=== PATIENT | female | born 1955 | race Caucasian/White ===

== ENCOUNTER 2017-04-01 12:48 | Observation (INO) | payer OTHER ==
[~2017-04-01] VITALS: Ht 165.1 cm; Wt 119.2 kg
[~2017-04-01 12:48] MED LIST: CALC500C70 PO; CETI10TA84 PO; LINA1CAP PO; LOSA100T65 PO; SUCR5SUS PO
[2017-04-01 14:45] LABS: BASO % 0.3 %; BASO ABS # 0.03 K/uL (0-0.2); COMPLETE YES; EOS % 1.7 %; HEMATOCRIT 41.4 % (37-47); IG% 0.2 %; LYMPH ABS # 2.37 K/uL (1.2-3.4); MEAN CELL VOLUME 92.2 fL (80-100); MEAN CORPUSCULAR HEMOGLOBIN 30.5 pg (25-34); MEAN CORPUSCULAR HGB CONC 33.1 g/dl (32-36); MEAN PLATELET VOLUME 9.9 fL (7.4-10.4); MONO % 5.2 %; NEUT % 68.6 %; PLATELET COUNT 201 K/uL (130-400); RED BLOOD COUNT 4.49 M/uL (4.2-5.4); WHITE BLOOD COUNT 9.87 K/uL (4.8-10.8)
[2017-04-01 14:56] LABS: POINT OF CARE PRO-BNP 86 pg/ml (0-900)
[2017-04-01 14:58] LABS: PROTHROMBIN TIME (PATIENT) 10.3 SECONDS (9.0-12.0)
[2017-04-01 15:06] LABS: BUN/CREATININE RATIO 22.1 (10-20); CALCIUM 9.3 mg/dl (8.5-10.1); CREATININE 0.62 mg/dl (0.60-1.20); MAGNESIUM 2.3 mg/dl (1.8-2.4); POTASSIUM 3.9 mmol/L (3.5-5.1)
[2017-04-01 15:09] LABS: ALB/GLOB RATIO 1.1 (0.9-2)
--- NOTE | 2017-04-01 15:09 | DIAGNOSTIC IMAGING REPORT ---
CHEST ONE VIEW PORTABLE CLINICAL HISTORY: Chest pain, dyspnea COMPARISON STUDY: 09/04/2014 FINDINGS: The bones soft tissues and hemidiaphragms are normal. The cardiomediastinal silhouette is normal. The lungs are clear. The pulmonary vasculature is normal. IMPRESSION: Negative chest. Electronically signed by: Homar Stahl M.D. 04/01/2017 3:08 PM Dictated Date/Time: 04/01/2017 3:07 PM
[2017-04-01] MEDS ORDERED: OPTIRAY 320 IV PRN (15:30)
--- NOTE | 2017-04-01 15:55 | EMERGENCY ROOM VISIT NOTE ---
History First contact with patient: 14:01 Chief Complaint: HEADACHE Stated Complaint: DIZZY,HOT,SWEATY THEN COLD,CANT SEE AT TIMES History of Present Illness The patient is a 61 year old female who presents to the Emergency Room via private vehicle accompanied by with complaints of "dizzy, hot, sweaty and cold, can't see at times". The patient states that between last week and this week, she has had episodes of substernal chest pain, that feels like a belt wrapped around her chest, radiates up to her neck region. This is been associated with diaphoresis, and shakiness. There is also been associated headache. She notes that when this happened she typically attempts to sleep it off and after 2-3 hours and dissipates. With this there is also associated shortness of breath. She states that most recently, she has experienced 3 episodes this week, and a random in nature. They're not associated with any certain activity and not with exertion. It is important note that she currently is in between and then switch from Cymbalta to trilintex. She also has an extensive abdominal history, and has had obstructions in the past and notes that this is related to that. She states that yesterday during one of these episodes, her blood pressure was 100/40, and then progress back to 112/ 58. Today around 11:30 a.m, she developed chest pain, that lasted roughly half an hour. She then ingested Tums with minimal relief. She does have a past medical history significant for hypertension, high cholesterol. She this time denies any arm weakness, history of heart trouble, blood clots, leg swelling, smoking, hormone use, prolonged travel, recent falls or trauma, urinary symptoms , vaginal discharge, dizziness or lightheadedness. She states this does not feel like her typical reflux. Review of Systems A complete 10-point Review of Systems was discussed with the patient, with pertinent positives and negatives listed in the History of Present Illness. All remaining Review of Systems questions can be considered negative unless otherwise specified. Past Medical/Surgical History Medical Problems: (1) Chest pain (2) Depression (3) Esophageal Reflux (4) Gastric ulcer (5) Glaucoma (6) Hiatal hernia (7) Hypercholesteremia (8) Hypertension (9) IBS (irritable bowel syndrome) (10) Right leg pain (11) Right leg pain Surgical Problems: (1) History of esophagogastroduodenoscopy (2) S/P cholecystectomy (3) S/P hysterectomy (4) S/P Matt fundoplication (without gastrostomy tube) procedure (5) S/P ventral herniorrhaphy Family History FH: coronary artery disease FATHER FH: liver cancer MOTHER Systemic lupus erythematosus BROTHER Social History Smoking Status: Never Smoker Alcohol Use: none Drug Use: none Marital Status: Housing Status: lives with family Occupation Status: employed Current/Historical Medications Scheduled Amlodipine Besylate (Amlodipine Besylate), 10 MG PO QAM Buspirone HCl (Buspirone HCl), 10 MG PO BID Dorzolamide Hcl (Trusopt Oph), 1 DROP OPB BID Duloxetine HCl (Duloxetine HCl), 30 MG PO HS Esomeprazole Magnesium (Nexium), 40 MG PO DAILY Hydrochlorothiazide (Hydrochlorothiazide), 25 MG PO DAILY Linaclotide (Linzess), 1 CAP PO HS Losartan Potassium (Cozaar), 100 MG PO QAM Timolol Maleate (Timolol 0.5% Oph Soln 15 Ml), 1 DROP OPB BID Vortioxetine HBr (Trintellix), 10 MG PO DAILY [Proair], 2 PUFF INH PRN UD Scheduled PRN Cetirizine (Zyrtec), 10 MG PO DAILY PRN for PRN Allergies Coded Allergies: Amoxicillin (Verified Allergy, Severe, AUGMENTIN-ITCH,SWELLING,DIFFICULTY BREATHING, 09/10/16) Clavulanic Acid (Verified Allergy, Severe, AUGMENTIN-ITCH,SWELLING, DIFFICULTY BREATHING, 09/10/16) Replaces AUGMENTIN 250 Penicillins (Verified Allergy, Severe, AUGMENTIN-ITCH,SWELLING,DIFFICULTY BREATHING, 09/10/16) Replaces AUGMENTIN 250 Sulfa Antibiotics (Verified Allergy, Mild, RASH, 04/01/17) Lisinopril (Verified Adverse Reaction, Mild, COUGH, 04/01/17) PER PCP RECORDS Physical Exam Vital Signs Date Time Temp Pulse Resp B/P Pulse Ox O2 Delivery O2 Flow Rate FiO2 04/01/17 17:06 62 18 162/82 97 Room Air 70 156/89 69 176/103 04/01/17 15:14 58 04/01/17 15:03 63 16 194/108 95 Room Air 04/01/17 15:00 58 181/85 63 194/108 04/01/17 13:04 36.6 62 16 161/82 95 Room Air Physical Exam VITAL SIGNS - Vital signs and nursing notes were reviewed. Patient is afebrile , hypertensive at 161/82, non-tachycardic and is saturating well on room air 95% . GENERAL -61-year-old female appearing her stated age who is in no acute distress. Communicates well with provider and answers questions appropriately. SKIN - Without rashes. No petechial rashes. HEAD - NC/AT. EYES - PERRL with EOMI bilaterally. Sclera anicteric. Palpebral conjunctiva pink and moist with no injection noted. EARS - No deformities of external structures noted on gross examination bilaterally. External auditory canals without discharge or otorrhea. Tympanic membranes pearly donato without retraction or bulging. No fluid or purulent material visualized behind the TM. Handle of malleus, umbo, cone of light, pars tensa/flaccid all easily visualized. NOSE - Midline and without cyanosis. No epistaxis or purulent drainage noted. Septum midline without deviation or septal hematoma noted. MOUTH/OROPHARYNX - Without perioral cyanosis. Buccal mucosa pink and moist and without leukoplakia. Tongue midline with equal elevation of palate bilaterally. No tonsillar hypertrophy, erythema, or exudates noted. Fair dentition noted. NECK - Neck with FROM. Supple to palpation. No nuchal rigidity. LUNGS - Chest wall symmetric without accessory muscle use, intercostals retractions, or central cyanosis. Normal vesicular breath sounds CTA B/L. No wheezes, rales, or rhonchi appreciated. CARDIAC - RRR with S1/S2. No murmur, rubs, or gallops appreciated. There is tenderness to palpation overlying the anterior chest. ABDOMEN - Abdominal contour without pulsations or visible masses. BS normoactive all four quadrants. No tenderness, palpable masses, hepatosplenomegaly, or ascites noted. EXTREMITIES - No clubbing or peripheral cyanosis. No pretibial edema present. +5 /5 strength noted in UE/LE bilaterally. NEUROLOGIC - Cranial nerves II through XII grossly intact. PSYCH - Pt is very pleasant and interacts well with examiner. Medical Decision & Procedures ER Provider Diagnostic Interpretation: CHEST CTA for PULMONARY ARTERIES CT DOSE: 618.22 mGy.cm HISTORY: Short of breath. Coughing. TECHNIQUE: Multiaxial CT images of the chest were performed following the intravenous administration of contrast to evaluate the pulmonary arteries. Maximal intensity projection images were also obtained. COMPARISON STUDY: Chest 04/01/2017. FINDINGS: There is a normal caliber thoracic aorta with no evidence for dissection. There is no evidence for pulmonary embolus. No pleural effusions. No pneumothorax. The liver and spleen are unremarkable. No mediastinal or hilar lymphadenopathy. The central airways are patent. The lungs are clear. IMPRESSION: No evidence for pulmonary embolus. Electronically signed by: Lj Maldonado M.D. 04/01/2017 4:17 PM Dictated Date/Time: 04/01/2017 4:10 PM CHEST ONE VIEW PORTABLE CLINICAL HISTORY: Chest pain, dyspnea COMPARISON STUDY: 09/04/2014 FINDINGS: The bones soft tissues and hemidiaphragms are normal. The cardiomediastinal silhouette is normal. The lungs are clear. The pulmonary vasculature is normal. IMPRESSION: Negative chest. Electronically signed by: Homar Stahl M.D. 04/01/2017 3:08 PM Dictated Date/Time: 04/01/2017 3:07 PM Laboratory Results 04/01/17 14:30 Red Blood Count 4.49, Mean Corpuscular Volume 92.2, Mean Corpuscular Hemoglobin 30.5, Mean Corpuscular Hemoglobin Concent 33.1, Mean Platelet Volume 9.9, Neutrophils (%) (Auto) 68.6, Lymphocytes (%) (Auto) 24.0, Monocytes (%) (Auto) 5.2, Eosinophils (%) (Auto) 1.7, Basophils (%) (Auto) 0.3, Neutrophils # (Auto) 6.77, Lymphocytes # (Auto) 2.37, Monocytes # (Auto) 0.51, Eosinophils # (Auto) 0.17, Basophils # (Auto) 0.03 04/01/17 14:30 Test 04/01/17 14:30 04/01/17 14:36 04/01/17 16:50 White Blood Count 9.87 K/uL (4.8-10.8) Red Blood Count 4.49 M/uL (4.2-5.4) Hemoglobin 13.7 g/dL (12.0-16.0) Hematocrit 41.4 % (37-47) Mean Corpuscular Volume 92.2 fL (80-100) Mean Corpuscular Hemoglobin 30.5 pg (25-34) Mean Corpuscular Hemoglobin Concent 33.1 g/dl (32-36) Platelet Count 201 K/uL (130-400) Mean Platelet Volume 9.9 fL (7.4-10.4) Neutrophils (%) (Auto) 68.6 % Lymphocytes (%) (Auto) 24.0 % Monocytes (%) (Auto) 5.2 % Eosinophils (%) (Auto) 1.7 % Basophils (%) (Auto) 0.3 % Neutrophils # (Auto) 6.77 K/uL (1.4-6.5) Lymphocytes # (Auto) 2.37 K/uL (1.2-3.4) Monocytes # (Auto) 0.51 K/uL (0.11-0.59) Eosinophils # (Auto) 0.17 K/uL (0-0.5) Basophils # (Auto) 0.03 K/uL (0-0.2) RDW Standard Deviation 43.0 fL (36.4-46.3) RDW Coefficient of Variation 12.8 % (11.5-14.5) Immature Granulocyte % (Auto) 0.2 % Immature Granulocyte # (Auto) 0.02 K/uL (0.00-0.02) Prothrombin Time 10.3 SECONDS (9.0-12.0) Prothromb Time International Ratio 1.0 (0.9-1.1) Activated Partial Thromboplast Time 25.1 SECONDS (21.0-31.0) Partial Thromboplastin Ratio 1.0 Anion Gap 4.0 mmol/L (3-11) Est Creatinine Clear Calc Drug Dose 124.3 ml/min Estimated GFR () 112.8 Estimated GFR (Non- 97.3 BUN/Creatinine Ratio 22.1 (10-20) Calcium Level 9.3 mg/dl (8.5-10.1) Magnesium Level 2.3 mg/dl (1.8-2.4) Total Bilirubin 0.5 mg/dl (0.2-1) Aspartate Amino Transf (AST/SGOT) 21 U/L (15-37) Alanine Aminotransferase (ALT/SGPT) 40 U/L (12-78) Alkaline Phosphatase 86 U/L (45-117) Total Protein 8.1 gm/dl (6.4-8.2) Albumin 4.2 gm/dl (3.4-5.0) Globulin 3.9 gm/dl (2.5-4.0) Albumin/Globulin Ratio 1.1 (0.9-2) Bedside D-Dimer > 450 ng/mlFEU (0-450) JQ-Ghk-H-Type Natriuretic Peptide 86 pg/ml (0-900) Urine Color YELLOW Urine Appearance CLEAR (CLEAR) Urine pH 5.0 (4.5-7.5) Urine Specific [place] 1.044 (1.000-1.030) Urine Protein NEG (NEG) Urine Glucose (UA) NEG (NEG) Urine Ketones NEG (NEG) Urine Occult Blood NEG (NEG) Urine Nitrite NEG (NEG) Urine Bilirubin NEG (NEG) Urine Urobilinogen NEG (NEG) Urine Leukocyte Esterase MODERATE (NEG) Urine WBC (Auto) 5-10 /hpf (0-5) Urine RBC (Auto) 0-4 /hpf (0-4) Urine Hyaline Casts (Auto) 0 /lpf (0-5) Urine Epithelial Cells (Auto) >30 /lpf (0-5) Urine Bacteria (Auto) NEG (NEG) Medical Decision Patient was seen and evaluated as above. After obtaining a thorough history and physical examination IV access was initiated and the above workup was performed. Patient presents to us today with chief complaint of headache, however after obtaining a thorough history and was more apparent that she was concerned about the hypotension, chest pain and shortness of breath. CBC reveals no leukocytosis or anemia. EKG reveals sinus bradycardia, first-degree AV block. Left axis deviation. No ectopy or ischemic change noted. When compared to EKG of 06/13/2016, PVCs are no longer present, and the SD interval has increased. Coagulation studies are normal other than a d-dimer that was elevated. This prompted CT scan of the chest. Benefits versus risk was discussed with the patient. CMP completely unremarkable other than an elevated BUN/creatinine ratio. Troponin negative 1. Urine reveals moderate leukocytes , 5-10 white blood cells and high specific gravity. Epithelial cells are greater than 30. I suspect a contaminated sample however culture pending. Chest x-ray and CTA were unremarkable. The d-dimer was performed because the patient was not able to the ruled out with the PERC. The patient was educated upon benefit versus risk of either going home or staying in the hospital for cardiac rule out. I informed her that lab work today looks appropriate however given her symptoms, I'm concerned for potential unstable angina, etc. I did discuss the case with my attending, and subsequently the hospitalist. Please refer to further documentation regarding her stay. In evaluation treatment this patient the following differential diagnoses were entertained: MD, ACS, PE, costochondritis, among others. Impression Primary Impression: Chest pain Departure Information Dispostion Admitted as an inpatient Condition FAIR Referrals Stephan Simon M.D. (MEDICAL) (PCP) Patient Instructions My [facility]
[2017-04-01] MEDS ORDERED: BSP/10 PO (16:18)
[2017-04-01] MEDS ORDERED: DORZ2SOL17 OPB (16:18)
[2017-04-01] MEDS ORDERED: VORT1TAB3 PO (16:18)
[2017-04-01] MEDS ORDERED: HYDR25TA5 PO (16:19)
[2017-04-01] MEDS ORDERED: PROAIR INH (16:19)
--- NOTE | 2017-04-01 16:19 | DIAGNOSTIC IMAGING REPORT ---
CHEST CTA for PULMONARY ARTERIES CT DOSE: 618.22 mGy.cm HISTORY: Short of breath. Coughing. TECHNIQUE: Multiaxial CT images of the chest were performed following the intravenous administration of contrast to evaluate the pulmonary arteries. Maximal intensity projection images were also obtained. COMPARISON STUDY: Chest 04/01/2017. FINDINGS: There is a normal caliber thoracic aorta with no evidence for dissection. There is no evidence for pulmonary embolus. No pleural effusions. No pneumothorax. The liver and spleen are unremarkable. No mediastinal or hilar lymphadenopathy. The central airways are patent. The lungs are clear. IMPRESSION: No evidence for pulmonary embolus. Electronically signed by: Lj Maldonado M.D. 04/01/2017 4:17 PM Dictated Date/Time: 04/01/2017 4:10 PM
[2017-04-01] MEDS ORDERED: DULO1CAP40 PO (16:58)
[2017-04-01] MEDS ORDERED: TMPOPS15 OPB (16:58)
[2017-04-01] MEDS ORDERED: NRV/10 PO (16:58)
[2017-04-01 17:07] LABS: URINE APPEARANCE CLEAR (CLEAR); URINE BILIRUBIN NEG (NEG); URINE COLOR YELLOW; URINE EPITHELIAL CELL AUTO >30 /lpf (0-5); URINE NITRITE NEG (NEG); URINE SPECIFIC GRAVITY 1.044 (1.000-1.030); UROBILINOGEN NEG (NEG); ZZUR CULT IF INDIC CLEAN CATCH NO
[2017-04-01 17:11] LABS: MANUAL MICROSCOPIC REQUIRED? NO; REVIEW REQ? NO
[2017-04-01] MEDS ORDERED: ACETAMINOPHEN 325 MG TAB PO PRN (18:00)
[2017-04-01] MEDS ORDERED: NITROGLYCERIN 0.4 MG SL PER TAB CHARGE SL PRN (18:00)
[2017-04-01] MEDS ORDERED: ONDANSETRON INJ 2 MG/ML 2 ML VIAL IV PRN (18:00)
[2017-04-01] MEDS ORDERED: ASPIRIN 324 MG CHEW PO STA (18:03)
[2017-04-01 19:49] VITALS: BP 169/89; PULSE 59; TEMP 36.4; O2SAT 94
[2017-04-01 19:50] VITALS: BP 169/89; PULSE 59; TEMP 36.4; O2SAT 94; Ht 165.1 cm; Wt 119.2 kg
[2017-04-01] MEDS ORDERED: NXM/40 PO (19:58)
[2017-04-01] MEDS ORDERED: IV FLUIDS COMPLETED PRN (20:00)
[2017-04-01] MEDS ORDERED: PANTOprazole INJ 40 MG in SYRINGE 0 ML IV SCH (20:30)
[2017-04-01] MEDS ORDERED: ASPIRIN 81 MG CHEW PO STA (20:31)
[2017-04-01] MEDS ORDERED: ENOXAPARIN 40 MG/0.4 ML SYR SC SCH (21:00)
[2017-04-01] MEDS ORDERED: NON-FORMULARY MEDICATION (Linaclotide (Linzess) 1 CAP) PO SCH (21:00)
[2017-04-01] MEDS: DORZOLAMIDE HCL 2% OPH SOLN 10 ML BTL OPB SCH (21:18)
[2017-04-01] MEDS: TIMOLOL MALEATE 0.5% OP SOLN 5 ML BTL OPB SCH (21:19)
[2017-04-01 21:31] LABS: CKMB/CK RATIO 1.2 (0-3.0)
[2017-04-01] MEDS ORDERED: CLONIDINE HCL 0.1 MG TAB PO PRN (21:45)
--- NOTE | 2017-04-01 22:04 | History and Physical ---
History & Physical Date & Time of Service: April 01, 2017 at 21:52 Chief Complaint: Chest Pain Primary Care Physician: Stephan Simon M.D. (MEDICAL) History of Present Illness Source: patient, clinic records, hospital records 61 year old female with history of Morbid Obesity, HTN, HLD, History of Smoking presenting with recurrence chest discomfort x 1-2 weeks. Patient follows with for Primary Care. Patient states she has been having intermittent chest discomfort- "tightness", central, non radiating, unrelated to exertion, associated with sweating and feeling warm. Episodes are relieved with rest. Around 11 today, patient was driving when she started to have the chest discomfort again. Upon coming home, the chest tightness did not resolve prompting consult to the ER. Patient was noted to be hypertensive at the ER. EKG no signs of acute ischemia, Cardiac markers x1 negative CT chest no PE. On my exam, patient's BP was 176/100. She states that the chest tightness has resolved. No dyspnea, dizziness, nausea, diaphoresis. Reports posterior cervical pain which is chronic, relieved by Alleve that she has been taking for years. Past Medical/Surgical History Medical Problems: (1) Depression Status: Chronic (2) Esophageal Reflux Status: Chronic (3) Gastric ulcer Status: Chronic (4) Glaucoma Status: Chronic (5) Hiatal hernia Status: Chronic (6) Hypercholesteremia Status: Chronic (7) Hypertension Status: Chronic (8) IBS (irritable bowel syndrome) Status: Chronic (9) Right leg pain Status: Resolved (10) Right leg pain Status: Resolved Surgical Problems: (1) History of esophagogastroduodenoscopy Status: Chronic (2) S/P cholecystectomy Status: Chronic (3) S/P hysterectomy Status: Chronic (4) S/P Matt fundoplication (without gastrostomy tube) procedure Status: Chronic (5) S/P ventral herniorrhaphy Status: Chronic Family History FH: coronary artery disease FATHER FH: liver cancer MOTHER Systemic lupus erythematosus BROTHER Social History Smoking Status: Unknown if Ever Smoked Drug Use: none Marital Status: Occupational Status: employed Multi-Drug Resistant Organisms History of MDRO: No Allergies Coded Allergies: Amoxicillin (Verified Allergy, Severe, AUGMENTIN-ITCH,SWELLING,DIFFICULTY BREATHING, 09/10/16) Clavulanic Acid (Verified Allergy, Severe, AUGMENTIN-ITCH,SWELLING, DIFFICULTY BREATHING, 09/10/16) Replaces AUGMENTIN 250 Penicillins (Verified Allergy, Severe, AUGMENTIN-ITCH,SWELLING,DIFFICULTY BREATHING, 09/10/16) Replaces AUGMENTIN 250 Sulfa Antibiotics (Verified Allergy, Mild, RASH, 04/01/17) Lisinopril (Verified Adverse Reaction, Mild, COUGH, 04/01/17) PER PCP RECORDS Home Medications Scheduled Amlodipine Besylate (Amlodipine Besylate), 10 MG PO QAM Buspirone HCl (Buspirone HCl), 10 MG PO BID Dorzolamide Hcl (Trusopt Oph), 1 DROP OPB BID Duloxetine HCl (Duloxetine HCl), 30 MG PO HS Esomeprazole Magnesium (Nexium), 40 MG PO DAILY Hydrochlorothiazide (Hydrochlorothiazide), 25 MG PO DAILY Linaclotide (Linzess), 1 CAP PO HS Losartan Potassium (Cozaar), 100 MG PO QAM Timolol Maleate (Timolol 0.5% Oph Soln 15 Ml), 1 DROP OPB BID Vortioxetine HBr (Trintellix), 10 MG PO DAILY [Proair], 2 PUFF INH PRN UD Scheduled PRN Cetirizine (Zyrtec), 10 MG PO DAILY PRN for PRN Review of Systems Constitutional- no fever; no weight loss Eyes- no acute visual changes ENT- no sinus drainage; no pharyngitis Pulmonary- no cough, no wheezing, no shortness of breath Cardiac- (+) as noted above GI- no nausea, no vomiting, no diarrhea, no melena, no hematochezia - no dysuria, no hematuria Musculoskeletal- no arthralgias, no myalgias Derm- no rashes, no new skin lesions, no changing skin lesions Hematologic- no unusual bruising, no unusual bleeding Lymphatics- no adenopathy Endocrine- no polyuria or polydipsia; no heat or cold intolerance Neuro- no headaches, no focal neurologic symptoms Psych- no anxiety, no depression Physical Exam Vital Signs Date Time Temp Pulse Resp B/P Pulse Ox O2 Delivery O2 Flow Rate FiO2 04/01/17 20:00 Room Air 04/01/17 19:50 36.4 59 20 169/89 94 Room Air 04/01/17 19:49 36.4 59 20 169/89 94 Room Air 04/01/17 19:13 77 18 98 04/01/17 17:06 62 18 162/82 97 Room Air 70 156/89 69 176/103 04/01/17 15:14 58 04/01/17 15:03 63 16 194/108 95 Room Air 04/01/17 15:00 58 181/85 63 194/108 04/01/17 13:04 36.6 62 16 161/82 95 Room Air General Appearance: WD/WN, no apparent distress Head: normocephalic, atraumatic Eyes: normal inspection, EOMI, sclerae normal ENT: normal ENT inspection, hearing grossly normal, pharynx normal Neck: supple, no adenopathy, thyroid normal, no JVD, trachea midline Respiratory/Chest: chest non-tender, lungs clear, normal breath sounds, no respiratory distress, no accessory muscle use Cardiovascular: regular rate, rhythm, no edema, no JVD, no murmur, normal peripheral pulses Abdomen/GI: normal bowel sounds, non tender, soft Back: normal inspection, no CVA tenderness Extremities/Musculoskelatal: normal inspection, no calf tenderness, no pedal edema 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, no motor/sensory deficits, alert, normal mood/affect, normal reflexes, oriented x 3 Skin: normal color, warm/dry, no rash Lymphatic: no adenopathy Diagnostics Laboratory Results Results Past 24 Hours Test 04/01/17 14:30 04/01/17 14:36 04/01/17 16:50 04/01/17 20:51 Range/Units White Blood Count 9.87 4.8-10.8 K/uL Red Blood Count 4.49 4.2-5.4 M/uL Hemoglobin 13.7 12.0-16.0 g/dL Hematocrit 41.4 37-47 % Mean Corpuscular Volume 92.2 80-100 fL Mean Corpuscular Hemoglobin 30.5 25-34 pg Mean Corpuscular Hemoglobin Concent 33.1 32-36 g/dl Platelet Count 201 130-400 K/uL Mean Platelet Volume 9.9 7.4-10.4 fL Neutrophils (%) (Auto) 68.6 % Lymphocytes (%) (Auto) 24.0 % Monocytes (%) (Auto) 5.2 % Eosinophils (%) (Auto) 1.7 % Basophils (%) (Auto) 0.3 % Neutrophils # (Auto) 6.77 1.4-6.5 K/uL Lymphocytes # (Auto) 2.37 1.2-3.4 K/uL Monocytes # (Auto) 0.51 0.11-0.59 K/uL Eosinophils # (Auto) 0.17 0-0.5 K/uL Basophils # (Auto) 0.03 0-0.2 K/uL RDW Standard Deviation 43.0 36.4-46.3 fL RDW Coefficient of Variation 12.8 11.5-14.5 % Immature Granulocyte % (Auto) 0.2 % Immature Granulocyte # (Auto) 0.02 0.00-0.02 K/uL Prothrombin Time 10.3 9.0-12.0 SECONDS Prothromb Time International Ratio 1.0 0.9-1.1 Activated Partial Thromboplast Time 25.1 21.0-31.0 SECONDS Partial Thromboplastin Ratio 1.0 Sodium Level 141 136-145 mmol/L Potassium Level 3.9 3.5-5.1 mmol/L Chloride Level 106 98-107 mmol/L Carbon Dioxide Level 31 21-32 mmol/L Anion Gap 4.0 3-11 mmol/L Blood Urea Nitrogen 14 7-18 mg/dl Creatinine 0.62 0.60-1.20 mg/dl Est Creatinine Clear Calc Drug Dose 124.3 ml/min Estimated GFR () 112.8 Estimated GFR (Non- 97.3 BUN/Creatinine Ratio 22.1 10-20 Random Glucose 96 70-99 mg/dl Calcium Level 9.3 8.5-10.1 mg/dl Magnesium Level 2.3 1.8-2.4 mg/dl Total Bilirubin 0.5 0.2-1 mg/dl Aspartate Amino Transf (AST/SGOT) 21 15-37 U/L Alanine Aminotransferase (ALT/SGPT) 40 12-78 U/L Alkaline Phosphatase 86 45-117 U/L Troponin I < 0.015 < 0.015 0-0.045 ng/ml Total Protein 8.1 6.4-8.2 gm/dl Albumin 4.2 3.4-5.0 gm/dl Globulin 3.9 2.5-4.0 gm/dl Albumin/Globulin Ratio 1.1 0.9-2 Bedside D-Dimer > 450 0-450 ng/mlFEU SG-Qyr-I-Type Natriuretic Peptide 86 0-900 pg/ml Urine Color YELLOW Urine Appearance CLEAR CLEAR Urine pH 5.0 4.5-7.5 Urine Specific [place] 1.044 1.000-1.030 Urine Protein NEG NEG Urine Glucose (UA) NEG NEG Urine Ketones NEG NEG Urine Occult Blood NEG NEG Urine Nitrite NEG NEG Urine Bilirubin NEG NEG Urine Urobilinogen NEG NEG Urine Leukocyte Esterase MODERATE NEG Urine WBC (Auto) 5-10 0-5 /hpf Urine RBC (Auto) 0-4 0-4 /hpf Urine Hyaline Casts (Auto) 0 0-5 /lpf Urine Epithelial Cells (Auto) >30 0-5 /lpf Urine Bacteria (Auto) NEG NEG Total Creatine Kinase 166 26-192 U/L Creatine Kinase MB 2.0 0.5-3.6 ng/ml Creatine Kinase MB Ratio 1.2 0-3.0 Diagnostic Radiology CXR: no acute findings; CT chest: negative for PE EKG sinus bradycardia, left axis deviation, no signs of acute ischemia or infarct Impression Assessment and Plan 61 year old female with history of Morbid Obesity, HTN, HLD, History of Smoking presenting with recurrence chest discomfort x 1-2 weeks. CHEST PAIN R/O ACS FROM UNCONTROLLED HYPERTENSION? - risk factors: history of smoking, family history, hypertension - serial cardiac markers echo - start Aspirin cannot start bet ozzie as patient has sinus bradycardia on ekg - add Nitropaste continue usual Losartan 100mg, Amlodipine 10mg, HCTZ 25mg ELEVATED D DIMER - CT chest negative for PE - check Doppler US of the legs HYPERTENSION - management as noted above DYSLIPIDEMIA - check lipid panel - Pravastatin has been discontinued as outpatient HISTORY OF DEPRESSION stable continue Trintellix CHRONIC CERVICALGIA - hold NSAIDs - PRN Tramadol DVT PROPHYLAXIS Lovenox Disposition anticipate d/c home when medically stable Advanced Directives Existing Living Will: No Existing Power of Pipe Assembly Worker: No VTE Prophylaxis VTE Risk Assessment Done? Y/N: Yes Risk Level: Moderate
[2017-04-01] MEDS: TRAMADOL HCL 50 MG TAB PO PRN (22:26)
[2017-04-01 23:00] VITALS: BP 131/66; PULSE 66
[2017-04-01] MEDS: NITROGLYCERIN OINT 2% 1GM PACKET EXT SCH (23:31)
[2017-04-01 23:34] VITALS: BP 172/87; PULSE 63; TEMP 36.7; O2SAT 92
[2017-04-02] VITALS (10 sets, daily range): BP systolic 117–179; BP diastolic 62–83; PULSE 60–66; TEMP 36.5–37; O2SAT 90–95
[2017-04-02] MEDS ORDERED: TRINTELLIX-ORDER AWAITING ACTION SCH
[2017-04-02] MEDS: NITROGLYCERIN OINT 2% 1GM PACKET EXT SCH ×2 (06:08→12:17)
[2017-04-02] MEDS: DORZOLAMIDE HCL 2% OPH SOLN 10 ML BTL OPB SCH (08:30)
[2017-04-02] MEDS: TIMOLOL MALEATE 0.5% OP SOLN 5 ML BTL OPB SCH (08:34)
[2017-04-02] MEDS: TRAMADOL HCL 50 MG TAB PO PRN (08:40)
[2017-04-02] MEDS ORDERED: LOSARTAN POTASSIUM 50 MG TAB PO SCH (09:00)
[2017-04-02] MEDS ORDERED: VORTIOXETINE HBR 10 MG PO SCH (09:00)
[2017-04-02] MEDS ORDERED: HYDROCHLOROTHIAZIDE 25 MG TAB PO SCH (09:00)
[2017-04-02] MEDS ORDERED: ASPIRIN 81 MG ECTAB PO SCH (09:00)
[2017-04-02] MEDS ORDERED: AMLODIPINE BESYLATE 5 MG TAB PO SCH (09:00)
[2017-04-02] MEDS ORDERED: PERFLUTREN LIPID MICROSPHERE (DEFINITY) IV ONE (09:48)
[2017-04-02] MEDS ORDERED: PANTOprazole INJ 40 MG in SYRINGE 0 ML IV SCH (11:00)
--- NOTE | 2017-04-02 13:06 | ECHOCARDIOGRAM REPORT ---
*NOTICE TO RECEIVING DEMOCRAT AGENCY This information is strictly Confidential and protected under [place] law. [place] law prohibits you from making any further disclosure of this information unless further disclosure is expressly permitted by the written consent of the person to whom it pertains or is authorized by law. A general authorization for the release of medical or other information is not sufficient for this purpose. Hospital accepts no responsibility if the information is made available to any other person, INCLUDING THE PATIENT. Interpretation Summary * Name: BONNIE MORSE Study Date: 04/02/2017 09:14 AM BP: 158/71 mmHg * Patient Location: [facility]\S\N278\S\2 HR: 65 * : 1955 (M/d/yyyy) Gender: Female Height: 65 in * Age: 61 yrs Ethnicity: CA Weight: 266 lb * Ordering Physician: Venkat Toro * Referring Physician: Stephan Simon (MEDICAL) * Performed By: Shantell Lubin * * Reason For Study: CHEST PAIN * BSA: 2.2 m2 * -- Conclusions -- * There is moderate concentric left ventricular hypertrophy. * Left ventricular systolic function is normal. * Ejection Fraction = 65-70%. * No significant valvular pathology. Procedure Details * A complete two-dimensional transthoracic echocardiogram was performed (2D, M-mode, Doppler and color flow Doppler). * There were technical limitations due to patient'sbody habitus * A contrast injection of Definity was performed to improve assessment of LV function. * Contrast was injected into an intravenous site in the left arm. * One vial of Definity ultrasound contrast was diluted in normal saline to a total volume of 10 ml. A total of '2' ml of solution was administered during imaging. * Lot # [id number] of Definity utilized for procedure. * Expiration date 03/08. * The attending nurse who injected the contrast agent was CASSIDY ACKERMAN RN. Left Ventricle * The left ventricle is normal in size. * There is moderate concentric left ventricular hypertrophy. * Ejection Fraction = 65-70%. * Left ventricular systolic function is normal. * The left ventricular wall motion is normal. Right Ventricle * The right ventricle is normal size. * The right ventricular systolic function is normal. Atria * The left atrial size is normal. * Right atrial size is normal. * The interatrial septum is intact with no evidence for an atrial septal defect. Mitral Valve * The mitral valve anatomy is normal. * Significant mitral regurgitation is absent. Tricuspid Valve * The tricuspid valve is normal in structure and function. Aortic Valve * The aortic valve is normal in structure and function. Pulmonic Valve * The pulmonic valve is not well visualized. * There is no significant pulmonary regurgitation. Great Vessels * The aortic root and proximal ascending aorta are normal sized. Pericardium/Pleural * There is no pericardial effusion. MMode 2D Measurements and Calculations IVSd 1.6 cm IVSs 1.8 cm LVIDd 4.3 cm LVIDs 2.7 cm LVPWd 0.95 cm LVPWs 1.6 cm IVS/LVPW 1.7 FS 36.2 % EDV(Teich) 81.5 ml ESV(Teich) 27.6 ml EF(Teich) 66.2 % EDV(cubed) 77.6 ml ESV(cubed) 20.2 ml EF(cubed) 74.0 % % IVS thick 11.0 % % LVPW thick 68.2 % LV mass(C)d 198.9 grams LV mass(C)dI 89.1 grams/m\S\2 LV mass(C)s 171.7 grams LV mass(C)sI 76.9 grams/m\S\2 SV(Teich) 53.9 ml SI(Teich) 24.2 ml/m\S\2 SV(cubed) 57.4 ml SI(cubed) 25.7 ml/m\S\2 ACS 1.3 cm asc Aorta Diam 3.2 cm LVOT diam 1.7 cm LVOT area 2.4 cm\S\2 LVAd ap4 36.8 cm\S\2 LVLd ap4 9.5 cm EDV(MOD-sp4) 113.9 ml EDV(sp4-el) 120.5 ml LVAs ap4 19.8 cm\S\2 LVLs ap4 8.2 cm ESV(MOD-sp4) 38.3 ml ESV(sp4-el) 40.8 ml EF(MOD-sp4) 66.4 % EF(sp4-el) 66.1 % LVAd ap2 22.8 cm\S\2 LVLd ap2 7.7 cm EDV(MOD-sp2) 55.2 ml EDV(sp2-el) 57.4 ml LVAs ap2 12.6 cm\S\2 LVLs ap2 6.9 cm ESV(MOD-sp2) 18.1 ml ESV(sp2-el) 19.5 ml EF(MOD-sp2) 67.1 % EF(sp2-el) 66.0 % LVLd %diff -23.81 % EDV(MOD-bp) 89.4 ml LVLs %diff -17.96 % ESV(MOD-bp) 28.7 ml EF(MOD-bp) 68.0 % SV(MOD-sp4) 75.7 ml SI(MOD-sp4) 33.9 ml/m\S\2 SV(MOD-sp2) 37.1 ml SI(MOD-sp2) 16.6 ml/m\S\2 SV(MOD-bp) 60.8 ml SI(MOD-bp) 27.2 ml/m\S\2 SV(sp4-el) 79.7 ml SI(sp4-el) 35.7 ml/m\S\2 SV(sp2-el) 37.9 ml SI(sp2-el) 17.0 ml/m\S\2 Doppler Measurements and Calculations MV E max mitchell 80.6 cm/sec MV A max mitchell 82.3 cm/sec MV E/A 0.98 MV dec time 0.37 sec Ao V2 max 158.9 cm/sec Ao max PG 10.1 mmHg Ao max PG (full) 6.1 mmHg CLAUDIA(V,A) 1.5 cm\S\2 CLAUDIA(V,D) 1.5 cm\S\2 LV V1 max PG 4.0 mmHg LV V1 max 99.4 cm/sec PA V2 max 107.8 cm/sec PA max PG 4.7 mmHg PI end-d mitchell 107.1 cm/sec
--- NOTE | 2017-04-02 15:59 | CARDIOLOGY CONSULTATION ---
DATE OF CONSULTATION: 04/02/2017 ATTENDING PHYSICIAN: Venkat Toro MD REASON FOR CONSULTATION: Chest pain. HISTORY OF PRESENT ILLNESS: This is a 61-year-old female with a history of fibromyalgia, obesity, and hypertension, who has been having recurrent chest pain for several weeks. This pain is atypical in the sense that it lasts continuously for several hours. It is increased with respiration and movement. It is not necessarily associated with activity or shortness of breath. She presented to the Emergency Department with the above complaints. Her EKG shows no acute changes that would suggest ischemic heart disease and her cardiac markers have been negative since admission. Her pain is very reproducible by palpation across the anterior chest along the costosternal joints. She has no prior history of diabetes. She is treated for hypertension. She has a remote history of smoking, but quit over 30 years ago. ALLERGIES: TO AMOXICILLIN, CLAVULANIC ACID, PENICILLIN, SULFA ANTIBIOTICS AND LISINOPRIL. PAST MEDICAL HISTORY: As outlined above, she has a history of fibromyalgia. She also was treated for GERD, esophageal reflux and hiatal hernia. She has a history of hypertension and irritable bowel syndrome, which is cared for by the GI service. She has no prior history of heart disease, strokes or kidney disease. SOCIAL HISTORY: She lives with her . FAMILY MEDICAL HISTORY: Significant for father with coronary artery disease. REVIEW OF SYSTEMS: A 10-point review of systems is negative except for the history of chief complaint. PHYSICAL EXAMINATION: GENERAL: She is alert and oriented. VITAL SIGNS: Blood pressure is 150/80, pulse is regular at 60 beats per minute. She is afebrile. HEENT: She is normocephalic. Pupils are equal and reactive to light. Extraocular muscles are intact bilaterally. NECK: The neck veins are flat. The carotids have good upstrokes bilaterally without bruits. Thyroid is nonpalpable. RESPIRATORY: Breath sounds equal bilaterally and clear to auscultation. CARDIOVASCULAR: Heart has a regular rhythm. Normal S1 and S2. No S3 or S4. No cardiac rubs or murmurs heard. Chest pain is very reproducible with palpation across the anterior chest. GASTROINTESTINAL: Abdomen is soft and nontender without organomegaly. EXTREMITIES: Free of edema, digit clubbing, or cyanosis. NEUROLOGIC: Grossly intact. SKIN: Warm to touch. LYMPH NODES: Negative to palpation. LABORATORY DATA: EKG reveals a sinus rhythm with a first-degree AV block and is otherwise within normal limits. Cardiac troponins are negative x3. Creatinine is 0.62. Hemoglobin is 13.7. IMPRESSION: 1. Noncardiac chest pain, most likely related to fibromyalgia, as it is very reproducible by palpation of the costosternal joints. 2. Gastroesophageal reflux. 3. Obesity. 4. Irritable bowel syndrome. RECOMMENDATIONS: I will review the echocardiogram when it is completed; however, I think her chest pain is very unlikely to be cardiac in origin. I would treat her chest pain with nonsteroidal anti-inflammatory medications, which she takes on occasion for her fibromyalgia. I do not believe any additional cardiac testing is required during her hospital stay. At some point, because of her age and family history, she can be screened as an outpatient with stress testing. In regard to her hypertension, I believe also that that can be managed as an outpatient.
--- NOTE | 2017-04-02 16:49 | Progress Note ---
Medicine Progress Note Date & Time of Visit: April 02, 2017 at 16:41. Subjective patient seen resting in bed, comfortable states she feels much better- "i feel human again" no chest pain, dyspnea, palpitations, dizziness, weakness denies other symptoms states she is ready and would like to be discharged today Objective Last 8 Hrs Date Time Temp Pulse Resp B/P Pulse Ox O2 Delivery O2 Flow Rate FiO2 04/02/17 15:06 37.0 63 18 117/73 92 04/02/17 11:33 36.5 60 18 139/62 90 Physical Exam: General- oriented x 3, not in distress, speaks in sentences with no effort Eyes- anicteric Neck- supple, no JVD Lungs- clear breath sounds bilaterally Heart- normal rate, regular rhythm; no murmurs Abdomen- normal rate, regular rhythm, no murmurs Extremities- no pretibial edema, no calf tenderness Neuro- alert, oriented x 3; no gross focal deficits Skin- warm & dry Laboratory Results: Last 24 Hours Test 04/01/17 16:50 04/01/17 20:51 04/02/17 02:15 Urine Color YELLOW Urine Appearance CLEAR Urine pH 5.0 Urine Specific [place] 1.044 Urine Protein NEG Urine Glucose (UA) NEG Urine Ketones NEG Urine Occult Blood NEG Urine Nitrite NEG Urine Bilirubin NEG Urine Urobilinogen NEG Urine Leukocyte Esterase MODERATE Urine WBC (Auto) 5-10 /hpf Urine RBC (Auto) 0-4 /hpf Urine Hyaline Casts (Auto) 0 /lpf Urine Epithelial Cells (Auto) >30 /lpf Urine Bacteria (Auto) NEG Total Creatine Kinase 166 U/L 136 U/L Creatine Kinase MB 2.0 ng/ml 1.3 ng/ml Creatine Kinase MB Ratio 1.2 1.0 Troponin I < 0.015 ng/ml < 0.015 ng/ml Assessment & Plan 61 year old female with history of Morbid Obesity, HTN, HLD, History of Smoking presenting with recurrence chest discomfort x 1-2 weeks. CHEST PAIN R/O ACS FROM UNCONTROLLED HYPERTENSION? - risk factors: history of smoking, family history, hypertension - BP systolic 190s on admission - serial cardiac markers: negative ekg: sinus bradycardia with 1st degree av block echo: * There is moderate concentric left ventricular hypertrophy. * Left ventricular systolic function is normal. * Ejection Fraction = 65-70%. * No significant valvular pathology. - given Aspirin and Nitropaste continued on usual Losartan 100mg, Amlodipine 10mg, HCTZ 25mg BP improved to 117/73 - evaluated by Dr. Ramsey, Masonry Supervisor chest pain atypical, likely musculoskeletal etiology - discharge plan: add Clonidine 0.1mg po BID continue usual Losartan, Amlodipine, HCTZ monitor BP on ff up with PCP outpatient stress testing ELEVATED D DIMER - CT chest negative for PE - check Doppler US of the legs HYPERTENSION - management as noted above DYSLIPIDEMIA - ff up as outpatient HISTORY OF DEPRESSION stable continue Trintellix CHRONIC CERVICALGIA - continue usual pain medication DVT PROPHYLAXIS Lovenox Disposition d/c home today ff up with PCP in 1 week Current Inpatient Medications: Current Inpatient Medications Medications (Trade) Dose Ordered Sig/Temitope Route Start Time Stop Time Status Last Admin Dose Admin Ioversol (Optiray 320) 100 ml UD PRN IV 04/01/17 15:30 04/05/17 15:29 Enoxaparin Sodium (Lovenox Inj) 40 mg Q24H SC 04/01/17 21:00 05/01/17 20:59 04/01/17 21:20 40 MG Acetaminophen (Tylenol Tab) 650 mg Q4H PRN PO 04/01/17 18:00 05/01/17 17:59 Ondansetron HCl (Zofran Inj) 4 mg Q6H PRN IV 04/01/17 18:00 05/01/17 17:59 Nitroglycerin (Nitrostat Tab) 0.4 mg UD PRN SL 04/01/17 18:00 05/01/17 17:59 Aspirin (Ecotrin Tab) 81 mg QAM PO 04/02/17 09:00 05/02/17 08:59 04/02/17 08:33 81 MG Nitroglycerin 0.5 inch 0.5 inch Q6H EXT 04/02/17 00:00 05/02/17 00:00 04/02/17 12:17 0.5 INCH Pantoprazole Sodium/Syringe (Protonix Inj/ Syringe) 10 ml @ 5 mls/min DAILY@11 IV 04/02/17 11:00 05/02/17 10:59 04/02/17 12:17 5 MLS/MIN Dorzolamide HCl (Trusopt 2% Oph Soln) 1 drops BID OPB 04/01/17 21:00 05/01/17 20:59 04/02/17 08:30 1 DROPS Hydrochlorothiazide (Hydrochlorothiazide Tab) 25 mg DAILY PO 04/02/17 09:00 05/02/17 08:59 04/02/17 08:33 25 MG Losartan Potassium (coZAAR TAB) 100 mg QAM PO 04/02/17 09:00 05/02/17 08:59 04/02/17 08:35 100 MG Timolol Maleate (Timoptic 0.5% Oph Soln) 1 drops BID OPB 04/01/17 21:00 05/01/17 20:59 04/02/17 08:34 1 DROPS Amlodipine Besylate (Norvasc Tab) 10 mg QAM PO 04/02/17 09:00 05/02/17 08:59 04/02/17 08:33 10 MG Buspirone HCl (Buspar Tab) 10 mg BID PO 04/01/17 21:00 05/01/17 20:59 04/02/17 08:31 10 MG Miscellaneous (Iv Fluids Completed) 1 ea PRN PRN N/A 04/01/17 20:00 04/01/18 19:59 Miscellaneous Information (Order Awaiting Action) 1 ea QS N/A 04/02/17 00:00 05/02/17 00:00 Miscellaneous Information (Order Awaiting Action) 1 ea QS N/A 04/02/17 00:00 05/02/17 00:00 Tramadol HCl (Ultram Tab) 50 mg Q6H PRN PO 04/01/17 21:45 05/01/17 21:44 04/02/17 08:40 50 MG Clonidine HCl (Catapres Tab) 0.1 mg Q6H PRN PO 04/01/17 21:45 05/01/17 21:44
[2017-04-02] MEDS ORDERED: CTP1X PO (16:50)
--- NOTE | 2017-04-02 16:57 | Discharge Instructions ---
Discharge Instructions Date of Service April 02, 2017. Admission Reason for Admission: Chest Pain Discharge Discharge Diagnosis / Problem: CHEST PAIN Discharge Goals Goal(s): Diagnostic testing, Therapeutic intervention Activity Recommendations Activity Limitations: as noted below (NO HEAVY EXERTION UNTIL RE-EVALUATED BY PRIMARY CARE PHYSICIAN) Lifting Limitations: until after follow-up appointment Exercise/Sports Limitations: until after follow-up appointment . Instructions / Follow-Up Instructions / Follow-Up PLEASE REVIEW YOUR NEW MEDICATION AND FOLLOW INSTRUCTIONS CAREFULLY. RETURN TO ER IMMEDIATELY IF WITH RECURRENCE OF SYMPTOMS. CALL PRIMARY CARE PHYSICIAN OR RETURN TO ER IMMEDIATELY IF YOU HAVE WEAKNESS, DIZZINESS, HEADACHE. OBSERVE LOW SALT DIET (LESS THAN 2G OF SODIUM A DAY OR LESS THAN 1 TEASPOON OF SALT A DAY). FOLLOW UP WITH PRIMARY CARE PHYSICIAN IN 1 WEEK (SCHEDULING DEPARTMENT WILL CALL YOU REGARDING THE APPOINTMENT DATE). Current Hospital Diet Patient's current hospital diet: AHA Diet (Heart Healthy) Discharge Diet Recommended Diet: AHA Diet (Heart Healthy) Procedures Procedures Performed: ECHOCARDIOGRAM Pending Studies Studies pending at discharge: yes List of pending studies: STRESS TEST Medical Emergencies . Who to Call and When: Medical Emergencies: If at any time you feel your situation is an emergency, please call 911 immediately. . Non-Emergent Contact Non-Emergency issues call your: Primary Care Provider Call Non-Emergent contact if: you have a fever, your pain is not controlled, you have any medication questions . . "Provider Documentation" section prepared by Venkat Toro. . VTE Core Measure Inpt VTE Proph given/why not?: Enoxaparin (Lovenox)SQ
--- NOTE | 2017-04-02 17:01 | Discharge Summary ---
Discharge Summary Date of Service April 02, 2017. Discharge Summary Admission Date: April 01, 2017 at 18:00 Discharge Date: April 02, 2017 Discharge Disposition: Home Principal Diagnosis: ATYPICAL CHEST PAIN, UNCONTROLLED HYPERTENSION Secondary Diagnoses/Problems: PLEASE REFER TO HOSPITAL COURSE BELOW. Procedures: Interpretation Summary * Name: BONNIE MORSE Study Date: 04/02/2017 09:14 AM BP: 158/71 mmHg * Patient Location: [facility]\\S\\78\\S\\2 HR: 65 * : 1955 (M/d/yyyy) Gender: Female Height: 65 in * Age: 61 yrs Ethnicity: [place] Weight: 266 lb * Ordering Physician: Venkat Toro * Referring Physician: Stephan Simon (MEDICAL) * Performed By: Shantell Lubin * * Reason For Study: CHEST PAIN * BSA: 2.2 m2 * -- Conclusions -- * There is moderate concentric left ventricular hypertrophy. * Left ventricular systolic function is normal. * Ejection Fraction = 65-70%. * No significant valvular pathology. Procedure Details * A complete two-dimensional transthoracic echocardiogram was performed (2D, M-mode, Doppler and color flow Doppler). * There were technical limitations due to patient'sbody habitus * A contrast injection of Definity was performed to improve assessment of LV function. * Contrast was injected into an intravenous site in the left arm. * One vial of Definity ultrasound contrast was diluted in normal saline to a total volume of 10 ml. A total of '2' ml of solution was administered during imaging. * Lot # [id number] of Definity utilized for procedure. * Expiration date 03/08. * The attending nurse who injected the contrast agent was CASSIDY ACKERMAN RN. Left Ventricle * The left ventricle is normal in size. * There is moderate concentric left ventricular hypertrophy. * Ejection Fraction = 65-70%. * Left ventricular systolic function is normal. * The left ventricular wall motion is normal. Right Ventricle * The right ventricle is normal size. * The right ventricular systolic function is normal. Atria * The left atrial size is normal. * Right atrial size is normal. * The interatrial septum is intact with no evidence for an atrial septal defect. Mitral Valve * The mitral valve anatomy is normal. * Significant mitral regurgitation is absent. Tricuspid Valve * The tricuspid valve is normal in structure and function. Aortic Valve * The aortic valve is normal in structure and function. Pulmonic Valve * The pulmonic valve is not well visualized. * There is no significant pulmonary regurgitation. Great Vessels * The aortic root and proximal ascending aorta are normal sized. Pericardium/Pleural * There is no pericardial effusion. Consultations: AUTOMOTIVE TIRE TESTING SUPERVISOR DR. RAMSEY Pending Studies/Follow-Up: CLONIDINE ADDED FOR UNCONTROLLED HYPERTENSION; CONSIDER OUTPATIENT STRESS TEST; PLEASE REFER TO HOSPITAL COURSE BELOW FOR FURTHER DETAILS. Medication Reconciliation New Medications: Clonidine HCl (Clonidine HCl) 0.1 Mg Tab 1 TAB PO BID for 30 Days, #60 TABS 2 Refills Continued Medications: Amlodipine Besylate (Amlodipine Besylate) 10 Mg Tab 10 MG PO QAM Buspirone HCl (Buspirone HCl) 10 Mg Tab 10 MG PO BID, #60 Cetirizine (Zyrtec) 10 Mg Tab 10 MG PO DAILY PRN for PRN, TAB Dorzolamide Hcl (Trusopt Oph) 2 % [place] 1 DROP OPB BID, #30 Esomeprazole Magnesium (Nexium) 40 Mg Capcr 40 MG PO DAILY, CAP Hydrochlorothiazide (Hydrochlorothiazide) 25 Mg Tab 25 MG PO DAILY, #30 Linaclotide (Linzess) 145 Mcg Cap 1 CAP PO HS Losartan Potassium (Cozaar) 100 Mg Tab 100 MG PO QAM, TAB Timolol Maleate (Timolol 0.5% Oph Soln 15 Ml) 15 Ml Soln 1 DROP OPB BID Vortioxetine HBr (Trintellix) 20 Mg Tab 10 MG PO DAILY, #30 [Proair] () 2 PUFF INH PRN UD Discontinued Medications: Duloxetine HCl (Duloxetine HCl) 60 Mg Cap 30 MG PO HS Admission Information HPI (per Admitting provider): 61 year old female with history of Morbid Obesity, HTN, HLD, History of Smoking presenting with recurrence chest discomfort x 1-2 weeks. Patient follows with for Primary Care. Patient states she has been having intermittent chest discomfort- "tightness", central, non radiating, unrelated to exertion, associated with sweating and feeling warm. Episodes are relieved with rest. Around 11 today, patient was driving when she started to have the chest discomfort again. Upon coming home, the chest tightness did not resolve prompting consult to the ER. Patient was noted to be hypertensive at the ER. EKG no signs of acute ischemia, Cardiac markers x1 negative CT chest no PE. On my exam, patient's BP was 176/100. She states that the chest tightness has resolved. No dyspnea, dizziness, nausea, diaphoresis. Reports posterior cervical pain which is chronic, relieved by Alleve that she has been taking for years. Physical Exam (per Admitting): General Appearance: WD/WN, no apparent distress Head: normocephalic, atraumatic Eyes: normal inspection, EOMI, sclerae normal ENT: normal ENT inspection, hearing grossly normal, pharynx normal Neck: supple, no adenopathy, thyroid normal, no JVD, trachea midline Respiratory/Chest: chest non-tender, lungs clear, normal breath sounds, no respiratory distress, no accessory muscle use Cardiovascular: regular rate, rhythm, no edema, no JVD, no murmur, normal peripheral pulses Abdomen/GI: normal bowel sounds, non tender, soft Back: normal inspection, no CVA tenderness Extremities/Musculoskelatal: normal inspection, no calf tenderness, no pedal edema Neurologic/Psych: financial services representative II-XII nml as tested, no motor/sensory deficits, alert , normal mood/affect, normal reflexes, oriented x 3 Skin: normal color, warm/dry, no rash Lymphatic: no adenopathy Hospital Course 61 year old female with history of Morbid Obesity, HTN, HLD, History of Smoking presenting with recurrence chest discomfort x 1-2 weeks. CHEST PAIN, ACS RULED OUT FROM UNCONTROLLED HYPERTENSION? FROM MUSCULOSKELETAL PAIN? - risk factors: history of smoking, family history, hypertension - BP systolic 190s on admission - serial cardiac markers: negative ekg: sinus bradycardia with 1st degree av block echo: * There is moderate concentric left ventricular hypertrophy. * Left ventricular systolic function is normal. * Ejection Fraction = 65-70%. * No significant valvular pathology. - given Aspirin and Nitropaste continued on usual Losartan 100mg, Amlodipine 10mg, HCTZ 25mg BP improved to 117/73 - evaluated by Dr. Ramsey, Talent Consultant chest pain atypical, likely musculoskeletal etiology - discharge plan: add Clonidine 0.1mg po BID continue usual Losartan, Amlodipine, HCTZ monitor BP on ff up with PCP outpatient stress testing ELEVATED D DIMER - just had a knee injection recently - CT chest negative for PE - Doppler US of the legs: no DVT HYPERTENSION - management as noted above DYSLIPIDEMIA - ff up as outpatient HISTORY OF DEPRESSION stable continue Trintellix CHRONIC CERVICALGIA - continue usual pain medication Disposition d/c home ff up with PCP in 1 week Total time spent on discharge = 30 minutes This includes examination of the patient, discharge planning, medication reconciliation, and communication with other providers. Discharge Instructions Discharge Instructions Date of Service April 02, 2017. Admission Reason for Admission: Chest Pain Discharge Discharge Diagnosis / Problem: CHEST PAIN Discharge Goals Goal(s): Diagnostic testing, Therapeutic intervention Activity Recommendations Activity Limitations: as noted below (NO HEAVY EXERTION UNTIL RE-EVALUATED BY PRIMARY CARE PHYSICIAN) Lifting Limitations: until after follow-up appointment Exercise/Sports Limitations: until after follow-up appointment . Instructions / Follow-Up Instructions / Follow-Up PLEASE REVIEW YOUR NEW MEDICATION AND FOLLOW INSTRUCTIONS CAREFULLY. RETURN TO ER IMMEDIATELY IF WITH RECURRENCE OF SYMPTOMS. CALL PRIMARY CARE PHYSICIAN OR RETURN TO ER IMMEDIATELY IF YOU HAVE WEAKNESS, DIZZINESS, HEADACHE. OBSERVE LOW SALT DIET (LESS THAN 2G OF SODIUM A DAY OR LESS THAN 1 TEASPOON OF SALT A DAY). FOLLOW UP WITH PRIMARY CARE PHYSICIAN IN 1 WEEK (SCHEDULING DEPARTMENT WILL CALL YOU REGARDING THE APPOINTMENT DATE). Current Hospital Diet Patient's current hospital diet: AHA Diet (Heart Healthy) Discharge Diet Recommended Diet: AHA Diet (Heart Healthy) Procedures Procedures Performed: ECHOCARDIOGRAM Pending Studies Studies pending at discharge: yes List of pending studies: STRESS TEST Medical Emergencies . Who to Call and When: Medical Emergencies: If at any time you feel your situation is an emergency, please call 911 immediately. . Non-Emergent Contact Non-Emergency issues call your: Primary Care Provider Call Non-Emergent contact if: you have a fever, your pain is not controlled, you have any medication questions . . "Provider Documentation" section prepared by Venkat Toro. . VTE Core Measure Inpt VTE Proph given/why not?: Enoxaparin (Lovenox)SQ
--- NOTE | 2017-04-02 18:13 | DIAGNOSTIC IMAGING REPORT ---
ULTRASOUND BILATERAL LOWER EXTREMITY VENOUS CLINICAL HISTORY: Elevated d-dimer. Atypical chest pain. Clinical concern for deep venous thrombosis. COMPARISON STUDY: Right lower extremity venous ultrasound dated 06/08/2014. TECHNIQUE: Real-time, grayscale, and color Doppler sonography of the deep veins of the right and left lower extremity was performed from the inguinal crease to the calf. Compression and augmentation were utilized. FINDINGS: There is no sonographic evidence of deep venous thrombosis identified in the right or left lower extremity. The common femoral, superficial femoral, and popliteal veins are patent and normally compressible bilaterally. The greater saphenous vein and the profunda femoris vein at the junction with the common femoral vein are clear in both legs. The visualized calf veins are patent bilaterally. IMPRESSION: There is no sonographic evidence of deep venous thrombosis identified in the right or left lower extremity. Electronically signed by: Jim Rodriguez M.D. 04/02/2017 6:11 PM Dictated Date/Time: 04/02/2017 6:11 PM
[2017-04-26] MEDS ORDERED: HYT/2 PO (23:51)
[2017-04-26] MEDS ORDERED: PANT40TA2 PO (23:51)
[2017-04-26] MEDS ORDERED: MELO15TA4 PO (23:52)
[2017-04-27] MEDS ORDERED: FURO40TA3 PO (00:08)
== END 2017-04-02 18:55 | disposition home or self-care (01) ==
LOC: ENRESERVTM → ENRESERVDT → C.EDB 12:51 → C.MED 18:00
PROVIDERS: ADMIT Internal Medicine; ATTEND Internal Medicine
DX: R07.89 Other chest pain (principal); I10 Essential (primary) hypertension; E78.00 Pure hypercholesterolemia, unspecified; F32.9 Major depressive disorder, single episode, unspecified; E78.5 Hyperlipidemia, unspecified; K21.9 Gastro-esophageal reflux disease without esophagitis; E66.01 Morbid (severe) obesity due to excess calories; Z87.891 Personal history of nicotine dependence; Z88.1 Allergy status to other antibiotic agents; Z98.890 Other specified postprocedural states; Z88.0 Allergy status to penicillin; Z88.2 Allergy status to sulfonamides; Z90.49 Acquired absence of other specified parts of digestive tract; Z90.710 Acquired absence of both cervix and uterus; Z82.49 Family history of ischemic heart disease and other diseases of the circulatory system; Z80.0 Family history of malignant neoplasm of digestive organs; Z83.49 Family history of other endocrine, nutritional and metabolic diseases

== ENCOUNTER 2017-10-05 19:33 | Emergency (ER) | payer OTHER ==
[~2017-10-05] VITALS: Ht 165.1 cm; Wt 120.1 kg
[~2017-10-05 19:33] MED LIST changes: +BSP/10 PO; -CALC500C70 PO; -CETI10TA84 PO; +CTP1X PO; +DORZ2SOL17 OPB; +FURO40TA3 PO; +HYDR25TA5 PO; +HYT/2 PO; +MELO15TA4 PO; +NRV/10 PO; +NXM/40 PO; +PANT40TA2 PO; -SUCR5SUS PO; +TMPOPS15 OPB; +VORT1TAB3 PO
[2017-10-05 19:45] VITALS: TEMP 36.7; Ht 165.1 cm; Wt 120.1 kg
--- NOTE | 2017-10-05 20:28 | EMERGENCY ROOM VISIT NOTE ---
History First contact with patient: 19:56 Chief Complaint: ABDOMINAL PAIN Stated Complaint: L SIDE PAIN Nursing Triage Summary: Patient had bronchitis last week and was treated with Zpack, now c/o left flank / abdominal pain radiating to back since Tuesday. States she has been having diarrhea with blood in her stool. Diarrhea started when she started Zpack. History of Present Illness The patient is a 61 year old female with morbid obesity, HTN, supposed UC, diverticulosis, and extensive abdominal surgical history who presents to the Emergency Room with complaints of 1 week of diarrhea with some melena. She reports having taken Z-pac last week for bronchitis. She then started having excessive diarrhea. She reports that her stools have been foul smelling but that the number of episodes have reduced. This morning she had a little bright blood and the stools are starting to form. She also reports LLQ pain that radiates to the flank. She denies urinary symptoms. She denies chest pain, shortness of breath. Review of Systems See HPI for pertinent positives & negatives. A total of 10 systems reviewed and were otherwise negative. Past Medical/Surgical History Medical Problems: (1) Chest pain (2) Depression (3) Esophageal Reflux (4) Gastric ulcer (5) Glaucoma (6) Hiatal hernia (7) Hypercholesteremia (8) Hypertension (9) IBS (irritable bowel syndrome) (10) Right leg pain (11) Right leg pain Surgical Problems: (1) History of esophagogastroduodenoscopy (2) S/P cholecystectomy (3) S/P hysterectomy (4) S/P Matt fundoplication (without gastrostomy tube) procedure (5) S/P ventral herniorrhaphy Family History FH: coronary artery disease FATHER FH: liver cancer MOTHER Systemic lupus erythematosus BROTHER Social History Smoking Status: Never Smoker Alcohol Use: none Drug Use: none Marital Status: Housing Status: lives with family Occupation Status: employed Current/Historical Medications Scheduled Amlodipine Besylate (Amlodipine Besylate), 10 MG PO QAM Clonidine HCl (Clonidine HCl), 1 TAB PO BID Dorzolamide Hcl (Trusopt Oph), 1 DROP OPB BID Esomeprazole Magnesium (Nexium), 40 MG PO DAILY Hydrochlorothiazide (Hydrochlorothiazide), 25 MG PO DAILY Linaclotide (Linzess), 145 MCG PO 2XWK Losartan Potassium (Cozaar), 100 MG PO QAM Pantoprazole (Pantoprazole Sodium), 40 MG PO BID Sucralfate (Sucralfate), 1 TAB PO DAILY Timolol Maleate (Timolol 0.5% Oph Soln 15 Ml), 1 DROP OPB BID Vilazodone Hcl (Viibryd), 1 TAB PO HS Scheduled PRN Buspirone HCl (Buspirone HCl), 10 MG PO BID PRN for prn Furosemide (Lasix), 40 MG PO DAILY PRN for water retention Meloxicam (Meloxicam), 15 MG PO DAILY PRN for prn Physical Exam Vital Signs Date Time Temp Pulse Resp B/P (MAP) Pulse Ox O2 Delivery O2 Flow Rate FiO2 10/05/17 23:11 66 15 176/80 94 10/05/17 21:50 66 16 180/83 95 Room Air 10/05/17 19:45 36.7 64 16 160/92 95 Room Air Physical Exam GENERAL: Patient is in no acute distress. HEENT: normocephalic atraumatic, mucous membranes moist, no nasal congestion, no scleral icterus. NECK: No stridor, no adenopathy, trachea is midline. LUNGS: Clear to auscultation bilaterally, no wheeze, no rhonchi, breath sounds equal. HEART: Without murmurs gallops or rubs, regular rate and rhythm. ABDOMEN: Soft, LLQ tenderness, bowel sounds positive, no hernias, no peritonitis. EXTREMITIES: No cyanosis or edema, full range of motion of all the joints NEUROLOGIC: Oriented x 3, no acute motor or sensory deficits, no focal weakness. SKIN: No rash, no jaundice, no diaphoresis. Medical Decision & Procedures Laboratory Results 10/05/17 20:40 Red Blood Count 4.68, Mean Corpuscular Volume 88.7, Mean Corpuscular Hemoglobin 30.1, Mean Corpuscular Hemoglobin Concent 34.0, Mean Platelet Volume 10.3, Neutrophils (%) (Auto) 52.8, Lymphocytes (%) (Auto) 36.1, Monocytes (%) (Auto) 7.3, Eosinophils (%) (Auto) 3.2, Basophils (%) (Auto) 0.3, Neutrophils # (Auto) 3.48, Lymphocytes # (Auto) 2.38, Monocytes # (Auto) 0.48, Eosinophils # (Auto) 0.21, Basophils # (Auto) 0.02 10/05/17 20:40 Test 10/05/17 20:40 10/05/17 20:47 10/05/17 21:39 White Blood Count 6.59 K/uL (4.8-10.8) Red Blood Count 4.68 M/uL (4.2-5.4) Hemoglobin 14.1 g/dL (12.0-16.0) Hematocrit 41.5 % (37-47) Mean Corpuscular Volume 88.7 fL (80-100) Mean Corpuscular Hemoglobin 30.1 pg (25-34) Mean Corpuscular Hemoglobin Concent 34.0 g/dl (32-36) Platelet Count 206 K/uL (130-400) Mean Platelet Volume 10.3 fL (7.4-10.4) Neutrophils (%) (Auto) 52.8 % Lymphocytes (%) (Auto) 36.1 % Monocytes (%) (Auto) 7.3 % Eosinophils (%) (Auto) 3.2 % Basophils (%) (Auto) 0.3 % Neutrophils # (Auto) 3.48 K/uL (1.4-6.5) Lymphocytes # (Auto) 2.38 K/uL (1.2-3.4) Monocytes # (Auto) 0.48 K/uL (0.11-0.59) Eosinophils # (Auto) 0.21 K/uL (0-0.5) Basophils # (Auto) 0.02 K/uL (0-0.2) RDW Standard Deviation 40.6 fL (36.4-46.3) RDW Coefficient of Variation 12.7 % (11.5-14.5) Immature Granulocyte % (Auto) 0.3 % Immature Granulocyte # (Auto) 0.02 K/uL (0.00-0.02) Prothrombin Time 10.7 SECONDS (9.0-12.0) Prothromb Time International Ratio 1.0 (0.9-1.1) Activated Partial Thromboplast Time 23.8 SECONDS (21.0-31.0) Partial Thromboplastin Ratio 0.9 Anion Gap 9.0 mmol/L (3-11) Est Creatinine Clear Calc Drug Dose 112.8 ml/min Estimated GFR () 109.4 Estimated GFR (Non- 94.4 BUN/Creatinine Ratio 13.8 (10-20) Calcium Level 8.9 mg/dl (8.5-10.1) Magnesium Level 2.1 mg/dl (1.8-2.4) Total Bilirubin 1.0 mg/dl (0.2-1) Direct Bilirubin 0.2 mg/dl (0-0.2) Aspartate Amino Transf (AST/SGOT) 41 U/L (15-37) Alanine Aminotransferase (ALT/SGPT) 51 U/L (12-78) Alkaline Phosphatase 68 U/L (45-117) Total Creatine Kinase 105 U/L (26-192) Creatine Kinase MB 0.8 ng/ml (0.5-3.6) Creatine Kinase MB Ratio 0.8 (0-3.0) Total Protein 8.0 gm/dl (6.4-8.2) Albumin 4.2 gm/dl (3.4-5.0) Globulin 3.8 gm/dl (2.5-4.0) Albumin/Globulin Ratio 1.1 (0.9-2) Lipase 94 U/L (73-393) Bedside Troponin I < 0.030 ng/ml (0-0.045) Urine Color DK YELLOW Urine Appearance CLOUDY (CLEAR) Urine pH 5.0 (4.5-7.5) Urine Specific [place] 1.022 (1.000-1.030) Urine Protein NEG (NEG) Urine Glucose (UA) NEG (NEG) Urine Ketones NEG (NEG) Urine Occult Blood NEG (NEG) Urine Nitrite NEG (NEG) Urine Bilirubin NEG (NEG) Urine Urobilinogen NEG (NEG) Urine Leukocyte Esterase LARGE (NEG) Urine WBC (Auto) >30 /hpf (0-5) Urine RBC (Auto) 0-4 /hpf (0-4) Urine Hyaline Casts (Auto) 10-30 /lpf (0-5) Urine Epithelial Cells (Auto) >30 /lpf (0-5) Urine Bacteria (Auto) NEG (NEG) Medications Administered Medications (Trade) Dose Ordered Sig/Temitope Route Start Time Stop Time Status Last Admin Dose Admin Potassium Chloride (Klor-Con M10) 20 meq STK-MED ONCE .ROUTE 10/05/17 22:31 10/05/17 22:32 DC 11/15/17 22:33 20 MEQ ED Course 1999 Patient was evaluated in B2 [address] abd/pelvis ordered. 2114 Patient feels a little better, no worsening 2029 Patient and family were advised of normal findings. Discharge plans discussed. Medical Decision This is a 61 y/o F who presents with diarrhea and LLQ pain. Etiologies considered such as appendicitis, diverticulitis, C.diff, PUD, biliary pathology , UTI, pancreatitis, obstruction, mesenteric ischemia, aortic pathology, infections, inflammatory bowel disease, renal colic, as well as others were entertained. CBC, BMP and U/A were largely unremarkable. She did have mild hypokalemia that was replaced orally. CT was unremarkable for acute pathologies. She was unable to provide a stool sample to check for C.Diff. However, given resolution of her diarrhea, C.Diff is less likely. Her symptoms were likely from viral gastroenteritis. She had already improved in terms of her diarrhea prior to arrival to the ED. The patient was advised to try a soft diet and slowly advance as tolerated. She was recommended to follow up with her PCP in 2-3 days for a recheck of her condition. She understood and agrees with the plan. Impression Primary Impression: Acute gastroenteritis Departure Information Dispostion Home / Self-Care Condition FAIR Referrals Stephan Simon M.D. (MEDICAL) (PCP) Patient Instructions My [facility]
[2017-10-05] MEDS ORDERED: OPTIRAY 320 IV PRN (20:30)
--- NOTE | 2017-10-05 20:33 | EMERGENCY ROOM VISIT NOTE ---
ED Visit Note First contact with patient: 19:56 HPI: ?of h/o UC and diverticulitis. Here with LLQ abd pain, diarrhea, and ? black stool. PE: AFVSS, NAD NC/AT RRR, no murmurs CTAB Abd soft with mild LLQ ttp. Ext: no edema, erythema Neuro: grossly intact Plan: Rectal exam with brown stool, guaiac negative. CT abd pel negative for acute findings. UA dirty, patient without urinary sx. Will wait for cx. Plan for pcp f/u. I reviewed the patient's past medical history, medications, and visit nursing notes. I discussed the case with the resident physician, examined the patient, and agree with the findings and plan as documented in the residents note unless otherwise clarified here by me.
[2017-10-05] MEDS ORDERED: FURO40TA3 PO (20:43)
[2017-10-05] MEDS ORDERED: SUCR1TAB PO (20:51)
[2017-10-05 20:57] LABS: BASO % 0.3 %; BASO ABS # 0.02 K/uL (0-0.2); COMPLETE YES; EOS % 3.2 %; HEMATOCRIT 41.5 % (37-47); IG% 0.3 %; LYMPH % 36.1 %; LYMPH ABS # 2.38 K/uL (1.2-3.4); MEAN CELL VOLUME 88.7 fL (80-100); MEAN CORPUSCULAR HEMOGLOBIN 30.1 pg (25-34); MEAN PLATELET VOLUME 10.3 fL (7.4-10.4); MONO % 7.3 %; NEUT % 52.8 %; PLATELET COUNT 206 K/uL (130-400); RED BLOOD COUNT 4.68 M/uL (4.2-5.4); WHITE BLOOD COUNT 6.59 K/uL (4.8-10.8)
[2017-10-05] MEDS ORDERED: VILA1TAB PO (20:57)
[2017-10-05 21:14] LABS: PARTIAL THROMBOPLASTIN RATIO 0.9; PROTHROMBIN TIME (PATIENT) 10.7 SECONDS (9.0-12.0)
[2017-10-05 21:16] LABS: BUN/CREATININE RATIO 13.8 (10-20); CALCIUM 8.9 mg/dl (8.5-10.1); CREATININE 0.68 mg/dl (0.60-1.20); MAGNESIUM 2.1 mg/dl (1.8-2.4); POTASSIUM 3.3 mmol/L (3.5-5.1)
[2017-10-05 21:19] LABS: ALB/GLOB RATIO 1.1 (0.9-2); CKMB/CK RATIO 0.8 (0-3.0)
[2017-10-05 22:11] LABS: URINE APPEARANCE CLOUDY (CLEAR); URINE BILIRUBIN NEG (NEG); URINE COLOR DK YELLOW; URINE EPITHELIAL CELL AUTO >30 /lpf (0-5); URINE NITRITE NEG (NEG); URINE SPECIFIC GRAVITY 1.022 (1.000-1.030); UROBILINOGEN NEG (NEG); ZZUR CULT IF INDIC CLEAN CATCH YES
[2017-10-05 22:13] LABS: MANUAL MICROSCOPIC REQUIRED? NO; REVIEW REQ? NO
[2017-10-05] MEDS ORDERED: POTASSIUM CHLORIDE 20 MEQ TABCR PO STA (22:21)
[2017-10-05] MEDS ORDERED: POTASSIUM CHLORIDE 10 MEQ TABCR ONE (22:31)
--- NOTE | 2017-10-05 22:47 | DIAGNOSTIC IMAGING REPORT ---
ABDOMEN AND PELVIS CT WITH IV CONTRAST CT DOSE: 1609.61 mGy.cm HISTORY: Acute left lower quadrant abdominal pain with diarrhea llq pain, diarrhea TECHNIQUE: Multiaxial CT images of the abdomen and pelvis were performed following the use of intravenous contrast. A dose lowering technique was utilized adhering to the principles of ALARA. COMPARISON STUDY: CT abdomen and pelvis 09/09/2014. FINDINGS: There is mild bibasilar atelectasis. No pneumoperitoneum identified. No pneumatosis. Imaged inferior cardiac chambers are unremarkable. Hepatomegaly with hepatic steatosis redemonstrated. Prior cholecystectomy. Spleen is mildly enlarged, 14 cm. Pancreas and adrenal glands are unremarkable. The kidneys, ureters and urinary bladder are unremarkable. Prior hysterectomy. The aorta is normal in course and caliber with mild/moderate plaquing. There is no bulky adenopathy. No bowel obstruction. No focal bowel wall thickening. A few scattered colonic diverticula are present without diverticulitis. The appendix is not seen and is likely surgically absent. Prior ventral abdominal wall herniorrhaphy. Recurrent hernia at site of prior surgery is noted with mesenteric fat interposed between the hernia mesh, unchanged from comparison. Patient obesity noted. Bones appear intact. There are degenerative changes of the spine and pelvis. IMPRESSION: 1. Mild sigmoid colon diverticulosis without evidence of acute diverticulitis. 2. Hepatomegaly, hepatic steatosis and splenomegaly redemonstrated. 3. Prior cholecystectomy, appendectomy and ventral abdominal wall herniorrhaphy. Recurrent abdominal wall fat-containing hernia again seen, unchanged. Electronically signed by: Joshua Garber M.D. 10/05/2017 10:46 PM Dictated Date/Time: 10/05/2017 10:41 PM
[2017-10-05 23:11] VITALS: BP 176/80; PULSE 66; O2SAT 94
== END 2017-10-05 23:13 | disposition home or self-care (01) ==
LOC: C.EDB 19:34
DX: K52.9 Noninfective gastroenteritis and colitis, unspecified (principal); E66.01 Morbid (severe) obesity due to excess calories; I10 Essential (primary) hypertension; K57.90 Diverticulosis of intestine, part unspecified, without perforation or abscess without bleeding; F32.9 Major depressive disorder, single episode, unspecified; K21.9 Gastro-esophageal reflux disease without esophagitis; H40.9 Unspecified glaucoma; K58.9 Irritable bowel syndrome, unspecified; Z90.49 Acquired absence of other specified parts of digestive tract; Z90.710 Acquired absence of both cervix and uterus; Z87.11 Personal history of peptic ulcer disease; Z82.49 Family history of ischemic heart disease and other diseases of the circulatory system; Z80.0 Family history of malignant neoplasm of digestive organs; Z83.49 Family history of other endocrine, nutritional and metabolic diseases

== ENCOUNTER 2019-11-26 17:39 | Inpatient (IN) ==
[2019-11-26] MEDS ORDERED: ALBUT/IPRATROP 3MG/0.5MG NEB 3 ML VIAL NEB STA (18:30)
[2019-11-26 19:00] LABS: Basophils # (auto) 0.02 K/uL (0-0.2); Basophils % (auto) 0.1 %; Eosinophils % (auto) 0.6 %; Hematocrit (blood only) 41.3 % (37-47); Hemoglobin 14.1 g/dL (12.0-16.0); Immature Granulocytes # (auto) 0.03 K/uL (0.00-0.02); Immature Granulocytes % (auto) 0.2 %; Lymphocytes # (auto) 1.46 K/uL (1.2-3.4); Lymphocytes % (auto) 8.3 %; Mean Corpuscular Hgb Conc 34.1 g/dL (32-36); Mean Corpuscular Volume 93.9 fL (80-100); Mean Platelet Volume 10.2 fL (7.4-10.4); Monocytes # (auto) 0.93 K/uL (0.11-0.59); Monocytes % (auto) 5.3 %; Neutrophils # (auto) 14.99 K/uL (1.4-6.5); Neutrophils % (auto) 85.5 %; Platelet Count 222 K/uL (130-400); RDW Coefficient of Variation 12.6 % (11.5-14.5); RDW Standard Deviation 42.8 fL (36.4-46.3); White Blood Count 17.53 K/uL (4.8-10.8)
[2019-11-26 19:09] LABS: BUN Creatinine Ratio 19.4 (10-20); Blood Urea Nitrogen 14 mg/dl (7-18); Calcium 8.9 mg/dl (8.5-10.1); Carbon Dioxide 27 mmol/L (21-32); Chloride 104 mmol/L (98-107); Creatinine Clr Calc Pharmacy 106.2 ml/min; Est GFR (African American) 106.1; Est GFR (Non-African American) 91.6; Glucose 130 mg/dl (70-99); Potassium 3.8 mmol/L (3.5-5.1); Sodium 137 mmol/L (136-145)
[2019-11-26] MEDS ORDERED: OPTIRAY 320 125ml IV PRN (19:11)
[2019-11-26 19:14] LABS: NT Pro B Type Natriuretic Pept 100 pg/ml (0-900); Troponin I < 0.015 ng/ml (0-0.045)
--- NOTE | 2019-11-26 19:27 | XRay Report ---
XR chest 1V portable CLINICAL HISTORY: 64 years-old Female presenting with cough, sob, s/p port placement. TECHNIQUE: Portable upright AP view of the chest was obtained. COMPARISON: 11/26/2019 at 12:41 PM. FINDINGS: Right subclavian Mediport terminates in the lower SVC. Cardiac silhouette normal in size. Patchy bila teral mid to basilar predominant pulmonary opacities. Mild prominence of pulmonary vasculature. These findings are new from prior. No large effusion or pneumothorax. Degenerative changes of the thoracic spine. Upper abdomen normal. IMPRESSION: 1. Interval development of pulmonary vascular congestion and suspected mild pulmonary edema. An infe ctious etiology would be unexpected to arise in such a short time frame. Findings are not overly conv incing for aspiration. ACT 112: Negative or not required by law. Electronically signed by: Johnson Muñoz M.D. 11/26/2019 7:26 PM
--- NOTE | 2019-11-26 19:34 | CT Scan Report ---
CT angio chest PE protocol CLINICAL HISTORY: 64 years-old Female presenting with cough, shortness of breath, clinical concern fo r pulmonary embolism. TECHNIQUE: Multidetector CT angiography of the chest was performed after administration of intravenou s contrast. 3-D volumetric and/or maximum intensity projection (MIP) images were subsequently reconst ructed for review. IV contrast: 120 mL of Optiray 320. One or more dose lowering techniques were used consistent with the principles of ALARA (as low as reasonably achievable), including automatic expos ure control, mA or kV adjustment to individual patient size, and/or use of iterative reconstruction. COMPARISON: 04/01/2017. CT DOSE (mGy.cm): The estimated cumulative dose is 926.13 mGy.cm. FINDINGS: System Development Engineer topogram: Unremarkable. Pulmonary vasculature: The study is suboptimal for the assessment of the pulmonary vascular tree secondary to timing of the contrast bolus and respiratory motion artifact. Allowing for limited image quality, no central fillin g defect to suggest pulmonary embolus. Main pulmonary artery is not enlarged. No flattening of the in terventricular septum. No intracardiac filling defect. No reflux of contrast into the hepatic veins. Remaining chest: Soft tissues: Normal thyroid. Right subclavian Mediport with associated soft tissue gas along the upp er right breast, likely indicating recent placement. Catheter terminates in the SVC. No axillary, sup raclavicular, mediastinal, or hilar lymphadenopathy. Normal aorta. Top normal heart size. Coronary ar indio calcification. Small right and trace left pleural effusions. Upper abdomen normal. Lungs and airways: No pneumothorax. Significant bronchial wall thickening diffusely though most sever e in the lower lobes. Pulmonary arteries enlarged relative to adjacent bronchi. Severe smooth interlo bular septal thickening diffusely. Patchy groundglass opacity with a peribronchial vascular and basil ar predominance. Overall evaluation of lung parenchyma is extremely limited by respiratory motion art ifact. Musculoskeletal: Degenerative changes of the spine. Degenerative changes of the glenohumeral joints, right greater than left. IMPRESSION: 1. Allowing for suboptimal image quality, no evidence of pulmonary embolus. 2. Severe congestive changes and early/mild pulmonary edema. 3. Small right and trace left pleural effusions. ACT 112: Negative or not required by law. Electronically signed by: Johnson Muñoz M.D. 11/26/2019 7:33 PM
[2019-11-26] MEDS ORDERED: POTASSIUM CHLORIDE 20 MEQ TABCR PO STA (19:48)
[2019-11-26] MEDS ORDERED: FUROSEMIDE 40 MG/4 ML VIAL IV STA (19:48)
[2019-11-26] MEDS ORDERED: ACETAMINOPHEN 325 MG TAB PO PRN (22:30)
[2019-11-26] MEDS: MONTELUKAST SODIUM 10 MG TABLET PO SCH (23:07)
--- NOTE | 2019-11-26 23:49 | History & Physical Report ---
Date of Service November 26, 2019 Assessment & Plan (1) Pulmonary edema: -Admit to [facility] with telemetry -Patient presenting from home with reports of worsening cough and shortness of breath after port placement today -In the ED, CXR and CT chest suggestive of pulmonary edema -Does not appear that patient received a large volume of IVF during procedure today however she did receive propofol which has a listed side effect of pulmonary edema -Aspiration considered however patient had marked improvement in symptoms after receiving IV Lasix in ED; lung sounds currently clear, saturating well on room air -WBC 17 K, possibly stress response; recheck CBC in a.m. -Hold on further diuresis and antibiotics for now -Echocardiogram 11/22/2019 EF 60 to 64%, grade 1 diastolic dysfunction; given acuity of onset of pulmonary edema, will update echo -Cardiology consult who was notified by the ED (2) Asthma: -No wheezing on exam, saturating well on room air -Continue home inhalers (3) Breast cancer: -Recent diagnosis, has not started chemotherapy yet -Follows with Dr. Christiansen (4) Hypertension: -BP controlled, continue amlodipine, hydralazine, losartan (5) Hyperlipidemia: -Continue rosuvastatin and Zetia (6) Fibromyalgia: (7) Anxiety: -Continue home medications (8) DVT prophylaxis: -SCDs due to invasive procedure today History of Present Illness Chief Complaint: Shortness of breath, cough Primary Care Provider: Christine Massey, 64-year-old female who presents the ED for evaluation of shortness of breath and cough. Patient had a port placed today as an outpatient procedure in preparation for beginning chemotherapy for breast cancer. Patient reports that shortly after the procedure, she developed cough and shortness of breath. When she arrived home, she was able to lie down for a short nap however whenever she woke up she had severe coughing with wheezing. She reports feeling short of breath at rest. Denies sputum production. No chest pain. She denies lightheadedness, dizziness, diaphoresis, syncopal events. Reports she otherwise been feeling well recently. No other recent illnesses, fevers, chills. Denies abdominal pain, nausea, vomiting, diarrhea. No urinary symptoms. In the ED, patient was found to be hypoxic on room air at 89% which improved with 2 L of oxygen via nasal cannula. CXR and CT chest are suggestive of pulmonary edema. Patient received nebulizer treatment and 40 mg IV Lasix with marked improvement in her symptoms. Allergies Allergy/AdvReac Type Severity Reaction Status Date / Time amoxicillin Allergy Severe AUGMENTIN-ITCH,SWELLING,DIFFICULTY Verified 11/26/19 09:25 BREATHING clavulanic acid Allergy Severe AUGMENTIN-ITCH,SWELLING,DIFFICULTY Verified 11/26/19 09:25 BREATHING Penicillins Allergy Severe AUGMENTIN-ITCH,SWELLING,DIFFICULTY Verified 11/26/19 09:25 BREATHING lisinopril Allergy Mild COUGH/Swell Verified 11/26/19 09:25 ing Sulfa (Sulfonamide Allergy Mild RASH Verified 11/26/19 09:25 Antibiotics) Home Medications Home Medications Medication Instructions Recorded Confirmed Type Combigan 1 drp OPHTHALMIC (EYE) BID 08/15/18 11/26/19 History amlodipine 10 mg PO QAM 08/15/18 11/26/19 History losartan 100 mg PO QAM 08/15/18 11/26/19 History ofloxacin 1 drp OPHTHALMIC (EYE) BID 08/15/18 11/26/19 History pantoprazole [Protonix] 40 mg PO QAM PRN 08/15/18 11/26/19 History albuterol sulfate [ProAir HFA] 2 puff INHALATION QID PRN 07/18/19 11/26/19 History cholecalciferol (vitamin D3) 1,000 unit PO QPM 07/18/19 11/26/19 History [Vitamin D3] duloxetine 60 mg PO QAM 07/18/19 11/26/19 History fluticasone propionate [Flonase 2 spray INTRANASAL DAILY PRN 07/18/19 11/26/19 History Allergy Relief] furosemide 20 mg PO QAM PRN 07/18/19 11/26/19 History naproxen sodium 550 mg PO BID PRN 07/18/19 11/26/19 History sucralfate 1 g PO TIDM PRN 07/18/19 11/26/19 History Symbicort 2 puff INHALATION BID 11/23/19 11/26/19 History ezetimibe 10 mg PO DAILY 11/26/19 11/26/19 History hydralazine 50 mg PO BID 11/26/19 11/26/19 History montelukast 10 mg PO DAILY 11/26/19 11/26/19 History rosuvastatin 40 mg PO DAILY 11/26/19 11/26/19 History Past Med/Surg History Medical History Anxiety Asthma Breast cancer Carotid stenosis Chronic back pain Depression Fibromyalgia GI bleed hx (noted in [facility] records from 07/2018); no further details available Glaucoma Hyperlipidemia Hypertension Irritable bowel disease Morbid obesity Osteoarthritis Restrictive lung disease Rheumatoid arthritis SOB (shortness of breath) on exertion Stomach ulcer hx (noted in [facility] records from 07/2018); no further details available Vertigo BPPV Surgical History H/O exploratory laparotomy History of bilateral tubal ligation History of section X 1 History of colonoscopy History of dilatation and curettage History of esophagogastroduodenoscopy (EGD) 07/25/19 ([facility]) History of herniorrhaphy MULTIPLE History of nasal septoplasty History of repair of hiatal hernia lap History of repair of rotator cuff RIGHT History of tonsillectomy and adenoidectomy History of tooth extraction History of total abdominal hysterectomy and bilateral salpingo-oophorectomy Family History Father Diabetes Social History Preferred Language: Ghanaian Communication Ability: Effective Dental Office Assistant Required: No Beliefs That Will Affect Care: None Current Living Situation: Spouse Other Information That Helps Us Care for You: No Feels Safe at Home: Yes Safety Concerns: Feels Safe At This Time Smoking Status: Former smoker Second Hand Exposure: No ; Hx Alcohol Use: No Hx Substance Use: No Review of Systems Review of Systems: ROS per HPI, all other systems reviewed and negative Physical Exam Constitutional: WD/WN, vitals as above Eyes: PERRL, conjunctivae normal, anicteric sclerae ENMT: external ear and nose normal, oropharynx normal Respiratory: normal respiratory effort, lungs clear to auscultation Cardiovascular: Rate/Rhythm: regular rate and regular rhythm Vessels: normal peripheral pulses Extremities: no edema Chest (Breasts): Chest: + vascular access device or port (Right chest, dressing dry and intact, no surrounding erythema or drainage) Gastrointestinal (Abdomen): normal bowel sounds, soft, nontender, no hepatosplenomegaly Musculoskeletal: no cyanosis or clubbing, extremities motor strength 5/5 Skin: no rashes, warm and dry Neurologic: PERRL, EOMI, accommodation nl, no face palsy, no dysarthria Psychiatric: A+Ox3, euthymic affect Results & Data Vital Signs (Past 12 Hours) Vital Signs Temp Pulse Pulse Pulse Resp BP BP 11/26/19 22:20 36.4 C L 71 16 159/88 H 11/26/19 22:05 68 20 144/80 H 11/26/19 21:30 69 20 149/81 H 11/26/19 19:58 11/26/19 19:29 67 19 143/93 H 11/26/19 19:01 66 16 11/26/19 17:48 71 28 H 158/85 H Pulse Ox 11/26/19 22:20 92 11/26/19 22:05 92 11/26/19 21:30 92 11/26/19 19:58 89 L 11/26/19 19:29 92 11/26/19 19:01 91 11/26/19 17:48 92 Laboratory Results Short CBC 11/26/19 Range/Units 18:35 WBC 17.53 H (4.8-10.8) K/uL Hgb 14.1 (12.0-16.0) g/dL Hct 41.3 (37-47) % Plt Count 222 (130-400) K/uL BMP 11/26/19 18:35 Sodium 137 Potassium 3.8 Chloride 104 Carbon Dioxide 27 BUN 14 Creatinine 0.70 Glucose 130 H Calcium 8.9 Cardiac Enzymes 11/26/19 11/26/19 Range/Units 18:35 22:51 Troponin I < 0.015 < 0.015 (0-0.045) ng/ml Diagnostic Findings CHEST CTA IMPRESSION: 1. Allowing for suboptimal image quality, no evidence of pulmonary embolus. 2. Severe congestive changes and early/mild pulmonary edema. 3. Small right and trace left pleural effusions. CXR IMPRESSION: 1. Interval development of pulmonary vascular congestion and suspected mild pulmonary edema. An infectious etiology would be unexpected to arise in such a short time frame. Findings are not overly convincing for aspiration. Code Status & VTE Plan VTE Prophylaxis Plan VTE Prophylaxis will be ordered: Yes Supervising Physician Co-Signing Physician Notes Pt was seen and examined. Agreed with Lucrecia FACING END TRIMMER exam, assessment and plan. 64 y/o Female with PMH with PMH HTN, asthma, breast ca, dyslipidemia, Fibromyalgia present to the ER for worsening SOB. Pt had a port place today as an outpatient procedure to start chemo for breast ca. She said that while they were placing the port she started to cough. She said that when she went home she developed w orsening SOB. In the ED, patient was found to be hypoxic on room air at 89% which improved with 2 L of oxygen via nasal cannula. CXR showed interval development of pulmonary vascular congestion and suspected mild pulmonary edema. CTA chest showed no evidence of pulmonary embolus and severe congestive changes and early/mild pulmonary edema. Received IV lasix in the ER. Pt had an echo done few days ago. ER physician called cardio and recommended to repeat the echo. Will assess tomorrow for any additional lasix. Continue Neb treatment. Will consult cardiology. Continue monitor closely. MD Joshua (1) Pulmonary edema Chronicity: acute Qualified Code(s): J81.0 - Acute pulmonary edema
--- NOTE | 2019-11-27 02:31 | Emergency Department Note ---
Entered by Keely Montoya acting as a scribe for Minal Reddy DO History of Present Illness General Chief complaint: Cough Stated complaint: COUGH, S/P PORT INSERTION TODAY Time Seen by Provider: 11/26/19 17:58 Source: patient and family History of Present Illness Onset (ago): hour(s) (today after arriving home from post-op ) Location: chest (cough) Pain Consistency: + constant Maximum Pain Intensity: 9 Relieved By: + other (sitting upright) Associated symptoms: + denies other symptoms (rhinorrhea, stuffy nose, sore throat, numbness, tingling, and dizziness), + chest pain (right sided, wraps around to right flank ), + cough (ongoing, dry), + shortness of breath and + other (wheezing, nausea); no fever/chills The patient is a 64 year old female with a history of asthma, former smoker, HTN, and hypercholesteremia who presents to the Emergency Room with complaints of cough. The patient has been experiencing an ongoing dry cough had a port placement and two biopsies performed by Dr. Sarah today without complic ations. Her family states that she experienced some post-op coughing today which worsened after arriving home this evening. Her cough became associated with SOB, wheezing, and nausea. She used her inhaler and took cough syrup with no relief. The only thing that slightly relieves her symptoms is sitting upright. Additionally she began to experience right sided chest pain that wraps around to her right flank. The patient called Dr. Sarah and he recommended that she come to the ED for her symptoms. She does not have a prior history of heart problems and her most recent echocardiogram was performed 4 days ago without any abnormalities. Of note, the patient received conscious sedation anesthesia during her procedure today. No intubation. She has not been exposed to anyone with similar symptoms but includes that her grandson has an ear infection. She denies rhinorrhea, stuffy nose, sore throat, fever, numbness, tingling, and dizziness. The patient offers no further concerns at this time. No history of heart disease or congestive heart failure. Home Medications Home Medications Medication Instructions Recorded Confirmed Type Combigan 1 drp OPHTHALMIC (EYE) BID 08/15/18 11/26/19 History amlodipine 10 mg PO QAM 08/15/18 11/26/19 History losartan 100 mg PO QAM 08/15/18 11/26/19 History ofloxacin 1 drp OPHTHALMIC (EYE) BID 08/15/18 11/26/19 History pantoprazole [Protonix] 40 mg PO QAM PRN 08/15/18 11/26/19 History albuterol sulfate [ProAir HFA] 2 puff INHALATION QID PRN 07/18/19 11/26/19 History cholecalciferol (vitamin D3) 1,000 unit PO QPM 07/18/19 11/26/19 History [Vitamin D3] duloxetine 60 mg PO QAM 07/18/19 11/26/19 History fluticasone propionate [Flonase 2 spray INTRANASAL DAILY PRN 07/18/19 11/26/19 History Allergy Relief] furosemide 20 mg PO QAM PRN 07/18/19 11/26/19 History naproxen sodium 550 mg PO BID PRN 07/18/19 11/26/19 History sucralfate 1 g PO TIDM PRN 07/18/19 11/26/19 History Symbicort 2 puff INHALATION BID 11/23/19 11/26/19 History ezetimibe 10 mg PO DAILY 11/26/19 11/26/19 History hydralazine 50 mg PO BID 11/26/19 11/26/19 History montelukast 10 mg PO DAILY 11/26/19 11/26/19 History rosuvastatin 40 mg PO DAILY 11/26/19 11/26/19 History Allergies Allergy/AdvReac Type Severity Reaction Status Date / Time amoxicillin Allergy Severe AUGMENTIN-ITCH,SWELLING,DIFFICULTY Verified 11/26/19 09:25 BREATHING clavulanic acid Allergy Severe AUGMENTIN-ITCH,SWELLING,DIFFICULTY Verified 11/26/19 09:25 BREATHING Penicillins Allergy Severe AUGMENTIN-ITCH,SWELLING,DIFFICULTY Verified 11/26/19 09:25 BREATHING lisinopril Allergy Mild COUGH/Swell Verified 11/26/19 09:25 ing Sulfa (Sulfonamide Allergy Mild RASH Verified 11/26/19 09:25 Antibiotics) Past Med/Surg History Medical History Anxiety Asthma Breast cancer Carotid stenosis Chronic back pain Depression Fibromyalgia GI bleed hx (noted in [facility] records from 07/2018); no further details available Glaucoma Hyperlipidemia Hypertension Irritable bowel disease Morbid obesity Osteoarthritis Restrictive lung disease Rheumatoid arthritis SOB (shortness of breath) on exertion Stomach ulcer hx (noted in [facility] records from 07/2018); no further details available Vertigo BPPV Surgical History H/O exploratory laparotomy History of bilateral tubal ligation History of section X 1 History of colonoscopy History of dilatation and curettage History of esophagogastroduodenoscopy (EGD) 07/25/19 ([facility]) History of herniorrhaphy MULTIPLE History of nasal septoplasty History of repair of hiatal hernia lap History of repair of rotator cuff RIGHT History of tonsillectomy and adenoidectomy History of tooth extraction History of total abdominal hysterectomy and bilateral salpingo-oophorectomy Family History Father Diabetes Social History Preferred Language: Thai Communication Ability: Effective Actuary Clerk Required: No Beliefs That Will Affect Care: None Current Living Situation: Spouse Other Information That Helps Us Care for You: No Feels Safe at Home: Yes Safety Concerns: Feels Safe At This Time Smoking Status: Former smoker Second Hand Exposure: No ; Hx Alcohol Use: No Hx Substance Use: No Review of Systems See HPI for pertinent positives & negatives. and A total of 10 systems reviewed and were otherwise negative Physical Exam Vital Signs Vital Signs - 24 hr 11/26/19 17:48 11/26/19 19:01 11/26/19 19:29 Pulse Rate 71 Pulse Rate [Right Radial] 66 67 Pulse Rhythm Regular Pulse Strength Normal Respiratory Rate 28 H 16 19 Respiratory Effort / Characteristics Non-Labored Spontaneous Non-Labored Spontaneous Non-Labored Spontaneous Respiratory Depth Normal Normal Respiratory Pattern Regular Blood Pressure 158/85 H Blood Pressure [Right Arm] 143/93 H Blood Pressure Mean 109 Blood Pressure Mean [Right Arm] 109 Blood Pressure Position Sitting Pulse Oximetry 92 91 92 Oxygen Delivery Method Room Air Room Air Room Air Oxygen Flow Rate Sepsis Recent Fever Within 48 Hours No Sepsis New/Unexplained Change in Mental Status No Sepsis Action Taken by Nursing No Action Required Oxygen Flow Rate - Titration Pulse Oximetry Post Tiitration 11/26/19 19:58 11/26/19 20:43 11/26/19 21:30 Pulse Rate Pulse Rate [Right Radial] 69 Pulse Rhythm Pulse Strength Respiratory Rate 20 Respiratory Effort / Characteristics Non-Labored Spontaneous Respiratory Depth Normal Respiratory Pattern Blood Pressure Blood Pressure [Right Arm] 149/81 H Blood Pressure Mean Blood Pressure Mean [Right Arm] 103 Blood Pressure Position Pulse Oximetry 89 L 92 Oxygen Delivery Method Nasal Cannula Room Air Room Air Oxygen Flow Rate 0 Sepsis Recent Fever Within 48 Hours Sepsis New/Unexplained Change in Mental Status Sepsis Action Taken by Nursing Oxygen Flow Rate - Titration 2 Pulse Oximetry Post Tiitration 94 GENERAL: alert, uncomfortable appearing, well nourished, no distress, non-toxic, frequent cough noted during exam. EYE EXAM: normal conjunctiva, PERRL and EOM's grossly intact OROPHARYNX: no exudate, no erythema, lips, buccal mucosa, and tongue normal and mucous membranes are moist NECK: supple, no nuchal rigidity, no adenopathy, non-tender LUNGS: Clear to auscultation. Normal chest wall mechanics. No wheezes, rhonchi, or rales. HEART: no murmurs, S1 normal and S2 normal CHEST: Dressing to the right superior anterior chest wall. ABDOMEN: abdomen soft, non-tender, normo-active bowel sounds, no masses, no rebound or guarding. BACK: Back is symmetrical on inspection and there is no deformity, no midline tenderness, no CVA tenderness. SKIN: no rashes and no bruising UPPER EXTREMITIES: upper extremities are grossly normal. FROM, nml pulses b/l. LOWER EXTREMITIES: No pitting edema. FROM, nml pulses b/l. NEURO EXAM: Normal sensorium, cranial nerves II-XII grossly intact, normal speech, no gross weakness of arms, no gross weakness of legs. Course Course 1800: Past medical records reviewed. The patient was evaluated in room A02. A complete history and physical exam was performed. 1823: I spoke to Dr. Sarah who states that if there is no obvious delayed pn eumothorax that he will pursue additional evaluation for shortness of breath. 1957: I checked on the patient and updated her on CT results. 2049: I spoke to Dr. Rob who recommends inpatient mgmt. 2053: I spoke to Dr. Giron, [facility] Hospitalist who will further evaluate the patient. 2099: I re-checked the patient and updated her on plan to admit. The patient verbally expressed understanding and agreement of the treatment plan. The patient will be evaluated for further treatment. Administered Medications Miscellaneous (Order Awaiting Action) 1 ea N/A QS KITA Stop: 12/27/19 00:00 Last Admin: 11/26/19 23:10 Dose: Not Given Documented by: [id number] Montelukast Sodium (Singulair) 10 mg PO HS KITA Stop: 12/26/19 22:59 Last Admin: 11/26/19 23:07 Dose: 10 mg Documented by: [id number] Discontinued Medications Albuterol (Duoneb) 3 ml NEB NOW STA Stop: 11/26/19 18:31 Last Admin: 11/26/19 18:59 Dose: 3 ml Documented by: [id number] Furosemide (Lasix) 40 mg IV NOW STA Stop: 11/26/19 19:49 Last Admin: 11/26/19 20:02 Dose: 40 mg Documented by: [id number] Ioversol (Optiray 320 125ml) 118 ml IV ONCE PRN PRN Reason: Interaction Checking Stop: 11/30/19 19:10 Last Admin: 11/26/19 19:12 Dose: 1 ml Documented by: [id number] Potassium Chloride (Klor-Con M20) 40 meq PO NOW STA Stop: 11/26/19 19:49 Last Admin: 11/26/19 20:02 Dose: 40 meq Documented by: [id number] Medical Decision Making Differential Diagnosis Differential diagnosis includes but is not limited to pneumonia, bronchitis, COPD/Asthma exacerbation, pneumothorax, pulmonary embolism, congestive heart failure, acute coronary syndrome Medical Records Attestation: I reviewed the patient's medical records. The patient had an echo done last week which showed a normal injection fraction 60-64%. Home Medications Current Medication List: was personally reviewed by me Laboratory Data Attestation: I reviewed the patient's lab results. Result diagrams: 11/26/19 18:35 11/26/19 18:35 Lab Results 11/26/19 11/26/19 Range/Units 18:35 18:35 WBC 17.53 H (4.8-10.8) K/uL RBC 4.40 (4.2-5.4) M/uL Hgb 14.1 (12.0-16.0) g/dL Hct 41.3 (37-47) % MCV 93.9 (80-100) fL MCH 32.0 (25-34) pg MCHC 34.1 (32-36) g/dL RDW Std Deviation 42.8 (36.4-46.3) fL RDW Coeff of Yesi 12.6 (11.5-14.5) % Plt Count 222 (130-400) K/uL MPV 10.2 (7.4-10.4) fL Immature Gran % (Auto) 0.2 % Neut % (Auto) 85.5 % Lymph % (Auto) 8.3 % [place] % (Auto) 5.3 % Eos % (Auto) 0.6 % Baso % (Auto) 0.1 % Immature Gran # (Auto) 0.03 H (0.00-0.02) K/uL Neut # (Auto) 14.99 H (1.4-6.5) K/uL Lymph # (Auto) 1.46 (1.2-3.4) K/uL [place] # (Auto) 0.93 H (0.11-0.59) K/uL Eos # (Auto) 0.10 (0-0.5) K/uL Baso # (Auto) 0.02 (0-0.2) K/uL Sodium 137 (136-145) mmol/L Potassium 3.8 (3.5-5.1) mmol/L Chloride 104 (98-107) mmol/L Carbon Dioxide 27 (21-32) mmol/L Anion Gap 6.0 (3-11) BUN 14 (7-18) mg/dl Creatinine 0.70 (0.6-1.2) mg/dl Est Cr Clr Drug Dosing 106.2 ml/min Est GFR ( Amer) 106.1 Est GFR (Non-Af Amer) 91.6 BUN/Creatinine Ratio 19.4 (10-20) Glucose 130 H (70-99) mg/dl Calcium 8.9 (8.5-10.1) mg/dl Troponin I < 0.015 (0-0.045) ng/ml NT-Pro-B Natriuret Pep 100 (0-900) pg/ml Imaging Data Radiologist's Impression: Radiology results as stated below per my review and the radiologist's interpretation: XR chest 1V portable CLINICAL HISTORY: 64 years-old Female presenting with cough, sob, s/p port placement. TECHNIQUE: Portable upright AP view of the chest was obtained. COMPARISON: 11/26/2019 at 12:41 PM. FINDINGS: Right subclavian Mediport terminates in the lower SVC. Cardiac silhouette normal in size. Patchy bilateral mid to basilar predominant pulmonary opacities. Mild prominence of pulmonary vasculature. These findings are new from prior. No large effusion or pneumothorax. Degenerative changes of the thoracic spine. Upper abdomen normal. IMPRESSION: 1. Interval development of pulmonary vascular congestion and suspected mild pulmonary edema. An infectious etiology would be unexpected to arise in such a short time frame. Findings are not overly convincing for aspiration. ACT 112: Negative or not required by law. Electronically signed by: Johnson Mñuoz M.D. 11/26/2019 7:[address] angio chest PE protocol CLINICAL HISTORY: 64 years-old Female presenting with cough, shortness of breath, clinical concern for pulmonary embolism. TECHNIQUE: Multidetector CT angiography of the chest was performed after administration of intravenous contrast. 3-D volumetric and/or maximum intensity projection (MIP) images were subsequently reconstructed for review. IV contrast: 120 mL of Optiray 320. One or more dose lowering techniques were used consistent with the principles of ALARA (as low as reasonably achievable), including automatic exposure control, mA or kV adjustment to individual patient size, and/or use of iterative reconstruction. COMPARISON: 04/01/2017. CT DOSE (mGy.cm): The estimated cumulative dose is 926.13 mGy.cm. FINDINGS: Supervisor Prop Making topogram: Unremarkable. Pulmonary vasculature: The study is suboptimal for the assessment of the pulmonary vascular tree secondary to timing of the contrast bolus and respiratory motion artifact. Allowing for limited image quality, no central filling defect to suggest pulmonary embolus. Main pulmonary artery is not enlarged. No flattening of the interventricular septum. No intracardiac filling defect. No reflux of contrast into the hepatic veins. Remaining chest: Soft tissues: Normal thyroid. Right subclavian Mediport with associated soft tissue gas along the upper right breast, likely indicating recent placement. Catheter terminates in the SVC. No axillary, supraclavicular, mediastinal, or hilar lymphadenopathy. Normal aorta. Top normal heart size. Coronary artery calcification. Small right and trace left pleural effusions. Upper abdomen normal. Lungs and airways: No pneumothorax. Significant bronchial wall thickening diffusely though most severe in the lower lobes. Pulmonary arteries enlarged relative to adjacent bronchi. Severe smooth interlobular septal thickening diffusely. Patchy groundglass opacity with a peribronchial vascular and basilar predominance. Overall evaluation of lung parenchyma is extremely limited by respiratory motion artifact. Musculoskeletal: Degenerative changes of the spine. Degenerative changes of the glenohumeral joints, right greater than left. IMPRESSION: 1. Allowing for suboptimal image quality, no evidence of pulmonary embolus. 2. Severe congestive changes and early/mild pulmonary edema. 3. Small right and trace left pleural effusions. ACT 112: Negative or not required by law. Electronically signed by: Johnson Muñoz M.D. 11/26/2019 7:33 PM ECG Data Attestation: I personally reviewed and interpreted this ECG as follows: Indication: + chest pain Rate (beats per minute): 69 Rhythm: + sinus rhythm ECG Union: + Left axis deviation ECG Findings: + Other (normal intervals, no acute ischemic changes ); no PACs and no PVCs Blood Pressure Blood Pressure Findings: Elevated blood pressure Blood Pressure Disposition: further management by hospitalist MDM Narrative Patient here with increased shortness of breath and acute pulmonary edema on chest x-ray following port placement and breast biopsy earlier today. Patient sent for CT angiography of the chest as a precaution, no PE, no occult pneumonia, no evidence of aspiration. Patient's leukocytosis likely stress reaction from procedures and increased work of breathing. At this time I do not suspect occult infectious etiology. Patient given a dose of Lasix here and aft er some diuresis reported she was starting to feel improved. Patient's oxygen down to 89% initially, patient felt improved with nasal cannula supplemental oxygen. Case discussed with cardiology who recommended additional inpatient management. Case discussed with hospitalist. Patient and family made aware of all results and were in agreement with plan. I do not suspect ACS, tamponade, no evidence of effusion. I do not suspect other acute vascular or thromboembolic disease. Impression & Plan Dyspnea, Pulmonary edema, Status post biopsy Discharge Plan Visit Data *Final* Discharge Date/Time: 11/26/19 22:05 Chief Complaint: Cough Stated Complaint: COUGH, S/P PORT INSERTION TODAY ED Provider: Minal Reddy Discharge Problem: Dyspnea, Pulmonary edema, Status post biopsy Patient Disposition: Admitted As Inpatient Discharge Instructions Interventions: ED Discharge Assessment Last Done: 11/26/19 22:05 Discharge Problem: Pulmonary edema Qualifiers: Chronicity: acute Qualified Code(s): J81.0 - Acute pulmonary edema The scribe's documentation has been prepared under my direction and personally reviewed by me in its entirety. I confirm that the note above accurately reflects all work, treatment, procedures, and medical decision making performed by me.
[2019-11-27 06:01] LABS: Hematocrit (blood only) 38.6 % (37-47); Hemoglobin 13.2 g/dL (12.0-16.0); Mean Corpuscular Hemoglobin 32.3 pg (25-34); Mean Corpuscular Hgb Conc 34.2 g/dL (32-36); Mean Corpuscular Volume 94.4 fL (80-100); Platelet Count 181 K/uL (130-400); RDW Coefficient of Variation 12.7 % (11.5-14.5); RDW Standard Deviation 43.9 fL (36.4-46.3); Red Blood Count 4.09 M/uL (4.2-5.4)
[2019-11-27 06:37] LABS: BUN Creatinine Ratio 14.2 (10-20); Calcium 8.6 mg/dl (8.5-10.1); Creatinine Clr Calc Pharmacy 109.4 ml/min; Est GFR (African American) 107.1; Est GFR (Non-African American) 92.4; Potassium 3.6 mmol/L (3.5-5.1)
[2019-11-27] MEDS: HydrALAZINE TAB 50 MG TAB PO SCH ×2 (08:56→20:26)
[2019-11-27] MEDS: AMLODIPINE BESYLATE 5 MG TAB PO SCH (08:56)
[2019-11-27] MEDS: DULOXETINE HCL 60 MG CAP PO SCH (08:58)
[2019-11-27] MEDS: ROSUVASTATIN CALCIUM 20 MG TAB PO SCH (08:58)
[2019-11-27] MEDS: EZETIMIBE 10 MG TABLET PO SCH (08:59)
[2019-11-27] MEDS: LOSARTAN POTASSIUM 50 MG TAB PO SCH (08:59)
[2019-11-27] MEDS: BUDESONIDE/FORMOTEROL FUMARATE 80/4.5 60 PUFFS/INHALER INH SCH ×2 (09:00→20:27)
--- NOTE | 2019-11-27 09:48 | Electrocardiogram Report ---
Test Reason : Blood Pressure : / mmHG Vent. Rate : 069 BPM Atrial Rate : 069 BPM P-R Int : 192 ms QRS Dur : 092 ms QT Int : 410 ms P-R-T Axes : 042 -30 025 degrees QTc Int : 439 ms Poor data quality, interpretation may be adversely affected Normal sinus rhythm Left axis deviation Abnormal ECG When compared with ECG of 26-APR-2017 21:22, No significant change was found Confirmed by Tony Breaux ([id number]) on 11/27/2019 9:47:35 AM Referred By: REFERRED SELF Confirmed By:Tony Breaux
--- NOTE | 2019-11-27 15:51 | Hospitalist Progress Note ---
Date of Service November 27, 2019 Assessment & Plan (1) Pulmonary edema: Acute pulmonary edema Small bilateral pleural effusions CTA:Allowing for suboptimal image quality, no evidence of pulmonary embolus. Severe congestive changes and early/mild pulmonary edema. Small right and trace left pleural effusions. ? Secondary to propofol adverse effect Vs acute on chronic diastolic CHF Pro-BNP: ? Falsely negative secondary to obesity Received IV fluids preop and postop for Chemo-Port placement Volume status improved after IV Lasix Currently saturating on room air Echo pending Cardiology consulted Monitor I's and O's, daily weight Diuretics as needed Symptoms resolved as per patient (2) Asthma: No wheezing on exam Continue home inhalers (3) Breast cancer: Recent diagnosis, has not started chemotherapy yet Follows with Dr. Christiansen (4) Hypertension: BP Stable continue amlodipine, hydralazine, losartan (5) Hyperlipidemia: Continue rosuvastatin and Zetia (6) Fibromyalgia: (7) Anxiety: Continue home medications (8) DVT prophylaxis: SCDs Lovenox SQ Subjective Patient is seen and examined at bedside Complains of mild headache States shortness of breath completely resolved Denies any chest pain, nausea, abdominal pain, dizziness Family at baseline Offers no other complaints Review of Systems Review of Systems: All systems reviewed & are unremarkable except as noted in HPI & below Physical Exam Physical Exam: Physical Exam: Vitals signs as noted above General Appearance:Obese, no apparent distress Head: normocephalic, Atraumatic Eyes: normal inspection, EOMI Neck: supple, Trachea midline Respiratory/Chest: Normal breath sounds, CTA, No accessory muscle use Chemo Port on R side Cardiovascular: S1, S2, No murmur Abdomen/GI:Soft, Non tender, Bowel sounds present Extremities/Musculoskelatal:normal inspection, Trace edema Neurologic/Psych:AAOX3, grossly no focal neurological deficits Skin: normal color, warm Results & Data Vital Signs (Past 12 Hours) Vital Signs Temp Pulse Pulse Resp BP Pulse Ox 11/27/19 15:18 36.7 C 76 18 133/70 92 11/27/19 11:53 37.0 C 68 18 130/69 91 11/27/19 07:50 36.8 C 72 18 144/78 H 90 11/27/19 07:29 65 Laboratory Results Short CBC 11/26/19 11/27/19 Range/Units 18:35 05:42 WBC 17.53 H 9.30 (4.8-10.8) K/uL Hgb 14.1 13.2 (12.0-16.0) g/dL Hct 41.3 38.6 (37-47) % Plt Count 222 181 (130-400) K/uL [facility] [place]/26/19 11/27/19 18:35 05:42 Sodium 137 140 Potassium 3.8 3.6 Chloride 104 107 Carbon Dioxide 27 31 BUN 14 10 Creatinine 0.70 0.68 Glucose 130 H 113 H Calcium 8.9 8.6 Cardiac Enzymes 11/26/19 11/26/19 11/27/19 Range/Units 18:35 22:51 05:42 Troponin I < 0.015 < 0.015 < 0.015 (0-0.045) ng/ml (1) Pulmonary edema Chronicity: acute Qualified Code(s): J81.0 - Acute pulmonary edema
[2019-11-27] MEDS: MONTELUKAST SODIUM 10 MG TABLET PO SCH (20:27)
[2019-11-27] MEDS ORDERED: CHOLECALCIFEROL 1,000 UNITS TAB PO SCH (21:00)
[2019-11-27] MEDS ORDERED: TRAMADOL HCL 50 MG TABLET PO PRN (23:59)
[2019-11-28 07:48] LABS: Hematocrit (blood only) 40.6 % (37-47); Hemoglobin 13.5 g/dL (12.0-16.0); Mean Corpuscular Hemoglobin 31.8 pg (25-34); Mean Corpuscular Hgb Conc 33.3 g/dL (32-36); Mean Corpuscular Volume 95.8 fL (80-100); Mean Platelet Volume 10.1 fL (7.4-10.4); Platelet Count 203 K/uL (130-400); RDW Coefficient of Variation 12.8 % (11.5-14.5); RDW Standard Deviation 43.9 fL (36.4-46.3); Red Blood Count 4.24 M/uL (4.2-5.4); White Blood Count 8.29 K/uL (4.8-10.8)
[2019-11-28] MEDS: AMLODIPINE BESYLATE 5 MG TAB PO SCH (08:24)
[2019-11-28] MEDS: EZETIMIBE 10 MG TABLET PO SCH (08:24)
[2019-11-28] MEDS: DULOXETINE HCL 60 MG CAP PO SCH (08:25)
[2019-11-28] MEDS: ROSUVASTATIN CALCIUM 20 MG TAB PO SCH (08:25)
[2019-11-28] MEDS: LOSARTAN POTASSIUM 50 MG TAB PO SCH (08:25)
[2019-11-28] MEDS: HydrALAZINE TAB 50 MG TAB PO SCH (08:26)
[2019-11-28] MEDS: BUDESONIDE/FORMOTEROL FUMARATE 80/4.5 60 PUFFS/INHALER INH SCH (08:28)
[2019-11-28 08:36] LABS: BUN Creatinine Ratio 12.3 (10-20); Calcium 9.1 mg/dl (8.5-10.1); Creatinine Clr Calc Pharmacy 104.3 ml/min; Est GFR (African American) 104.3
[2019-11-28] MEDS ORDERED: ENOXAPARIN INJ 40 MG/0.4 ML SYR SQ SCH (09:00)
[2019-11-28] MEDS ORDERED: PERFLUTREN LIPID MICROSPHERE (DEFINITY) IV ONE (09:49)
--- NOTE | 2019-11-28 10:04 | Cardiology Consultation ---
Date of Consultation November 28, 2019 Assessment & Plan (1) Pulmonary edema: (2) Breast cancer: My clinical exam today would suggest that the patient's pulmonary edema has resolved. I believe this is noncardiogenic pulmonary edema perhaps from IV fluids given during her procedure and on rare occasions propofol. I do not believe any additional cardiac testing is indicated. The patient is anxious to return home and should be allowed to do so. She has a long road ahead of her with the start of chemotherapy. History of Present Illness Attending Physician: Arsenio Ashraf MD History of Present Illness This is a pleasant 64-year-old patient with a history as outlined below. She has a history of breast cancer and received a port to start chemotherapy. This was an outpatient procedure and she was discharged home. After arriving home however, she began to have a cough and felt short of breath. She returned to the hospital and her chest x-ray as well as CT scan of the chest suggest vascular congestion from pulmonary edema. Her cardiac troponins are negative and her EKG shows a sinus rhythm without acute changes. Pro natruretic peptide was not drawn. The patient was given IV Lasix and felt almost immediately better. She continues to feel well today and is anxious to return home. Past medical history: Major depressive disorder, recurrent episode, moderate (HCC) BMI 45.0-49.9, adult (HCC) Malignant neoplasm of upper-outer quadrant of left breast in female, estrogen receptor positive (HCC) 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) Dyslipidemia, goal LDL below 100 Fibromyalgia Vitamin D deficiency HTN, goal below 140/90 Fatty liver disease, nonalcoholic Ventral hernia Left ventricular hypertrophy Gastroesophageal reflux disease without esophagitis Irritable bowel syndrome with both constipation and diarrhea Restrictive lung disease Glaucoma of right eye Allergies Allergy/AdvReac Type Severity Reaction Status Date / Time amoxicillin Allergy Severe AUGMENTIN-ITCH,SWELLING,DIFFICULTY Verified 11/26/19 09:25 BREATHING clavulanic acid Allergy Severe AUGMENTIN-ITCH,SWELLING,DIFFICULTY Verified 11/26/19 09:25 BREATHING Penicillins Allergy Severe AUGMENTIN-ITCH,SWELLING,DIFFICULTY Verified 11/26/19 09:25 BREATHING lisinopril Allergy Mild COUGH/Swell Verified 11/26/19 09:25 ing Sulfa (Sulfonamide Allergy Mild RASH Verified 11/26/19 09:25 Antibiotics) Home Medications Home Medications Medication Instructions Recorded Confirmed Type Combigan 1 drp OPHTHALMIC (EYE) BID 08/15/18 11/26/19 History amlodipine 10 mg PO QAM 08/15/18 11/26/19 History losartan 100 mg PO QAM 08/15/18 11/26/19 History ofloxacin 1 drp OPHTHALMIC (EYE) BID 08/15/18 11/26/19 History pantoprazole [Protonix] 40 mg PO QAM PRN 08/15/18 11/26/19 History albuterol sulfate [ProAir HFA] 2 puff INHALATION QID PRN 07/18/19 11/26/19 History cholecalciferol (vitamin D3) 1,000 unit PO QPM 07/18/19 11/26/19 History [Vitamin D3] duloxetine 60 mg PO QAM 07/18/19 11/26/19 History fluticasone propionate [Flonase 2 spray INTRANASAL DAILY PRN 07/18/19 11/26/19 History Allergy Relief] furosemide 20 mg PO QAM PRN 07/18/19 11/26/19 History naproxen sodium 550 mg PO BID PRN 07/18/19 11/26/19 History sucralfate 1 g PO TIDM PRN 07/18/19 11/26/19 History Symbicort 2 puff INHALATION BID 11/23/19 11/26/19 History ezetimibe 10 mg PO DAILY 11/26/19 11/26/19 History hydralazine 50 mg PO BID 11/26/19 11/26/19 History montelukast 10 mg PO DAILY 11/26/19 11/26/19 History rosuvastatin 40 mg PO DAILY 11/26/19 11/26/19 History Patient History Medical History Anxiety Asthma Breast cancer Carotid stenosis Chronic back pain Depression Fibromyalgia GI bleed hx (noted in [facility] records from 07/2018); no further details available Glaucoma Hyperlipidemia Hypertension Irritable bowel disease Morbid obesity Osteoarthritis Restrictive lung disease Rheumatoid arthritis SOB (shortness of breath) on exertion Stomach ulcer hx (noted in [facility] records from 07/2018); no further details available Vertigo BPPV Surgical History H/O exploratory laparotomy History of bilateral tubal ligation History of section X 1 History of colonoscopy History of dilatation and curettage History of esophagogastroduodenoscopy (EGD) 07/25/19 ([facility]) History of herniorrhaphy MULTIPLE History of nasal septoplasty History of repair of hiatal hernia lap History of repair of rotator cuff RIGHT History of tonsillectomy and adenoidectomy History of tooth extraction History of total abdominal hysterectomy and bilateral salpingo-oophorectomy Family History Father Diabetes Social History Preferred Language: Chinese Communication Ability: Effective Disease Case Manager Required: No Beliefs That Will Affect Care: None Current Living Situation: Spouse Other Information That Helps Us Care for You: No Feels Safe at Home: Yes Safety Concerns: Feels Safe At This Time Smoking Status: Former smoker Second Hand Exposure: No ; Hx Alcohol Use: No Hx Substance Use: No Review of Systems Review of Systems: All systems reviewed & are unremarkable except as noted in HPI & below Nothing additional to add Physical Exam Physical Exam: General: no acute distress and stated age Head: normocephalic, no masses, lesions, tenderness or abnormalities Eyes: conjunctiva are pink and non-injected, sclera clear Neck: supple, no adenopathy, no bruits, normal jugular venous pulse, no hepatojugular reflux Chest: Access port right subclavian area Lungs: clear to auscultation and percussion Cardiac Exam: - regular rate & rhythm, no murmurs gallops or rubs - normal S1, normal S2 Pulses: 2(+) throughout Abdomen: abdomen soft, non-tender, no abnormal masses and no hepatosplenomegaly Musculoskeletal: no gait disturbance, no joint inflammation, no deforming arthritis Extremities: no edema and no cyanosis Neuro: grossly normal exam Results & Data Vital Signs (Past 12 Hours) Vital Signs Temp Pulse Pulse Resp BP Pulse Ox 11/28/19 07:49 36.8 C 76 18 160/81 H 90 11/28/19 07:34 77 11/28/19 04:07 37.2 C 82 20 147/68 H 92 11/27/19 23:50 78 11/27/19 23:40 37.4 C 80 20 146/70 H 90 Laboratory Results Laboratory Results - last 24 hr 11/28/19 11/28/1911/28/20 07:17 07:17 10:04 WBC 8.29 RBC 4.24 Hgb 13.5 Hct 40.6 MCV 95.8 MCH 31.8 MCHC 33.3 RDW Std Deviation 43.9 RDW Coeff of Yesi 12.8 Plt Count 203 MPV 10.1 Sodium 141 Potassium Pending Chloride 106 Carbon Dioxide 31 Anion Gap 5.0 BUN 9 Creatinine 0.71 Est Cr Clr Drug Dosing 104.3 Est GFR ( Amer) 104.3 Est GFR (Non-Af Amer) 90.0 BUN/Creatinine Ratio 12.3 Glucose 118 H Calcium 9.1 Diagnostic Findings Echocardiogram November 22, 2019: Interpretation Summary The examination is adequate to evaluate the referral indication. The left ventricular cavity size is normal. The LV wall thickness is mildly increased (concentric). The left ventricular wall motion is normal. The qualitative LV ejection fraction is 60-64% (normal). There is focal calcification of the posterior mitral valve annulus preserved leaflet mobility and coaptation The left ventricular diastolic function is mildly abnormal (grade I). No pericardial effusion is noted. There is no evidence of pulmonary hypertension. Medications Administered Current Inpatient Medications Acetaminophen (Tylenol) 650 mg PO Q4H PRN PRN Reason: pain/fever Stop: 12/26/19 22:29 Acetaminophen/Butalbital/Caffeine (Fioricet) 1 tab PO Q4H PRN PRN Reason: Headache Stop: 12/28/19 10:05 Amlodipine Besylate (Norvasc) [facility] [place] Stop: 12/27/19 08:59 Last Admin: 11/28/19 08:24 Dose: 10 mg Documented by: Budesonide/Formoterol Fumarate (Symbicort 80mcg/4.5mcg) 2 puffs INH BID [facility] Stop: 12/27/19 08:59 Last Admin: 11/28/19 08:28 Dose: 2 puffs Documented by: Diphenhydramine HCl (Benadryl Capsule) 25 mg PO HS PRN PRN Reason: Insomnia Stop: 12/26/19 22:29 Last Admin: 11/27/19 20:30 Dose: 25 mg Documented by: Duloxetine HCl (Cymbalta) 60 mg PO QAM [facility] Stop: 12/27/19 08:59 Last Admin: 11/28/19 08:25 Dose: 60 mg Documented by: Ezetimibe (Zetia) 10 mg PO DAILY [facility] Stop: 12/27/19 08:59 Last Admin: 11/28/19 08:24 Dose: 10 mg Documented by: Enoxaparin Sodium (Lovenox) 40 mg SQ QAM [facility] Stop: 12/28/19 08:59 Last Admin: 11/28/19 08:26 Dose: 40 mg Documented by: Hydralazine HCl (Apresoline) 50 mg PO BID [facility] Stop: 12/27/19 08:59 Last Admin: 11/28/19 08:26 Dose: 50 mg Documented by: Losartan Potassium (Cozaar) 100 mg PO QAM [facility] Stop: 12/27/19 08:59 Last Admin: 11/28/19 08:25 Dose: 100 mg Documented by: Miscellaneous (Order Awaiting Action) 1 ea N/A QS [facility] Stop: 12/27/19 00:00 Last Admin: 11/28/19 08:29 Dose: Not Given Documented by: Montelukast Sodium (Singulair) 10 mg PO HS [facility] Stop: 12/26/19 22:59 Last Admin: 11/27/19 20:27 Dose: 10 mg Documented by: Rosuvastatin Calcium (Crestor) 40 mg PO DAILY [facility] Stop: 12/27/19 08:59 Last Admin: 11/28/19 08:25 Dose: 40 mg Documented by: Tramadol HCl (Ultram) 25 - 50 mg PO Q4H PRN PRN Reason: Pain Stop: 12/27/19 23:58 Last Admin: 11/28/19 00:22 Dose: 50 mg Documented by: Vitamin D (Vitamin D3) 1,000 units PO QPM [facility] Stop: 12/27/19 20:59 Last Admin: 11/27/19 20:27 Dose: 1,000 units Documented by: (1) Pulmonary edema Chronicity: acute Qualified Code(s): J81.0 - Acute pulmonary edema
[2019-11-28] MEDS ORDERED: BUTALBITAL/ACETAMIN/CAFFEINE TAB PO PRN (10:06)
--- NOTE | 2019-11-28 10:49 | Hospitalist Progress Note ---
Date of Service November 28, 2019 Assessment & Plan (1) Pulmonary edema: Acute pulmonary edema--Likely due to Propofol Small bilateral pleural effusions CTA:Allowing for suboptimal image quality, no evidence of pulmonary embolus. Severe congestive changes and early/mild pulmonary edema. Small right and trace left pleural effusions. ? Secondary to propofol adverse effect and due to IV fluids Pro-BNP: ? Falsely negative secondary to obesity Received IV fluids preop and postop for Chemo-Port placement Volume status improved after IV Lasix Currently saturating on room air Echo pending Appreciate Cardiology Input Pulmonary edema resolved (2) Asthma: No wheezing on exam Continue home inhalers (3) Breast cancer: Recent diagnosis, has not started chemotherapy yet Follows with Dr. Christiansen (4) Hypertension: BP Stable continue amlodipine, hydralazine, losartan (5) Hyperlipidemia: Continue rosuvastatin and Zetia (6) Fibromyalgia: (7) Anxiety: Continue home medications (8) DVT prophylaxis: SCDs Lovenox SQ Subjective Patient is seen and examined at bedside Doing much better today States no SOB at rest or with exertion Denies any chest pain, dizziness, nausea, abdominal pain, dizziness Eager to get discharged Review of Systems Review of Systems: All systems reviewed & are unremarkable except as noted in HPI & below Physical Exam Physical Exam: Physical Exam: Vitals signs as noted above General Appearance:Obese, no apparent distress Head: normocephalic, Atraumatic Eyes: normal inspection, EOMI Neck: supple, Trachea midline Respiratory/Chest: Normal breath sounds, CTA, No accessory muscle use Chemo Port on R side Cardiovascular: S1, S2, No murmur Abdomen/GI:Soft, Non tender, Bowel sounds present Extremities/Musculoskelatal:normal inspection, Trace edema Neurologic/Psych:AAOX3, grossly no focal neurological deficits Skin: normal color, warm Results & Data Vital Signs (Past 12 Hours) Vital Signs Temp Pulse Pulse Resp BP Pulse Ox 11/28/19 07:49 36.8 C 76 18 160/81 H 90 11/28/19 07:34 77 11/28/19 04:07 37.2 C 82 20 147/68 H 92 11/27/19 23:50 78 11/27/19 23:40 37.4 C 80 20 146/70 H 90 Laboratory Results Short CBC 11/28/19 Range/Units 07:17 WBC 8.29 (4.8-10.8) K/uL Hgb 13.5 (12.0-16.0) g/dL Hct 40.6 (37-47) % Plt Count 203 (130-400) K/uL BMP 11/28/19 11/28/19 07:17 10:04 Sodium 141 Potassium 3.4 L Chloride 106 Carbon Dioxide 31 BUN 9 Creatinine 0.71 Glucose 118 H Calcium 9.1 (1) Pulmonary edema Chronicity: acute Qualified Code(s): J81.0 - Acute pulmonary edema
--- NOTE | 2019-11-28 10:56 | Discharge Summary ---
Date of Service November 28, 2019 Admission HPI Per Admitting Provider 64-year-old female who presents the ED for evaluation of shortness of breath and cough. Patient had a port placed today as an outpatient procedure in preparation for beginning chemotherapy for breast cancer. Patient reports that shortly after the procedure, she developed cough and shortness of breath. When she arrived home, she was able to lie down for a short nap however whenever she woke up she had severe coughing with wheezing. She reports feeling short of breath at rest. Denies sputum production. No chest pain. She denies lightheadedness, dizziness, diaphoresis, syncopal events. Reports she otherwise been feeling well recently. No other recent illnesses, fevers, chills. Denies abdominal pain, nausea, vomiting, diarrhea. No urinary symptoms. In the ED, patient was found to be hypoxic on room air at 89% which improved with 2 L of oxygen via nasal cannula. CXR and CT chest are suggestive of pulmonary edema. Patient received nebulizer treatment and 40 mg IV Lasix with marked improvement in her symptoms. Admission Exam Per Admitting Provider Physical Exam Constitutional: WD/WN, vitals as above Eyes: PERRL, conjunctivae normal, anicteric sclerae ENMT: external ear and nose normal, oropharynx normal Respiratory: normal respiratory effort, lungs clear to auscultation Cardiovascular: Rate/Rhythm: regular rate and regular rhythm Vessels: normal peripheral pulses Extremities: no edema Chest (Breasts): Chest: + vascular access device or port (Right chest, dressing dry and intact, no surrounding erythema or drainage) Gastrointestinal (Abdomen): normal bowel sounds, soft, nontender, no hepatosplenomegaly Musculoskeletal: no cyanosis or clubbing, extremities motor strength 5/5 Skin: no rashes, warm and dry Neurologic: PERRL, EOMI, accommodation nl, no face palsy, no dysarthria Psychiatric: A+Ox3, euthymic affect Principal Diagnosis Acute pulmonary edema Discharge Data Allergies Allergy/AdvReac Type Severity Reaction Status Date / Time amoxicillin Allergy Severe AUGMENTIN-ITCH,SWELLING,DIFFICULTY Verified 11/26/19 09:25 BREATHING clavulanic acid Allergy Severe AUGMENTIN-ITCH,SWELLING,DIFFICULTY Verified 11/26/19 09:25 BREATHING Penicillins Allergy Severe AUGMENTIN-ITCH,SWELLING,DIFFICULTY Verified 11/26/19 09:25 BREATHING lisinopril Allergy Mild COUGH/Swell Verified 11/26/19 09:25 ing Sulfa (Sulfonamide Allergy Mild RASH Verified 11/26/19 09:25 Antibiotics) Consultations 11/26/19 20:54 ED Decision to Admit Stat 11/26/19 22:30 Consult Cardiology Routine Procedures Performed CTA: 1. Allowing for suboptimal image quality, no evidence of pulmonary embolus. 2. Severe congestive changes and early/mild pulmonary edema. 3. Small right and trace left pleural effusions. Ordered Studies 11/26/19 18:30 CT angio chest PE protocol Stat Hospital Course (1) Pulmonary edema: Acute pulmonary edema--Likely due to Propofol Small bilateral pleural effusions CTA:Allowing for suboptimal image quality, no evidence of pulmonary embolus. Severe congestive changes and early/mild pulmonary edema. Small right and trace left pleural effusions. ? Secondary to propofol adverse effect and due to IV fluids Pro-BNP: ? Falsely negative secondary to obesity Received IV fluids preop and postop for Chemo-Port placement Volume status improved after IV Lasix Currently saturating on room air Echo pending Appreciate Cardiology Input Pulmonary edema resolved (2) Asthma: No wheezing on exam Continue home inhalers (3) Breast cancer: Recent diagnosis, has not started chemotherapy yet Follows with Dr. Christiansen (4) Hypertension: BP Stable continue amlodipine, hydralazine, losartan (5) Hyperlipidemia: Continue rosuvastatin and Zetia (6) Fibromyalgia: (7) Anxiety: Continue home medications (8) DVT prophylaxis: SCDs Lovenox SQ Total Time Total Time Spent Total Time Spent (In Minutes): 36 minutes Total Time Includes: Examination of the Patient, Discharge Planning, Medication Reconciliation, Communication With Other Providers and Other Discharge Plan Discharge Items Patient Disposition: Home - Self-Care Reason For Visit: PULMONARY EDEMA Discharge Diagnosis: Acute pulmonary edema Activity: Resume your previous activity Exercise/Sports: Gradually increase as tolerated Non-emergency contact: Primary Care Provider and Oncologist Call non-emergency contact if: you have any medication questions, your symptoms worsen, your pain is not controlled, your pain is worsening, your pain is unusual for you, your pain is concerning for you and you have a fever Follow-up/Referrals: Christine Massey DO [Primary Care Provider] - Diet: Heart Healthy Addtl Attending Provider Instructions: Follow up with your PCP on Dec 03, 2019 at 11:00 AM Your ECHO results are pending at the time of results. Please follow up with your Primary Care physician for results Seek immediate medical attention if your symptoms reoccur or worsen Pending Studies at Discharge: Yes Studies:: ECHO Stand-Alone Forms: My [facility], Smoking Cessation Medications and DC Order Prescriptions: Continued Symbicort 80-4.5 mcg/actuation Hfa Aerosol Inhaler 2 puff INHALATION BID RF: 0 montelukast 10 mg tablet 10 mg PO DAILY RF: 0 hydralazine 50 mg tablet 50 mg PO BID RF: 0 ezetimibe 10 mg tablet 10 mg PO DAILY RF: 0 rosuvastatin 40 mg tablet 40 mg PO DAILY RF: 0 ofloxacin 0.3 % Drops 1 drp OPHTHALMIC (EYE) BID RF: 0 amlodipine 10 mg Tablet 10 mg PO QAM RF: 0 pantoprazole [Protonix] 40 mg Tablet,Delayed Release (Dr/Ec) 40 mg PO QAM PRN (Reason: Acid Reflux) RF: 0 losartan 100 mg Tablet 100 mg PO QAM RF: 0 Combigan 0.2-0.5 % Drops 1 drp OPHTHALMIC (EYE) BID RF: 0 sucralfate 1 gram Tablet 1 g PO TIDM PRN (Reason: Abdominal Discomfort) RF: 0 naproxen sodium 550 mg Tablet 550 mg PO BID PRN (Reason: Pain) RF: 0 furosemide 20 mg Tablet 20 mg PO QAM PRN (Reason: Fluid Retention) RF: 0 albuterol sulfate [ProAir HFA] 90 mcg/actuation Hfa Aerosol Inhaler 2 puff INHALATION QID PRN (Reason: Shortness Of Breath) RF: 0 fluticasone propionate [Flonase Allergy Relief] 50 mcg/actuation [place],Suspension 2 spray INTRANASAL DAILY PRN (Reason: Allergy Symptoms) RF: 0 cholecalciferol (vitamin D3) [Vitamin D3] 1,000 unit Capsule 1,000 unit PO QPM RF: 0 duloxetine 60 mg Capsule,Delayed Release(Dr/Ec) 60 mg PO QAM RF: 0 Discharge Orders: Discharge Order (Routine); Ordered 11/28/19 Ordered By: Ryan Leon Admission Data Admit Date/Time: 11/27/19 18:22 Attending Provider: Arsenio Ashraf Admit Provider: Jerod Lewis Primary Care Provider: Christine Massey Other Providers: Terry Giron ; Quinton Rob ; Ryan Leon Other Interventions: Discharge Summary Assessment (RN) Last Done: 11/28/19 11:20 DC Date/Time DO NOT enter until pt leaves facility: 11/28/19 11:48
[2019-11-28 11:47] VITALS: BP 160/91; PULSE 78; TEMP 97.7; O2SAT 93
== END 2019-11-28 11:48 | disposition home or self-care (01) | DRG 189 ==
LOC: ED 17:39 → 2W 17:39 → SUATTDRO 21:47 → 2W 22:05 → SUATTDRO 11-27 18:22

== ENCOUNTER 2020-01-19 07:31 | Inpatient (IN) ==
[2020-01-19] MEDS ORDERED: MoRPHine SULFATE 4 MG/ML 1 ML CARP\\VIAL IV STA ×2 (07:48→09:42)
[2020-01-19] MEDS ORDERED: ONDANSETRON INJ 2 MG/ML 2 ML VIAL IV STA (07:48)
--- NOTE | 2020-01-19 07:52 | Emergency Department Note ---
Entered by Patricia Song acting as a scribe for Espinoza Oden DO History of Present Illness General Chief complaint: Illness Stated complaint: PT HAD CHEMO TUESDAY AND IS VERY SICK Time Seen by Provider: 01/19/20 07:42 Source: patient History of Present Illness Onset (ago): hour(s) (last night) Location: abdomen Pain Consistency: + intermittent Maximum Pain Intensity: 10 Quality: + other (diarrhea) Associated symptoms: + nausea/vomiting and + other (abdominal pain) The patient is a 64 year old female who presents to the Emergency Room with complaints of intermittent diarrhea beginning last night. The patient reports abdominal pain and dry heaving as beginning last night. She notes she was unable to swallow any pills including Zofran. The patient states she had her second chemotherapy treatment for her breast cancer 2 days ago. She notes she did not have similar symptoms after the first treatment. She states the cancer is only in her breast and the lymph node under her left arm. Home Medications Home Medications Medication Instructions Recorded Confirmed Type Combigan 1 drp OPHTHALMIC (EYE) BID 08/15/18 01/19/20 History amlodipine 10 mg PO QAM 08/15/18 01/19/20 History losartan 100 mg PO QAM 08/15/18 01/19/20 History ofloxacin 1 drp OPHTHALMIC (EYE) BID 08/15/18 01/19/20 History pantoprazole [Protonix] 40 mg PO QAM PRN 08/15/18 01/19/20 History albuterol sulfate [ProAir HFA] 2 puff INHALATION QID PRN 07/18/19 01/19/20 History cholecalciferol (vitamin D3) 1,000 unit PO QPM 07/18/19 01/19/20 History [Vitamin D3] duloxetine 60 mg PO QAM 07/18/19 01/19/20 History fluticasone propionate [Flonase 2 spray INTRANASAL DAILY PRN 07/18/19 01/19/20 History Allergy Relief] furosemide 20 mg PO QAM PRN 07/18/19 01/19/20 History naproxen sodium 550 mg PO BID PRN 07/18/19 01/19/20 History sucralfate 1 g PO TIDM PRN 07/18/19 01/19/20 History budesonide-formoterol [Symbicort] 2 puff INHALATION BID 11/23/19 01/19/20 History ezetimibe 10 mg PO DAILY 11/26/19 01/19/20 History hydralazine 50 mg PO BID 11/26/19 01/19/20 History montelukast 10 mg PO DAILY 11/26/19 01/19/20 History rosuvastatin 40 mg PO DAILY 11/26/19 01/19/20 History benzonatate 100 mg PO TID PRN 01/19/20 01/19/20 History cyclophosphamide 0 mg IV .Q2W 01/19/20 01/19/20 History dorzolamide 1 drp OPB BID 01/19/20 01/19/20 History doxorubicin [Adriamycin] 0 mg IV .Q2W 01/19/20 01/19/20 History loperamide [Imodium A-D] 2 mg PO Q3H PRN 01/19/20 01/19/20 History ondansetron HCl 8 mg PO UD 01/19/20 01/19/20 History paclitaxel 0 mg IV WK 01/19/20 01/19/20 History pegfilgrastim [Neulasta] 0 mg SUBCUT UD 01/19/20 01/19/20 History sennosides [Ex-Lax (sennosides)] 15 mg PO DAILY PRN 01/19/20 01/19/20 History Allergies Allergy/AdvReac Type Severity Reaction Status Date / Time amoxicillin Allergy Severe AUGMENTIN-ITCH,SWELLING,DIFFICULTY Verified 11/26/19 09:25 BREATHING clavulanic acid Allergy Severe AUGMENTIN-ITCH,SWELLING,DIFFICULTY Verified 11/26/19 09:25 BREATHING Penicillins Allergy Severe AUGMENTIN-ITCH,SWELLING,DIFFICULTY Verified 11/26/19 09:25 BREATHING lisinopril Allergy Mild COUGH/Swell Verified 11/26/19 09:25 ing Sulfa (Sulfonamide Allergy Mild RASH Verified 11/26/19 09:25 Antibiotics) Past Med/Surg History Medical History Anxiety Asthma Breast cancer Carotid stenosis Chronic back pain Depression Fibromyalgia GI bleed hx (noted in [facility] records from 07/2018); no further details available Glaucoma Hyperlipidemia Hypertension Irritable bowel disease Morbid obesity Osteoarthritis Restrictive lung disease Rheumatoid arthritis SOB (shortness of breath) on exertion Stomach ulcer hx (noted in [facility] records from 07/2018); no further details available Vertigo BPPV Surgical History H/O exploratory laparotomy History of bilateral tubal ligation History of section X 1 History of colonoscopy History of dilatation and curettage History of esophagogastroduodenoscopy (EGD) 07/25/19 ([facility]) History of herniorrhaphy MULTIPLE History of nasal septoplasty History of repair of hiatal hernia lap History of repair of rotator cuff RIGHT History of tonsillectomy and adenoidectomy History of tooth extraction History of total abdominal hysterectomy and bilateral salpingo-oophorectomy Family History Father Diabetes Social History Preferred Language: Danish Communication Ability: Effective Optometric Coordinator Required: No Beliefs That Will Affect Care: None Current Living Situation: Spouse Feels Safe at Home: Yes Smoking Status: Never smoker Second Hand Exposure: No ; Hx Alcohol Use: No Hx Substance Use: No Review of Systems See HPI for pertinent positives & negatives. and A total of 10 systems reviewed and were otherwise negative Physical Exam Vital Signs Vital Signs - 24 hr 01/19/20 07:37 01/19/20 07:48 01/19/20 09:31 Temperature 36.3 C L Temperature Source Oral Pulse Rate 80 Pulse Rate [Apical] 79 Respiratory Rate 20 18 Respiratory Effort / Characteristics Non-Labored Respiratory Depth Normal Blood Pressure 230/98 H Blood Pressure [Left Arm] 199/85 H Blood Pressure Mean 142 Blood Pressure Mean [Left Arm] 123 Pulse Oximetry 96 96 97 Oxygen Delivery Method Room Air Room Air Room Air Sepsis Recent Fever Within 48 Hours No Sepsis Action Taken by Nursing No Action Required CONSTITUTIONAL/VITAL SIGNS: Reviewed / noted above. GENERAL: Non-toxic in appearance. INTEGUMENTARY: Warm, dry, and [place]. HEAD: Normocephalic. EYES: without scleral icterus or trauma. ENT/OROPHARYNX: clear and moist. LYMPHADENOPATHY/NECK: Is supple without lymphadenopathy or meningismus. RESPIRATORY: Lungs clear and equal. CARDIOVASCULAR: Regular rate and rhythm. GI/ABDOMEN: Mild diffuse abdominal tenderness. Soft. No organomegaly or pulsatile mass. No rebound or guarding. Normal bowel sounds. EXTREMITIES: Warm and well perfused. BACK: No CVA tenderness. NEUROLOGICAL: Intact without focal deficits. PSYCHIATRIC: normal affect. MUSCULOSKELETAL: Normally developed with good muscle tone. Course Course 0744: Past medical records reviewed. The patient was evaluated in room A02. A complete history and physical exam was performed. 1100: Upon reevaluation, I discussed findings and results with the patient. She verbalized agreement of the treatment plan. I spoke with Dr. Lewis of the [facility]. The patient will be evaluated for further management and care. Administered Medications Ioversol (Optiray 320 100ml) 94 ml IV ONCE PRN PRN Reason: Interaction Checking Stop: 01/23/20 09:58 Last Admin: 01/19/20 10:00 Dose: 94 ml Documented by: [id number] Discontinued Medications Sodium Chloride (Nss 1000ml) 1,000 mls @ 999 mls/hr IV .Q1H1M KITA Stop: 01/19/20 09:00 Last Infusion: 01/19/20 09:07 Dose: 0 mls/hr Documented by: [id number] Admin: 01/19/20 08:04 Dose: 999 mls/hr Documented by: [id number] Prochlorperazine 10 mg/ (Syringe) 10 mls @ 5 mls/min IV ONE ONE Stop: 01/19/20 10:47 Last Admin: 01/19/20 10:52 Dose: 5 mls/min Documented by: [id number] Morphine Sulfate (Morphine Sulfate) 4 mg IV NOW STA Stop: 01/19/20 07:49 Last Admin: 01/19/20 08:05 Dose: 4 mg Documented by: [id number] Morphine Sulfate (Morphine Sulfate) 4 mg IV NOW STA Stop: 01/19/20 09:43 Last Admin: 01/19/20 09:50 Dose: 4 mg Documented by: [id number] Ondansetron HCl (Zofran) 4 mg IV NOW STA Stop: 01/19/20 07:49 Last Admin: 01/19/20 08:04 Dose: 4 mg Documented by: [id number] Prochlorperazine (Compazine) Confirm Administered Dose 10 mg .ROUTE .STK-MED ONE Stop: 01/19/20 10:50 Last Admin: 01/19/20 10:52 Dose: Not Given Documented by: [id number] Medical Decision Making Differential Diagnosis Differential diagnosis:Etiologies such as gastroenteritis, food borne illness, infections, appendicitis, diverticulitis, inflammatory bowel disease, obstruction, GI bleed, biliary pathology, as well as others were entertained. Medical Records Attestation: I reviewed the patient's medical records. Home Medications Current Medication List: was personally reviewed by me Laboratory Data Attestation: I reviewed the patient's lab results. Result diagrams: 01/19/20 08:00 01/19/20 08:00 Lab Results 01/19/20 01/19/20 Range/Units 08:00 08:00 WBC 37.62 H* (4.8-10.8) K/uL RBC 4.00 L (4.2-5.4) M/uL Hgb 12.7 (12.0-16.0) g/dL Hct 36.9 L (37-47) % MCV 92.3 (80-100) fL MCH 31.8 (25-34) pg MCHC 34.4 (32-36) g/dL RDW Std Deviation 46.5 H (36.4-46.3) fL RDW Coeff of Yesi 13.8 (11.5-14.5) % Plt Count 210 (130-400) K/uL MPV 9.5 (7.4-10.4) fL Immature Gran % (Auto) 4.7 % Neut % (Auto) 90.8 % Lymph % (Auto) 2.4 % [place] % (Auto) 1.9 % Eos % (Auto) 0.1 % Baso % (Auto) 0.1 % Immature Gran # (Auto) 1.78 H (0.00-0.02) K/uL Neut # (Auto) 34.15 H (1.4-6.5) K/uL Lymph # (Auto) 0.90 L (1.2-3.4) K/uL [place] # (Auto) 0.73 H (0.11-0.59) K/uL Eos # (Auto) 0.02 (0-0.5) K/uL Baso # (Auto) 0.04 (0-0.2) K/uL Dohle Bodies 1+ Sodium 138 (136-145) mmol/L Potassium 3.5 (3.5-5.1) mmol/L Chloride 104 (98-107) mmol/L Carbon Dioxide 29 (21-32) mmol/L Anion Gap 5.0 (3-11) BUN 8 (7-18) mg/dl Creatinine 0.56 L (0.6-1.2) mg/dl Est Cr Clr Drug Dosing 131.0 ml/min Est GFR ( Amer) 114.2 Est GFR (Non-Af Amer) 98.5 BUN/Creatinine Ratio 13.7 (10-20) Glucose 136 H (70-99) mg/dl Calcium 8.5 (8.5-10.1) mg/dl Total Bilirubin 0.6 (0.2-1) mg/dl AST 27 (15-37) U/L ALT 45 (12-78) U/L Alkaline Phosphatase 105 (45-117) U/L Total Protein 7.6 (6.4-8.2) gm/dl Albumin 3.7 (3.4-5.0) gm/dl Globulin 3.9 (2.5-4.0) gm/dl Albumin/Globulin Ratio 1.0 (0.9-2) Lipase 36 L (73-393) U/L Imaging Data Radiologist's Impression: Radiology results as stated below per my review and the radiologist's interpretation: CT SCAN OF THE ABDOMEN AND PELVIS WITH IV CONTRAST CLINICAL HISTORY: Generalized abdominal pain. COMPARISON STUDY: Abdominal CT dated 10/05/2017. TECHNIQUE: Following the IV administration of 94 cc of Optiray 320, CT scan of the abdomen and pelvis is performed from the lung bases to the proximal femora. Images are reviewed in the axial, sagittal, and coronal planes. IV contrast was administered without complication. A dose lowering technique was utilized adhering to the principles of ALARA. CT DOSE: 1755.66 mGy.cm FINDINGS: Lung bases: The heart is normal in size and without pericardial effusion. The lung bases are clear noting dependent atelectasis. There is a small hiatal hernia. Liver: The contrast-enhanced liver is enlarged, measuring 24.5 cm in length. The liver demonstrates diffusely diminished attenuation consistent with severe hepatic steatosis. There is minimal central intrahepatic biliary ductal dilatation. The hepatic veins and portal veins are patent. Gallbladder: Surgically absent noting clips in the gallbladder fossa. Spleen: The spleen is enlarged measuring 14.5 cm in length. Pancreas: Unremarkable. Adrenal glands: Unremarkable. Kidneys: The contrast enhanced kidneys are normal in size and without hydronephrosis. The kidneys enhance symmetrically. Abdominal vasculature: The abdominal aorta is normal in course and caliber noting mild to moderate atherosclerotic calcification. Bowel: There is mild colonic diverticulosis without CT evidence of acute diverticulitis. No bowel obstruction is seen. The appendix is not identified and reported surgically absent. Peritoneum: There is no intraperitoneal free air or abdominal ascites. There is evidence of previous ventral hernia repair. There is a fat-containing hernia in the left ventral pelvis seen on image #354. Lymphadenopathy: None. Pelvic viscera: The bladder is normal as visualized. The uterus is surgically absent. No adnexal lesion is seen. Trace free fluid is noted in the cul-de-sac. Skeletal structures: The skeletal structures are osteopenic. Mild lumbosacral spondylosis is observed. No lytic or blastic lesions are seen. IMPRESSION: 1. Trace free fluid in the cul-de-sac is nonspecific and may be on a reactive basis. 2. Mild colonic diverticulosis without CT evidence of acute diverticulitis. 3. Hepatomegaly and severe hepatic steatosis. 4. Splenomegaly. 5. Additional findings as above. ACT 112: Negative or not required by law. Electronically signed by: Jim Rodriguez M.D. 01/19/2020 10:24 AM Blood Pressure Blood Pressure Findings: Elevated blood pressure Blood Pressure Disposition: further management by hospitalist ABEL Lee This is a 64-year-old female who presents to the ED with a chief complaint of nausea, dry heaves and diarrhea. The patient states that she had chemotherapy 2 days ago for breast cancer. She states that this is her second treatment. She reports that she developed diarrhea and had throughout the night last night as well as some dry heaves. She states that she cannot keep anything down. She feels bloated and has some left upper quadrant abdominal discomfort. She states that her symptoms did not start with abdominal pain but diarrhea and dry heaves. The patient's initial blood pressure was elevated. She does have a history of hypertension. The patient's exam revealed some mild diffuse abdominal tenderness. The patient has a leukocytosis with a white blood cell count of 37.6. This could be related to her recent chemo. Chemistry panel was unremarkable. CT scan of the abdomen pelvis reveals hepatic steatosis as well as hepatosplenomegaly. There does not appear to be any acute intra-abdominal process. The patient was treated with IV morphine, IV fluids as well as IV Zofran and IV Compazine. She continues to have retching and vomiting in the ED although she is not bringing much up. She is unable to tolerate her medications at home. She will need to be admitted for further inpatient evaluation for intractable vomiting. Impression & Plan Intractable vomiting, Abdominal pain, Leukocytosis Discharge Plan Visit Data Chief Complaint: Illness Stated Complaint: PT HAD CHEMO TUESDAY AND IS VERY SICK ED Provider: Espinoza Oden Discharge Problem: Intractable vomiting, Abdominal pain, Leukocytosis Patient Disposition: Being Evaluated by Hospitalist Forms Stand Alone Forms: [facility] Prescriptions Prescriptions: No Action budesonide-formoterol [Symbicort] 80-4.5 mcg/actuation Hfa Aerosol Inhaler 2 puff INHALATION BID RF: 0 montelukast 10 mg tablet 10 mg PO DAILY RF: 0 hydralazine 50 mg tablet 50 mg PO BID RF: 0 ezetimibe 10 mg tablet 10 mg PO DAILY RF: 0 rosuvastatin 40 mg tablet 40 mg PO DAILY RF: 0 ondansetron HCl 8 mg tablet 8 mg PO UD RF: 0 loperamide [Imodium A-D] 2 mg Tablet 2 mg PO Q3H PRN (Reason: .) RF: 0 benzonatate 100 mg capsule 100 mg PO TID PRN (Reason: Cough) RF: 0 Ex-Lax (sennosides) 15 mg Tablet 15 mg PO DAILY PRN (Reason: .) RF: 0 dorzolamide 2 % drops 1 drp OPB BID RF: 0 Neulasta 6 mg/0.6 mL syringe, w/ wearable injector 0 mg SUBCUT UD RF: 0 cyclophosphamide 1 gram Recon Soln 0 mg IV .Q2W RF: 0 paclitaxel 6 mg/mL Concentrate 0 mg IV WK RF: 0 doxorubicin [Adriamycin] 10 mg/5 mL Solution 0 mg IV .Q2W RF: 0 ofloxacin 0.3 % Drops 1 drp OPHTHALMIC (EYE) BID RF: 0 amlodipine 10 mg Tablet 10 mg PO QAM RF: 0 pantoprazole [Protonix] 40 mg Tablet,Delayed Release (Dr/Ec) 40 mg PO QAM PRN (Reason: Acid Reflux) RF: 0 losartan 100 mg Tablet 100 mg PO QAM RF: 0 Combigan 0.2-0.5 % Drops 1 drp OPHTHALMIC (EYE) BID RF: 0 sucralfate 1 gram Tablet 1 g PO TIDM PRN (Reason: Abdominal Discomfort) RF: 0 naproxen sodium 550 mg Tablet 550 mg PO BID PRN (Reason: Pain) RF: 0 furosemide 20 mg Tablet 20 mg PO QAM PRN (Reason: Fluid Retention) RF: 0 albuterol sulfate [ProAir HFA] 90 mcg/actuation Hfa Aerosol Inhaler 2 puff INHALATION QID PRN (Reason: Shortness Of Breath) RF: 0 fluticasone propionate [Flonase Allergy Relief] 50 mcg/actuation [place],Susp ension 2 spray INTRANASAL DAILY PRN (Reason: Allergy Symptoms) RF: 0 cholecalciferol (vitamin D3) [Vitamin D3] 1,000 unit Capsule 1,000 unit PO QPM RF: 0 duloxetine 60 mg Capsule,Delayed Release(Dr/Ec) 60 mg PO QAM RF: 0 Referrals Referrals: Christine Massey DO [Primary Care Provider] - Discharge Problem: Intractable vomiting Qualifiers: Vomiting type: unspecified Nausea presence: unspecified Qualified Code(s): R11.10 - Vomiting, unspecified Abdominal pain Qualifiers: Abdominal location: left upper quadrant Qualified Code(s): R10.12 - Left upper quadrant pain Leukocytosis Qualifiers: Leukocytosis type: unspecified Qualified Code(s): D72.829 - Elevated white blood cell count, unspecified The scribe's documentation has been prepared under my direction and personally reviewed by me in its entirety. I confirm that the note above accurately reflects all work, treatment, procedures, and medical decision making performed by me.
[2020-01-19] MEDS ORDERED: SODIUM CHLORIDE 0.9% 1000ML 1,000 ML IV SCH (08:00)
[2020-01-19 08:15] LABS: Hematocrit (blood only) 36.9 % (37-47); Hemoglobin 12.7 g/dL (12.0-16.0); Mean Corpuscular Hemoglobin 31.8 pg (25-34); Mean Corpuscular Hgb Conc 34.4 g/dL (32-36); Mean Corpuscular Volume 92.3 fL (80-100); Mean Platelet Volume 9.5 fL (7.4-10.4); Platelet Count 210 K/uL (130-400); RDW Coefficient of Variation 13.8 % (11.5-14.5); RDW Standard Deviation 46.5 fL (36.4-46.3); White Blood Count 37.62 K/uL (4.8-10.8)
[2020-01-19 08:36] LABS: Albumin Level 3.7 gm/dl (3.4-5.0); BUN Creatinine Ratio 13.7 (10-20); Calcium 8.5 mg/dl (8.5-10.1); Est GFR (African American) 114.2; Est GFR (Non-African American) 98.5; Potassium 3.5 mmol/L (3.5-5.1)
[2020-01-19 08:39] LABS: Bilirubin,Total 0.6 mg/dl (0.2-1); Globulin 3.9 gm/dl (2.5-4.0); Total Protein 7.6 gm/dl (6.4-8.2)
[2020-01-19 08:42] LABS: Basophils # (auto) 0.04 K/uL (0-0.2); Basophils % (auto) 0.1 %; Dohle Bodies 1+; Eosinophils # (auto) 0.02 K/uL (0-0.5); Eosinophils % (auto) 0.1 %; Immature Granulocytes # (auto) 1.78 K/uL (0.00-0.02); Immature Granulocytes % (auto) 4.7 %; Lymphocytes % (auto) 2.4 %; Monocytes # (auto) 0.73 K/uL (0.11-0.59); Monocytes % (auto) 1.9 %; Neutrophils # (auto) 34.15 K/uL (1.4-6.5); Neutrophils % (auto) 90.8 %
[2020-01-19] MEDS ORDERED: IOVERSOL 100ml IV PRN (09:59)
--- NOTE | 2020-01-19 10:25 | CT Scan Report ---
CT SCAN OF THE ABDOMEN AND PELVIS WITH IV CONTRAST CLINICAL HISTORY: Generalized abdominal pain. COMPARISON STUDY: Abdominal CT dated 10/05/2017. TECHNIQUE: Following the IV administration of 94 cc of Optiray 320, CT scan of the abdomen and pelvi s is performed from the lung bases to the proximal femora. Images are reviewed in the axial, sagittal , and coronal planes. IV contrast was administered without complication. A dose lowering technique wa s utilized adhering to the principles of ALARA. CT DOSE: 1755.66 mGy.cm FINDINGS: Lung bases: The heart is normal in size and without pericardial effusion. The lung bases are clear no ting dependent atelectasis. There is a small hiatal hernia. Liver: The contrast-enhanced liver is enlarged, measuring 24.5 cm in length. The liver demonstrates d iffusely diminished attenuation consistent with severe hepatic steatosis. There is minimal central in trahepatic biliary ductal dilatation. The hepatic veins and portal veins are patent. Gallbladder: Surgically absent noting clips in the gallbladder fossa. Spleen: The spleen is enlarged measuring 14.5 cm in length. Pancreas: Unremarkable. Adrenal glands: Unremarkable. Kidneys: The contrast enhanced kidneys are normal in size and without hydronephrosis. The kidneys enh ance symmetrically. Abdominal vasculature: The abdominal aorta is normal in course and caliber noting mild to moderate at herosclerotic calcification. Bowel: There is mild colonic diverticulosis without CT evidence of acute diverticulitis. No bowel obs truction is seen. The appendix is not identified and reported surgically absent. Peritoneum: There is no intraperitoneal free air or abdominal ascites. There is evidence of previous ventral hernia repair. There is a fat-containing hernia in the left ventral pelvis seen on image #354 . Lymphadenopathy: None. Pelvic viscera: The bladder is normal as visualized. The uterus is surgically absent. No adnexal lesi on is seen. Trace free fluid is noted in the cul-de-sac. Skeletal structures: The skeletal structures are osteopenic. Mild lumbosacral spondylosis is observed . No lytic or blastic lesions are seen. IMPRESSION: 1. Trace free fluid in the cul-de-sac is nonspecific and may be on a reactive basis. 2. Mild colonic diverticulosis without CT evidence of acute diverticulitis. 3. Hepatomegaly and severe hepatic steatosis. 4. Splenomegaly. 5. Additional findings as above. ACT 112: Negative or not required by law. Electronically signed by: Jim Rodriguez M.D. 01/19/2020 10:24 AM
[2020-01-19] MEDS ORDERED: PROCHLORPERAZINE 10 MG in SYRINGE 8 ML IV ONE (10:46)
[2020-01-19] MEDS ORDERED: PROCHLORPERAZINE 5 MG/ML 2 ML VIAL ONE (10:49)
[2020-01-19] MEDS ORDERED: HydrALAZINE HCL 20 MG/ML VIAL IV STA (11:37)
--- NOTE | 2020-01-19 11:40 | XRay Report ---
SINGLE VIEW CHEST CLINICAL HISTORY: Leukocytosis. FINDINGS: An AP, portable, upright chest radiograph is compared to chest x-ray and chest CT dated 11/26. The examination is degraded by portable technique and apical lordotic positioning. A right sub clavian central venous infusion port is unchanged in position. The heart is enlarged. There is promin ence of the pulmonary vasculature. Atelectasis is noted at the lung bases. No airspace consolidation or large pleural effusion is identified. No pneumothorax is seen. The skeletal structures are osteope ericka. The bony thorax is grossly intact. IMPRESSION: Cardiomegaly with prominence of the pulmonary vascular. Correlate clinically for evidence of mild congestive failure. ACT 112: Negative or not required by law. Electronically signed by: Jim Rodriguez M.D. 01/19/2020 11:39 AM
--- NOTE | 2020-01-19 13:00 | History & Physical Report ---
Date of Service January 19, 2020 Assessment & Plan (1) Nausea vomiting and diarrhea: Pt is 64 y/o F with PMH left breast cancer, HTN, HLD, asthma presented to ER with complaint of nausea and diarrhea. Patient had chemo on 01/16/2020 (Cytoxan, doxorubicin, and Neulasta). Since has had nausea, dry heaves, diarrhea. Denies hematochezia, hematemesis, melena or fever. In ER afebrile, P: 80, R: 20, BP: 230/98, 199/85, 96% on RA WBC: 37, H/H: 12.7/36.9, BUN: 8, Cr: 0.56, Lipase: 36, LFTs WNL CT ABD/PELVIS:1. Trace free fluid in the cul-de-sac is nonspecific and may be on a reactive basis. 2. Mild colonic diverticulosis without CT evidence of acute diverticulitis. 3. Hepatomegaly and severe hepatic steatosis. 4. Splenomegaly. -Suspect secondary to chemo -In ER given 1L NSS, morphine total 8mg IV, Zofran, Compazine -Stool studies, C-diff pending -Zofran, Compazine prn nausea -Lactate normal -Gentle IVF -Clear liquid diet as tolerated -CBC, CMP in am (2) Leukocytosis: WBC: 37. No fever. DDX: secondary to recent Neulasta CXR: no acute infiltrate -Pt had Neulasta on 01/16/2020 -Lactate normal -blood cultures pending -UA pending -Monitor CBC (3) Hypertension: BP elevated in ER. Pt unable to retain oral BP meds past 2 days -Given dose IV hydralazine -Resume losartan, amlodipine, hydralazine now that Nausea better controlled -Hold lasix for now (4) Breast cancer: Left breast CA with involvement left lymph node Following with Dr Christiansen. Started chemo 12/25/2019. Last chemo on 01/16/2020 (Cytoxan, doxorubicin, and Neulasta) (5) Asthma: No SOB or wheezing -Continue albuterol, Symbicort, montelukast (6) Hyperlipidemia: -Hold meds with current N/V DVT Prophylaxis -Lovenox SQ Full Code as per discussion with pt Follows with Dr Massey for routine care Pt was seen and care coordinated with Dr Joshua. See addendum History of Present Illness Chief Complaint: Nausea, diarrhea Primary Care Provider: Christine Massey DO Pt is 64 y/o F with PMH left breast cancer, HTN, HLD, asthma presented to ER with complaint of nausea and diarrhea. Patient started chemo on 12/25/2019 and reports had some nausea and diarrhea after first treatment which then resolved. Had additional chemo on 01/16/2020 (Cytoxan, doxorubicin, and Neulasta). Patient states since has had nausea, dry heaves. Reports has been unable to take her medications secondary to nausea. She tried Zofran and Compazine at home without relief. Patient reports approximately 10 episodes of loose diarrhea last night. Reports diffuse abdominal aching, worse to left upper quadrant. Denies melena, hematochezia, hematemesis. Denies any fevers. Patient reports has been feeling cold. She reports chronic dry cough, denies any increased cough, denies shortness of breath or chest pain. Denies ill contacts, recent travel. Denies [place], dizziness, syncope, vision changes, neck pain, CP, SOB, orthopnea, palpitations, sore throat, choking, otalgia, rhinorrhea, paresthesias, weakness, extremity weakness, extremity edema, rashes, urinary symptoms. Allergies Allergy/AdvReac Type Severity Reaction Status Date / Time amoxicillin Allergy Severe AUGMENTIN-ITCH,SWELLING,DIFFICULTY Verified 11/26/19 09:25 BREATHING clavulanic acid Allergy Severe AUGMENTIN-ITCH,SWELLING,DIFFICULTY Verified 11/26/19 09:25 BREATHING Penicillins Allergy Severe AUGMENTIN-ITCH,SWELLING,DIFFICULTY Verified 11/26/19 09:25 BREATHING lisinopril Allergy Mild COUGH/Swell Verified 11/26/19 09:25 ing Sulfa (Sulfonamide Allergy Mild RASH Verified 11/26/19 09:25 Antibiotics) Home Medications Home Medications Medication Instructions Recorded Confirmed Type Combigan 1 drp OPHTHALMIC (EYE) BID 08/15/18 01/19/20 History amlodipine 10 mg PO QAM 08/15/18 01/19/20 History losartan 100 mg PO QAM 08/15/18 01/19/20 History ofloxacin 1 drp OPHTHALMIC (EYE) BID 08/15/18 01/19/20 History pantoprazole [Protonix] 40 mg PO QAM PRN 08/15/18 01/19/20 History albuterol sulfate [ProAir HFA] 2 puff INHALATION QID PRN 07/18/19 01/19/20 History cholecalciferol (vitamin D3) 1,000 unit PO QPM 07/18/19 01/19/20 History [Vitamin D3] duloxetine 60 mg PO QAM 07/18/19 01/19/20 History fluticasone propionate [Flonase 2 spray INTRANASAL DAILY PRN 07/18/19 01/19/20 History Allergy Relief] furosemide 20 mg PO QAM PRN 07/18/19 01/19/20 History naproxen sodium 550 mg PO BID PRN 07/18/19 01/19/20 History sucralfate 1 g PO TIDM PRN 07/18/19 01/19/20 History ezetimibe 10 mg PO DAILY 11/26/19 01/19/20 History hydralazine 50 mg PO BID 11/26/19 01/19/20 History montelukast 10 mg PO DAILY 11/26/19 01/19/20 History rosuvastatin 40 mg PO DAILY 11/26/19 01/19/20 History benzonatate 100 mg PO TID PRN 01/19/20 01/19/20 History budesonide-formoterol [Symbicort] 2 puff INHALATION BID 01/19/20 01/19/20 History cyclophosphamide 0 mg IV .Q2W 01/19/20 01/19/20 History dorzolamide 1 drp OPB BID 01/19/20 01/19/20 History doxorubicin [Adriamycin] 0 mg IV .Q2W 01/19/20 01/19/20 History loperamide [Imodium A-D] 2 mg PO Q3H PRN 01/19/20 01/19/20 History ondansetron HCl 8 mg PO UD 01/19/20 01/19/20 History paclitaxel 0 mg IV WK 01/19/20 01/19/20 History pegfilgrastim [Neulasta] 0 mg SUBCUT UD 01/19/20 01/19/20 History prochlorperazine maleate 10 mg PO Q6H PRN 01/19/20 01/19/20 History sennosides [Ex-Lax (sennosides)] 15 mg PO DAILY PRN 01/19/20 01/19/20 History Past Med/Surg History Medical History Anxiety Asthma Breast cancer Carotid stenosis Chronic back pain Depression Fibromyalgia GI bleed hx (noted in [facility] records from 07/2018); no further details available Glaucoma Hyperlipidemia Hypertension Irritable bowel disease Morbid obesity Osteoarthritis Restrictive lung disease Rheumatoid arthritis SOB (shortness of breath) on exertion Stomach ulcer hx (noted in [facility] records from 07/2018); no further details available Vertigo BPPV Surgical History H/O exploratory laparotomy History of bilateral tubal ligation History of section X 1 History of colonoscopy History of dilatation and curettage History of esophagogastroduodenoscopy (EGD) 07/25/19 ([facility]) History of herniorrhaphy MULTIPLE History of nasal septoplasty History of repair of hiatal hernia lap History of repair of rotator cuff RIGHT History of tonsillectomy and adenoidectomy History of tooth extraction History of total abdominal hysterectomy and bilateral salpingo-oophorectomy Family History Father Diabetes Social History Preferred Language: Trinidadian Communication Ability: Effective Route Driver 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 Required: No Beliefs That Will Affect Care: None Current Living Situation: Spouse Other Information That Helps Us Care for You: No Feels Safe at Home: Yes Safety Concerns: Feels Safe At This Time Smoking Status: Never smoker Second Hand Exposure: No ; Hx Alcohol Use: No Hx Substance Use: No Review of Systems Review of Systems: All systems reviewed & are unremarkable except as noted in HPI & below Physical Exam Physical Exam: General: mild distress secondary to nausea, obese Head: normocephalic, atraumatic Eyes: PERRL, EOM's intact, conjunctiva non-injected, anicteric ENT: normal inspection external ears, nose, mucous membranes dry Neck: supple, trachea midline Lungs: clear, no respiratory distress, no wheezing/rhonchi/rales CV: RRR, no murmur, no pretibial edema Abd: normal BS, soft, +diffuse tenderness to palpation, worse to LUQ without rebound or gaurding Ext: no cyanosis, no calf tenderness Neuro: A&O x 3, no focal deficits noted, normal affect Skin: warm, dry Results & Data Vital Signs (Past 12 Hours) Vital Signs Temp Pulse Pulse Resp BP BP Pulse Ox 01/19/20 11:00 84 19 214/103 H 97 01/19/20 09:31 79 18 199/85 H 97 01/19/20 07:48 96 01/19/20 07:37 36.3 C L 80 20 230/98 H 96 Laboratory Results Short CBC 01/19/20 Range/Units 08:00 WBC 37.62 H* (4.8-10.8) K/uL Hgb 12.7 (12.0-16.0) g/dL Hct 36.9 L (37-47) % Plt Count 210 (130-400) K/uL BMP 01/19/20 08:00 Sodium 138 Potassium 3.5 Chloride 104 Carbon Dioxide 29 BUN 8 Creatinine 0.56 L Glucose 136 H Calcium 8.5 Liver Function 01/19/20 Range/Units 08:00 Total Bilirubin 0.6 (0.2-1) mg/dl AST 27 (15-37) U/L ALT 45 (12-78) U/L Alkaline Phosphatase 105 (45-117) U/L Albumin 3.7 (3.4-5.0) gm/dl Diagnostic Findings CXR: IMPRESSION: Cardiomegaly with prominence of the pulmonary vascular. Correlate clinically for evidence of mild congestive failure. CT ABD/PELVIS: IMPRESSION: 1. Trace free fluid in the cul-de-sac is nonspecific and may be on a reactive basis. 2. Mild colonic diverticulosis without CT evidence of acute diverticulitis. 3. Hepatomegaly and severe hepatic steatosis. 4. Splenomegaly. 5. Additional findings as above. Code Status & VTE Plan VTE Prophylaxis Plan VTE Prophylaxis will be ordered: Yes Supervising Physician Co-Signing Physician Notes Pt was seen and examined. Agreed with Lissett LEDESMA exam, assessment and plan. 64 y/o F with PMH left breast cancer, HTN, HLD, asthma presented to ER with complaint of nausea and diarrhea. Pt said that she had chemotherapy on 01/16, since then she has been having recurrent episode of vomiting associated with nausea and diarrhea. She said that she had multiple episodes of diarrhea last night. She said that she has not been eating or taking her meds because she cannot keep anything on her stomach. She said that she had similar problem (N/V/D) after her last chemo on 12/25 but that was mild and last only a few days. Currently she said that she feels a little better. CT abd/pelvis showed trace free fluid in the cul-de-sac is nonspecific and may be on a reactive basis. Mild colonic diverticulosis without CT evidence of acute diverticulitis. received IV fluid in the ER. Will continue gentle hydration with additional 1L IVF. Will send stool studies and C-diff. Continue IV antiemetic with Zofran, Compazine prn nausea. Will monitor BMP and CBC closely. Continue monitor closely. MD Joshua (1) Leukocytosis Leukocytosis type: unspecified Qualified Code(s): D72.829 - Elevated white blood cell count, unspecified
[2020-01-19] MEDS ORDERED: FLUTICASONE PROPIONATE NA SPR 16 GM BTL NAE PRN (13:28)
[2020-01-19] MEDS ORDERED: ACETAMINOPHEN 325 MG TAB PO PRN (13:28)
[2020-01-19] MEDS ORDERED: SUCRALFATE 1 GM TAB PO PRN (13:28)
[2020-01-19] MEDS ORDERED: D5NSS + 20MEQ KCL 20 MEQ/1,000 ML BAG IV SCH (13:28)
[2020-01-19] MEDS ORDERED: LOSARTAN POTASSIUM 50 MG TAB PO SCH (13:28)
[2020-01-19] MEDS ORDERED: ONDANSETRON INJ 2 MG/ML 2 ML VIAL IV PRN (13:28)
[2020-01-19] MEDS ORDERED: PANTOprazole 40 MG TAB PO PRN (13:28)
[2020-01-19] MEDS ORDERED: MoRPHine SULFATE 2 MG/ML CARP IV PRN (13:32)
[2020-01-19] MEDS ORDERED: ALBUTEROL HFA 8 GM INHALER INH PRN (13:40)
[2020-01-19] MEDS: PROCHLORPERAZINE 10 MG in SYRINGE 8 ML IV PRN ×2 (14:11→20:21)
[2020-01-19 14:57] LABS: Appearance Urine Clear (Clear); Bilirubin Urine Negative (Negative); Blood Urine Negative (Negative); Color Urine Yellow; Glucose Urine UA Negative (Negative); Ketones Urine 1+ (Negative); Leukocyte Esterase Urine Negative (Negative); Nitrite Urine Negative (Negative); Protein Urine Negative (Negative); Specific Gravity Urine > 1.045 (1.000-1.030); Urobilinogen Urine Negative (Negative); pH Urine 6.5 (4.5-7.5)
[2020-01-19] MEDS ORDERED: ENOXAPARIN INJ 40 MG/0.4 ML SYR SQ SCH (16:00)
[2020-01-19] MEDS: AMLODIPINE BESYLATE 5 MG TAB PO SCH (16:00)
[2020-01-19] MEDS ORDERED: HydrALAZINE TAB 50 MG TAB PO SCH (21:00)
[2020-01-19] MEDS ORDERED: MONTELUKAST SODIUM 10 MG TABLET PO SCH (21:00)
[2020-01-19] MEDS ORDERED: BUDESONIDE/FORMOTEROL FUMARATE 160/4.5 60 PUFFS/INHALER INH SCH (21:00)
[2020-01-19] MEDS ORDERED: BRIMONIDINE TIMOLOL OP SCH (21:00)
[2020-01-19] MEDS: TIMOLOL MALEATE 0.5% OP SOLN 5 ML BTL OP SCH (21:20)
[2020-01-19] MEDS: DORZOLAMIDE HCL 2% OPH SOLN 10 ML BTL OPB SCH (21:21)
[2020-01-19] MEDS: BRIMONIDINE TARTRATE 0.2% 5ML OP SCH (21:22)
[2020-01-19] MEDS: OFLOXACIN 0.3% OP SOLN 5 ML BTL OP SCH (21:22)
[2020-01-20] MEDS ORDERED: HydrALAZINE TAB 50 MG TAB PO SCH (04:45)
[2020-01-20] MEDS: LOSARTAN POTASSIUM 50 MG TAB PO SCH ×3 (05:03→08:19)
[2020-01-20 06:47] LABS: Hematocrit (blood only) 35.7 % (37-47); Hemoglobin 12.1 g/dL (12.0-16.0); Mean Corpuscular Hemoglobin 31.7 pg (25-34); Mean Corpuscular Hgb Conc 33.9 g/dL (32-36); Mean Corpuscular Volume 93.5 fL (80-100); Mean Platelet Volume 10.2 fL (7.4-10.4); Platelet Count 195 K/uL (130-400); RDW Coefficient of Variation 14.1 % (11.5-14.5); Red Blood Count 3.82 M/uL (4.2-5.4); White Blood Count 37.54 K/uL (4.8-10.8)
[2020-01-20 06:50] LABS: ANC (manual) 35.25 K/uL (1.4-6.5); Dohle Bodies 1+; Lymphocytes # (manual) 2.29 K/uL (1.2-3.4); Lymphocytes % (manual) 6.1 %; Neutrophils # (manual) 35.25 K/uL (1.4-6.5); Neutrophils % (manual) 93.9 %; Platelet Estimate Normal (Normal)
[2020-01-20 06:53] LABS: Albumin Level 3.4 gm/dl (3.4-5.0); BUN Creatinine Ratio 11.4 (10-20); Calcium 8.8 mg/dl (8.5-10.1); Creatinine Clr Calc Pharmacy 124.3 ml/min; Est GFR (African American) 112.3; Est GFR (Non-African American) 96.9; Magnesium 2.3 mg/dl (1.8-2.4); Potassium 3.5 mmol/L (3.5-5.1)
[2020-01-20 06:55] LABS: Albumin Globulin Ratio 0.9 (0.9-2); Bilirubin,Total 0.6 mg/dl (0.2-1); Globulin 3.7 gm/dl (2.5-4.0); Total Protein 7.1 gm/dl (6.4-8.2)
[2020-01-20] MEDS: AMLODIPINE BESYLATE 5 MG TAB PO SCH (08:20)
[2020-01-20] MEDS: TIMOLOL MALEATE 0.5% OP SOLN 5 ML BTL OP SCH (08:22)
[2020-01-20] MEDS: OFLOXACIN 0.3% OP SOLN 5 ML BTL OP SCH (08:22)
[2020-01-20] MEDS: DORZOLAMIDE HCL 2% OPH SOLN 10 ML BTL OPB SCH (08:23)
[2020-01-20] MEDS: BRIMONIDINE TARTRATE 0.2% 5ML OP SCH (08:23)
[2020-01-20] MEDS ORDERED: DULOXETINE HCL 60 MG CAP PO SCH (09:00)
[2020-01-20] MEDS ORDERED: FLUTICASONE/VILANTEROL 200/25MCG 14 PUFFS/INHALER INH SCH (09:00)
[2020-01-20] MEDS: PROCHLORPERAZINE 10 MG in SYRINGE 8 ML IV PRN (10:11)
--- NOTE | 2020-01-20 14:07 | Hospitalist Progress Note ---
Date of Service January 20, 2020 Assessment & Plan (1) Nausea vomiting and diarrhea: Present on admission with nausea and vomiting associated with recurrent diarhea Possible related to the recent chemotherapy CT abd/plevis showed trace free fluid in the cul-de-sac is nonspecific and may be on a reactive basis. Mild colonic diverticulosis without CT evidence of acute diverticulitis. Hepatomegaly and severe hepatic steatosis. WBC elevated Tolerated diet Diarrhea and vomiting resolved Blood cx no growth so far Clinically improves significantly Pt is very anxious to go home today I explained to her that her WBC elevated case discussed with Oncology dr. Butts and said that the Elevated WBC is due to the Nuelasta (2) Leukocytosis: WBC: 37. No fever. DDX: secondary to recent Neulasta CXR showed no acute infiltrate Pt had Neulasta on 01/16/2020 Lactate normal and afebrile blood cultures no growth so far UA showed no UTI Will need to check CBC in 1 week (3) Hypertension: BP elevated. Was not able to take her BP med in the last few days due to nausea and vomiting Outpatient BP med resume Continue monitor BP (4) Breast cancer: Left breast CA with involvement left lymph node Following with Dr Butts. Started chemo 12/25/2019. Last chemo on 01/16/2020 (Cytoxan, doxorubicin, and Neulasta) case discussed with Dr. butts (5) Asthma: No SOB or wheezing Continue albuterol, Symbicort, montelukast (6) Hyperlipidemia: Resume statin on discharge DVT Prophylaxis Lovenox SQ CODE STATUS Full Code Disposition Follow up with your primary care provider dr. Massey Follow up with your oncology Dr. Butts Admission and Anticipated Discharge Date Admission Date: January 19, 2020 Subjective Pt was seen and examined Lying in bed with no distress Pt said that she feels fine She said that she does not have any diarrhea and vomiting since yesterday She tolerated her diet today She is very anxious to go home today I told her that her blood cx is pending and WBC elevated She said that her daughter is a nurse and she lives close to the hospital She said that if she develops any fever or if blood cx positive, she will come back to the hospital Denies any chest pain, palpitation, dizziness and SOB Physical Exam Physical Exam: General- No acute distress Head- atraumatic Eyes- PERRL, EOMI, ENT- oropharynx clear Neck- supple, no JVD Lungs- clear to auscultation Heart- regular rhythm Abdomen- normal bowel sounds, soft, nontender Extremities- no calf tenderness Neuro- alert, oriented x 3; PERRL, EOMI; no facial palsy; no dysarthria Skin- warm & dry Results & Data ([facility]) Vital Signs (Past 12 Hours) Vital Signs Temp Pulse Pulse Resp BP Pulse Ox 01/20/20 10:58 36.7 C 81 20 160/73 H 93 01/20/20 07:28 100 H 01/20/20 07:11 36.8 C 84 18 161/74 H 92 01/20/20 04:35 168/87 H 01/20/20 04:34 179/83 H 01/20/20 04:00 36.7 C 86 20 179/77 H 90 (1) Leukocytosis Leukocytosis type: unspecified Qualified Code(s): D72.829 - Elevated white blood cell count, unspecified
--- NOTE | 2020-01-24 00:13 | Discharge Summary ---
Date of Service January 20, 2020 Admission HPI Per Admitting Provider Pt is 64 y/o F with PMH left breast cancer, HTN, HLD, asthma presented to ER with complaint of nausea and diarrhea. Patient started chemo on 12/25/2019 and reports had some nausea and diarrhea after first treatment which then resolved. Had additional chemo on 01/16/2020 (Cytoxan, doxorubicin, and Neulasta). Patient states since has had nausea, dry heaves. Reports has been unable to take her medications secondary to nausea. She tried Zofran and Compazine at home without relief. Patient reports approximately 10 episodes of loose diarrhea last night. Reports diffuse abdominal aching, worse to left upper quadrant. Denies melena, hematochezia, hematemesis. Denies any fevers. Patient reports has been feeling cold. She reports chronic dry cough, denies any increased cough, denies shortness of breath or chest pain. Denies ill contacts, recent travel. Denies LAGUNAS, dizziness, syncope, vision changes, neck pain, CP, SOB, orthopnea, palpitations, sore throat, choking, otalgia, rhinorrhea, paresthesias, weakness, extremity weakness, extremity edema, rashes, urinary symptoms. Admission Exam Per Admitting Provider General: mild distress secondary to nausea, obese Head: normocephalic, atraumatic Eyes: PERRL, EOM's intact, conjunctiva non-injected, anicteric ENT: normal inspection external ears, nose, mucous membranes dry Neck: supple, trachea midline Lungs: clear, no respiratory distress, no wheezing/rhonchi/rales CV: RRR, no murmur, no pretibial edema Abd: normal BS, soft, +diffuse tenderness to palpation, worse to LUQ without rebound or gaurding Ext: no cyanosis, no calf tenderness Neuro: A&O x 3, no focal deficits noted, normal affect Skin: warm, dry Principal Diagnosis Nausea vomiting and diarrhea: Leukocytosis: Hypertension: Breast cancer: Asthma: Hyperlipidemia: Discharge Exam General- No acute distress Head- atraumatic Eyes- PERRL, EOMI, ENT- oropharynx clear Neck- supple, no JVD Lungs- clear to auscultation Heart- regular rhythm Abdomen- normal bowel sounds, soft, nontender Extremities- no calf tenderness Neuro- alert, oriented x 3; PERRL, EOMI; no facial palsy; no dysarthria Skin- warm & dry Discharge Data Allergies Allergy/AdvReac Type Severity Reaction Status Date / Time amoxicillin Allergy Severe AUGMENTIN-ITCH,SWELLING,DIFFICULTY Verified 11/26/19 09:25 BREATHING clavulanic acid Allergy Severe AUGMENTIN-ITCH,SWELLING,DIFFICULTY Verified 11/26/19 09:25 BREATHING Penicillins Allergy Severe AUGMENTIN-ITCH,SWELLING,DIFFICULTY Verified 11/26/19 09:25 BREATHING lisinopril Allergy Mild COUGH/Swell Verified 11/26/19 09:25 ing Sulfa (Sulfonamide Allergy Mild RASH Verified 11/26/19 09:25 Antibiotics) Consultations 01/19/20 11:07 ED Decision to Admit Stat 01/19/20 13:28 Consult Case Management - Discharge Planning Routine Ordered Studies 01/19/20 09:42 CT abd pelvis IV con only Stat CT SCAN OF THE ABDOMEN AND PELVIS WITH IV CONTRAST CLINICAL HISTORY: Generalized abdominal pain. COMPARISON STUDY: Abdominal CT dated 10/05/2017. TECHNIQUE: Following the IV administration of 94 cc of Optiray 320, CT scan of the abdomen and pelvis is performed from the lung bases to the proximal femora. Images are reviewed in the axial, sagittal, and coronal planes. IV contrast was administered without complication. A dose lowering technique was utilized adhering to the principles of ALARA. CT DOSE: 1755.66 mGy.cm FINDINGS: Lung bases: The heart is normal in size and without pericardial effusion. The lung bases are clear noting dependent atelectasis. There is a small hiatal hernia. Liver: The contrast-enhanced liver is enlarged, measuring 24.5 cm in length. The liver demonstrates diffusely diminished attenuation consistent with severe hepatic steatosis. There is minimal central intrahepatic biliary ductal dilatation. The hepatic veins and portal veins are patent. Gallbladder: Surgically absent noting clips in the gallbladder fossa. Spleen: The spleen is enlarged measuring 14.5 cm in length. Pancreas: Unremarkable. Adrenal glands: Unremarkable. Kidneys: The contrast enhanced kidneys are normal in size and without hydronephrosis. The kidneys enhance symmetrically. Abdominal vasculature: The abdominal aorta is normal in course and caliber noting mild to moderate atherosclerotic calcification. Bowel: There is mild colonic diverticulosis without CT evidence of acute diverticulitis. No bowel obstruction is seen. The appendix is not identified and reported surgically absent. Peritoneum: There is no intraperitoneal free air or abdominal ascites. There is evidence of previous ventral hernia repair. There is a fat-containing hernia in the left ventral pelvis seen on image #354. Lymphadenopathy: None. Pelvic viscera: The bladder is normal as visualized. The uterus is surgically absent. No adnexal lesion is seen. Trace free fluid is noted in the cul-de-sac. Skeletal structures: The skeletal structures are osteopenic. Mild lumbosacral spondylosis is observed. No lytic or blastic lesions are seen. IMPRESSION: 1. Trace free fluid in the cul-de-sac is nonspecific and may be on a reactive basis. 2. Mild colonic diverticulosis without CT evidence of acute diverticulitis. 3. Hepatomegaly and severe hepatic steatosis. 4. Splenomegaly. 5. Additional findings as above. ACT 112: Negative or not required by law. Electronically signed by: Jim Rodriguez M.D. 01/19/2020 10:24 AM Dictated: 01/19/20 1018 Transcribed: 01/19/20 1018 SINGLE VIEW CHEST CLINICAL HISTORY: Leukocytosis. FINDINGS: An AP, portable, upright chest radiograph is compared to chest x-ray and chest CT dated 11/26/2019. The examination is degraded by portable technique and apical lordotic positioning. A right subclavian central venous infusion port is unchanged in position. The heart is enlarged. There is prominence of the pulmonary vasculature. Atelectasis is noted at the lung bases. No airspace consolidation or large pleural effusion is identified. No pneumothorax is seen. The skeletal structures are osteopenic. The bony thorax is grossly intact. IMPRESSION: Cardiomegaly with prominence of the pulmonary vascular. Correlate clinically for evidence of mild congestive failure. ACT 112: Negative or not required by law. Electronically signed by: Jim Rodriguez M.D. 01/19/2020 11:39 AM Dictated: 01/19/20 1137 Transcribed: 01/19/20 1137 Hospital Course (1) Nausea vomiting and diarrhea: Present on admission with nausea and vomiting associated with recurrent diarhea Possible related to the recent chemotherapy CT abd/plevis showed trace free fluid in the cul-de-sac is nonspecific and may be on a reactive basis. Mild colonic diverticulosis without CT evidence of acute diverticulitis. Hepatomegaly and severe hepatic steatosis. WBC elevated Tolerated diet Diarrhea and vomiting resolved Blood cx no growth so far Clinically improves significantly Pt is very anxious to go home today I explained to her that her WBC elevated case discussed with Oncology dr. Butts and said that the Elevated WBC is due to the Nuelasta (2) Leukocytosis: WBC: 37. No fever. DDX: secondary to recent Neulasta CXR showed no acute infiltrate Pt had Neulasta on 01/16/2020 Lactate normal and afebrile blood cultures no growth so far UA showed no UTI Will need to check CBC in 1 week (3) Hypertension: BP elevated. Was not able to take her BP med in the last few days due to nausea and vomiting Outpatient BP med resume Continue monitor BP (4) Breast cancer: Left breast CA with involvement left lymph node Following with Dr Butts. Started chemo 12/25/2019. Last chemo on 01/16/2020 (Cytoxan, doxorubicin, and Neulasta) case discussed with Dr. butts (5) Asthma: No SOB or wheezing Continue albuterol, Symbicort, montelukast (6) Hyperlipidemia: Resume statin on discharge DVT Prophylaxis Lovenox SQ CODE STATUS Full Code Disposition Follow up with your primary care provider dr. Massey Follow up with your oncology Dr. Butts Total Time Total Time Spent Total Time Spent (In Minutes): 35 minutes Total Time Includes: Examination of the Patient, Discharge Planning, Medication Reconciliation, Communication With Other Providers and Other Discharge Plan Discharge Items Patient Disposition: Home - Self-Care Reason For Visit: NAUSEA DIARRHEA Discharge Diagnosis: Nausea vomiting and diarrhea: Leukocytosis: Hypertension: Breast cancer: Asthma: Hyperlipidemia: Activity: Resume your previous activity Non-emergency contact: Primary Care Provider and Oncologist Call non-emergency contact if: you have any medication questions and your temperature is above 101 Follow-up/Referrals: Christine Massey DO [Primary Care Provider] - 01/25/20 10:45 am Diet: Heart Healthy Addtl Attending Provider Instructions: Follow up with your primary care provider Dr. Massey in 1 week Follow up with your Oncology Dr. Butts Your white blood cell count elevated (Mostly due to the Neulasta), please check your CBC in 1 week Monitor your blood pressure and bring your blood pressure log at your next appointment with your physician Seek medical attention if you develop any fever Pending Studies at Discharge: Yes Studies:: Final blood culture Stand-Alone Forms: My [employer], Smoking Cessation Medications and DC Order Prescriptions: Continued montelukast 10 mg tablet 10 mg PO DAILY RF: 0 hydralazine 50 mg tablet 50 mg PO BID RF: 0 ezetimibe 10 mg tablet 10 mg PO DAILY RF: 0 rosuvastatin 40 mg tablet 40 mg PO DAILY RF: 0 ondansetron HCl 8 mg tablet 8 mg PO UD RF: 0 loperamide [Imodium A-D] 2 mg Tablet 2 mg PO Q3H PRN (Reason: .) RF: 0 benzonatate 100 mg capsule 100 mg PO TID PRN (Reason: Cough) RF: 0 Ex-Lax (sennosides) 15 mg Tablet 15 mg PO DAILY PRN (Reason: .) RF: 0 dorzolamide 2 % drops 1 drp OPB BID RF: 0 Neulasta 6 mg/0.6 mL syringe, w/ wearable injector 0 mg SUBCUT UD RF: 0 cyclophosphamide 1 gram Recon Soln 0 mg IV .Q2W RF: 0 paclitaxel 6 mg/mL Concentrate 0 mg IV WK RF: 0 doxorubicin [Adriamycin] 10 mg/5 mL Solution 0 mg IV .Q2W RF: 0 prochlorperazine maleate 10 mg tablet 10 mg PO Q6H PRN (Reason: Nausea And Vomiting) RF: 0 budesonide-formoterol [Symbicort] 160-4.5 mcg/actuation HFA aerosol inhaler 2 puff INHALATION BID RF: 0 ofloxacin 0.3 % Drops 1 drp OPHTHALMIC (EYE) BID RF: 0 amlodipine 10 mg Tablet 10 mg PO QAM RF: 0 pantoprazole [Protonix] 40 mg Tablet,Delayed Release (Dr/Ec) 40 mg PO QAM PRN (Reason: Acid Reflux) RF: 0 losartan 100 mg Tablet 100 mg PO QAM RF: 0 Combigan 0.2-0.5 % Drops 1 drp OPHTHALMIC (EYE) BID RF: 0 sucralfate 1 gram Tablet 1 g PO TIDM PRN (Reason: Abdominal Discomfort) RF: 0 naproxen sodium 550 mg Tablet 550 mg PO BID PRN (Reason: Pain) RF: 0 furosemide 20 mg Tablet 20 mg PO QAM PRN (Reason: Fluid Retention) RF: 0 albuterol sulfate [ProAir HFA] 90 mcg/actuation Hfa Aerosol Inhaler 2 puff INHALATION QID PRN (Reason: Shortness Of Breath) RF: 0 fluticasone propionate [Flonase Allergy Relief] 50 mcg/actuation [place] spension 2 spray INTRANASAL DAILY PRN (Reason: Allergy Symptoms) RF: 0 cholecalciferol (vitamin D3) [Vitamin D3] 1,000 unit Capsule 1,000 unit PO QPM RF: 0 duloxetine 60 mg Capsule,Delayed Release(Dr/Ec) 60 mg PO QAM RF: 0 Discharge Orders: Discharge Order (Routine); Ordered 01/20/20 Ordered By: Jerod Lewis Admission Data Admit Date/Time: 01/19/20 11:37 Attending Provider: Jerod Lewis Admit Provider: Jerod Lewis Primary Care Provider: Christine Massey Other Providers: Jerod Lewis Other Interventions: Discharge Summary Assessment (RN) Last Done: 01/20/20 14:29 DC Date/Time DO NOT enter until pt leaves facility: 01/20/20 14:45
== END 2020-01-20 14:45 | disposition home or self-care (01) | DRG 392 ==
LOC: ED 07:31 → 2W 11:37

== ENCOUNTER 2020-07-07 07:56 | Observation (INO) ==
--- NOTE | 2020-07-01 10:30 | PAT Medication Instructions ---
Medication Instructions Date of Service July 01, 2020 Home Medications [place] 1 drp OPHTHALMIC (EYE) BID amlodipine 10 mg PO QAM losartan 100 mg PO QAM pantoprazole [Protonix] 40 mg PO QAM PRN albuterol sulfate [ProAir HFA] 2 puff INHALATION QID PRN duloxetine 60 mg PO QAM fluticasone propionate [Flonase Allergy Relief] 2 spray INTRANASAL DAILY PRN furosemide 20 mg PO QAM PRN naproxen sodium 550 mg PO BID PRN ezetimibe 10 mg PO HS hydralazine 50 mg PO BID montelukast 10 mg PO QAM dorzolamide 1 drp OPB BID ondansetron HCl 8 mg PO QID ASK your surgeon for instructions naproxen sodium 550 mg PO BID PRN DO NOT take the morning of surgery losartan 100 mg PO QAM furosemide 20 mg PO QAM PRN montelukast 10 mg PO QAM Take morning of surgery With a small sip of water, OTHERWISE NOTHING TO EAT OR DRINK AFTER MIDNIGHT: Nupur 1 drp OPHTHALMIC (EYE) BID amlodipine 10 mg PO QAM pantoprazole [Protonix] 40 mg PO QAM PRN (if needed) albuterol sulfate [ProAir HFA] 2 puff INHALATION QID PRN (use if needed; please bring with you to hospital day of surgery if possible) duloxetine 60 mg PO QAM fluticasone propionate [Flonase Allergy Relief] 2 spray INTRANASAL DAILY PRN (if needed) hydralazine 50 mg PO BID dorzolamide 1 drp OPB BID ondansetron HCl 8 mg PO QID Take evening before surgery uNpur 1 drp OPHTHALMIC (EYE) BID pantoprazole [Protonix] 40 mg PO QAM PRN (if needed) albuterol sulfate [ProAir HFA] 2 puff INHALATION QID PRN (if needed) fluticasone propionate [Flonase Allergy Relief] 2 spray INTRANASAL DAILY PRN (if needed) furosemide 20 mg PO QAM PRN (if needed) ezetimibe 10 mg PO HS hydralazine 50 mg PO BID dorzolamide 1 drp OPB BID ondansetron HCl 8 mg PO QID Other Notes If you have any questions please call us at [phone] or [phone] or [phone] or [phone]
--- NOTE | 2020-07-02 10:35 | Anesthesiology Consultation ---
Date of Service July 02, 2020 Assessment & Plan (1) Encounter for pre-operative examination: - Vascular office visit: 06/09/20: "doing well from a vascular standpoint. L carotid stenosis stable and asymptomatic. No contralateral disease. Continue daily ASA." F/U in 1 year. *Per PAT assessment on 07/02: Travel screen- negative. Uses PPE. No known COVID- 19 positive contacts. No current COVID-19 related symptoms. No hx of COVID-19 testing in past 30 days. Surgeon arranging preop COVID testing (patient states being done 07/02 at [facility]). Awaiting results. - S/P A-port insertion: 11/26/19: MAC sedation at [facility]. Patient discharged home same day but returned to [facility] ER later that day with complaints of cough/dyspnea. Acute pulmonary edema on CXR/CT. Per inpatient hospitalist note "Does not appear that patient received a large volume of IVF during procedure today however she did receive propofol which has a listed side effect of pulmonary edema.. Aspiration considered however patient had marked improvement in symptoms after receiving IV Lasix in ED; lung sounds currently clear, saturating well on room air." ECHO updated 11/28/19 which was unremarkable. Inpatient cardiology evaluation on 11/28/19 "My clinical exam today would suggest that the patient's pulmonary edema has resolved. I believe this is noncardiogenic pulmonary edema perhaps from IV fluids given during her procedure and on rare occasions propofol. I do not believe any additional cardiac testing is indicated." Patient discharged home without issue. Chart Review Chart Review: Acceptable Risk for Surgery (pending evaluation AM DOS) and Patient seen in Pre Admission Testing Teaching & Discussion Pre-Anesthesia Teaching/Discussion Notes: Instructed NPO after midnight before surgery,except medications with 15 cc of water. Medication instructions provided according to the PAT guidelines. History Surgery Operation Date: 07/07/20 08:50 Proposed Procedures p Left Axillary [place] Lymph Node Biopsy, Left Axillary [place] Mortgage Accounting Clerk Biopsy, Possible Left Axillary Lumph Node Dissection; - Homar Sarah MD s Bilateral Mastectomies - Homar Sarah MD Height/Weight Height: 5 ft 4 in Weight: 115.4 kg Allergies Allergy/AdvReac Type Severity Reaction Status Date / Time amoxicillin Allergy Severe Augmentin- Verified 07/01/20 10:25 itchy, swelling, dyspnea clavulanic acid Allergy Severe Augmentin- Verified 07/01/20 10:25 itchy, swelling, dyspnea Penicillins Allergy Severe Augmentin- Verified 07/01/20 10:25 itchy, swelling, dyspnea lisinopril Allergy Mild cough/swell Verified 07/01/20 10:25 ing Sulfa (Sulfonamide Allergy Mild Rash Verified 07/01/20 10:25 Antibiotics) propofol Allergy cough, Verified 07/02/20 11:06 dyspnea > pulmonary edema (see comments) Medications Home Medications Medication Instructions Recorded Confirmed Last Taken Combigan 1 drp OPHTHALMIC (EYE) BID 08/15/18 06/30/20 01/17/20 amlodipine 10 mg PO QAM 08/15/18 06/30/20 01/17/20 losartan 100 mg PO QAM 08/15/18 06/30/20 01/17/20 pantoprazole [Protonix] 40 mg PO QAM PRN 08/15/18 06/30/20 11/24/19 08:00 albuterol sulfate [ProAir HFA] 2 puff INHALATION QID PRN 07/18/19 06/30/20 06/24/19 duloxetine 60 mg PO QAM 07/18/19 06/30/20 01/17/20 fluticasone propionate [Flonase 2 spray INTRANASAL DAILY PRN 07/18/19 06/30/20 Unknown Allergy Relief] furosemide 20 mg PO QAM PRN 07/18/19 06/30/20 Unknown naproxen sodium 550 mg PO BID PRN 07/18/19 06/30/20 11/25/19 12:00 ezetimibe 10 mg PO HS 11/26/19 06/30/20 01/17/20 hydralazine 50 mg PO BID 11/26/19 06/30/20 01/17/20 montelukast 10 mg PO QAM 11/26/19 06/30/20 01/17/20 dorzolamide 1 drp OPB BID 01/19/20 06/30/20 01/17/20 ondansetron HCl 8 mg PO QID 01/19/20 06/30/20 01/17/20 Past Medical History Medical History (Updated 07/02/20 @ 11:09 by Brandy Reynolds) Anemia hgb stable in the 9-10 range per chart review Anxiety Asthma stable Breast cancer completed chemo 05/22/20 Carotid stenosis follows with vascular ([facility]) Chronic back pain Depression Fibromyalgia GI bleed 12/23 stomach ulcer Glaucoma History of migraine Hyperlipidemia Hypertension Irritable bowel disease Morbid obesity Osteoarthritis Restrictive lung disease Rheumatoid arthritis stable without medical therapy Stomach ulcer 1998 Vertigo hx BPPV Exercise / Class Metabolic Activity III < 4 Walking/Shop/Light housework Past Family History Family History Father Diabetes Past Surgical History Surgical History H/O exploratory laparotomy History of appendectomy History of bilateral tubal ligation History of section X 1 History of cholecystectomy History of colonoscopy History of dilatation and curettage History of esophagogastroduodenoscopy (EGD) 07/25/19 ([facility]) History of herniorrhaphy x10 History of hysterectomy History of nasal septoplasty History of removal of Port-a-Cath A-port insertion: 11/26/19: MAC sedation at [facility] History of repair of hiatal hernia lap History of repair of rotator cuff RIGHT History of tonsillectomy and adenoidectomy History of tooth extraction wisdom teeth History of total abdominal hysterectomy and bilateral salpingo-oophorectomy Past Anesthesia History No Family Hx of Anesthesia Complications and Other (post-op pulmonary edema after A-port insertion 11/2019 (? related to propofol/IVF)) History of PONV No Hx of PONV and Hx of Motion Sickness (occasional) Social History Smoking Status: Former smoker Do You Dip or Chew Tobacco: No Smoking End Date: Quit 32 years ago Hx Alcohol Use: Yes Alcohol type: wine alcohol intake frequency: holidays/special occasions only Hx Substance Use: No substance use type: does not use Review of Systems Patient denies chest pain, shortness of breath, fever, chills, cough, wheezing, palpitations. Physical Exam Vital Signs VITALS BP 112/74 P 84 TEMP 98.4 SP02 95%RA RESP 18 PHYSICAL Full neck and c-spine range of motion. Full TMJ range of motion. TMD 3 finger breaths Mallampati Score 3 Dentition: lower front chipped tooth, 3 caps (including upper/lower front teeth) Lungs: clear throughout to auscultation Cardiac: regular rate and rhythm, no murmurs noted Spine: normal Carotid arteries: negative bruit Extremities: no edema Testing Laboratory Results 06/04/20 WBC 10.67 H/H 9.9/32.2 PLATELETS 281 SODIUM 141 POTASSIUM 3.8 CHLORIDE 103 CO2 26 BUN 13 CREATININE 0.6 GLUCOSE 129 Electrocardiogram Date: 06/04/20 NSR at 84bpm. Possible LAE. LAD. No significant change compared to 06/06/19 per funds transfer clerk review. Chest X-Ray Date: 06/10/20 Findings: + NAD Echocardiogram Date: 11/28/19 LVEF 60-65%. No RWMA. Mild cLVH. Grade I DD. No significant valvular disease. Stress Test Date: 01/09/15 Type: DSE Stress echo/ekg negative for inducible ischemia. 89% MPHR. Chest discomfort reproduced at peak infusion. Mild cLVH. EF 60-65%. Grade I DD. Mild mitral annular calcification. Other Testing Carotid artery duplex: 06/09/20: B/L antegrade flow. CHRISTOPHER <50% ICA stenosis. LICA 50-69% ICA stenosis.
[~2020-07-07 07:56] MED LIST changes: -BSP/10 PO; +CLINDAMYCIN 900 MG in DEXTROSE 5% 50 ML IV SCH; -CTP1X PO; -DORZ2SOL17 OPB; -FURO40TA3 PO; -HYDR25TA5 PO; -HYT/2 PO; +LACTATED RINGER'S 1,000 ML IV SCH; -LINA1CAP PO; -LOSA100T65 PO; -MELO15TA4 PO; -NRV/10 PO; -NXM/40 PO; -PANT40TA2 PO; -TMPOPS15 OPB; -VORT1TAB3 PO
[2020-07-07] MEDS ORDERED: ATROPINE SULFATE 0.1 MG/ML 10ML SYR IV PRN (08:03)
[2020-07-07] MEDS ORDERED: fentaNYL citrate 100 MCG/2 ML VIAL IV PRN (08:03)
[2020-07-07] MEDS ORDERED: LABETALOL HCL IV 5 MG/ML 20ML IV PRN (08:03)
[2020-07-07] MEDS ORDERED: PHENYLEPHRINE 100MCG/ML 5ML SYR IV PRN (08:03)
[2020-07-07] MEDS ORDERED: MEPERIDINE HCL 25 MG/ML CARP/VIAL IV PRN (08:03)
[2020-07-07] MEDS ORDERED: ONDANSETRON INJ 2 MG/ML 2 ML VIAL IV PRN (08:03)
[2020-07-07] MEDS ORDERED: HYDROmorphone INJ 1 MG/ML SYRINGE IV PRN (08:03)
[2020-07-07] MEDS ORDERED: ePHEDrine sulfate 50 MG/ML AMP IV PRN (08:03)
[2020-07-07] MEDS ORDERED: LIDOCAINE HCL 2% 2 ML VIAL/AMP(20MG/ML) INFIL ONE (08:14)
[2020-07-07] MEDS ORDERED: PROPOFOL IV EMULSION 10 MG/ML 20 ML VIAL IV ONE (08:14)
[2020-07-07] MEDS ORDERED: fentaNYL citrate 100 MCG/2 ML VIAL ONE ×2 (08:15→10:43)
[2020-07-07] MEDS ORDERED: MIDAZOLAM HCL 1 MG/ML 2ML VIAL ONE (08:15)
[2020-07-07] MEDS ORDERED: ONDANSETRON INJ 2 MG/ML 2 ML VIAL ONE ×2 (08:15→10:08)
[2020-07-07] MEDS ORDERED: ROCURONIUM BROMIDE 10 MG/ML 5 ML VIAL IV ONE (08:42)
[2020-07-07] MEDS ORDERED: ISOSULFAN BLUE 10 MG/ML VIAL 5 ML ONE (09:32)
--- NOTE | 2020-07-07 09:47 | Nuclear Medicine Report ---
LYMPHOSCINTIGRAPHY CLINICAL HISTORY: Left-sided breast cancer. PROCEDURE: Using standard sterile technique, 4 intradermal and one deep injection of 0.485 mCi of Lym phoseek was placed in the left breast. The patient tolerated the procedure well. There were no immedi ate complications. The patient was subsequently transported to the surgical suite. No imaging was obt ained at the referring physician's request. IMPRESSION: Injection of 0.485 mCi of Lymphoseek in the left breast. ACT 112: Negative or not required by law. Electronically signed by: Joshua Garber M.D. 07/07/2020 9:46 AM
--- NOTE | 2020-07-07 09:52 | History & Physical Bridge Note ---
Date of Service July 07, 2020 History & Physical Bridge Note I have examined the patient, reviewed the History & Physical and in the interval since the performance of the History & Physical I have noted the following changes of clinical significance: no changes noted
[2020-07-07] MEDS ORDERED: SUCCINYLCHOLINE 100MG/5ML SYR IV ONE ×2 (10:08)
[2020-07-07] MEDS ORDERED: DEXAMETHASONE SOD INJ 4 MG/ML VIAL ONE (10:08)
[2020-07-07] MEDS ORDERED: HYDROmorphone INJ 2 MG/ML SYR/VIAL ONE (10:45)
[2020-07-07] MEDS ORDERED: ACETAMINOPHEN 1000 MG/100 ML IV IV ONE (12:24)
--- NOTE | 2020-07-07 14:43 | Post Operative Brief Note ---
Immediate Post Op Note v1 Date of Surgery July 07, 2020 Pre & Post Diagnosis Operation Date: 07/07/20 10:00 Pre-Op Diagnosis: Carcinoma of Left Breast Metastatic to Left Axillary Lymph Node Post-Op Diagnosis: Carcinoma of Left Breast Metastatic to Left Axillary Lymph Node I identified the patient and participated in the time-out.: Yes Procedure Operation Date: 07/07/20 10:00 Actual Procedures p Bilateral Mastectomies, Left Axillary [place] Lymph Node Biopsy, Left Axillary [place] Space Physicist Biopsy, Left Axillary Lymph Node Dissection(Bilateral) - Homar Sarah MD Surgeon Homar Sarah MD Armored Car Messenger Tameka Grant PA-C Estimated Blood Loss 200 Findings Consistent with Post-Op Diagnosis Drains Javi-Calvert Drain
--- NOTE | 2020-07-07 15:08 | Mammography Report ---
SPECIMEN LEFT BREAST: 07/07/2020 CLINICAL HISTORY: 64-year-old woman with a history of left breast carcinoma and left axillary yung m etastasis, status post neoadjuvant chemotherapy presents at time of surgery and left lymph node sampl ing. Wireless localization of the previously biopsied left axillary lymph node was performed with Herb i Screen Vent Binder on 06/30/2020. COMPARISON: Comparison is made to exams dated: 06/30/2020 localization - [facility] , 10/31/2019 ultrasound biopsy, 10/26/2019 mammogram, 10/26/2019 ultrasound, 07/26/2019 mammogram, and 07/26/2019 ultrasound. FINDINGS: A specimen radiograph was obtained of the left axillary lymph node excision. The surgical specimen demonstrates the [place] Screen Vent Binder reflector, orb-shaped to hussain biopsy marker and calcified lymph node in question, compatible with successful preoperative localization and subsequent surgical excisi on. Final surgical pathology is pending. IMPRESSION: SPECIMEN Left axillary lymph node specimen radiograph, as above. Leticia Lezama M.D. ay/:07/07/2020 12:04:52 Dolly Driver: RT Magali(R)(M), [facility]
--- NOTE | 2020-07-07 16:35 | Anesthesiology Progress Note ---
Date of Service July 07, 2020 Anesthesia Post Procedure Vital Signs Vital Signs: Temp Pulse Pulse Resp BP Pulse Ox 07/07/20 16:15 36.5 C 85 12 144/86 H 95 07/07/20 16:05 84 13 155/86 H 96 07/07/20 15:55 86 13 164/76 H 96 07/07/20 15:45 81 12 171/83 H 93 07/07/20 15:35 84 12 144/76 H 98 07/07/20 15:25 95 H 13 160/92 H 97 07/07/20 15:16 36.9 C 101 H 15 185/85 H 99 07/07/20 09:24 36.9 C 80 18 187/80 H 96 Transfer of Care Handoff Completed per policy Notes Mental Status: alert / awake / arousable and participated in evaluation Patient Amnestic to Procedure: Yes Nausea / Vomiting: adequately controlled Pain: adequately controlled Airway Patency, RR, SpO2: stable & adequate BP & HR: stable & adequate Hydration State: stable & adequate Anesthetic Complications: no major complications apparent and Pt Satisfied with anesthetic care
[2020-07-07] MEDS ORDERED: SODIUM CHLORIDE 0.9% 1000ML 1,000 ML IV SCH (16:50)
[2020-07-07] MEDS ORDERED: PANTOprazole 40 MG TAB PO PRN (17:00)
[2020-07-07] MEDS ORDERED: MoRPHine SULFATE 4 MG/ML 1 ML CARP\\VIAL IV PRN (17:00)
[2020-07-07] MEDS ORDERED: FUROSEMIDE 20 MG TAB PO PRN (17:00)
[2020-07-07] MEDS ORDERED: EZETIMIBE 10 MG TABLET PO SCH (21:00)
[2020-07-07] MEDS ORDERED: HydrALAZINE TAB 50 MG TAB PO SCH (21:00)
[2020-07-07] MEDS: ONDANSETRON INJ 2 MG/ML 2 ML VIAL IV PRN (23:56)
--- NOTE | 2020-07-08 01:43 | Operative Report (OR) ---
DATE OF OPERATION: 07/07/2020 PREOPERATIVE DIAGNOSIS: Left breast cancer with left axillary lymph node metastasis. POSTOPERATIVE DIAGNOSIS: Left breast cancer with left axillary lymph node metastasis. PROCEDURE: Bilateral mastectomy with left axillary sentinel lymph node biopsy and excision of left axillary lymph node identified by [facility] that had previously been biopsied and left axillary dissection. SURGEON: Homar Sarah MD [employer] COUNSELOR: Tameka Grant PA-C. FINDINGS: The patient had a left breast cancer. She had an enlarged lymph node identified by ultrasound which was biopsied and found to have metastatic disease. She then underwent neoadjuvant chemotherapy. She completed that and was now being seen for surgical intervention. The breast cancer was never encountered during the left mastectomy. The patient had 1 sentinel lymph node identified with an in vivo count of 11 and an ex-vivo count of 27. That was sent for frozen section and the diagnosis was neoadjuvant treatment effect identified, however, there were also what appeared to be viable cancer cells present. The previously biopsied lymph node had a biopsy clip within it and a [facility] [employer] [facility] had previously been placed. The [facility] [employer] [facility] probe was used and that lymph node was able to be identified and that was removed as well. That was going to be sent for frozen as well. However, when sentinel lymph node was found to have viable cancer cells, decision was made to perform an axillary node dissection. The right axillary lymph nodes were removed. The thoracodorsal nerve and the long thoracic nerve were tested after completion of the dissection and were intact and functional. The right breast was removed prophylactically. There were no masses identified during that dissection. TECHNIQUE: The patient was taken to Nuclear Medicine where the nuclear tracer was placed in a periareolar fashion. She was then brought to the operating room. The Neoprobe was placed in the axilla. There was one area that demonstrated a high of 2 counts. The periareolar area was then injected in the dermis with methylene blue. The area was then prepped and draped in the usual sterile fashion. The left breast was approached first. The elliptical skin incision was sketched on the skin. The superior portion of the incision was made and was carried down through the subcutaneous tissue. The lateral border of the sternum on each side had been marked as where the inferior breast creases and the clavicles. The upper skin flap on the left was then created maintaining thickness uniformly until the clavicle was identified. The dissection was carried laterally beyond the edge of the pectoralis major muscle until the prepectoral or preaxillary fascia was identified. This was opened. The Neoprobe was then used to identify the sentinel lymph node. There were blue lymphatics leading up to the sentinel lymph node, although the node itself was not blue. This was away from the surrounding tissues using the LigaSure and sent for pathology. While that was undergoing frozen section, the [facility] [employer] [facility] probe was used to identify the previous lymph node that had been biopsied and clipped and then a [facility] [employer] probe placed. The [facility] [employer] [facility] lymph node was identified after dissecting through some of the axillary tissue. It was away from the surrounding tissues using the LigaSure as well. Imaging was performed and the clip and the [facility] [employer] probe were within the tissue. At that point, frozen section diagnosis was available showing the viable cancer cells and at that point, I decided to perform an axillary node dissection. The inferior incision was then made in the breast, carried down through the subcutaneous tissue. The flap was a little bit thick at first, but then was thinned keeping the tissue with the breast. This dissection was carried down to just beyond the inferior breast crease and around and medially. The prepectoral fascia was then peeled off the underlying pectoralis major muscle working from medial to lateral until I was beyond the lateral border of the pectoralis major muscle. I then the inferolateral attachments to the skin, mobilizing the breast tissue and allowing me then to follow the tail of the breast up to the axilla. The axillary fascia was then again opened and I was able to peel the axillary lymph nodes inferiorly until I could identify the axillary vein. The axillary vein was then skeletonized off the inferior side, working from the mid portion over towards the chest wall and then towards the lateral aspect. I then worked from anterior to posterior. There was 1 large vein extending off the inferior surface of the axillary vein that was divided using the LigaSure. That allowed me access to the more posterior structure and I identified the thoracodorsal neurovascular bundle. The thoracodorsal neurovascular bundle was skeletonized medially and laterally using blunt and cautery dissection where appropriate. The thoracodorsal nerve was identified. It was pinched and found to be functioning. I then worked along the chest wall and peeled the axillary tissue laterally off the chest wall, identifying the long thoracic nerve, which was functioning. That intermittent portion between those 2 nerves was then dissected out from under the pectoralis minor muscle, taking the level 2 lymph nodes. Once these were freed and brought inferiorly, I then followed the dissection of the thoracodorsal neurovascular bundle until it dove posteriorly towards the latissimus dorsi muscle. The long thoracic nerve was then followed and the tissue was peeled away from that until it entered into the serratus anterior musculature. The anterior dissection away from the chest wall was then completed, completely clearing the axilla with the nerves intact. The lateral dissection away from the skin was completed and the specimen was removed. The axillary tissue was contiguous with the breast tissue. It was marked with a silk suture laterally. Meticulous hemostasis was then obtained using electrocautery and using the LigaSure, The wound was irrigated. The superior flap was brought towards the inferior flap and there was redundant skin present. The redundancy was marked and removed. Hemostasis was then obtained. Two separate stab incisions were made inferior to the lateral aspect of the incision. A Javi-Calvert drain was brought through the more anterior, 1 placed along the chest wall and another 10 mm Javi-Calvert was brought through the more posterior stab wound and that was placed into the axilla after being cut to size. There it was secured at the skin level using 3-0 nylon. The skin was then closed using a running 2-0 Vicryl in the deep subcutaneous tissue, running 3-0 Vicryl in the superficial subcutaneous tissue and a running 4-0 Monocryl in a subcuticular fashion for the skin. The right breast was then attended to. The elliptical incision was sketched and the superior incision was made, carried down through the subcutaneous tissue. The superior flap was then created maintaining uniform thickness. The dissection was carried up to the clavicle and extended from the lateral border of the sternum out towards the axilla. The inferior incision was then made and similar skin flap was created down to just below the inferior breast crease. The prepectoral fascia was then peeled off the underlying pectoralis muscle working from medial to lateral until it was off the lateral edge. That allowed me to then complete the lateral dissection, removed the breast. The breast was marked with a silk suture laterally. Meticulous hemostasis was obtained using electrocautery. A separate stab incision was made inferior to the incision through which a 10 mm flat Javi-Calvert drain was brought and placed across the anterior chest wall. It was secured at the skin with 3-0 nylon. The skin incision was then closed using a running 2-0 Vicryl in the deep subcutaneous tissue, running 3-0 Vicryl in the superficial subcutaneous tissue and a running 4-0 Monocryl in a subcuticular fashion for the skin. Skin was cleansed, dried, benzoin placed, Steri-Strips applied. Estimated blood loss was 200 mL. Sponge, needle and instrument counts were correct prior to closure. The patient tolerated the surgical procedure without complication and was transferred to recovery. The physician carpenter assistant installer was present during the entire case. She helped with prepping and draping, retraction, lymph node identification, and closure of the incisions . I attest to the content of the Intraoperative Record and any orders documented therein. Any exceptions are noted below. MINERVA
[2020-07-08] MEDS: ONDANSETRON INJ 2 MG/ML 2 ML VIAL IV PRN (06:07)
[2020-07-08] MEDS ORDERED: OXYCODONE/ACETAMINOPHEN 5mg/325mg TAB PO PRN (07:10)
--- NOTE | 2020-07-08 07:10 | Surgery Progress Note ---
Date of Service July 08, 2020 Assessment & Plan (1) Breast cancer: Postoperative day 1 status post bilateral mastectomy, left sentinel lymph node biopsy, left axillary dissection Patient is doing very well Can discharge to home Discussed emptying and recording of drains Discussed sponge bath until drains are removed We will follow-up as scheduled If drains decreased to under 20 a day she can call and have them removed as that occurs. Admission and Anticipated Discharge Date Admission Date: July 07, 2020 Subjective Postoperative day #1 status post bilateral mastectomy with left sentinel lymph node biopsy left axillary dissection Patient feels very well Pain is controlled Had some nausea after the morphine Denies nausea vomiting otherwise Was ambulating in the halls Drain #1 had 70 cc out yesterday after surgery and 5 cc out for shift today Drain #2 had 85 cc out yesterday after surgery and 30 cc out for shift today Drain #3 had 80 cc out yesterday after surgery and 50 cc out for shift today All drainage is serosanguineous Physical Exam Physical Exam: Dressings on chest wall have no drainage. No erythema. Results & Data ([facility]) Vital Signs (Past 12 Hours) Vital Signs Temp Pulse Resp BP BP Pulse Ox 07/08/20 03:24 36.7 C 84 14 115/70 94 07/07/20 23:45 36.4 C L 85 15 141/80 H 93 07/07/20 19:37 36.9 C 82 16 136/78 94
[2020-07-08] MEDS ORDERED: AMLODIPINE BESYLATE 5 MG TAB PO SCH (09:00)
[2020-07-08] MEDS ORDERED: LOSARTAN POTASSIUM 50 MG TAB PO SCH (09:00)
--- NOTE | 2020-07-10 13:47 | Discharge Summary ---
Date of Service July 10, 2020 Admission HPI Per Admitting Provider Patient presented to [facility] for elective outpatient bilateral mastectomy with left sentinel lymph node biopsy for left breast cancer metastatic to left axillary nodes s/p neoadjuvant chemotherapy. Principal Diagnosis Left breast cancer metastatic to left axillary node Discharge Data Allergies Allergy/AdvReac Type Severity Reaction Status Date / Time amoxicillin Allergy Severe Augmentin- Verified 07/01/20 10:25 itchy, swelling, dyspnea clavulanic acid Allergy Severe Augmentin- Verified 07/01/20 10:25 itchy, swelling, dyspnea Penicillins Allergy Severe Augmentin- Verified 07/01/20 10:25 itchy, swelling, dyspnea lisinopril Allergy Mild cough/swell Verified 07/01/20 10:25 ing Sulfa (Sulfonamide Allergy Mild Rash Verified 07/01/20 10:25 Antibiotics) propofol Allergy cough, Verified 07/02/20 11:06 dyspnea > pulmonary edema (see comments) Procedures Performed Operation Date: 07/07/20 10:00 Actual Procedures p Bilateral Mastectomies, Left Axillary [place] Lymph Node Biopsy, Left Axillary [place] Section Hand Biopsy, Left Axillary Lymph Node Dissection(Bilateral) - Homar Sarah MD Hospital Course (1) Breast cancer: Patient was taken to operating room and underwent bilateral mastectomy with left axillary dissection by Dr. Sarah. Patient tolerated procedure well and was transferred to recovery then to medical/surgical floor for postoperative care. She had three anand drains placed. Postoperative day 1 , vitals stable, afebrile, pain controlled, drains with serosanguineous drainage. Patient was discharged home on POD # 1 in stable condition. Total Time Total Time Spent Total Time Spent (In Minutes): 20 Total Time Includes: Examination of the Patient, Discharge Planning and Medication Reconciliation Discharge Plan Discharge Items Patient Disposition: Home - Self-Care Reason For Visit: Bilateral Malignant Neoplasm of [place] of Breast i Discharge Diagnosis: Same Activity: As commented below Non-emergency contact: Surgeon Call non-emergency contact if: your temperature is above 101.5, your wound has increased redness and your wound has increased drainage Follow-up/Referrals: Christine Massey DO [Primary Care Provider] - Diet: Regular Addtl Attending Provider Instructions: Post-Surgical ~Discharge Instructions Activity Recommendations: - lifting limitation: (10 pounds for 6 weeks), - exercise/sex/sports limit: (nonstrenuous for 6 weeks), - driving or machine use limit: (none for 2 weeks), - Shower/bathe limit: (Sponge bath until drains are removed) Diet: - Resume previous diet SPECIAL CARE INSTRUCTIONS: - Sponge bath until drains are removed - Can place dressings over incisions with mastectomy bra to avoid irritation - Leave steri strips on for one week. - Call the surgeon's office with any questions or concerns - - (ex. temperature higher than 101 degrees F, excessive bleeding or pain). MEDICATIONS: - Resume previous medications unless instructed otherwise by your surgeon. - Ibuprofen 600 mg every 6 hours with food - Percocet 1 every 4 hours, as needed for pain FOLLOW UP VISIT: - If not already scheduled, please call the office to schedule a two week follow-up appointment. Office number Pending Studies at Discharge: Yes Studies:: Pathology Stand-Alone Forms: My [facility], Opioid Pain Management, Smoking Cessation Medications and DC Order Prescriptions: New oxycodone-acetaminophen [Percocet] 5-325 mg tablet 1 tab PO Q6H PRN (Reason: pain) Qty: 10 RF: 0 Continued montelukast 10 mg tablet 10 mg PO QAM RF: 0 hydralazine 50 mg tablet 50 mg PO BID RF: 0 ezetimibe 10 mg tablet 10 mg PO HS RF: 0 ondansetron HCl 8 mg tablet 8 mg PO QID RF: 0 dorzolamide 2 % drops 1 drp OPB BID RF: 0 amlodipine 10 mg Tablet 10 mg PO QAM RF: 0 pantoprazole [Protonix] 40 mg Tablet,Delayed Release (Dr/Ec) 40 mg PO QAM PRN (Reason: Acid Reflux) RF: 0 losartan 100 mg Tablet 100 mg PO QAM RF: 0 Combigan 0.2-0.5 % Drops 1 drp OPHTHALMIC (EYE) BID RF: 0 naproxen sodium 550 mg Tablet 550 mg PO BID PRN (Reason: Pain) RF: 0 furosemide 20 mg Tablet 20 mg PO QAM PRN (Reason: Fluid Retention) RF: 0 albuterol sulfate [ProAir HFA] 90 mcg/actuation Hfa Aerosol Inhaler 2 puff INHALATION QID PRN (Reason: Shortness Of Breath) RF: 0 fluticasone propionate [Flonase Allergy Relief] 50 mcg/actuation [place],Suspension 2 spray INTRANASAL DAILY PRN (Reason: Allergy Symptoms) RF: 0 duloxetine 60 mg Capsule,Delayed Release(Dr/Ec) 60 mg PO QAM RF: 0 Discharge Orders: Discharge Order (Routine); Ordered 07/08/20 Ordered By: Homar Schilling/Other Patient Handouts: DVT Post Op Prevention, Mastectomy: After Surgery, Mastectomy: Follow-Up Care Admission Data Admit Date/Time: 07/07/20 15:17 Attending Provider: Homar Sarah Admit Provider: Homar Sarah Primary Care Provider: Christine Massey Other Interventions: Discharge Summary Assessment (RN) Last Done: 07/08/20 08:16
== END 2020-07-08 09:13 | disposition home or self-care (01) ==
LOC: 3E 07:56 → ASU 07:56

== ENCOUNTER 2025-04-07 11:28 | Inpatient (IN) ==
--- OUTSIDE RECORDS SUMMARY | 2025-04-07 11:35 | External Medical Summary | Summary of Care ---
Author Name Unknown Organization [facility] Address [address] [place] [address] Phone [phone] Care Team Providers Care Electrolog Operator Name Role Phone Joseph Vazquez MD Primary Care Provider [phone] Reason for Visit * Reason Comments Medication Management Encounter Details Date Type Department Care Team (Late st Contact Info) Description 04/04/2025 9:30 AM EDT Pharmacy Pharmacy Hematology Oncology [facility] [address] [place] [address] [facility] [place] [facility] Hem[facility]Onc [address], [place] [id number] Malignant neoplasm of upper-outer quadrant of left breast in female, estrogen receptor positive (HCC)* Allergies Active Allergy Reactions Criticality Noted Date Comments Amoxicillin-Pot Clavulanate Hives 12/03/2010 Throat swelling Clavulanic Acid Hives High 02/18/2023 Diclofenac 06/06/2019 Headaches, nausea Lisinopril Low 06/05/2013 cough Other Reaction(s): cough/swelling Penicillins Hives High 02/18/2023 Sulfa Antibiotics Hives Low 03/22/[address] Sarah that since she's taking Bactrim, no Sulfa allergy at this point 08/19/20 Terazosin Edema Other 04/27/2017 documented as of this encounter (statuses as of 04/04/2025) Medications COMBIGAN 0.2-0.5 % ophthalmic solution Instill 1 Drop into both eyes in the morning and 1 Drop before bedtime. 08/17/20 19 Active Naproxen Sodium 550 MG Oral Tablet TAKE 1 TABLET BY MOUTH TWICE A DAY WITH BREAKFAST AND DINNER 180 Tablet 1 07/11/20 23 Active Additional Information Patient not taking.Reported on 04/03/2025 aspirin enteric coated 81 MG TBEC Take 1 Tablet by mouth in the morning. 06/09/20 20 Active OneTouch Verio w/Device KitIndications:T ype 2 diabetes mellitus with hemoglobin A1c goal of less than 7.0% ([facility]) Use up to twice times a day E11.9 1 Kit 04/15/20 22 Active Vitamin E 200 UNIT Oral Tablet Take by mouth. Active Eye Multivitamin OR Capsule Take 1 Capsule by mouth in the morning. Active Calcium Carb-Cholecalcif georgiana 500-5 MG-MCG Oral Tablet (Calcium 500+D3) Take by mouth. Activ e Prochlorperazine Maleate 10 MG Oral Tablet (Compazine)Indic ations:Malignant neoplasm of upper-outer quadrant of left breast in female, estrogen receptor positive (HCC) Take 1 Tablet by mouth every 6 hours as needed for Nausea. 90 Tablet 2 04/11/20 24 Active Carvedilol 6.25 MG Oral Tablet (Coreg)Indicatio ns:HTN, goal below 140/90 Take 1 Tablet by mouth 2 times a day with morning and evening meals. 180 Tablet 3 06/04/20 24 Active Cyclobenzaprine HCl 10 MG Oral Tablet (Flexeril)Indica tions:Piriformis syndrome of right side Take 1 Tablet by mouth 2 times a day as needed for Muscle spasms. 20 Tablet 07/30/20 24 Active Additional Information Patient not taking.Reported on 04/03/2025 Gabapentin 100 MG Oral Capsule (Neurontin)Indic ations:Neuropath y Take 2 capsules by mouth in the morning and 1 capsule by mouth at lunch and 1 capsule by mouth at dinner. 120 Capsule 5 10/08/20 24 Active Additional Information Patient taking differently: 200 mg Oral Daily(AM), Take 2 capsules by mouth in the morning, Reported on 04/03/2025 Famotidine 20 MG Oral Tablet (Pepcid) Take 1 Tablet by mouth in the morning and 1 Tablet before bedtime. 180 Tablet 3 10/11/20 24 Active Additional Information Patient taking differently:20 mg [id number], Reported on 04/03/2025 Esomeprazole Magnesium 40 MG Oral Capsule Delayed Release Take 1 Capsule by mouth daily before breakfast. 90 Capsule 3 10/11/20 24 Active Additional Information Patient taking differently:40 mg OralPRN, Reported on 04/03/2025 oxyCODONE HCl 5 MG Oral Tablet (Oxy IR)Indications:M alignant neoplasm of upper-outer quadrant of left breast in female, estrogen receptor positive (HCC),Metastasis to bone (HCC) Take 1 Tablet by mouth every 6 hours as needed for Pain, Moderate. 60 Tablet 10/14/20 24 Active Serevent Diskus 50 MCG/ACT Inhalation Aerosol Powder Breath Activated (Salmeterol Xinafoate)Indica tions:Chronic cough Inhale 1 Puff by mouth in the morning and 1 Puff before bedtime. 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 30 Tablet 3 12/14/19 25 Active Montelukast Sodium 10 MG Oral Tablet (Singulair)Indic ations:Chronic cough TAKE 1 TABLET BY MOUTH EVERY MORNING 90 Tablet 3 01/09/20 25 Active Fluticasone Propionate 50 MCG/ACT Nasal Suspension (Flonase)Indicat ions:Dysfunction of Eustachian tube, bilateral USE 2 SPRAYS IN EACH NOSTRIL ONCE DAILY IF NEEDED FOR CONGESTION 48 g 1 01/12/20 25 Active OneTouch Verio In Vitro Strip (Glucose Blood)Indication s:Type 2 diabetes mellitus with hemoglobin A1c goal of less than 7.0% (HCC) Use up to 2 times a day E11.9 100 Strip 5 01/14/20 25 Active OneTouch UltraSoft LancetsIndicatio ns:Type 2 diabetes mellitus with hemoglobin A1c goal of less than 7.0% ([facility]) Use as directed 2 times a day as needed for Hyperglycemia (high sugar) or Hypoglycemia (low sugar). 100 Each 01/14/20 Active Calcium 1200 [id number] MG-UNIT Oral Tablet Chewable Take 1 Tablet by mouth in the morning. 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 Take for 7 days followed by 7-day rest period. Take within 30 minutes of meal. Do not crush or cut.. 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 Take for 7 days followed by 7-day rest period. Take within 30 minutes of meal. Do not crush or cut.. 84 Tablet 03/28/2025 2:01 PM EDT 01/29/20 Active Additional Information Patient not taking.Reported on 04/03/2025 Solifenacin Succinate 5 MG Oral Tablet (VESIcare)Indica tions:Urge incontinence Take 1 Tablet by mouth in the morning. 30 Tablet 2 03/12/20 Active DULoxetine HCl 60 MG Oral Capsule Delayed Release Particles (Cymbalta)Indica tions:Major depressive disorder, recurrent episode, moderate (HCC),Fibromyalg ia Take 1 Capsule by mouth in the morning. 90 Capsule 3 03/25/20 25 Active Gabapentin 300 MG Oral Capsule (Neurontin) Take 2 Capsules by mouth at bedtime. 180 Capsule 3 03/25/20 25 Active Albuterol Sulfate HFA 108 (90 Base) MCG/ACT Inhalation Aerosol Solution Inhale 2 Puffs by mouth every 6 hours as needed for Shortness of Breath or Wheezing. 8.5 g 11 03/28/20 25 Active buPROPion HCl ER (XL) 150 MG Oral Tablet Extended Release 24 Hour (Wellbutrin XL)Indications:M ajor depressive disorder, recurrent episode, moderate (HCC) Take 1 Tablet by mouth in the morning. 90 Tablet 3 04/03/20 25 Active traZODone HCl 50 MG Oral Tablet (Desyrel)Indicat ions:Primary insomnia Take 0.5 Tablets by mouth at bedtime as needed for Sleep. 30 Tablet 04/03/20 25 Active Hospital, Clinic, or Other Facility Administered Medication Ordered Dose Route Frequency Start Date End Date Status albuterol sulfate (PROVENTIL) (2.5 MG/3ML) 0.083% inhalation solution 2.5 mgIndications:Restrictive lung disease,SOB (shortness of breath) 2.5 mg NEBULIZER Q4H PRN 11/07/2017 Act roe documented as of this encounter (statuses as of 04/04/2025) Active Problems Problem Noted Date Diagnosed Date Type 2 diabetes mellitus with diabetic polyneuro gabrielle 01/07/2025 B12 deficiency 10/19/2024 History of small bowel obstruction 02/15/2023 Hypertensive heart disease w ith chronic diastolic congestive heart failure 02/03/2023 Chronic diastolic congestive heart failure 12/02 Primary osteoarthritis of both knees 02/03/2022 HLA B27 (HLA B27 positive) 12/21/2021 Carotid stenosis, non-symptomatic, bilateral 07/2021 BRCA negative 09/24/2020 Overview (09/24/2020): Negative Genetic testing for: JUAN, BARD1, BRCA1, BRCA2, BRIP1, CDH1, CHEK2, EPCAM*, MLH1, MSH2, MSH6, NBN, NF1, PALB2, PMS2, PTEN, RAD51C, RAD51D, STK11, TP53. 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 11/12/2019 Glaucoma of right eye 08/13/2019 Restrictive lung disease 11/21/2017 Overview (11/30/2017): due to morbid obesity Gastroesophageal reflux disease without esophagi tis 09/21/2017 Left ventricular hypertrophy 04/05/2017 Ventral hernia 03/12/2014 Major depressive disorder, recurrent episode, mo derate 12/27/2012 Fibromyalgia 02/22/2012 Vitamin D deficiency 02/22/2012 Type 2 diabetes mellitus wit h hemoglobin A1c goal of less than 7.0% Overview (03/16/2016): ICD-10 update of inactive term Hyperlipidemia with target LDL less than 70 HTN, goal below 140/90 Fatty liver disease, nonalcoholic Irritable bowel syndrome wit h both constipation and diarrhea documented as of this encounter (statuses as of 04/04/2025) Resolved Problems Problem Noted Date Diagnosed Date Resolved Date Prediabetes 06/29/2021 08/13/2022 Overview: Per Prediabetes protocol Body mass index (BMI) of 40. 0 to 44.9 in adult 01/01/2020 12/18/2024 Overview: Per Obesity protocol Left renal artery stenosis 03/21/2018 0 07/13/2018 Restrictive lung disease 11/03/201708/2018 SOB (shortness of breath) 11/03/2017 BMI 45.0-49.9, adult 08/22/2017 020 Overview: Per Obesity protocol #1 Atypical chest pain 04/05/2017 04/25/20 17 Uncontrolled hypertension 04/05/2017 Mood disorder 04/05/2017 09/21/2017 Chronic cough 04/05/2017 04/25/2017 Abdominal pain, generalized 12/30/2016 04/05/2017 Chronic cough 12/30/2016 04/05/2017 Dyspepsia 12/30/2016 04/05/2017 Chronic idiopathic constipation 12/30/2016 05/11/2017 Osteoarthrosis, localized, p rimary, involving lower leg 05/20/2016 04/05/2017 Overview (08/24/2021): ICD-10 update of inactive term Body mass index (BMI) of 40.0-44.9 in adult 12/29/2015 04/05/2017 Overview (12/29/2015): bmi= 44.29 12/29/15 Intermittent asthma 12/29/2015 04/05/20 17 Chronic rhinitis 12/29/2015 04/05/2017 Abdominal pain 03/12/2014 06/21/2016 Elevated transaminase level 03/12/2014 04/05/2017 Headache 03/12/2014 04/05/2017 Overview (02/11/2016): ICD-10 update of inactive term Retching 03/12/2014 06/21/2016 Nausea 03/12/2014 06/21/2016 Overview (09/13/2017): ICD-10 update of inactive term Asthma 05/21/2013 12/29/2015 Hyperlipidemia with target LDL less than 100 3 09/21/2017 Overview (03/22/2016): ICD-10 update of inactive term Synovitis of hand 11/28/2012 04/25/2017 Chronic daily headache 08/15/201204/25 Migraine 08/15/2012 09/21/2017 HTN, goal below 140/80 07/10/201211/28 Overview: Per HTN Protocol #27. Major depressive disorder 02/22/2012 Overview (09/13/2017): ICD-10 update of inactive term Acute reaction to stress 02/22/201211/2015 Obesity, morbid (more than 1 00 lbs over ideal weight or BMI > 40) 02/22/2012 04/05/2017 Overview (02/22/2012): bmi= 43.27 02/22/12 Routine medical exam 02/22/2012 016 History of tobacco use 12/09/201104/05 Overview (12/09/2011): quit 12/03/87 MORBID OBESITY, BMI= 42.43 07/29/11 07/29/2011 04/05/2017 LOCAL ALLERGIC REACTION, RIGHT FOOT 05/04/2011 06/21/2016 BITE BY CAT, RIGHT FOOT 05/04/2011 08/11/2015 Overview (02/20/2025): ICD-10 Update of Inactive Term Deviated nasal septum 03/26/20112015 Cough 03/22/2011 06/21/2016 Overview (03/22/2011): SINCE 12/2010 ALLERGIC RHINITIS - MIXED TYPE 03/22/2011 04/25/2017 Chronic rhinitis 03/02/2011 03/22/2011 Dysfunction of eustachian tube 03/02/2011 06/21/2016 MORBID OBESITY, BMI= 44.96 11/26/10 11/26/2010 04/05/2017 HTN, goal below 130/80 11/26/201007/13 Overview: Per HTN Protocol #27. Routine medical exam 11/26/2010 012 Major depressive disorder 11/26/2010 Overview (09/13/2017): ICD-10 update of inactive term Gastritis and gastroduodenitis 02/22/2012 HTN, goal below 140/90 11/26 Fibromyalgia 02/22/2012 Arthritis, rheumatoid 2010 Vitamin D deficiency 012 CODIE inhibitor intolerance Overview (07/27/2012): cough documented as of this encounter (statuses as of 04/04/2025) Immunizations Name Administration Dates Next Due COVID-19 mRNA, LNP-s, No Pre serve, 2-Dose Series (Moderna) 12/16/2021,02/03/2021,01/19/2021,12/22,12/22/2020 COVID-19, mRNA, LNP-s, PF, B ooster, 100mcg/0.5mg (Moderna) 12/09/2021 Pneumococcal Conjugate Vacc, 13 Valent (Prevnar) 08/17/2018 Pneumococcal Polysaccharide PPV23 (Pneumovax) 10/05/2019 Seasonal Influenza Vac., MDV , IM, 0.5 mL (Fluzone) 08/20/2013,07/22/2010 08/20/2014 Seasonal Influenza, PF, 6 M & above, IM , (FluLaval or Fluzone) 09/23/2020,10/05/2019 Seasonal Influenza, Quadriva lent, No Preserve, IM 08/17/2018 08/17/2019 TDAP, Age 7 and older, IM (Adacel) 12/22/2009 documented as of this encounter Social History Tobacco Use Types Packs/Day Years Used Date Smoking Tobacco: Former Cigarettes 1.5 17 0 12/03/1970 - 12/03/1987 Passive Smoke Exposure: Never Smokeless Tobacco: Never Alcohol Use Standard Drinks/Week Comments Not Currently 0 (1 standard drink = 0.6 oz pur e alcohol) rare PHQ-2 Answer Date Recorded PHQ Adult Total Score 0 08/20/2024 Hunger Vital Sign Answer Date Recorded Within the past 12 months, y ou worried that your food would run out before you got the money to buy more. Patient declined Within the past 12 months, t he food you bought just didn't last and you didn't have money to get more. 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 Not on file Not on file Not on file documented as of this encounter Progress Notes * Nessa Taveras, [facility] - 04/04/2025 9:40 AM EDT MEDICATION THERAPY MANAGEMENT CAPECITABINE TREATMENT PROGRESS NOTE Sarah Burgos [phone] Patient Phone Numbers Preferred Lab: [facility] Communication: Chart review Treatment: Medication: Capecitabine (Xeloda) Indication/Staging/Diagnosis Code: met ER+/WI+/HER2- breast cancer / C50.412 Dose Basis: 800mg/m2 Dose: 1650mg (3-500mg + 1-150mg tab) BID 7 days on, 7 days off Administration: within 30 minutes after AM/PM meals Start Date: 02/06/25 Primary Escrow Agent/Oncologist: Dr. Rui Christiansen Supportive Care Meds: Xgeva Ondansetron Prochlorperazine Prophylactic Meds: Urea cream Relevant Chronic Medications: Category Medications Pertinent Notes Antihypertensives HCTZ 12.5mg daily Losartain 100mg daily Carvedilol 6.25mg BID Hydralazine 50mg TID Per cardiology Antidiabetic Sitagliptin Pt hx Anticoagulation ASA 81mg daily Pt hx Cycle Dates C1 02/06-02/12; 02/20-02/26 C2 03/06-03/12; 03/20-03/26 C3 04/03-04/09; 04/17-04/23 C4 05/01-05/07; 05/15-05/21 (Anticipated) Treatment History: 12/25/19-05/22/20: DDAC + paclitaxel 07/07/20: b/l mastectomy 10/2020: RT 05/2020-10/2022: anastrozole 10/2022-02/2024: exemestane 03/28/24-01/2025: abemaciclib and fulvestrant Treatment Dose Adjustment/Hold History: N/A Interval History: Per PCP OV 04/03/25, pt notes increased depression since starting current cancer treatment and prescribed bupropion and trazodone Changes to medication list since last visit? Yes, bupropion and trazodone - no DDIs Drug interaction assessment: Treatment plan and current medication list evaluated for drug-drug interactions. No clinically significant drug interaction identified Assessment and Plan: Pt seen by provider 04/02/25 Ca2+ 7.6 (corrected Ca2+ 7.5) AST increasing to 1.5 times ULN Alk phos elevated but declining Per PI, no dose adjustment recommended for LFTs < 2.5 times ULN (grade 2 hepatotoxicity) Will monitor closely All other labs stable Continue current therapy and monthly labs (next due with OV) Assessment of compliance: N/A Assessment of adverse effects attributed to drug therapy: N/A Dose adjustment needed based on lab or adverse drug reaction? No Follow up: 4 weeks OV/labs; 6 weeks MTM Nessa Taveras, PharmD, BCOP Clinical Pharmacist, [facility] Oral Chemotherapy [facility] 04/04/2025, 9:49 AM Monitoring Parameters: Estimated CrCl Serum creatinine: 0.6 mg/dL 04/02/25 1259 Estimated creatinine clearance: 75.5 mL/min Hepatitis panel Latest Reference Range & Units 02/07/24 11:32 Hepatitis B Surface Antigen Negative Negative Hepatitis B Surface Antibody, Quantitative mIU/mL <3.5 HEPATITIS B SURFACE ANTIBODY Rpt Hepatitis B Surface Antibody, Interpretation NOT immune to Hepatitis B Virus Hepatitis B Surface Antibody, Qualitative Negative Hepatitis B Core Antibodies IgG and IgM Negative Negative Hepatitis B Core Antibody IgM Negative Negative test N/A - post menopausal Suggested lab monitoring Suggested lab monitoring: CBC with differential (baseline and prior to each cycle); CMP (baseline, and prior to each cycle); INR (if receiving VKA); test (in females of reproductive potential prior to initiating therapy); EKG (if on concomitant QT-prolonging medications) Treatment Parameters Treatment parameters: baseline platelets should be > 100K and ANC > 1500 Pertinent labs: Latest Reference Range & Units 02/04/25 11:50 03/07/25 09:57 04/02/25 12:59 WBC 4.00 - 10.80 K/uL 3.91 (L) 4.94 6.07 RBC 3.85 - 5.15 M/uL 2.50 2.91 3.07 HGB 12.0 - 15.3 g/dL 9.0 (L) 10.1 (L) 10.8 (L) HCT 36.0 - 45.2 % 28.5 (L) 32.5 (L) 32.5 (L) MCV 81.5 - 97.5 fL 114.0 111.7 105.9 MCH 27.0 - 34.0 pg 36.0 34.7 35.2 MCHC 32.0 - 36.0 g/dL 31.6 31.1 33.2 RDW 11.5 - 15.5 % 16.3 15.9 17.0 PLT 140 - 400 K/uL 174 163 169 MPV 6.6 - 11.1 fL 11.0 11.0 10.3 NRBC % <=0 /100 WBCs 1 (H) 0 Absolute Neutrophils 1.80 - 7.70 K/uL 2.71 3.68 4.50 Latest Reference Range & Units 02/04/25 11:50 03/07/25 09:57 04/02/25 12:59 CALCIUM 8.4 - 10.2 mg/dL 7.8 (L) 8.9 7.6 (L) Latest Reference Range & Units 02/04/25 11:50 03/07/25 09:57 04/02/25 12:59 Albumin 3.8 - 5.0 g/dL 3.9 3.8 4.1 AST 10 - 35 U/L 45 (H) 32 51 (H) ALT 10 - 35 U/L 25 17 21 Alkaline Phosphatase 35 - 130 U/L 538 (H) 415 (H) 292 (H) Bilirubin, Total <=1.2 mg/dL 0.5 0.6 1.2 Time Spent on Encounter: 6 - 10 minutes documented in this encounter Plan of Treatment Upcoming Encounters Date Type Department Care Team (Late st Contact Info) Description 04/23/2025 9:45 AM EDT Imaging Radiology [address] [place] [phone] 05/03/2025 9:00 AM EDT Office Visit Hematology/Oncology [facility] [place] [address] [place] [phone] Marquis Christiansen MD [address] [place] [address] 05/17/2025 9:45 AM EDT Pharmacy Pharmacy Hematology Oncology [facility] [address] [place] [address] [facility] [facility] Hem[facility]Onc [address] [place] [address] 06/24/2025 8:30 AM EDT Office Visit Cardiology, [facility] [address] [place] [phone] Homar Ware PA-C [address] [place] [phone] Scheduled Procedures Name Priority Associated Diagnoses Date/Ti me COLONOSCOPY FLEXIBLE PROXIMAL DIAGNOSTIC Recall Gastroesophageal reflux disease, unspecified whether esophagitis present Special screening for malignant neoplasms, colon ESOPHAGOGASTRODUODENOSCOPY ( EGD), FLEXIBLE, TRANSORAL, DIAGNOSTIC Recall Gastroesophageal reflux disease, unspecified whether esophagitis present Special screening for malignant neoplasms, colon Health Maintenance Due Date Last Done Comments Zoster Vaccines (1 of 2) 1974 Cologuard 2000 Fecal Occult Blood Test 2000 Sigmoidoscopy 2000 DTap/Tdap Vaccines (2 - Td or Tdap) 12/22/2019 12/22/2009 Adult Wellness Visit 2021 Albumin/Creatinine Ratio 02/01/2024 023, 09/17/2019, 06/03/2014, Additional history exists COVID-19 Vaccine ( season) 2024 12/16/2021, 12/09/2021, 02/03/2021, Additional history exists Pneumococcal Vaccine: 50+ Years (3 of 3 - PPSV23, PCV20 or PCV21) 10/05/2024 10/05/2019, 08/17/2018 HbA1c 02/20/2025 08/22/2024, 12/23, 08/04/2023, Additional history exists Influenza Vaccine (FLU shot) (Season Ended) 2025 09/23/2020, 10/05/2019, 08/17/2018, Additional history exists Depression Monitoring 08/20/2025 08/20/2024 Diabetic Eye Exam 11/21/2025 08/12/2016, 04/17/2013 Postponed from 08/12/2017 (Patient Declined After Education) GFR 04/02/2026 04/02/2025, 02/19, 02/04/2025, Additional history exists Colonoscopy 02/28/2028 02/27/2018, 04/0 07/2018, 03/21/2012, Additional history exists Colorectal Cancer Screening 02/28/2028 DXA Scan 03/14/2030 03/14/2023, 05/21, 03/30/2019 Diabetic Foot Exam Discontinued 09/27/2022, 0 12/09/2011, 03/02/2011, Additional history exists EKG Completed 12/25/2024, 07/22, 08/02/2022, Additional history exists HPV (Gardasil) Vaccine Aged Out No lo nger eligible based on patient's age to complete this topic Hepatitis B Vaccine Aged Out No longe r eligible based on patient's age to complete this topic MENINGOCOCCAL (MENACTRA/MENVEO) Aged Out No longer eligible based on patient's age to complete this topic Meningitis B Vaccine (Bexsero/Trumemba) Aged Out No longer eligible based on patient's age to complete this topic documented as of this encounter Medical Devices Not on filedocumented as of this encounter Visit Diagnoses Diagnosis Malignant neoplasm of upper-outer quadrant of left breast in female, estrogen receptor positive (HCC)- Primary documented in this encounter Advance Directives * Full Code (Latest Code Status on File) Date Activated Date Inactivated Comments 08/30/2023 12:53 PM 08/30/2023 7:47 PM Question Answer Comments Discussion of Advance Direct cash occurred with: Not Discussed due to patient's condition * Full Code Date Activated Date Inactivated Comments 08/30/2023 8:07 AM 08/30/2023 12:53 PM This orde r reflects the patients wishes and were consensually agreed upon. Question Answer Comments Discussion of Advance Direct cash occurred with: Not Discussed due to patient's condition Care Teams Electrolog Operator Relationship Specialty Start Date End Date March, Joseph Vasquez MD [address] [place] [address] PCP - General Family Medicine 03/04/25 documented as of this encounter
--- OUTSIDE RECORDS SUMMARY | 2025-04-07 11:36 | External Medical Summary | Summary of Care ---
Author Name Unknown Organization [facility] Address [address] [facility] [place] [address] Phone [phone] Care Team Providers Care Ux Ui Designer Name Role Phone Joseph Vazquez MD Primary Care Provider [phone] Reason for Visit * Reason Comments Medication Administration Vitamin B-12 Encounter Details Date Type Department Care Team (Late st Contact Info) Description 04/02/2025 2:15 PM EDT Immunization/In jection Hematology/Oncology Treatment, [place] [address] [place] [address] Nimo, Chair 2 Hem Onc [place] [address] [place] [address] B12 deficiency* Allergies Active Allergy Reactions Criticality Noted Date [...] as of this encounter (statuses as of 04/02/2025) Medications COMBIGAN 0.2-0.5 % ophthalmic solution Instill 1 Drop into both eyes in the morning and 1 Drop before bedtime. 08/17/20 19 Active Naproxen Sodium 550 MG Oral Tablet TAKE 1 TABLET BY MOUTH TWICE A DAY WITH BREAKFAST AND DINNER 180 Tablet 1 07/11/20 23 Active Additional Information Patient not taking.Reported on 01/24/2025 aspirin enteric coated 81 MG TBEC Take 1 Tablet by mouth in the morning. 06/09/20 20 Active OneTouch Verio w/Device KitIndications:T ype 2 diabetes mellitus with hemoglobin A1c goal of less than 7.0% ([facility]) Use up to twice times a day [...] Active Additional Information Patient not taking.Reported on 01/30/2025 Gabapentin 100 MG Oral Capsule (Neurontin)Indic ations:Neuropath y Take 2 capsules by mouth in the morning and 1 capsule by mouth at lunch and 1 capsule by mouth at dinner. 120 Capsule 5 10/08/20 24 Active Additional Information Patient taking differently: 200 mg Oral Daily(AM), Take 2 capsules by mouth in the morning, Reported on 01/30/2025 Famotidine 20 MG Oral Tablet (Pepcid) Take 1 Tablet by mouth in the morning and 1 Tablet before bedtime. 180 Tablet 3 10/11/20 24 Active Additional Information Patient taking differently:20 mg [id number], Reported on 01/30/2025 Esomeprazole Magnesium 40 MG Oral Capsule Delayed Release Take 1 Capsule by mouth daily before breakfast. 90 Capsule 3 10/11/20 24 Active Additional Information Patient taking differently:40 mg OralPRN, Reported on 04/02/2025 oxyCODONE HCl 5 MG Oral Tablet (Oxy [...] Active Additional Information Patient not taking.Reported on 01/30/2025 Ondansetron HCl 8 MG Oral Tablet (Zofran)Indicati [...] MORNING 90 Tablet 3 01/09/20 25 Active Losartan Potassium 25 MG Oral Tablet (Cozaar)Indicati ons:HTN, goal below 140/90 Take 0.5 Tablets by mouth daily. 45 Tablet 3 01/11/20 25 Active Additional Information Patient not taking.Reported on 01/30/2025 Fluticasone Propionate 50 MCG/ACT Nasal Suspension (Flonase)Indicat ions:Dysfunction of Eustachian tube, bilateral USE 2 SPRAYS IN EACH NOSTRIL ONCE DAILY IF NEEDED FOR CONGESTION 48 g 1 01/12/20 25 Active OneTouch Verio In Vitro Strip (Glucose Blood)Indication s:Type 2 diabetes mellitus with hemoglobin A1c goal of less than 7.0% (HCC) Use up to 2 times a day E11.9 100 Strip 01/14/20 Active OneTouch UltraSoft LancetsIndicatio ns:Type 2 diabetes mellitus with hemoglobin A1c goal of less than 7.0% (HCC) Use as directed 2 times a day as needed for Hyperglycemia (high sugar) or Hypoglycemia (low sugar). 100 Each 01/14/20 Active Calcium 1200 8149-6093 MG-UNIT Oral Tablet Chewable Take 1 Tablet by mouth in the morning. 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 30 Tablet 01/25/20 25 Active Additional Information Patient not taking.Reported on 01/30/2025 Capecitabine 150 MG Oral Tablet (Xeloda)Indicati ons:Carcinoma [...] Do not crush or cut.. 28 Tablet 5 03/28/2025 2:01 PM EDT 01/29/20 25 Active Additional Information Patient not taking.Reported on 01/30/2025 Capecitabine 500 MG Oral Tablet (Xeloda)Indicati ons:Carcinoma [...] Do not crush or cut.. 84 Tablet 5 03/28/2025 2:01 PM EDT 01/29/20 25 Active Additional Information Patient not taking.Reported on 01/30/2025 Solifenacin Succinate 5 MG Oral Tablet (VESIcare)Indica tions:Urge incontinence Take 1 Tablet by mouth in the morning. 30 Tablet 2 03/12/20 Active DULoxetine HCl 60 MG Oral Capsule Delayed Release Particles (Cymbalta)Indica tions:Major depressive disorder, recurrent episode, moderate (HCC),Fibromyalg ia Take 1 Capsule by mouth in the morning. 90 Capsule 3 03/25/20 Active Gabapentin 300 MG Oral Capsule (Neurontin) Take 2 Capsules by mouth at bedtime. 180 Capsule 3 03/25/20 Active Albuterol Sulfate HFA 108 (90 Base) MCG/ACT Inhalation Aerosol Solution Inhale 2 Puffs by mouth every 6 hours as needed for Shortness of Breath or Wheezing. 8.5 g 03/28/20 Active Hospital, Clinic, or Other Facility Administered Medication Ordered Dose Route Frequency Start Date End Date Status albuterol sulfate (PROVENTIL) (2.5 MG/3ML) 0.083% inhalation solution 2.5 mgIndications:Restrictive lung disease,SOB (shortness of breath) 2.5 mg NEBULIZER Q4H PRN 11/07/2017 Act roe documented as of this encounter (statuses as of 04/02/2025) Active Problems Problem Noted Date Diagnosed Date [...] as of this encounter (statuses as of 04/02/2025) Resolved Problems Problem Noted Date Diagnosed Date Resolved Date Prediabetes 06/29/2021 08/13/2022 Overview: Per Prediabetes protocol Body mass index (BMI) of 40. 0 to 44.9 in adult 01/01/2020 12/18/2024 Overview: Per Obesity protocol Left renal artery stenosis 03/21/2018 0 07/13/2018 Restrictive lung disease 11/03/201708/2018 SOB (shortness of breath) 11/03/2017 BMI 45.0-49.9, adult 08/22/2017 02 020 Overview: Per Obesity protocol #1 Atypical [...] 06/21/2016 BITE BY CAT, RIGHT FOOT 05/04/2011 08/0 11/2015 Overview (02/20/2025): ICD-10 Update of Inactive Term [...] as of this encounter (statuses as of 04/02/2025) Immunizations Name Administration Dates Next Due COVID-19 [...] as of this encounter Progress Notes * Elizabeth Denise LPN - 04/02/2025 2:26 PM EDT Patient here for an appointment with Carlene; Administered Vitamin B-12 injection into DOMINIQUE. Patienttolerated injection well. She denies any complaints. Patient to return on 04/04/2025 as scheduled for her Xgeva injection. Discharged from clinic in stable condition. documented in this encounter Plan of Treatment Upcoming Encounters Date Type Department Care Team (Late st Contact Info) Description 04/03/2025 10:00 AM EDT Laboratory Laboratory, [address] [place] [phone] Mavis [place] [address] [place] [address] 04/03/2025 4:40 PM EDT Office Visit Family [facility], Brigid Jones [address] [place] [phone] MarchJoseph MD [address] [place] [address] 04/04/2025 9:30 AM EDT Immunization/Injecti on Hematology/Oncology Treatment, [place] [address] [facility] [address] [place] [address] Nimo, Chair [address] Hem On[address] [place] [address] 04/04/2025 9:30 AM EDT Pharmacy Pharmacy Hematology Oncology [facility] [address] [place] [address] [facility], [facility] Clinic Hem/Onc [address] [place] [address] 04/23/2025 9:45 AM EDT Imaging Radiology [address] [place] [phone] 05/03/2025 9:00 AM EDT Office Visit Hematology/Oncology [facility] Nimo [place] [address] [place] [phone] Marquis Christiansen MD 200 [facility] [place] [address] 06/24/2025 8:30 AM EDT Office Visit Cardiology, [facility] [address] [place] [phone] Homar Ware PA-C [address] [place] [address] Scheduled Procedures Name Priority Associated Diagnoses Date/Ti [...] 02/04/2025, Additional history exists Colonoscopy 02/28/2028 02/27/2018, 07/2018, 03/21/2012, Additional history exists Colorectal Cancer [...] as of this encounter Visit Diagnoses Diagnosis B12 deficiency- Primary Other B-complex deficiencies documented in this encounter Administered Medications Inactive Administered Medications - up to 3 most recent administrations Medication Order MAR Action Action Date Dose Rate Site Vitamin B-12 (Cyanocobalamin) inj 1,000 mcg 1,000 mcg, Intramuscular, ONCE, On Tue04/02/25 at 1515, For 1 doseIndications:B12 deficiency Given 04/02/2025 2:26 PM EDT 1,000 mcg Arm Right Upper documented in this encounter Advance Directives * [...] Discussed due to patient's condition Care Teams Ux Ui Designer Relationship Specialty Start Date End Date March, Joseph Vasquez MD [address] [place] [address] PCP - General Family Medicine 03/04/25 documented as of this encounter
--- OUTSIDE RECORDS SUMMARY | 2025-04-07 11:36 | External Medical Summary | Summary of Care ---
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) Use up to twice times a day [...] Active Additional Information Patient taking differently:20 mg [id number], Reported on 01/30/2025 Esomeprazole Magnesium 40 MG Oral Capsule Delayed Release Take 1 Capsule by mouth daily before breakfast. 90 Capsule 3 10/11/20 24 Active oxyCODONE HCl 5 MG Oral Tablet (Oxy [...] sugar). 100 Each 01/14/20 Active Calcium 1200 4713-8015 MG-UNIT Oral Tablet Chewable Take 1 Tablet [...] in the morning. 30 Tablet 2 03/12/20 25 Active DULoxetine HCl 60 MG Oral Capsule [...] Wheezing. 8.5 g 11 03/28/20 25 Active Hospital, Clinic, or Other Facility [...] on file documented as of this encounter Plan of Treatment Upcoming Encounters Date Type Department Care Team (Late st Contact Info) Description 04/03/2025 10:00 AM EDT Laboratory Laboratory, Brigid Mart [address] [place] [phone] Mavis [place] [address] [place] [address] 04/03/2025 4:40 PM EDT Office Visit [facility] [place] [address] [place] [phone] Joseph Vazquez MD [address] [place] [address] 04/04/2025 9:30 AM EDT Immunization/Injecti on Hematology/Oncology Treatment, [place] [address] [facility] [address] [place] [address] Nimo, Chair 10 Hem On[address] [place] [address] 04/04/2025 9:30 AM EDT Pharmacy Pharmacy Hematology Oncology [address] [address] [facility], [facility] Hem/Onc [facility] [place]note 2] [place] [address] 04/23/2025 9:45 AM EDT Imaging Radiology [facility] 1st [facility] [address] [place] [phone] 05/03/2025 9:00 AM EDT Office Visit Hematology/Oncology [address] [place] [phone] Marquis Christiansen MD [address] [facility] [place] [address] 06/24/2025 8:30 AM EDT Office Visit Cardiology, [facility] [address] [place] [phone] Homar Ware PA-C [address] [place] [address] Scheduled Procedures Name Priority Associated Diagnoses Date/Ti [...] Not on filedocumented as of this encounter Procedures Procedure Name Priority Date/Time Associated Diagnosis Comments DIFFERENTIAL, AUTOMATED STAT 04/02/2025 12:59 PM EDT 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) History of breast cancer Metastasis to bone (HCC) Malignant neoplasm of upper-outer quadrant of left breast in female, estrogen receptor positive (HCC) COMPREHENSIVE METABOLIC PANEL STAT 04/02/2025 12:59 PM EDT 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) History of breast cancer Metastasis to bone (HCC) Malignant neoplasm of upper-outer quadrant of left breast in female, estrogen receptor positive (HCC) CBC STAT 04/02/2025 12:59 PM EDT 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) History of breast cancer Metastasis to bone (HCC) Malignant neoplasm of upper-outer quadrant of left breast in female, estrogen receptor positive (HCC) PHOSPHORUS Routine 04/02/2025 12:59 PM EDT 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 56- Neutrophils % 74.1 40.0 - 75.0 % 04/02/2025 1:04 PM EDT [facility] 56-02 Lymphocytes % 13.0(L) 18.0 - 42.0 % 04/02/2025 1:04 PM EDT [facility] 56- Monocytes % 9.4 1.0 - 11.0 % 04/02/2025 1:04 PM EDT [facility] 56- Eosinophils % 3.0 0.0 - 6.0 % 04/02/2025 1:04 PM EDT [facility] 56- Basophils % 0.5 0.0 - 2.0 % 04/02/2025 1:04 PM EDT [facility] 56- Absolute Neutrophils 4.50 1.80 - 7.70 K/uL 04/02/2025 1:04 PM EDT [facility] 56- Absolute Lymphocytes 0.79(L) 1.00 - 4.80 K/ul 04/02/2025 1:04 PM EDT [facility] 56- Absolute Monocytes 0.57 0.00 - 1.10 K/uL 04/02/2025 1:04 PM EDT [facility] 56-02 Absolute Eosinophils 0.18 0.00 - 0.70 K/uL 04/02/2025 1:04 PM EDT [facility] 56- Absolute Basophils 0.03 0.00 - 0.20 K/uL 04/02/2025 1:04 PM EDT [facility] 56- Blood Venous blood specimen / Unknown Venipuncture / Unknown 04/02/2025 12:59 PM EDT 04/02/2025 12:59 PM EDT us Marquis Christiansen MD LAB BLOOD ORDERABLES Final Res ult [facility] 56- [address] [place] [address] * (ABNORMAL) CBC (04/02/2025 12:59 PM EDT) WBC 6.07 4.00 - 10.80 K/uL 04/02/2025 1:04 PM EDT [facility] 56 RBC 3.07 3.85 - 5.15 M/uL 04/02/2025 1:04 PM EDT [facility] 56 HGB 10.8(L) 12.0 - 15.3 g/dL 04/02/2025 1:04 PM EDT [facility] 56 HCT 32.5(L) 36.0 - 45.2 % 04/02/2025 1:04 PM EDT [facility] 56 MCV 105.9 81.5 - 97.5 fL 04/02/2025 1:04 PM EDT [facility] 56 MCH 35.2 27.0 - 34.0 pg 04/02/2025 1:04 PM EDT [facility] 56 MCHC 33.2 32.0 - 36.0 g/dL 04/02/2025 1:04 PM EDT [facility] 56 RDW 17.0 11.5 - 15.5 % 04/02/2025 1:04 PM EDT [facility] 56 PLT 169 140 - 400 K/uL 04/02/2025 1:04 PM EDT [facility] 56 MPV 10.3 6.6 - 11.1 fL 04/02/2025 1:04 PM EDT [facility] 56 Blood Venous blood specimen / Unknown Venipuncture / Unknown 04/02/2025 12:59 PM EDT 04/02/2025 12:59 PM EDT us Marquis Christiansen MD LAB BLOOD ORDERABLES Final Res ult [facility] 56- [address] [place], [place] [address] * PHOSPHORUS (04/02/2025 12:59 PM EDT) Phosphorus 2.5 2.5 - 4.8 mg/dL 04/02/2025 1:25 PM EDT [facility] 56 Blood Venous blood specimen / Unknown Venipuncture / Unknown 04/02/2025 12:59 PM EDT 04/02/2025 12:59 PM EDT us Marquis Christiansen MD LAB BLOOD ORDERABLES Final Res ult [facility] [address] [place], [place] [phone] * (ABNORMAL) COMPREHENSIVE METABOLIC PANEL (04/02/2025 12:59 PM EDT) BUN 9 6 - 20 mg/dL 04/02/2025 1:25 PM EDT [facility] CREATININE 0.6 0.5 - 1.0 mg/dL 04/02/2025 1:25 PM EDT [address] EGFR >90 >=60 mL/min 04/02/2025 1:25 PM EDT [facility] Comment:eGFR is calculated b ased on the CKD-EPI 2020 equation. SODIUM 140 135 - 146 mmol/L 04/02/2025 1:25 PM EDT [facility] POTASSIUM 4.0 3.5 - 5.1 mmol/L 04/02/2025 1:25 PM EDT [facility] CHLORIDE 105 98 - 107 mmol/L 04/02/2025 1:25 PM EDT [facility] 56 CO2 22 22 - 32 mmol/L 04/02/2025 1:25 PM EDT [facility] 56 ANION GAP 13 7 - 15 mmol/L 04/02/2025 1:25 PM EDT [facility] 56 GLUCOSE 143(H) 70 - 120 mg/dL 04/02/2025 1:25 PM EDT [facility] 56 Albumin 4.1 3.8 - 5.0 g/dL 04/02/2025 1:25 PM EDT [facility] 56 AST 51(H) 10 - 35 U/L 04/02/2025 1:25 PM EDT [facility] 56 Alkaline Phosphatase 292(H) 35 - 130 U/L 04/02/2025 1:25 PM EDT [facility] 56 Bilirubin, Total 1.2 <=1.2 mg/dL 04/02/2025 1:25 PM EDT [facility] 56 CALCIUM 7.6(L) 8.4 - 10.2 mg/dL 04/02/2025 1:25 PM EDT [facility] 56 Protein 6.8 6.0 - 8.3 g/dL 04/02/2025 1:25 PM EDT [facility] 56 ALT 21 10 - 35 U/L 04/02/2025 1:25 PM EDT [facility] 56 Blood Venous blood specimen / Unknown Venipuncture / Unknown 04/02/2025 12:59 PM EDT 04/02/2025 12:59 PM EDT us Marquis Christiansen MD LAB BLOOD ORDERABLES Final Res ult 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
--- OUTSIDE RECORDS SUMMARY | 2025-04-07 11:36 | External Medical Summary | Summary of Care ---
Author Name Unknown Organization [facility] Address [address] [facility] [place] [address] Phone [phone] Care Team Providers Care Table Saw Operator Name Role Phone MarchJoseph MD Primary Care Provider [phone] Reason for Visit * Reason Onset Date Comments Medication Management 04/01/2025 Encounter Details Date Type Department Care Team (Late st Contact Info) Description 04/01/2025 [facility] [place] [address] [place] [phone] MarchJoseph MD [address] [place] [address] Medication Management Allergies Active Allergy Reactions Criticality Noted Date [...] as of this encounter (statuses as of 04/03/2025) Medications COMBIGAN 0.2-0.5 % ophthalmic solution Instill [...] less than 7.0% (HCC) Use up to twice times a day [...] Active Additional Information Patient taking differently:20 mg [id number], Reported on 01/30/2025 Esomeprazole Magnesium 40 MG [...] sugar). 100 Each 01/14/20 Active Calcium 1200 3893-5911 MG-UNIT Oral Tablet Chewable Take 1 Tablet [...] Tablet 5 03/28/2025 2:01 PM EDT 01/29/20 Active Additional [...] as of this encounter (statuses as of 04/03/2025) Active Problems Problem Noted Date Diagnosed Date [...] as of this encounter (statuses as of 04/03/2025) Resolved Problems Problem Noted Date Diagnosed Date [...] as of this encounter (statuses as of 04/03/2025) Immunizations Name Administration Dates Next Due COVID-19 [...] on file documented as of this encounter Miscellaneous Notes * Telephone Encounter - Concepción Mendiola OSA - 04/02/2025 5:34 PM EDT Patient has been notified of the message. Patient has no further questions. * Telephone Encounter - Sujata Martinez LPN - 04/02/2025 5:30 PM EDT Attempted to call patient, there was no answer, left voicemail. When patient returns call, ok for REMBERTO to relay message, please refer to below documentation. If needed, can transfer to dedicated nurse line. * Telephone Encounter - Joseph Vazquez MD - 04/01/2025 5:08 PM EDT Recommend patient restart losartan 12.5 mg daily (1/2 of 25 mg pill). Caution titration given she has dealt with low blood pressures in the recent past. If she needs a new script we can send as it appears she has not taken in a couple of months. Joseph Vazquez MD * Telephone Encounter - Cori Moffett LPN - 04/01/2025 12:48 PM EDT Callplaced to patient. Below message given. Patient verbalized understanding. Patient confirmed she is currently only taking carvedilol. * Telephone Encounter - Cori Moffett LPN - 04/01/2025 12:47 PM EDT ----- Message from Joseph Vazquez MD sent at 03/29/2025 8:57 AM EDT ----- Echocardiogram largely stable. Need to get blood pressure under tighter control. Can we please reach out to determine which BP meds the patient is currently taking. Appears losartan was recently discontinued and carvedilol may be only current BP medication. Thanks, Joseph Vazquez MD documented in this encounter Plan of Treatment Upcoming Encounters Date Type Department Care Team (Late st Contact Info) Description 04/03/2025 10:00 AM EDT Laboratory Laboratory, [address] [place] [phone] [facility] [address] [place] [address] 04/03/2025 4:40 PM EDT Office Visit [facility] [address] [place] [phone] Joseph Vazquez MD 226 [facility] [place] [address] 04/04/2025 9:30 AM EDT Immunization/Injecti on Hematology/Oncology Treatment, [place] [address] [facility] [phone] Nimo, Chair 10 Hem On[address] [place] [address] 04/04/2025 9:30 AM EDT Pharmacy Pharmacy Hematology Oncology [facility] [address] [place] [address] [facility], [facility] Hem/Onc [address] [place] [address] 04/23/2025 9:45 AM EDT Imaging Radiology [address] [place] [phone] 05/03/2025 9:00 AM EDT Office Visit Hematology/Oncology [facility] [address] [facility] [place] [phone] Marquis Christiansen MD [address] [facility] [place] [address] 06/24/2025 8:30 AM EDT Office Visit Cardiology, [facility] [address] [place] [phone] Homar Ware PA-C [address] [place] [address] Scheduled Procedures Name Priority Associated Diagnoses Date/Ti [...] Not on filedocumented as of this encounter Advance Directives * Full Code [...] Discussed due to patient's condition Care Teams Table Saw Operator Relationship Specialty Start Date End Date March, Joseph Vasquez MD [address] [facility] [place] [address] PCP - General Family Medicine 03/04/25 documented as of this encounter
--- OUTSIDE RECORDS SUMMARY | 2025-04-07 11:36 | External Medical Summary ---
Author Name Unknown Address Unknown Organization [facility] [place] [address] Laboratory Report Ordering Provider Test Date Status LEANDRADINESH 04/02/2025 12:59:29 Final Observation Date Value Abnormality Reference (Units ) Status Phosphate 04/02/2025 12:59:29 2.5 2.5-4.8 (m g/dL) Final Performing Location [facility] [place] [address]
--- OUTSIDE RECORDS SUMMARY | 2025-04-07 11:36 | External Medical Summary ---
Author Name Unknown Address Unknown Organization [facility] [place] [place] [address] Laboratory Report Ordering Provider Test Date Status DINESH MOBLEY 04/02/2025 12:59:29 Final Observation Date Value Abnormality Reference (Units ) Status WBC, Total 04/02/2025 12:59:29 6.07 4.00-10.8 0 (K/uL) Final RBC 04/02/2025 12:59:29 3.07 3.85-5.15 (M/uL) Final Hemoglobin 04/02/2025 12:59:29 10.8 Below low normal 12 .0-15.3 (g/dL) Final HCT 04/02/2025 12:59:29 32.5 Below low normal 36. 0-45.2 (%) Final MCV 04/02/2025 12:59:29 105.9 81.5-97.5 (fL) Final MCH 04/02/2025 12:59:29 35.2 27.0-34.0 (pg) Final MCHC 04/02/2025 12:59:29 33.2 32.0-36.0 (g/dL) Final RDW 04/02/2025 12:59:29 17.0 11.5-15.5 (%) Final Platelets 04/02/2025 12:59:29 169 140-400 (K /uL) Final MPV 04/02/2025 12:59:29 10.3 6.6-11.1 ( fL) Final Performing Location [facility] [address]
--- OUTSIDE RECORDS SUMMARY | 2025-04-07 11:36 | External Medical Summary | Summary of Care ---
Author Name Unknown Organization [facility] Address [address] [facility] [place] [address] Phone [phone] Care Team Providers Care Director Agricultural Services Name Role Phone Joseph Vazquez MD Primary Care Provider [phone] Reason for Visit * Reason Onset Date Comments Advice 04/01/2025 Christiansen Encounter Details Date Type Department Care Team (Late st Contact Info) Description 04/01/2025 Telephone Hematology/Oncology [facility] [place] [address] [facility] [place] [address] Services, Scheduling [address] [place] [address] Advice (Kuldip ) Allergies Active Allergy Reactions Criticality Noted Date [...] as of this encounter (statuses as of 04/01/2025) Medications COMBIGAN 0.2-0.5 % ophthalmic solution Instill [...] hemoglobin A1c goal of less than 7.0% ([facility]) Use up to twice times a [...] Active Additional Information Patient taking differently:20 mg [id number], Reported on 01/30/2025 Esomeprazole Magnesium 40 MG [...] hemoglobin A1c goal of less than 7.0% ([facility]) Use up to 2 times a day E11.9 100 Strip 5 01/14/20 25 Active OneTouch UltraSoft LancetsIndicatio ns:Type 2 diabetes mellitus with hemoglobin A1c goal of less than 7.0% ([facility]) Use as directed 2 times a day as needed for Hyperglycemia (high sugar) or Hypoglycemia (low sugar). 100 Each 5 01/14/20 25 Active Calcium 1200 9626-4674 MG-UNIT Oral Tablet Chewable Take 1 Tablet [...] as of this encounter (statuses as of 04/01/2025) Active Problems Problem Noted Date Diagnosed Date [...] as of this encounter (statuses as of 04/01/2025) Resolved Problems Problem Noted Date Diagnosed Date [...] as of this encounter (statuses as of 04/01/2025) Immunizations Name Administration Dates Next Due COVID-19 [...] encounter Miscellaneous Notes * Telephone Encounter - Sandra Kenyon OSA - 04/01/2025 10:02 AM EDT Pt was added to schedule * Telephone Encounter - Lj Kim RN - 04/01/2025 9:36 AM EDT Called patient, she states this is her week off and she has felt exhausted on treatment and off of treatment. Would like to discuss holding with Dr. Christiansen. Scheduling- please schedule patient for follow up tomorrow with Dr. Christiansen @ 1PM. Thank you. Ok to cancel follow up on 05/03. * Telephone Encounter - Soco Reid OSA - 04/01/2025 9:21 AM EDT Patient calling asking if she can skip her chemo this week due to fatigue. documented in this encounter Plan of Treatment Upcoming Encounters Date Type Department Care Team (Late st Contact Info) Description 04/02/2025 1:00 PM EDT Office Visit Hematology/Oncology [facility] [place] [address] [place] [phone] Marquis Christiansen MD 200 [facility] [place] [address] 04/03/2025 10:00 AM EDT Laboratory Laboratory, [facility] [address] [place] [phone] [facility] [address] [place] [address] 04/04/2025 9:30 AM EDT Immunization/Injecti on Hematology/Oncology Treatment, [place] [address] [facility] [place] [phone] N[place], Chair [address] [place] [address] 04/04/2025 9:30 AM EDT Pharmacy Pharmacy Hematology Oncology [place] [address] [place] [address] [facility], [facility] Hem/Onc [address] [place] [address] 04/23/2025 9:45 AM EDT Imaging Radiology [facility] 1st Floor, [place] [address] [place] [phone] 05/03/2025 9:00 AM EDT Office Visit Hematology/Oncology [facility] [address] [place] [phone] Marquis Christiansen MD [address] [place] [address] 06/24/2025 8:30 AM EDT Office Visit Cardiology, [facility] [address] [place] [phone] Homar Ware PA-C [address] [place] [address] Scheduled Procedures Name Priority Associated Diagnoses Date/Ti [...] from 08/12/2017 (Patient Declined After Education) GFR 03/07/2026 03/07/2025, 01/19, 01/07/2025, Additional history exists Colonoscopy 02/28/2028 02/27/2018, 07/2018, [...] Discussed due to patient's condition Care Teams Director Agricultural Services Relationship Specialty Start Date End Date March, Joseph Vasquez MD [address] [place] [address] PCP - General Family Medicine 03/04/25 documented as of this encounter
--- OUTSIDE RECORDS SUMMARY | 2025-04-07 11:36 | External Medical Summary | Summary of Care ---
Author Name Unknown Organization [facility] Address [address] [facility] [place] [address] Phone [phone] Care Team Providers Care Counter Installer Name Role Phone MarchJoseph MD Primary Care Provider Reason for Visit * Reason Onset Date Comments Medication Management 04/01/2025 Encounter Details Date Type Department Care Team (Late st Contact Info) Description 04/01/2025 Telephone [facility] [place] [address] [place] [phone] MarchJoseph MD [address] [place] [address] Medication Management Allergies Active Allergy [...] Active Additional Information Patient taking differently:20 mg [id number], Reported on 01/30/2025 Esomeprazole Magnesium 40 MG [...] hemoglobin A1c goal of less than 7.0% ([facility]) Use up to 2 times a day E11.9 100 Strip 5 01/14/20 Active OneTouch UltraSoft LancetsIndicatio ns:Type 2 diabetes mellitus with hemoglobin A1c goal of less than 7.0% ([facility]) Use as directed 2 times a day as needed for Hyperglycemia (high sugar) or Hypoglycemia (low sugar). 100 Each 5 01/14/20 Active Calcium 1200 5540-9560 MG-UNIT Oral Tablet Chewable Take 1 Tablet [...] Hyperlipidemia with target LDL less than 100 04/19/201 3 09/21/2017 Overview (03/22/2016): ICD-10 update of [...] encounter Miscellaneous Notes * Telephone Encounter - Joseph Vazquez MD [...] 04/02/2025 1:00 PM EDT Office Visit Hematology/Oncology [address] [place] [phone] Carlene Alcantara CRNP [address] [facility] [address] 04/03/2025 10:00 AM EDT Laboratory Laboratory, Brigid Cruz 226 [facility] [place] [phone] Mavis Rainey [address] [place] [address] 04/04/2025 9:30 AM EDT Immunization/Injecti on Hematology/Oncology Treatment, [place] [facility] [phone] Nimo, Chair [address] [place] [address] 04/04/2025 9:30 AM EDT Pharmacy Pharmacy Hematology Oncology [facility] [place] [address] [place] [address] [facility] Hem/Onc [address] [place] [address] 04/23/2025 9:45 AM EDT Imaging Radiology [facility] 1st [facility] [address] [place] [address] 05/03/2025 9:00 AM EDT Office Visit Hematology/Oncology [facility] [address] [place] [phone] Marquis Christiansen MD [address] [place] [address] 06/24/2025 8:30 AM EDT Office Visit Cardiology, [facility] [address] [place] [phone] Homar Ware PA-C [address] [place] [address] Scheduled Procedures Name Priority Associated Diagnoses Date/Ti [...] Discussed due to patient's condition Care Teams Counter Installer Relationship Specialty Start Date End Date March, Joseph Vasquez MD 226 [facility] [place] [address] PCP - General Family Medicine 03/04/25 documented as of this encounter
--- OUTSIDE RECORDS SUMMARY | 2025-04-07 11:36 | External Medical Summary | Summary of Care ---
Author Name Unknown Organization [facility] Address [address] [facility] [place] [place] [address] Phone [phone] Care Team Providers Care Data Modeling Architect Name Role Phone MarchJoseph MD Primary Care Provider [phone] Reason for Visit * Reason Onset Date Comments Medication Management 04/01/2025 Encounter Details Date Type Department Care Team (Late st Contact Info) Description 04/01/2025 Telephone [facility] [place] [address] [place] [phone] MarchJoseph MD [address] [place] [address] Medication Management Allergies Active Allergy [...] Active Additional Information Patient taking differently:20 mg [id number], Reported on 01/30/2025 Esomeprazole Magnesium 40 MG [...] sugar). 100 Each 01/14/20 Active Calcium 1200 2125-8739 MG-UNIT Oral Tablet Chewable Take 1 Tablet [...] [address] [place] [phone] Brigid [facility] [address] [place] [address] 04/03/2025 4:40 PM EDT Office Visit [facility] Mariana Jones [address] [place] [phone] Joseph Vazquez MD 226 [facility] [place] [address] 04/04/2025 9:30 AM EDT Immunization/Injecti on Hematology/Oncology Treatment, [place] [facility] [phone] [place], Chair [address] Hem On[address] [place] [address] 04/04/2025 9:30 AM EDT Pharmacy Pharmacy Hematology Oncology [facility] [address] [place] [address] [facility] Hem/Onc [address] [place] [address] 04/23/2025 9:45 AM EDT Imaging Radiology [address] [place] [phone] 05/03/2025 9:00 AM EDT Office Visit Hematology/Oncology [facility] 200 [facility] [place] [phone] Marquis Christiansen MD 200 [facility] [place] [address] 06/24/2025 8:30 AM EDT Office Visit Cardiology, [facility] [address] [place] [phone] Homar Ware PA-C [address] [place] [address] Scheduled Procedures Name Priority Associated Diagnoses Date/Ti [...] Discussed due to patient's condition Care Teams Data Modeling Architect Relationship Specialty Start Date End Date March, Joseph Vasquez MD [address] [facility] [place] [address] PCP - General Family Medicine 03/04/25 documented as of this encounter
--- OUTSIDE RECORDS SUMMARY | 2025-04-07 11:36 | External Medical Summary | Summary of Care ---
Author Name Unknown Organization [facility] Address [address] [facility] [place] [address] Phone [phone] Care Team Providers Care Supervisory Aide Name Role Phone Joseph Vazquez MD Primary Care Provider [phone] Reason for Visit * Reason Comments Acute Patient is here due to concerns of depression. Patient was seen at her oncologist recently and thought it was a good idea to contact PCP. She has been struggling with depression for a while but it has progressively gotten worse. Has been taking her cymbalta regularly.Patient is also struggling a bit with anxiety. 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 100 Each 01/14/20 Active Calcium 1200 4264-7736 MG-UNIT Oral Tablet Chewable Take 1 Tablet [...] not crush or cut.. 28 Tablet 5 2:01 PM EDT 01/29/20 25 Active Additional [...] not crush or cut.. 84 Tablet 5 2:01 PM EDT 01/29/20 25 Active Additional [...] for Sleep. 30 Tablet 04/03/20 25 Active Losartan Potassium 25 MG Oral Tablet (Cozaar)Indicati ons:HTN, goal below 140/90 Take 0.5 Tablets by mouth daily. 45 Tablet 3 01/11/20 25 025 Discontin ued(Medic ation List Clean Up) Hospital, Clinic, or Other Facility Administered Medication [...] on file documented as of this encounter Last Filed Vital Signs Vital Sign Reading Time Taken Comments Blood Pressure 163/90 04/03/2025 4:40 PM EDT Pulse 74 04/03/2025 4:40 PM EDT Temperature 35.2 °C (95.4 °F) 04/03/2025 4:40 PM ED T Respiratory Rate 16 04/03/2025 4:40 PM EDT Oxygen Saturation 94% 04/03/2025 4:40 PM EDT Inhaled Oxygen Concentration - - Weight 98.2 kg (216 lb 9.6 oz) 04/03/2025 4:40 P M EDT Height 162.6 cm (5' 4") 04/03/2025 4:40 PM EDT Body Mass Index 37.18 04/03/2025 4:40 PM EDT documented in this encounter Progress Notes * Joseph Vazquez MD - 04/03/2025 5:18 PM EDT Images from the original note were not included. Subjective Sarah Burgos is a 69 year old female that presents for Acute (Patient is here due to concerns of depression. Patient was seen at her oncologist recently and thought it was a good idea to contact PCP. She has been struggling with depression for a while but it has progressively gotten worse. Has been taking her cymbalta regularly./Patient is also struggling a bit with anxiety. /Patient is here with daughter) History of Present Illness Sarah Burgos is a 69 year old female with depression who presents for an acute visit due to worsening depression. She has been experiencing worsening depression since the beginning of the year, coinciding with thediscovery that her last chemotherapy medication for metastatic breast cancer was not effective. Shefeels 'really down and out' and has been having significant issues since starting her new regimen of medicines. She has been on Cymbalta 60 mg daily for a long time, which she believes helped during her previous cancer treatment, but she is currently struggling with increased depression and anxiety. She has a history of trying multiple antidepressants including Zoloft, Prozac, Celexa, Lexapro, Wellbutrin, and Effexor, none of which provided significant relief. She recalls a previous attempt to discontinue Cymbalta, which resulted in a negative experience, making her hesitant to change her current medication regimen. She reports increased anxiety and has tried Ativan in the past, which was not well tolerated. She describes feeling extra tired after her last round of oral chemotherapy. She wants to take a break from chemotherapy to see if her symptoms improve. She is experiencing significant sleep disturbances, stating 'I don't sleep' and noting a change from previously sleeping all the time. No current use of sleep medications but has heard of trazodone as a potential option. Her blood pressure has been variable, with recent readings of 113/70 and 133/78. She has a history of low blood pressure when on losartan, leading to dizziness and near syncope, and is currently not on any antihypertensive medication. Objective BP 163/90 (BP Site: Right Arm, BP Position: Sitting) | Pulse 74 | Temp 95.4 °F (35.2 °C) (Tympanic) | Resp 16 | Ht 5' 4" (1.626 m) | Wt 216 lb 9.6 oz (98.2 kg) | SpO2 94% | BMI 37.18 kg/m² | BSA 2.11 m² Physical Exam Physical Exam Vitals reviewed. Constitutional: General: She is not in acute distress. Pulmonary: Effort: Pulmonary effort is normal. No respiratory distress. Neurological: General: No focal deficit present. Mental Status: She is alert. Psychiatric: Comments: Flat affect. Results LABS Phosphorus: decreased by half (04/02/2025) Assessment and Plan Assessment & Plan Metastatic breast cancer Undergoing chemotherapy with recent regimen changes due to previous treatment ineffectiveness. Experiencing significant fatigue and mood changes, potentially related to cancer treatment and depression. Discussed potential chemotherapy break for symptom management and quality of life improvement. - Continue current chemotherapy regimen as per oncology recommendations. - Consider chemotherapy break if symptoms become unmanageable, as discussed with oncology team. Depression Chronic depression with increased symptoms since chemotherapy regimen changes. Cymbalta 60 mg dailyis the most effective medication. Discussed Wellbutrin and trazodone for augmentation. Emphasized safe treatment plan, avoiding abrupt Cymbalta changes due to withdrawal risks. - Continue Cymbalta 60 mg daily. - Initiate Wellbutrin XL 150 mg daily to augment Cymbalta. - Prescribe trazodone 25 mg, 30 tablets, as needed for sleep. Recommend starting with half a tabletand adjusting as needed. - Discuss potential referral to oncology psychologist via telehealth or local counseling services for additional support. Hypertension Blood pressure management complicated by fluctuating fluid volumes and orthostatic hypotension during chemotherapy. Recent readings show variability with concern for hypotension. - Monitor blood pressure at home, especially if symptomatic. - Hold on starting losartan due to risk of hypotension. - Communicate with healthcare team if blood pressure becomes consistently high or symptomatic. Visit Diagnoses and Orders 1. Major depressive disorder, recurrent episode, moderate (HCC) buPROPion HCl ER (XL) 150 MG Oral Tablet Extended Release 24 Hour (Wellbutrin XL) 2. Primary insomnia traZODone HCl 50 MG Oral Tablet (Desyrel) 3. 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 HTN, goal below 140/90 Wrap-Up Follow Up: Return if symptoms worsen or fail to improve. Text in this note was generated using an [employer] documentation service. I discussed the use of a device to record and summarize our discussion today. All persons present during the encounter consented to its use. documented in this encounter Nursing Notes * Lin Merlos MED ASSIST - 04/03/2025 4:41 PM EDT The patient has been properly identified by confirmation of name and date of . Chief Complaint Patient presents with Acute Patient is here due to concerns of depression. Patient was seen at her oncologist recently and thought it was a good idea to contact PCP. She has been struggling with depression for a while but it has progressively gotten worse. Has been taking her cymbalta regularly. Patient is also struggling a bit with anxiety. Patient is here with daughter documented in this encounter Plan of Treatment Upcoming Encounters Date Type Department Care Team (Late st Contact Info) Description 04/04/2025 9:30 AM EDT Pharmacy Pharmacy Hematology Oncology [facility] [place] [address] [place] [address] [facility] Hem/Onc [address] [place] [address] 04/23/2025 9:45 AM EDT Imaging Radiology [facility] 1st [facility] [address] [place] [phone] 05/03/2025 9:00 AM EDT Office Visit Hematology/Oncology [facility] [address] [place] [address] Marquis Christiansen MD [address] [place] [address] 06/24/2025 8:30 AM EDT Office Visit Cardiology, [facility] [address] [place] [phone] Homar Ware PA-C [address] [place] [address] Scheduled Procedures Name Priority Associated Diagnoses Date/Ti [...] 02/04/2025, Additional history exists Colonoscopy 02/28/2028 02/27/2018, 040 07/2018, 03/21/2012, Additional history exists Colorectal Cancer [...] as of this encounter Visit Diagnoses Diagnosis Major depressive disorder, recurrent episode, moderate (HCC)- Primary Major depressive disorder, recurrent episode, moderate Primary insomnia Persistent disorder of initiating or maintaining sleep 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
--- OUTSIDE RECORDS SUMMARY | 2025-04-07 11:36 | External Medical Summary ---
Author Name Unknown Address Unknown Organization [facility] [place] [address] Laboratory Report Ordering Provider Test Date Status DINESH MOBLEY 04/02/2025 12:59:29 Final Observation Date Value Abnormality Reference (Units ) Status SYNC LEUKOCYTES IN BLOOD BY AUTOMATED COUNT 04/02/2025 12:59:29 6.07 4.00-10.80 (K/uL) Final Segs 04/02/2025 12:59:29 74.1 40.0-75.0 (%) Final Lymphs % 04/02/2025 12:59:29 13.0 Below low normal 18.0-42.0 (%) Final Monos 04/02/2025 12:59:29 9.4 1.0-11.0 (%) Final Eosinophils 04/02/2025 12:59:29 3.0 0.0-6.0 (%) Final Basos 04/02/2025 12:59:29 0.5 0.0-2.0 (%) Final Absolute Segs 04/02/2025 12:59:29 4.50 1.80-7.70 (K/uL) Final Lymphs, absolute 04/02/2025 12:59:29 0.79 Below low normal 1.00-4.80 (K/ul) Final Monos, Abs 04/02/2025 12:59:29 0.57 0.00-1.10 (K/uL) Final Eos, Abs 04/02/2025 12:59:29 0.18 0.00-0.70 (K/uL) Final Basos, Abs 04/02/2025 12:59:29 0.03 0.00-0.20 (K/uL) Final Performing Location [facility] [place] [address]
--- OUTSIDE RECORDS SUMMARY | 2025-04-07 11:36 | External Medical Summary | Summary of Care ---
Author Name Unknown Organization [facility] Address [address] [facility] [address] Phone [phone] Care Team Providers Care Coil Finisher Name Role Phone MarchJoseph MD Primary Care Provider [phone] Reason for Visit * Reason Onset Date Comments Medication Management 04/01/2025 Encounter Details Date Type Department Care Team (Late st Contact Info) Description 04/01/2025 [facility]phone [facility] [address] [place] [address] MarchJoseph MD [address] [place] [address] Medication Management Allergies Active Allergy [...] Active Additional Information Patient taking differently:20 mg [id number], Reported on 01/30/2025 Esomeprazole Magnesium 40 MG [...] hemoglobin A1c goal of less than 7.0% ([facility]) Use up to 2 times a day E11.9 100 Strip 5 01/14/20 Active OneTouch UltraSoft LancetsIndicatio ns:Type 2 diabetes mellitus with hemoglobin A1c goal of less than 7.0% ([facility]) Use as directed 2 times a day as needed for Hyperglycemia (high sugar) or Hypoglycemia (low sugar). 100 Each 5 01/14/20 Active Calcium 1200 2557-4332 MG-UNIT Oral Tablet Chewable Take 1 Tablet [...] 04/02/2025 1:00 PM EDT Office Visit Hematology/Oncology [address] [place] [address] Carlene Alcantara CRNP [facility] [address] 04/03/2025 10:00 AM EDT Laboratory Laboratory, Brigid Cruz 226 [facility] [place] [phone] Mavis Rainey [address] [place] [address] 04/04/2025 9:30 AM EDT Immunization/Injecti on Hematology/Oncology Treatment, [place] [facility] [address] Nimo, Chair [address] Hem On[address] [place] [address] 04/04/2025 9:30 AM EDT Pharmacy Pharmacy Hematology Oncology [facility] [place] [address] [place] [address] [facility] [place], [facility] Hem/Onc [address] [place] [address] 04/23/2025 9:45 AM EDT Imaging Radiology [facility] 1st [facility] [address] [place] [address] 05/03/2025 9:00 AM EDT Office Visit Hematology/Oncology [facility] [address] [place] [address] Marquis Christiansen MD [address] [place] [address] 06/24/2025 8:30 AM EDT Office Visit Cardiology, [facility] [address] [place] [phone] Homar Ware PA-C [address] [place] [address] Scheduled Procedures Name Priority Associated Diagnoses Date/Ti [...] Discussed due to patient's condition Care Teams Coil Finisher Relationship Specialty Start Date End Date March, Joseph Vasquez MD 226 [facility] [place] [address] PCP - General Family Medicine 03/04/25 documented as of this encounter
--- OUTSIDE RECORDS SUMMARY | 2025-04-07 11:36 | External Medical Summary ---
Author Name Unknown Address Unknown Organization K09:[facility] [address] [place] [address] Laboratory Report Ordering Provider Test Date Status DINESH MOBLEY 04/02/2025 12:59:29 Final Observation Date Value Abnormality Reference (Units ) Status BUN 04/02/2025 12:59:29 9 6-20 (mg/dL) Final Creatinine 04/02/2025 12:59:29 0.6 0.5-1.0 (mg/dL) Final Glomerular filtration rate/1.73 sq M.predicted [Volume Rate/Area] in Serum, Plasma or Blood by Creatinine-based formula (CKD-EPI) 04/02/2025 12:59:29 >90 >=60 (mL/min) Final eGFR is calculated based on the CKD-EPI 2020 equation. Sodium 04/02/2025 12:59:29 140 135-146 (m mol/L) Final Potassium 04/02/2025 12:59:29 4.0 3.5-5.1 (m mol/L) Final Cl 04/02/2025 12:59:29 105 98-107 (mm ol/L) Final CO2 04/02/2025 12:59:29 22 22-32 (mmo l/L) Final Anion gap 04/02/2025 12:59:29 13 7-15 (mmol /L) Final Glucose 04/02/2025 12:59:29 143 Above high normal 70 -120 (mg/dL) Final Albumin 04/02/2025 12:59:29 4.1 3.8-5.0 (g /dL) Final AST (Aspartate aminotransferase) 04/02/2025 12:59:29 51 Above high normal 10-35 (U/L) Final Alk Phos 04/02/2025 12:59:29 292 Above high normal 35 -130 (U/L) Final Bilirubin, Total 04/02/2025 12:59:29 1.2 <=1 .2 (mg/dL) Final Calcium 04/02/2025 12:59:29 7.6 Below low normal 8.4 -10.2 (mg/dL) Final Protein 04/02/2025 12:59:29 6.8 6.0-8.3 (g /dL) Final ALT (Alanine aminotransferase) 04/02/2025 12:59:29 21 10-35 (U/L) Charan bridges Performing Location [facility] [address] [place] [address]
--- OUTSIDE RECORDS SUMMARY | 2025-04-07 11:37 | External Medical Summary | Summary of Care ---
Author Name Unknown Organization [facility] Address [address] [facility] [place] [address] Phone [phone] Care Team Providers Care Bus System Operator Name Role Phone Joseph Vazquez MD Primary Care Provider [phone] Encounter Details Date Type Department Care Team (Late st Contact Info) Description 03/25/2025 Telephone Pre Surgery Center, [facility] [address] [place] [address] Francisco Rubio MD [address] [place] [address] Allergies Active Allergy Reactions Criticality Noted Date [...] as of this encounter (statuses as of 03/26/2025) Medications COMBIGAN 0.2-0.5 % ophthalmic solution Instill [...] hemoglobin A1c goal of less than 7.0% ([facility]) Use up to twice times a day E11.9 1 Kit 04/15/20 22 Active Albuterol Sulfate HFA 108 (90 Base) MCG/ACT Inhalation Aerosol Solution Inhale 2 Puffs by mouth every 6 hours as needed for Shortness of Breath or Wheezing. 8.5 g 11 11/25/19 24 Active Vitamin E 200 UNIT Oral Tablet [...] Active Additional Information Patient taking differently:20 mg [id number], Reported on 01/30/2025 Esomeprazole Magnesium 40 MG [...] sugar). 100 Each 01/14/20 Active Calcium 1200 2865-3555 MG-UNIT Oral Tablet Chewable Take 1 Tablet [...] not crush or cut.. 28 Tablet 5 02/28/2025 3:12 PM EDT 01/29/20 25 Active Additional Information [...] not crush or cut.. 84 Tablet 5 02/28/2025 3:12 PM EDT 01/29/20 25 Active Additional Information [...] morning. 90 Capsule 3 03/25/20 25 Active Hospital, Clinic, or Other Facility Administered Medication Ordered Dose Route Frequency Start Date End Date Status albuterol sulfate (PROVENTIL) (2.5 MG/3ML) 0.083% inhalation solution 2.5 mgIndications:Restrictive lung disease,SOB (shortness of breath) 2.5 mg NEBULIZER Q4H PRN 11/07/2017 Act roe documented as of this encounter (statuses as of 03/26/2025) Active Problems Problem Noted Date Diagnosed Date [...] as of this encounter (statuses as of 03/26/2025) Resolved Problems Problem Noted Date Diagnosed Date [...] as of this encounter (statuses as of 03/26/2025) Immunizations Name Administration Dates Next Due COVID-19 [...] encounter Miscellaneous Notes * Telephone Encounter - Quin Hoyt OSA - 03/26/2025 8:52 AM EDT Left detailed msg that procedure has been canceled and that she will need to call us back to r/s once she has her Echo r/s'd REMBERTO Lugo 03/26/2025 8:53 AM * Telephone Encounter - Vilma Villalobos RN - 03/25/2025 3:47 PM EDT This patient is scheduled for colonoscopy on 04-01-[address] Rubio patient will need echo completed and resulted prior to procedure The patient`s echo was scheduled for 03-14-24 and cancelled dueto illness and has not been rescheduled I did attempt to contact patient and left message on VM to return documented in this encounter Plan of Treatment Upcoming Encounters Date Type Department Care Team (Late st Contact Info) Description 04/03/2025 10:00 AM EDT [facility] [address] [facility] [place] [address] [facility] 226 [facility] [place] [address] 04/04/2025 9:30 AM EDT Immunization/Injecti on Hematology/Oncology Treatment, [place] 200 [facility] [phone] Nimo, Chair 10 Hem On[address] [place] [address] 04/04/2025 9:30 AM EDT Pharmacy Pharmacy Hematology Oncology [facility] [address] [place] [address] [facility], [facility] Hem/Onc [address] [place] [address] 04/23/2025 9:45 AM EDT Imaging Radiology [place] 1st [facility] [address] [place] [phone] 05/03/2025 9:00 AM EDT Office Visit Hematology/Oncology [facility] Nimo [address] [place] [phone] Marquis Christiansen MD 200 [facility] [place] [address] 06/24/2025 8:30 AM EDT Office Visit Cardiology, [facility] [address] [place] [phone] Homar Ware PA-C [address] [place] [address] Scheduled Procedures Name Priority Associated Diagnoses Date/Ti [...] 09/27/2022, 0 12/09/2011, 03/02/2011, Additional history exists HPV (Gardasil) Vaccine Aged [...] Discussed due to patient's condition Care Teams Bus System Operator Relationship Specialty Start Date End Date March, Joseph Vasquez MD [address] [place] [address] PCP - General Family Medicine 03/04/25 documented as of this encounter
--- OUTSIDE RECORDS SUMMARY | 2025-04-07 11:37 | External Medical Summary | Summary of Care ---
Author Name Unknown Organization [facility] Address [address] [facility] [place] [address] Phone [phone] Care Team Providers Care Rn Or Lvn Name Role Phone MarchJoseph MD Primary Care Provider [phone] Reason for Visit * Reason Onset Date Comments Appointment 03/25/2025 Encounter Details Date Type Department Care Team (Late st Contact Info) Description 03/25/2025 Telephone [facility] [place] [address] [place] [address] MarchJoseph MD 226 [place] [address] Appointment Allergies Active Allergy Reactions Criticality Noted Date [...] as of this encounter (statuses as of 03/27/2025) Medications COMBIGAN 0.2-0.5 % ophthalmic solution Instill [...] A1c goal of less than 7.0% ([facility]) Use up to twice times [...] Active Additional Information Patient taking differently:20 mg [id number], Reported on 01/30/2025 Esomeprazole Magnesium 40 MG [...] sugar). 100 Each 01/14/20 Active Calcium 1200 6475-0503 MG-UNIT Oral Tablet Chewable Take 1 Tablet [...] as of this encounter (statuses as of 03/27/2025) Active Problems Problem Noted Date Diagnosed Date [...] as of this encounter (statuses as of 03/27/2025) Resolved Problems Problem Noted Date Diagnosed Date [...] as of this encounter (statuses as of 03/27/2025) Immunizations Name Administration Dates Next Due COVID-19 [...] encounter Miscellaneous Notes * Telephone Encounter - Lj Lenz OSA - 03/27/2025 10:59 AM EDT Appt has been scheduled on: March Appt at 2:30 PM (1 hr) CORRECTIONAL CASEWORK SPECIALIST 2 GW * Telephone Encounter - Scooby Mcmahon RN - 03/27/2025 10:24 AM EDT Pt agrees to 03/28 at 2:30 pm as an override on the Tech 2 schedule for her echo. Schedule please assist, thank you. Ed Salome decision unit rn Testing Nurse * Telephone Encounter - Scooby Mcmahon RN - 03/26/2025 4:30 PM EDT Called pt on her mobile ph and LVM offering tue or March 27 or at 2:30 pm. Scooby Mcmahon RN * Telephone Encounter - Lj Lenz OSA - 03/25/2025 4:01 PM EDT Patient needs a sooner ECHO before her procedure on 04/01/25. Anesthesia is requesting this to be done before the procedure, patient did have to cancel the first ECHO appt because of her chemo appts. Spoke with senior network engineer, and she is aware that the procedure may have to be postponed, if the ECHO cannot be done before 04/01/25. Please advise, thank you. documented in this encounter Plan of Treatment Upcoming Encounters Date Type Department Care Team (Late st Contact Info) Description 03/28/2025 2:30 PM EDT Cardiac Studies Cardiac Studies, [facility] [address] [place] [phone] 04/03/2025 10:00 AM EDT Laboratory Laboratory, Brigid Peña 226 [facility] [place] [phone] [facility] 226 [facility] [place] [address] 04/04/2025 9:30 AM EDT Immunization/Injecti on Hematology/Oncology Treatment, [place] [address] [place] [phone] Nimo, Chair 10 Hem Onc [address] [place] [address] 04/04/2025 9:30 AM EDT Pharmacy Pharmacy Hematology Oncology [facility] [place] [address] [place] [address] [facility], [facility] Hem/Onc [address] [place] [address] 04/23/2025 9:45 AM EDT Imaging Radiology [facility] 1st [facility] [address] [place] [address] 05/03/2025 9:00 AM EDT Office Visit Hematology/Oncology [facility] [address] [place] [address] Marquis Christiansen MD [address] [place] [address] 06/24/2025 8:30 AM EDT Office Visit Cardiology, [facility] [address] [place] [phone] Homar Ware PA-C [address] [place] [address] Scheduled Procedures Name Priority Associated Diagnoses Date/Ti [...] 01/07/2025, Additional history exists Colonoscopy 02/28/2028 02/27/2018, 0407/2018, 03/21/2012, Additional history exists Colorectal Cancer Screening [...] Discussed due to patient's condition Care Teams Rn Or Lvn Relationship Specialty Start Date End Date March, Joseph Vasquez MD [address] [place] [address] PCP - General Family Medicine 03/04/25 documented as of this encounter
--- OUTSIDE RECORDS SUMMARY | 2025-04-07 11:37 | External Medical Summary | Summary of Care ---
Author Name Unknown Organization [facility] Address [address] [facility] [address] Phone [phone] Care Team Providers Care Body Shop Mechanic Name Role Phone Joseph Vazquez MD Primary Care Provider [phone] Reason for Visit * Reason Comments Medication Administration Vitamin B12 1, 000mcgXgeva 120mg * Episode Based Medications (Routine) - Authorized Specialty Diagnoses / Procedures Referred By Contac t Referred To Contact Diagnoses Malignant neoplasm of upper-outer quadrant of left breast in female, estrogen receptor positive (HCC) Procedures DE DENOSUMAB INJECTION Marquis Christiansen MD [address] [place] [address] [place] [address] Phone: tel: fax: Hematology/Oncology Treatment, [address] [address] Phone: tel: fax: Referral ID Status Reason Start Date Expiration Date V isits Requested Visits Authorized [id number] Authorized 03/16/2024 03/17/[phone] Encounter Details Date Type Department Care Team (Late st Contact Info) Description 03/08/2025 9:30 AM EDT Immunization/I njection Hematology/Oncology Treatment, [address] [address] Nimo, Chair [address] Hem On[address] [place] [address] Malignant neoplasm of upper-outer quadrant of left breast in female, estrogen receptor positive (HCC)*; B12 deficiency Allergies Active Allergy Reactions Criticality Noted Date [...] as of this encounter (statuses as of 03/30/2025) Medications COMBIGAN 0.2-0.5 % ophthalmic solution Instill [...] goal of less than 7.0% ([facility]) Use up to twice times [...] Active Additional Information Patient taking differently:20 mg [id number], Reported on 01/30/2025 Esomeprazole Magnesium 40 MG [...] hours as needed for Nausea. 30 Tablet 12/14/19 25 Active Montelukast Sodium 10 MG Oral Tablet (Singulair)Indic ations:Chronic cough TAKE 1 TABLET BY MOUTH EVERY MORNING 90 Tablet 01/09/20 25 Active Losartan Potassium 25 MG Oral Tablet (Cozaar)Indicati ons:HTN, goal below 140/90 Take 0.5 Tablets by mouth daily. 45 Tablet 01/11/20 25 Active Additional Information Patient not taking.Reported on 01/30/2025 Fluticasone Propionate 50 MCG/ACT Nasal Suspension (Flonase)Indicat ions:Dysfunction of Eustachian tube, bilateral USE 2 SPRAYS IN EACH NOSTRIL ONCE DAILY IF NEEDED FOR CONGESTION 48 g 1 01/12/20 Active EnStorageTouch Verio In Vitro Strip (Glucose Blood)Indication s:Type 2 diabetes mellitus with hemoglobin A1c goal of less than 7.0% (HCC) Use up to 2 times a day E11.9 100 Strip 01/14/20 Active EnStorageTouch UltraSoft LancetsIndicatio ns:Type 2 diabetes mellitus with hemoglobin A1c goal of less than 7.0% (HCC) Use as directed 2 times a day as needed for Hyperglycemia (high sugar) or Hypoglycemia (low sugar). 100 Each 01/14/20 Active Calcium 1200 0064[address] MG-UNIT Oral Tablet Chewable Take 1 Tablet [...] not crush or cut.. 28 Tablet 5 5 2:01 PM EDT 01/29/20 25 Active [...] 84 Tablet 5 2:01 PM EDT 01/29/20 Active Additional Information Patient not taking.Reported on 01/30/2025 Albuterol Sulfate HFA 108 (90 Base) MCG/ACT Inhalation Aerosol Solution Inhale 2 Puffs by mouth every 6 hours as needed for Shortness of Breath or Wheezing. 8.5 g 11 11/25/19 24 025 Discontin ued(Refil l) DULoxetine HCl 60 MG Oral Capsule Delayed Release Particles (Cymbalta)Indica tions:Major depressive disorder, recurrent episode, moderate (HCC),Fibromyalg ia Take 1 Capsule by mouth in the morning. 90 Capsule 3 03/13/20 24 025 Discontin ued(Refil l) Linzess 290 MCG Oral Capsule (linaCLOtide) Take 1 Capsule by mouth daily before breakfast. 90 Capsule 3 01/31/20 25 025 Discontin ued(Medic ation List Clean Up) Gabapentin 300 MG Oral Capsule (Neurontin) Take 2 Capsules by mouth at bedtime. 60 Capsule 02/20/20 25 025 Discontin ued(Refil l) Hospital, Clinic, or Other Facility Administered Medication Ordered Dose Route Frequency Start Date End Date Status albuterol sulfate (PROVENTIL) (2.5 MG/3ML) 0.083% inhalation solution 2.5 mgIndications:Restrictive lung disease,SOB (shortness of breath) 2.5 mg NEBULIZER Q4H PRN 11/07/2017 Act roe documented as of this encounter (statuses as of 03/30/2025) Active Problems Problem Noted Date Diagnosed Date [...] as of this encounter (statuses as of 03/30/2025) Resolved Problems Problem Noted Date Diagnosed Date [...] Hyperlipidemia with target LDL less than 100 05/ 3 09/21/2017 Overview (03/22/2016): ICD-10 update of [...] as of this encounter (statuses as of 03/30/2025) Immunizations Name Administration Dates Next Due COVID-19 [...] on file documented as of this encounter Nursing Notes * Akiko Mayo LPN - 03/08/2025 9:47 AM EDT Calcium 8.9 Phosphorus 4.1 Patient denies any tooth, gum, or jaw pain. Xgeva 120mg administered SQ into the right upper extremity. Vitamin B12 1,000mcg administered IM into the right upper extremity. Patient tolerated injection and will return in 1 month for Xgeva and B12. Patient needs to return in [address] Christiansen and have PET [address] Christiansen Appointment. Also patient being scheduled for Ultrasound for today documented in this encounter Plan of Treatment Upcoming Encounters Date Type Department Care Team (Late st Contact Info) Description 04/03/2025 10:00 AM EDT Laboratory Laboratory, [place] [facility] 226 [place] [phone] [place], Laboratory 226 [facility] [place] [address] 04/04/2025 9:30 AM EDT Immunization/Injecti on Hematology/Oncology Treatment, [place] [address] [place] [address] Nimo, Chair 10 Hem Onc Scen[address] [place] [place] [address] 04/04/2025 9:30 AM EDT Pharmacy Pharmacy Hematology Oncology [facility] [address] [place] [address] [facility] Hem[facility]Onc [address] [place] [address] 04/23/2025 9:45 AM EDT Imaging Radiology [facility] 1st [facility] [address] [place] [phone] 05/03/2025 9:00 AM EDT Office Visit Hematology/Oncology [facility] 200 [facility] [place] [address] Marquis Christiansen MD 200 [facility] [place] [address] 06/24/2025 8:30 AM EDT Office Visit Cardiology, [facility] [address] [place] [phone] Homar Ware PA-C [address] [place] [address] Scheduled Procedures Name Priority Associated Diagnoses Date/Ti [...] 12/22/2009 Adult Wellness Visit 2021 Albumin/Creatinine Ratio 02/01/20242 023, 09/17/2019, 06/03/2014, Additional history exists COVID-19 [...] in female, estrogen receptor positive (HCC)- Primary B12 deficiency Other B-complex deficiencies documented in this encounter Administered Medications Inactive Administered Medications - up to 3 most recent administrations Medication Order MAR Action Action Date Dose Rate Site Denosumab (Xgeva) subcut inj 120 mg 120 mg, Subcutaneous, ONCE, On Tue03/08/25 at 0945, For 1 doseIndications:Malign ant neoplasm of upper-outer quadrant of left breast in female, estrogen receptor positive (HCC) Given 03/08/2025 9:41 AM EDT 120 mg Arm Right Upper Vitamin B-12 (Cyanocobalamin) inj 1,000 mcg 1,000 mcg, Intramuscular, ONCE, On Tue03/08/25 at 0930, For 1 doseIndications:B12 deficiency Given 03/08/2025 9:41 AM EDT 1,000 mcg Deltoid Right Upper documented in this encounter Advance [...] Discussed due to patient's condition Care Teams Body Shop Mechanic Relationship Specialty Start Date End Date March, Joseph Vasquez MD [address] [place] [address] PCP - General Family Medicine 03/04/25 documented as of this encounter
--- OUTSIDE RECORDS SUMMARY | 2025-04-07 11:37 | External Medical Summary | Summary of Care ---
Author Name Unknown Organization [facility] Address [address] [facility] [place] [address] Phone [phone] Care Team Providers Care Numerologist Name Role Phone MarchJoseph MD Primary Care Provider [phone] Reason for Visit * Reason Onset Date Comments Appointment 03/25/2025 Encounter Details Date Type Department Care Team (Late st Contact Info) Description 03/25/2025 [facility] [place] [address] [place] [address] MarchJoseph MD 226 [place] [address] Appointment Allergies Active Allergy Reactions [...] hemoglobin A1c goal of less than 7.0% ([facility]) Use up to twice times a day [...] Active Additional Information Patient taking differently:20 mg [id number], Reported on 01/30/2025 Esomeprazole Magnesium 40 MG [...] sugar). 100 Each 01/14/20 Active Calcium 1200 5849-8675 MG-UNIT Oral Tablet Chewable Take 1 Tablet [...] March Appt at 2:30 PM (1 hr) PROSTHETIC MAKEUP DESIGNER 2 GW * Telephone Encounter - Scooby Mcmahon RN - 03/27/2025 10:24 AM EDT Pt agrees to 03/28 at 2:30 pm as an override on the Tech 2 schedule for her echo. Schedule please assist, thank you. Ed Salome iron setter Testing Nurse * Telephone Encounter - Scooby [...] of her chemo appts. Spoke with senior reactor operator, and she is aware that the procedure may have to be postponed, if the ECHO cannot be done before 04/01/25. Please advise, thank you. documented in this encounter Plan of Treatment Upcoming Encounters Date Type Department Care Team (Late st Contact Info) Description 03/28/2025 2:30 PM EDT Cardiac Studies Cardiac Studies, [facility] [address] [place] [phone] 04/03/2025 10:00 AM EDT Laboratory Laboratory, Brigid Peña 226 [facility] [place] [phone] [facility] 226 [facility] [place] [address] 04/04/2025 9:30 AM EDT Immunization/Injecti on Hematology/Oncology Treatment, [place] [address] [place] [phone] Nimo, Chair 10 Hem Onc Scenery [address] [place] [address] 04/04/2025 9:30 AM EDT Pharmacy Pharmacy Hematology Oncology [facility] [place] [address] [place] [address] [facility] Hem/Onc [address] [place] [address] 04/23/2025 9:45 AM EDT Imaging Radiology [facility] 1st [facility] [address] [place] [address] 05/03/2025 9:00 AM EDT Office Visit Hematology/Oncology [facility] [address] [place] [address] Marquis Christiansen MD [address] [place] [address] 06/24/2025 8:30 AM EDT Office Visit Cardiology, [facility] [address] [place] [address] Homar Ware PA-C [address] [place] [address] Scheduled Procedures Name Priority Associated Diagnoses Date/Ti [...] Discussed due to patient's condition Care Teams Numerologist Relationship Specialty Start Date End Date March, Joseph Vasquez MD [address] [place] [address] PCP - General Family Medicine 03/04/25 documented as of this encounter
--- OUTSIDE RECORDS SUMMARY | 2025-04-07 11:37 | External Medical Summary | Summary of Care ---
Author Name Unknown Organization [facility] Address [address] [facility] [place] [address] Phone [phone] Care Team Providers Care Sawing And Assembly Supervisor Name Role Phone MarchBobby MD Primary Care Provider [phone] Reason for Visit * Reason Onset Date Comments Medication Refill 03/26/2025 Encounter Details Date Type Department Care Team (Late st Contact Info) Description 03/26/2025 Refill [facility] Mariana Jones [address] [place] [phone] MarchBobby MD 226 [place], [place] [phone] Allergies Active Allergy Reactions Criticality Noted Date [...] as of this encounter (statuses as of 03/28/2025) Medications COMBIGAN 0.2-0.5 % ophthalmic solution Instill [...] Active Additional Information Patient taking differently:20 mg [id number], Reported on 01/30/2025 Esomeprazole Magnesium 40 MG [...] A1c goal of less than 7.0% ([facility]) Use up to 2 times a day E11.9 100 Strip 5 01/14/20 Active OneTouch UltraSoft LancetsIndicatio ns:Type 2 diabetes mellitus with hemoglobin A1c goal of less than 7.0% ([facility]) Use as directed 2 times a day as needed for Hyperglycemia (high sugar) or Hypoglycemia (low sugar). 100 Each 5 01/14/20 Active Calcium 1200 0664-9637 MG-UNIT Oral Tablet Chewable Take 1 Tablet [...] crush or cut.. 28 Tablet 5 5 3:12 PM EDT 01/29/20 Active Additional Information Patient [...] not crush or cut.. 84 Tablet 5 5 3:12 PM EDT 01/29/20 25 Active Additional [...] Wheezing. 8.5 g 11 03/28/20 25 Active Albuterol Sulfate HFA 108 (90 Base) MCG/ACT Inhalation Aerosol Solution Inhale 2 Puffs by mouth every 6 hours as needed for Shortness of Breath or Wheezing. 8.5 g 11 11/25/19 24 025 Discontin ued(Refil l) Hospital, Clinic, or Other Facility Administered Medication Ordered Dose Route Frequency Start Date End Date Status albuterol sulfate (PROVENTIL) (2.5 MG/3ML) 0.083% inhalation solution 2.5 mgIndications:Restrictive lung disease,SOB (shortness of breath) 2.5 mg NEBULIZER Q4H PRN 11/07/2017 Act roe documented as of this encounter (statuses as of 03/28/2025) Active Problems Problem Noted Date Diagnosed Date [...] as of this encounter (statuses as of 03/28/2025) Resolved Problems Problem Noted Date Diagnosed Date [...] as of this encounter (statuses as of 03/28/2025) Immunizations Name Administration Dates Next Due COVID-19 [...] encounter Miscellaneous Notes * Telephone Encounter - Radha Jeong, [facility] - 03/28/2025 7:17 AM EDTSigned Prescriptions: Disp Refills Albuterol Sulfate HFA 108 (90 Base) MCG/AC*8.5 g 11 Sig: Inhale 2 Puffs by mouth every 6 hours as needed for Shortness of Breath or Wheezing.Authorizing Provider: BOBBY MCDOWELL User: RADHA JEONG documented in this encounter Plan of Treatment Upcoming Encounters Date Type Department Care Team (Late st Contact Info) Description 03/28/2025 2:30 PM EDT Cardiac Studies Cardiac Studies, [facility] [address] [place] [phone] 04/03/2025 10:00 AM EDT Laboratory [facility] [phone] [facility] 226 [place] [address] 04/04/2025 9:30 AM EDT Immunization/Injecti on Hematology/Oncology Treatment, [address] [address] Nimo, Chair [address] [place] [address] 04/04/2025 9:30 AM EDT Pharmacy Pharmacy Hematology Oncology [place] [address] [place] [address] [facility] Hem/Onc [address] [place] [address] 04/23/2025 9:45 AM EDT Imaging Radiology [facility] 1st [facility] [address] [place] [address] 05/03/2025 9:00 AM EDT Office Visit Hematology/Oncology [facility] [address] [place] [phone] Marquis Christiansen MD [address] [place] [address] 06/24/2025 8:30 AM EDT Office Visit Cardiology, [facility] [address] [place] [phone] Homar Ware PA-C [address] [place] [address] Scheduled Procedures Name Priority Associated Diagnoses Date/Ti [...] 01/07/2025, Additional history exists Colonoscopy 02/28/2028 02/27/2018, 04/0 [...] Discussed due to patient's condition Care Teams Sawing And Assembly Supervisor Relationship Specialty Start Date End Date March, Bobby Vasquez MD [address] [place] [address] PCP - General Family Medicine 03/04/25 documented as of this encounter
--- OUTSIDE RECORDS SUMMARY | 2025-04-07 11:37 | External Medical Summary | Summary of Care ---
Author Name Unknown Organization [facility] Address [address] [facility] [place] [address] Phone [phone] Care Team Providers Care Pipe Buffer Name Role Phone Joseph Vazquez MD Primary Care Provider [phone] Encounter Details Date Type Department Care Team (Late st Contact Info) Description 02/04/2025 Orders Only Hematology/Oncology [facility] Abd[facility]iz [place] [address] [place] [phone] Marquis Christiansen MD [address] [place] [address] Allergies Active Allergy Reactions Criticality Noted Date [...] hemoglobin A1c goal of less than 7.0% ([facility]) Use up to twice times [...] Active Additional Information Patient taking differently:20 mg [id number], Reported on 01/30/2025 Esomeprazole Magnesium 40 MG [...] hemoglobin A1c goal of less than 7.0% ([facility]) Use up to 2 times a day E11.9 100 Strip 5 01/14/20 25 Active OneTouch UltraSoft LancetsIndicatio ns:Type 2 diabetes mellitus with hemoglobin A1c goal of less than 7.0% ([facility]) Use as directed 2 times a day as needed for Hyperglycemia (high sugar) or Hypoglycemia (low sugar). 100 Each 5 01/14/20 Active Calcium 1200 5027-2457 MG-UNIT Oral Tablet Chewable Take 1 Tablet [...] Additional Information Patient not taking.Reported on 01/30/2025 Hospital, Clinic, or Other Facility Administered Medication [...] 04/02/2025 1:00 PM EDT Office Visit Hematology/Oncology [facility] Nimo [place] 200 [facility] [place] [phone] Marquis Christiansen MD 200 [facility] [place] [address] 04/03/2025 10:00 AM EDT Laboratory Laboratory, [facility] [address] [place] [address] [facility] 226 [place] [address] 04/04/2025 9:30 AM EDT Immunization/Injecti on Hematology/Oncology Treatment, [place] [address] [facility] [address] [place] [phone] Nimo, Chair 10 Hem Onc [place] [address] [address] Katz [place] [address] 04/04/2025 9:30 AM EDT Pharmacy Pharmacy Hematology Oncology [place] [address] [place] [address] [facility] Hem/Onc [facility] [place] [place] [address] 04/23/2025 9:45 AM EDT Imaging Radiology [facility] 1st [facility] [address] [place] [address] 05/03/2025 9:00 AM EDT Office Visit Hematology/Oncology [facility] 200 [facility] [place] [phone] Marquis Christiansen MD 200 [facility] [place] [address] 06/24/2025 8:30 AM EDT Office Visit Cardiology, [facility] [address] [place] [phone] Homar Ware PA-C [address] [place] [address] Scheduled Procedures Name Priority Associated Diagnoses Date/Ti [...] PCV21) 10/05/2024 10/05/2019, 08/17/2018 HbA1c 02/20/2025 08/22/2024, 02/04/2024, 08/04/2023, Additional history exists Influenza Vaccine (FLU [...] Discussed due to patient's condition Care Teams Pipe Buffer Relationship Specialty Start Date End Date March, Joseph Vasquez MD [address] [place] [address] PCP - General Family Medicine 03/04/25 documented as of this encounter
--- OUTSIDE RECORDS SUMMARY | 2025-04-07 11:37 | External Medical Summary | Summary of Care ---
Author Name Unknown Organization [facility] Address [address] [facility] [address] Phone [phone] Care Team Providers Care Fan Engine Engineer Name Role Phone Joseph Vazquez MD Primary Care Provider Reason for Visit * Reason Comments Medication Administration Vitamin B12 1, 000mcgXgeva 120mg * Episode Based Medications (Routine) - Authorized Specialty Diagnoses / Procedures Referred By Contac t Referred To Contact Diagnoses Malignant neoplasm of upper-outer quadrant of left breast in female, estrogen receptor positive (HCC) Procedures MD DENOSUMAB INJECTION Marquis Christiansen MD [address] [place] [address] [place] [address] Phone: tel: fax: Hematology/Oncology Treatment, [address] [address] Phone: tel: fax: Referral ID Status Reason Start Date Expiration Date V isits Requested Visits Authorized [id number] Authorized 03/16/2024 03/17/2026 [id number] Encounter Details Date Type Department Care Team (Late st Contact Info) Description 03/08/2025 9:30 AM EDT Immunization/I njection Hematology/Oncology Treatment, [address] [address] Nimo, Chair [address] Hem On[address] [place] [address] Malignant neoplasm of upper-outer quadrant of left [...] hemoglobin A1c goal of less than 7.0% ([facility]) Use up to twice times a [...] left breast in female, estrogen receptor positive ([facility]) Take 1 Tablet by mouth every 6 [...] Active Additional Information Patient taking differently:20 mg [id number], Reported on 01/30/2025 Esomeprazole Magnesium 40 MG [...] Each 5 01/14/20 25 Active Calcium 1200 9595-8149 MG-UNIT Oral Tablet Chewable Take 1 Tablet [...] Additional Information Patient not taking.Reported on 01/30/2025 DULoxetine HCl 60 MG Oral Capsule Delayed [...] 2:30 PM EDT Cardiac Studies Cardiac Studies, [facility] [address] [place] [address] 04/03/2025 10:00 AM EDT Laboratory Laboratory, Brigid Peña 226 [facility] [place] [phone] [place] [facility] 226 [facility] [place] [address] 04/04/2025 9:30 AM EDT Immunization/Injecti on Hematology/Oncology Treatment, [place] [address] [place] [phone] Nimo, Chair 10 Hem Onc Scenery [address] [place] [address] 04/04/2025 9:30 AM EDT Pharmacy Pharmacy Hematology Oncology [facility] [place] [address] [place] [address] [facility] Hem/Onc [address] [place] [address] 04/23/2025 9:45 AM EDT Imaging Radiology [facility] 1st [facility] [address] [place] [phone] 05/03/2025 9:00 AM EDT Office Visit Hematology/Oncology [facility] [address] [place] [phone] Marquis Christiansen MD [address] [place] [address] 06/24/2025 8:30 AM EDT Office Visit Cardiology, [facility] [address] [place] [phone] Homar Ware PA-C [address] [place] [address] Scheduled Procedures Name Priority Associated Diagnoses Date/Ti [...] Adult Wellness Visit 2021 Albumin/Creatinine Ratio 02/01/2024 03 023, 09/17/2019, 06/03/2014, Additional history exists COVID-19 [...] Discussed due to patient's condition Care Teams Fan Engine Engineer Relationship Specialty Start Date End Date March, Joseph Vasquez MD [address] [place] [address] PCP - General Family Medicine 03/04/25 documented as of this encounter
--- OUTSIDE RECORDS SUMMARY | 2025-04-07 11:37 | External Medical Summary | Summary of Care ---
Author Name Unknown Organization [facility] Address [address] [facility] [place] [address] Phone [phone] Care Team Providers Care Management Intern Name Role Phone MarchJoseph MD Primary Care Provider [phone] Reason for Visit * Reason Onset Date Comments Appointment 03/25/2025 Encounter Details Date Type Department Care Team (Late st Contact Info) Description 03/25/2025 Telephone [facility] [place] [address] [place] [address] MarchJoseph MD 226 [place] [address] Appointment Allergies Active Allergy Reactions [...] hemoglobin A1c goal of less than 7.0% ([facility]) Use up to twice times [...] Active Additional Information Patient taking differently:20 mg [id number], Reported on 01/30/2025 Esomeprazole Magnesium 40 MG [...] sugar). 100 Each 01/14/20 Active Calcium 1200 5517-1073 MG-UNIT Oral Tablet Chewable Take 1 Tablet [...] encounter Miscellaneous Notes * Telephone Encounter - Scooby Mcmahon RN - 03/26/2025 4:30 PM EDT Called pt on her mobile ph and LVM offering tue or march 7 or at 2:30 pm. Scooby Mcmahon RN * Telephone Encounter - Lj Lenz OSA - 03/25/2025 4:01 PM EDT Patient needs a sooner ECHO before her procedure on 04/01/25. Anesthesia is requesting this to be done before the procedure, patient did have to cancel the first ECHO appt because of her chemo appts. Spoke with echo technician, and she is aware that the procedure may have to be postponed, if the ECHO cannot be done before 04/01/25. Please advise, thank you. documented in this encounter Plan of Treatment Upcoming Encounters Date Type Department Care Team (Late st Contact Info) Description 04/03/2025 10:00 AM EDT Laboratory Laboratory, [place] [facility] 226 [place] [address] [facility] 226 [place] [address] 04/04/2025 9:30 AM EDT Immunization/Injecti on Hematology/Oncology Treatment, [place] 200 [facility] [phone] Nimo, Chair [address] Hem On[address] [place] [address] 04/04/2025 9:30 AM EDT Pharmacy Pharmacy Hematology Oncology [place] [address] [place] [address] [facility] [place] Hem/Onc [facility] [address] 04/23/2025 9:45 AM EDT Imaging Radiology [facility] 1st [facility] [address] [place] [phone] 05/03/2025 9:00 AM EDT Office Visit Hematology/Oncology [facility] Nimo [address] [place] [phone] Marquis Christiansen MD 200 [facility] [place] [address] 05/09/2025 7:15 AM EDT Cardiac Studies Cardiac Studies, [facility] [address] [place] [address] 06/24/2025 8:30 AM EDT Office Visit Cardiology, [facility] [address] [place] [phone] Homar Ware PA-C [address] [place] [address] Scheduled Procedures Name Priority Associated Diagnoses Date/Ti [...] Discussed due to patient's condition Care Teams Management Intern Relationship Specialty Start Date End Date March, Joseph Vasquez MD [address] [place] [address] PCP - General Family Medicine 03/04/25 documented as of this encounter
--- OUTSIDE RECORDS SUMMARY | 2025-04-07 11:37 | External Medical Summary | Summary of Care ---
Author Name Unknown Organization [facility] Address [address] [facility] [place] [address] Phone [phone] Care Team Providers Care Sr Risk Management Consultant Name Role Phone Joseph Vazquez MD Primary Care Provider [phone] Encounter Details Date Type Department Care Team (Late st Contact Info) Description 03/05/2025 Orders Only Hematology/Oncology [facility] Abdiaziz Suero [address] [place] [address] Marquis Christiansen MD [address] [place] [address] Allergies Active Allergy Reactions Criticality Noted Date [...] A1c goal of less than 7.0% ([facility]) Use up to twice times [...] Active Additional Information Patient taking differently:20 mg [id number], Reported on 01/30/2025 Esomeprazole Magnesium 40 MG [...] A1c goal of less than 7.0% ([facility]) Use up to 2 times a day E11.9 100 Strip 5 01/14/20 25 Active OneTouch UltraSoft LancetsIndicatio ns:Type 2 diabetes mellitus with hemoglobin A1c goal of less than 7.0% ([facility]) Use as directed 2 times a day as needed for Hyperglycemia (high sugar) or Hypoglycemia (low sugar). 100 Each 5 01/14/20 Active Calcium 1200 9707-0308 MG-UNIT Oral Tablet Chewable Take 1 Tablet [...] 04/02/2025 1:00 PM EDT Office Visit Hematology/Oncology [facility] Nimo [place] 200 [facility] [place] [phone] Marquis Christiansen MD 200 [facility] [place] [address] 04/03/2025 10:00 AM EDT Laboratory Laboratory, [facility] 226 [place] [address] [facility] 226 [place] [address] 04/04/2025 9:30 AM EDT Immunization/Injecti on Hematology/Oncology Treatment, [place] [address] [facility] [address] [place] [phone] Nimo, Chair 10 Hem Onc [place] [address] [address] [place] [address] 04/04/2025 9:30 AM EDT Pharmacy Pharmacy Hematology Oncology [place] [address] [place] [address] [facility], [facility] Hem/Onc [facility] [place] [address] 04/23/2025 9:45 AM EDT Imaging Radiology [facility] 1st [facility] [address] [place] [address] 05/03/2025 9:00 AM EDT Office Visit Hematology/Oncology [facility] 200 [facility] [place] [phone] Marquis Christiansen MD 200 [facility] [place] [address] 06/24/2025 8:30 AM EDT Office Visit Cardiology, [facility] [address] [place] [phone] Homar Ware PA-C [address] [place] [address] Scheduled Procedures Name Priority Associated Diagnoses Date/Ti [...] Discussed due to patient's condition Care Teams Sr Risk Management Consultant Relationship Specialty Start Date End Date March, Joseph Vasquez MD [address] [place] [address] PCP - General Family Medicine 03/04/25 documented as of this encounter
--- OUTSIDE RECORDS SUMMARY | 2025-04-07 11:38 | External Medical Summary | Summary of Care ---
Author Name Unknown Organization [facility] Address [address] [facility] [place] [address] Phone [phone] Care Team Providers Care Marine Cargo Specialist Name Role Phone Bobby Mcdowell MD Primary Care Provider [phone] Reason for Visit * Reason Onset Date Comments Medication Refill 03/22/2025 Encounter Details Date Type Department Care Team (Late st Contact Info) Description 03/22/2025 Refill [facility] [address] [facility] [place] [phone] Rowena Banks PA-C [address] [place] [address] Major depressive disorder, recurrent episode, moderate (HCC); Fibromyalgia Allergies Active Allergy Reactions Criticality Noted Date [...] A1c goal of less than 7.0% ([facility]) Use up to twice times [...] Active Additional Information Patient taking differently:20 mg [id number], Reported on 01/30/2025 Esomeprazole Magnesium 40 MG [...] 100 Each 5 01/14/20 Active Calcium 1200 0804-2817 MG-UNIT Oral Tablet Chewable Take 1 Tablet [...] bedtime. 180 Capsule 3 03/25/20 25 Active DULoxetine HCl 60 MG Oral Capsule Delayed Release Particles (Cymbalta)Indica tions:Major depressive disorder, recurrent episode, moderate (HCC),Fibromyalg ia Take 1 Capsule by mouth in the morning. 90 Capsule 3 03/13/20 24 025 Discontin ued(Refil l) Gabapentin 300 MG Oral Capsule (Neurontin) Take [...] Hyperlipidemia with target LDL less than 100 04/19/ 3 09/21/2017 Overview (03/22/2016): ICD-10 update of [...] 05/04/2011 06/21/2016 BITE BY CAT, RIGHT FOOT 05/04/201111/2015 Overview (02/20/2025): ICD-10 Update of Inactive Term [...] encounter Miscellaneous Notes * Telephone Encounter - Bobby Mcdowell MD - 03/25/2025 5:33 PM EDTSigned Prescriptions: Disp Refills DULoxetine HCl 60 MG Oral Capsule Delayed *90 Cap*3 Sig: Take 1 Capsule by mouth in the morning. Authorizing Provider: BOBBY MCDOWELL Ordering User: GENNA WRIGHT Gabapentin 300 MG Oral Capsule (Neurontin) 180 Ca*3 Sig: Take 2 Capsules by mouth at bedtime. Authorizing Provider: BOBBY MCDOWELL * Telephone Encounter - Genna Wright [facility] - 03/25/2025 8:08 AM EDT Pending Prescriptions: Disp Refills Gabapentin 300 MG Oral Capsule (Neurontin) 180 Ca*3 Sig: Take 2 Capsules by mouth at bedtime. Signed Prescriptions: Disp Refills DULoxetine HCl 60 MG Oral Capsule Delayed *90 Cap*3 Sig: Take 1 Capsule by mouth in the morning. Authorizing Provider: BOBBY MCDOWELL Ordering User: GENNA WRIGHT ------- * Telephone Encounter - Genna Wright [facility] - 03/25/2025 8:08 AM EDT Refill pharmacists currently not authorized to approve refills for this class of medication per refill protocol. Please approve if appropriate. Thank you, Genna Wright PharmD. Clinical Pharmacist Pharmacy Refill Call Center 03/25/2025, 8:08 AM documented in this encounter Plan of Treatment Upcoming Encounters Date Type Department Care Team (Latest Contact Info) Description 04/01/2025 11:15 AM EDT Hospital Encounter ENDO [facility], Endoscopy Room [facility] [address] [place] [phone] Homar Padgett MD [address] [place] [address] 04/01/2025 11:15 AM EDT - 04/01/2025 12:15 PM EDT Surgery ENDO [facility], Endoscopy Room [facility] [address] [place] [phone] Homar Padgett MD [address] [place] [address] COLONOSCOPY FLEXIBLE PROXIMAL DIAGNOSTIC 04/03/2025 10:00 AM EDT Laboratory [facility], [place] [facility] [address] [facility] [place] [phone] [place], Laboratory [address] [facility] [address] 04/04/2025 9:30 AM EDT Immunization/Inject ion Hematology/Oncolog y Treatment, [place] [address] [place] [address] [place], Chair [address] [place] [address] 04/04/2025 9:30 AM EDT Pharmacy Pharmacy Hematology Oncology [place] [address] [place] [address] [facility], [facility] Hem/Onc [address] [place] [address] 04/23/2025 9:45 AM EDT Imaging Radiology [facility] 1st Floor, [place] [address] [place] [address] 05/03/2025 9:00 AM EDT Office [facility] [address] [facility] [place] [phone] Marquis Christiansen MD [address] [facility] [place] [address] 06/24/2025 8:30 AM EDT Office Visit Cardiology, [facility] [address] [place] [phone] Homar Ware PA-C [address] [place] [address] Scheduled Procedures Name Priority Associated Diagnoses Date/Ti me COLONOSCOPY FLEXIBLE PROXIMA L DIAGNOSTIC Gastroesophageal reflux disease, unspecified whether esophagitis present 04/01/2025 11:15 AM EDT ESOPHAGOGASTRODUODENOSCOPY ( EGD), FLEXIBLE, TRANSORAL, DIAGNOSTIC Gastroesophageal reflux disease, unspecified whether esophagitis present 04/01/2025 11:15 AM EDT Health Maintenance Due Date Last Done Comments [...] 01/07/2025, Additional history exists Colonoscopy 02/28/2028 02/27/2018, 0 07/2018, 03/21/2012, Additional history exists Colorectal Cancer [...] Diagnosis Major depressive disorder, recurrent episode, moderate (HCC) Major depressive disorder, recurrent episode, moderate Fibromyalgia Mylagia and myositis, unspecified Gastroesophageal reflux disease, unspecified whether esophagitis present documented in this encounter Advance Directives * [...] Discussed due to patient's condition Care Teams Marine Cargo Specialist Relationship Specialty Start Date End Date March, Bobby Vasquez MD [address] [place] [address] PCP - General Family Medicine 03/04/25 documented as of this encounter
--- OUTSIDE RECORDS SUMMARY | 2025-04-07 11:38 | External Medical Summary ---
Author Name Unknown Address Unknown Organization [id number]:[facility] [place] - [facility] [address] [place] [address] Laboratory Report Ordering Provider Test Date Status DINESH [place] 03/07/2025 09:57:15 Final Observation Date Value Abnormality Reference (Units ) Status WBC, Total 03/07/2025 09:57:15 4.94 4.00-10.80 (K/uL) Final RBC 03/07/2025 09:57:15 2.91 3.85-5.15 (M/uL) Final Hemoglobin 03/07/2025 09:57:15 10.1 Below low normal 12.0-15.3 (g/dL) Final HCT 03/07/2025 09:57:15 32.5 Below low normal 36.0-45.2 (%) Final MCV 03/07/2025 09:57:15 111.7 81.5-97.5 (fL) Final MCH 03/07/2025 09:57:15 34.7 27.0-34.0 (pg) Final MCHC 03/07/2025 09:57:15 31.1 32.0-36.0 (g/dL) Final RDW 03/07/2025 09:57:15 15.9 11.5-15.5 (%) Final Platelets 03/07/2025 09:57:15 163 140-400 (K/uL) Final MPV 03/07/2025 09:57:15 11.0 6.6-11.1 (fL) Final Nucleated erythrocytes/100 leukocytes [Ratio] in Blood by Automated count 03/07/2025 09:57:15 0 <=0 (/100 WBCs) Final Performing Location [facility] [place] - [address] [place] [address]
--- OUTSIDE RECORDS SUMMARY | 2025-04-07 11:38 | External Medical Summary ---
Author Name Unknown Address Unknown Organization K01:[facility] [place] - [address] [facility] [place] [address] Laboratory Report Ordering Provider Test Date Status DINESH MOBLEY 03/07/2025 09:57:15 Final Observation Date Value Abnormality Reference (Units ) Status SYNC LEUKOCYTES IN BLOOD BY AUTOMATED COUNT 03/07/2025 09:57:15 4.94 4.00-10.80 (K/uL) Final Segs 03/07/2025 09:57:15 74.6 40.0-75.0 (%) Final Lymphs % 03/07/2025 09:57:15 12.3 Below low normal 18.0-42.0 (%) Final Monos 03/07/2025 09:57:15 7.9 1.0-11.0 (%) Final Eosinophils 03/07/2025 09:57:15 3.8 0.0-6.0 (%) Final Basos 03/07/2025 09:57:15 0.8 0.0-2.0 (%) Final Immature Granulocyte, Percent 03/07/2025 09:57:15 0.6 0.0-2.0 (%) Final Absolute Segs 03/07/2025 09:57:15 3.68 1.80-7.70 (K/uL) Final Lymphs, absolute 03/07/2025 09:57:15 0.61 Below low normal 1.00-4.80 (K/ul) Final Monos, Abs 03/07/2025 09:57:15 0.39 0.00-1.10 (K/uL) Final Eos, Abs 03/07/2025 09:57:15 0.19 0.00-0.70 (K/uL) Final Basos, Abs 03/07/2025 09:57:15 0.04 0.00-0.20 (K/uL) Final Immature Granulocytes, Number 03/07/2025 09:57:15 0.03 0.00-0.20 (K/uL) Final Performing Location [facility] [place] - [facility] [address] [place] [address]
--- OUTSIDE RECORDS SUMMARY | 2025-04-07 11:38 | External Medical Summary | Summary of Care ---
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) Metastasis to bone (HCC) Procedures PET CT SKULL BASE TO MID-THIGH FDG IOF PET MISCELLANEOUS Carlene Alcantara CRNP [address] [place] [address] Phone: tel: fax: Referral ID Status Reason Start Date Expiration Date Visits Requested Visits Authorized [id number] Pending Previously Assigned Authorization 01/10/2025 07/09/2025 [id number] Reason for Visit * Reason Comments Follow Up 1 month follow up Encounter Details Date Type Department Care Team (Late st Contact Info) Description 03/08/2025 9:00 AM EDT Office Visit Hematology/Oncology [employer] [address] [place] [id number] Carlene Alcantara CRNP [address] [place] [address] Malignant neoplasm of upper-outer quadrant of left breast in female, estrogen receptor positive (HCC)*; 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); Metastasis to bone (HCC); B12 deficiency; Edema of left lower leg Allergies Active Allergy Reactions Criticality Noted Date [...] as of this encounter (statuses as of 03/15/2025) Medications COMBIGAN 0.2-0.5 % ophthalmic solution Instill [...] A1c goal of less than 7.0% ([facility]) Use up to twice times a day E11.9 1 Kit 04/15/20 22 Active Albuterol Sulfate HFA 108 (90 Base) MCG/ACT Inhalation Aerosol Solution Inhale 2 Puffs by mouth every 6 hours as needed for Shortness of Breath or Wheezing. 8.5 g 11 11/25/19 24 Active DULoxetine HCl 60 MG Oral Capsule Delayed Release Particles (Cymbalta)Indica tions:Major depressive disorder, recurrent episode, moderate (HCC),Fibromyalg ia Take 1 Capsule by mouth in the morning. 90 Capsule 3 03/13/20 24 Active Vitamin E 200 UNIT Oral [...] Active Additional Information Patient taking differently:20 mg [id number], Reported on 01/30/2025 Esomeprazole Magnesium 40 MG [...] times a day E11.9 100 Strip 01/14/20 25 Active OneTouch UltraSoft LancetsIndicatio ns:Type 2 diabetes mellitus with hemoglobin A1c goal of less than 7.0% (HCC) Use as directed 2 times a day as needed for Hyperglycemia (high sugar) or Hypoglycemia (low sugar). 100 Each 01/14/20 25 Active Calcium 1200 3830-4099 MG-UNIT Oral Tablet Chewable Take 1 Tablet [...] Information Patient not taking.Reported on 01/30/2025 Gabapentin 300 MG Oral Capsule (Neurontin) Take 2 Capsules by mouth at bedtime. 60 Capsule 02/20/20 Active Linzess 290 MCG Oral Capsule (linaCLOtide) Take [...] as of this encounter (statuses as of 03/15/2025) Active Problems Problem Noted Date Diagnosed Date [...] as of this encounter (statuses as of 03/15/2025) Resolved Problems Problem Noted Date Diagnosed Date [...] Hyperlipidemia with target LDL less than 100 05/201 3 09/21/2017 Overview (03/22/2016): ICD-10 update of [...] as of this encounter (statuses as of 03/15/2025) Immunizations Name Administration Dates Next Due COVID-19 [...] Sign Reading Time Taken Comments Blood Pressure 139/79 03/08/2025 8:57 AM EDT Pulse 78 03/08/2025 8:57 AM EDT Temperature 36.6 °C (97.8 °F) 03/08/2025 8:57 AM ED T Respiratory Rate - - Oxygen Saturation 86% 03/08/2025 8:57 AM EDT Inhaled Oxygen Concentration - - Weight 105.9 kg (233 lb 8 oz) 03/08/2025 8:57 AM EDT Height - - Body Mass Index 40.08 01/07/2025 12:46 PM EST documented in this encounter Progress Notes * Carlene Alcantara CRNP - 03/08/2025 9:00 AM EDT Hematology/Oncology Outpatient Clinic note [facility] [address] [place] [address] Name: Sarah Burgos Date: 03/07/2025 CHIEF COMPLAINT: Sarah Burgos is a 69 year old female here today for f/u visit today. Patient of Dr. Marquis Christianesn. From Patient chart confirmed with patient. HEMATOLOGY/ONCOLOGY DIAGNOSIS: Left breast cancer, invasive carcinoma no special type, high grade, ER positive (moderate) in 60% malignant cells, NH weakly positive in 30% of malignamt cells, Her2/Vance--> negative by FISH Imaging study showed 8 x 8 x 10 mm tumor -left axillary lymph uyng enlargement, biopsy from that confirmed metastatic breast cancer ultrasound measuring 1.6 x 0.8 x 0.7 cm. Genetic Clinic evaluation (08/2020) --> negative for known 20 mutations. Left upper extremity lymphedema. - multiple bone metastasis (01/2024) - ER weekly positive in 50% of malignant cells, NH moderately positive in 50 % malignant cells, her2/vance--> Negative.- PD-L1 less than 1%. DATE OF DIAGNOSIS: 10/31/19 TREATMENT HISTORY: -She completed neoadjuvant dose dense AC followed by weekly Paclitaxel between 12/25/2019-05/22/2020. -She underwent bilateral mastectomies, left axillary lymph node dissection by Dr. Sarah on 07/07/2020 -She completed adjuvant radiation treatment in October 2020 at [facility]. - anastrozole 1 mg once a day. ( since May 2020- 10/2022) - Exemestane 25 mg once a day ( mid- October 2022-02/2024) . Discontinued because of disease progression, now diagnosed with stage IV breast cancer with bone metastasis in 01/2024. Faslodex and Abemaciclib combination.( 03/28/2024-- 01/24/25) - discontinued d/t disease progression CURRENT TREATMENT: Capecitabine 1650mg (3-500mg + 1-150mg tab) twice a day for 1 week followed by 1 week off (02/06/25 - ) Xgeva every 4 weeks (03/22/2024--) Monthly IM Vitamin B12 1,000 mcg DIAGNOSTIC WORKUP: She felt small lump in the left breast in the upper outer quadrant region, no other local symptoms further workup as follows: Bilateral breast diagnostic mammogram (07/26/2019) Left breast: The breast is heterogeneously dense, which may obscure small masses. The patient presents with area of clinical concern within the left breast 2:00. Targeted ultrasound of this region demonstrates a probable cyst within the left breast 2:00 7 cm from the nipple measuring 5 x 5 x 4 mm. Right breast --> no abnormal findings noted Left breast the diagnostic mammogram (10/26/2019: - hypoechoic mass at 2 o'clock measuring 7 x 10 x 7 mm. -enlarged left axillary lymph node measuring 1.6 x 0.8 x 0.7 cm. 10/31/2019: Biopsy from the left breast --> invasive carcinoma no special type, grade 3 -biopsy from the left axilla --> metastatic carcinoma. -ER moderately positive in 60% cells, NH weakly positive in 30% malignamt cells -Her2/Vance equivocal by IHC, negative by FISH. PET-CT scan done on 11/16/2019: -1. Metabolically active mass in the outer left breast corresponding with known biopsy proven malignancy. 2. Curvilinear metabolic activity corresponds to asymmetric left breath skin thickening with nippleretraction. These findings raise concern for a component of inflammatory carcinoma, potentially a synchronous lesion. Further evaluation with punch biopsy is recommended. 3. Metabolically active left level I axillary lymph node consistent with biopsy proven metastatic disease. 4. Asymmetrically prominent 1 cm left level III axillary lymph node with low level metabolic activity, suspicious. 5. No metabolically active distant metastases. Family history: -her mom at the age of 77, she had some kind of cancer, no detailed information available -her dad at the age of 87 because of COPD and cardiac condition, no cancer diagnosis -maternal aunt diagnosed with breast cancer her 2 daughters diagnosed with breast cancer and 1 granddaughter diagnosed with breast cancer OTHER IMPORTANT HISTORY: -Hypertension -bronchial asthma -Hyperlipidemia -nonspecific neuromuscular symptoms, seen by dental tech few years back, she says that she is positive for HLA B27 (November 2018) -Irritable bowel syndrome. -abdominal hernia surgery in the past -diverticulosis -discontinue smoking habit many years back, she smoked from age of 16 to 33. Interval History: Lately she is not feeling quite well. Feeling more tired. She gets Vitamin B12 injection every monthly. Xgeva every 4 weekly Reviewed PET-CT scan done on 01/21/2025, this has progression noted mainly in the bones. I would like to discontinue Faslodex and Abemacilcib at this time Talked about starting systemic chemotherapy with oral chemotherapy with Capecitabine and the she isin agreement for that. Reviewed the treatment schedule side effect profile. Planning start Capecitabine at 800 mg/m² twice a day for 1 week followed by 1 week off. Will continue Xgeva every 4 weekly as we planned dependent on her Calcium level. Advised to increase vitamin-D and Calcium supplementation. HISTORY OF PRESENT ILLNESS: Sarah Burgos is a 69 year old female with a history as outlined above. Currently here for f/u visit today and consideration for C2 of Xeloda and Xgeva injection. Patient feeling more energy and strength. Hands are mildly swollen and red. Noticed some mild swelling more in the left leg than right. This was just in the last couple days. Denies any pain or heat in left leg. Is eating and drinking well. Was due for injections in her knees. Does have some mild swelling in her abdomen. Does get mildly constipated at times that she treats with OTC senna with colace. Past Medical History: Diagnosis Date CODIE inhibitor intolerance 11/2010 cough Allergic rhinitis seasonal Breast cancer metastasized to axillary lymph node, left (HCC) C. difficile colitis Depressive disorder, not elsewhere classified 2003 Diverticulosis 02/2018 colonoscopy 2011 colonoscopy Dyslipidemia, goal LDL below 100 Fatty liver disease, nonalcoholic Fibromyalgia Gastritis and gastroduodenitis GERD (gastroesophageal reflux disease) Glaucoma HLA B27 (HLA B27 positive) HTN, goal below 140/90 01/2010 Irritable bowel syndrome with both constipation and diarrhea Restrictive lung disease 11/2017 due to morbid obesity Vitamin D deficiency 09/2010 Past Surgical History: Procedure Laterality Date ARTHO,SHOUL,W/ROTATOR CUFF 05/28/13 Dr Louis BREAST LESION,OTHER,EXCISION Bilateral 1980s Benign @ [facility] DELIVERY 1985 - emergency COLONOSCOPY, DIAGNOSTIC (RECTUM) 03/21/2012 COLONOSCOPY FLEXIBLE PROXIMAL DIAGNOSTIC performed by SHANTELL BRICE at ENDOSCOPY [facility] COLONOSCOPY, DIAGNOSTIC (RECTUM) 02/27/2018 normal, repeat 10 yrs/COLONOSCOPY FLEXIBLE PROXIMAL DIAGNOSTIC performed by Amilcar Duran MD at ENDOSCOPY [facility] EGD, FLEXIBLE, DIAGNOSTIC 01/24/2014 ESOPHAGOGASTRODUODENOSCOPY (EGD), FLEXIBLE, TRANSORAL, DIAGNOSTIC performed by Shantell Brice DO at ENDOSCOPY [facility] EGD, FLEXIBLE, DIAGNOSTIC 11/07/2014 mild-mod inflammation/ESOPHAGOGASTRODUODENOSCOPY (EGD), FLEXIBLE, TRANSORAL, DIAGNOSTIC performed by Amilcar Duran MD at ENDOSCOPY [facility] EGD, FLEXIBLE, DIAGNOSTIC 07/25/2019 acid reflux / [facility] GRAFT RIB CARTILAGE TO FACE/EAR/NOS N/A 08/12/2016 GRAFT RIB CARTILAGE TO FACE performed by Shea Alexandra MD at OR [facility] INFORMATION 1996 lap HH repair INFORMATION 1997 emergency ulcer surgery INFORMATION 2001 08 hernia repairs with mesh INFORMATION 1976 ovarian cysts removed INFORMATION 1996 incidental cholecystectomy INFORMATION age 25 repair broken nose and R cheek bone IR BIOPSY 03/07/2024 L-/S-SPINE PARAVERTEBRAL FACET INJ,1 LEVEL 08/17/2023 L-/S-SPINE PARAVERTEBRAL FACET INJ, 1 LEVEL performed by Facundo Benitez DO at OR [facility] L-/S-SPINE PARAVERTEBRAL FACET INJ,1 LEVEL 10/19/2023 L-/S-SPINE PARAVERTEBRAL FACET INJ, 1 LEVEL performed by Facundo Benitez DO at OR [facility] PFT B/A 10/2014 normal RECONSTRUCTION OF NOSE/SEPTUM N/A 08/12/2016 RHINOPLASTY COMPLETE INCLUDING MAJOR SEPTAL REPAIR performed by Shea Alexandra MD at OR [facility] REMOVAL OF APPENDIX Appendectomy REMOVE TONSILS & ADENOIDS, AGE 12+ 1981 Tonsillectomy/Adenoids,12+ Y/O SACROILIAC JOINT INJECT W/GUIDANCE 09/25/2018 INJECTION SACROILIAC JOINT performed by Facundo Benitez DO at OR [facility] SACROILIAC JOINT INJECT W/GUIDANCE 06/04/2019 INJECTION SACROILIAC JOINT performed by Facundo Benitez DO at OR [facility] SACROILIAC JOINT INJECT W/GUIDANCE 12/08/2022 INJECTION SACROILIAC JOINT performed by Facundo Benitez DO at OR [facility] SKIN TISSUE REARRANGEMENT Bilateral 08/30/2023 SKIN TISSUE REARRANGEMENT performed by Kody Perez MD at OR [facility] SKIN TISSUE REARRANGEMENT, ADD-ON Bilateral 08/30/2023 SKIN TISSUE REARRANGEMENT, ADD-ON performed by Kody Perez MD at [facility] THERAPEUTIC FRACTURE OF NOSE Bilateral 08/12/2016 FRACTURE OF NASAL TURBINATES THERAPEUTIC performed by Shea Alexandra MD at [facility] TOTAL ABD HYSTERECTOMY W/WO REMOVAL OF TUBE(S) 1989 no Ca, RITO w/ Bilateral Salpingo-Oophorectomy Social History Socioeconomic History Marital status: Spouse name: Gilberto Number of children: 3 Years of education: Not on file Highest education level: Not on file Occupational History 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 Tobacco Use Smoking status: Former Current packs/day: 0.00 Average packs/day: 1.5 packs/day for 17.0 years (25.5 ttl pk-yrs) Types: Cigarettes Start date: 12/03/1970 Quit date: 12/03/1987 Years since quittin.2 Passive exposure: Never Smokeless tobacco: Never Vaping Use Vaping status: Never Used Substance and Sexual Activity Alcohol use: Not Currently Comment: rare Drug use: No Sexual activity: Not on file Comment: no problems Other Topics Concern Service Not Asked Blood Transfusions Not Asked Caffeine Concern Not Asked Occupational Exposure Not Asked Hobby Hazards Not Asked Sleep Concern Not Asked Stress Concern Not Asked Weight Concern Not Asked Special Diet Not Asked Back Care Not Asked Exercise Not Asked Bike Helmet Not Asked Seat Belt Yes Self-Exams Not Asked Social History Narrative 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, , 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 education: 12 service: no hobbies/interests: Used to ride horses, sew, take care of goats-- little time now transfusions: No Tattoos- no exercise: Walking daily diet: Low fat nondenominational/restoration: [facility] marital status: 2002 children: 3 gc: 8 ggc: 0 pets: Lab and cat-outside exposure to violence/threats/abuse: no things to improve: vacation [employer] [place] [place] INFORMATION ENVIRONMENTAL HISTORY: Type of Home: One Story Type of Heating System: Oil and Wood pellet Air Conditioning: No Basement: Finished, Dehumidifier and No evidence mold, mildew Home have cockroaches: No Irritants in the home: Scented air fresheners Patient's bedroom location: Floor: first Type of denzel: Hardwood Beds: Number: 1 Type of beds: Mattress and Box spring Pillows: Number: 2 Type of pillows: Synthetic (hypoallergenic, polyester) and Foam Bedroom contains: Plants Pets: 1 cat(s) and 1 dog(s) Lives on a farm: Yes 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 Does not work outside of home. Entered by: Diego Luis MD 03/22/2011 Social Needs Financial Resource Strain: Not on file Food Insecurity: Unknown (04/11/2023) Hunger Vital Sign Worried About Running Out of Food in the Last Year: Patient declined Ran Out of Food in the Last Year: Never true Transportation Needs: Not on file Social Connections: Not on file Housing Stability: Not on file Review of patient's allergies indicates: Allergen Reactions Clavulanic Acid Hives Penicillins Hives Amoxicillin-Pot Clavulanate Hives Throat swelling Diclofenac Headaches, nausea Terazosin Edema Other Lisinopril cough Other Reaction(s): cough/swelling Sulfa Antibiotics Hives Was told by Dr Sarah that since she's taking Bactrim, no Sulfa allergy at this point 08/19/20 Current Outpatient Medications Medication Sig Dispense Refill COMBIGAN 0.2-0.5 % ophthalmic solution Instill 1 Drop into both eyes in the morning and 1 Drop before bedtime. Naproxen Sodium 550 MG Oral Tablet TAKE 1 TABLET BY MOUTH TWICE A DAY WITH BREAKFAST AND DINNER (Patient not taking: Reported on 01/24/2025) 180 Tablet 1 aspirin enteric coated 81 MG TBEC Take 1 Tablet by mouth in the morning. OneTouch Verio w/Device Kit Use up to twice times a day E11.9 1 Kit 0 Albuterol Sulfate HFA 108 (90 Base) MCG/ACT Inhalation Aerosol Solution Inhale 2 Puffs by mouth every 6 hours as needed for Shortness of Breath or Wheezing. 8.5 g 11 DULoxetine HCl 60 MG Oral Capsule Delayed Release Particles (Cymbalta) Take 1 Capsule by mouth in the morning. 90 Capsule 3 Vitamin E 200 UNIT Oral Tablet Take by mouth. (Patient not taking: Reported on 01/30/2025) Eye Multivitamin OR Capsule Take 1 Capsule by mouth in the morning. Calcium Carb-Cholecalciferol 500-5 MG-MCG Oral Tablet (Calcium 500+D3) Take by mouth. Prochlorperazine Maleate 10 MG Oral Tablet (Compazine) Take 1 Tablet by mouth every 6 hours as needed for Nausea. 90 Tablet 2 Carvedilol 6.25 MG Oral Tablet (Coreg) Take 1 Tablet by mouth 2 times a day with morning and evening meals. 180 Tablet 3 Cyclobenzaprine HCl 10 MG Oral Tablet (Flexeril) Take 1 Tablet by mouth 2 times a day as needed forMuscle spasms. (Patient not taking: Reported on 01/30/2025) 20 Tablet 0 Gabapentin 100 MG Oral Capsule (Neurontin) Take 2 capsules by mouth in the morning and 1 capsule bymouth at lunch and 1 capsule by mouth at dinner. (Patient taking differently: Take 2 Capsules by mouth in the morning. Take 2 capsules by mouth in the morning .) 120 Capsule 5 Famotidine 20 MG Oral Tablet (Pepcid) Take 1 Tablet by mouth in the morning and 1 Tablet before bedtime. (Patient taking differently: Take 1 Tablet by mouth every morning.) 180 Tablet 3 Esomeprazole Magnesium 40 MG Oral Capsule Delayed Release Take 1 Capsule by mouth daily before breakfast. 90 Capsule 3 oxyCODONE HCl 5 MG Oral Tablet (Oxy IR) Take 1 Tablet by mouth every 6 hours as needed for Pain, Moderate. 60 Tablet 0 Serevent Diskus 50 MCG/ACT Inhalation Aerosol Powder Breath Activated (Salmeterol Xinafoate) Inhale1 Puff by mouth in the morning and 1 Puff before bedtime. 60 Each 5 Ondansetron HCl 4 MG Oral Tablet (Zofran) Take 2 Tablets by mouth every 8 hours as needed for Nausea. (Patient not taking: Reported on 01/30/2025) 30 Tablet 3 Ondansetron HCl 8 MG Oral Tablet (Zofran) Take 1 Tablet by mouth every 8 hours as needed for Nausea. 30 Tablet 3 Montelukast Sodium 10 MG Oral Tablet (Singulair) TAKE 1 TABLET BY MOUTH EVERY MORNING 90 Tablet 3 Losartan Potassium 25 MG Oral Tablet (Cozaar) Take 0.5 Tablets by mouth daily. (Patient not taking:Reported on 01/30/2025) 45 Tablet 3 Fluticasone Propionate 50 MCG/ACT Nasal Suspension (Flonase) USE 2 SPRAYS IN EACH NOSTRIL ONCE DAILY IF NEEDED FOR CONGESTION 48 g 1 OneTouch Verio In Vitro Strip (Glucose Blood) Use up to 2 times a day E11.9 100 Strip 5 OneTouch UltraSoft Lancets Use as directed 2 times a day as needed for Hyperglycemia (high sugar) or Hypoglycemia (low sugar). 100 Each 5 Calcium 1200 7133-6888 MG-UNIT Oral Tablet Chewable Take 1 Tablet by mouth in the morning. LORazepam 0.5 MG Oral Tablet (Ativan) Take 1 Tablet by mouth every 8 hours as needed for Anxiety. (Patient not taking: Reported on 01/30/2025) 30 Tablet 0 Capecitabine 150 MG Oral Tablet (Xeloda) Take 1 Tablet by mouth in the morning and 1 Tablet before bedtime. Take for 7 days followed by 7-day rest period. Take within 30 minutes of meal. Do not crushor cut.. (Patient not taking: Reported on 01/30/2025) 28 Tablet 5 Capecitabine 500 MG Oral Tablet (Xeloda) Take 3 Tablets by mouth in the morning and 3 Tablets before bedtime. Take for 7 days followed by 7-day rest period. Take within 30 minutes of meal. Do not crush or cut.. (Patient not taking: Reported on 01/30/2025) 84 Tablet 5 Linzess 290 MCG Oral Capsule (linaCLOtide) Take 1 Capsule by mouth daily before breakfast. 90 Capsule 3 Gabapentin 300 MG Oral Capsule (Neurontin) Take 2 Capsules by mouth at bedtime. 60 Capsule 0 Current Facility-Administered Medications Medication Dose Route Frequency Provider Last Rate Last Admin albuterol sulfate (PROVENTIL) (2.5 MG/3ML) 0.083% inhalation solution 2.5 mg 2.5 mg Nebulizer Q4H PRN Stephan Simon MD 2.5 mg at 11/15/17 1121 REVIEW OF SYSTEMS: See HPI - otherwise negative OBJECTIVE: Filed Vitals: 03/08/25 0857 BP: 139/79 Pulse: 78 Temp: 36.6 °C (97.8 °F) TempSrc: Tympanic SpO2: 86% Weight: 105.9 kg (233 lb 8 oz) Wt Readings from Last 5 Encounters: 03/08/25 105.9 kg (233 lb 8 oz) 01/30/25 100.3 kg (221 lb 3.2 oz) 01/24/25 98.9 kg (218 lb) 01/07/25 100.2 kg (221 lb) 12/25/24 101.2 kg (223 lb) PHYSICAL EXAM: ECOG: Performance Status 1 = 80-90% Symptoms but nearly ambulatory General Appearance: No acute distress HEENT: Normal - No oral or pharyngeal masses, ulceration or thrush noted Lymph Nodes: Normal - No palpable lymph nodes in the neck or supraclavicular areas Lungs/Thorax: Normal - Clear to auscultation Heart: Normal - Regular rate and rhythm, normal S1, S2, no appreciable murmurs Extremities: +1 edema LLE Abdomen: Normal - Softly distended, nontender, bowel sounds present, no appreciable hepatosplenomegaly, no palpable masses Neurologic: Normal - Grossly intact LABS: Results for orders placed or performed in visit on 03/07/25 COMPREHENSIVE METABOLIC PANEL Result Value Ref Range BUN 11 6 - 20 mg/dL CREATININE 0.6 0.5 - 1.0 mg/dL EGFR >90 >=60 mL/min SODIUM 142 135 - 146 mmol/L POTASSIUM 4.2 3.5 - 5.1 mmol/L CHLORIDE 108 (H) 98 - 107 mmol/L CO2 22 22 - 32 mmol/L ANION GAP 12 7 - 15 mmol/L GLUCOSE 140 (H) 70 - 120 mg/dL Albumin 3.8 3.8 - 5.0 g/dL AST 32 10 - 35 U/L Alkaline Phosphatase 415 (H) 35 - 130 U/L Bilirubin, Total 0.6 <=1.2 mg/dL CALCIUM 8.9 8.4 - 10.2 mg/dL Protein 6.3 6.0 - 8.3 g/dL ALT 17 10 - 35 U/L PHOSPHORUS Result Value Ref Range Phosphorus 4.1 2.5 - 4.8 mg/dL CBC Result Value Ref Range WBC 4.94 4.00 - 10.80 K/uL RBC 2.91 3.85 - 5.15 M/uL HGB 10.1 (L) 12.0 - 15.3 g/dL HCT 32.5 (L) 36.0 - 45.2 % MCV 111.7 81.5 - 97.5 fL MCH 34.7 27.0 - 34.0 pg MCHC 31.1 32.0 - 36.0 g/dL RDW 15.9 11.5 - 15.5 % PLT 163 140 - 400 K/uL MPV 11.0 6.6 - 11.1 fL NRBCs 0 <=0 /100 WBCs DIFFERENTIAL, AUTOMATED Result Value Ref Range WBC 4.94 4.00 - 10.80 K/uL Neutrophils % 74.6 40.0 - 75.0 % Lymphocytes % 12.3 (L) 18.0 - 42.0 % Monocytes % 7.9 1.0 - 11.0 % Eosinophils % 3.8 0.0 - 6.0 % Basophils % 0.8 0.0 - 2.0 % Immature Granulocytes % 0.6 0.0 - 2.0 % Absolute Neutrophils 3.68 1.80 - 7.70 K/uL Absolute Lymphocytes 0.61 (L) 1.00 - 4.80 K/ul Absolute Monocytes 0.39 0.00 - 1.10 K/uL Absolute Eosinophils 0.19 0.00 - 0.70 K/uL Absolute Basophils 0.04 0.00 - 0.20 K/uL Absolute Immature Granulocytes 0.03 0.00 - 0.20 K/uL *Note: Due to a large number of results and/or encounters for the requested time period, some results have not been displayed. A complete set of results can be found in Results Review. IMPRESSION/PLAN: Metastatic breast cancer to bone Vitamin B12 deficiency Current treatment plan as follows: Capecitabine 1650mg (3-500mg + 1-150mg tab) twice a day for 1 week followed by 1 week off. Started C2 on 03/06. Tolerating well other than mild HFS. Xgeva 120 mg subq every four weeks - will receive injection today IM Vitamin B12 1,000 mcg monthly - will receive injections today Lab results reviewed: Alk phos improved at 415 Hgb improved at 10.1 Reinforced importance of drinking at least 64 ounces of fluids daily. Continue calcium/vitamin d supplement 3 capsules daily Continue monthly labs and MTM f/u - appreciate recommendations Next restaging PET/CT ordered to be completed in seven weeks Edema LLE STAT Venous duplex ordered Further recommendations based on results RTC in 8 weeks with physician for chemo return PAULINO El documented in this encounter Nursing Notes * Lin Hernandez, MEDICAL INFORMATION OFFICER - 03/08/2025 9:00 AM EDT Patient identifed by name and birthdate Do you have any concerns about pain management for today's visit? Yes. Patient instructed to discuss pain concerns with provider during the visit today Living Will or Advance Directive for Health Care as noted on the problem list. [employer] is a way you can talk to your provider on line through e-mail. Would you like to sign up? I can activate it for you? ALREADY ACTIVE Filed Vitals: 03/08/25 0857 BP: 139/79 Pulse: 78 Temp: 36.6 °C (97.8 °F) TempSrc: Tympanic SpO2: 86% Weight: 105.9 kg (233 lb 8 oz) Patient was instructed to not get up on the exam table/exam chair until directed and assisted by their provider; patient is to remain seated in the chair/ wheelchair/ exam table/ exam chair for fall prevention and safety reasons. Patient is aware to have assistance to step down off exam table/exam chair with personnel. Patient voiced full comprehension of instructions. documented in this encounter Plan of Treatment Upcoming Encounters Date Type Department Care Team (Latest Contact Info) Description 03/18/2025 9:45 AM EDT Pharmacy Pharmacy Hematology Oncology [facility] [address] [place] [address] [facility] [place] Hem/Onc [address] [place] [address] 03/25/2025 8:45 AM EDT Office Visit Orthopaedics [facility] [address] [place] [phone] Javed Salas, [address] [place] [phone] 04/01/2025 11:15 AM EDT Hospital Encounter ENDO [facility], Endoscopy Room [facility] [address] [place] [phone] Homar Padgett MD [address] [place] [address] 04/01/2025 11:15 AM EDT - 04/01/2025 12:15 PM EDT Surgery ENDO [facility], Endoscopy Room [facility] [address] [place] [phone] Homar Padgett MD [address] [place] [address] COLONOSCOPY FLEXIBLE PROXIMAL DIAGNOSTIC 04/03/2025 10:00 AM EDT [facility] [address] [facility] [place] [phone] [place], Laboratory [address] [facility] [place] [address] 04/04/2025 9:30 AM EDT Immunization/Inject ion Hematology/Oncolog y Treatment, [place] [address] [place] [phone] Nimo, Chair 10 Hem Onc Scenery [address] [place] [address] 04/23/2025 9:45 AM EDT Imaging Radiology [facility] [address] [facility] [address] [place] [phone] 05/03/2025 9:00 AM EDT Office Visit Hematology/Oncolog y [facility] [place] [address] [facility] [place] [phone] Marquis Christiansen MD [address] [facility] [address] 06/24/2025 8:30 AM EDT Office Visit Cardiology, [facility] [address] [place] [phone] Homar Ware, PA-C [address] [place] [address] Scheduled Orders Name Type Priority Associated Diagnoses Orde r Schedule PET CT SKULL BASE TO MID-THIGH FDG Medical Imaging STAT Malignant neoplasm of upper-outer quadrant of left breast in female, estrogen receptor positive (HCC) 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 Narrative 03/08/2025 2:43 PM EDT VASCULAR LAB RESULTS DATE OF EXAM: 03/08/25 PRESENTING CONDITIONS: Edema, Unspecified This is an interpretation of an exam performed at [facility]. PHYSICIAN REPORT: Lower Extremity Venous Duplex Examination Immediately before proceeding with the vascular lab procedure reported below, the identity of the patient, the correct exam and the correct procedural site were verified. Color flow Doppler, spectral analysis, and transducer compression techniques were applied during this ultrasound image examination. LEFT LOWER EXTREMITY On duplex examination, the left common femoral vein, the sapheno-femoral junction, the femoral vein in the thigh, and popliteal vein are all free of internal echoes and demonstrate normal transducer compressibility during donato scale imaging and normal respiratory and augmentation response during Doppler interrogation. The posterior tibial veins and peroneal veins demonstrate no evidence of thrombosis. The contralateral common femoral vein is patent and free of internal echoes. 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
--- OUTSIDE RECORDS SUMMARY | 2025-04-07 11:38 | External Medical Summary | Summary of Care ---
Author Name Unknown Organization [facility] Address [address] [place] [place] [facility] [place] [address] Phone [phone] Care Team Providers Care Brazer Furnace Name Role Phone Joseph Vazquez MD Primary Care Provider [phone] Reason for Referral * Precert (Diagnostic Medical) (Within 10 days (routine)) - Authorized Specialty Diagnoses / Procedures Referred By Contac t Referred To Contact Cardiac Studies Diagnoses Hypertensive heart disease with chronic diastolic congestive heart failure (HCC) Lower extremity edema Procedures ECHO, COMPLETE (2D), TRANS-THORACIC Joseph Vazquez MD [address] [place] [address] Phone: tel: fax: Referral ID Status Reason Start Date Expiration Date V isits Requested Visits Authorized [id number] Authorized Precert 03/12/2025 999 999 Reason for Visit * Reason Comments Acute Swelling in left jade t since Encounter Details Date Type Department Care Team (Late st Contact Info) Description 03/12/2025 10:20 AM EDT Office Visit [facility] Brigid Rocha [address] [place] [phone] Joseph Vazquez MD [address] [place] [address] Hypertensive heart disease with chronic diastolic congestive heart failure (HCC)*; Lower extremity edema; Urge incontinence; Carcinoma of left breast metastatic to axillary [...] as of this encounter (statuses as of 03/12/2025) Medications COMBIGAN 0.2-0.5 % ophthalmic solution Instill [...] hemoglobin A1c goal of less than 7.0% ([facility]) Use up to twice times [...] Active Additional Information Patient taking differently:20 mg [id number], Reported on 01/30/2025 Esomeprazole Magnesium 40 MG [...] Each 5 01/14/20 25 Active Calcium 1200 6236-0420 MG-UNIT Oral Tablet Chewable Take 1 Tablet [...] Tablet 5 02/28/2025 3:12 PM EDT 01/29/20 Active Additional Information [...] Tablet 5 02/28/2025 3:12 PM EDT 01/29/20 Active Additional Information Patient not taking.Reported on 01/30/2025 Gabapentin 300 MG Oral Capsule (Neurontin) Take 2 Capsules by mouth at bedtime. 60 Capsule 02/20/20 Active Solifenacin Succinate 5 MG Oral Tablet (VESIcare)Indica tions:Urge incontinence Take 1 Tablet by mouth in the morning. 30 Tablet 2 03/12/20 Active Hospital, Clinic, or Other Facility Administered Medication Ordered Dose Route Frequency Start Date End Date Status albuterol sulfate (PROVENTIL) (2.5 MG/3ML) 0.083% inhalation solution 2.5 mgIndications:Restrictive lung disease,SOB (shortness of breath) 2.5 mg NEBULIZER Q4H PRN 11/07/2017 Act roe documented as of this encounter (statuses as of 03/12/2025) Active Problems Problem Noted Date Diagnosed Date [...] as of this encounter (statuses as of 03/12/2025) Resolved Problems Problem Noted Date Diagnosed Date [...] as of this encounter (statuses as of 03/12/2025) Immunizations Name Administration Dates Next Due COVID-19 [...] Sign Reading Time Taken Comments Blood Pressure 151/81 03/12/2025 10:18 AM EDT Pulse 72 03/12/2025 10:18 AM EDT Temperature - - Respiratory Rate 16 03/12/2025 10:18 AM EDT Oxygen Saturation - - Inhaled Oxygen Concentration - - Weight 104.3 kg (230 lb) 03/12/2025 10:18 AM EDT Height - - Body Mass Index 39.48 01/07/2025 12:46 PM EST documented in this encounter Progress Notes * Joseph Vazquez MD - 03/12/2025 10:26 AM EDT Images from the original note were not included. Subjective Sarah Burgos is a 69 year old female that presents for Acute (Swelling in left foot since ) History of Present Illness The patient, a 69-year-old female with a significant past medical history including type two diabetes, restrictive lung disease, hypertensive heart disease with diastolic congestive heart failure, carotid stenosis, GERD, IBS, fibromyalgia, osteoarthritis, and depression, presents with left lower extremity edema that has been present for the past five days. The patient denies pain in the area and reports that the swelling has improved with elevation and icing. The patient also mentions that the swelling started after beginning a week of cancer treatment. In addition to the edema, the patient reports frequent urination, often waking up five to six timesat night, and sometimes experiencing incontinence. The patient also mentions constipation, which has been a recurring issue. The patient's weight has been fluctuating, with a recent increase from 216to 233 pounds within a month. The patient is currently on gabapentin, among other medications, and has recently started a week on, week off cancer treatment. Objective BP 151/81 | Pulse 72 | Resp 16 | Wt 230 lb (104.3 kg) | BMI 39.48 kg/m² | BSA 2.17 m² Physical Exam Physical Exam Vitals reviewed. Constitutional: General: She is not in acute distress. Pulmonary: Effort: Pulmonary effort is normal. No respiratory distress. Musculoskeletal: Comments: Trace edema of the left lower extremity to the mid calf. No erythema or warmth. No pain to palpation. Neurological: Mental Status: She is alert. Results Procedure: Lower extremity compression wrapping Description: The left lower extremity was wrapped from the foot to the top of the calf using an ACEbandage. LABS Creatinine: 0.6 mg/dL (03/07/2025) GFR: >90 mL/min/1.73m² (03/07/2025) RADIOLOGY Left lower extremity ultrasound: Negative for DVT (03/08/2025) Assessment and Plan Assessment & Plan Left lower extremity edema Acute onset over five days. Ultrasound ruled out DVT. No infection or gout. Possible contributing factors include gabapentin use. Differential includes venous insufficiency and heart-related edema. - Discontinue gabapentin for now. - Apply compression wrap to left lower extremity. - Advise leg elevation and icing. - Monitor weight and edema progression. - Consider diuretic therapy if echocardiogram shows heart-related changes. Hypertensive heart disease with diastolic heart failure Chronic condition potentially contributing to left lower extremity edema. Last echocardiogram two years ago. No acute heart failure exacerbation. - Order echocardiogram to assess heart function. Osteoarthritis Chronic condition with no acute changes. Irritable bowel syndrome (IBS) Chronic condition potentially contributing to weight fluctuation and constipation, exacerbated by oxycontin use. Bladder control issues Frequent nocturia and occasional incontinence. Solifenacin prescribed to manage symptoms. - Prescribe solifenacin. - Consider referral to urogynecology if solifenacin is ineffective. Visit Diagnoses and Orders 1. Hypertensive heart disease with chronic diastolic congestive heart failure (HCC) ECHO, COMPLETE (2D), TRANS-THORACIC 2. Lower extremity edema ECHO, COMPLETE (2D), TRANS-THORACIC 3. Urge incontinence Solifenacin Succinate 5 MG Oral Tablet (VESIcare) 4. 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 HTN, goal below 140/90 Wrap-Up Follow-up: Return if symptoms worsen or fail to improve. | Check-out note: Please help schedule echocardiogram. Joseph Vazquez MD Text in this note was generated using an [employer] documentation service. I discussed the use of a device to record and summarize our discussion today. All persons present during the encounter consented to its use. documented in this encounter Nursing Notes * Keely Farias LPN - 03/12/2025 10:18 AM EDT The patient has been properly identified by confirmation of name and date of . Chief Complaint Patient presents with Acute Swelling in left foot since documented in this encounter Plan of Treatment Upcoming Encounters Date Type Department Care Team (Latest Contact Info) Description 03/14/2025 8:15 AM EDT Cardiac Studies Cardiac Studies, [facility] [address] [place] [phone] 03/18/2025 9:45 AM EDT Pharmacy Pharmacy Hematology Oncology [facility] [address] [place] [address] [facility] [place], [facility] Clinic Hem/Onc [address] [place] [address] 04/01/2025 11:15 AM EDT Hospital Encounter ENDO [facility], Endoscopy Room [facility] [address] [place] [phone] Homar Padgett MD [address] [place] [address] 04/01/2025 11:15 AM EDT - 04/01/2025 12:15 PM EDT Surgery ENDO [facility], Endoscopy Room [facility] [address] [place] [phone] Homar Padgett MD [address] [place] [address] COLONOSCOPY FLEXIBLE PROXIMAL DIAGNOSTIC 04/03/2025 10:00 AM EDT Laboratory Laboratory, [facility] [address] [place] [phone] [place], Laboratory [address] [place] [address] 04/04/2025 9:30 AM EDT Immunization/Inject ion Hematology/Oncolog y Treatment, [place] [address] [place] [phone] Nimo, Chair 10 Hem Onc Scenery [address] [place] [address] 04/23/2025 9:45 AM EDT Imaging Radiology [facility] 1st [facility] [address] [place] [phone] 05/03/2025 9:00 AM EDT Office Visit Hematology/Oncolog y [facility] [place] [address] [place] [phone] Marquis Christiansen MD [address] [place] [address] 06/24/2025 8:30 AM EDT Office Visit Cardiology, [facility] [address] [place] [phone] Homar Ware, PAMerlene [address] [place] [address] Scheduled Orders Name Type Priority Associated Diagnoses Orde r Schedule ECHO, COMPLETE (2D), TRANS-THORACIC Echocardiology Routine Hypertensive heart disease with chronic diastolic congestive heart failure (HCC) Lower extremity edema Expected: 03/12/2025 (Approximate), Expires: 03/12/2026 Scheduled Procedures Name Priority Associated Diagnoses Date/Ti [...] as of this encounter Visit Diagnoses Diagnosis Hypertensive heart disease with chronic diastolic congestive heart failure (HCC)- Primary Lower extremity edema Edema Urge incontinence 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
--- OUTSIDE RECORDS SUMMARY | 2025-04-07 11:38 | External Medical Summary | Summary of Care ---
Author Name Unknown Organization [facility] Address [address] [facility] [place] [address] Phone [phone] Care Team Providers Care Glue Jointer Operator Name Role Phone Joseph Vazquez MD Primary Care Provider [phone] Reason for Visit * Reason Comments eRx-Medication Refill Encounter Details Date Type Department Care Team (Late st Contact Info) Description 03/22/2025 Refill [facility] Mariana Jones [address] [place] [phone] Rowena Banks PA-C [address] [place] [phone] Major depressive disorder, recurrent episode, moderate (HCC); [...] as of this encounter (statuses as of 03/25/2025) Medications ROME 0.2-0.5 % ophthalmic solution Instill 1 Drop [...] of less than 7.0% ([facility]) Use up to twice times a [...] Active Additional Information Patient taking differently:20 mg [id number], Reported on 01/30/2025 Esomeprazole Magnesium 40 MG [...] sugar). 100 Each 01/14/20 Active Calcium 1200 2804-6751 MG-UNIT Oral Tablet Chewable Take 1 Tablet [...] mouth at bedtime. 60 Capsule 02/20/20 25 Active Solifenacin Succinate 5 MG Oral Tablet (VESIcare)Indica tions:Urge incontinence Take 1 Tablet by mouth in the morning. 30 Tablet 2 03/12/20 25 Active DULoxetine HCl 60 MG Oral Capsule Delayed Release Particles (Cymbalta)Indica tions:Major depressive disorder, recurrent episode, moderate (HCC),Fibromyalg ia Take 1 Capsule by mouth in the morning. 90 Capsule 3 03/13/20 24 025 Discontin ued(Refil l) Hospital, Clinic, or Other Facility Administered Medication Ordered Dose Route Frequency Start Date End Date Status albuterol sulfate (PROVENTIL) (2.5 MG/3ML) 0.083% inhalation solution 2.5 mgIndications:Restrictive lung disease,SOB (shortness of breath) 2.5 mg NEBULIZER Q4H PRN 11/07/2017 Act roe documented as of this encounter (statuses as of 03/25/2025) Active Problems Problem Noted Date Diagnosed Date [...] as of this encounter (statuses as of 03/25/2025) Resolved Problems Problem Noted Date Diagnosed Date [...] as of this encounter (statuses as of 03/25/2025) Immunizations Name Administration Dates Next Due COVID-19 [...] encounter Miscellaneous Notes * Telephone Encounter - Genna Wright, [facility] - 03/25/2025 8:08 AM EDT Refused Prescriptions: Disp Refills Gabapentin 300 MG Oral Capsule (Neurontin) 60 Cap*0 Sig: Take 2 Capsules by mouth at bedtime. Refused By: GENNA WRIGHT Reason for Refusal: Duplicate Request DULoxetine HCl 60 MG Oral Capsule Delayed *90 Cap*0 Sig: Take 1 Capsule by mouth in the morning. Refused By: GENNA WRIGHT Reason for Refusal: Duplicate Request * Telephone Encounter - Interface, [facility] Inbound - 03/24/2025 7:47 PM EDT Pending Prescriptions: Disp Refills Gabapentin 300 MG Oral Capsule [Pharmacy M*60 Cap*0 Sig: Take 2Capsules by mouth at bedtime. DULoxetine HCl 60 MG Oral Capsule Delayed *90 Cap*0 Sig: Take 1 Capsule by mouth in the morning. documented in this encounter Plan of Treatment Upcoming Encounters Date Type Department Care Team (Latest Contact Info) Description 04/01/2025 11:15 AM EDT Hospital Encounter ENDO [facility]SS[facility], Endoscopy Room [facility] [address] [place] [phone] Homar Padgett MD [address] [place] [address] 04/01/2025 11:15 AM EDT - 04/01/2025 12:15 PM EDT Surgery ENDO [facility], Endoscopy Room [facility] [address] [place] [phone] Homar Padgett MD [address] [place] [address] COLONOSCOPY FLEXIBLE PROXIMAL DIAGNOSTIC 04/03/2025 10:00 AM EDT [facility] [address] [place] [address] [facility] [address] [facility] [place] [address] 04/04/2025 9:30 AM EDT Immunization/Inject ion Hematology/Oncolog y Treatment, [place] [address] [place] [phone] Nimo, Chair 10 Hem Onc [facility] [address] [facility] [place] [address] 04/04/2025 9:30 AM EDT Pharmacy Pharmacy Hematology Oncology [facility] [address] [place] [address] [facility] [place], [facility] Clinic Hem/Onc [address] [place] [address] 04/23/2025 9:45 AM EDT Imaging Radiology [address] [place] [phone] 05/03/2025 9:00 AM EDT Office Visit Hematology/Oncolog y [facility] [place] [address] [facility] [place] [phone] Marquis Christiansen MD [address] [facility] [place] [address] 06/24/2025 8:30 AM EDT Office Visit Cardiology, [facility] [address] [place] [phone] Homar Ware PA-C [address] [place] [address] Scheduled Procedures Name Priority Associated Diagnoses Date/Ti [...] Discussed due to patient's condition Care Teams Glue Jointer Operator Relationship Specialty Start Date End Date March, Joseph Vaqsuez MD [address] [place] [address] PCP - General Family Medicine 03/04/25 documented as of this encounter
--- OUTSIDE RECORDS SUMMARY | 2025-04-07 11:38 | External Medical Summary | Summary of Care ---
Author Name Unknown Organization [facility] Address [address] [facility] [address] Phone [phone] Care Team Providers Care Infertility Medical Assistant Name Role Phone Joseph Vazquez MD Primary Care Provider [phone] Reason for Visit * Reason Comments Medication Administration Vitamin B12 1, 000mcgXgeva 120mg * Episode Based Medications (Routine) - Authorized Specialty Diagnoses / Procedures Referred By Contac t Referred To Contact Diagnoses Malignant neoplasm of upper-outer quadrant of left breast in female, estrogen receptor positive (HCC) Procedures ND DENOSUMAB INJECTION Marquis Christiansen MD [address] [place] [address] [place] [address] Phone: tel: fax: Hematology/Oncology Treatment, [address] [address] Phone: tel: fax: Referral ID Status Reason Start Date Expiration Date V isits Requested Visits Authorized [id number] Authorized 03/16/2024 03/17/2026 [id number] Encounter Details Date Type Department Care Team (Late st Contact Info) Description 03/08/2025 9:30 AM EDT Immunization/I njection Hematology/Oncology Treatment, [address] [address] Nimo, Chair [address] [place] [address] Malignant neoplasm of upper-outer quadrant of left [...] as of this encounter (statuses as of 03/08/2025) Medications COMBIGAN 0.2-0.5 % ophthalmic solution Instill [...] goal of less than 7.0% ([facility]) Use up to twice times a day E11.9 1 Kit 04/15/20 22 Active Albuterol Sulfate HFA 108 (90 Base) MCG/ACT Inhalation Aerosol Solution Inhale 2 Puffs by mouth every 6 hours as needed for Shortness of Breath or Wheezing. 8.5 g 11 11/25/19 24 Active DULoxetine HCl 60 MG Oral Capsule Delayed Release Particles (Cymbalta)Indica tions:Major depressive disorder, recurrent episode, moderate ([facility]),Fibromyalg ia Take 1 Capsule by mouth in [...] Active Additional Information Patient taking differently:20 mg [id number], Reported on 01/30/2025 Esomeprazole Magnesium 40 MG [...] goal of less than 7.0% ([facility]) Use as directed 2 times a day as needed for Hyperglycemia (high sugar) or Hypoglycemia (low sugar). 100 Each 5 01/14/20 25 Active Calcium 1200 3537-8538 MG-UNIT Oral Tablet Chewable Take 1 Tablet [...] daily before breakfast. 90 Capsule 3 01/31/20 025 Discontin ued(Medic ation List Clean Up) Hospital, Clinic, or Other Facility Administered Medication Ordered Dose Route Frequency Start Date End Date Status albuterol sulfate (PROVENTIL) (2.5 MG/3ML) 0.083% inhalation solution 2.5 mgIndications:Restrictive lung disease,SOB (shortness of breath) 2.5 mg NEBULIZER Q4H PRN 11/07/2017 Act roe documented as of this encounter (statuses as of 03/08/2025) Active Problems Problem Noted Date Diagnosed Date [...] as of this encounter (statuses as of 03/08/2025) Resolved Problems Problem Noted Date Diagnosed Date [...] as of this encounter (statuses as of 03/08/2025) Immunizations Name Administration Dates Next Due COVID-19 [...] Department Care Team (Latest Contact Info) Description 03/08/2025 2:00 PM EDT Imaging Vascular Lab, [facility] [address] [place] [address] 03/18/2025 9:45 AM EDT Pharmacy Pharmacy Hematology Oncology [facility] [address] [place] [address] [facility], [facility] Hem/Onc [address] [place] [address] 04/01/2025 11:15 AM EDT Hospital Encounter ENDO [facility], Endoscopy Room [facility] [address] [place] [address] Homar Padgett MD [address] [place] [address] 04/01/2025 11:15 AM EDT - 04/01/2025 12:15 PM EDT Surgery ENDO [facility], Endoscopy Room [facility] [address] [place] [address] Homar Padgett MD [address] [place] [address] COLONOSCOPY FLEXIBLE PROXIMAL DIAGNOSTIC 04/03/2025 10:00 AM EDT Laboratory [facility], [place] [facility] [address] [place] [phone] [place], Laboratory [address] [facility], [place] [address] 04/04/2025 9:30 AM EDT Immunization/Inject ion Hematology/Oncolog y Treatment, [place] [address] [place], [place] [phone] Nimo, Chair 10 Hem Onc Scen[address] [place] [address] 04/23/2025 9:45 AM EDT Imaging Radiology [facility] 1st [facility] [address] [place] [phone] 05/03/2025 9:00 AM EDT Office Visit Hematology/Oncolog y [facility] [address] [place] [phone] Marquis Christiansen MD [address] [facility], [place] [address] 06/24/2025 8:30 AM EDT Office Visit Cardiology, [facility] [address] [place] [address] Homar Ware, PA-C [address] [place] [address] Scheduled Procedures Name Priority Associated Diagnoses Date/Ti [...] 01/07/2025, Additional history exists Colonoscopy 02/28/2028 02/27/2018, 040 [...] (HCC)- Primary B12 deficiency Other B-complex deficiencies Gastroesophageal reflux disease, unspecified whether esophagitis present documented in this encounter Administered Medications Inactive [...] Discussed due to patient's condition Care Teams Infertility Medical Assistant Relationship Specialty Start Date End Date March, Joseph Vasquez MD [address] [place] [address] PCP - General Family Medicine 03/04/25 documented as of this encounter
--- OUTSIDE RECORDS SUMMARY | 2025-04-07 11:38 | External Medical Summary | Summary of Care ---
Author Name Unknown Organization [facility] Address [address] [facility] [place] [address] Phone [phone] Care Team Providers Care Railroad Dining Car Stewardess Name Role Phone Joseph Vazquez MD Primary Care Provider [phone] Reason for Visit * Reason Comments Outpatient Testing Encounter Details Date Type Department Care Team (Late st Contact Info) Description 03/07/2025 10:00 AM EDT Laboratory Laboratory, [place] [address] [place] [address] [place] [facility] [address] [place], [place] [id number] Carcinoma of left breast metastatic to axillary [...] as of this encounter (statuses as of 03/07/2025) Medications COMBIGAN 0.2-0.5 % ophthalmic solution Instill [...] hemoglobin A1c goal of less than 7.0% ([facility]) Use up to twice times a day [...] Active Additional Information Patient taking differently:20 mg [id number], Reported on 01/30/2025 Esomeprazole Magnesium 40 MG [...] by mouth daily. 45 Tablet 3 01/11/20 Active Additional Information Patient not taking.Reported on [...] sugar). 100 Each 01/14/20 Active Calcium 1200 1430-4237 MG-UNIT Oral Tablet Chewable Take 1 Tablet [...] Additional Information Patient not taking.Reported on 01/30/2025 Linzess 290 MCG Oral Capsule (linaCLOtide) Take 1 Capsule by mouth daily before breakfast. 90 Capsule 3 01/31/20 Active Gabapentin 300 MG Oral Capsule (Neurontin) Take 2 Capsules by mouth at bedtime. 60 Capsule 02/20/20 Active Hospital, Clinic, or Other Facility Administered Medication Ordered Dose Route Frequency Start Date End Date Status albuterol sulfate (PROVENTIL) (2.5 MG/3ML) 0.083% inhalation solution 2.5 mgIndications:Restrictive lung disease,SOB (shortness of breath) 2.5 mg NEBULIZER Q4H PRN 11/07/2017 Act roe documented as of this encounter (statuses as of 03/07/2025) Active Problems Problem Noted Date Diagnosed Date [...] as of this encounter (statuses as of 03/07/2025) Resolved Problems Problem Noted Date Diagnosed Date [...] as of this encounter (statuses as of 03/07/2025) Immunizations Name Administration Dates Next Due COVID-19 [...] Care Team (Latest Contact Info) Description 03/08/2025 9:00 AM EDT Office Visit Hematology/Oncology [facility] [address] [place] [address] Carlene Alcantara CRNP [address] [place] [address] 03/08/2025 9:30 AM EDT Immunization/Injec tion Hematology/Oncology Treatment, [place] [address] [place], [place] [address] Nimo, Chair 10 Hem Onc Scenery [address] [place], [place] [address] 03/18/2025 9:45 AM EDT Pharmacy Pharmacy Hematology Oncology [facility] [address] [place] [address] [facility] Hem/Onc [address] [place] [address] 04/01/2025 11:15 AM EDT Hospital Encounter ENDO [facility], Endoscopy Room [facility] [address] [place] [address] Homar Padgett MD [address] [place] [address] 04/01/2025 11:15 AM EDT - 04/01/2025 12:15 PM EDT Surgery ENDO [facility], Endoscopy Room [facility] [address] [place] [phone] Homar Padgett MD [address] [place] [address] COLONOSCOPY FLEXIBLE PROXIMAL DIAGNOSTIC 06/24/2025 8:30 AM EDT Office Visit Cardiology, [facility] [address] [place] [address] Homar Ware PA-C [address] [place] [address] Pending Results Name Type Priority Associated Diagnoses Date /Time CBC WITH WBC DIFFERENTIAL Lab STAT 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) History of breast cancer Metastasis to bone (HCC) Malignant neoplasm of upper-outer quadrant of left breast in female, estrogen receptor positive (HCC) 03/07/2025 9:57 AM EDT COMPREHENSIVE METABOLIC PANEL Lab STAT 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) History of breast cancer Metastasis to bone (HCC) Malignant neoplasm of upper-outer quadrant of left breast in female, estrogen receptor positive (HCC) 03/07/2025 9:57 AM EDT PHOSPHORUS Lab Routine 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) History of breast cancer Metastasis to bone (HCC) Malignant neoplasm of upper-outer quadrant of left breast in female, estrogen receptor positive (HCC) 03/07/2025 9:57 AM EDT CBC Lab STAT 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) History of breast cancer Metastasis to bone (HCC) Malignant neoplasm of upper-outer quadrant of left breast in female, estrogen receptor positive (HCC) 03/07/2025 9:57 AM EDT DIFFERENTIAL, AUTOMATED Lab STAT 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) History of breast cancer Metastasis to bone (HCC) Malignant neoplasm of upper-outer quadrant of left breast in female, estrogen receptor positive (HCC) 03/07/2025 9:57 AM EDT Scheduled Procedures Name Priority Associated Diagnoses Date/Ti [...] from 08/12/2017 (Patient Declined After Education) GFR 02/04/2026 02/04/2025, 12/22, 12/24/2024, Additional history exists Colonoscopy 02/28/2028 02/27/2018, 07/2018, [...] as of this encounter Visit Diagnoses Diagnosis 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) History of breast cancer Personal history of malignant neoplasm of breast Metastasis to bone (HCC) Secondary malignant neoplasm of bone and bone marrow Malignant neoplasm of upper-outer quadrant of left breast in female, estrogen receptor positive (HCC) Gastroesophageal reflux disease, unspecified whether esophagitis present documented in this encounter Advance Directives * Full Code (Latest Code Status on File) Date Activated Date Inactivated Comments 08/30/2023 12:53 PM 08/30/2023 7:47 PM Question Answer Comments Discussion of Advance Direct acsh occurred with: Not Discussed due to patient's condition * Full Code Date Activated Date Inactivated Comments 08/30/2023 8:07 AM 08/30/2023 12:53 PM This orde r reflects the patients wishes and were consensually agreed upon. Question Answer Comments Discussion of Advance Direct cash occurred with: Not Discussed due to patient's condition Care Teams Railroad Dining Car Stewardess Relationship Specialty Start Date End Date March, Joseph Vasquez MD [address] [place] [address] PCP - General Family Medicine 03/04/25 documented as of this encounter
--- OUTSIDE RECORDS SUMMARY | 2025-04-07 11:38 | External Medical Summary | Summary of Care ---
Author Name Unknown Organization [facility] Address [address] [facility] [address] Phone [phone] Care Team Providers Care Hand Molder Meat Name Role Phone Joseph Vazquez MD Primary Care Provider [phone] Reason for Visit * Reason Comments Medication Administration Vitamin B12 1, 000mcgXgeva 120mg * Episode Based Medications (Routine) - Authorized Specialty Diagnoses / Procedures Referred By Contac t Referred To Contact Diagnoses Malignant neoplasm of upper-outer quadrant of left breast in female, estrogen receptor positive (HCC) Procedures AL DENOSUMAB INJECTION Marquis Christiansen MD [address] [place] [address] [place] [address] Phone: tel: fax: Hematology/Oncology Treatment, [address] [address] Phone: tel: fax: Referral ID Status Reason Start Date Expiration Date V isits Requested Visits Authorized [id number] Authorized 03/16/2024 03/17/2026 [id number] Encounter Details Date Type Department Care Team (Late st Contact Info) Description 03/08/2025 9:30 AM EDT Immunization/I njection Hematology/Oncology Treatment, [address] [address] Nimo, Chair [address] Hem On[address] [place] [address] Malignant neoplasm of upper-outer quadrant of left [...] (Cymbalta)Indica tions:Major depressive disorder, recurrent episode, moderate ([facility]),Fibromyalg ia Take 1 Capsule by mouth in [...] Active Additional Information Patient taking differently:20 mg [id number], Reported on 01/30/2025 Esomeprazole Magnesium 40 MG [...] Each 5 01/14/20 25 Active Calcium 1200 0255-4585 MG-UNIT Oral Tablet Chewable Take 1 Tablet [...] 9:45 AM EDT Pharmacy Pharmacy Hematology Oncology [facility] [address] [place] [address] [facility] Hem/Onc [address] [place] [address] 04/01/2025 11:15 AM EDT Hospital Encounter ENDO [facility], Endoscopy Room [facility] [address] [place] [phone] Homar Padgett MD [address] [place] [address] 04/01/2025 11:15 AM EDT - 04/01/2025 12:15 PM EDT Surgery ENDO [facility], Endoscopy Room [facility] [address] [place] [phone] Homar Padgett MD [address] [place] [address] COLONOSCOPY FLEXIBLE PROXIMAL DIAGNOSTIC 04/03/2025 10:00 AM EDT Laboratory Laboratory, [address] [place] [phone] [place], Laboratory [address] [place] [address] 04/04/2025 9:30 AM EDT Immunization/Inject ion Hematology/Oncolog y Treatment, [place] [address] [place] [address] Nimo, Chair 10 Hem Onc Scen[address] [place] [address] 04/23/2025 9:45 AM EDT Imaging Radiology [facility] 1st [facility] [address] [place] [phone] 05/03/2025 9:00 AM EDT Office Visit Hematology/Oncolog y [facility] [address] [place] [phone] Marquis Christiansen MD [address] [place] [address] 06/24/2025 8:30 AM EDT Office Visit Cardiology, [facility] [address] [place] [phone] Homar Ware PAMerlene [address] [place] [address] Scheduled Procedures Name Priority Associated Diagnoses Date/Ti [...] Discussed due to patient's condition Care Teams Hand Molder Meat Relationship Specialty Start Date End Date March, Joseph Vasquez MD [address] [place] [address] PCP - General Family Medicine 03/04/25 documented as of this encounter
--- OUTSIDE RECORDS SUMMARY | 2025-04-07 11:38 | External Medical Summary | Summary of Care ---
Author Name Unknown Organization [facility] Address [address] [facility] [place] [address] Phone [phone] Care Team Providers Care Cementer Machine Joiner Name Role Phone Joseph Vazquez MD Primary Care Provider [phone] Reason for Visit * Reason Onset Date Comments Advice 12/07/2024 C diff? Encounter Details Date Type Department Care Team (Late st Contact Info) Description 12/07[facility]20[facility] [address] [place] [address] Rowena Banks PA-C [facility] [place] [address] Advice (C diff? ) Allergies Active Allergy Reactions Criticality Noted [...] the morning and 1 Drop before bedtime. 9 Active Naproxen Sodium 550 MG Oral Tablet TAKE 1 TABLET BY MOUTH TWICE A DAY WITH BREAKFAST AND DINNER 180 Tablet 1 3 Active Additional Information Patient not taking.Reported on 01/24/2025 aspirin enteric coated 81 MG TBEC Take 1 Tablet by mouth in the morning. 0 Active MotwinTouch Verio w/Device KitIndications:T ype 2 diabetes mellitus with hemoglobin A1c goal of less than 7.0% ([facility]) Use up to twice times a day E11.9 1 Kit 2 Active Albuterol Sulfate HFA 108 (90 Base) MCG/ACT Inhalation Aerosol Solution Inhale 2 Puffs by mouth every 6 hours as needed for Shortness of Breath or Wheezing. 8.5 g 11 4 Active DULoxetine HCl 60 MG Oral Capsule Delayed Release Particles (Cymbalta)Indica tions:Major depressive disorder, recurrent episode, moderate (HCC),Fibromyalg ia Take 1 Capsule by mouth in the morning. 90 Capsule 3 4 Active Vitamin E 200 UNIT Oral Tablet [...] as needed for Nausea. 90 Tablet 2 4 Active Carvedilol 6.25 MG Oral Tablet (Coreg)Indicatio ns:HTN, goal below 140/90 Take 1 Tablet by mouth 2 times a day with morning and evening meals. 180 Tablet 3 4 Active Cyclobenzaprine HCl 10 MG Oral Tablet (Flexeril)Indica tions:Piriformis syndrome of right side Take 1 Tablet by mouth 2 times a day as needed for Muscle spasms. 20 Tablet 4 Active Additional Information Patient not taking.Reported on 01/30/2025 Gabapentin 100 MG Oral Capsule (Neurontin)Indic ations:Neuropath y Take 2 capsules by mouth in the morning and 1 capsule by mouth at lunch and 1 capsule by mouth at dinner. 120 Capsule 5 4 Active Additional Information Patient taking differently: 200 mg Oral Daily(AM), Take 2 capsules by mouth in the morning, Reported on 01/30/2025 Famotidine 20 MG Oral Tablet (Pepcid) Take 1 Tablet by mouth in the morning and 1 Tablet before bedtime. 180 Tablet 3 4 Active Additional Information Patient taking differently:20 mg [id number], Reported on 01/30/2025 Esomeprazole Magnesium 40 MG Oral Capsule Delayed Release Take 1 Capsule by mouth daily before breakfast. 90 Capsule 3 4 Active oxyCODONE HCl 5 MG Oral Tablet (Oxy IR)Indications:M alignant neoplasm of upper-outer quadrant of left breast in female, estrogen receptor positive (HCC),Metastasis to bone (HCC) Take 1 Tablet by mouth every 6 hours as needed for Pain, Moderate. 60 Tablet 4 Active Serevent Diskus 50 MCG/ACT Inhalation Aerosol Powder Breath Activated (Salmeterol Xinafoate)Indica tions:Chronic cough Inhale 1 Puff by mouth in the morning and 1 Puff before bedtime. 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 30 Tablet 3 4 Active Additional Information Patient not taking.Reported on [...] Tobacco: Never Alcohol Use Standard Drinks/Week Comments Yes 0 (1 standard drink = 0.6 oz [...] encounter Miscellaneous Notes * Telephone Encounter - Tameka Trivedi LPN - 12/10/2024 11:39 AM EST Mina Studies are in process * Telephone Encounter - Rowena Banks PA-C - 12/07/2024 4:34 PM EST Orders in Diarrhea, unspecified type (Primary) - CLOSTRIDIUM DIFFICILE, PCR; Future; Expected date: 12/07/2024 History of Clostridioides difficile colitis - CLOSTRIDIUM DIFFICILE, PCR; Future; Expected date: 12/07/2024 Rowena Banks PA-C 12/07/2024 4:34 PM * Telephone Encounter - Jhon Grande LPN - 12/07/2024 4:00 PM EST Patient calling in today with complaints of Diarrhea x 2 wk's. She was started on Azithromycin for bronchitis on 11/20 and took for 3 days and stopped due to diarrhea. 12 loose stools a day,very foul smelling, and foam texture. Denies Blood. Taking Imodium, Zofran, and compazine as ordered. Oncology advised her to contact PCP office to get stool tested for C-diff. They state the Diarrhea is not from Chemo medications. Hx c-diff. Patient requesting C-diff order Pended order. * Telephone Encounter - Dominique Willett OSA - 12/07/2024 3:57 PM EST Reason for patient's call: Requesting to speak with nurse Caller was transferred to [place] at the nurse line. * Telephone Encounter - Skye Solitario OSA - 12/07/2024 2:34 PM EST Pt's daughter calling, is with pt. Mother was put on antibiotics recently and has been having severe diarrhea. Pt has a history of C diff. Pt was instructed to contact her family doctor. Please call them back to advise. documented in this encounter Plan of Treatment Upcoming Encounters Date Type Department Care Team (Latest Contact Info) Description 03/18/2025 9:45 AM EDT Pharmacy Pharmacy Hematology Oncology [facility] [address] [place] [address] [facility], [facility] Hem/Onc [address] [place] [address] 04/01/2025 11:15 AM EDT Hospital Encounter ENDO [facility], Endoscopy Room [facility] [address] [place] [address] Homar Padgett MD [address] [place] [address] 04/01/2025 11:15 AM EDT - 04/01/2025 12:15 PM EDT Surgery ENDO [facility], Endoscopy Room [facility] [address] [place] [phone] Homar Padgett MD [address] [place] [address] COLONOSCOPY FLEXIBLE PROXIMAL DIAGNOSTIC 04/03/2025 10:00 AM EDT Laboratory Laboratory, [place] [address] [place] [address] [place], Laboratory [address] [place] [address] 04/04/2025 9:30 AM EDT Immunization/Inject ion Hematology/Oncolog y Treatment, [place] [address] [place] [phone] Nimo, Chair 10 Hem Onc Scenery [address] [place] [address] 04/23/2025 9:45 AM EDT Imaging Radiology [facility] 1st Floor, [place] [address] [place] [phone] 05/03/2025 9:00 AM EDT Office Visit Hematology/Oncolog y [facility] [place] [address] [facility] [place] [phone] Marquis [place] MD [address] [place] [address] 06/24/2025 8:30 AM EDT Office Visit Cardiology, [facility] [address] [place] [phone] Homar Ware PA-C [address] [place] [address] Scheduled Orders Name Type Priority Associated Diagnoses Orde r Schedule CLOSTRIDIUM DIFFICILE, PCR Lab Routine Diarrhea, unspecified type History of Clostridioides difficile colitis Expected: 12/07/2024 (Approximate), Expires: 12/07/2025 Scheduled Procedures Name Priority Associated Diagnoses Date/Ti [...] as of this encounter Visit Diagnoses Diagnosis Diarrhea, unspecified type- Primary History of Clostridioides difficile colitis Gastroesophageal reflux disease, unspecified whether esophagitis present documented in this encounter Additional Health Concerns Infection Onset Date Last Indicated Resolved Time C. difficile Rule-Out 12/10/2024 12/10/20242024 12:19 AM EST documented as of this encounter Advance Directives * [...] Discussed due to patient's condition Care Teams Cementer Machine Joiner Relationship Specialty Start Date End Date March, Joseph Vasquez MD [address] [place] [address] PCP - General Family Medicine 03/04/25 documented as of this encounter
--- OUTSIDE RECORDS SUMMARY | 2025-04-07 11:39 | External Medical Summary | Summary of Care ---
Author Name Unknown Organization [facility] Address [address] [facility] [place] [address] Phone [phone] Care Team Providers Care Scrummaster Name Role Phone Rowena Banks PA-C Primary Care Provider +1 [phone] Reason for Visit * Reason Comments eRx-Medication Refill Encounter Details Date Type Department Care Team (Late st Contact Info) Description 02/18/2025 [facility]ill [facility] [address] [place] [address] Rowena Banks PA-C [address] [place] [address] Allergies Active Allergy Reactions Criticality Noted Date [...] as of this encounter (statuses as of 02/19/2025) Medications COMBIGAN 0.2-0.5 % ophthalmic solution Instill [...] Active Additional Information Patient taking differently:20 mg [id number], Reported on 01/30/2025 Esomeprazole Magnesium 40 MG [...] 100 Each 5 01/14/20 Active Calcium 1200 9643-0980 MG-UNIT Oral Tablet Chewable Take 1 Tablet [...] crush or cut.. 28 Tablet 5 5 3:28 PM EDT 01/29/20 Active Additional Information Patient [...] crush or cut.. 84 Tablet 5 5 3:28 PM EDT 01/29/20 Active Additional Information Patient not taking.Reported on 01/30/2025 Linzess 290 MCG Oral Capsule (linaCLOtide) Take 1 Capsule by mouth daily before breakfast. 90 Capsule 3 01/31/20 25 Active Gabapentin 300 MG Oral Capsule (Neurontin) Take 2 Capsules by mouth at bedtime 60 Capsule 01/07/20 25 025 Discontin ued(Refil l) Hospital, Clinic, or Other Facility Administered Medication Ordered Dose Route Frequency Start Date End Date Status albuterol sulfate (PROVENTIL) (2.5 MG/3ML) 0.083% inhalation solution 2.5 mgIndications:Restrictive lung disease,SOB (shortness of breath) 2.5 mg NEBULIZER Q4H PRN 11/07/2017 Act roe documented as of this encounter (statuses as of 02/19/2025) Active Problems Problem Noted Date Diagnosed Date [...] as of this encounter (statuses as of 02/19/2025) Resolved Problems Problem Noted Date Diagnosed Date [...] BY CAT, RIGHT FOOT 05/04/2011 08/0 11/2015 Deviated nasal septum 03/26/20112015 Cough 03/22/2011 06/21/2016 [...] as of this encounter (statuses as of 02/19/2025) Immunizations Name Administration Dates Next Due COVID-19 [...] encounter Miscellaneous Notes * Telephone Encounter - Elsie Okeefe - 02/19/2025 2:18 PM EDTRefused Prescriptions: Disp Refills Gabapentin 300 MG Oral Capsule (Neurontin) 60 Cap*0 Sig: Take 2Capsules by mouth at bedtimeRefused By: Ang OKEEFE for Refusal: Duplicate Request documented in this encounter Plan of Treatment Upcoming Encounters Date Type Department Care Team (Latest Contact Info) Description 02/22/2025 9:45 AM EDT Pharmacy Pharmacy Hematology Oncology [facility] [place] [address] [place] [address] [facility] Hem/Onc [address] [place] [address] 03/04/2025 9:00 AM EDT Office Visit Orthopaedics [facility] [address] [place] [address] Javed Salas DO [address] [place] [address] 03/07/2025 10:00 AM EDT Laboratory Laboratory, Brigid Peña 226 [facility] [place] [phone] [place], [facility] [address] [facility] [address] 03/08/2025 9:00 AM EDT Office Visit Hematology/Oncolog y [facility] Nimo [place] [address] [place] [address] Carlene Alcantara CRNP [address] [place], [place] [address] [address] 03/08/2025 9:30 AM EDT Immunization/Inject ion Hematology/Oncolog y Treatment, [place] [address] [place] [address] Nimo, Chair 10 Hem Onc [address] [place] [address] 04/01/2025 11:15 AM EDT Hospital Encounter ENDO [facility], Endoscopy Room O[facility] [address] [place] [address] Homar Padgett MD [address] [place] [address] 04/01/2025 11:15 AM EDT - 04/01/2025 12:15 PM EDT Surgery ENDO [facility], Endoscopy Room [facility] [address] [place] [address] Homar Padgett MD [address] [place] [address] COLONOSCOPY FLEXIBLE PROXIMAL DIAGNOSTIC 06/24/2025 8:30 AM EDT Office Visit Cardiology, [facility] [address] [place] [address] Homar Ware PA-C [address] [place] [address] Scheduled Procedures Name Priority Associated Diagnoses Date/Ti [...] Discussed due to patient's condition Care Teams Scrummaster Relationship Specialty Start Date End Date Rowena Banks PA-C [address] [place] [address] PCP - General Physician Friction Welding Machine Operator 06/01/22 documented as of this encounter
--- OUTSIDE RECORDS SUMMARY | 2025-04-07 11:39 | External Medical Summary | Summary of Care ---
Author Name Unknown Organization [facility] Address [address] [facility] [place] [address] Phone [phone] Care Team Providers Care Client Partner Name Role Phone Rowena Banks PA-C Primary Care Provider +1 [phone] Reason for Visit * Reason Onset Date Comments Test Results Lab 02/05/2025 Encounter Details Date Type Department Care Team (Late st Contact Info) Description 02/05/2025 Telephone Hematology/Oncology [facility] [place] [address] [place] [address] Marquis Christiansen MD [address] [place] [address] Test Results Lab Allergies Active Allergy Reactions Criticality Noted Date [...] as of this encounter (statuses as of 02/06/2025) Medications COMBIGAN 0.2-0.5 % ophthalmic solution Instill [...] goal of less than 7.0% ([facility]) Use up to twice times a [...] Active Additional Information Patient taking differently:20 mg [id number], Reported on 01/30/2025 Esomeprazole Magnesium 40 MG [...] Nausea. 30 Tablet 3 12/14/19 25 Active Gabapentin 300 MG Oral Capsule (Neurontin) Take 2 Capsules by mouth at bedtime 60 Capsule 01/07/20 25 Active Montelukast Sodium 10 MG Oral [...] 100 Each 5 01/14/20 Active Calcium 1200 8490-7623 MG-UNIT Oral Tablet Chewable Take 1 Tablet [...] not crush or cut.. 28 Tablet 5 02/01/2025 3:28 PM EDT 01/29/20 25 Active Additional Information [...] not crush or cut.. 84 Tablet 5 02/01/2025 3:28 PM EDT 01/29/20 Active Additional Information Patient not taking.Reported on 01/30/2025 Linzess 290 MCG Oral Capsule (linaCLOtide) Take 1 Capsule by mouth daily before breakfast. 90 Capsule 3 01/31/20 Active Hospital, Clinic, or Other Facility Administered Medication Ordered Dose Route Frequency Start Date End Date Status albuterol sulfate (PROVENTIL) (2.5 MG/3ML) 0.083% inhalation solution 2.5 mgIndications:Restrictive lung disease,SOB (shortness of breath) 2.5 mg NEBULIZER Q4H PRN 11/07/2017 Act roe documented as of this encounter (statuses as of 02/06/2025) Active Problems Problem Noted Date Diagnosed Date [...] as of this encounter (statuses as of 02/06/2025) Resolved Problems Problem Noted Date Diagnosed Date [...] as of this encounter (statuses as of 02/06/2025) Immunizations Name Administration Dates Next Due COVID-19 [...] Miscellaneous Notes * Telephone Encounter - Lj Kim RN - 02/06/2025 7:[address] Christiansen- please review message: "I discussed this the last time I was in we discussed what I was taking. Currently I am taking 2400mg of calcium daily and 3200 IU of Vit D. I take 2 tablets in the morning and 2 at night of the attached. Please advise if I need to take more. Also I take 2 protein pump inhibitors, Nexium and Pepcid can that affect the absorption of the calcium? I recently started the Pepcid in September. " * Telephone Encounter - Elizabeth Denise LPN - 02/05/2025 10:40 AM EDT My G sent. * Telephone Encounter - Marquis Christiansen MD - 02/05/2025 9:13 AM EDT -she should continue Calcium 2000 mg per day. -vitamin D level was around 23 as of 01/07/2025 and currently she is on vitamin-D 20 microgram. 1 microgram equal to 40 IU, so she is taking around 800 international units per day. We have to increase vitamin-D supplementations to around 2000 IU, she can continue current Calcium tablet which has vitamin-D and add additional vitamin-D about 1000 IU. ( does not have to be exact, can go up few 100s up , like 1200 or so) * Telephone Encounter - Elizabeth Denise LPN - 02/05/2025 8:[address] Christiansen Spoke with patient, clarified that she is currently taking "four tablets a day". Verified with patient that she is actually taking 2,000 mg of Calcium a day not the 1,800 mg. She verifies the supplement is 500-5 mg-mcg, equalling 20 mcg of D. * Telephone Encounter - Marquis Christiansen MD - 02/05/2025 8:49 AM EDT I am still confused about what dose of Calcium and vitamin-D she takes? Message says she is taking Calcium 500- 5 , how many tablets in a day, how it is making up total 1800 mg of Calcium and 120 microgram of vitamin-D? Estela, could you please clarify? * Telephone Encounter - Elizabeth Denise LPN - 02/05/2025 8:38 AM EDT Patient verbally verified she is taking the Calium 500-5 mg-mcg during the call. She is taking a total of 1800 mg of Calcium with 120 mcg of Vitamin D. * Telephone Encounter - Marquis Christiansen MD - 02/05/2025 8:21 AM EDT Is she taking vitamin-D? * Telephone Encounter - Elizabeth Denise LPN - 02/05/2025 7:55 AM EDT Spoke with patient, informed patient of the test result message from Dr. Christiansen below. Patient verbalized understanding. Dr. Christiansen: The patient clarified she is taking 1,800 mg of calcium a day. Please clarify how much more calciumthe patient is to take a day. * Telephone Encounter - Elizabeth Denise LPN - 02/05/2025 7:51 AM EDT ----- Message from Marquis Christiansen MD sent at 02/05/2025 7:44 AM EDT ----- Blood workup done on 02/04/2025: -BUN/Creat: 12/0.8 -Calcium level 7.8 -AST 45, ALT 75, alkaline phosphatase 538, bilirubin level 0.5. Last dose of Xgeva received on 11/30/2024. Hypocalcemia noted. Will have to hold Xgeva for this week. What dose of oral Calcium and vitamin-D supplementation is she on? We have to double the dose. Repeat blood workup in about 1 month with improvement of Calcium level, will proceed with the Xgeva. documented in this encounter Plan of Treatment Upcoming Encounters Date Type Department Care Team (Latest Contact Info) Description 02/08/2025 9:45 AM EDT Pharmacy Pharmacy Hematology Oncology [facility] [place] [address] [place] [address] [facility], [facility] Hem/Onc [address] [place] [address] 03/04/2025 9:00 AM EDT Office Visit Orthopaedics [facility] [address] [place] [phone] Javed Salas DO [address] [place] [address] 03/07/2025 10:00 AM EDT Laboratory Laboratory, [facility] [address] [facility] [phone] [facility] [address] 03/08/2025 9:00 AM EDT Office Visit Hematology/Oncolog y [facility] N[place] 200 [facility] [place] [address] Carlene Alcantara CRNP [address] [facility] [address] 03/08/2025 9:30 AM EDT Immunization/Inject ion Hematology/Oncolog y Treatment, [place] [address] [place] [address] Nimo, Chair 10 Hem Onc Scene 200 [facility] [place] [address] 04/01/2025 11:15 AM EDT Hospital Encounter ENDO [facility], Endoscopy Room [facility] [address] [place] [phone] Homar Padgett MD [address] [place] [address] 04/01/2025 11:15 AM EDT - 04/01/2025 12:15 PM EDT Surgery ENDO [facility], Endoscopy Room [facility] [address] [place] [address] Homar Padgett MD [address] [place] [address] COLONOSCOPY FLEXIBLE PROXIMAL DIAGNOSTIC 06/24/2025 8:30 AM EDT Office Visit Cardiology, [facility] [address] [place] [address] Homar Ware PA-C [address] [place] [address] Scheduled Procedures Name Priority Associated Diagnoses Date/Ti [...] 12/22/2009 Adult Wellness Visit 2021 Albumin/Creatinine Ratio 02/01/202401/31/2 023, 09/17/2019, 06/03/2014, Additional history exists COVID-19 Vaccine ( season) 2024 12/16/2021, 12/09/2021, 02/03/2021, Additional history exists Influenza Vaccine (FLU shot) (#1) 2024 09/23/2020, 10/05/2019, 08/17/2018, Additional history exists Pneumococcal Vaccine: 50+ Years (3 of 3 - PPSV23, PCV20 or PCV21) 10/05/2024 10/05/2019, 08/17/2018 HbA1c 02/20/2025 08/22/2024, 12/23, 08/04/2023, Additional history exists Depression Monitoring 08/20/2025 08/20/2024 Diabetic Eye Exam 11/21/2025 08/12/2016, 04/17/2013 Postponed from 08/12/2017 (Patient Declined After Education) GFR 02/04/2026 02/04/2025, 12/22, 12/24/2024, Additional history exists Colonoscopy 02/28/2028 02/27/2018, 0407/2018, [...] Discussed due to patient's condition Care Teams Client Partner Relationship Specialty Start Date End Date Rowena Banks PA-C [facility] [place] [address] PCP - General Physician Magnetic Testing Technician 06/01/22 documented as of this encounter
--- OUTSIDE RECORDS SUMMARY | 2025-04-07 11:39 | External Medical Summary | Summary of Care ---
Author Name Unknown Organization [facility] Address [address] [facility] [place] [address] Phone [phone] Care Team Providers Care General Manager Farm Name Role Phone Rowena Banks PA-C Primary Care Provider +1 -[phone] Reason for Visit * Reason Onset Date Comments Test Results Lab 02/05/2025 Encounter Details Date Type Department Care Team (Late st Contact Info) Description 02/05/2025 Telephone Hematology/Oncology [facility] [place] 200 [facility] [place] [address] Marquis Christiansen MD [address] [place] [address] Test Results Lab Allergies Active Allergy Reactions [...] as of this encounter (statuses as of 02/09/2025) Medications COMBIGAN 0.2-0.5 % ophthalmic solution Instill [...] Active Additional Information Patient taking differently:20 mg [id number], Reported on 01/30/2025 Esomeprazole Magnesium 40 MG [...] 100 Each 5 01/14/20 Active Calcium 1200 2060-2319 MG-UNIT Oral Tablet Chewable Take 1 Tablet [...] as of this encounter (statuses as of 02/09/2025) Active Problems Problem Noted Date Diagnosed Date [...] as of this encounter (statuses as of 02/09/2025) Resolved Problems Problem Noted Date Diagnosed Date [...] as of this encounter (statuses as of 02/09/2025) Immunizations Name Administration Dates Next Due COVID-19 [...] encounter Miscellaneous Notes * Telephone Encounter - Marquis Christiansen MD - 02/09/2025 4:25 PM EDT When she comes to the clinic, she should bring all her medications including Calcium vitamin-D. We should repeat comprehensive metabolic panel when she comes to the clinic. Meanwhile she should continue current dose of vitamin-D and Calcium that she is on.. * Telephone Encounter - Lj Kim RN [...] Pharmacy Pharmacy Hematology Oncology [facility] [place] [address] [place] [address] [facility], [facility] Clinic Hem/Onc [address] [place] [address] 03/04/2025 9:00 AM EDT Office Visit Orthopaedics [facility] [address] [place] [phone] Javed Salas, [address] [place] [phone] 03/07/2025 10:00 AM EDT Laboratory Laboratory, Brigid Peña 226 [facility] [phone] [place], [facility] [place] [address] 03/08/2025 9:00 AM EDT Office Visit Hematology/Oncolog y [address] [address] Carlene Alcantara CRNP [address] [place] [address] [place] [address] 03/08/2025 9:30 AM EDT Immunization/Inject ion Hematology/Oncolog y Treatment, [address] [place] [address] Nimo, Chair 10 Hem Onc Scenery [address] [place] [address] 04/01/2025 11:15 AM EDT Hospital Encounter ENDO [facility], Endoscopy Room OSS [address] [place] [phone] Homar Padgett MD [address] [place] [address] 04/01/2025 11:15 AM EDT - 04/01/2025 12:15 PM EDT Surgery ENDO [facility], Endoscopy Room [facility] [address] [place] [address] Homar Padgett MD [address] [place] [address] COLONOSCOPY FLEXIBLE PROXIMAL DIAGNOSTIC 06/24/2025 8:30 AM EDT Office Visit Cardiology, [facility] [address] [place] [address] Homar Ware, PA-C [address] [place] [address] Scheduled Procedures Name Priority Associated Diagnoses Date/Ti [...] 12/24/2024, Additional history exists Colonoscopy 02/28/2028 02/27/2018, 04/0 [...] Discussed due to patient's condition Care Teams General Manager Farm Relationship Specialty Start Date End Date Rowena Banks PA-C [address] [facility] [place] [address] PCP - General Physician Elevator Pilot 06/01/22 documented as of this encounter
--- OUTSIDE RECORDS SUMMARY | 2025-04-07 11:39 | External Medical Summary ---
Author Name Unknown Address Unknown Organization K01:LABORATORY C - [address] [place] [address] Laboratory Report Ordering Provider Test Date Status DINESH MOBLEY 03/07/2025 09:57:15 Final Observation Date Value Abnormality Reference (Units ) Status Phosphate 03/07/2025 09:57:15 4.1 2.5-4.8 (m g/dL) Final Performing Location [facility] - [address] [place] [address]
--- OUTSIDE RECORDS SUMMARY | 2025-04-07 11:39 | External Medical Summary | Summary of Care ---
Author Name Unknown Organization [facility] Address [address] [facility] [place] [address] Phone [phone] Care Team Providers Care Museum Director Name Role Phone Rowena Bonilla PA-C Primary Care Provider +1 -[phone] Reason for Visit * Reason Onset Date Comments Medication Refill 02/18/2025 Encounter Details Date Type Department Care Team (Late st Contact Info) Description 02/18/2025 [facility] [address] [facility] [place] [address] Rowena Bonilla PA-C 226 [facility] [place] [address] Allergies Active Allergy Reactions Criticality Noted [...] as of this encounter (statuses as of 02/20/2025) Medications COMBIGAN 0.2-0.5 % ophthalmic solution Instill [...] goal of less than 7.0% ([facility]) Use up to twice times [...] Active Additional Information Patient taking differently:20 mg [id number], Reported on 01/30/2025 Esomeprazole Magnesium 40 MG [...] 100 Each 5 01/14/20 Active Calcium 1200 4866-8364 MG-UNIT Oral Tablet Chewable Take 1 Tablet [...] at bedtime. 60 Capsule 02/20/20 25 Active Gabapentin 300 MG Oral Capsule [...] as of this encounter (statuses as of 02/20/2025) Active Problems Problem Noted Date Diagnosed Date [...] as of this encounter (statuses as of 02/20/2025) Resolved Problems Problem Noted Date Diagnosed Date [...] as of this encounter (statuses as of 02/20/2025) Immunizations Name Administration Dates Next Due COVID-19 [...] encounter Miscellaneous Notes * Telephone Encounter - Rowena Bonilla PA-C - 02/19/2025 4:41 PM EDTSigned Prescriptions: Disp Refills Gabapentin 300 MG Oral Capsule (Neurontin) 60 Cap*0 Sig: Take 2 Capsules by mouth at bedtime. Authorizing Provider: ROWENA BONILLA * Telephone Encounter - Cori Moffett LPN - 02/19/2025 2:52 PM EDTPending Prescriptions: Disp Refills Gabapentin 300 MG Oral Capsule (Neurontin) 60 Cap*0 Sig: Take 2 Capsules by mouth at bedtime. * Telephone Encounter - Elsie Mcgee - 02/19/2025 4:37 AM EDTPending Prescriptions: Disp Refills Gabapentin 300 MG Oral Capsule (Neurontin) 60 Cap*0 Sig: Take 2 Capsules by mouth at bedtime. documented in this encounter Plan of Treatment Upcoming Encounters Date Type Department Care Team (Latest Contact Info) Description 02/22/2025 9:45 AM EDT Pharmacy Pharmacy Hematology Oncology [facility] [address] [facility] [place] [address] [facility], [facility] Hem/Onc [address] [place] [address] 03/04/2025 9:00 AM EDT Office Visit Orthopaedics [facility] [address] [place] [address] Javed Salas, DO [address] [place] [phone] 03/07/2025 10:00 AM EDT Laboratory Laboratory, Brigid Cruz [address] [place] [phone] Brigid, Laboratory [address] [place] [address] 03/08/2025 9:00 AM EDT Office Visit Hematology/Oncolog y Scenery [place] 200 [facility] [phone] Carlene Alcantara CRNP [address] [place], [place] [address] [address] 03/08/2025 9:30 AM EDT Immunization/Inject ion Hematology/Oncolog y Treatment, [place] [address] [place], [place] [phone] Nimo, Chair 10 Hem Onc Scenery 200 [facility], [place] [address] 04/01/2025 11:15 AM EDT Hospital Encounter ENDO [facility], Endoscopy Room [facility] [address] [place] [phone] Homar Padgett MD [address] [place] [address] 04/01/2025 11:15 AM EDT - 04/01/2025 12:15 PM EDT Surgery ENDO [facility], Endoscopy Room [facility] [address] [place] [phone] Homar Padgett MD [address] [place] [address] COLONOSCOPY FLEXIBLE PROXIMAL DIAGNOSTIC 06/24/2025 8:30 AM EDT Office Visit Cardiology, [facility] [address] [place] [address] Homar Ware PA-C [address] [place] [address] Scheduled Procedures Name Priority Associated Diagnoses Date/Ti [...] Discussed due to patient's condition Care Teams Museum Director Relationship Specialty Start Date End Date Rowena Bonilla PA-C [address] [place] [address] PCP - General Physician Guide Foreign Tour 06/01/22 documented as of this encounter
--- OUTSIDE RECORDS SUMMARY | 2025-04-07 11:39 | External Medical Summary | Summary of Care ---
Author Name Unknown Organization [facility] Address [address] [place] [address] Phone [phone] Care Team Providers Care Payment Poster Name Role Phone Rowena Banks PA-C Primary Care Provider +1 [phone] Reason for Visit * Reason Comments Medication Management Encounter Details Date Type Department Care Team (Late st Contact Info) Description 02/08/2025 9:45 AM EDT Pharmacy Pharmacy Hematology Oncology [facility] [address] [place] [address] [facility] [facility] Hem/Onc [address] [place], [place] [id number] Malignant neoplasm of upper-outer quadrant of left [...] as of this encounter (statuses as of 02/08/2025) Medications ROME 0.2-0.5 % ophthalmic solution Instill [...] hemoglobin A1c goal of less than 7.0% ([facility]) Use up to twice times a day [...] Active Additional Information Patient taking differently:20 mg [id number], Reported on 01/30/2025 Esomeprazole Magnesium 40 MG [...] Tablets by mouth daily. 45 Tablet 01/11/20 Active Additional Information Patient not taking.Reported [...] sugar). 100 Each 01/14/20 Active Calcium 1200 6932-0747 MG-UNIT Oral Tablet Chewable Take 1 Tablet [...] as of this encounter (statuses as of 02/08/2025) Active Problems Problem Noted Date Diagnosed Date [...] as of this encounter (statuses as of 02/08/2025) Resolved Problems Problem Noted Date Diagnosed Date [...] (12/09/2011): quit 12/03/87 MORBID OBESITY, BMI= 42.43 907/29/2011 04/05/2017 LOCAL ALLERGIC REACTION, RIGHT FOOT 05/04/2011 [...] as of this encounter (statuses as of 02/08/2025) Immunizations Name Administration Dates Next Due COVID-19 [...] this encounter Progress Notes * Nessa Taveras, [facility] - 02/08/2025 1:08 PM EDT MEDICATION THERAPY MANAGEMENT CAPECITABINE TREATMENT PROGRESS NOTE Sarah Burgos [id number] Patient Phone Numbers Preferred Lab: Brigid[facility]: [facility] Communication: Spoke to: Patient Treatment: Medication: Capecitabine (Xeloda) Indication/Staging/Diagnosis Code: met ER+/CA+/HER2- breast cancer / C50.412 Dose Basis: 800mg/m2 Dose: 1650mg (3-500mg + 1-150mg tab) BID 7 days on, 7 days off Administration: within 30 minutes after AM/PM meals Start Date: 02/06/25 Primary Band Saw Operator/Oncologist: Dr. Rui Christiansen Supportive Care Meds: Xgeva Ondansetron Prochlorperazine Prophylactic Meds: Urea cream Relevant Chronic Medications: Category Medications Pertinent Notes Antihypertensives HCTZ 12.5mg daily Losartain 100mg daily Carvedilol 6.25mg BID Hydralazine 50mg TID Per cardiology Antidiabetic Sitagliptin Pt hx Anticoagulation ASA 81mg daily Pt hx Cycle Dates C1 02/06-02/12; 02/20-02/26 C2 03/06-03/12; 03/20-03/26 (anticipated) Treatment History: 12/25/19-05/22/20: DDAC + paclitaxel 07/07/20: b/l mastectomy 10/2020: RT 05/2020-10/2022: anastrozole 10/2022-02/2024: exemestane 03/28/24-01/2025: abemaciclib and fulvestrant Treatment Dose Adjustment/Hold History: N/A Interval History: Per [facility] encounter 01/31/25, capecitabine to ship 02/04/25 Confirms start date as above Confirms applying urea cream to hands and feet BID and denies HFS Reports one episode of diarrhea resolved with loperamide 4mg. Denies diarrhea recurrence or additional loperamide use Reports significant fatigue since starting treatment. States fatigue has started to improve today No other concerns Changes to medication list since last visit? No Drug interaction assessment: Treatment plan and current medication list evaluated for drug-drug interactions. No clinically significant drug interaction identified Assessment and Plan: Continue urea cream for HFS ppx Continue loperamide (MDD 16mg) as needed Advised pt fatigue expected with new treatment. Advised pt to contact office if fatigue worsens andaffects QoL or ADLs Continue current therapy Assessment of compliance: compliant Assessment of adverse effects attributed to drug therapy: Hand Foot Syndrome - absent Diarrhea - present Nausea/vomiting- absent Stomatitis - absent Dose adjustment needed based on lab or adverse drug reaction? No Follow up: 2 weeks Nessa Taveras, PharmD, BCOP Clinical Pharmacist, [facility] Oral Chemotherapy [facility] 02/08/2025, 3:32 PM Monitoring Parameters: Estimated CrCl Serum creatinine: 0.8 mg/dL 02/04/25 1150 Estimated creatinine clearance: 76.4 mL/min Hepatitis panel Latest Reference Range & [...] 100K and ANC > 1500 Pertinent labs: N/A Time Spent on Encounter: 6 - 10 minutes Encounter Group: Oncology Encounter Interventions Item Category: Oral Chemotherapy Capecitabine Problem/Rationale: Safety: Needs additional monitoring - Medication Requires monitoring Pharmacist Intervention(s): Non-pharmacological intervention provided and Toxicity monitoring Magnitude of Intervention: Monitoring with direction (Level 1) Second Item Second Item Category: Topicals Urea Problem/Rationale: Effectiveness: Needs additional monitoring - Medication Requires monitoring Pharmacist Intervention(s): Toxicity monitoring Magnitude of Intervention: Monitoring with direction (Level 1) Third Item Third Item Category: Anti-Diarrheal Loperamide Problem/Rationale: Effectiveness: Needs additional monitoring - Medication Requires monitoring Pharmacist Intervention(s): Toxicity monitoring Magnitude of Intervention: Monitoring with direction (Level 1) documented in this encounter Plan of Treatment Upcoming Encounters Date Type Department Care Team (Latest Contact Info) Description 02/22/2025 9:45 AM EDT Pharmacy Pharmacy Hematology Oncology [facility] [place] [address] [place] [address] [facility] Hem/Onc [address] [place] [address] 03/04/2025 9:00 AM EDT Office Visit Orthopaedics [facility] [address] [place] [phone] Javed Salas DO [address] [place] [phone] 03/07/2025 10:00 AM EDT Laboratory Laboratory, [place] [address] [place], [place] [phone] [facility] [address] [place] [address] 03/08/2025 9:00 AM EDT Office Visit Hematology/Oncolog y Scenery [facility] [place] [address] [facility], [place] [address] Carlene Alcantara CRNP [address] [facility] [place] [address] 03/08/2025 9:30 AM EDT Immunization/Inject ion Hematology/Oncolog y Treatment, [place] [address] [place] [phone] Nimo, Chair 10 Hem Onc Scenery [address] [place], [place] [address] 04/01/2025 11:15 AM EDT Hospital Encounter ENDO OSS, Endoscopy Room [facility] [address] [place] [phone] Homar Padgett MD [address] [place] [address] 04/01/2025 11:15 AM EDT - 04/01/2025 12:15 PM EDT Surgery ENDO O[facility], Endoscopy Room [facility] [address] [place] [address] Homar Padgett MD [address] [place] [address] COLONOSCOPY FLEXIBLE PROXIMAL DIAGNOSTIC 06/24/2025 8:30 AM EDT Office Visit Cardiology, [facility] [address] [place] [phone] Homar Ware PA-C [address] [place] [address] Scheduled Procedures Name Priority Associated Diagnoses Date/Ti [...] in female, estrogen receptor positive (HCC)- Primary Gastroesophageal reflux disease, unspecified whether esophagitis present [...] Discussed due to patient's condition Care Teams Payment Poster Relationship Specialty Start Date End Date Rowena Banks PA-C [address] [place] [address] PCP - General Physician Water Control Supervisor 06/01/22 documented as of this encounter
--- OUTSIDE RECORDS SUMMARY | 2025-04-07 11:39 | External Medical Summary | Summary of Care ---
Author Name Unknown Organization [facility] Address [address] [place] [address] Phone [phone] Care Team Providers Care Firearms Instructor Name Role Phone Rowena Banks PA-C Primary Care Provider +1 [phone] Reason for Visit * Reason Comments Medication Management Encounter Details Date Type Department Care Team (Late st Contact Info) Description 02/22/2025 9:45 AM EDT Pharmacy Pharmacy Hematology Oncology [facility] [address] [place] [address] [facility] Hem/Onc [address] [place], [place] [id number] Malignant neoplasm of upper-outer quadrant of left [...] as of this encounter (statuses as of 02/22/2025) Medications ROME 0.2-0.5 % ophthalmic solution Instill [...] hemoglobin A1c goal of less than 7.0% ([facility]) Use up to twice times a day [...] Active Additional Information Patient taking differently:20 mg [id number], Reported on 01/30/2025 Esomeprazole Magnesium 40 MG [...] sugar). 100 Each 01/14/20 Active Calcium 1200 2535-1874 MG-UNIT Oral Tablet Chewable Take 1 Tablet [...] as of this encounter (statuses as of 02/22/2025) Active Problems Problem Noted Date Diagnosed Date [...] as of this encounter (statuses as of 02/22/2025) Resolved Problems Problem Noted Date Diagnosed Date [...] as of this encounter (statuses as of 02/22/2025) Immunizations Name Administration Dates Next Due COVID-19 [...] this encounter Progress Notes * Nessa Taveras, [facility] - 02/22/2025 9:28 AM EDT MEDICATION THERAPY MANAGEMENT CAPECITABINE TREATMENT PROGRESS NOTE Sarah Burgos [id number] Patient Phone Numbers Preferred Lab: Brigid[facility]: [facility] Communication: Left message requesting return call to assess toleration to therapy Treatment: Medication: Capecitabine (Xeloda) Indication/Staging/Diagnosis Code: met ER+/MN+/HER2- breast cancer / C50.412 Dose Basis: 800mg/m2 Dose: 1650mg (3-500mg + 1-150mg tab) BID 7 days on, 7 days off Administration: within 30 minutes after AM/PM meals Start Date: 02/06/25 Primary Divemaster/Oncologist: Dr. Rui Christiansen Supportive Care Meds: Xgeva [...] Treatment Dose Adjustment/Hold History: N/A Interval History: N/A Changes to medication list since last visit? No Drug interaction assessment: Treatment plan and current medication list evaluated for drug-drug interactions. No clinically significant drug interaction identified Assessment and Plan: LM requesting call back to confirm cycle dates and tolerability Assessment of compliance: N/A Assessment of adverse effects attributed to drug therapy: N/A Dose adjustment needed based on lab or adverse drug reaction? No Follow up: 2 weeks OV/labs; 4 weeks MTM Nessa Taveras, PharmD, BCOP Clinical Pharmacist, [facility] Oral Chemotherapy [facility] 02/22/2025, 9:33 AM Monitoring Parameters: Estimated CrCl Serum creatinine: 0.8 [...] and ANC > 1500 Pertinent labs: N/A documented in this encounter Plan of Treatment Upcoming Encounters Date Type Department Care Team (Latest Contact Info) Description 03/04/2025 9:00 AM EDT Office Visit Orthopaedics [facility] [address] [place] [phone] Javed Salas DO [address] [place] [phone] 03/07/2025 10:00 AM EDT Laboratory Laboratory, Brigid Peña [address] [facility] [place] [address] [place], [facility] [address] [facility] [place] [address] 03/08/2025 9:00 AM EDT Office Visit Hematology/Oncolog y [facility] [place] [address] [place] [address] Carlene Alcantara CRNP 400 [facility] [place] [address] 03/08/2025 9:30 AM EDT Immunization/Inject ion Hematology/Oncolog y Treatment, [place] [facility] [address] Nimo, Chair [address] [place] [address] 03/18/2025 9:45 AM EDT Pharmacy Pharmacy Hematology Oncology [facility] [place] [address] [place] [facility] [place] [address] [facility], [facility] Hem/Onc [address] [place] [place] [place] [address] 04/01/2025 11:15 AM EDT Hospital Encounter ENDO OSSC, Endoscopy Room O[facility] [address] [place] [address] Homar Padgett MD [address] [place] [address] 04/01/2025 11:15 AM EDT - 04/01/2025 12:15 PM EDT Surgery ENDO [facility], Endoscopy Room [facility] [address] [place] [address] Homar Padgett MD [address] [place] [address] COLONOSCOPY FLEXIBLE PROXIMAL DIAGNOSTIC 06/24/2025 8:30 AM EDT Office Visit Cardiology, [facility] [address] [place] [address] Homar Ware, PAMarimarC [address] [place] [address] Scheduled Procedures Name Priority Associated Diagnoses Date/Ti [...] Discussed due to patient's condition Care Teams Firearms Instructor Relationship Specialty Start Date End Date Rowena Banks PA-C [facility] [place] [address] PCP - General Physician Business Performance Specialist 06/01/22 documented as of this encounter
--- OUTSIDE RECORDS SUMMARY | 2025-04-07 11:39 | External Medical Summary | Summary of Care ---
Author Name Unknown Organization [facility] Address [address] [facility] [place] [address] Phone [phone] Care Team Providers Care Dam Tender Assistant Name Role Phone Rowena Banks PA-C Primary Care Provider +1 [phone] Reason for Visit * Reason Onset Date Comments Test Results Lab 02/05/2025 Encounter Details Date Type Department Care Team (Late st Contact Info) Description 02/05/2025 Telephone Hematology/Oncology [facility] [place] [address] [facility] [place] [phone] Marquis Christiansen MD [address] [place] [address] Test Results Lab Allergies Active Allergy Reactions [...] as of this encounter (statuses as of 02/11/2025) Medications COMBIGAN 0.2-0.5 % ophthalmic solution Instill [...] less than 7.0% ([facility]) Use up to twice times a day [...] Active Additional Information Patient taking differently:20 mg [id number], Reported on 01/30/2025 Esomeprazole Magnesium 40 MG [...] 100 Each 5 01/14/20 Active Calcium 1200 8093-1272 MG-UNIT Oral Tablet Chewable Take 1 Tablet [...] as of this encounter (statuses as of 02/11/2025) Active Problems Problem Noted Date Diagnosed Date [...] as of this encounter (statuses as of 02/11/2025) Resolved Problems Problem Noted Date Diagnosed Date [...] as of this encounter (statuses as of 02/11/2025) Immunizations Name Administration Dates Next Due COVID-19 [...] encounter Miscellaneous Notes * Telephone Encounter - Elizabeth Denise LPN - 02/11/2025 9:50 AM EDT Spoke with patient, informed patient of provider message from 02/09/2025 below. Patient states she is agreeable to bringing her medications including the Calcium with Vitamin D with her to the next appointment. She verbalized understanding and states she will continue to do her lab work the day before her appointments as scheduled. She voices no further needs or requests at this time. * Telephone Encounter - Marquis Christiansen MD - 02/09/2025 4:25 PM EDT When she comes to the clinic, she should bring all her medications including Calcium vitamin-D. We should repeat comprehensive metabolic panel when she comes to the clinic. Meanwhile she should continue current dose of vitamin-D and Calcium that she is on.. * Telephone Encounter - Lj iKm RN - 02/06/2025 7:[address] [...] 9:45 AM EDT Pharmacy Pharmacy Hematology Oncology [facility] [address] [place] [address] [facility], [facility] Hem/Onc [address] [place] [address] 03/04/2025 9:00 AM EDT Office Visit Orthopaedics [facility] [address] [place] [phone] Javed Salas, [address] [place] [address] 03/07/2025 10:00 AM EDT Laboratory Laboratory, Brigid Cruz [address] [place] [phone] Mavis [place] [address] [place] [id number] 03/08/2025 9:00 AM EDT Office Visit Hematology/Oncolog y Scenery [place] [address] [place], [place] [phone] Carlene Alcantara CRNP [address] [facility] [place] [address] 03/08/2025 9:30 AM EDT Immunization/Inject ion Hematology/Oncolog y Treatment, [place] [address] [place], [place] [phone] Nimo, Chair 10 Hem Onc Scenery 200 [facility] [place], [place] [address] 04/01/2025 11:15 AM EDT Hospital Encounter ENDO OSSC, Endoscopy Room [facility] [address] [place] [phone] Homar Padgett MD [address] [place] [address] 04/01/2025 11:15 AM EDT - 04/01/2025 12:15 PM EDT Surgery ENDO OSSC, Endoscopy Room [facility] [address] [place] [phone] Homar Padgett MD [address] [place] [address] COLONOSCOPY FLEXIBLE PROXIMAL DIAGNOSTIC 06/24/2025 8:30 AM EDT Office Visit Cardiology, [facility] [address] [place] [phone] Homar Ware PA-C [address] [place] [address] Scheduled Procedures Name Priority Associated Diagnoses Date/Ti [...] 12/24/2024, Additional history exists Colonoscopy 02/28/2028 02/27/2018, 0 [...] Discussed due to patient's condition Care Teams Dam Tender Assistant Relationship Specialty Start Date End Date Rowena Banks PA-C [address] [place] [address] PCP - General Physician Fire Prevention Bureau Captain 06/01/22 documented as of this encounter
--- OUTSIDE RECORDS SUMMARY | 2025-04-07 11:39 | External Medical Summary ---
Author Name Unknown Address Unknown Organization K01:LABORATORY [facility] - [address] [facility] [place] [address] Laboratory Report Ordering Provider Test Date Status DINESH MOBLEY 03/07/2025 09:57:15 Final Observation Date Value Abnormality Reference (Units ) Status BUN 03/07/2025 09:57:15 11 6-20 (mg/dL) Final Creatinine 03/07/2025 09:57:15 0.6 0.5-1.0 (mg/dL) Final Glomerular filtration rate/1.73 sq M.predicted [Volume Rate/Area] in Serum, Plasma or Blood by Creatinine-based formula (CKD-EPI) 03/07/2025 09:57:15 >90 >=60 (mL/min) Final eGFR is calculated based on the CKD-EPI 2020 equation. Sodium 03/07/2025 09:57:15 142 135-146 (m mol/L) Final Potassium 03/07/2025 09:57:15 4.2 3.5-5.1 (m mol/L) Final Cl 03/07/2025 09:57:15 108 Above high normal 98 -107 (mmol/L) Final CO2 03/07/2025 09:57:15 22 22-32 (mmo l/L) Final Anion gap 03/07/2025 09:57:15 12 7-15 (mmol /L) Final Glucose 03/07/2025 09:57:15 140 Above high normal 70 -120 (mg/dL) Final Albumin 03/07/2025 09:57:15 3.8 3.8-5.0 (g /dL) Final AST (Aspartate aminotransferase) 03/07/2025 09:57:15 32 10-35 (U/L) Fin al Alk Phos 03/07/2025 09:57:15 415 Above high normal 35 -130 (U/L) Final Bilirubin, Total 03/07/2025 09:57:15 0.6 <=1 .2 (mg/dL) Final Calcium 03/07/2025 09:57:15 8.9 8.4-10.2 ( mg/dL) Final Protein 03/07/2025 09:57:15 6.3 6.0-8.3 (g /dL) Final ALT (Alanine aminotransferase) 03/07/2025 09:57:15 17 10-35 (U/L) Charan bridges Performing Location LABORATORY [facility] - [address] [facility] [address]
--- OUTSIDE RECORDS SUMMARY | 2025-04-07 11:39 | External Medical Summary | Summary of Care ---
Author Name Unknown Organization [facility] Address [address] [facility] [place] [address] Phone [phone] Care Team Providers Care Retail Loss Prevention Investigator Name Role Phone Rowena Banks PA-C Primary Care Provider +1 [phone] Reason for Visit * Reason Comments Medication Administration B12, Hold Xgev a Encounter Details Date Type Department Care Team (Late st Contact Info) Description 02/05/2025 11:30 AM EDT Immunization/In jection Hematology/Oncology Treatment, [address] [address] Nimo, Chair [address] [address] B12 deficiency* Allergies Active Allergy Reactions [...] as of this encounter (statuses as of 02/26/2025) Medications COMBIGAN 0.2-0.5 % ophthalmic solution Instill [...] goal of less than 7.0% ([facility]) Use up to twice times a day [...] Active Additional Information Patient taking differently:20 mg [id number], Reported on 01/30/2025 Esomeprazole Magnesium 40 MG [...] 100 Each 5 01/14/20 Active Calcium 1200 9355-1853 MG-UNIT Oral Tablet Chewable Take 1 Tablet [...] as of this encounter (statuses as of 02/26/2025) Active Problems Problem Noted Date Diagnosed Date [...] as of this encounter (statuses as of 02/26/2025) Resolved Problems Problem Noted Date Diagnosed Date [...] as of this encounter (statuses as of 02/26/2025) Immunizations Name Administration Dates Next Due COVID-19 [...] as of this encounter Nursing Notes * Kay Wilson RN - 02/05/2025 11:40 AM EDT Chair 1. Patient here for B12 injection. See previous TE from this AM regarding Xgeva injection, Calcium waslow - will recheck in 1 month after appt with PAULINO Hollingsworth. Patient taking calcium and vitamin D supplements. Injection given in R arm per order, tolerated well, pt left facility in stable condition and deniedfurther needs. documented in this encounter Plan of Treatment Upcoming Encounters Date Type Department Care Team (Latest Contact Info) Description 03/04/2025 9:00 AM EDT Office Visit Orthopaedics [facility] [address] [place] [phone] Javed Salas DO [address] [place] [address] 03/07/2025 10:00 AM EDT Laboratory [facility] [place] [facility] [address] [facility] [place] [address] Brigid [facility] 226 [facility] [place] [address] 03/08/2025 9:00 AM EDT Office Visit Hematology/Oncolog y [facility] [place] [address] [facility] [address] Carlene Alcantara CRNP [address] [place], [place] [phone] 03/08/2025 9:30 AM EDT Immunization/Inject ion Hematology/Oncolog y Treatment, [place] 200 [place] [address] Nimo, Chair [address] Hem Onc [address] [address] 03/18/2025 9:45 AM EDT Pharmacy Pharmacy Hematology Oncology [facility] [address] [place] [address] [facility]c [address] [place] [address] 04/01/2025 11:15 AM EDT Hospital Encounter ENDO [facility], Endoscopy Room [facility] [address] [place] [phone] Homar Padgett MD [address] [place] [address] 04/01/2025 11:15 AM EDT - 04/01/2025 12:15 PM EDT Surgery ENDO [facility], Endoscopy Room [facility] [address] [place] [address] Homar Padgett MD [address] [place] [address] COLONOSCOPY FLEXIBLE PROXIMAL DIAGNOSTIC 06/24/2025 8:30 AM EDT Office Visit Cardiology, [facility] [address] [place] [address] Homar Ware PA-C [address] [place] [address] Scheduled Procedures Name Priority Associated Diagnoses Date/Ti [...] Diagnosis B12 deficiency- Primary Other B-complex deficiencies Gastroesophageal reflux disease, unspecified whether esophagitis present documented in this encounter Administered Medications Inactive Administered Medications - up to 3 most recent administrations Medication Order MAR Action Action Date Dose Rate Site Vitamin B-12 (Cyanocobalamin) inj 1,000 mcg 1,000 mcg, Intramuscular, ONCE, On Tue02/05/25 at 1230, For 1 doseIndications:B12 deficiency Given 02/05/2025 11:38 AM EDT 1,000 mcg Arm Right Upper documented [...] Discussed due to patient's condition Care Teams Retail Loss Prevention Investigator Relationship Specialty Start Date End Date Rowena Banks PA-C [address] [place] [address] PCP - General Physician Scrap Handler 06/01/22 documented as of this encounter
--- OUTSIDE RECORDS SUMMARY | 2025-04-07 11:40 | External Medical Summary | Summary of Care ---
Author Name Unknown Organization [facility] Address [address] [facility] [place] [address] Phone [phone] Care Team Providers Care Cognos Lead Name Role Phone Rowena Banks PA-C Primary Care Provider +1 [phone] Reason for Visit * Reason Onset Date Comments Test Results Lab 02/05/2025 Encounter Details Date Type Department Care Team (Late st Contact Info) Description 02/05/2025 Telephone Hematology/Oncology [facility] [place] [address] [place] [phone] Marquis Christiansen MD [address] [place] [address] Test Results Lab Allergies Active Allergy Reactions [...] as of this encounter (statuses as of 02/05/2025) Medications COMBIGAN 0.2-0.5 % ophthalmic solution Instill [...] hemoglobin A1c goal of less than 7.0% ([facility]) Use up to twice times [...] Active Additional Information Patient taking differently:20 mg [id number], Reported on 01/30/2025 Esomeprazole Magnesium 40 MG [...] 100 Each 5 01/14/20 Active Calcium 1200 5388-6526 MG-UNIT Oral Tablet Chewable Take 1 Tablet [...] as of this encounter (statuses as of 02/05/2025) Active Problems Problem Noted Date Diagnosed Date [...] as of this encounter (statuses as of 02/05/2025) Resolved Problems Problem Noted Date Diagnosed Date [...] as of this encounter (statuses as of 02/05/2025) Immunizations Name Administration Dates Next Due COVID-19 [...] Department Care Team (Latest Contact Info) Description 02/05/2025 11:30 AM EDT Immunization/Injec tion Hematology/Oncology Treatment, [place] [address] [place] [address] Nimo, Chair [address] On[address] [place] [address] 02/08/2025 9:45 AM EDT Pharmacy Pharmacy Hematology Oncology [facility] [address] [place] [address] [facility], [facility] Hem/Onc [address] [place] [address] 03/04/2025 9:00 AM EDT Office Visit Orthopaedics [facility] [address] [place] [address] Javed Salas DO [address] [place] [phone] 04/01/2025 11:15 AM EDT Hospital Encounter ENDO OSSC, Endoscopy Room [facility] [address] [place] [phone] Homar Padgett MD [address] [place], [place] [address] 04/01/2025 11:15 AM EDT - 04/01/2025 12:15 PM EDT Surgery ENDO OSSC, Endoscopy Room [facility] [address] [place] [address] Homar Padgett MD [address] [place] [address] COLONOSCOPY FLEXIBLE PROXIMAL DIAGNOSTIC 06/24/2025 8:30 AM EDT Office Visit Cardiology, [facility] [address] [place] [address] Homar Ware, [place] [address] [place] [address] Scheduled Procedures Name Priority Associated Diagnoses Date/Ti [...] Discussed due to patient's condition Care Teams Cognos Lead Relationship Specialty Start Date End Date Rowena Banks PA-C [address] [place] [address] PCP - General Physician Leather Patcher 06/01/22 documented as of this encounter
--- OUTSIDE RECORDS SUMMARY | 2025-04-07 11:40 | External Medical Summary | Summary of Care ---
Author Name Unknown Organization [facility] Address [address] [facility] [place] [address] Phone [phone] Care Team Providers Care Actuary Manager Name Role Phone Rowena Banks PA-C Primary Care Provider [phone] [phone] Reason for Visit * Reason Onset Date Comments Test Results Lab 02/05/2025 Encounter Details Date Type Department Care Team (Late st Contact Info) Description 02/05/2025 Telephone Hematology/Oncology [facility] [place] [address] [place] [phone] Marquis Christiansen MD [address] [place] [address] Test Results Lab Allergies Active Allergy Reactions [...] A1c goal of less than 7.0% ([facility]) Use up to twice times [...] Active Additional Information Patient taking differently:20 mg [id number], Reported on 01/30/2025 Esomeprazole Magnesium 40 MG [...] 100 Each 5 01/14/20 Active Calcium 1200 0444-7566 MG-UNIT Oral Tablet Chewable Take 1 Tablet [...] 11:30 AM EDT Immunization/Injec tion Hematology/Oncology Treatment, [place] 200 [place] [phone] Nimo, Chair 10 Hem Onc Scenery [address] [place] [address] 02/08/2025 9:45 AM EDT Pharmacy Pharmacy Hematology Oncology [facility] [address] [place] [address] [facility], [facility] Hem/Onc [address] [place] [address] 03/04/2025 9:00 AM EDT Office Visit Orthopaedics [facility] [address] [place] [phone] Javed Salas, [address] [place] [address] 04/01/2025 11:15 AM EDT Hospital Encounter ENDO OSSC, Endoscopy Room [facility] [address] [place] [address] Homar Padgett MD [address] [place] [address] 04/01/2025 11:15 AM EDT - 04/01/2025 12:15 PM EDT Surgery ENDO OSSC, Endoscopy Room [facility] [address] [place] [phone] Homar Padgett MD [address] [place] [address] COLONOSCOPY FLEXIBLE PROXIMAL DIAGNOSTIC 06/24/2025 8:30 AM EDT Office Visit Cardiology, [facility] [address] [place] [address] Homar Ware, PAMarimarC [address] [place] [address] Scheduled Procedures Name Priority Associated Diagnoses Date/Ti [...] 12/22/2009 Adult Wellness Visit 2021 Albumin/Creatinine Ratio 02/01/202401/31/ 023, 09/17/2019, 06/03/2014, Additional history exists COVID-19 Vaccine ( season) 2024 12/16/2021, 12/09/2021, 02/03/2021, Additional history exists Influenza Vaccine (FLU shot) (#1) 2024 09/23/2020, 10/05/2019, 08/17/2018, Additional history exists Pneumococcal Vaccine: 50+ Years (3 of 3 - PPSV23, PCV20 or PCV21) 10/05/2024 10/05/2019, 08/17/2018 HbA1c 02/20/2025 08/22/2024, 0204/2024, 08/04/2023, Additional history exists Depression Monitoring 08/20/2025 [...] Discussed due to patient's condition Care Teams Actuary Manager Relationship Specialty Start Date End Date Rowena Banks PA-C [address] [facility] [place] [address] PCP - General Physician Accounting Clerk 06/01/22 documented as of this encounter
--- OUTSIDE RECORDS SUMMARY | 2025-04-07 11:40 | External Medical Summary | Summary of Care ---
Author Name Unknown Organization [facility] Address [address] [facility] [place] [address] Phone [phone] Care Team Providers Care Sales Merchandiser Name Role Phone Rowena Banks PA-C Primary Care Provider [phone] [phone] Reason for Visit * Reason Onset Date Comments Test Results Lab 02/05/2025 Encounter Details Date Type Department Care Team (Late st Contact Info) Description 02/05/2025 Telephone Hematology/Oncology [facility] [place] [address] [place] [phone] Marquis Christiansen MD [address] [place] [address] Test Results Lab Allergies Active Allergy Reactions [...] Active Additional Information Patient taking differently:20 mg [id number], Reported on 01/30/2025 Esomeprazole Magnesium 40 MG [...] 100 Each 5 01/14/20 Active Calcium 1200 0324-1282 MG-UNIT Oral Tablet Chewable Take 1 Tablet [...] 11:30 AM EDT Immunization/Injec tion Hematology/Oncology Treatment, [place] 200 [place] [address] Nimo, Chair 10 Hem Onc Scenery 200 [place] [address] 02/08/2025 9:45 AM EDT Pharmacy Pharmacy Hematology Oncology [facility] [address] [place] [address] [facility], [facility] Hem/Onc [address] [place] [address] 03/04/2025 9:00 AM EDT Office Visit Orthopaedics [facility] [address] [place] [phone] Javed Salas, [address] [place] [address] 04/01/2025 11:15 AM EDT Hospital Encounter ENDO OSSC, Endoscopy Room [facility] [address] [place] [address] Homar Padgett MD [address] [place] [address] 04/01/2025 11:15 AM EDT - 04/01/2025 12:15 PM EDT Surgery ENDO OSSC, Endoscopy Room [facility] [address] [place] [phone] Homar Padgett MD [address] [place] [address] COLONOSCOPY FLEXIBLE PROXIMAL DIAGNOSTIC 06/24/2025 8:30 AM EDT Office Visit Cardiology, [facility] [address] [place] [address] Homar Ware, PAMarimarC [address] [place] [address] Scheduled Procedures Name Priority Associated Diagnoses Date/Ti [...] Discussed due to patient's condition Care Teams Sales Merchandiser Relationship Specialty Start Date End Date Rowena Banks PA-C [address] [facility] [place] [address] PCP - General Physician Electric Truck Crane Operator 06/01/22 documented as of this encounter
--- OUTSIDE RECORDS SUMMARY | 2025-04-07 11:40 | External Medical Summary | Summary of Care ---
Author Name Unknown Organization [facility] Address [address] [facility] [place] [address] Phone [phone] Care Team Providers Care Irrigation Engineer Name Role Phone Rowena Banks PA-C Primary Care Provider [phone] [phone] Reason for Visit * Reason Onset Date Comments Test Results Lab 02/05/2025 Encounter Details Date Type Department Care Team (Late st Contact Info) Description 02/05/2025 Telephone Hematology/Oncology [facility] [place] [address] [place] [phone] Marquis Christiansen MD [address] [place] [address] Test Results Lab Allergies Active Allergy Reactions [...] ([facility]) Use up to twice [...] Active Additional Information Patient taking differently:20 mg [id number], Reported on 01/30/2025 Esomeprazole Magnesium 40 MG [...] 100 Each 5 01/14/20 Active Calcium 1200 3094-2551 MG-UNIT Oral Tablet Chewable Take 1 Tablet [...] 9:45 AM EDT Pharmacy Pharmacy Hematology Oncology [facility] [address] [place] [address] [facility] Hem/Onc [address] [place] [address] 03/04/2025 9:00 AM EDT Office Visit Orthopaedics [facility] [address] [place] [phone] Javed Salas, [address] [place] [address] 03/07/2025 10:00 AM EDT Laboratory Laboratory, [address] [place] [address] [facility] [address] [place] [address] 03/08/2025 9:00 AM EDT Office Visit Hematology/Oncolog y [place] [address] [facility], [place] [phone] Carlene Alcantara CRNP [address] [facility] [place] [address] 03/08/2025 9:30 AM EDT Immunization/Inject ion Hematology/Oncolog y Treatment, [place] 200 [facility], [place] [address] Nimo, Chair 10 Hem Onc Scenery [address] [facility], [place] [address] 04/01/2025 11:15 AM EDT Hospital Encounter ENDO OSSC, Endoscopy Room [facility] [address] [place] [phone] Homar Padgett MD [address] [place] [address] 04/01/2025 11:15 AM EDT - 04/01/2025 12:15 PM EDT Surgery ENDO OSSC, Endoscopy Room [facility] [address] [place] [phone] Homar Padgett MD [address] [place] [address] COLONOSCOPY FLEXIBLE PROXIMAL DIAGNOSTIC 06/24/2025 8:30 AM EDT Office Visit Cardiology, [facility] [address] [place] [address] Homar Ware PA-C [address] [place] [address] Scheduled Procedures Name Priority Associated Diagnoses Date/Ti [...] Discussed due to patient's condition Care Teams Irrigation Engineer Relationship Specialty Start Date End Date Rowena Banks PA-C [address] [place] [address] PCP - General Physician Wood Bucker 06/01/22 documented as of this encounter
--- OUTSIDE RECORDS SUMMARY | 2025-04-07 11:40 | External Medical Summary | Summary of Care ---
Author Name Unknown Organization [facility] Address [address] [facility] [place] [address] Phone [phone] Care Team Providers Care Flame Hardener Name Role Phone Rowena Banks PA-C Primary Care Provider [phone] [phone] Reason for Visit * Reason Onset Date Comments Precert Future 01/24/2025 xeloda Encounter Details Date Type Department Care Team (Late st Contact Info) Description 01/24/2025 Telephone Hematology/Oncology Treatment, [place] [address] [facility] [phone] Marquis Christiansen MD 200 [place] [address] Precert Future (xeloda) Allergies Active Allergy Reactions Criticality Noted Date [...] the morning and 1 Drop before bedtime. 019 Active Naproxen Sodium 550 MG Oral Tablet TAKE 1 TABLET BY MOUTH TWICE A DAY WITH BREAKFAST AND DINNER 180 Tablet 1 023 Active Additional Information Patient not taking.Reported on 01/24/2025 aspirin enteric coated 81 MG TBEC Take 1 Tablet by mouth in the morning. 020 Active OneTouch Verio w/Device KitIndications: Type 2 diabetes mellitus with hemoglobin A1c goal of less than 7.0% ([facility]) Use up to twice times a day E11.9 1 Kit 022 Active Albuterol Sulfate HFA 108 (90 Base) MCG/ACT Inhalation Aerosol Solution Inhale 2 Puffs by mouth every 6 hours as needed for Shortness of Breath or Wheezing. 8.5 g 11 024 Active DULoxetine HCl 60 MG Oral Capsule Delayed Release Particles (Cymbalta)Indic ations:Major depressive disorder, recurrent episode, moderate (HCC),Fibromyal lito Take 1 Capsule by mouth in the morning. 90 Capsule 3 024 Active Vitamin E 200 UNIT Oral Tablet Take by mouth. Activ e Eye Multivitamin OR Capsule Take 1 Capsule by mouth in the morning. Active Calcium Carb-Cholecalci ferol 500-5 MG-MCG Oral Tablet (Calcium 500+D3) Take by mouth. 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 90 Tablet 2 024 Active Carvedilol 6.25 MG Oral Tablet (Coreg)Indicati ons:HTN, goal below 140/90 Take 1 Tablet by mouth 2 times a day with morning and evening meals. 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 20 Tablet 024 Active Additional Information Patient not taking.Reported on 01/30/2025 Gabapentin 100 MG Oral Capsule (Neurontin)Sharee cations:Neuropa thy Take 2 capsules by mouth in the morning and 1 capsule by mouth at lunch and 1 capsule by mouth at dinner. 120 Capsule 5 024 Active Additional Information Patient taking differently: 200 mg Oral Daily(AM), Take 2 capsules by mouth in the morning, Reported on 01/30/2025 Famotidine 20 MG Oral Tablet (Pepcid) Take 1 Tablet by mouth in the morning and 1 Tablet before bedtime. 180 Tablet 3 024 Active Additional Information Patient taking differently:20 mg [id number], Reported on 01/30/2025 Esomeprazole Magnesium 40 MG Oral Capsule Delayed Release Take 1 Capsule by mouth daily before breakfast. 90 Capsule 3 024 Active oxyCODONE HCl 5 MG Oral Tablet (Oxy IR)Indications: Malignant neoplasm of upper-outer quadrant of left breast in female, estrogen receptor positive (HCC),Metastasi s to bone (HCC) Take 1 Tablet by mouth every 6 hours as needed for Pain, Moderate. 60 Tablet 024 Active Serevent Diskus 50 MCG/ACT Inhalation Aerosol Powder Breath Activated (Salmeterol Xinafoate)Indic ations:Chronic cough Inhale 1 Puff by mouth in the morning and 1 Puff before bedtime. 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 30 Tablet 3 025 Active Gabapentin 300 MG Oral Capsule (Neurontin) Take 2 Capsules by mouth at bedtime 60 Capsule 025 Active Montelukast Sodium 10 MG Oral Tablet (Singulair)Sharee cations:Chronic cough TAKE 1 TABLET BY MOUTH EVERY MORNING 90 Tablet 3 025 Active Losartan Potassium 25 MG Oral Tablet (Cozaar)Indicat ions:HTN, goal below 140/90 Take 0.5 Tablets by mouth daily. 45 Tablet 3 Active Additional Information Patient not taking.Reported on 01/30/2025 Fluticasone Propionate 50 MCG/ACT Nasal Suspension (Flonase)Indica tions:Dysfuncti on of Eustachian tube, bilateral USE 2 SPRAYS IN EACH NOSTRIL ONCE DAILY IF NEEDED FOR CONGESTION 48 g 1 025 Active OneTouch Verio In Vitro Strip (Glucose Blood)Indicatio ns:Type 2 diabetes mellitus with hemoglobin A1c goal of less than 7.0% (HCC) Use up to 2 times a day E11.9 100 Strip 5 025 Active OneTouch UltraSoft LancetsIndicati ons:Type 2 diabetes mellitus with hemoglobin A1c goal of less than 7.0% (HCC) Use as directed 2 times a day as needed for Hyperglycemia (high sugar) or Hypoglycemia (low sugar). 100 Each 5 025 Active Calcium 1200 8249-2241 MG-UNIT Oral Tablet Chewable Take 1 Tablet by mouth in the morning. 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 60 Tablet 5 5 7:32 AM EST 024 2024 Discontinued Hospital, Clinic, or Other Facility Administered Medication [...] Telephone Encounter - Sandra Kenyon OSA - 02/05/2025 11:29 AM EDT Apts scheduled for 03/08 Labs day prior per pt request Provider and inj scheduled for 03/08 pt is aware * Telephone Encounter - Loi Bess OSA - 02/04/2025 9:03 AM EDT Left message * Telephone Encounter - Estela Whitlock RN - 02/04/2025 7:27 AM EDT Per MTM note, patient is starting xeloda once received. Scheduling: please follow up with patient to schedule follow up with Dr Christiansen or PAULINO in about 1 month. After injection tomorrow, will be due for next labs/ xgeva 03/05/25 if she wants to combine withthis. Thanks! * Telephone Encounter - Estela Whitlock RN - 02/01/2025 9:31 AM EDT Per chart review, xeloda is being shipped 02/04/25. * Telephone Encounter - Lj Kim RN - 01/30/2025 12:31 PM EDT Education completed. MTM to follow up tomorrow. * Telephone Encounter - Estela Whitlock RN - 01/25/2025 1:17 PM EST Referral entered, can be filled through [facility]. * Telephone Encounter - Estela Whitlock RN - 01/24/2025 4:52 PM EST Order received for xeloda. Forwarded order to [facility]. Education 01/30/25. Hep B labs 02/07/24. documented in this encounter Plan of Treatment Upcoming Encounters Date Type Department Care Team (Latest Contact Info) Description 02/08/2025 9:45 AM EDT Pharmacy Pharmacy Hematology Oncology [facility] [address] [place] [address] [facility] Hem/Onc [address] [place] [address] 03/04/2025 9:00 AM EDT Office Visit Orthopaedics [facility] [address] [place] [phone] Javed Salas, [address] [place] [address] 03/07/2025 10:00 AM EDT Laboratory Laboratory, [address] [place] [phone] [facility] [address] [place] [address] 03/08/2025 9:00 AM EDT Office Visit Hematology/Oncolog y [place] [address] [place] [phone] Carlene Alcantara CRNP 400 [facility] [place] [address] 03/08/2025 9:30 AM EDT Immunization/Inject ion Hematology/Oncolog y Treatment, [place] [address] [place], [place] [phone] Nimo, Chair 10 Hem Onc Scenery [address] [place] [address] 04/01/2025 11:15 AM EDT Hospital Encounter ENDO OSSC, Endoscopy Room [facility] [address] [place] [phone] Homar Padgett MD [address] [place] [address] 04/01/2025 11:15 AM EDT - 04/01/2025 12:15 PM EDT Surgery ENDO OSSC, Endoscopy Room [facility] [address] [place] [phone] Homar Padgett MD [address] [place] [address] COLONOSCOPY FLEXIBLE PROXIMAL DIAGNOSTIC 06/24/2025 8:30 AM EDT Office Visit Cardiology, [facility] [address] [place] [address] Homar Ware PAMarimarC [address] [place] [address] Scheduled Procedures Name Priority Associated Diagnoses Date/Ti [...] Discussed due to patient's condition Care Teams Flame Hardener Relationship Specialty Start Date End Date Rowena Banks PA-C [address] [place] [address] PCP - General Physician Air Value Tester 06/01/22 documented as of this encounter
--- OUTSIDE RECORDS SUMMARY | 2025-04-07 11:40 | External Medical Summary | Summary of Care ---
Author Name Unknown Organization [facility] Address [address] [facility] [place] [address] Phone [phone] Care Team Providers Care Locum Tenens Name Role Phone Rowena Banks PA-C Primary Care Provider [phone] [phone] Reason for Visit * Reason Onset Date Comments Test Results Lab 02/05/2025 Encounter Details Date Type Department Care Team (Late st Contact Info) Description 02/05/2025 Telephone Hematology/Oncology [facility] [place] [address] [place] [phone] Marquis Christiansen MD [address] [place] [address] Test Results Lab Allergies Active Allergy Reactions [...] goal of less than 7.0% ([facility]) Use up to twice times a [...] Active Additional Information Patient taking differently:20 mg [id number], Reported on 01/30/2025 Esomeprazole Magnesium 40 MG [...] 100 Each 5 01/14/20 Active Calcium 1200 1744-3211 MG-UNIT Oral Tablet Chewable Take 1 Tablet [...] 11:30 AM EDT Immunization/Injec tion Hematology/Oncology Treatment, [place] [address] [facility] [place] [phone] Nimo, Chair 10 Hem Onc Scenery 200 [place] [address] 02/08/2025 9:45 AM EDT Pharmacy Pharmacy Hematology Oncology [facility] [address] [place] [address] [facility] Hem/Onc [address] [place] [address] 03/04/2025 9:00 AM EDT Office Visit Orthopaedics [facility] [address] [place] [phone] Javed Salas, [address] [place] [address] 04/01/2025 11:15 AM EDT Hospital Encounter ENDO OSSC, Endoscopy Room [facility] [address] [place] [address] Homar Padgett MD [address] [place] [address] 04/01/2025 11:15 AM EDT - 04/01/2025 12:15 PM EDT Surgery ENDO OSSC, Endoscopy Room [facility] [address] [place] [phone] Homar Padgett MD [address] [place] [address] COLONOSCOPY FLEXIBLE PROXIMAL DIAGNOSTIC 06/24/2025 8:30 AM EDT Office Visit Cardiology, [facility] [address] [place] [address] Homar Ware, PAMarimarC [address] [place] [address] Scheduled Procedures Name Priority Associated Diagnoses Date/Ti [...] Discussed due to patient's condition Care Teams Locum Tenens Relationship Specialty Start Date End Date Rowena Banks PA-C [address] [facility] [place] [address] PCP - General Physician Chief Meter Reader 06/01/22 documented as of this encounter
--- OUTSIDE RECORDS SUMMARY | 2025-04-07 11:40 | External Medical Summary | Summary of Care ---
Author Name Unknown Organization [facility] Address [address] [facility] [place] [address] Phone [phone] Care Team Providers Care Publishing Agent Name Role Phone Rowena Banks PA-C Primary Care Provider +1 [phone] Reason for Visit * Reason Onset Date Comments Test Results Lab 02/05/2025 Encounter Details Date Type Department Care Team (Late st Contact Info) Description 02/05/2025 Telephone Hematology/Oncology [facility] [place] [address] [place] [address] Marquis Christiansen MD [address] [place] [address] Test Results Lab Allergies Active Allergy Reactions [...] hemoglobin A1c goal of less than 7.0% ([facility]) Use up to twice times [...] Active Additional Information Patient taking differently:20 mg [id number], Reported on 01/30/2025 Esomeprazole Magnesium 40 MG [...] 100 Each 5 01/14/20 Active Calcium 1200 4813-5643 MG-UNIT Oral Tablet Chewable Take 1 Tablet [...] AM EDT Pharmacy Pharmacy Hematology Oncology [facility] [place] [address] [place] [address] [facility] [place], [facility] Hem/Onc [address] [place] [address] 03/04/2025 9:00 AM EDT Office Visit Orthopaedics [facility] [address] [place] [address] Javed Salas DO [address] [place] [address] 03/07/2025 10:00 AM EDT Laboratory Laboratory, [place] [facility] [phone] [facility] 226 [facility] [address] 03/08/2025 9:00 AM EDT Office Visit Hematology/Oncolog y [facility] [place] 200 [facility] [place] [address] Carlene Alcantara CRNP [facility] [address] 03/08/2025 9:30 AM EDT Immunization/Inject ion Hematology/Oncolog y Treatment, [place] [address] [place] [address] Nimo, Chair 10 Hem Onc Scene 200 [facility] [place] [address] 04/01/2025 11:15 AM EDT Hospital Encounter ENDO [facility], Endoscopy Room [facility] [address] [place] [phone] Homar Padgett MD [address] [place] [address] 04/01/2025 11:15 AM EDT - 04/01/2025 12:15 PM EDT Surgery ENDO [facility], Endoscopy Room [facility] [address] [place] [address] Homar Padgett MD [address] [place] [address] COLONOSCOPY FLEXIBLE PROXIMAL DIAGNOSTIC 06/24/2025 8:30 AM EDT Office Visit Cardiology, [facility] [address] [place] [address] Homar Ware PA-C [address] [place] [address] Scheduled Procedures Name Priority Associated Diagnoses Date/Ti [...] Discussed due to patient's condition Care Teams Publishing Agent Relationship Specialty Start Date End Date Rowena Banks PA-C [facility] [place] [address] PCP - General Physician Investment Director 06/01/22 documented as of this encounter
--- OUTSIDE RECORDS SUMMARY | 2025-04-07 11:40 | External Medical Summary | Summary of Care ---
Author Name Unknown Organization [facility] Address [address] [facility] [address] Phone [phone] Care Team Providers Care Mens Locker Room Attendant Name Role Phone Rowena Banks PA-C Primary Care Provider +1 -[phone] Reason for Visit * Reason Comments Medication Administration B12, Hold Xgev a Encounter Details Date Type Department Care Team (Late st Contact Info) Description 02/05/2025 11:30 AM EDT Immunization/In jection Hematology/Oncology Treatment, [address] [address] Nimo, Chair [address] [address] B12 deficiency* Allergies Active Allergy [...] Active Additional Information Patient taking differently:20 mg [id number], Reported on 01/30/2025 Esomeprazole Magnesium 40 MG [...] sugar). 100 Each 01/14/20 Active Calcium 1200 5042-0993 MG-UNIT Oral Tablet Chewable Take 1 Tablet [...] [facility] [address] [place] [address] [facility], [facility] Hem/Onc [address] [place] [address] 03/04/2025 9:00 AM EDT Office Visit Orthopaedics [facility] [address] [place] [address] Javed Salas DO [address] [place] [address] 03/07/2025 10:00 AM EDT Laboratory Laboratory, [facility] [address] [place] [phone] [facility] [address] [place] [address] 03/08/2025 9:00 AM EDT Office Visit Hematology/Oncolog y [facility] [place] 200 [facility] [place] [address] Carlene Alcantara CRNP [facility] [address] 03/08/2025 9:30 AM EDT Immunization/Inject ion Hematology/Oncolog y Treatment, [place] [facility] [address] Nimo, Chair 10 Hem Onc Scenery 200 [facility] [place] [address] 04/01/2025 11:15 AM EDT Hospital Encounter ENDO [facility], Endoscopy Room [facility] [address] [place] [address] Homar Padgett MD [address] [place] [address] 04/01/2025 11:15 AM EDT - 04/01/2025 12:15 PM EDT Surgery ENDO [facility], Endoscopy Room [facility] [address] [place] [phone] Homar Padgett MD [address] [place] [address] COLONOSCOPY FLEXIBLE PROXIMAL DIAGNOSTIC 06/24/2025 8:30 AM EDT Office Visit Cardiology, [facility] [address] [place] [address] Homar Ware, [place] [address] [place] [address] Scheduled Procedures Name Priority Associated Diagnoses Date/Ti [...] Discussed due to patient's condition Care Teams Mens Locker Room Attendant Relationship Specialty Start Date End Date Rowena Banks PA-C [address] [place] [address] PCP - General Physician Sawyer Helper 06/01/22 documented as of this encounter
--- OUTSIDE RECORDS SUMMARY | 2025-04-07 11:40 | External Medical Summary | Summary of Care ---
Author Name Unknown Organization [facility] Address [address] [facility] [place] [address] Phone [phone] Care Team Providers Care Tourist Information Officer Name Role Phone Rowena Banks PA-C Primary Care Provider [phone] [phone] Reason for Visit * Reason Onset Date Comments Test Results Lab 02/05/2025 Encounter Details Date Type Department Care Team (Late st Contact Info) Description 02/05/2025 Telephone Hematology/Oncology [facility] [place] [address] [place] [phone] Marquis Christiansen MD [address] [place] [address] Test Results Lab Allergies Active Allergy Reactions [...] hemoglobin A1c goal of less than 7.0% ([facility]) Use up to twice times a [...] Active Additional Information Patient taking differently:20 mg [id number], Reported on 01/30/2025 Esomeprazole Magnesium 40 MG [...] 100 Each 5 01/14/20 Active Calcium 1200 7270-7763 MG-UNIT Oral Tablet Chewable Take 1 Tablet [...] 11:30 AM EDT Immunization/Injec tion Hematology/Oncology Treatment, [place] [address] [place], [place] [phone] Nimo, Chair 10 Hem Onc Scenery [address] [place] [address] 02/08/2025 9:45 AM EDT Pharmacy Pharmacy Hematology Oncology [facility] [address] [place] [address] [facility] Hem/Onc [address] [place] [address] 03/04/2025 9:00 AM EDT Office Visit Orthopaedics [facility] [address] [place] [address] Javed Salas DO [address] [place] [address] 04/01/2025 11:15 AM EDT Hospital Encounter ENDO [facility], Endoscopy Room [facility] [address] [place] [address] Homar Padgett MD [address] [place] [address] 04/01/2025 11:15 AM EDT - 04/01/2025 12:15 PM EDT Surgery ENDO [facility], Endoscopy Room [facility] [address] [place] [phone] Homar Padgett MD [address] [place] [address] COLONOSCOPY FLEXIBLE PROXIMAL DIAGNOSTIC 06/24/2025 8:30 AM EDT Office Visit Cardiology, [facility] [address] [place] [address] Homar Ware PA-C [address] [place] [address] Scheduled Procedures Name Priority Associated Diagnoses Date/Ti [...] 12/24/2024, Additional history exists Colonoscopy 02/28/2028 02/27/2018, 040 [...] Discussed due to patient's condition Care Teams Tourist Information Officer Relationship Specialty Start Date End Date Rowena Banks PA-C [address] [place] [address] PCP - General Physician Mixing Picker Tender 06/01/22 documented as of this encounter
--- OUTSIDE RECORDS SUMMARY | 2025-04-07 11:41 | External Medical Summary | Summary of Care ---
Author Name Unknown Organization [facility] Address [address] [facility] [place] [address] Phone [phone] Care Team Providers Care Engineer Internship Name Role Phone Rowena Banks PA-C Primary Care Provider [phone] Reason for Visit * Reason Onset Date Comments Precert Future 01/24/2025 xeloda Encounter Details Date Type Department Care Team (Late st Contact Info) Description 01/24/2025 Telephone Hematology/Oncology Treatment, [place] [address] [facility] [place] [address] Marquis Christiansen MD [address] [place] [address] Precert Future (xeloda) Allergies Active Allergy Reactions [...] as of this encounter (statuses as of 02/04/2025) Medications COMBIGAN 0.2-0.5 % ophthalmic solution Instill [...] goal of less than 7.0% ([facility]) Use up to twice times a day [...] on 01/30/2025 Gabapentin 100 MG Oral Capsule (Neurontin)Shraee cations:Neuropa thy Take 2 capsules by mouth [...] Active Additional Information Patient taking differently:20 mg [id number], Reported on 01/30/2025 Esomeprazole Magnesium 40 MG [...] 100 Each 5 025 Active Calcium 1200 2426-0384 MG-UNIT Oral Tablet Chewable Take 1 Tablet [...] as of this encounter (statuses as of 02/04/2025) Active Problems Problem Noted Date Diagnosed Date [...] as of this encounter (statuses as of 02/04/2025) Resolved Problems Problem Noted Date Diagnosed Date [...] as of this encounter (statuses as of 02/04/2025) Immunizations Name Administration Dates Next Due COVID-19 [...] encounter Miscellaneous Notes * Telephone Encounter - Estela Whitlock RN [...] Order received for xeloda. Forwarded order to [facility]. Education 01/30/25. Hep B labs 02/07/24. documented in this encounter Plan of Treatment Upcoming Encounters Date Type Department Care Team (Latest Contact Info) Description 02/04/2025 12:00 PM EDT Laboratory Laboratory, [place] 226 [facility] [place] [phone] [facility] 226 [place] [address] 02/05/2025 11:30 AM EDT Immunization/Inject ion Hematology/Oncolog y Treatment, [place] [address] [place] [address] Nimo, Chair 10 Hem Onc Scenery 200 [facility] [address] 02/08/2025 9:45 AM EDT Pharmacy Pharmacy Hematology Oncology [place] [address] [place] [address] [facility] [place] Hem/Onc [address] [place] [address] 03/04/2025 9:00 AM EDT Office Visit Orthopaedics [facility] [address] [place] [address] Javed Salas DO [address] [place] [address] 04/01/2025 11:15 AM EDT Hospital Encounter ENDO [facility], Endoscopy Room [facility] [address] [place] [address] Homar Padgett MD [address] [place] [address] 04/01/2025 11:15 AM EDT - 04/01/2025 12:15 PM EDT Surgery ENDO [facility], Endoscopy Room [facility] [address] [place] [address] Homar Padgett MD [address] [place] [address] COLONOSCOPY FLEXIBLE PROXIMAL DIAGNOSTIC 06/24/2025 8:30 AM EDT Office Visit Cardiology, [facility] [address] [place] [address] Homar Ware, PAMerlene [address] [place] [address] Scheduled Procedures Name Priority Associated Diagnoses Date/Ti [...] PCV21) 10/05/2024 10/05/2019, 08/17/2018 HbA1c 02/20/2025 08/22/2024, 02/2 04/2024, 08/04/2023, Additional history exists Depression Monitoring 08/20/2025 08/20/2024 Diabetic Eye Exam 11/21/2025 08/12/2016, 04/17/2013 Postponed from 08/12/2017 (Patient Declined After Education) GFR 01/07/2026 01/07/2025, 0 01/2025, 12/10/2024, Additional history exists Colonoscopy 02/28/2028 02/27/2018, 0 [...] Discussed due to patient's condition Care Teams Engineer Internship Relationship Specialty Start Date End Date Rowena Banks PA-C [address] [place] [address] PCP - General Physician Wood Carving Lathe Operator 06/01/22 documented as of this encounter
--- OUTSIDE RECORDS SUMMARY | 2025-04-07 11:41 | External Medical Summary ---
Author Name Unknown Address Unknown Organization K01:[facility] - [facility][note 3] [address] [facility] [address] [place] [address] Laboratory Report Ordering Provider Test Date Status DINESH MOBLEY 02/04/2025 11:50:19 Final Observation Date Value Abnormality Reference (Units ) Status WBC, Total 02/04/2025 11:50:19 3.91 Below low normal 4.00-10.80 (K/uL) Final RBC 02/04/2025 11:50:19 2.50 3.85-5.15 (M/uL) Final Hemoglobin 02/04/2025 11:50:19 9.0 Below low normal 12.0-15.3 (g/dL) Final HCT 02/04/2025 11:50:19 28.5 Below low normal 36.0-45.2 (%) Final MCV 02/04/2025 11:50:19 114.0 81.5-97.5 (fL) Final MCH 02/04/2025 11:50:19 36.0 27.0-34.0 (pg) Final MCHC 02/04/2025 11:50:19 31.6 32.0-36.0 (g/dL) Final RDW 02/04/2025 11:50:19 16.3 11.5-15.5 (%) Final Platelets 02/04/2025 11:50:19 174 140-400 (K/uL) Final MPV 02/04/2025 11:50:19 11.0 6.6-11.1 (fL) Final Nucleated erythrocytes/100 leukocytes [Ratio] in Blood by Automated count 02/04/2025 11:50:19 1 Above high normal <=0 (/100 WBCs) Final Performing Location [facility] - [address] [place] [address]
--- OUTSIDE RECORDS SUMMARY | 2025-04-07 11:41 | External Medical Summary ---
Author Name Unknown Address Unknown Organization K01:[facility] - [address] [facility] [place] [address] Laboratory Report Ordering Provider Test Date Status DINESH MOBLEY 02/04/2025 11:50:19 Final Observation Date Value Abnormality Reference (Units ) Status BUN 02/04/2025 11:50:19 12 6-20 (mg/dL) Final Creatinine 02/04/2025 11:50:19 0.8 0.5-1.0 (mg/dL) Final Glomerular filtration rate/1.73 sq M.predicted [Volume Rate/Area] in Serum, Plasma or Blood by Creatinine-based formula (CKD-EPI) 02/04/2025 11:50:19 77 >=60 (mL/min) Final eGFR is calculated based on the CKD-EPI 2020 equation. Sodium 02/04/2025 11:50:19 141 135-146 (m mol/L) Final Potassium 02/04/2025 11:50:19 4.5 3.5-5.1 (m mol/L) Final Cl 02/04/2025 11:50:19 107 98-107 (mm ol/L) Final CO2 02/04/2025 11:50:19 20 Below low normal 22- 32 (mmol/L) Final Anion gap 02/04/2025 11:50:19 14 7-15 (mmol /L) Final Glucose 02/04/2025 11:50:19 203 Above high normal 70 -120 (mg/dL) Final Albumin 02/04/2025 11:50:19 3.9 3.8-5.0 (g /dL) Final AST (Aspartate aminotransferase) 02/04/2025 11:50:19 45 Above high normal 10-35 (U/L) Final Alk Phos 02/04/2025 11:50:19 538 Above high normal 35 -130 (U/L) Final Bilirubin, Total 02/04/2025 11:50:19 0.5 <=1 .2 (mg/dL) Final Calcium 02/04/2025 11:50:19 7.8 Below low normal 8.4 -10.2 (mg/dL) Final Protein 02/04/2025 11:50:19 6.3 6.0-8.3 (g /dL) Final ALT (Alanine aminotransferase) 02/04/2025 11:50:19 25 10-35 (U/L) Chaarn bridges Performing Location [facility] - [address] [facility] [address]
--- OUTSIDE RECORDS SUMMARY | 2025-04-07 11:41 | External Medical Summary | Summary of Care ---
Author Name Unknown Organization [facility] Address [address] [facility] [place] [address] Phone [phone] Care Team Providers Care Shovel Loader Operator Name Role Phone Rowena Banks PA-C Primary Care Provider +1 -[phone] Reason for Visit * Reason Onset Date Comments Precert Future 01/24/2025 xeloda Encounter Details Date Type Department Care Team (Late st Contact Info) Description 01/24/2025 Telephone Hematology/Oncology Treatment, [place] [address] [place] [address] Marquis Christiansen MD [address] [place] [address] Precert Future (xeloda) Allergies Active Allergy Reactions [...] Active Additional Information Patient taking differently:20 mg [id number], Reported on 01/30/2025 Esomeprazole Magnesium 40 MG [...] 100 Each 5 025 Active Calcium 1200 2416-5670 MG-UNIT Oral Tablet Chewable Take 1 Tablet [...] encounter Miscellaneous Notes * Telephone Encounter - Loi Bess OSA [...] Order received for xeloda. Forwarded order to [facility]. Education 01/30/25. Hep B labs 02/07/24. documented in this encounter Plan of Treatment Upcoming Encounters Date Type Department Care Team (Latest Contact Info) Description 02/04/2025 12:00 PM EDT Laboratory Laboratory, [place] [facility] [address] [place] [address] [place], [facility] [address] [place] [address] 02/05/2025 11:30 AM EDT Immunization/Inject ion Hematology/Oncolog y Treatment, [place] [address] [place] [address] Nimo, Chair 10 Hem Onc Scenery [address] [place] [address] 02/08/2025 9:45 AM EDT Pharmacy Pharmacy Hematology Oncology [facility] [place] [address] [place] [address] [facility] [place], [facility] Hem/Onc [address] [place] [address] 03/04/2025 9:00 AM EDT Office Visit Orthopaedics [facility] [address] [place] [address] Javed Salas, [address] [place] [phone] 04/01/2025 11:15 AM EDT Hospital Encounter ENDO [facility], Endoscopy Room [facility] [address] [place] [address] Homar Padgett MD [address] [place] [address] 04/01/2025 11:15 AM EDT - 04/01/2025 12:15 PM EDT Surgery ENDO [facility], Endoscopy Room [facility] [address] [place] [address] Homar Padgett MD [address] [place] [address] COLONOSCOPY FLEXIBLE PROXIMAL DIAGNOSTIC 06/24/2025 8:30 AM EDT Office Visit Cardiology, [facility] [address] [place] [address] Homar Ware, PA-C [address] [place] [address] Scheduled Procedures Name Priority Associated Diagnoses Date/Ti [...] (Patient Declined After Education) GFR 01/07/2026 01/07/2025, 02/0 01/2025, 12/10/2024, Additional history exists Colonoscopy 02/28/2028 02/27/2018, 04/0 [...] Discussed due to patient's condition Care Teams Shovel Loader Operator Relationship Specialty Start Date End Date Rowena Banks PA-C [address] [place] [address] PCP - General Physician Spooling Supervisor 06/01/22 documented as of this encounter
--- OUTSIDE RECORDS SUMMARY | 2025-04-07 11:41 | External Medical Summary | Summary of Care ---
Author Name Unknown Organization [facility] Address [address] [facility] [place] [address] Phone [phone] Care Team Providers Care Commercial Management Accountant Name Role Phone Rowena Banks PA-C Primary Care Provider [phone] [phone] Reason for Visit * Reason Comments Constipation Pt reports that she moves her bowels every 5 days. Encounter Details Date Type Department Care Team (Late st Contact Info) Description 01/30/2025 2:00 PM EDT Office Visit Gastroenterology, [facility] [address] [facility] [place] [address] Rosendo Alcantara CRNP [address] [facility] [place] [address] Chronic constipation* Allergies Active Allergy Reactions Criticality Noted Date [...] as of this encounter (statuses as of 02/02/2025) Medications ROME 0.2-0.5 % ophthalmic solution Instill [...] Active Additional Information Patient taking differently:20 mg [id number], Reported on 01/30/2025 Esomeprazole Magnesium 40 MG [...] sugar). 100 Each 01/14/20 Active Calcium 1200 0235-7113 MG-UNIT Oral Tablet Chewable Take 1 Tablet [...] before breakfast. 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 Apply topically to hands and feet twice daily 228 g 3 5 3:28 PM EDT 01/29/20 025 Discontin ued(Medic ation List Clean Up) Hospital, Clinic, or Other Facility Administered Medication Ordered Dose Route Frequency Start Date End Date Status albuterol sulfate (PROVENTIL) (2.5 MG/3ML) 0.083% inhalation solution 2.5 mgIndications:Restrictive lung disease,SOB (shortness of breath) 2.5 mg NEBULIZER Q4H PRN 11/07/2017 Act roe documented as of this encounter (statuses as of 02/02/2025) Active Problems Problem Noted Date Diagnosed Date [...] as of this encounter (statuses as of 02/02/2025) Resolved Problems Problem Noted Date Diagnosed Date [...] as of this encounter (statuses as of 02/02/2025) Immunizations Name Administration Dates Next Due COVID-19 [...] Sign Reading Time Taken Comments Blood Pressure 138/78 01/30/2025 2:16 PM EDT Pulse 81 01/30/2025 2:16 PM EDT Temperature 36.5 °C (97.7 °F) 01/30/2025 2:16 PM ED T Respiratory Rate - - Oxygen Saturation - - Inhaled Oxygen Concentration - - Weight 100.3 kg (221 lb 3.2 oz) 01/30/2025 2:16 PM EDT Height - - Body Mass Index 37.97 01/07/2025 12:46 PM EST documented in this encounter Progress Notes * Rosendo AlcantaraPAULINO - 01/30/2025 1:56 PM EDT CC: Constipation HPI: Recall that Ms. Sarah Burgos is a 69 yr old female pt of Dr. Jocelyn oropeza a hx of HLD, HTN, obesity, depression, fibromyalgia, IBS-C, left breast cancer 2020 S/P bilat mastectomies, chemo and radiation, GERD. She presents today for Constipation which has been intermittent, much worse in the past 4-6 weeks. She asks to restart Linzess. Current GI Symptoms: Has to take a laxative to pass BMs, but Miralax/fiber not very effective. Linzess worked will in the past. Get abd bloating, diffuse discomfort when hasn't passed a BM for a few days. Current GI Meds: Esomeprazole 40mg daily Famotidine 20mg HS Ondansetron 8mg prn nausea. Currently chemo on hold, plans are to start Xeloda soon. CTAP January 2024: 1. New sclerotic osseous lesions suggesting osseous metastatic disease. 2. Bilateral lung nodules are indeterminate. Inflammatory and neoplastic process are in the differential. Attention recommended on follow-up CT. 3. Hepatosplenomegaly with hepatic steatosis. 4. Additional findings described above. EGD 2019: Z-line irregular. Biopsied.Gastritis. Biopsied.Normal examined duodenum. Biopsied Colonoscopy 2018: Diverticulosis in the sigmoid colon and in the descendingcolon.The examined portion of the ileum was normal. Internal hemorrhoids. The examination was otherwise normal on direct andretroflexion views.Biopsies were taken with a cold forceps from the entirecolon for evaluation of microscopic colitis. EXAM: BP 138/78 | Pulse 81 | Temp 36.5 °C (97.7 °F) | Wt 100.3 kg (221 lb 3.2 oz) | BMI 37.97 kg/m² | BSA 2.13 m² GENERAL: 69 year old female well developed and well nourished in no acute distress SKIN: no rashes, ulcers, or spider angiomata HEENT: normocephalic, sclera clear, pharynx normal NECK: supple, no lymphadenopathy, no masses or thyroid enlargement LUNGS: clear to auscultation anterior and posterior HEART: regular rate & rhythm, no murmurs and no gallops ABDOMEN: normo-active bowel sounds, soft, non-tender, non-distended no masses, no hepatosplenomegaly, no rebound or guarding, no bruits EXTREMITIES: no palmar erythema, no edema, no skin discoloration, no clubbing, no cyanosis NEURO: no lateralizing findings, Sensory/Motor grossly normal IMPRESSION/RECOMMENDATIONS: 69 year old female with Chronic constipation (Primary) - Linzess 290 MCG Oral Capsule (linaCLOtide); Take 1 Capsule by mouth daily before breakfast. Recheck yearly and as needed. I spent a total of 30 minutes on the date of service in review of patient's record, and previously obtained information in person and appropriate medical visit, discussion and education of plan, withpatient and/or caregiver, placing orders for tests/referral/procedures as medically necessary and documentation of pertinent clinical information in patient's medical records for their visit today. Thank you for the opportunity to be involved in the care of this patient. PAULINO Guevara documented in this encounter Nursing Notes * Mary Velázquez LPN - 01/30/2025 2:15 PM EDT Chief Complaint Patient presents with Constipation Pt reports that she moves her bowels every 5 days. documented in this encounter Plan of Treatment Upcoming Encounters Date Type Department Care Team (Latest Contact Info) Description 02/04/2025 12:00 PM EDT Laboratory Laboratory, Brigid Cruz [address] [place] [address] Mavis Rainey [address] [place] [id number] 02/05/2025 11:30 AM EDT Immunization/Inject ion Hematology/Oncolog y Treatment, [place] [address] [place] [address] Park, Chair 10 Hem Onc Scenery [address] [place] [address] 02/08/2025 9:45 AM EDT Pharmacy Pharmacy Hematology Oncology [facility] [address] [place] [address] [facility], [facility] Hem/Onc [address] [place] [address] 03/04/2025 9:00 AM EDT Office Visit Orthopaedics [facility] [address] [place] [phone] Javed Salas, [address] [place] [address] 04/01/2025 11:15 AM EDT Hospital Encounter ENDO [facility], Endoscopy Room [facility] [address] [place] [address] Homar Padgett MD [address] [place] [address] 04/01/2025 11:15 AM EDT - 04/01/2025 12:15 PM EDT Surgery ENDO [facility], Endoscopy Room [facility] [address] [place] [phone] Homar Padgett MD [address] [place] [address] COLONOSCOPY FLEXIBLE PROXIMAL DIAGNOSTIC 06/24/2025 8:30 AM EDT Office Visit Cardiology, [facility] [address] [place] [address] Homar Ware PA-C [address] [place] [address] Scheduled Procedures Name Priority Associated Diagnoses Date/Ti [...] (Patient Declined After Education) GFR 01/07/2026 01/07/2025, 01/2025, 12/10/2024, Additional history exists Colonoscopy 02/28/2028 [...] as of this encounter Visit Diagnoses Diagnosis Chronic constipation- Primary Unspecified constipation Gastroesophageal reflux disease, unspecified whether esophagitis present [...] Discussed due to patient's condition Care Teams Commercial Management Accountant Relationship Specialty Start Date End Date Rowena Banks PA-C [address] [place] [address] PCP - General Physician Phlebotomist Medical Lab Assistant 06/01/22 documented as of this encounter"
--- OUTSIDE RECORDS SUMMARY | 2025-04-07 11:41 | External Medical Summary | Summary of Care ---
Author Name Unknown Organization [facility] Address [address] [facility] [place] [address] Phone [phone] Care Team Providers Care Return To Vendor Name Role Phone Rowena Banks PA-C Primary Care Provider [phone] [phone] Reason for Visit * Reason Onset Date Comments Test Results Lab 02/05/2025 Encounter Details Date Type Department Care Team (Late st Contact Info) Description 02/05/2025 Telephone Hematology/Oncology [facility] [place] [address] [place] [phone] Marquis Christiansen MD [address] [place] [address] Test Results Lab Allergies Active Allergy Reactions [...] hemoglobin A1c goal of less than 7.0% ([facility]) Use up to twice times [...] Active Additional Information Patient taking differently:20 mg [id number], Reported on 01/30/2025 Esomeprazole Magnesium 40 MG [...] 100 Each 5 01/14/20 Active Calcium 1200 8207-9233 MG-UNIT Oral Tablet Chewable Take 1 Tablet [...] 11:30 AM EDT Immunization/Injec tion Hematology/Oncology Treatment, [place] [address] [place] [address] Nimo, Chair 10 Hem Onc Scenery [address] [facility] [address] 02/08/2025 9:45 AM EDT Pharmacy Pharmacy Hematology Oncology [address] [address] [facility] Hem/Onc [address] [place] [address] 03/04/2025 9:00 AM EDT Office Visit Orthopaedics [facility] [address] [place] [phone] Javed Salas DO [address] [place] [address] 04/01/2025 11:15 AM EDT Hospital Encounter ENDO [facility], Endoscopy Room [facility] [address] [place] [address] Homar Padgett MD [address] [place] [address] 04/01/2025 11:15 AM EDT - 04/01/2025 12:15 PM EDT Surgery ENDO [facility], Endoscopy Room [facility] [address] [place] [address] Homar Padgett MD [address] [place] [address] COLONOSCOPY FLEXIBLE PROXIMAL DIAGNOSTIC 06/24/2025 8:30 AM EDT Office Visit Cardiology, [facility] [address] [place] [address] Homar Ware, PAMarimarC [address] [place] [address] Scheduled Procedures Name Priority Associated Diagnoses Date/Ti [...] Discussed due to patient's condition Care Teams Return To Vendor Relationship Specialty Start Date End Date Rowena Banks PA-C [address] [place] [address] PCP - General Physician Job Putter Up And Ticket Preparer 06/01/22 documented as of this encounter
--- OUTSIDE RECORDS SUMMARY | 2025-04-07 11:41 | External Medical Summary | Summary of Care ---
Author Name Unknown Organization [facility] Address [address] [facility] [place] [address] Phone [phone] Care Team Providers Care Fitness Instructor Name Role Phone Rowena Banks PA-C Primary Care Provider [phone] [phone] Reason for Visit * Reason Onset Date Comments Test Results Lab 02/05/2025 Encounter Details Date Type Department Care Team (Late st Contact Info) Description 02/05/2025 Telephone Hematology/Oncology [facility] [place] [address] [place] [phone] Marquis Christiansen MD [address] [place] [address] Test Results Lab Allergies Active Allergy Reactions [...] Active Additional Information Patient taking differently:20 mg [id number], Reported on 01/30/2025 Esomeprazole Magnesium 40 MG [...] 100 Each 5 01/14/20 Active Calcium 1200 5223-5280 MG-UNIT Oral Tablet Chewable Take 1 Tablet [...] 11:30 AM EDT Immunization/Injec tion Hematology/Oncology Treatment, [place] [address] [place], [place] [address] Nimo, Chair 10 Hem Onc Scenery [address] [place] [address] 02/08/2025 9:45 AM EDT Pharmacy Pharmacy Hematology Oncology [facility] [address] [place] [address] [facility], [facility] Hem/Onc [address] [place] [address] 03/04/2025 9:00 AM EDT Office Visit Orthopaedics [facility] [address] [place] [phone] Javed Salas DO [address] [place] [address] 04/01/2025 11:15 AM EDT Hospital Encounter ENDO OSSC, Endoscopy Room [facility] [address] [place] [address] Homar Padgett MD [address] [place] [address] 04/01/2025 11:15 AM EDT - 04/01/2025 12:15 PM EDT Surgery ENDO [facility], Endoscopy Room [facility] [address] [place] [phone] Homar Padgett MD [address] [place] [address] COLONOSCOPY FLEXIBLE PROXIMAL DIAGNOSTIC 06/24/2025 8:30 AM EDT Office Visit Cardiology, [facility] [address] [place] [address] Homar Ware PA-C [address] [place] [address] Scheduled Procedures Name Priority Associated Diagnoses Date/Ti [...] Discussed due to patient's condition Care Teams Fitness Instructor Relationship Specialty Start Date End Date Rowena Banks PA-C [address] [place] [address] PCP - General Physician Cheese Factory Worker 06/01/22 documented as of this encounter
--- OUTSIDE RECORDS SUMMARY | 2025-04-07 11:41 | External Medical Summary ---
Author Name Unknown Address Unknown Organization K01:LABORATORY [facility] - [address] [facility] [place] [address] Laboratory Report Ordering Provider Test Date Status DINESH MOBLEY 02/04/2025 11:50:19 Final Observation Date Value Abnormality Reference (Units ) Status SYNC LEUKOCYTES IN BLOOD BY AUTOMATED COUNT 02/04/2025 11:50:19 3.91 Below low normal 4.00-10.80 (K/uL) Final Segs 02/04/2025 11:50:19 69.3 40.0-75.0 (%) Final Lymphs % 02/04/2025 11:50:19 15.9 Below low normal 18.0-42.0 (%) Final Monos 02/04/2025 11:50:19 9.5 1.0-11.0 (%) Final Eosinophils 02/04/2025 11:50:19 2.8 0.0-6.0 (%) Final Basos 02/04/2025 11:50:19 1.5 0.0-2.0 (%) Final Immature Granulocyte, Percent 02/04/2025 11:50:19 1.0 0.0-2.0 (%) Final Absolute Segs 02/04/2025 11:50:19 2.71 1.80-7.70 (K/uL) Final Lymphs, absolute 02/04/2025 11:50:19 0.62 Below low normal 1.00-4.80 (K/ul) Final Monos, Abs 02/04/2025 11:50:19 0.37 0.00-1.10 (K/uL) Final Eos, Abs 02/04/2025 11:50:19 0.11 0.00-0.70 (K/uL) Final Basos, Abs 02/04/2025 11:50:19 0.06 0.00-0.20 (K/uL) Final Immature Granulocytes, Number 02/04/2025 11:50:19 0.04 0.00-0.20 (K/uL) Final Performing Location LABORATORY [facility] - [facility] [address]. [facility] [address]
--- OUTSIDE RECORDS SUMMARY | 2025-04-07 11:41 | External Medical Summary | Summary of Care ---
Author Name Unknown Organization [facility] Address [address] [facility] [place] [address] Phone [phone] Care Team Providers Care Ward Nurse Name Role Phone Rowena Banks PA-C Primary Care Provider [phone] [phone] Reason for Visit * Reason Comments Outpatient Testing Encounter Details Date Type Department Care Team (Late st Contact Info) Description 02/04/2025 12:00 PM EDT Laboratory [facility], [place] [facility] [address] [place] [phone] [facility] [address] [place] [address] Carcinoma of left breast metastatic to axillary [...] Active Additional Information Patient taking differently:20 mg [id number], Reported on 01/30/2025 Esomeprazole Magnesium 40 MG [...] BY MOUTH EVERY MORNING 90 Tablet 01/09/20 Active Losartan Potassium 25 MG Oral Tablet [...] sugar). 100 Each 01/14/20 Active Calcium 1200 3721-8632 MG-UNIT Oral Tablet Chewable Take 1 Tablet [...] 11:30 AM EDT Immunization/Injec tion Hematology/Oncology Treatment, [place] [address] [place] [address] Nimo, Chair 10 Hem Onc [facility] [address] [facility] [address] 02/08/2025 9:45 AM EDT Pharmacy Pharmacy Hematology Oncology [address] [address] [facility] Hem/Onc [address] [place] [address] 03/04/2025 9:00 AM EDT Office Visit Orthopaedics [facility] [address] [place] [address] Javed Salas DO [address] [place] [address] 04/01/2025 11:15 AM EDT Hospital Encounter ENDO OSSC, Endoscopy Room [facility] [address] [place] [phone] Homar Padgett MD [address] [place] [address] 04/01/2025 11:15 AM EDT - 04/01/2025 12:15 PM EDT Surgery ENDO [facility], Endoscopy Room [facility] [address] [place] [phone] Homar Padgett MD [address] [place] [address] COLONOSCOPY FLEXIBLE PROXIMAL DIAGNOSTIC 06/24/2025 8:30 AM EDT Office Visit Cardiology, [facility] [address] [place] [address] Homar Ware PA-C [address] [place] [address] Pending Results Name Type Priority Associated Diagnoses Date /Time CBC WITH WBC DIFFERENTIAL Lab STAT 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) History of breast cancer Metastasis to bone (HCC) Malignant neoplasm of upper-outer quadrant of left breast in female, estrogen receptor positive (HCC) 02/04/2025 11:50 AM EDT COMPREHENSIVE METABOLIC PANEL Lab STAT 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) History of breast cancer Metastasis to bone (HCC) Malignant neoplasm of upper-outer quadrant of left breast in female, estrogen receptor positive (HCC) 02/04/2025 11:50 AM EDT PHOSPHORUS Lab Routine 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) History of breast cancer Metastasis to bone (HCC) Malignant neoplasm of upper-outer quadrant of left breast in female, estrogen receptor positive (HCC) 02/04/2025 11:50 AM EDT CBC Lab STAT 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) History of breast cancer Metastasis to bone (HCC) Malignant neoplasm of upper-outer quadrant of left breast in female, estrogen receptor positive (HCC) 02/04/2025 11:50 AM EDT DIFFERENTIAL, AUTOMATED Lab STAT 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
--- OUTSIDE RECORDS SUMMARY | 2025-04-07 11:41 | External Medical Summary ---
Author Name Unknown Address Unknown Organization K01:LABORATORY [facility] - [address] [place] [address] Laboratory Report Ordering Provider Test Date Status DINESH MOBLEY 02/04/2025 11:50:19 Final Observation Date Value Abnormality Reference (Units ) Status Phosphate 02/04/2025 11:50:19 2.5 2.5-4.8 (m g/dL) Final Performing Location LABORATORY [facility] - [address] [place] [address]
--- OUTSIDE RECORDS SUMMARY | 2025-04-07 11:42 | External Medical Summary | Summary of Care ---
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 Silvino Referring Provider Role: Specialist Specialty: Heme/Onc Reason for Referral: Oral Chemo Has consent been obtained for new oral chemo agent(s)? Yes Comments ORAL CHEMOTHERAPY MTDM MONITORING REFERRAL This patient is being referred to the Oral Chemotherapy Clinic for medication co-management. The planned duration of treatment is: Until disease progression/toxicity Please start oral chemotherapy: Once therapy has arrived from specialty pharmacy Oral Chemotherapy Monitoring will continue until one of the following discharge criteria has been met. The provider will be informed if any of these occur. 1. Disease progression. 2. Patient non-compliance 3. Compliance and tolerating treatment well without major toxicities with routine provider follow up. 4. Completion of therapy. Additional Comments: N/A By my signature, I understand that my patient will have their medication therapy managed by the [facility]ication [facility] ([facility]) per established policies, procedures, and protocols. I also certify that this referral may serve as an initiation of service for the management of drug therapy in the above noted patient. [facility] providers will be responsible for scheduling patient visits, obtaining appropriate laboratory studies, and adjusting medication management therapy per patient's need, in addition to those roles spelled out in the clinic policy, procedures, and drug management protocols. I understand that the service provided by the [facility] Clinic is voluntary and have informed patient that they can refuse the service at their discretion. I am aware that the [facility] Clinic will provide me with a copy of the patient encounter via my [employer]. I authorize the [facility] Clinic to carry out these activities on my behalf. I consider this program to be a necessary part of the patient's medical care. 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 120 Capsule 5 10/08/20 24 Active Additional Information Patient taking differently: 200 mg Oral Daily(AM), Take 2 capsules by mouth in the morning, Reported on 01/07/2025 Famotidine 20 MG Oral Tablet (Pepcid) Take 1 Tablet by mouth in the morning and 1 Tablet before bedtime. 180 Tablet 3 10/11/20 24 Active Additional Information Patient taking differently:20 mg [id number], Reported on 01/24/2025 Esomeprazole Magnesium 40 MG Oral Capsule Delayed [...] Nausea. 30 Tablet 3 10/29/20 24 Active Ondansetron HCl 8 MG Oral Tablet (Zofran)Indicati [...] Additional Information Patient not taking.Reported on 01/24/2025 Fluticasone Propionate 50 MCG/ACT Nasal Suspension (Flonase)Indicat [...] 100 Each 01/14/20 25 Active Calcium 1200 5854-9613 MG-UNIT Oral Tablet Chewable Take 1 Tablet by mouth in the morning. 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 Apply topically to hands and feet twice daily 228 g 01/29/20 25 Active Capecitabine 150 MG Oral Tablet (Xeloda)Indicati ons:Carcinoma [...] not crush or cut.. 28 Tablet 5 01/29/20 25 Active Capecitabine 500 MG Oral Tablet (Xeloda)Indicati ons:Carcinoma [...] not crush or cut.. 84 Tablet 5 01/29/20 25 Active Hospital, Clinic, or Other Facility Administered Medication Ordered Dose Route Frequency Start Date End Date Status albuterol sulfate (PROVENTIL) (2.5 MG/3ML) 0.083% inhalation solution 2.5 mgIndications:Restrictive lung disease,SOB (shortness of breath) 2.5 mg NEBULIZER Q4H PRN 11/07/2017 Act roe documented as of this encounter (statuses as of 01/28/2025) Active Problems Problem Noted Date Diagnosed Date [...] as of this encounter (statuses as of 01/28/2025) Resolved Problems Problem Noted Date Diagnosed Date [...] (12/09/2011): quit 12/03/87 MORBID OBESITY, BMI= 42.43 9/07/0107/29/2011 04/05/2017 LOCAL ALLERGIC REACTION, RIGHT FOOT 05/04/2011 [...] as of this encounter (statuses as of 01/28/2025) Immunizations Name Administration Dates Next Due COVID-19 [...] as of this encounter Miscellaneous Notes * Addendum Note - Clint Taveras RPh - 01/28/2025 1:32 PM EDTAddended by: CLINT TAVERAS on: 01/28/2025 01:32 PM Modules accepted: Orders documented in this encounter Plan of Treatment Upcoming Encounters Date Type Department Care Team (Latest Contact Info) Description 01/30/2025 11:00 AM EDT Pt Ed by Nurse Hematology/Oncolog y Patrick Suero [place] [address] [place], [place] [address] [place], Nurse Hem Onc Scenery [address] [place] [address] 01/30/2025 2:00 PM EDT Office Visit Gastroenterology, [facility] [address] [place] [address] Rosendo Alcantara CRNP [address] [place] [address] 01/31/2025 9:45 AM EDT Pharmacy Pharmacy Hematology Oncology [facility] [address] [place] [address] [facility] Hem/Onc [facility] [place] [place] [address] 02/04/2025 12:00 PM EDT Laboratory [facility], [facility] [address] [place] [phone] [place], [facility] [address] [place] [address] 02/05/2025 11:30 AM EDT Immunization/Inject ion Hematology/Oncolog y Treatment, [place] [address] [place] [phone] Nimo, Chair 10 Hem Onc Scenery [address] [place] [address] 03/04/2025 9:00 AM EDT Office Visit Orthopaedics [facility] [address] [place] [address] Javed Salas, [address] [place] [address] 04/01/2025 11:00 AM EDT Hospital Encounter ENDO [facility], Endoscopy Room [facility] [address] [place] [address] Homar Padgett MD [address] [place] [address] 04/01/2025 11:00 AM EDT - 04/01/2025 12:00 PM EDT Surgery ENDO [facility], Endoscopy Room [facility] [address] [place] [phone] Homar Padgett MD [address] [place] [address] COLONOSCOPY FLEXIBLE PROXIMAL DIAGNOSTIC 06/24/2025 8:30 AM EDT Office Visit Cardiology, [facility] [address] [place] [address] Homar Ware PA-C [address] [place] [address] Scheduled Orders Name Type Priority Associated Diagnoses Orde r Schedule CBC WITH WBC DIFFERENTIAL Lab STAT 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) Malignant neoplasm of upper-outer quadrant of left breast in female, estrogen receptor positive (HCC) Every Month for 12 Occurrences starting 01/28/2025 until 01/28/2026 COMPREHENSIVE METABOLIC PANEL Lab STAT 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) Malignant neoplasm of upper-outer quadrant of left breast in female, estrogen receptor positive (HCC) Every Month for 12 Occurrences starting 01/28/2025 until 01/28/2026 Scheduled Procedures Name Priority Associated Diagnoses Date/Ti me COLONOSCOPY FLEXIBLE PROXIMA L DIAGNOSTIC Gastroesophageal reflux disease, unspecified whether esophagitis present 04/01/2025 11:00 AM EDT ESOPHAGOGASTRODUODENOSCOPY ( EGD), FLEXIBLE, TRANSORAL, DIAGNOSTIC Gastroesophageal reflux disease, unspecified whether esophagitis present 04/01/2025 11:00 AM EDT Scheduled Referrals Name Type Priority Associated Diagnoses Orde r Schedule PHARMACIST MEDS THERAPY MGMT REFERRAL OP Referral Within 10 days (routine) 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
--- OUTSIDE RECORDS SUMMARY | 2025-04-07 11:42 | External Medical Summary | Summary of Care ---
Author Name Unknown Organization [facility] Address [address] [place] [address] Phone [phone] Care Team Providers Care Control Systems Engineer Name Role Phone Rowena Banks PA-C Primary Care Provider [phone] Reason for Visit * Reason Comments Medication Management Encounter Details Date Type Department Care Team (Late st Contact Info) Description 01/25/2025 1:00 PM [facility] Pharmacy Pharmacy Hematology Oncology [facility] [address] [place] [address] [facility] Hem/Onc [address] [place], [place] [id number] Malignant neoplasm of upper-outer quadrant of left [...] as of this encounter (statuses as of 01/25/2025) Medications COMBIGAN 0.2-0.5 % ophthalmic solution Instill [...] A1c goal of less than 7.0% ([facility]) Use up to twice times a [...] on 01/24/2025 Gabapentin 100 MG Oral Capsule (Neurontin)Sharee cations:Neuropa [...] Active Additional Information Patient taking differently:20 mg [id number], Reported on 01/24/2025 Esomeprazole Magnesium 40 MG [...] for Nausea. 30 Tablet 3 024 Active Ondansetron HCl 8 MG Oral Tablet (Zofran)Indicat [...] Tablets by mouth daily. 45 Tablet 3 025 Active Additional Information Patient not taking.Reported on 01/24/2025 Fluticasone Propionate 50 MCG/ACT Nasal Suspension (Flonase)Indica [...] 100 Each 5 025 Active Calcium 1200 5739-7523 MG-UNIT Oral Tablet Chewable Take 1 Tablet by mouth in the morning. 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 30 Tablet 025 Active Abemaciclib 100 MG Oral Tablet (Verzenio)Indic ations:Malignan [...] as of this encounter (statuses as of 01/25/2025) Active Problems Problem Noted Date Diagnosed Date [...] as of this encounter (statuses as of 01/25/2025) Resolved Problems Problem Noted Date Diagnosed Date [...] as of this encounter (statuses as of 01/25/2025) Immunizations Name Administration Dates Next Due COVID-19 [...] this encounter Progress Notes * Nessa Taveras, [facility] - 01/25/2025 8:10 AM EST MEDICATION THERAPY MANAGEMENT CAPECITABINE INITIAL INTAKE NOTE Sarah Burgos [id number] Patient Phone Numbers Preferred Lab: [place] Specialty Pharmacy: [facility] Communication: Chart review Treatment: Medication: Capecitabine (Xeloda) Indication/Staging/Diagnosis Code: met ER+/AL+/HER2- breast cancer / C50.412 Dose Basis: 800mg/m2 Dose: 1650mg (3-500mg + 1-150mg tab) BID 7 days on, 7 days off Administration: within 30 minutes after AM/PM meals Start Date: TBD Primary Senior Military Analyst/Oncologist: Dr. Rui Christiansen Supportive Care Meds: Xgeva Ondansetron Prochlorperazine Prophylactic Meds: Urea cream (to be ordered in beacon plan) Relevant Chronic Medications: Category Medications Pertinent Notes Antihypertensives HCTZ 12.5mg daily Losartain 100mg daily Carvedilol 6.25mg BID Hydralazine 50mg TID Per cardiology Antidiabetic Sitagliptin Pt hx Anticoagulation ASA 81mg daily Pt hx Cycle Dates C1 TBD C2 TBD Review of therapy: Line of therapy: fourth Previous therapy: 12/25/19-05/22/20: DDAC + paclitaxel 07/07/20: b/l mastectomy 10/2020: RT 05/2020-10/2022: anastrozole 10/2022-02/2024: exemestane 03/28/24-01/2025: abemaciclib and fulvestrant Reviewed dosage prescribed for appropriateness (based on indication, hepatic function,renal function, etc): no changes Dose assessment: 800mg/m2 * 2.11m2 (01/24/25)= 1688mg (rounded to 1650mg) Are appropriate supportive care medications prescribed? Yes Are appropriate prophylactic medications prescribed? No, HFS ppx ordered in beacon plan Have baseline labs/tests been obtained? Yes Has hepatitis B screening been completed? Yes Potential drug-drug drug-herbal, drug-food, drug-disease interactions: Yes, Esomeprazole / Capecitabine: Inhibitors of the Proton Pump (PPIs and PCABs) may diminish the therapeutic effect of Capecitabine Recommendation: Consider the need for a proton pump inhibitor (PPI) or potassium-competitive acid ozzie (PCAB) in patients receiving capecitabine. If combined, monitor closely for any evidence of reduced capecitabine effectiveness with use of this combination Action: Will academic counselor pt on DDI The Hematology/Oncology Oral Chemotherapy Clinic will assess medication compliance at each patient encounter Assessment and Plan: Per OV 01/24/25, discontinue abemaciclib due to poor tolerability and start capecitabine [place] plan uploaded and sent to Dr. Christiansen for signature MTM to follow up in 3 days to assess beacon plan signature and auth status Yes/no Date Action Taken [place] plan entered? yes 01/25/25 Consent completed? yes 01/24/25 Intro/med rec completed? N/A Pt established with MTM Precert completed? Test claim completed? Financial assistance needed? Physician signature? Rx released? Education completed? Follow up: 3 days Nessa Taveras, PharmD, BCOP Clinical Pharmacist, [facility] Oral Chemotherapy [facility] 01/25/2025, 8:56 AM Monitoring Parameters: Estimated CrCl Serum creatinine: 1 mg/dL 01/07/25 0757 Estimated creatinine clearance: 60.7 mL/min Hepatitis panel Latest Reference Range & [...] Pertinent labs: Latest Reference Range & Units 01/07/25 07:57 WBC 4.00 - 10.80 K/uL 3.13 (L) RBC 3.85 - 5.15 M/uL 2.82 HGB 12.0 - 15.3 g/dL 10.3 (L) HCT 36.0 - 45.2 % 31.7 (L) MCV 81.5 - 97.5 fL 112.4 MCH 27.0 - 34.0 pg 36.5 MCHC 32.0 - 36.0 g/dL 32.5 RDW 11.5 - 15.5 % 14.5 PLT 140 - 400 K/uL 166 MPV 6.6 - 11.1 fL 10.4 CBC WITH WBC DIFFERENTIAL Rpt ! Absolute Neutrophils 1.80 - 7.70 K/uL 1.86 Latest Reference Range & Units 01/07/25 07:57 Albumin 3.8 - 5.0 g/dL 4.1 AST 10 - 35 U/L 24 ALT 10 - 35 U/L 10 Alkaline Phosphatase 35 - 130 U/L 473 (H) Bilirubin, Total <=1.2 mg/dL 0.5 GGTP <=40 U/L 19 Time Spent on Encounter: 16 - 20 minutes Encounter Group: Oncology Encounter Interventions Item Category: Oral Chemotherapy Abemaciclib Problem/Rationale: Safety: Adverse medication event - Undesirable effect Pharmacist Intervention(s): Medication discontinued and Medication reconciliation Magnitude of Intervention: Modification of medications for symtomatic patients (Level 3) Second Item Second Item Category: Oral Chemotherapy Capecitabine Problem/Rationale: Indication: Needs additional medication therapy - Untreated condition [place] Plan Review:Initial Plan/upload Pharmacist Intervention(s): Drug information question, Lab monitoring, and Referral review Magnitude of Intervention: Monitoring with direction (Level 1) documented in this encounter Plan of Treatment Upcoming Encounters Date Type Department Care Team (Latest Contact Info) Description 01/30/2025 11:00 AM EDT Pt Ed by Nurse Hematology/Oncolog y [place] [address] [place] [address] [place], Nurse Hem Onc Scenery [address] [place] [address] 01/30/2025 1:30 PM EDT Pharmacy Pharmacy Hematology Oncology [facility] [address] [place] [address] [facility] Hem/Onc [address] [place] [address] 01/30/2025 2:00 PM EDT Office Visit Gastroenterology, [facility] [address] [place] [address] Rosendo Alcantara CRNP [address] [place] [address] 02/04/2025 12:00 PM EDT Laboratory Laboratory, Brigid Peña [address] [place] [phone] [facility] [address] [place] [address] 02/05/2025 11:30 AM EDT Immunization/Inject ion Hematology/Oncolog y Treatment, [place] [address] [place] [address] Nimo, Chair 10 Hem Onc Scenery [address] [place], [place] [address] 03/04/2025 9:00 AM EDT Office Visit Orthopaedics [facility] [address] [place] [phone] Javed Salas DO [address] [place] [phone] 04/01/2025 11:00 AM EDT Hospital Encounter ENDO [facility], Endoscopy Room [facility] [address] [place] [phone] Homar Padgett MD [address] [place] [address] 04/01/2025 11:00 AM EDT - 04/01/2025 12:00 PM EDT Surgery ENDO [facility], Endoscopy Room [facility] [address] [place] [address] Homar Padgett MD [address] [place] [address] COLONOSCOPY FLEXIBLE PROXIMAL DIAGNOSTIC 06/24/2025 8:30 AM EDT Office Visit Cardiology, [facility] [address] [place] [address] Homar Ware PA-C [address] [place] [address] Scheduled Procedures Name Priority Associated Diagnoses Date/Ti me COLONOSCOPY FLEXIBLE PROXIMA L DIAGNOSTIC Gastroesophageal reflux disease, unspecified whether esophagitis present 04/01/2025 11:00 AM EDT ESOPHAGOGASTRODUODENOSCOPY ( EGD), FLEXIBLE, TRANSORAL, DIAGNOSTIC Gastroesophageal reflux disease, unspecified whether esophagitis present 04/01/2025 11:00 AM EDT Health Maintenance Due Date Last [...] Cancer Screening 02/28/2028 DXA Scan 03/14/2030 03/14/2023, 0701/2020, 03/30/2019 Diabetic Foot Exam Discontinued 09/27/2022, 0 [...] Discussed due to patient's condition Care Teams Control Systems Engineer Relationship Specialty Start Date End Date Roewna Banks PA-C [address] [facility] [place] [address] PCP - General Physician Advertising Dispatch Clerk 06/01/22 documented as of this encounter
--- OUTSIDE RECORDS SUMMARY | 2025-04-07 11:42 | External Medical Summary | Summary of Care ---
Author Name Unknown Organization [facility] Address [address] [facility] [place] [address] Phone [phone] Care Team Providers Care Carton Forming Machine Adjuster Name Role Phone Rowena Banks PA-C Primary Care Provider [phone] Reason for Visit * Reason Onset Date Comments Precert Future 01/24/2025 xeloda Encounter Details Date Type Department Care Team (Late st Contact Info) Description 01/24/2025 Telephone Hematology/Oncology Treatment, [place] [address] [facility] [place] [phone] Marquis Christiansen MD [address] [place] [address] Precert Future (xeloda) Allergies Active Allergy Reactions [...] as of this encounter (statuses as of 01/30/2025) Medications COMBIGAN 0.2-0.5 % ophthalmic solution Instill [...] goal of less than 7.0% ([facility]) Use up to twice times [...] Active Additional Information Patient taking differently:20 mg [id number], Reported on 01/24/2025 Esomeprazole Magnesium 40 MG [...] 100 Each 5 025 Active Calcium 1200 5313-4311 MG-UNIT Oral Tablet Chewable Take 1 Tablet [...] as of this encounter (statuses as of 01/30/2025) Active Problems Problem Noted Date Diagnosed Date [...] as of this encounter (statuses as of 01/30/2025) Resolved Problems Problem Noted Date Diagnosed Date [...] Hyperlipidemia with target LDL less than 100 09/21/2017 Overview (03/22/2016): ICD-10 update of inactive [...] as of this encounter (statuses as of 01/30/2025) Immunizations Name Administration Dates Next Due COVID-19 [...] Order received for xeloda. Forwarded order to MTM. Education 01/30/25. Hep B labs 02/07/24. documented in this encounter Plan of Treatment Upcoming Encounters Date Type Department Care Team (Latest Contact Info) Description 01/31/2025 9:45 AM EDT Pharmacy Pharmacy Hematology Oncology [place] [address] [place] [address] [facility] Hem/Onc [facility] [place] [address] 02/04/2025 12:00 PM EDT Laboratory Laboratory, [address] [place] [phone] Mavis [place] [address] [place] [address] 02/05/2025 11:30 AM EDT Immunization/Inject ion Hematology/Oncolog y Treatment, [place] [address] [facility] [address] [place], [place] [address] Nimo, Chair 10 Hem Onc Scenery [address] [place], [place] [address] 03/04/2025 9:00 AM EDT Office Visit Orthopaedics [facility] [address] [place] [phone] Javed Salas, [address] [place] [phone] 04/01/2025 11:15 AM EDT Hospital Encounter ENDO [facility], Endoscopy Room [facility] [address] [place] [phone] Homar Padgett MD [address] [place] [address] 04/01/2025 11:15 AM EDT - 04/01/2025 12:15 PM EDT Surgery ENDO [facility], Endoscopy Room [facility] [address] [place] [address] Homar Padgett MD [address] [place] [address] COLONOSCOPY FLEXIBLE PROXIMAL DIAGNOSTIC 06/24/2025 8:30 AM EDT Office Visit Cardiology, [facility] [address] [place] [address] Homar Ware PA-C [address] [place] [address] Scheduled Procedures Name Priority Associated Diagnoses Date/Ti [...] Discussed due to patient's condition Care Teams Carton Forming Machine Adjuster Relationship Specialty Start Date End Date Rowena Banks PA-C [facility] [place] [address] PCP - General Physician In Home Caregiver 06/01/22 documented as of this encounter
--- OUTSIDE RECORDS SUMMARY | 2025-04-07 11:42 | External Medical Summary | Summary of Care ---
Author Name Unknown Organization [facility] Address [address] [facility] [place] [address] Phone [phone] Care Team Providers Care Smoking Pipe Mounter Name Role Phone Rowena Banks PA-C Primary Care Provider [phone] [phone] Reason for Visit * Reason Onset Date Comments Precert Future 01/24/2025 xeloda Encounter Details Date Type Department Care Team (Late st Contact Info) Description 01/24/2025 Telephone Hematology/Oncology Treatment, [place] [address] [place] [phone] Marquis Christiansen MD [address] [place] [address] Precert Future (xeloda) Allergies Active Allergy Reactions [...] goal of less than 7.0% ([facility]) Use up to twice times a [...] Active Additional Information Patient taking differently:20 mg [id number], Reported on 01/24/2025 Esomeprazole Magnesium 40 MG [...] 100 Each 5 025 Active Calcium 1200 6758-1735 MG-UNIT Oral Tablet Chewable Take 1 Tablet [...] 09/24/2020 Overview (09/24/2020): Negative Genetic testing for: UJAN, BARD1, BRCA1, BRCA2, BRIP1, CDH1, CHEK2, EPCAM*, [...] Order received for xeloda. Forwarded order to [facility]. Education 01/30/25. Hep B labs 02/07/24. documented in this encounter Plan of Treatment Upcoming Encounters Date Type Department Care Team (Latest Contact Info) Description 01/30/2025 11:00 AM EDT Pt Ed by Nurse Hematology/Oncolog y Patrick Suero [place] [address] [place] [address] Nimo Nurse Hem Onc Scenery [address] [place] [address] 01/30/2025 1:30 PM EDT Pharmacy Pharmacy Hematology Oncology [place] [address] [place] [address] [facility], [facility] Hem/Onc [address] [place] [address] 01/30/2025 2:00 PM EDT Office Visit Gastroenterology, [facility] [address] [place] [address] Rosendo Alcantara CRNP [address] [place], [place] [address] 02/04/2025 12:00 PM EDT [facility] [facility] [address] [facility] [place] [phone] [place], Laboratory [address] [facility] [place], [place] [address] 02/05/2025 11:30 AM EDT Immunization/Inject ion Hematology/Oncolog y Treatment, [place] [address] [place] [address] Nimo, Chair 10 Hem Onc Scenery [address] [place] [address] 03/04/2025 9:00 AM EDT Office Visit Orthopaedics [facility] [address] [place] [phone] Javed Salas, [address] [place] [phone] 04/01/2025 11:00 AM EDT Hospital Encounter ENDO OSS[facility], Endoscopy Room [facility] [address] [place] [phone] Homar Padgett MD [address] [place] [address] 04/01/2025 11:00 AM EDT - 04/01/2025 12:00 PM EDT Surgery ENDO O[facility], Endoscopy Room [facility] [address] [place] [address] Homar Padgett MD [address] [place] [address] COLONOSCOPY FLEXIBLE PROXIMAL DIAGNOSTIC 06/24/2025 8:30 AM EDT Office Visit Cardiology, [facility] [address] [place] [address] Homar Ware PA-C [address] [place] [address] Scheduled Procedures Name Priority Associated Diagnoses Date/Ti [...] (Patient Declined After Education) GFR 01/07/2026 01/07/2025, 020 01/2025, 12/10/2024, Additional history exists Colonoscopy 02/28/2028 [...] Discussed due to patient's condition Care Teams Smoking Pipe Mounter Relationship Specialty Start Date End Date Rowena Banks PA-C [address] [place] [address] PCP - General Physician Awning Frame Maker 06/01/22 documented as of this encounter
--- OUTSIDE RECORDS SUMMARY | 2025-04-07 11:42 | External Medical Summary | Summary of Care ---
Author Name Unknown Organization [facility] Address [address] [place] [address] Phone [phone] Care Team Providers Care Chinese Instructor Name Role Phone Rowena Banks PA-C Primary Care Provider [phone] [phone] Reason for Visit * Reason Comments Medication Management Encounter Details Date Type Department Care Team (Late st Contact Info) Description 01/31/2025 9:45 AM EDT Pharmacy Pharmacy Hematology Oncology [facility] [address] [place] [address] [facility] Clinic Hem/Onc [address] [place], [place] [id number] Malignant neoplasm of upper-outer quadrant of left [...] as of this encounter (statuses as of 01/31/2025) Medications ROME 0.2-0.5 % ophthalmic solution Instill [...] Active Additional Information Patient taking differently:20 mg [id number], Reported on 01/30/2025 Esomeprazole Magnesium 40 MG [...] sugar). 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 Apply topically to hands and feet twice daily 228 g 01/29/20 Active Additional Information Patient not taking.Reported [...] crush or cut.. 28 Tablet 5 01/29/20 Active Additional Information Patient not taking.Reported [...] crush or cut.. 84 Tablet 5 01/29/20 Active Additional Information Patient not taking.Reported [...] as of this encounter (statuses as of 01/31/2025) Active Problems Problem Noted Date Diagnosed Date [...] as of this encounter (statuses as of 01/31/2025) Resolved Problems Problem Noted Date Diagnosed Date [...] as of this encounter (statuses as of 01/31/2025) Immunizations Name Administration Dates Next Due COVID-19 [...] this encounter Progress Notes * Nessa Taveras, [facility] - 01/31/2025 1:24 PM EDT MEDICATION THERAPY MANAGEMENT CAPECITABINE TREATMENT EDUCATION NOTE Sarah Burgos [id number] Patient Phone Numbers Preferred Lab: Brigid/Patrick [facility]ero Specialty Pharmacy: [facility] ([facility] copy below into specialty comments) Treatment consent complete: yes Date: 01/24/25 Precertification complete: yes Date: 01/25/25 Communication: Spoke to: Patient Treatment: Medication: Capecitabine (Xeloda) Indication/Staging/Diagnosis Code: met ER+/ME+/HER2- breast cancer / C50.412 Dose Basis: 800mg/m2 Dose: 1650mg (3-500mg + 1-150mg tab) BID 7 days on, 7 days off Administration: within 30 minutes after AM/PM meals Start Date: TBD Primary Mate First/Oncologist: Dr. Rui Christiansen Supportive Care Meds: Xgeva Ondansetron Prochlorperazine Prophylactic Meds: Urea cream Relevant Chronic Medications: Category Medications Pertinent Notes Antihypertensives HCTZ 12.5mg daily Losartain 100mg daily Carvedilol 6.25mg BID Hydralazine 50mg TID Per cardiology Antidiabetic Sitagliptin Pt hx Anticoagulation ASA 81mg daily Pt hx Cycle Dates C1 TBD C2 TBD Treatment History: 12/25/19-05/22/20: DDAC + paclitaxel 07/07/20: b/l mastectomy 10/2020: RT 05/2020-10/2022: anastrozole 10/2022-02/2024: exemestane 03/28/24-01/2025: abemaciclib and fulvestrant Medication education: Confirmed pt has received information regarding goals and duration of therapy: yes Reviewed dosing and administration: yes Reviewed importance of medication compliance (document recommendations if barriers identified): yes Reviewed appropriate storage conditions: yes Reviewed handling precautions: yes Reviewed handling body fluids and waste: yes Reviewed side effects, monitoring, and supportive care measures: yes Hand Foot Syndrome This medication can cause blisters, peeling and burning of the skin on the palms of your hands and the soles of your feet Avoid wearing tight-fitting shoes, as well as rigorous exercise, as they can increase friction on the soles of your feet Use luke warm water when taking a shower, washing your hands, washing the dishes Apply Udderly Smooth Extra Care (urea 20% cream) to hands and feet twice daily When to call clinic: If you develop pain/burning, redness, peeling, or blistering Diarrhea This medication can cause loose stools You can purchase OTC loperamide (Imodium A-D) to help manage this side effect (4 mg x 1, followed by 2 mg Q4H or after every loose stool, not to exceed 16 mg/day) Drink plenty of fluids to prevent dehydration, ideally 8-10 glasses per day (unless a healthcare provider has instructed you to limit your fluid intake due to other health conditions) Dietary modifications: eat bland, low fiber foods such as bananas, rice, applesauce, and toast (BRAT diet), avoid dairy, avoid spicy, greasy or fatty foods When to call clinic: If approaching maximum dose of loperamide and still having diarrhea or if you have any s/sx of dehydration; if there is a concern for infectious diarrhea (especially in setting of neutropenia) Nausea/vomiting This medication may cause nausea or vomiting Low/Minimal emetic risk: Zofran/Compazine PRN, but if consistently nauseated, can administer Ynopee93 minutes prior to chemotherapy Dietary modifications: avoid spicy, greasy, fatty foods If vomiting, increase water intake to avoid dehydration When to call clinic: N/V refractory to antiemetics or if unable to keep up with oral intake Stomatitis This medication can cause mouth soreness or sores Maintain good oral hygiene: use a soft bristle toothbrush; rinse mouth after meals and at bedtime with a non-alcohol based mouthwash Salt water/baking soda rinse: 1/8 tsp salt + ¼ tsp baking soda + 8 oz warm water; swish and spit PRN If sore develop, continue supportive care above. Also avoid spicy, acidic, citrus foods When to call clinic: If sores become painful or affecting oral intake Confirmed pt has received written information about drug therapy: yes Changes to medication list since last visit: no Drug interaction assessment: Treatment plan and current medication list evaluated for drug-drug interactions. No clinically significant drug interaction identified Does patient rely on caregiver for medication management? no Assessment and plan: Pt verbalized understanding to information provided. All questions answered to the patient's satisfaction Pt was educated about role of Oral Chemotherapy Clinic and pharmacist in medication management, andplan for follow up. Per [facility] encounter 01/28/25, LM requesting call back to set up RX shipment Provided P number and encouraged to return call for shipment Advised pt to delay treatment start until office reopens 02/04/25 MTM to follow up in 1 week to confirm start date and assess tolerability Follow up: 1 week Nessa Taveras, PharmD, BCOP Clinical Pharmacist, [facility] Oral Chemotherapy [facility] 01/31/2025, 1:42 PM Monitoring Parameters: Estimated CrCl Serum creatinine: 1 mg/dL 01/07/25 0757 Estimated creatinine clearance: 61.1 mL/min Hepatitis panel Latest Reference Range & [...] Pertinent labs: N/A Time Spent on Encounter: 16 - 20 minutes Encounter Group: Oncology Encounter Interventions Item Category: Oral Chemotherapy Capecitabine Problem/Rationale: Indication: Needs additional medication therapy - Untreated condition Adherence - Medication product not available Education: Initial education Pharmacist Intervention(s): Adherence addressed and Education provided Magnitude of Intervention: Monitoring with direction (Level 1) Second Item Second Item Category: Topicals Urea Problem/Rationale: Indication: Needs additional medication therapy - Preventive therapy Education: Initial education Pharmacist Intervention(s): Education provided Magnitude of Intervention: Monitoring with direction (Level 1) documented in this encounter Plan of Treatment Upcoming Encounters Date Type Department Care Team (Latest Contact Info) Description 02/04/2025 12:00 PM EDT Laboratory Laboratory, [facility] [place] [address] [place] [phone] [facility] [address] [place] [address] 02/05/2025 11:30 AM EDT Immunization/Inject ion Hematology/Oncolog y Treatment, [place] [address] [place] [address] Nimo, Chair 10 Hem Onc Scenery [address] [place] [address] 02/08/2025 9:45 AM EDT Pharmacy Pharmacy Hematology Oncology [facility] [address] [place] [address] [facility] Hem/Onc [address] [place] [address] 03/04/2025 9:00 AM EDT Office Visit Orthopaedics [facility] [address] [place] [phone] Javed Salas DO [address] [place] [address] 04/01/2025 11:15 AM EDT Hospital Encounter ENDO OSSC, Endoscopy Room [facility] [address] [place] [phone] Homar Padgett MD [address] [place] [address] 04/01/2025 11:15 AM EDT - 04/01/2025 12:15 PM EDT Surgery ENDO OSSC, Endoscopy Room [facility] [address] [place] [address] Homar Padgett MD [address] [place] [address] COLONOSCOPY FLEXIBLE PROXIMAL DIAGNOSTIC 06/24/2025 8:30 AM EDT Office Visit Cardiology, [facility] [address] [place] [address] Homar Ware PAMarimarC [address] [place] [address] Scheduled Procedures Name Priority Associated Diagnoses Date/Ti [...] Discussed due to patient's condition Care Teams Chinese Instructor Relationship Specialty Start Date End Date Rowena Banks PA-C [address] [place] [address] PCP - General Physician Correspondence Renew Clerk 06/01/22 documented as of this encounter
--- OUTSIDE RECORDS SUMMARY | 2025-04-07 11:42 | External Medical Summary | Summary of Care ---
Author Name Unknown Organization [facility] Address [address] [place] [address] Phone [phone] Care Team Providers Care Stogy Roller Name Role Phone Rowena Banks PA-C Primary Care Provider [phone] Reason for Visit * Reason Comments Medication Management Encounter Details Date Type Department Care Team (Late st Contact Info) Description 01/25/2025 1:00 PM [facility] Pharmacy Pharmacy Hematology Oncology [facility] [address] [place] [address] [facility], [facility] Hem/Onc [address] [place], [place] [id number] Malignant neoplasm of upper-outer quadrant of left [...] hemoglobin A1c goal of less than 7.0% ([facility]) Use up to twice times a day [...] Active Additional Information Patient taking differently:20 mg [id number], Reported on 01/24/2025 Esomeprazole Magnesium 40 MG [...] 100 Each 5 025 Active Calcium 1200 3438-0308 MG-UNIT Oral Tablet Chewable Take 1 Tablet [...] this encounter Progress Notes * Nessa Taveras, [facility] - 01/25/2025 8:10 AM EST MEDICATION THERAPY MANAGEMENT CAPECITABINE INITIAL INTAKE NOTE Sarah Burgos [id number] Patient Phone Numbers Preferred Lab: [place] Specialty Pharmacy: [facility] Communication: Chart review Treatment: Medication: Capecitabine (Xeloda) Indication/Staging/Diagnosis Code: met ER+/[place]+/HER2- breast cancer / C50.412 Dose Basis: 800mg/m2 Dose: 1650mg (3-500mg + 1-150mg tab) BID 7 days on, 7 days off Administration: within 30 minutes after AM/PM meals Start Date: TBD Primary Evaluation Advisor/Oncologist: Dr. Rui Christiansen Supportive Care Meds: Xgeva [...] with use of this combination Action: Will disability counselor pt on DDI The Hematology/Oncology Oral Chemotherapy Clinic will assess medication compliance at each patient encounter Assessment and Plan: Per OV 01/24/25, discontinue abemaciclib due to poor tolerability and start capecitabine [place] plan uploaded and sent to Dr. Christiansen for signature MTM to follow up in 3 days to assess beacon plan signature and auth status Yes/no Date Action Taken [place] plan entered? yes 01/25/25 Consent completed? yes 01/24/25 Intro/med rec completed? N/A Pt established with MTM Precert completed? Test claim completed? Financial assistance needed? Physician signature? Rx released? Education completed? Follow up: 3 days Nessa Taveras, PharmD, BCOP Clinical Pharmacist, [facility] Oral Chemotherapy [facility] 01/25/2025, 8:56 AM Monitoring Parameters: Estimated CrCl [...] Needs additional medication therapy - Untreated condition [place] Plan Review:Initial Plan/upload Pharmacist Intervention(s): Drug information question, Lab monitoring, and Referral review Magnitude of Intervention: Monitoring with direction (Level 1) documented in this encounter Plan of Treatment Upcoming Encounters Date Type Department Care Team (Latest Contact Info) Description 01/30/2025 11:00 AM EDT Pt Ed by Nurse Hematology/Oncolog y Sc[place] [address] [place] [address] Nimo, Nurse Hem Onc Scenery [address] [place] [address] 01/30/2025 1:30 PM EDT Pharmacy Pharmacy Hematology Oncology [facility] [address] [place] [address] [facility], [facility] Hem/Onc [address] [place] [address] 01/30/2025 2:00 PM EDT Office Visit Gastroenterology, [facility] [address] [place] [address] Rosendo Alcantara CRNP [address] [place] [address] 02/04/2025 12:00 PM EDT Laboratory Laboratory, Brigid Peña [address] [place] [phone] [facility] [address] [place] [address] 02/05/2025 11:30 AM EDT Immunization/Inject ion Hematology/Oncolog y Treatment, [place] [address] [place] [address] Nimo, Chair 10 Hem Onc Scenery [address] [place], [place] [address] 03/04/2025 9:00 AM EDT Office Visit Orthopaedics [facility] [address] [place] [phone] Javed Salas DO [address] [place] [phone] 04/01/2025 11:00 AM EDT Hospital Encounter ENDO OSSC, Endoscopy Room [facility] [address] [place] [phone] Homar Padgett MD [address] [place] [address] 04/01/2025 11:00 AM EDT - 04/01/2025 12:00 PM EDT Surgery ENDO O[facility], Endoscopy Room [facility] [address] [place] [address] Homar Padgett MD [address] [place] [address] COLONOSCOPY FLEXIBLE PROXIMAL DIAGNOSTIC 06/24/2025 8:30 AM EDT Office Visit Cardiology, [facility] [address] [place] [address] Homar Ware PA-C [address] [place] [address] Scheduled Procedures Name Priority Associated Diagnoses Date/Ti [...] Discussed due to patient's condition Care Teams Stogy Roller Relationship Specialty Start Date End Date Rowena Banks PA-C [address] [facility] [place] [address] PCP - General Physician Boat Joiner Helper 06/01/22 documented as of this encounter
--- OUTSIDE RECORDS SUMMARY | 2025-04-07 11:42 | External Medical Summary | Summary of Care ---
Author Name Unknown Organization [facility] Address [address] [facility] [place] [address] Phone [phone] Care Team Providers Care Screwhead Stoner And Polisher Name Role Phone Rowena Banks PA-C Primary Care Provider [phone] Reason for Visit * Reason Onset Date Comments Precert Future 01/24/2025 xeloda Encounter Details Date Type Department Care Team (Late st Contact Info) Description 01/24/2025 Telephone Hematology/Oncology Treatment, [place] [address] [facility] [address] [address] [place] [phone] Marquis Christiansen MD [address] [place] [address] Precert Future (xeloda) Allergies Active Allergy Reactions [...] as of this encounter (statuses as of 02/01/2025) Medications COMBIGAN 0.2-0.5 % ophthalmic solution Instill [...] Active Additional Information Patient taking differently:20 mg [id number], Reported on 01/30/2025 Esomeprazole Magnesium 40 MG [...] 100 Each 5 025 Active Calcium 1200 3163-2177 MG-UNIT Oral Tablet Chewable Take 1 Tablet [...] as of this encounter (statuses as of 02/01/2025) Active Problems Problem Noted Date Diagnosed Date [...] as of this encounter (statuses as of 02/01/2025) Resolved Problems Problem Noted Date Diagnosed Date [...] as of this encounter (statuses as of 02/01/2025) Immunizations Name Administration Dates Next Due COVID-19 [...] 02/04/2025 12:00 PM EDT Laboratory Laboratory, [facility] [place] [address] [place] [phone] [facility] [address] [place] [address] 02/05/2025 11:30 AM EDT Immunization/Inject ion Hematology/Oncolog y Treatment, [place] [address] [place] [phone] Nimo, Chair 10 Hem Onc Scenery [address] [place] [address] 02/08/2025 9:45 AM EDT Pharmacy Pharmacy Hematology Oncology [facility] [address] [place] [address] c, [facility] Hem/Onc [address] [place] [address] 03/04/2025 9:00 AM EDT Office Visit Orthopaedics [facility] [address] [place] [address] Javed Salas DO [address] [place] [address] 04/01/2025 11:15 AM EDT Hospital Encounter ENDO OSSC, Endoscopy Room [facility] [address] [place] [address] Homar Padgett MD [address] [place] [address] 04/01/2025 11:15 AM EDT - 04/01/2025 12:15 PM EDT Surgery ENDO OSSC, Endoscopy Room [facility] [address] [place] [address] Homar Padgett MD [address] [place] [address] COLONOSCOPY FLEXIBLE PROXIMAL DIAGNOSTIC 06/24/2025 8:30 AM EDT Office Visit Cardiology, [facility] [address] [place] [address] Homar Ware PA-C [address] [place] [address] Scheduled Procedures Name Priority Associated Diagnoses Date/Ti [...] Discussed due to patient's condition Care Teams Screwhead Stoner And Polisher Relationship Specialty Start Date End Date Rowena Banks PA-C [address] [place] [address] PCP - General Physician Passenger Brakeman 06/01/22 documented as of this encounter
--- OUTSIDE RECORDS SUMMARY | 2025-04-07 11:42 | External Medical Summary | Summary of Care ---
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) Procedures [place] INJECTION, FULVESTRANT Marquis Christiansen MD [address] [place] [address] Phone: tel: fax: Hematology/Oncology Treatment, [address] [address] Phone: tel: fax: Referral ID Status Reason Start Date Expiration Date Visits Re quested Visits Authorized [id number] Closed 03/15/2024 11/20/[phone] Encounter Details Date Type Department Care Team (Late st Contact Info) Description 01/08/2025 10:15 AM EST Immunization/I njection Hematology/Oncology Treatment, [address] [address] 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 20 Tablet 024 Active Gabapentin 100 MG Oral Capsule (Neurontin)Sharee cations:Neuropa [...] before bedtime. 180 Tablet 3 024 Active Esomeprazole Magnesium 40 MG Oral Capsule Delayed [...] mouth at bedtime 60 Capsule 025 Active OneTouch Verio In Vitro Strip (Glucose Blood)Indicatio ns:Type 2 diabetes mellitus with hemoglobin A1c goal of less than 7.0% ([facility]) Use up to 2 times a day E11.9 100 Strip 11 022 2024 Discontinued(R efill) OneTouch UltraSoft LancetsIndicati ons:Type 2 diabetes mellitus with hemoglobin A1c goal of less than 7.0% ([facility]) Use as directed 2 times a day as needed for Hyperglycemia (high sugar) or Hypoglycemia (low sugar). 100 Each 1 022 2024 Discontinued(R efill) Montelukast Sodium 10 MG Oral Tablet (Singulair)Sharee cations:Chronic cough TAKE 1 TABLET BY MOUTH EVERY MORNING 90 Tablet 2 024 2024 Discontinued Fluticasone Propionate 50 MCG/ACT Nasal Suspension (Flonase)Indica tions:Dysfuncti on of Eustachian tube, bilateral Administer 2 Sprays into each nostril daily as needed for Congestion. 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 60 Tablet 5 01/17/20 25 7:32 AM EST 024 2024 Discontinued Hospital, [...] 06/21/2016 BITE BY CAT, RIGHT FOOT 05/04/2011 0811/2015 Deviated nasal septum 03/26/20112015 Cough 03/22/2011 06/21/2016 [...] as of this encounter Nursing Notes * Tameka Loco LPN - 01/08/2025 10:25 AM EST Pt arrived for Faslodex injection. Administered in B/L dorsogluteal. Pt also due to vitamin b12 injection. Administered in R deltoid. Xgeva will be held today due to pts calcium at 7.5. Pts Alk phos is 473. MD is aware is going to check vitamin D levels. Pt and daughter are aware. Pt to return in 4weeks. Discharged in stable condition. documented in this encounter Plan of Treatment Upcoming Encounters Date Type Department Care Team (Latest Contact Info) Description 01/30/2025 11:00 AM EDT Pt Ed by Nurse [facility] [place] [address] [place] [phone] Nimo Nurse Hem Onc Scenery [address] [place] [address] 01/30/2025 2:00 PM EDT Office Visit Gastroenterology, [facility] [address] [place] [address] Rosendo Alcantara CRNP [address] [place] [address] 01/31/2025 9:45 AM EDT Pharmacy Pharmacy Hematology Oncology [place] [address] [place] [address] [facility] Hem/Onc [address] [place] [address] 02/04/2025 12:00 PM EDT Laboratory Laboratory, Brigid [facility] [address] [place] [phone] Brigid, Laboratory [address] [place] [address] 02/05/2025 11:30 AM EDT Immunization/Inject ion Hematology/Oncolog y Treatment, [place] [address] [place] [phone] Nimo, Chair 10 Hem Onc Scenery [address] [place] [address] 03/04/2025 9:00 AM EDT Office Visit Orthopaedics [facility] [address] [place] [address] Javed Salas DO [address] [place] [phone] 04/01/2025 11:00 AM EDT Hospital Encounter ENDO OSSC, Endoscopy Room [facility] [address] [place] [phone] Homar Padgett MD [address] [place] [address] 04/01/2025 11:00 AM EDT - 04/01/2025 12:00 PM EDT Surgery ENDO OSSC, Endoscopy Room [facility] [address] [place] [phone] Homar Padgett MD [address] [place] [address] COLONOSCOPY FLEXIBLE PROXIMAL DIAGNOSTIC 06/24/2025 8:30 AM EDT Office Visit Cardiology, [facility] [address] [place] [address] Homar Ware PA-C [address] [place] [address] Scheduled Procedures Name Priority Associated Diagnoses Date/Ti [...] metastatic to axillary lymph node (HCC)- Primary B12 deficiency Other B-complex deficiencies Gastroesophageal reflux disease, unspecified whether esophagitis present documented in this encounter Administered Medications Inactive Administered Medications - up to 3 most recent administrations Medication Order MAR Action Action Date Dose Rate Site Fulvestrant (Faslodex) inj 500 mg 500 mg, Intramuscular, ONCE, On Tue01/08/25 at 1100, For 1 doseIndications:Carcin chela of left breast metastatic to axillary lymph node (HCC) Given 01/08/2025 10:08 AM EST 500 mg Dorsogluteal Left Vitamin B-12 (Cyanocobalamin) inj 1,000 mcg 1,000 mcg, Intramuscular, ONCE, On Tue01/08/25 at 1045, For 1 doseIndications:B12 deficiency Given 01/08/2025 10:02 AM EST 1,000 mcg Deltoid Right Upper documented in [...] Discussed due to patient's condition Care Teams Hanger Off Relationship Specialty Start Date End Date Rowena Banks PA-C [address] [place] [address] PCP - General Physician Inside Sales Manager 06/01/22 documented as of this encounter
--- OUTSIDE RECORDS SUMMARY | 2025-04-07 11:42 | External Medical Summary | Summary of Care ---
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 neoplasm of upper-outer quadrant of left breast in female, estrogen receptor positive (HCC) Nessa Taveras, [facility] [address] [place] [address] Phone: tel: fax: Referral ID Status Reason Start Date Expiration Date Visits Requested Visits Authorized [id number] Authorized Specialty Services Required 01/28/2025 99 99 Encounter Details Date Type Department Care Team (Late st Contact Info) Description 01/28/2025 1:30 PM EDT Pharmacy Pharmacy Hematology Oncology [facility] [address] [place] [address] [facility] Hem/Onc [address] [place] [address] Malignant neoplasm of upper-outer quadrant of left [...] goal of less than 7.0% ([facility]) Use up to twice times a [...] Active Additional Information Patient taking differently:20 mg [id number], Reported on 01/24/2025 Esomeprazole Magnesium 40 MG [...] Each 5 01/14/20 25 Active Calcium 1200 [id number] MG-UNIT Oral Tablet Chewable Take 1 Tablet [...] and feet twice daily 228 g 3 01/29/20 Active Capecitabine 150 MG Oral Tablet (Xeloda)Indicati [...] or cut.. 84 Tablet 5 01/29/20 Active Hospital, Clinic, or Other Facility Administered [...] this encounter Progress Notes * Nessa Taveras, [facility] - 01/28/2025 1:32 PM EDT Capecitabine and urea RX sent to [facility] to follow up in 3 days for medication education Nessa Taveras, PharmD, OP Clinical Pharmacist, [facility] Oral Chemotherapy [facility] 01/28/2025, 1:33 PM Time Spent on Encounter: 6 - 10 minutes Encounter Group: Oncology Encounter Interventions Item Category: Oral Chemotherapy Capecitabine Problem/Rationale: [place] Plan Review: Clinical Review Pharmacist Intervention(s): Medication prescribed Magnitude of Intervention: Modification of medication for asymtomatic patients (Level 2) * Lori Tesfaye, quality control microbiologist - 01/28/2025 12:23 PM EDT MEDICATION THERAPY MANAGEMENT CAPECITABINE (XELDOA) TREATMENT STATUS NOTE [address] [place] [id number] Patient Phone Numbers Communication: Chart review Treatment: Medication: Capecitabine (Xeloda) Indication/Staging/Diagnosis Code: met ER+/OH+/HER2- breast cancer / C50.412 Dose Basis: 800mg/m2 Dose: 1650mg (3-500mg + 1-150mg tab) BID 7 days on, 7 days off Administration: within 30 minutes after AM/PM meals Start Date: TBD Primary Boat [employer] Utility Supervisor/Oncologist: Dr. Rui Christiansen Supportive Care Meds: Xgeva Ondansetron Prochlorperazine Prophylactic Meds: Urea cream (to be ordered in beacon plan) Relevant Chronic Medications: Category Medications Pertinent Notes Antihypertensives HCTZ 12.5mg daily Losartain 100mg daily Carvedilol 6.25mg BID Hydralazine 50mg TID Per cardiology Antidiabetic Sitagliptin Pt hx Anticoagulation ASA 81mg daily Pt hx Cycle Dates C1 TBD C2 TBD Assessment and Plan: Per OV 01/24/25, discontinue abemaciclib due to poor tolerability and start capecitabine Yes/no Date Action Taken [place] plan entered? yes 01/25/25 Consent completed? yes 01/24/25 Intro/med rec completed? N/A Pt established with MTM Precert completed? Yes 01/25/25 Approved Test claim completed? Yes 01/25/25 GSP - $12.00 Financial assistance needed? No Physician signature? Yes 01/28/25 Rx released? Education completed? [facility] will contact patient once med shipped/received to complete medication education Please refer to initial intake note for detailed review of regimen and patient- specific education points NEELAM Pinto Tech Director [facility] Hematology Oncology Oral Chemotherapy Clinic Medication Therapy Disease Management [facility] 01/28/25,12:30 PM Time Spent on Encounter: 6 - 10 minutes Encounter Group: Oncology Encounter Interventions Item Category: Oral Chemotherapy Capecitabine documented in this encounter Plan of Treatment Upcoming Encounters Date Type Department Care Team (Latest Contact Info) Description 01/30/2025 11:00 AM EDT Pt Ed by Nurse [facility] [place] [address] [place] [phone] Nimo Nurse Hem Onc Scenery [address] [place] [address] 01/30/2025 2:00 PM EDT Office Visit [facility]astroenterology, [facility] [address] [facility] [address] Rosendo Alcantara CRNP [facility] [place] [address] 01/31/2025 9:45 AM EDT Pharmacy Pharmacy Hematology Oncology [facility] [address] [place] [address] [facility] Hem/Onc [address] [place] [address] 02/04/2025 12:00 PM EDT Laboratory Laboratory, Brigid Mart [address] [place] [phone] [facility] [address] [place] [address] 02/05/2025 11:30 AM EDT Immunization/Inject ion Hematology/Oncolog y Treatment, [place] [address] [place] [phone] Park, Chair 10 Hem Onc Scenery [address] [place] [address] 03/04/2025 9:00 AM EDT Office Visit Orthopaedics [facility] [address] [place] [address] Javed Salas, DO [address] [place] [phone] 04/01/2025 11:00 AM EDT Hospital Encounter ENDO OSSC, Endoscopy Room [facility] [address] [place] [phone] Homar Padgett MD [address] [place] [address] 04/01/2025 11:00 AM EDT - 04/01/2025 12:00 PM EDT Surgery ENDO OSSC, Endoscopy Room [facility] [address] [place] [phone] Homar Padgett MD [address] [place] [address] COLONOSCOPY FLEXIBLE PROXIMAL DIAGNOSTIC 06/24/2025 8:30 AM EDT Office Visit Cardiology, [facility] [address] [place] [address] Homar Ware, PA-C [address] [place] [address] Scheduled Procedures Name Priority Associated Diagnoses Date/Ti [...] Discussed due to patient's condition Care Teams Jewel Diameter Gauger Relationship Specialty Start Date End Date Rowena Banks PA-C [address] [place] [address] PCP - General Physician Laundry Agent 06/01/22 documented as of this encounter
--- OUTSIDE RECORDS SUMMARY | 2025-04-07 11:43 | External Medical Summary | Summary of Care ---
Author Name Unknown Organization [facility] Address [address] [facility] [place] [address] Phone [phone] Care Team Providers Care Batch Operator Name Role Phone Rowena Banks PA-C Primary Care Provider [phone] Reason for Visit * Reason Onset Date Comments Medication Refill 01/12/2025 Encounter Details Date Type Department Care Team (Late st Contact Info) Description 01/12/2025 Refill [facility] [address] [place] [address] Nathanael Carter MD [address] [facility] [place] [phone] Dysfunction of Eustachian tube, bilateral Allergies Active Allergy Reactions Criticality Noted Date [...] as of this encounter (statuses as of 01/12/2025) Medications COMBIGAN 0.2-0.5 % ophthalmic solution Instill 1 Drop into both eyes in the morning and 1 Drop before bedtime. 08/17/20 19 Active Naproxen Sodium 550 MG Oral Tablet TAKE 1 TABLET BY MOUTH TWICE A DAY WITH BREAKFAST AND DINNER 180 Tablet 1 07/11/20 23 Active aspirin enteric coated 81 MG TBEC Take 1 Tablet by mouth in the morning. 06/09/20 20 Active OneTouch Verio w/Device KitIndications:T ype 2 diabetes mellitus with hemoglobin A1c goal of less than 7.0% (HCC) Use up to twice times a day E11.9 1 Kit 04/15/20 22 Active OneTouch Verio In Vitro Strip (Glucose Blood)Indication s:Type 2 diabetes mellitus with hemoglobin A1c goal of less than 7.0% (HCC) Use up to 2 times a day E11.9 100 Strip 11 04/15/20 22 Active OneTouch UltraSoft LancetsIndicatio ns:Type 2 diabetes mellitus with hemoglobin A1c goal of less than 7.0% (HCC) Use as directed 2 times a day as needed for Hyperglycemia (high sugar) or Hypoglycemia (low sugar). 100 Each 1 04/15/20 22 Active Albuterol Sulfate HFA 108 [...] Muscle spasms. 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 60 Tablet 5 12/18/2024 2:12 PM EST 08/27/20 24 Active Gabapentin 100 MG Oral Capsule (Neurontin)Indic ations:Neuropath [...] bedtime. 180 Tablet 3 10/11/20 24 Active Esomeprazole Magnesium 40 MG Oral Capsule [...] daily. 45 Tablet 3 01/11/20 25 Active Fluticasone Propionate 50 MCG/ACT Nasal Suspension (Flonase)Indicat ions:Dysfunction of Eustachian tube, bilateral USE 2 SPRAYS IN EACH NOSTRIL ONCE DAILY IF NEEDED FOR CONGESTION 48 g 1 01/12/20 25 Active Hospital, Clinic, or Other Facility Administered Medication Ordered Dose Route Frequency Start Date End Date Status albuterol sulfate (PROVENTIL) (2.5 MG/3ML) 0.083% inhalation solution 2.5 mgIndications:Restrictive lung disease,SOB (shortness of breath) 2.5 mg NEBULIZER Q4H PRN 11/07/2017 Act roe documented as of this encounter (statuses as of 01/12/2025) Active Problems Problem Noted Date Diagnosed Date [...] as of this encounter (statuses as of 01/12/2025) Resolved Problems Problem Noted Date Diagnosed Date [...] as of this encounter (statuses as of 01/12/2025) Immunizations Name Administration Dates Next Due COVID-19 [...] encounter Miscellaneous Notes * Telephone Encounter - Cassandra Ozuna, [facility] - 01/12/2025 9:23 AM EST Refused Prescriptions: Disp Refills Fluticasone Propionate 50 MCG/ACT Nasal Daly*48 mL 1 Sig: Administer 2 Sprays into each nostril daily as needed for Congestion.[facility] Refusal: Request already responded to by other means documented in this encounter Plan of Treatment Upcoming Encounters Date Type Department Care Team (Latest Contact Info) Description 01/21/2025 11:45 AM EST Imaging Radiology [address] [place] [address] 01/21/2025 1:00 PM EST Imaging Radiology [address] [place] [address] 01/24/2025 11:00 AM EST Office Visit Hematology/Onco logy [facility] [address] [facility] [place] [phone] Marquis Christiansen MD [address] [facility] [place] [address] 02/04/2025 12:00 PM EDT Laboratory [facility], [place] [facility] [address] [place] [phone] [facility] [address] [place] [address] 02/05/2025 9:30 AM EDT Pharmacy Pharmacy Hematology Oncology [address] [address] [facility] Hem/Onc [facility] [place] [address] 02/05/2025 11:30 AM EDT Immunization/Inj ection Hematology/Onco logy Treatment, [place] [address] [place] [address] Nimo, Chair [address] Hem Onc Scenery [address] [place] [address] 03/04/2025 9:00 AM EDT Office Visit Orthopaedics [facility] [address] [place] [address] Javed Salas, [address] [place] [address] 04/01/2025 1:00 PM EDT Hospital Encounter ENDO OSSC, Endoscopy Room [facility] [address] [place] [phone] Amilcar Duran MD [address] [place] [address] 04/01/2025 1:00 PM EDT - 04/01/2025 1:30 PM EDT Surgery ENDO OSSC, Endoscopy Room [facility] [address] [place] [phone] Amilcar Duran MD [address] [place] [address] ESOPHAGOGASTRODUODENOSCOPY (EGD), FLEXIBLE, TRANSORAL, DIAGNOSTIC 06/24/2025 8:30 AM EDT Office Visit Cardiology, [place] [facility] [address] [place] [address] Homar Ware PA-C [address] [place] [address] Scheduled Procedures Name Priority Associated Diagnoses Date/Ti me ESOPHAGOGASTRODUODENOSCOPY ( EGD), FLEXIBLE, TRANSORAL, DIAGNOSTIC Gastroesophageal reflux disease, unspecified whether esophagitis present 04/01/2025 1:00 PM EDT COLONOSCOPY FLEXIBLE PROXIMA L DIAGNOSTIC Recall Screening for colon cancer Elevated serum alkaline phosphatase level History of breast cancer Chronic constipation Gastroesophageal reflux disease, unspecified whether esophagitis present Left-sided chest pain ESOPHAGOGASTRODUODENOSCOPY ( EGD), FLEXIBLE, TRANSORAL, DIAGNOSTIC Recall Screening for colon cancer Elevated serum alkaline phosphatase level History of breast cancer Chronic constipation Gastroesophageal reflux disease, unspecified whether esophagitis present Left-sided chest pain Health Maintenance Due Date Last Done Comments [...] as of this encounter Visit Diagnoses Diagnosis Dysfunction of Eustachian tube, bilateral Gastroesophageal reflux disease, unspecified whether esophagitis present [...] Discussed due to patient's condition Care Teams Batch Operator Relationship Specialty Start Date End Date Rowena Banks PA-C [address] [place] [address] PCP - General Physician Engineering Clerk 06/01/22 documented as of this encounter
--- OUTSIDE RECORDS SUMMARY | 2025-04-07 11:43 | External Medical Summary | Summary of Care ---
Author Name Unknown Organization [facility] Address [address] [facility] [address] Phone [phone] Care Team Providers Care Linseed Oil Order Filler Name Role Phone Rowena Banks PA-C Primary Care Provider [phone] [phone] Reason for Visit * Reason Onset Date Comments Advice 01/22/2025 Kuldip Encounter Details Date Type Department Care Team (Late st Contact Info) Description 01/22/2025 Telephone Hematology/Oncology [facility] [place] [address] [place] [phone] Marquis Christiansen MD [address] [place] [address] Advice (Kuldip) Allergies Active Allergy Reactions Criticality Noted Date [...] as of this encounter (statuses as of 01/22/2025) Medications COMBIGAN 0.2-0.5 % ophthalmic solution Instill [...] (1 tablet) before bedtime. 60 Tablet 5 01/17/2025 7:32 AM EST 08/27/20 24 Active Gabapentin 100 MG [...] (low sugar). 100 Each 01/14/20 25 Active Hospital, Clinic, or Other Facility Administered Medication Ordered Dose Route Frequency Start Date End Date Status albuterol sulfate (PROVENTIL) (2.5 MG/3ML) 0.083% inhalation solution 2.5 mgIndications:Restrictive lung disease,SOB (shortness of breath) 2.5 mg NEBULIZER Q4H PRN 11/07/2017 Act roe documented as of this encounter (statuses as of 01/22/2025) Active Problems Problem Noted Date Diagnosed Date [...] as of this encounter (statuses as of 01/22/2025) Resolved Problems Problem Noted Date Diagnosed Date [...] as of this encounter (statuses as of 01/22/2025) Immunizations Name Administration Dates Next Due COVID-19 [...] Telephone Encounter - Lj Kim RN - 01/22/2025 10:21 AM EST Encounter already created regarding patient. Please refer to separate encounter. * Telephone Encounter - Khadra Hurst OSA - 01/22/2025 10:02 AM EST Pt returnng call for Lj Please call her back documented in this encounter Plan of Treatment Upcoming Encounters Date Type Department Care Team (Latest Contact Info) Description 01/24/2025 11:00 AM EST Office Visit Hematology/Oncolog y [facility] [place] [address] [place] [address] Marquis Christiansen MD [address] [place] [address] 01/30/2025 2:00 PM EDT Office Visit Gastroenterology, [facility] [place] [address] Rosendo Alcantara CRNP [address] [place] [address] 02/04/2025 12:00 PM EDT [facility] [address] [place] [phone] [facility] [address] [place] [address] 02/05/2025 9:30 AM EDT Pharmacy Pharmacy Hematology Oncology [facility] [place] [address] [place] [address] [facility], [facility] Hem/Onc [address] [place] [address] 02/05/2025 11:30 AM EDT Immunization/Inject ion Hematology/Oncolog y Treatment, [place] [address] [place] [address] Nimo, Chair 10 Hem Onc Scenery [address] [place] [address] 03/04/2025 9:00 AM EDT Office Visit Orthopaedics [facility] [address] [place] [phone] Javed Salas DO [address] [place] [address] 04/01/2025 11:00 AM EDT Hospital Encounter ENDO O[facility], Endoscopy Room [facility] [address] [place] [address] Homar Padgett MD [address] [place] [address] 04/01/2025 11:00 AM EDT - 04/01/2025 12:00 PM EDT Surgery ENDO [facility], Endoscopy Room [facility] [address] [place] [phone] Homar Padgett MD [address] [place] [address] COLONOSCOPY FLEXIBLE PROXIMAL DIAGNOSTIC 06/24/2025 8:30 AM EDT Office Visit Cardiology, [facility] [address] [place] [address] Homar Ware PA-C [address] [place] [address] Scheduled Procedures Name Priority Associated Diagnoses Date/Ti [...] PCV21) 10/05/2024 10/05/2019, 08/17/2018 HbA1c 02/20/2025 08/22/2024, 2 04/2024, 08/04/2023, Additional history exists Depression Monitoring [...] Discussed due to patient's condition Care Teams Linseed Oil Order Filler Relationship Specialty Start Date End Date Rowena Banks PA-C [facility] [place] [address] PCP - General Physician Patient Registration Specialist 06/01/22 documented as of this encounter
--- OUTSIDE RECORDS SUMMARY | 2025-04-07 11:43 | External Medical Summary | Summary of Care ---
Author Name Unknown Organization [facility] Address [address] [facility] [place] [address] Phone [phone] Care Team Providers Care Drying And Winding Supervisor Name Role Phone Rowena Banks PA-C Primary Care Provider [phone] [phone] Reason for Visit * Reason Comments eRx-Medication Refill Encounter Details Date Type Department Care Team (Late st Contact Info) Description 01/11/2025 Refill Cardiology, [facility] [address] [place] [address] Homar Ware PA-C [address] [place] [address] HTN, goal below 140/90 Allergies Active Allergy [...] as of this encounter (statuses as of 01/13/2025) Medications COMBIGAN 0.2-0.5 % ophthalmic solution Instill [...] E11.9 100 Strip 11 04/15/20 22 Active Tradeasi SolutionsTouch UltraSoft LancetsIndicatio ns:Type 2 diabetes mellitus with [...] as of this encounter (statuses as of 01/13/2025) Active Problems Problem Noted Date Diagnosed Date [...] as of this encounter (statuses as of 01/13/2025) Resolved Problems Problem Noted Date Diagnosed Date [...] as of this encounter (statuses as of 01/13/2025) Immunizations Name Administration Dates Next Due COVID-19 [...] encounter Miscellaneous Notes * Telephone Encounter - Tre Johnson, [facility] - 01/13/2025 4:30 PM ESTRefused Prescriptions: Disp Refills hydroCHLOROthiazide 12.5 MG Oral Capsule 90 Cap*0 Sig: TAKE 1 CAPSULE BY MOUTH EVERY MORNINGRefused By: Dilan JOHNSON for Refusal: Refill Not AppropriateReason for Refusal Comment: medication stopped 08/23/24 * Telephone Encounter - Tre Johnson RPh - 01/13/2025 4:28 PM EST Medication stopped per 08/23/2024 encounter. Thank you, Tre Johnson, PharmD Clinical Pharmacist [facility] [phone] 01/13/2025, 4:29 PM documented in this encounter Plan of Treatment Upcoming Encounters Date Type Department Care Team (Latest Contact Info) Description 01/21/2025 11:45 AM EST Imaging Radiology [address] [place] [address] 01/21/2025 1:00 PM EST Imaging Radiology [address] [place] [address] 01/24/2025 11:00 AM EST Office Visit Hematology/Onco logy Patrick Suero [place] [address] [place] [phone] Marquis Christiansen MD [address] [place] [address] 02/04/2025 12:00 PM EDT Laboratory Laboratory, Brigid Cruz [address] [place] [phone] Mavis Rainey [address] [place] [address] 02/05/2025 9:30 AM EDT Pharmacy Pharmacy Hematology Oncology [facility] [address] [place] [facility] [place] [address] [facility], [facility] Hem/Onc [address] [place] [facility] [place] [address] 02/05/2025 11:30 AM EDT Immunization/Inj ection Hematology/Onco logy Treatment, [place] [address] [place] [phone] Nimo, Chair 10 Hem Onc Scenery [address] [place] [address] 03/04/2025 9:00 AM EDT Office Visit Orthopaedics [facility] [address] [place] [address] Javed Salas DO [address] [place] [phone] 04/01/2025 1:00 PM EDT Hospital Encounter ENDO OSS[facility], Endoscopy Room [facility] [address] [place] [phone] Amilcar Duran MD [address] [place] [address] 04/01/2025 1:00 PM EDT - 04/01/2025 1:30 PM EDT Surgery ENDO [facility], Endoscopy Room [facility] [address] [place] [address] Amilcar Duran MD [address] [place] [address] ESOPHAGOGASTRODUODENOSCOPY (EGD), FLEXIBLE, TRANSORAL, DIAGNOSTIC 06/24/2025 8:30 AM EDT Office Visit Cardiology, [facility] [address] [place] [address] Homar Ware PA-C [address] [place] [address] Scheduled Procedures Name Priority Associated Diagnoses Date/Ti [...] as of this encounter Visit Diagnoses Diagnosis HTN, goal below 140/90 Unspecified essential hypertension [...] Discussed due to patient's condition Care Teams Drying And Winding Supervisor Relationship Specialty Start Date End Date Rowena Banks PA-C [address] [place] [address] PCP - General Physician Underground Miner 06/01/22 documented as of this encounter
--- OUTSIDE RECORDS SUMMARY | 2025-04-07 11:43 | External Medical Summary | Summary of Care ---
Author Name Unknown Organization [facility] Address [address] [facility] [address] Phone [phone] Care Team Providers Care Sports Book Writer Name Role Phone Rowena Bonilla PA-C Primary Care Provider [phone] [phone] Reason for Visit * Reason Onset Date Comments Medication Refill 01/12/2025 Encounter Details Date Type Department Care Team (Late st Contact Info) Description 01/12/2025 Refill [facility] [address] [facility] [place] [address] Christine Massey, DO [address] [place] [address] Type 2 diabetes mellitus with hemoglobin A1c goal of less than 7.0% ([facility]) Allergies Active Allergy Reactions Criticality Noted Date [...] as of this encounter (statuses as of 01/15/2025) Medications COMBIGAN 0.2-0.5 % ophthalmic solution Instill [...] tablet) before bedtime. 60 Tablet 5 5 2:12 PM EST 08/27/20 24 Active Gabapentin [...] sugar). 100 Each 5 01/14/20 25 Active OneTouch Verio In Vitro Strip (Glucose Blood)Indication s:Type 2 diabetes mellitus with hemoglobin A1c goal of less than 7.0% (HCC) Use up to 2 times a day E11.9 100 Strip 11 04/15/20 22 025 Discontin ued(Refil l) OneTouch UltraSoft LancetsIndicatio ns:Type 2 diabetes mellitus with hemoglobin A1c goal of less than 7.0% (HCC) Use as directed 2 times a day as needed for Hyperglycemia (high sugar) or Hypoglycemia (low sugar). 100 Each 1 04/15/20 22 025 Discontin ued(Refil l) Hospital, Clinic, or Other Facility Administered Medication Ordered Dose Route Frequency Start Date End Date Status albuterol sulfate (PROVENTIL) (2.5 MG/3ML) 0.083% inhalation solution 2.5 mgIndications:Restrictive lung disease,SOB (shortness of breath) 2.5 mg NEBULIZER Q4H PRN 11/07/2017 Act roe documented as of this encounter (statuses as of 01/15/2025) Active Problems Problem Noted Date Diagnosed Date [...] as of this encounter (statuses as of 01/15/2025) Resolved Problems Problem Noted Date Diagnosed Date [...] BITE BY CAT, RIGHT FOOT 05/04/2011 08/11/2015 Deviated nasal septum 03/26/20112015 Cough 03/22/2011 06/21/2016 [...] as of this encounter (statuses as of 01/15/2025) Immunizations Name Administration Dates Next Due COVID-19 [...] encounter Miscellaneous Notes * Telephone Encounter - Jose Martin Cueva [facility] - 01/14/2025 3:55 PM ESTSigned Prescriptions: Disp Refills OneTouch Verio In Vitro Strip (Glucose Blo*100 St*5 Sig: Use up to 2 times a day E11.9Authorizing Provider: ROWENA BONILLA User: JOSE MARTIN CUEVA OneTouch UltraSoft Lancets 100 Ea*5 Sig: Use as directed 2 times a day as needed for Hyperglycemia (high sugar) or Hypoglycemia (low sugar).Authorizing Provider: ROWENA BONILLA User: JOSE MARTIN CUEVA documented in this encounter Plan of Treatment Upcoming Encounters Date Type Department Care Team (Latest Contact Info) Description 01/21/2025 11:45 AM EST Imaging Radiology [address] [place] [address] 01/21/2025 1:00 PM EST Imaging Radiology [address], [place] [address] [place] [address] 01/24/2025 11:00 AM EST Office Visit Hematology/Onco logy Patrick Suero [place] [address] [place] [address] Marquis Christiansen MD [address] [place] [facility] [place] [address] 02/04/2025 12:00 PM EDT Laboratory [facility], [place] [facility] [address], [place] [phone] [place], Laboratory [address] [facility] [place] [address] 02/05/2025 9:30 AM EDT Pharmacy Pharmacy Hematology Oncology [facility] [address] [place] [address] [facility] Hem/Onc [address] [place] [address] 02/05/2025 11:30 AM EDT Immunization/Inj ection Hematology/Onco logy Treatment, [place] [address] [place] [phone] Nimo, Chair 10 Hem Onc Scenery 200 [place] [address] 03/04/2025 9:00 AM EDT Office Visit Orthopaedics [facility] [address] [place] [address] Javed Salas, [address] [place] [address] 04/01/2025 1:00 PM EDT Hospital Encounter ENDO [facility], Endoscopy Room [facility] [address] [place] [address] Amilcar Duran MD [address] [place] [address] 04/01/2025 1:00 PM EDT - 04/01/2025 1:30 PM EDT Surgery ENDO [facility], Endoscopy Room [facility] [address] [place] [phone] Amilcar Duran MD [address] [place] [address] ESOPHAGOGASTRODUODENOSCOPY (EGD), FLEXIBLE, TRANSORAL, DIAGNOSTIC 06/24/2025 8:30 AM EDT Office Visit Cardiology, [facility] [address] [place] [address] Homar Ware PA-C [address] [place] [address] Scheduled Procedures Name Priority Associated Diagnoses Date/Ti [...] as of this encounter Visit Diagnoses Diagnosis Type 2 diabetes mellitus with hemoglobin A1c goal of less than 7.0% (HCC) Gastroesophageal reflux disease, unspecified whether esophagitis [...] Discussed due to patient's condition Care Teams Sports Book Writer Relationship Specialty Start Date End Date Rowena Bonilla PA-C [address] [place] [address] PCP - General Physician Program Director 06/01/22 documented as of this encounter
--- OUTSIDE RECORDS SUMMARY | 2025-04-07 11:43 | External Medical Summary | Summary of Care ---
Author Name Unknown Organization [facility] Address [address] [facility] [address] Phone [phone] Care Team Providers Care Cnc Specialist Name Role Phone Rowena Banks PA-C Primary Care Provider [phone] [phone] Reason for Visit * Reason Onset Date Comments Precert Future 01/24/2025 xeloda Encounter Details Date Type Department Care Team (Late st Contact Info) Description 01/24/2025 Telephone Hematology/Oncology Treatment, [place] [address] [facility] [place] [address] Marquis Christiansen MD 200 [place] [address] Precert Future (xeloda) Allergies Active Allergy Reactions [...] hemoglobin A1c goal of less than 7.0% ([facility]) Use up to twice times [...] Additional Information Patient not taking.Reported on 01/24/2025 Abemaciclib 100 MG Oral Tablet (Verzenio)Indica tions:Malignant [...] Active Additional Information Patient taking differently:20 mg [id number], Reported on 01/24/2025 Esomeprazole Magnesium 40 MG [...] 100 Each 01/14/20 25 Active Calcium 1200 2461-7963 MG-UNIT Oral Tablet Chewable Take 1 Tablet by mouth in the morning. 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 30 Tablet 01/25/20 25 Active Hospital, Clinic, or Other Facility [...] Miscellaneous Notes * Telephone Encounter - Estela Whitlock, RN - 01/24/2025 4:52 PM EST Order received for xeloda. Forwarded order to [facility]. Education 01/30/25. Hep B labs 02/07/24. documented in this encounter Plan of Treatment Upcoming Encounters Date Type Department Care Team (Latest Contact Info) Description 01/25/2025 1:00 PM EST Pharmacy Pharmacy Hematology Oncology [facility] [address] [place] [address] [facility], [facility] Hem/Onc [address] [place] [address] 01/30/2025 11:00 AM EDT Pt Ed by Nurse Hematology/Oncolog y Patrick Suero [place] [address] [place] [address] Nimo Nurse Hem Onc Scenery [address] [place] [address] 01/30/2025 2:00 PM EDT Office Visit Gastroenterology, [facility] [address] [place] [address] Rosendo Alcantara CRNP [address] [place] [address] 02/04/2025 12:00 PM EDT Laboratory Laboratory, [place] [facility] [place] [address] [place] [address] [facility] [address] [place] [address] 02/05/2025 9:30 AM EDT Pharmacy Pharmacy Hematology Oncology [facility] [address] [place] [address] [facility], [facility] Hem/Onc [address] [place] [address] 02/05/2025 11:30 AM EDT Immunization/Inject ion Hematology/Oncolog y Treatment, [place] [address] [place] [address] Nimo, Chair 10 Hem Onc Scenery [address] [place] [address] 03/04/2025 9:00 AM EDT Office Visit Orthopaedics [facility] [address] [place] [address] Javed Salas DO [address] [place] [phone] 04/01/2025 11:00 AM EDT Hospital Encounter ENDO O[facility], Endoscopy Room [facility] [address] [place] [address] Homar Padgett MD [address] [place] [address] 04/01/2025 11:00 AM EDT - 04/01/2025 12:00 PM EDT Surgery ENDO [facility], Endoscopy [facility] [address] [place] [address] Homar Padgett MD [address] [place] [address] COLONOSCOPY FLEXIBLE PROXIMAL DIAGNOSTIC 06/24/2025 8:30 AM EDT Office Visit Cardiology, [facility] [address] [place] [address] Homar Ware PA-C [address] [place] [address] Scheduled Procedures Name Priority Associated Diagnoses Date/Ti [...] 12/10/2024, Additional history exists Colonoscopy 02/28/2028 02/27/2018, 07/2018, [...] Discussed due to patient's condition Care Teams Cnc Specialist Relationship Specialty Start Date End Date Rowena Banks PA-C [address] [place] [address] PCP - General Physician It Administrative Assistant 06/01/22 documented as of this encounter
--- OUTSIDE RECORDS SUMMARY | 2025-04-07 11:43 | External Medical Summary | Summary of Care ---
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)*; Metastasis to bone (HCC); Malignant neoplasm of upper-outer quadrant of left breast in female, estrogen receptor positive (HCC); Anxiety Allergies Active Allergy Reactions Criticality Noted Date [...] Active Additional Information Patient taking differently:20 mg [id number], Reported on 01/24/2025 Esomeprazole Magnesium 40 MG [...] Each 5 01/14/20 25 Active Calcium 1200 6069-5586 MG-UNIT Oral Tablet Chewable Take 1 Tablet [...] Sign Reading Time Taken Comments Blood Pressure 131/78 01/24/2025 11:12 AM EST Pulse 80 01/24/2025 11:12 AM EST Temperature 36.9 °C (98.4 °F) 01/24/2025 11:[address] Respiratory Rate - - Oxygen Saturation 90% 01/24/2025 11:12 AM EST Inhaled Oxygen Concentration - - Weight 98.9 kg (218 lb) 01/24/2025 11:12 AM EST Height - - Body Mass Index 37.42 01/07/2025 12:46 PM EST documented in this encounter Progress Notes * Marquis Christiansen MD - 01/24/2025 11:00 AM EST Hematology/Oncology Outpatient Clinic note Silvino Nguyen [address] [place] [address] Name: Sarah Burgos Date: 12/24/2024 CHIEF COMPLAINT: Sarah Burgos is a 69 year old female here today for f/u visit today. HEMATOLOGY/ONCOLOGY DIAGNOSIS: Left breast cancer, invasive carcinoma no special type, high grade, ER positive (moderate) in 60% malignant cells, WA weakly positive in 30% of malignamt cells, Her2/Vance--> negative by FISH Imaging study showed 8 x 8 x 10 mm tumor -left axillary lymph yung enlargement, biopsy from that confirmed metastatic breast cancer ultrasound measuring 1.6 x 0.8 x 0.7 cm. Genetic Clinic evaluation (08/2020) --> negative for known 20 mutations. Left upper extremity lymphedema. - multiple bone metastasis (01/2024) - ER weekly positive in 50% of malignant cells, WA moderately positive in 50 % malignant cells, [...] metastasis in 01/2024. Faslodex and Abemaciclib combination.( 03/28/2024--01/2025) discontinued because of disease progression in the bones and could not tolerate Abemacilcib lately CURRENT TREATMENT: Xgeva every 4 weeks (03/22/2024--) Monthly IM Vitamin B12 1,000 mcg Planning start Capecitabine 800 mg/m² twice a day for 1 week followed by 1 week off DIAGNOSTIC WORKUP: She felt small lump in [...] carcinoma. -ER moderately positive in 60% cells, WA weakly positive in 30% malignamt cells -Her2/Vance [...] asthma -Hyperlipidemia -nonspecific neuromuscular symptoms, seen by traffic manager few years back, she says that she is positive for HLA B27 (November 2018) -Irritable bowel syndrome. -abdominal hernia surgery in the past -diverticulosis -discontinue smoking habit many years back, she smoked from age of 16 to 33. HISTORY OF PRESENT ILLNESS: She has come the clinic for the follow-up, overall she is not doing quite well, has some increasingdizziness, her blood pressure on lower side, she was seen by Cardiology, they have adjusted her medication with improvement of the blood pressure, no anginal chest pain, ambulates slowly, anxiety present, no bleeding from the sites, no fever, no increasing headache, current weight is around 218 lb.She says that she could not tolerate Abemacilcib lately, she says that it is worse than the chemotherapy. Past Medical History: Diagnosis Date CODIE inhibitor intolerance 11/2010 cough Allergic rhinitis seasonal Breast cancer metastasized to axillary lymph node, left (HCC) C. difficile colitis Depressive disorder, not elsewhere classified 2002 Diverticulosis 02/2018 colonoscopy 2011 colonoscopy Dyslipidemia, goal LDL below 100 Fatty liver disease, nonalcoholic Fibromyalgia Gastritis and gastroduodenitis GERD (gastroesophageal reflux disease) Glaucoma HLA B27 (HLA B27 positive) HTN, goal below 140/90 01/2010 Irritable bowel syndrome with both constipation and diarrhea Restrictive lung disease 11/2017 due to morbid obesity Vitamin D deficiency 09/2010 Past Surgical History: Procedure Laterality Date ARTHO,JAYANT,W/ROTATOR CUFF 05/28/13 Dr Louis BREAST LESION,OTHER,EXCISION Bilateral Benign @ [facility] DELIVERY 1985 - emergency COLONOSCOPY, DIAGNOSTIC (RECTUM) 03/21/2012 COLONOSCOPY FLEXIBLE PROXIMAL DIAGNOSTIC performed [facility] COLONOS[facility], DIAGNOSTIC (RECTUM) 02/27/2018 normal, repeat 10 yrs/COLONOSCOPY FLEXIBLE PROXIMAL DIAGNOSTIC performed by Amilcar Duran MD at ENDOSCOPY [facility] EGD, FLEXIBLE, DIAGNOSTIC 01/24/2014 ESOPHAGOGASTRODUODENOSCOPY (EGD), FLEXIBLE, TRANSORAL, DIAGNOSTIC performed by Shantell Brice DO at ENDOSCOPY [facility] EGD, FLEXIBLE, DIAGNOSTIC 11/07/2014 mild-mod inflammation/ESOPHAGOGASTRODUODENOSCOPY (EGD), FLEXIBLE, TRANSORAL, DIAGNOSTIC performed by Amilcar Duran MD at ENDOSCOPY [facility] EGD, FLEXIBLE, DIAGNOSTIC 07/25/2019 acid reflux / [facility] GRAFT RIB CARTILAGE TO FACE/EAR/NOS N/A 08/12/2016 GRAFT RIB CARTILAGE TO FACE performed by Shea Alexandra MD at OR [facility] INFORMATION 1996 lap HH repair INFORMATION 1997 emergency ulcer surgery INFORMATION 2000 10 hernia repairs with mesh INFORMATION 1976 ovarian cysts removed INFORMATION 1996 incidental cholecystectomy INFORMATION age 25 repair broken nose and R cheek bone IR BIOPSY 03/07/2024 L-/S-SPINE PARAVERTEBRAL FACET INJ,1 LEVEL 08/17/2023 L-/S-SPINE PARAVERTEBRAL FACET INJ, 1 LEVEL performed by Facundo Benitez DO at OR [facility] L-/S-SPINE PARAVERTEBRAL FACET INJ,1 LEVEL 10/19/2023 L-/S-SPINE PARAVERTEBRAL FACET INJ, 1 LEVEL performed by Facundo Benitez DO at OR [facility] PFT B/A 10/2014 normal RECONSTRUCTION OF NOSE/SEPTUM N/A 08/12/2016 RHINOPLASTY COMPLETE INCLUDING MAJOR SEPTAL REPAIR performed by Shea Alexandra MD at OR [facility] REMOVAL OF APPENDIX Appendectomy REMOVE TONSILS & ADENOIDS, AGE 12+ 1981 Tonsillectomy/Adenoids,12+ Y/O SACROILIAC JOINT INJECT W/GUIDANCE 09/25/2018 INJECTION SACROILIAC JOINT performed by Facundo Benitez DO at OR [facility] SACROILIAC JOINT INJECT W/GUIDANCE 06/04/2019 INJECTION SACROILIAC JOINT performed by Facundo Benitez DO at OR [facility] SACROILIAC JOINT INJECT W/GUIDANCE 12/08/2022 INJECTION SACROILIAC JOINT performed by Facundo Benitez DO at OR [facility] SKIN TISSUE REARRANGEMENT Bilateral 08/30/2023 SKIN TISSUE REARRANGEMENT performed by Kody Perez MD at [facility] SKIN TISSUE REARRANGEMENT, ADD-ON Bilateral 08/30/2023 SKIN TISSUE REARRANGEMENT, ADD-ON performed by Kody Perez MD at OR [facility] THERAPEUTIC FRACTURE OF NOSE Bilateral 08/12/2016 FRACTURE OF NASAL TURBINATES THERAPEUTIC performed by Shea Alexandra MD at OR [facility] TOTAL ABD HYSTERECTOMY W/WO REMOVAL OF TUBE(S) [...] date: 12/03/1970 Quit date: 12/03/1987 Years since quittin.1 Passive exposure: Never Smokeless tobacco: Never Vaping Use Vaping status: Never Used Substance and Sexual Activity Alcohol use: Yes Comment: rare Drug use: No Sexual activity: [...] no exercise: Walking daily diet: Low fat voodoo/bahai: [place] marital status: 2002 children: 3 gc: 8 [...] TWICE A DAY WITH BREAKFAST AND DINNER 180Tablet 1 aspirin enteric coated 81 MG TBEC [...] 200 UNIT Oral Tablet Take by mouth. Eye Multivitamin OR Capsule Take 1 Capsule [...] times a day as needed forMuscle spasms. 20 Tablet 0 Abemaciclib 100 MG Oral Tablet (Verzenio) Take 100 mg (1 tablet) by mouth in the morning and 100 mg(1 tablet) before bedtime. 60 Tablet 5 Gabapentin 100 MG Oral Capsule (Neurontin) Take [...] 1 Tablet before bedtime. 180 Tablet 3 Esomeprazole Magnesium 40 MG [...] as needed for Nausea. 30 Tablet 3 Ondansetron HCl 8 MG Oral Tablet (Zofran) Take 1 Tablet by mouth every 8 hours as needed for Nausea. 30 Tablet 3 Gabapentin 300 MG Oral Capsule (Neurontin) Take 2 Capsules by mouth at bedtime 60 Capsule 0 Montelukast Sodium 10 MG Oral Tablet (Singulair) TAKE 1 TABLET BY MOUTH EVERY MORNING 90 Tablet 3 Losartan Potassium 25 MG Oral Tablet (Cozaar) Take 0.5 Tablets by mouth daily. 45 Tablet 3 Fluticasone Propionate 50 MCG/ACT [...] or Hypoglycemia (low sugar). 100 Each 5 Current Facility-Administered Medications Medication Dose Route Frequency Provider Last Rate Last Admin albuterol sulfate (PROVENTIL) (2.5 MG/3ML) 0.083% inhalation solution 2.5 mg 2.5 mg Nebulizer Q4H PRN Stephan Simon MD 2.5 mg at 11/15/17 1121 REVIEW OF SYSTEMS: See HPI - otherwise negative OBJECTIVE: BP 131/78 (BP Site: Left Arm, BP Position: Sitting, BP Cuff Size: Large) | Pulse 80 | Temp 36.9 °C(98.4 °F) (Tympanic) | Wt 98.9 kg (218 lb) | SpO2 90% | BMI 37.42 kg/m² | BSA 2.11 m² PHYSICAL EXAM: ECOG: Performance Status 1 = 80-90% Symptoms but nearly ambulatory General Appearance: Normal - Healthy appearing patient in no acute distress Lungs/Thorax: Normal respiratory effort Pulses/Extremities: Normal - 2+ throughout and symmetrical, no edema Neurologic: Normal - Grossly intact LABS: Blood workup done on 01/07/2025: -WBC 3100, Hemoglobin and hematocrit -10.3/31.7, Platelet count of 166,000 -ANC 1800, Absolute lymphocyte count 820 -BUN/Creat: 12/1.0, normal LFT other than alkaline phosphatase of 473. Calcium level 7.5 -GGTP --> 19 which is normal ___ PET-CT scan on 01/21/2025: -1. Recurrent activity associated with disseminated sclerotic osseous metastases, some of which areincreasing in size. 2. New mildly active nodularity within a left spigelian hernia and a retrocaval lymph node may represent additional sites of disease. Associated small volume ascites. - activity in the proximal left femur measures up to 7.5 SUV and activity in the and right ilium measures up to 6.6 SUV. Some lesions have increased in size - for example, in the L1 vertebral body with 4.2 SUV. IMPRESSION/PLAN: Metastatic breast cancer to bone Dehydration Vitamin B12 deficiency Currently she is on Faslodex and Abemacilcib for the last 1 year or so, lately she is not feeling quite well, having increasing dizziness, blood pressure was on lower side with adjustment of the blood pressure medications, it has improved, still complains of more tiredness, she gets Vitamin B12 injection every monthly. Xgeva every 4 weekly Reviewed PET-CT scan done on 01/21/2025, this has progression noted mainly in the bones, back pain present, she takes gabapentin, she does not take oxycodone, she has oxycodone at home, advised him to take oxycodone few times a day or perhaps started nighttime and half the during the daytime and see how she tolerates. I would like to discontinue Faslodex and Abemacilcib at this time Talked about starting systemic chemotherapy with oral chemotherapy with Capecitabine and the she isin agreement for that. Reviewed the treatment schedule side effect profile. Planning start Capecitabine at 800 mg/m² twice a day for 1 week followed by 1 week off. She will come to chemotherapy teaching next week. Will continue Xgeva every 4 weekly as we planned dependent on her Calcium level. Advised him to increase vitamin-D and Calcium supplementation. Once we start on treatment, will see her in about [address] Marquis Christiansen Hem/Onc (This note was completed using the dictation program Fluency Direct. As such, there may be misspellings word substitutions, or other variations that should not change the essence of the clinical content of this encounter note. If there is need for further clarification, please direct questions to the provider listed above.) documented in this encounter Nursing Notes * Tameka Ibrahim MED ASSIST - 01/24/2025 11:20 AM EST Patient identifed by name and birthdate Do you have any concerns about pain management for today's visit? Yes. Patient instructed to discuss pain concerns with provider during the visit today Living Will or Advance Directive for Health Care as noted on the problem list. [facility] is a way you can talk to your provider on line through e-mail. Would you like to sign up? I can activate it for you? ALREADY ACTIVE Filed Vitals: 01/24/25 1112 BP: 131/78 Pulse: 80 Temp: 36.9 °C (98.4 °F) TempSrc: Tympanic SpO2: 90% Weight: 98.9 kg (218 lb) Patient was instructed to not get up [...] 1:00 PM EST Pharmacy Pharmacy Hematology Oncology [place] [address] [place] [address] [facility] Hem/Onc [address] [place] [address] 01/30/2025 11:00 AM EDT Pt Ed by Nurse Hematology/Oncolog y Scenery [place] [address] [place] [address] Nimo Nurse Hem Onc Scenery [address] [place] [address] 01/30/2025 2:00 PM EDT Office Visit Gastroenterology, [facility] [address] [place] [address] Rosendo Alcantara CRNP [address] [place] [address] 02/04/2025 12:00 PM EDT Laboratory Laboratory, [place] [facility] [address] [facility] [place] [phone] [place], Laboratory [address] [place] [address] 02/05/2025 9:30 AM EDT Pharmacy Pharmacy Hematology Oncology [facility] [address] [place] [address] [facility] Hem/Onc [address] [place] [address] 02/05/2025 11:30 AM EDT Immunization/Inject ion Hematology/Oncolog y Treatment, [place] [address] [place], [place] [address] Nimo, Chair 10 Hem Onc Scenery [address] [place], [place] [address] 03/04/2025 9:00 AM EDT Office Visit Orthopaedics [facility] [address] [place] [address] Javed Salas, [address] [place] [phone] 04/01/2025 11:00 AM EDT Hospital Encounter ENDO [facility], Endoscopy Room [facility] [address] [place] [phone] Homar Padgett MD [address] [place] [address] 04/01/2025 11:00 AM EDT - 04/01/2025 12:00 PM EDT Surgery ENDO [facility], Endoscopy Room [facility] [address] [place] [address] Homar Padgett MD [address] [place] [address] COLONOSCOPY FLEXIBLE PROXIMAL DIAGNOSTIC 06/24/2025 8:30 AM EDT Office Visit Cardiology, [facility] [address] [place] [address] Homar Ware, PAMarimar[facility] [address] [place] [address] Scheduled Procedures Name Priority Associated Diagnoses Date/Ti [...] metastatic to axillary lymph node (HCC)- Primary Metastasis to bone (HCC) Secondary malignant neoplasm of bone and bone marrow Malignant neoplasm of upper-outer quadrant of left breast in female, estrogen receptor positive (HCC) Anxiety Anxiety state, unspecified Gastroesophageal reflux disease, unspecified whether esophagitis [...] Discussed due to patient's condition Care Teams Burner Machine Operator Relationship Specialty Start Date End Date Rowena Banks PA-C [address] [place] [address] PCP - General Physician Psychiatrist 06/01/22 documented as of this encounter"
--- OUTSIDE RECORDS SUMMARY | 2025-04-07 11:43 | External Medical Summary | Summary of Care ---
Author Name Unknown Organization [facility] Address [address] [facility] [place] [address] Phone [phone] Care Team Providers Care Venetian Blind Machine Operator Name Role Phone Rowena Banks PA-C Primary Care Provider [phone] Reason for Visit * Reason Onset Date Comments Appointment 01/17/2025 Encounter Details Date Type Department Care Team (Late st Contact Info) Description 01/17/2025 Telephone Gastroenterology, [facility] [address] [place] [address] Amilcar Duran MD [address] [place] [address] Appointment Allergies Active Allergy Reactions Criticality Noted [...] as of this encounter (statuses as of 01/17/2025) Medications COMBIGAN 0.2-0.5 % ophthalmic solution Instill [...] as of this encounter (statuses as of 01/17/2025) Active Problems Problem Noted Date Diagnosed Date [...] as of this encounter (statuses as of 01/17/2025) Resolved Problems Problem Noted Date Diagnosed Date [...] as of this encounter (statuses as of 01/17/2025) Immunizations Name Administration Dates Next Due COVID-19 [...] Telephone Encounter - Quin Hoyt OSA - 01/17/2025 10:29 AM EST Lmm to r/s procedure from 04/01/25 REMBERTO Lugo 01/17/2025 10:29 AM documented in this encounter Plan of Treatment Upcoming Encounters Date Type Department Care Team (Latest Contact Info) Description 01/21/2025 11:45 AM EST Imaging Radiology [address] [place] [address] 01/21/2025 1:00 PM EST Imaging Radiology [address] [place] [address] 01/24/2025 11:00 AM EST Office Visit Hematology/Oncolog y Patrick Suero [place] [address] [place] [phone] Marquis Christiansen MD [address] [place] [address] 02/04/2025 12:00 PM EDT [facility] [address] [place] [phone] [facility] [address] [place] [address] 02/05/2025 9:30 AM EDT Pharmacy Pharmacy Hematology Oncology [facility] [address] [place] [address] [facility] Hem/Onc [address] [place] [address] 02/05/2025 11:30 AM EDT Immunization/Inject ion Hematology/Oncolog y Treatment, [place] [address] [place] [phone] Nimo, Chair 10 Hem Onc Scenery [address] [place] [address] 03/04/2025 9:00 AM EDT Office Visit Orthopaedics [facility] [place] [address] [place] [phone] Javed Salas, [address] [place] [address] 04/01/2025 11:00 AM EDT Hospital Encounter ENDO [facility], Endoscopy Room [facility] [address] [place] [address] Homar Padgett MD [address] [place] [address] 04/01/2025 11:00 AM EDT - 04/01/2025 12:00 PM EDT Surgery ENDO [facility], Endoscopy Room [facility] [address] [place] [phone] Homar Padgett MD [address] [place] [address] COLONOSCOPY FLEXIBLE PROXIMAL DIAGNOSTIC 06/24/2025 8:30 AM EDT Office Visit Cardiology, [facility] [place] [address] [place] [address] Homar Ware PA-C [address] [place] [address] Scheduled Procedures Name Priority Associated Diagnoses Date/Ti [...] Discussed due to patient's condition Care Teams Venetian Blind Machine Operator Relationship Specialty Start Date End Date Rowena Banks PA-C [address] [facility] [place] [address] PCP - General Physician Computer Help Desk Specialist 06/01/22 documented as of this encounter
--- OUTSIDE RECORDS SUMMARY | 2025-04-07 11:43 | External Medical Summary | Summary of Care ---
Author Name Unknown Organization [facility] Address [address] [facility] [place] [address] Phone [phone] Care Team Providers Care Solutions Engineer Name Role Phone Rowena Banks PA-C Primary Care Provider [phone] Encounter Details Date Type Department Care Team (Late st Contact Info) Description 01/25/2025 Orders Only Hematology/Oncology [facility] [place] [address] [place] [phone] Marquis Christiansen MD [address] [place] [address] Allergies Active Allergy Reactions Criticality Noted Date [...] goal of less than 7.0% ([facility]) Use up to twice times a [...] Active Additional Information Patient taking differently:20 mg [id number], Reported on 01/24/2025 Esomeprazole Magnesium 40 MG [...] 100 Each 5 01/14/20 Active Calcium 1200 2163-0438 MG-UNIT Oral Tablet Chewable Take 1 Tablet by mouth in the morning. 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 30 Tablet 01/25/20 Active Hospital, Clinic, or Other Facility Administered [...] 1:00 PM EST Pharmacy Pharmacy Hematology Oncology [address] [address] [facility], [facility] Hem/Onc [address] [place] [address] Malignant neoplasm of upper-outer quadrant of left breast in female, estrogen receptor positive (HCC)* 01/30/2025 11:00 AM EDT Pt Ed by Nurse Hematology/Oncolog y Scenery [place] [address] [place] [address] Nurse Nimo Hem Onc [facility] [address] [facility] [place] [address] 01/30/2025 1:30 PM EDT Pharmacy Pharmacy Hematology Oncology [address] [address] [facility], [facility] Hem/Onc [address] [place] [address] 01/30/2025 2:00 PM EDT Office Visit Gastroenterology, [facility] [address] Rosendo Alcantara CRNP [address] [facility] [address] 02/04/2025 12:00 PM EDT Laboratory Laboratory, [address] [place] [phone] Mavis Rainey [address] [place] [address] 02/05/2025 11:30 AM EDT Immunization/Inject ion Hematology/Oncolog y Treatment, [place] [address] [place] [address] Nimo, Chair 10 Hem Onc Scenery [address] [place] [address] 03/04/2025 9:00 AM EDT Office Visit Orthopaedics [facility] [address] [place] [phone] Javed Salas DO [address] [place] [address] 04/01/2025 11:00 AM EDT Hospital Encounter ENDO [facility], Endoscopy Room [facility] [address] [place] [phone] Homar Padgett MD [address] [place] [address] 04/01/2025 11:00 AM EDT - 04/01/2025 12:00 PM EDT Surgery ENDO [facility], Endoscopy Room [facility] [address] [place] [phone] Homar Padgett MD [address] [place] [address] COLONOSCOPY FLEXIBLE PROXIMAL DIAGNOSTIC 06/24/2025 8:30 AM EDT Office Visit Cardiology, [facility] [address] [place] [address] Homar Ware PA-C [address] [place] [address] Scheduled Procedures Name Priority Associated Diagnoses Date/Ti [...] PCV21) 10/05/2024 10/05/2019, 08/17/2018 HbA1c 02/20/2025 08/22/2024, 022 04/2024, 08/04/2023, Additional history exists Depression Monitoring [...] Discussed due to patient's condition Care Teams Solutions Engineer Relationship Specialty Start Date End Date Rowena Banks PA-C [address] [place] [address] PCP - General Physician Help Desk Team Leader 06/01/22 documented as of this encounter
--- OUTSIDE RECORDS SUMMARY | 2025-04-07 11:44 | External Medical Summary | Summary of Care ---
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 180 Tablet 3 06/04/20 24 Active Fluticasone Propionate 50 MCG/ACT Nasal Suspension (Flonase)Indicat ions:Dysfunction of Eustachian tube, bilateral Administer 2 Sprays into each nostril daily as needed for Congestion. 48 mL 1 07/24/20 24 Active Cyclobenzaprine HCl 10 MG Oral [...] MORNING 90 Tablet 3 01/09/20 25 Active Hospital, Clinic, or Other Facility Administered Medication Ordered Dose Route Frequency Start Date End Date Status albuterol sulfate (PROVENTIL) (2.5 MG/3ML) 0.083% inhalation solution 2.5 mgIndications:Restrictive lung disease,SOB (shortness of breath) 2.5 mg NEBULIZER Q4H PRN 11/07/2017 Act roe documented as of this encounter (statuses as of 01/09/2025) Active Problems Problem Noted Date Diagnosed Date [...] as of this encounter (statuses as of 01/09/2025) Resolved Problems Problem Noted Date Diagnosed Date [...] as of this encounter (statuses as of 01/09/2025) Immunizations Name Administration Dates Next Due COVID-19 [...] Description 01/21/2025 11:45 AM EST Imaging Radiology [address] [place] [address] 01/21/2025 1:00 PM EST Imaging Radiology [address] [place] [address] 01/24/2025 11:00 AM EST Office Visit Hematology/Onco logy Patrick Suero [place] [address] [place] [address] Marquis Christiansen MD [address] [facility] [address] 02/04/2025 12:00 PM EDT Laboratory [facility] [place] [facility] [address] [facility] [place] [phone] [place], [facility] [address] [facility] [address] 02/05/2025 9:30 AM EDT Pharmacy Pharmacy Hematology Oncology [address] [facility], [facility] Hem/[place] [facility] [place] [address] 02/05/2025 11:30 AM EDT Immunization/Inj ection Hematology/Onco logy Treatment, [place] [address] [place], [place] [address] Nimo, Chair 10 Hem Onc Scenery [address] [place], [place] [address] 03/04/2025 9:00 AM EDT Office Visit Orthopaedics [facility] [address] [place] [address] Javed Salas, [address] [place] [address] 04/01/2025 1:00 PM EDT Hospital Encounter ENDO [facility], Endoscopy Room [facility] [address] [place] [phone] Amilcar Duran MD [address] [place] [address] 04/01/2025 1:00 PM EDT - 04/01/2025 1:30 PM EDT Surgery ENDO [facility], Endoscopy Room [facility] [address] [place] [address] Amilcar Duran MD [address] [place] [address] ESOPHAGOGASTRODUODENOSCOPY (EGD), FLEXIBLE, TRANSORAL, DIAGNOSTIC 06/24/2025 8:30 AM EDT Office Visit Cardiology, [facility] [address] [place] [address] Homar Ware PA-C [address] [place] [address] Scheduled Procedures Name Priority Associated Diagnoses Date/Ti [...] Not on filedocumented as of this encounter Results * 25-HYDROXY VITAMIN D (01/07/2025 7:57 AM EST) 25-Hydroxy Vitamin D 23 >19 ng/mL 01/08/2025 10:17 AM EST LABORATORY [facility] Blood Venous blood specimen / Unknown 01/07/2025 7:57 AM EST 01/07/2025 1:31 PM EST Narrative [facility] [place] 01/08/2025 10:17 AM EST Deficient: <20 ng/mL Insufficient: 20-29 ng/mL Recommended/Optimum:30-50 ng/mL Vitamin D intoxication is rare. If suspicious of Vitamin D toxicity, evaluation of serum Calcium and PTH is recommended. us Marquis Christiansen MD LAB BLOOD ORDERABLES Final Res ult [facility] [address] [facility] [place] [address] documented in this encounter Visit Diagnoses Diagnosis 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)- Primary Gastroesophageal reflux disease, unspecified whether [...] Discussed due to patient's condition Care Teams Able Bodied Watchman Relationship Specialty Start Date End Date Rowena Banks PA-C [address] [place] [address] PCP - General Physician Medical Billing And Coding Instructor 06/01/22 documented as of this encounter
--- OUTSIDE RECORDS SUMMARY | 2025-04-07 11:44 | External Medical Summary | Summary of Care ---
Author Name Unknown Organization [facility] Address [address] [place] [facility] [place] [address] Phone [phone] Care Team Providers Care Solar Pv Installer Name Role Phone Rowena Banks PA-C Primary Care Provider +1 [phone] Reason for Visit * Reason Onset Date Comments Test Results 01/09/2025 Encounter Details Date Type Department Care Team (Late st Contact Info) Description 01/09/2025 Telephone Hematology/Oncology [facility] Nimo [place] [address] [facility] [address] Services, Scheduling [address] [place] [address] Test Results Allergies Active Allergy Reactions Criticality Noted Date [...] a day E11.9 1 Kit 022 Active OneTouch Verio In Vitro Strip (Glucose Blood)Indicatio ns:Type 2 diabetes mellitus with hemoglobin A1c goal of less than 7.0% (HCC) Use up to 2 times a day E11.9 100 Strip 11 022 Active OneTouch UltraSoft LancetsIndicati ons:Type 2 diabetes mellitus with hemoglobin A1c goal of less than 7.0% (HCC) Use as directed 2 times a day as needed for Hyperglycemia (high sugar) or Hypoglycemia (low sugar). 100 Each 1 022 Active Albuterol Sulfate HFA 108 (90 [...] evening meals. 180 Tablet 3 024 Active Fluticasone Propionate 50 MCG/ACT Nasal Suspension (Flonase)Indica tions:Dysfuncti on of Eustachian tube, bilateral Administer 2 Sprays into each nostril daily as needed for Congestion. 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 60 Tablet 5 5 2:12 PM EST 024 Active Gabapentin 100 MG Oral Capsule [...] MORNING 90 Tablet 2 024 2024 Discontinued Hospital, Clinic, or Other [...] Telephone Encounter - Loi Bess OSA - 01/09/2025 12:57 PM EST Appointments changed. Patient aware * Telephone Encounter - Lj Kim RN - 01/09/2025 12:30 PM EST Scheduling- please move up patients appointment for PET CT to next 1-2 weeks and schedule appointment with Dr. Christiansen 2-3 days after (ok to overbook per Dr. Christiansen). Pt will need notified of new apt dates and times. * Telephone Encounter - Marquis Christiansen MD - 01/09/2025 12:07 PM EST I agree about getting PET-CT in the next 2 weeks' time and then an appointment with me. ( can overbook). * Telephone Encounter - Lj Kim RN - 01/09/2025 11:49 AM EST I called patient and informed her of the results. She states that she has been having worsening back pain and rib pain. No new falls, fractures, etc that she knows of. She is taking an appropriate amount of Vit D and Calcium supplementation daily and I reviewed our recommendations with the patient on the phone. Dr. Christiansen - would you like to move her PET CT up given the increasing back/rib pain? * Telephone Encounter - Marquis Christiansen MD - 01/09/2025 11:34 AM EST I reviewed her blood workup done on 12/28/2023: -normal kidney function, normal LFT other than alkaline phosphatase gradually increasing to around 473 -GGTP--> 19 which is in normal range. -WBC count 3100, Hemoglobin and hematocrit -10.3/39.7, Platelet count of [id number] Slightly low white blood cell count hemoglobin level is noted and expected with the ongoing treatment. Elevated alkaline phosphatase with normal GGT suggest perhaps high alkaline phosphatase related to the bone. I checked Vitamin D level which is 23 with a is close to the lower limit of normal but not significantly low. Last PET-CT scan done in mid- October 2024 showed stable bone lesions without any metabolic activity. Does she have any bone pain at any site, any fracture, any fall, any bony injury? If none, we could consider getting PET-CT scan in the next 2 to 3 weeks ( sooner than previous timeline). She should continue take vitamin-D and Calcium supplementation on a regular basis. What dose of vitamin-D is she on? * Telephone Encounter - Lj Kim RN - 01/09/2025 11:[address] Christiansen- please review lab results. Thank you. * Telephone Encounter - Alana Moulton OSA - 01/09/2025 10:07 AM EST Sarah called asking to speak with Dr. Christiansen or a nurse in regards to lab test results Please call her back thank you documented in this encounter Plan of Treatment Upcoming Encounters Date Type Department Care Team (Latest Contact Info) Description 01/21/2025 11:45 AM EST Imaging Radiology [address] [place] [address] 01/21/2025 1:00 PM EST Imaging Radiology [address] [place] [address] 01/24/2025 11:00 AM EST Office Visit Hematology/Onco logy Patrick Suero [place] [address] [place] [address] Marquis Christiansen MD [address] [place] [address] 02/04/2025 12:00 PM EDT Laboratory Laboratory, Brigid Cruz [address] [place] [phone] Mavis Rainey [address] [place] [address] 02/05/2025 9:30 AM EDT Pharmacy Pharmacy Hematology Oncology [facility] [address] [facility] [place] [address] [facility] Hem/Onc [address] [facility] [place] [address] 02/05/2025 11:30 AM EDT Immunization/Inj ection Hematology/Onco logy Treatment, [place] [address] [place] [phone] Nimo, Chair 10 Hem Onc Scenery [address] [place] [address] 03/04/2025 9:00 AM EDT Office Visit Orthopaedics [facility] [address] [place] [phone] Javed Salas DO [address] [place] [phone] 04/01/2025 1:00 PM EDT Hospital Encounter ENDO [facility], Endoscopy Room [facility] [address] [place] [phone] Amilcar Duran MD [address] [place] [address] 04/01/2025 1:00 PM EDT - 04/01/2025 1:30 PM EDT Surgery ENDO [facility], Endoscopy Room [facility] [address] [place] [address] Amilcar Duran MD [address] [place] [address] ESOPHAGOGASTRODUODENOSCOPY (EGD), FLEXIBLE, TRANSORAL, DIAGNOSTIC 06/24/2025 8:30 AM EDT Office Visit Cardiology, [facility] [address] [place] [address] Homar Ware PA-C [address] [place] [address] Scheduled Procedures Name Priority Associated Diagnoses Date/Ti [...] Discussed due to patient's condition Care Teams Solar Pv Installer Relationship Specialty Start Date End Date Rowena Banks PA-C [facility] [place] [address] PCP - General Physician Rubble Placer 06/01/22 documented as of this encounter
--- OUTSIDE RECORDS SUMMARY | 2025-04-07 11:44 | External Medical Summary | Summary of Care ---
Author Name Unknown Organization [facility] Address [address] [facility] [place] [address] Phone [phone] Care Team Providers Care Commissary Production Supervisor Name Role Phone Rowena Banks PA-C Primary Care Provider +1 -[phone] Reason for Visit * Reason Comments eRx-Medication Refill Encounter Details Date Type Department Care Team (Late st Contact Info) Description 01/11/2025 Refill [facility] Mariana Jones [address] [place] [phone] Nathanael Carter MD [address] [place] [address] Dysfunction of Eustachian tube, bilateral Allergies Active [...] mouth daily. 45 Tablet 3 025 Active Fluticasone Propionate 50 MCG/ACT Nasal Suspension (Flonase)Indica tions:Dysfuncti on of Eustachian tube, bilateral USE 2 SPRAYS IN EACH NOSTRIL ONCE DAILY IF NEEDED FOR CONGESTION 48 g 1 025 Active Fluticasone Propionate 50 MCG/ACT Nasal Suspension (Flonase)Indica tions:Dysfuncti on of Eustachian tube, bilateral Administer 2 Sprays into each nostril daily as needed for Congestion. 48 mL 1 024 2024 Discontinued Hospital, Clinic, or Other [...] Miscellaneous Notes * Telephone Encounter - Cassandra Ozuna [facility] - 01/12/2025 9:17 AM ESTSigned Prescriptions: Disp Refills Fluticasone Propionate 50 MCG/ACT Nasal [place]aly*48 g 1 Sig: USE 2 SPRAYS IN EACH NOSTRIL ONCE DAILY IF NEEDED FOR CONGESTIONAuthorizing Provider: Bernie CARTER User: CASSANDRA OZUNA documented in this encounter Plan of Treatment Upcoming Encounters Date Type Department Care Team (Latest Contact Info) Description 01/21/2025 11:45 AM EST Imaging Radiology [address] [place] [address] 01/21/2025 1:00 PM EST Imaging Radiology [address] [place] [address] 01/24/2025 11:00 AM EST Office Visit Hematology/Onco logy Patrick Suero [place] [address] [place] [phone] Marquis Christiansen MD [address] [place] [address] 02/04/2025 12:00 PM EDT Laboratory Laboratory, Brigid Cruz [address] [place] [phone] Mavis Rainey [address] [place] [address] 02/05/2025 9:30 AM EDT Pharmacy Pharmacy Hematology Oncology [facility] [place] [address] [place] [address] [place], [facility] Hem/Onc [address] [place] [facility] [place] [address] 02/05/2025 11:30 AM EDT Immunization/Inj ection Hematology/Onco logy Treatment, [place] [address] [place] [facility] [place] [address] Nimo, Chair 10 Hem Onc Scenery [address] [place] [address] 03/04/2025 9:00 AM EDT Office Visit Orthopaedics [facility] [address] [place] [phone] Javed Salas DO [address] [place] [address] 04/01/2025 1:00 PM EDT Hospital Encounter ENDO [facility], Endoscopy Room [facility] [address] [place] [phone] Amilcar Duran MD [address] [place] [address] 04/01/2025 1:00 PM EDT - 04/01/2025 1:30 PM EDT Surgery ENDO [facility], Endoscopy Room [facility] [address] [place] [phone] Amilcar Duran MD [address] [place] [address] ESOPHAGOGASTRODUODENOSCOPY (EGD), FLEXIBLE, TRANSORAL, DIAGNOSTIC 06/24/2025 8:30 AM EDT Office Visit Cardiology, [facility] [address] [place] [address] Homar Ware PA-C [address] [place] [address] Scheduled Procedures Name Priority Associated Diagnoses Date/Ti [...] (Patient Declined After Education) GFR 01/07/2026 01/07/2025, 02/01/2025, 12/10/2024, Additional history exists Colonoscopy 02/28/2028 02/27/2018, [...] Discussed due to patient's condition Care Teams Commissary Production Supervisor Relationship Specialty Start Date End Date Rowena Banks PA-C [address] [place] [address] PCP - General Physician Load Planner 06/01/22 documented as of this encounter
--- OUTSIDE RECORDS SUMMARY | 2025-04-07 11:44 | External Medical Summary | Summary of Care ---
Author Name Unknown Organization [facility] Address [address] [facility] [place] [address] Phone [phone] Care Team Providers Care Web Communications Specialist Name Role Phone Rowena Banks PA-C Primary Care Provider +1 -[phone] Reason for Visit * Reason Onset Date Comments Test Results 01/09/2025 Encounter Details Date Type Department Care Team (Late st Contact Info) Description 01/09/2025 Telephone Hematology/Oncology [facility] Nimo [place] [address] [facility] [address] Services, Scheduling [address] [place] [address] Test Results Allergies Active Allergy Reactions Criticality [...] Hemoglobin and hematocrit -10.3/39.7, Platelet count of 717670 Slightly low white blood cell count hemoglobin [...] is she on? * Telephone Encounter - jL Kim RN - 01/09/2025 11:03 AM EST [...] Description 01/21/2025 11:45 AM EST Imaging Radiology [address] [place] [phone] 01/21/2025 1:00 PM EST Imaging Radiology [address] [place] [address] 01/24/2025 11:00 AM EST Office Visit Hematology/Onco logy Patrick Suero [place] [address] [place] [address] Marquis Christiansen MD [address] [place] [address] 02/04/2025 12:00 PM EDT Laboratory Laboratory, Brigid Cruz [address] [place] [phone] Mavis Rainey [address] [place] [address] 02/05/2025 9:30 AM EDT Pharmacy Pharmacy Hematology Oncology [facility] [address] [facility] [place] [address] [facility], [facility] Hem/Onc [address] [place] [address] 02/05/2025 11:30 AM EDT Immunization/Inj ection Hematology/Onco logy Treatment, [place] [address] [place] [phone] Nimo, Chair 10 Hem Onc Scenery [address] [place] [address] 03/04/2025 9:00 AM EDT Office Visit Orthopaedics [facility] [address] [place] [phone] Javed Salas DO [address] [place] [phone] 04/01/2025 1:00 PM EDT Hospital Encounter ENDO [facility], Endoscopy Room [facility] [address] [place] [phone] Amilcar Duran MD [address] [place] [address] 04/01/2025 1:00 PM EDT - 04/01/2025 1:30 PM EDT Surgery ENDO [facility], Endoscopy Room [facility] [address] [place] [address] Amilcar Duran MD [address] [place] [address] ESOPHAGOGASTRODUODENOSCOPY (EGD), FLEXIBLE, TRANSORAL, DIAGNOSTIC 06/24/2025 8:30 AM EDT Office Visit Cardiology, [facility] [address] [place] [address] Homar Ware PA-C [address] [place] [address] Scheduled Procedures Name Priority Associated Diagnoses Date/Ti [...] Discussed due to patient's condition Care Teams Web Communications Specialist Relationship Specialty Start Date End Date Rowena Banks PA-C [facility] [place] [address] PCP - General Physician Recreational Vehicle Resort Manager 06/01/22 documented as of this encounter
--- OUTSIDE RECORDS SUMMARY | 2025-04-07 11:44 | External Medical Summary | Summary of Care ---
Author Name Unknown Organization [facility] Address [address] [place] [facility] [place] [address] Phone [phone] Care Team Providers Care Spud Grader Name Role Phone Rowena Banks PA-C Primary Care Provider [phone] -[phone] Reason for Visit * Reason Onset Date Comments Test Results 01/09/2025 Encounter Details Date Type Department Care Team (Late st Contact Info) Description 01/09/2025 Telephone Hematology/Oncology [facility] Nimo [place] [address] [facility] [address] Services, Scheduling [address] [place] [address] Test Results Allergies Active Allergy Reactions Criticality [...] Hemoglobin and hematocrit -10.3/39.7, Platelet count of 793659 Slightly low white blood cell count hemoglobin [...] 01/21/2025 11:45 AM EST Imaging Radiology [address] [place] [address] 01/21/2025 1:00 PM EST Imaging Radiology [address] [place] [address] 01/24/2025 11:00 AM EST Office Visit Hematology/Onco logy Partick Suero [place] [address] [place] [address] Marquis Christiansen MD [address] [place] [address] 02/04/2025 12:00 PM EDT Laboratory Laboratory, Brigid Cruz [address] [place] [phone] Mavis Rainey [address] [place] [address] 02/05/2025 9:30 AM EDT Pharmacy Pharmacy Hematology Oncology [facility] [address] [facility] [place] [address] [facility] Hem/Onc [address] [facility] [place] [address] 02/05/2025 11:30 AM EDT Immunization/Inj ection Hematology/Onco logy Treatment, [place] [address] [place] [phone] Nimo, Chair 10 Hem Onc Scenery [address] [place] [address] 03/04/2025 9:00 AM EDT Office Visit Orthopaedics [facility] [address] [place] [phone] Javed Salas DO [address] [place] [phone] 04/01/2025 1:00 PM EDT Hospital Encounter ENDO OSSC, Endoscopy Room [facility] [address] [place] [phone] Amilcar Duran MD [address] [place] [address] 04/01/2025 1:00 PM EDT - 04/01/2025 1:30 PM EDT Surgery ENDO [facility], Endoscopy Room [facility] [address] [place] [address] Amilcar Duran MD [address] [place] [address] ESOPHAGOGASTRODUODENOSCOPY (EGD), FLEXIBLE, TRANSORAL, DIAGNOSTIC 06/24/2025 8:30 AM EDT Office Visit Cardiology, [facility] [address] [place] [address] Homar Ware PA-C [address] [place] [address] Scheduled Procedures Name Priority Associated Diagnoses Date/Ti [...] Discussed due to patient's condition Care Teams Spud Grader Relationship Specialty Start Date End Date Rowena Banks PA-C [facility] [place] [address] PCP - General Physician Dramatic Agent 06/01/22 documented as of this encounter
--- OUTSIDE RECORDS SUMMARY | 2025-04-07 11:44 | External Medical Summary | Summary of Care ---
Author Name Unknown Organization [facility] Address [address] [facility] [place] [address] Phone [phone] Care Team Providers Care Grocery Clerk Marking Name Role Phone Rowena Banks PA-C Primary Care Provider [phone] [phone] Reason for Visit * Reason Onset Date Comments Test Results 01/09/2025 Encounter Details Date Type Department Care Team (Late st Contact Info) Description 01/09/2025 Telephone Hematology/Oncology [facility] Nimo [place] [address] [facility] [address] Services, Scheduling [address] [place] [address] Test Results Allergies Active Allergy Reactions Criticality [...] Hemoglobin and hematocrit -10.3/39.7, Platelet count of 620825 Slightly low white blood cell count hemoglobin [...] Description 01/21/2025 11:45 AM EST Imaging Radiology [address] [place] [address] 01/21/2025 1:00 PM EST Imaging Radiology [address] [place] [address] 01/24/2025 11:00 AM EST Office Visit Hematology/Onco logy Patrick Suero [place] [address] [place] [address] Marquis Christiansen MD [address] [place] [address] 02/04/2025 12:00 PM EDT Laboratory Laboratory, Brigid Cruz [address] [place] [phone] Mavis Rainey [address] [place] [address] 02/05/2025 9:30 AM EDT Pharmacy Pharmacy Hematology Oncology [facility] [address] [place] [address] [facility], [facility] Hem/Onc [address] [facility] [place] [address] 02/05/2025 11:30 AM EDT Immunization/Inj ection Hematology/Onco logy Treatment, [place] [address] [place] [phone] Nimo, Chair 10 Hem Onc Scenery [address] [place] [address] 03/04/2025 9:00 AM EDT Office Visit Orthopaedics [facility] [address] [place] [phone] Javed Salas DO [address] [place] [phone] 04/01/2025 1:00 PM EDT Hospital Encounter ENDO [facility], Endoscopy Room [facility] [address] [place] [phone] Amilcar Duran MD [address] [place] [address] 04/01/2025 1:00 PM EDT - 04/01/2025 1:30 PM EDT Surgery ENDO [facility], Endoscopy Room [facility] [address] [place] [address] Amilcar Duarn MD [address] [place] [address] ESOPHAGOGASTRODUODENOSCOPY (EGD), FLEXIBLE, TRANSORAL, DIAGNOSTIC 06/24/2025 8:30 AM EDT Office Visit Cardiology, [facility] [address] [place] [address] Homar Ware PA-C [address] [place] [address] Scheduled Procedures Name Priority Associated Diagnoses Date/Ti [...] Discussed due to patient's condition Care Teams Grocery Clerk Marking Relationship Specialty Start Date End Date Rowena Banks PA-C [facility] [place] [address] PCP - General Physician Estimation Manager 06/01/22 documented as of this encounter
--- OUTSIDE RECORDS SUMMARY | 2025-04-07 11:44 | External Medical Summary | Summary of Care ---
Author Name Unknown Organization [facility] Address [address] [place] [address] Phone [phone] Care Team Providers Care Machine Maintenance Technician Name Role Phone Rowena Banks PA-C Primary Care Provider [phone] [phone] Reason for Visit * Reason Comments Medication Management Encounter Details Date Type Department Care Team (Late st Contact Info) Description 01/08/2025 9:30 AM [facility] Pharmacy Pharmacy Hematology Oncology [facility] [address] [place] [address] [facility], [facility] Hem/Onc [address] [place], [place] [id number] Malignant neoplasm of upper-outer quadrant of left [...] as of this encounter (statuses as of 01/08/2025) Medications COMBIGAN 0.2-0.5 % ophthalmic solution Instill [...] Nausea. 90 Tablet 2 04/11/20 24 Active Montelukast Sodium 10 MG Oral Tablet (Singulair)Indic ations:Chronic cough TAKE 1 TABLET BY MOUTH EVERY MORNING 90 Tablet 2 05/08/20 24 Active Carvedilol 6.25 MG Oral Tablet [...] at bedtime 60 Capsule 01/07/20 25 Active Hospital, Clinic, or Other Facility Administered Medication Ordered Dose Route Frequency Start Date End Date Status albuterol sulfate (PROVENTIL) (2.5 MG/3ML) 0.083% inhalation solution 2.5 mgIndications:Restrictive lung disease,SOB (shortness of breath) 2.5 mg NEBULIZER Q4H PRN 11/07/2017 Act roe documented as of this encounter (statuses as of 01/08/2025) Active Problems Problem Noted Date Diagnosed Date [...] as of this encounter (statuses as of 01/08/2025) Resolved Problems Problem Noted Date Diagnosed Date [...] as of this encounter (statuses as of 01/08/2025) Immunizations Name Administration Dates Next Due COVID-19 [...] as of this encounter Progress Notes * Lori Tesfaye, well point pumping supervisor - 01/08/2025 11:45 AM EST MEDICATION THERAPY MANAGEMENT ABEMACICLIB TREATMENT PROGRESS NOTE Sarah Burgos [phone] Patient Phone Numbers Preferred Lab: [place]: P Communication: Spoke with Patient Treatment: Medication: Abemaciclib (Verzenio) Indication/Staging/Diagnosis Code: met ER+/IN+/HER2- breast cancer / C50.412 Dose: 100mg BID ( 08/31/2024) Administration: +/- food Start Date: 03/28/24 Primary Account Planner/Oncologist: Dr. Rui Christiansen She heard [facility] and has no further questions or concerns at this time. She was interested in the vitamin d test. Results have not processed at this time and office will reach out with results once obtained. Lori Tesfaye, well point pumping supervisor Cotton Stomper Hematology Oncology Oral Chemotherapy Clinic Medication Therapy Disease Management [facility] 01/08/25,11:47 AM Time Spent on Encounter: 6 - 10 minutes * Nessa Taveras, [facility] - 01/08/2025 10:35 AM EST MEDICATION THERAPY MANAGEMENT ABEMACICLIB TREATMENT PROGRESS NOTE Sarah Burgos [id number] Patient Phone Numbers Preferred Lab: [place] Specialty Pharm[facility]: [facility] Communication: Left message requesting return call to assess toleration to therapy Treatment: Medication: Abemaciclib (Verzenio) Indication/Staging/Diagnosis Code: met ER+/IN+/HER2- breast cancer / C50.412 Dose: 100mg BID ( 08/31/2024) Administration: +/- food Start Date: 03/28/24 Primary Account Planner/Oncologist: Dr. Rui Christiansen Supportive Care Meds: Fulvestrant Xgeva Ondansetron Prophylactic Meds: See anticoagulation Relevant Chronic Medications: Category Medications Pertinent Notes Antihypertensives HCTZ 12.5mg daily Losartain 100mg daily Carvedilol 6.25mg BID Hydralazine 50mg TID Per cardiology Antidiabetic Sitagliptin Pt hx Anticoagulation ASA 81mg daily Pt hx Treatment History: 12/25/19-05/22/20: DDAC + paclitaxel 8/17/20: b/l mastectomy 10/2020: RT 05/2020-10/2022: anastrozole 10/2022-02/2024: exemestane Dose adjustment / medication hold: 07/18/24-07/26/24: abemaciclib held due to elevated creatinine 07/27/24: resumed abemaciclib 150mg daily 08/08/24: DI to 150mg BID 08/23/24: DR to 150mg daily 08/31/2024: DR to 100mg BID Interval History: N/A Changes to medication list since last visit? No Assessment and Plan: BUN declining to WNL Ca2+ declining Per TEST TUBE MAKER encounter 01/08/25, Xgeva held due to low Ca2+ Will monitor closely All other labs stable Continue current abemaciclib dose and monthly labs Assessment of compliance: N/A Assessment of adverse effects attributed to drug therapy: N/A Dose adjustment needed based on lab or adverse drug reaction? No Follow up: 1 month Nessa Taveras, PharmD, BCOP Clinical Pharmacist, [facility] Oral Chemotherapy [facility] 01/08/2025, 10:40 AM Monitoring Parameters: Estimated CrCl Serum creatinine: [...] Hepatitis B Core Antibody IgM Negative Negative Hepatitis C Antibody Negative Negative test N/A - postmenopausal Suggested lab monitoring Suggested labs: CBC with differential and platelets (at baseline, every 2 weeks for the first 2 months, monthly for the next 2 months, then as clinically indicated); ALT, AST, and serum bilirubin (at baseline, every 2 weeks for the first 2 months, monthly for the next 2 months, then as clinically indicated); testing (prior to treatment in females of reproductivepotential). Treatment Parameters Per PI Pertinent labs: Latest Reference Range & Units 12/10/24 08:53 12/24/24 13:30 01/07/25 07:57 WBC 4.00 - 10.80 K/uL 3.48 (L) 5.64 3.13 (L) RBC 3.85 - 5.15 M/uL 2.67 2.94 2.82 HGB 12.0 - 15.3 g/dL 9.8 (L) 10.6 (L) 10.3 (L) HCT 36.0 - 45.2 % 29.8 (L) 32.1 (L) 31.7 (L) MCV 81.5 - 97.5 fL 111.6 109.2 112.4 MCH 27.0 - 34.0 pg 36.7 36.1 36.5 MCHC 32.0 - 36.0 g/dL 32.9 33.0 32.5 RDW 11.5 - 15.5 % 14.7 13.8 14.5 PLT 140 - 400 K/uL 180 188 166 MPV 6.6 - 11.1 fL 10.7 9.9 10.4 CBC WITH WBC DIFFERENTIAL Rpt ! Rpt ! Rpt ! Absolute Neutrophils 1.80 - 7.70 K/uL 2.18 4.02 1.86 Latest Reference Range & Units 12/10/24 08:53 12/24/24 13:30 01/07/25 07:57 BUN 6 - 20 mg/dL 7 21 (H) 12 CREATININE 0.5 - 1.0 mg/dL 1.1 (H) 1.0 1.0 EGFR >=60 mL/min 58 (L) 60 60 Latest Reference Range & Units 12/10/24 08:53 12/24/24 13:30 01/07/25 07:57 CALCIUM 8.4 - 10.2 mg/dL 7.7 (L) 8.7 7.5 (L) Latest Reference Range & Units 12/10/24 08:53 12/24/24 13:30 01/07/25 07:57 Albumin 3.8 - 5.0 g/dL 4.4 4.2 4.1 AST 10 - 35 U/L 23 24 24 ALT 10 - 35 U/L 11 7 (L) 10 Alkaline Phosphatase 35 - 130 U/L 304 (H) 430 (H) 473 (H) Bilirubin, Total <=1.2 mg/dL 0.6 0.5 0.5 Time Spent on Encounter: 6 - 10 minutes Encounter Group: Oncology Encounter Interventions Item Category: Oral Chemotherapy Abemaciclib Problem/Rationale: Safety: Needs additional monitoring - Medication Requires monitoring Pharmacist Intervention(s): Lab monitoring Magnitude of Intervention: Monitoring with direction (Level 1) documented in this encounter Plan of Treatment Upcoming Encounters Date Type Department Care Team (Latest Contact Info) Description 02/04/2025 12:00 PM EDT Laboratory Laboratory, Brigid Mart [address] [place] [phone] [facility] [address] [place] [place] [address] 02/05/2025 9:30 AM EDT Pharmacy Pharmacy Hematology Oncology [place] [address] [place] [address] [facility], [facility] Clinic Hem/Onc [address] [place] [address] 02/05/2025 11:30 AM EDT Immunization/Inj ection Hematology/Onco logy Treatment, [place] [address] [facility] [place] [place] [phone] Nimo, Chair 10 Hem Onc Scenery [address] [place] [address] 03/04/2025 9:00 AM EDT Office Visit Orthopaedics [facility] [address] [place] [phone] Javed Salas, DO [address] [place] [phone] 03/04/2025 9:45 AM EDT Imaging Radiology [address] [place] [phone] 03/04/2025 11:00 AM EDT Imaging Radiology [address] [place] [phone] 03/14/2025 11:00 AM EDT Office Visit Hematology/Onco logy [facility] [address] [place], [place] [phone] Marquis Christiansen MD 200 [facility] [place], [place] [address] 04/01/2025 1:00 PM EDT Hospital Encounter ENDO [facility], Endoscopy Room [facility] [address] [place] [address] Amilcar Duran MD [address] [place] [address] 04/01/2025 1:00 PM EDT - 04/01/2025 1:30 PM EDT Surgery ENDO OSSC, Endoscopy Room [facility] [address] [place] [phone] Amilcar Duran MD [address] [place] [address] ESOPHAGOGASTRODUODENOSCOPY (EGD), FLEXIBLE, TRANSORAL, DIAGNOSTIC 06/24/2025 8:30 AM EDT Office Visit Cardiology, [facility] [address] [place] [address] Homar Ware PA-C [address] [place] [address] Scheduled Procedures Name Priority Associated Diagnoses Date/Ti [...] Discussed due to patient's condition Care Teams Machine Maintenance Technician Relationship Specialty Start Date End Date Rowena Banks PA-C [address] [place] [address] PCP - General Physician Dental Cream Maker 06/01/22 documented as of this encounter
--- OUTSIDE RECORDS SUMMARY | 2025-04-07 11:44 | External Medical Summary | Summary of Care ---
Author Name Unknown Organization [facility] Address [address] [facility] [place] [address] Phone [phone] Care Team Providers Care Vocational Childcare Teacher Name Role Phone Rowena Bonilla PA-C Primary Care Provider [phone] Reason for Visit * Reason Comments eRx-Medication Refill Encounter Details Date Type Department Care Team (Late st Contact Info) Description 01/08/2025 [facility] [address] [place] [phone] Rowena Bonilla PA-C [address] [place] [address] Chronic cough Allergies Active Allergy Reactions Criticality Noted Date [...] 1 Puff before bedtime. 60 Each 5 12/10/2 024 Active Ondansetron HCl 4 MG Oral [...] EVERY MORNING 90 Tablet 3 025 Active Montelukast Sodium 10 MG Oral [...] encounter Miscellaneous Notes * Telephone Encounter - Jefry Cohn, [facility] - 01/09/2025 1:26 PM ESTSigned Prescriptions: Disp Refills Montelukast Sodium 10 MG Oral Tablet (Sing*90 Tab*3 Sig: TAKE 1TABLET BY MOUTH EVERY MORNINGAuthorizing Provider: ROWENA BONILLA User: JEFRY ADAMS documented in this encounter Plan of Treatment Upcoming Encounters Date Type Department Care Team (Latest Contact Info) Description 01/21/2025 11:45 AM EST Imaging Radiology [address] [place] [address] 01/21/2025 1:00 PM EST Imaging Radiology [address] [place] [address] 01/24/2025 11:00 AM EST Office Visit Hematology/Onco logy [facility] [address] [place] [phone] Marquis Christiansen MD [address] [place] [address] 02/04/2025 12:00 PM EDT Laboratory [facility], [place] [facility] [address] [place] [phone] [facility] [address] [place] [address] 02/05/2025 9:30 AM EDT Pharmacy Pharmacy Hematology Oncology [address] [address] [facility], [facility] Hem/Onc [facility] [place] [address] 02/05/2025 11:30 AM EDT Immunization/Inj ection Hematology/Onco logy Treatment, [place] [address] [place], [place] [address] Nimo, Chair 10 Hem Onc Scenery [address] [place] [address] 03/04/2025 9:00 AM EDT Office Visit Orthopaedics [facility] [address] [place] [phone] Javed Salas DO [address] [place] [phone] 04/01/2025 1:00 PM EDT Hospital Encounter ENDO OSSC, Endoscopy Room [facility] [address] [place] [phone] Amilcar Duran MD [address] [place] [address] 04/01/2025 1:00 PM EDT - 04/01/2025 1:30 PM EDT Surgery ENDO OSS[facility], Endoscopy Room [facility] [address] [place] [phone] Amilcar Duran MD [address] [place] [address] ESOPHAGOGASTRODUODENOSCOPY (EGD), FLEXIBLE, TRANSORAL, DIAGNOSTIC 06/24/2025 8:30 AM EDT Office Visit Cardiology, [facility] [address] [place] [address] Homar Ware PA-C [address] [place] [address] Scheduled Procedures Name Priority Associated Diagnoses Date/Ti [...] of this encounter Visit Diagnoses Diagnosis Chronic cough Cough Gastroesophageal reflux disease, unspecified whether esophagitis present [...] Discussed due to patient's condition Care Teams Vocational Childcare Teacher Relationship Specialty Start Date End Date Rowena Bonilla PA-C [address] [place] [address] PCP - General Physician Boiler Plant Worker 06/01/22 documented as of this encounter
--- OUTSIDE RECORDS SUMMARY | 2025-04-07 11:44 | External Medical Summary | Summary of Care ---
Author Name Unknown Organization [facility] Address [address] [place] [place] [place] [address] Phone [phone] Care Team Providers Care Reference Data Expert Name Role Phone Rowena Banks PA-C Primary Care Provider [phone] Reason for Visit * Reason Onset Date Comments Test Results 01/09/2025 Encounter Details Date Type Department Care Team (Late st Contact Info) Description 01/09/2025 Telephone Hematology/Oncology [facility] Nimo [place] [address] [facility] [address] Services, Scheduling [address] [place] [address] Test Results Allergies Active Allergy Reactions Criticality [...] Hemoglobin and hematocrit -10.3/39.7, Platelet count of 791111 Slightly low white blood cell count hemoglobin [...] Description 01/21/2025 11:45 AM EST Imaging Radiology [address] [place] [address] 01/21/2025 1:00 PM EST Imaging Radiology [address] [place] [address] 01/24/2025 11:00 AM EST Office Visit Hematology/Onco logy Patrick Suero [place] [address] [place] [phone] Marquis Christiansen MD [address] [place] [address] 02/04/2025 12:00 PM EDT Laboratory Laboratory, Brigid Cruz [address] [place] [phone] Mavis Rainey [address] [place] [address] 02/05/2025 9:30 AM EDT Pharmacy Pharmacy Hematology Oncology [facility] [address] [facility] [place] [place] [address] [facility], [facility] Clinic Hem/Onc [address] [place] [facility] [address] 02/05/2025 11:30 AM EDT Immunization/Inj ection Hematology/Onco logy Treatment, [place] [address] [place] [phone] Nimo, Chair 10 Hem Onc Scenery [address] [place] [address] 03/04/2025 9:00 AM EDT Office Visit Orthopaedics [facility] [address] [place] [phone] Javed Salas DO [address] [place] [phone] 04/01/2025 1:00 PM EDT Hospital Encounter ENDO OSSC, Endoscopy Room [facility] [address] [place] [phone] Amilcar Duran MD [address] [place] [address] 04/01/2025 1:00 PM EDT - 04/01/2025 1:30 PM EDT Surgery ENDO O[facility], Endoscopy Room [facility] [address] [place] [address] Amilcar Duran MD [address] [place] [address] ESOPHAGOGASTRODUODENOSCOPY (EGD), FLEXIBLE, TRANSORAL, DIAGNOSTIC 06/24/2025 8:30 AM EDT Office Visit Cardiology, [facility] [address] [place] [address] Homar Ware PA-C [address] [place] [address] Scheduled Procedures Name Priority Associated Diagnoses Date/Ti [...] Discussed due to patient's condition Care Teams Reference Data Expert Relationship Specialty Start Date End Date Rowena Banks PA-C [facility] [place] [address] PCP - General Physician Testing Lead 06/01/22 documented as of this encounter
--- OUTSIDE RECORDS SUMMARY | 2025-04-07 11:45 | External Medical Summary | Summary of Care ---
Author Name Unknown Organization [facility] Address [address] [facility] [place] [address] Phone [phone] Care Team Providers Care Call Out Clerk Name Role Phone Rowena Banks PA-C Primary Care Provider [phone] [phone] Reason for Visit * Reason Comments Acute Urinary urgency-was worse yesterday, today symptoms aren't as bad today Encounter Details Date Type Department Care Team (Late st Contact Info) Description 01/07/2025 1:00 PM EST Office Visit 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 90 Tablet 2 024 Active Montelukast Sodium 10 MG Oral Tablet (Singulair)Sharee cations:Chronic cough TAKE 1 TABLET BY MOUTH EVERY MORNING 90 Tablet 2 024 Active Carvedilol 6.25 [...] (1 tablet) before bedtime. 60 Tablet 5 12/18/19 25 2:12 PM EST 024 Active Gabapentin 100 [...] for Nausea. 30 Tablet 3 025 Active oxyCODONE-Aceta minophen 5-325 MG Oral Tablet (Percocet)Indic ations:Carcinom a of left breast metastatic to axillary lymph node (HCC),Pain of left upper extremity Take 1 Tablet by mouth every 4 hours as needed for Pain, Severe. 18 Tablet 024 2024 Discontinued Gabapentin 300 MG Oral Capsule (Neurontin) Take 2 Capsules by mouth at bedtime 60 Capsule 025 2024 Discontinued Losartan Potassium 100 MG Oral Tablet (Cozaar) Take 0.5 Tablets by mouth in the morning. 025 2024 Discontinued(M edication List Clean Up) Hospital, Clinic, or Other Facility Administered Medication Ordered Dose Route Frequency Start Date End Date Status albuterol sulfate (PROVENTIL) (2.5 MG/3ML) 0.083% inhalation solution 2.5 mgIndications:Restrictive lung disease,SOB (shortness of breath) 2.5 mg NEBULIZER Q4H PRN 11/07/2017 Act roe documented as of this encounter (statuses as of 01/07/2025) Active Problems Problem Noted Date Diagnosed Date [...] as of this encounter (statuses as of 01/07/2025) Resolved Problems Problem Noted Date Diagnosed Date [...] as of this encounter (statuses as of 01/07/2025) Immunizations Name Administration Dates Next Due COVID-19 [...] Sign Reading Time Taken Comments Blood Pressure 129/86 01/07/2025 12:46 PM EST Pulse 80 01/07/2025 12:46 PM EST Temperature 36.3 °C (97.3 °F) 01/07/2025 12:[address] Respiratory Rate 16 01/07/2025 12:46 PM EST Oxygen Saturation - - Inhaled Oxygen Concentration - - Weight 100.2 kg (221 lb) 01/07/2025 12:46 PM EST Height 162.6 cm (5' 4") 01/07/2025 12:46 PM EST Body Mass Index 37.93 01/07/2025 12:46 PM EST documented in this encounter Progress Notes * Joseph Vazquez MD - 01/07/2025 1:01 PM EST Images from the original note were not included. Subjective Sarah Burgos is a 69 year old female that presents for Acute (Urinary urgency- was worse yesterday,today symptoms aren't as bad today) History of Present Illness Sarah Burgos is a 69 year old female with type two diabetes and left breast cancer undergoing chemotherapy who presents for follow-up. She experiences frequent urination, approximately ten to fifteen times daily, with five to six occurrences at night. There is an urgency to urinate, often leading to incontinence if she cannot reach the bathroom in time. Her urine is clear, with no unusual colors or smells. No recent changes in medication that could contribute to these symptoms, although she was taken off Lopressor last week. Shehas a history of kidney infections but currently lacks symptoms typical of such infections, like fever or severe back pain. She reports back pain, which she attributes to existing lesions, and occasional abdominal pain, though she does not consider it serious. She feels she is emptying her bladder completely, as she oftenurinates one or two times before getting up. Her blood sugar levels have been stable, with no readings over 118-120 mg/dL, and her A1c is reported to be great. She is not currently on any diabetes medications. She mentions having had blood work done two weeks ago, which showed stable results and improving hemoglobin levels. She also had fluid administered recently. Objective Vitals: 01/07/25 1246 Temp: 97.3 °F (36.3 °C) Pulse: 80 Resp: 16 BP: 129/86 BMI: 37.92 Physical Exam Physical Exam Vitals reviewed. Constitutional: General: She is not in acute distress. Cardiovascular: Rate and Rhythm: Normal rate and regular rhythm. Heart sounds: No murmur heard. Pulmonary: Effort: Pulmonary effort is normal. No respiratory distress. Breath sounds: Normal breath sounds. No wheezing. Abdominal: Tenderness: There is no right CVA tenderness or left CVA tenderness. Neurological: Mental Status: She is alert. I have reviewed the following results: Results LABS Hemoglobin: improving (12/24/2024) Assessment and Plan Assessment & Plan Urinary Frequency and Incontinence New onset of urinary frequency and incontinence. No dysuria, hematuria, or fever. Back pain is chronic and not related to urinary symptoms. -Collect urine sample for urinalysis and culture to rule out urinary tract infection. -If no infection is present and symptoms persist, consider medications for urinary urgency. Type 2 Diabetes Well-controlled with diet alone. Recent blood glucose readings have been within normal limits and A1c is satisfactory. -Continue current management without medications. -Recheck blood glucose levels if there are any concerns about increasing levels in the future. Hyperlipidemia, Restrictive Lung Disease, Hypertension, and Breast Cancer Chronic conditions, currently undergoing chemotherapy for breast cancer. -Continue current management and medications for these conditions. General Health Maintenance -Continue with scheduled chemotherapy treatments. -Follow-up after lab results are available. 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 Text in this note was generated using an [employer] service. I discussed the use of a device to record and summarize our discussion today. All persons present during the encounter consented to its use. documented in this encounter Nursing Notes * Keely Farias LPN - 01/07/2025 12:46 PM EST The patient has been properly identified by confirmation of name and date of . Chief Complaint Patient presents with Acute Urinary urgency-was worse yesterday, today symptoms aren't as bad today documented in this encounter Plan of Treatment Upcoming Encounters Date Type Department Care Team (Latest Contact Info) Description 01/08/2025 9:30 AM EST Pharmacy Pharmacy Hematology Oncology [place] [address] [place] [address] [facility], [facility] Clinic Hem/Onc [facility] [place] [address] 01/08/2025 10:15 AM EST Immunization/Inj ection Hematology/Onco logy Treatment, [place] [address] [place] [phone] 01/24/2025 8:00 AM EST Laboratory Laboratory, [facility] [address] [place] [phone] [facility] [address] [place] [address] 01/25/2025 12:45 PM EST Immunization/Inj ection Hematology/Onco logy Treatment, [place] [address] [place] [address] 03/04/2025 9:00 AM EDT Office Visit Orthopaedics [facility] [address] [place] [address] Javed Salas DO [address] [place] [phone] 03/04/2025 9:45 AM EDT Imaging Radiology [address] [place] [address] 03/04/2025 11:00 AM EDT Imaging Radiology [address] [place] [address] 03/14/2025 11:00 AM EDT Office Visit Hematology/Onco logy [place] [address] [place] [phone] Marquis Christiansen MD [address] [place] [address] 04/01/2025 1:00 PM EDT Hospital Encounter ENDO [facility], Endoscopy Room [facility] [address] [place] [phone] Amilcar Duran MD [address] [place] [address] 04/01/2025 1:00 PM EDT - 04/01/2025 1:30 PM EDT Surgery ENDO [facility], [facility] [address] [place] [address] Amilcar Duran MD [address] [place] [address] ESOPHAGOGASTRODUODENOSCOPY (EGD), FLEXIBLE, TRANSORAL, DIAGNOSTIC 06/24/2025 8:30 AM EDT Office Visit Cardiology, [facility] [address] [place] [address] Homar Ware PA-C [address] [place] [address] Pending Results Name Type Priority Associated Diagnoses Date /Time CULTURE, URINE, QUANTITATIVE Lab Routine Urinary frequency 01/07/2025 1:33 PM EST Scheduled Orders Name Type Priority Associated Diagnoses Orde r Schedule URINALYSIS, POINT OF CARE (ENTER/EDIT) Point of Care Testing Routine Urinary frequency Ordered: 01/07/2025 Scheduled Procedures Name Priority Associated Diagnoses Date/Ti [...] encounter Visit Diagnoses Diagnosis HTN, goal below 140/90- Primary Unspecified essential hypertension Urinary frequency Type 2 diabetes mellitus with diabetic polyneuropathy, unspecified whether slurry man insulin use (HCC) 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
--- OUTSIDE RECORDS SUMMARY | 2025-04-07 11:45 | External Medical Summary ---
Author Name Unknown Address Unknown Organization K01:[facility] - [address] [place] [address] Laboratory Report Ordering Provider Test Date Status DINESH MOBLEY 01/07/2025 07:57:44 Final Observation Date Value Abnormality Reference (Units ) Status GGT 01/07/2025 07:57:44 19 <=40 (U/L) Final Performing Location [facility] - [address] [place] [address]
--- OUTSIDE RECORDS SUMMARY | 2025-04-07 11:45 | External Medical Summary | Summary of Care ---
Author Name Unknown Organization [facility] Address [address] [facility] [place] [address] Phone [phone] Care Team Providers Care Cooling Pan Tender Name Role Phone Rowena Banks PA-C Primary Care Provider [phone] Reason for Visit * Reason Comments Acute Urinary urgency-was worse yesterday, today symptoms aren't as bad today Encounter Details Date Type Department Care Team (Late st Contact Info) Description 01/07/2025 1:00 PM EST Office Visit [facility] [address] [facility] [place] [address] MarchJoseph MD 226 [facility] [address] [place], [place] [phone] HTN, goal below 140/90*; Urinary frequency; Type 2 diabetes mellitus with diabetic polyneuropathy, unspecified whether manager terminal insulin use (HCC); Carcinoma of left breast [...] diabetes mellitus with diabetic polyneuropathy, unspecified whether manager terminal insulin use (HCC) 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 Text in this note was generated using an [employer] service. I discussed the use of a [...] 9:30 AM EST Pharmacy Pharmacy Hematology Oncology [place] [address] [place] [address] [facility] Clinic Hem/Onc [facility] [place] [address] 01/08/2025 10:15 AM EST Immunization/Inj ection Hematology/Onco logy Treatment, [place] [address] [place] [phone] 01/24/2025 8:00 AM EST Laboratory Laboratory, [facility] 226 [place] [phone] [facility] 226 [place] [address] 01/25/2025 12:45 PM EST Immunization/Inj ection Hematology/Onco logy Treatment, [place] [address] [place] [address] 03/04/2025 9:00 AM EDT Office Visit Orthopaedics [facility] [address] [place] [address] Javed Salas DO [address] [place] [phone] 03/04/2025 9:45 AM EDT Imaging Radiology [address] [place] [address] 03/04/2025 11:00 AM EDT Imaging Radiology [address] [place] [address] 03/14/2025 11:00 AM EDT Office Visit Hematology/Onco logy Patrick Suero [place] [address] [place] [phone] Marquis Christiansen MD [address] [place] [address] 04/01/2025 1:00 PM EDT Hospital Encounter ENDO [facility], Endoscopy Room [facility] [address] [place] [phone] Amilcar Duran MD [address] [place] [address] 04/01/2025 1:00 PM EDT - 04/01/2025 1:30 PM EDT Surgery ENDO [facility], Endoscopy Room [facility] [address] [place] [address] Amilcar Duran MD [address] [place] [address] ESOPHAGOGASTRODUODENOSCOPY (EGD), FLEXIBLE, TRANSORAL, DIAGNOSTIC 06/24/2025 8:30 AM EDT Office Visit Cardiology, [facility] [address] [place] [address] Homar Ware PA-C [address] [place] [address] Pending Results Name Type Priority Associated Diagnoses [...] diabetes mellitus with diabetic polyneuropathy, unspecified whether manager terminal insulin use (HCC) Carcinoma of left breast [...] Discussed due to patient's condition Care Teams Cooling Pan Tender Relationship Specialty Start Date End Date Rowena Banks PA-C [address] [place] [address] PCP - General Physician Christmas Tree Contractor 06/01/22 documented as of this encounter
--- OUTSIDE RECORDS SUMMARY | 2025-04-07 11:45 | External Medical Summary | Summary of Care ---
Author Name Unknown Organization [facility] Address [address] [facility] [place] [address] Phone [phone] Care Team Providers Care Ruling Machine Operator Name Role Phone Rowena Banks PA-C Primary Care Provider [phone] [phone] Reason for Visit * Reason Comments eRx-Medication Refill Encounter Details Date Type Department Care Team (Late st Contact Info) Description 01/06/2025 Refill [facility] [address] [place] [address] Rowena Banks PA-C 226 [facility] [place] [address] Allergies Active Allergy Reactions Criticality Noted [...] mouth at bedtime 60 Capsule 025 Active Gabapentin 300 MG Oral Capsule (Neurontin) Take 2 Capsules by mouth at bedtime 60 Capsule 025 2024 Discontinued Hospital, Clinic, or Other Facility [...] Miscellaneous Notes * Telephone Encounter - Rowena Banks PA-C - 01/07/2025 4:32 PM EST Inboxologist Note: Refill sent Rowena Banks PA-C * Telephone Encounter - Rowena Banks PA-C - 01/07/2025 4:32 PM ESTSigned Prescriptions: Disp Refills Gabapentin 300 MG Oral Capsule (Neurontin) 60 Cap*0 Sig: Take 2 Capsules by mouth at bedtime Authorizing Provider: ROWENA BANKS * Telephone Encounter - Cori Moffett LPN - 01/07/2025 3:25 PM ESTPending Prescriptions: Disp Refills Gabapentin 300 MG Oral Capsule [Pharmacy M*60 Cap*0 Sig: Take 2 Capsules by mouth at bedtime * Telephone Encounter - Elsie Mcgee - 01/07/2025 4:20 AM ESTPending Prescriptions: Disp Refills Gabapentin 300 MG Oral Capsule [Pharmacy M*60 Cap*0 Sig: Take 2Capsules by mouth at bedtime documented in this encounter Plan of Treatment Upcoming Encounters Date Type Department Care Team (Latest Contact Info) Description 01/08/2025 9:30 AM EST Pharmacy Pharmacy Hematology Oncology [facility] [address] [place] [address] [facility] Hem/Onc [address] [place] [address] 01/08/2025 10:15 AM EST Immunization/Inj ection Hematology/Onco logy [address], [address] [address] 01/24/2025 8:00 AM EST Laboratory Laboratory, [facility] [address] [facility] [place] [address] [place], [facility] [address] [facility] [place] [address] 01/25/2025 12:45 PM EST Immunization/Inj ection Hematology/Onco logy Treatment, [address] [address] 03/04/2025 9:00 AM EDT Office Visit Orthopaedics [facility] [address] [place] [address] Javed Salas, [address] [place] [address] 03/04/2025 9:45 AM EDT Imaging Radiology [address] [place] [address] 03/04/2025 11:00 AM EDT Imaging Radiology [address] [place] [address] 03/14/2025 11:00 AM EDT Office Visit Hematology/Onco logy [address] [address] Marquis Christiansen MD 200 [facility] [place] [address] 04/01/2025 1:00 PM EDT Hospital Encounter ENDO [facility], Endoscopy Room [facility] [address] [place] [phone] Amilcar Duran MD [address] [place] [address] 04/01/2025 1:00 PM EDT - 04/01/2025 1:30 PM EDT Surgery ENDO [facility], Endoscopy Room [facility] [address] [place] [phone] Amilcar Duran MD [address] [place] [address] ESOPHAGOGASTRODUODENOSCOPY (EGD), FLEXIBLE, TRANSORAL, DIAGNOSTIC 06/24/2025 8:30 AM EDT Office Visit Cardiology, [facility] [address] [place] [address] Homar Ware PA-C [address] [place] [address] Scheduled Procedures Name Priority Associated Diagnoses Date/Ti [...] Discussed due to patient's condition Care Teams Ruling Machine Operator Relationship Specialty Start Date End Date Rowena Banks PA-C [address] [facility] [place] [address] PCP - General Physician Electric Sealing Machine Operator 06/01/22 documented as of this encounter
--- OUTSIDE RECORDS SUMMARY | 2025-04-07 11:45 | External Medical Summary | Summary of Care ---
Author Name Unknown Organization [facility] Address [address] [facility] [place] [address] Phone [phone] Care Team Providers Care Stretching Machine Tender Frame Name Role Phone Rowena Banks PA-C Primary Care Provider [phone] Reason for Visit * Reason Comments Outpatient Testing Encounter Details Date Type Department Care Team (Late st Contact Info) Description 01/07/2025 8:00 AM EST Laboratory Laboratory, [place] [address] [place] [address] [facility] 226 [place], [place] [id number] Carcinoma of left breast metastatic to axillary [...] mouth in the morning. 06/09/20 20 Active Spawn LabsTouch Verio w/Device KitIndications:T ype 2 diabetes mellitus with hemoglobin A1c goal of less than 7.0% (HCC) Use up to twice times a day E11.9 1 Kit 04/15/20 22 Active Spawn LabsTouch Verio In Vitro Strip (Glucose Blood)Indication s:Type 2 diabetes mellitus with hemoglobin A1c goal of less than 7.0% (HCC) Use up to 2 times a day E11.9 100 Strip 11 04/15/20 22 Active Spawn LabsTouch UltraSoft LancetsIndicatio ns:Type 2 diabetes mellitus with [...] Wheezing. 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 18 Tablet 03/02/20 24 Active DULoxetine HCl 60 MG Oral [...] by mouth in the morning, Reported on 12/25/2024 Famotidine 20 MG Oral Tablet (Pepcid) Take [...] Nausea. 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 30 Tablet 3 12/14/19 25 Active Losartan Potassium 100 MG Oral Tablet (Cozaar) Take 0.5 Tablets by mouth in the morning. 12/25/19 25 Active Hospital, Clinic, or Other Facility Administered Medication Ordered Dose Route Frequency Start Date End Date Status albuterol sulfate (PROVENTIL) (2.5 MG/3ML) 0.083% inhalation solution 2.5 mgIndications:Restrictive lung disease,SOB (shortness of breath) 2.5 mg NEBULIZER Q4H PRN 11/07/2017 Act roe documented as of this encounter (statuses as of 01/07/2025) Active Problems Problem Noted Date Diagnosed Date B12 deficiency 10/19/2024 History of small bowel [...] Department Care Team (Latest Contact Info) Description 01/07/2025 1:00 PM EST Office Visit Family Practice, Brigid Jones [address] [place] [phone] MarchJoseph MD [address] [place] [address] 01/08/2025 9:30 AM EST Pharmacy Pharmacy Hematology Oncology [facility] [address] [place] [address] [facility] [place] [facility] Clinic Hem/Onc [facility] [place] [address] 01/08/2025 10:15 AM EST Immunization/Inj ection Hematology/Onco logy [address], [address] [phone] 01/24/2025 8:00 AM EST Laboratory Laboratory, [place] Ashkanveneciatere Barron [address] [place] [phone] Brigid Laboratory [address] [place] [address] 01/25/2025 12:45 PM EST Immunization/Inj ection Hematology/Onco logy Treatment, [address], [place] [address] 03/04/2025 9:00 AM EDT Office Visit Orthopaedics [facility] [address] [place] [phone] Javed Salas, DO [address] [place] [address] 03/04/2025 9:45 AM EDT Imaging Radiology [address] [place] [address] 03/04/2025 11:00 AM EDT Imaging Radiology [facility] 1st [facility] [address] [place] [address] 03/14/2025 11:00 AM EDT Office Visit [place]ology/[place] [facility] [place] [facility] [address] [place] [phone] Marquis Christiansen MD 200 [facility] [place] [address] 04/01/2025 1:00 PM EDT Hospital Encounter ENDO OSSC, Endoscopy Room [facility] [address] [place] [address] Amilcar Duran MD [address] [place] [address] 04/01/2025 1:00 PM EDT - 04/01/2025 1:30 PM EDT Surgery ENDO OSSC, Endoscopy Room [facility] [address] [place] [phone] Amilcar Duran MD [address] [place] [address] ESOPHAGOGASTRODUODENOSCOPY (EGD), FLEXIBLE, TRANSORAL, DIAGNOSTIC 06/24/2025 8:30 AM EDT Office Visit Cardiology, [facility] [address] [place] [address] Homar Ware PA-C [address] [place] [address] Pending Results Name Type Priority Associated Diagnoses Date /Time CBC WITH WBC DIFFERENTIAL Lab STAT 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) History of breast cancer Metastasis to bone (HCC) Malignant neoplasm of upper-outer quadrant of left breast in female, estrogen receptor positive (HCC) 01/07/2025 7:57 AM EST COMPREHENSIVE METABOLIC PANEL Lab STAT 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) History of breast cancer Metastasis to bone (HCC) Malignant neoplasm of upper-outer quadrant of left breast in female, estrogen receptor positive (HCC) 01/07/2025 7:57 AM EST PHOSPHORUS Lab Routine 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) History of breast cancer Metastasis to bone (HCC) Malignant neoplasm of upper-outer quadrant of left breast in female, estrogen receptor positive (HCC) 01/07/2025 7:57 AM EST CBC Lab STAT 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) History of breast cancer Metastasis to bone (HCC) Malignant neoplasm of upper-outer quadrant of left breast in female, estrogen receptor positive (HCC) 01/07/2025 7:57 AM EST DIFFERENTIAL, AUTOMATED Lab STAT 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) History of breast cancer Metastasis to bone (HCC) Malignant neoplasm of upper-outer quadrant of left breast in female, estrogen receptor positive (HCC) 01/07/2025 7:57 AM EST Scheduled Procedures Name Priority Associated Diagnoses Date/Ti [...] from 08/12/2017 (Patient Declined After Education) GFR 12/24/2025 12/24/2024, 11/22, 11/29/2024, Additional history exists Colonoscopy 02/28/2028 02/27/2018, 04/0 [...] Discussed due to patient's condition Care Teams Stretching Machine Tender Frame Relationship Specialty Start Date End Date Rowena Banks PA-C 226 [facility] [place] [address] PCP - General Physician Collar Setter Overlock 06/01/22 documented as of this encounter
--- OUTSIDE RECORDS SUMMARY | 2025-04-07 11:45 | External Medical Summary | Summary of Care ---
Author Name Unknown Organization [facility] Address [address] [facility] [place] [address] Phone [phone] Care Team Providers Care Manager Mba Name Role Phone Rowena Banks PA-C Primary Care Provider [phone] Reason for Visit * Reason Comments Outpatient Testing Encounter Details Date Type Department Care Team (Late st Contact Info) Description 01/07/2025 8:00 AM EST Laboratory Laboratory, [facility] [address] [place] [phone] [facility] 226 [place], [place] [phone] Carcinoma of left breast metastatic to axillary [...] by mouth in the morning. 020 Active English TVTouch Verio w/Device KitIndications: Type 2 diabetes mellitus with hemoglobin A1c goal of less than 7.0% (HCC) Use up to twice times a day E11.9 1 Kit 022 Active English TVTouch Verio In Vitro Strip (Glucose Blood)Indicatio ns:Type 2 diabetes mellitus with hemoglobin A1c goal of less than 7.0% (HCC) Use up to 2 times a day E11.9 100 Strip 11 022 Active English TVTouch UltraSoft LancetsIndicati ons:Type 2 diabetes mellitus with [...] encounter Miscellaneous Notes * Addendum Note - Genna Norris TECH - 01/07/2025 1:31 PM ESTAddended by: GENNA NORRIS on: 01/07/2025 01:31 PM Modules accepted: Orders documented in this encounter Plan of Treatment Upcoming Encounters Date Type Department Care Team (Latest Contact Info) Description 01/08/2025 9:30 AM EST Pharmacy Pharmacy Hematology Oncology [address] [address] [facility] [place] Clinic Hem/[place] [address] 01/08/2025 10:15 AM EST Immunization/Inj ection Hematology/Onco logy Treatment, [address] [phone] 01/24/2025 8:00 AM EST Laboratory Laboratory, Brigid Peña 226 [facility] [place] [phone] Mavis [place] [address] [facility] [place] [address] 01/25/2025 12:45 PM EST Immunization/Inj ection Hematology/Onco logy Treatment, [address] [phone] 03/04/2025 9:00 AM EDT Office Visit Orthopaedics [facility] [address] [place] [phone] Javed Salas, [address] [place] [address] 03/04/2025 9:45 AM EDT Imaging Radiology [address] [place] [address] 03/04/2025 11:00 AM EDT Imaging Radiology [address] [place] [address] 03/14/2025 11:00 AM EDT Office [facility] [address] [place] [phone] Marquis Christiansen MD [address] [place] [address] 04/01/2025 1:00 PM EDT Hospital Encounter ENDO OSSC, Endoscopy Room [facility] [address] [place] [address] Amilcar Duran MD [address] [place] [address] 04/01/2025 1:00 PM EDT - 04/01/2025 1:30 PM EDT Surgery ENDO OSSC, Endoscopy Room [facility] [address] [place] [phone] Amilcar Duran MD [address] [place] [address] ESOPHAGOGASTRODUODENOSCOPY (EGD), FLEXIBLE, TRANSORAL, DIAGNOSTIC 06/24/2025 8:30 AM EDT Office Visit Cardiology, [facility] [address] [place] [address] Homar Wrae PA-C [address] [place] [address] Scheduled Procedures Name Priority Associated Diagnoses Date/Ti [...] Procedure Name Priority Date/Time Associated Diagnosis Comments EXTRA GOLD TOP Routine 01/07/2025 7:57 AM EST EXTRA TUBES Routine 01/07/2025 7:57 AM EST DIFFERENTIAL, AUTOMATED STAT 01/07/2025 7:57 AM EST 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) History of breast cancer Metastasis to bone (HCC) Malignant neoplasm of upper-outer quadrant of left breast in female, estrogen receptor positive (HCC) COMPREHENSIVE METABOLIC PANEL STAT 01/07/2025 7:57 AM EST 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) History of breast cancer Metastasis to bone (HCC) Malignant neoplasm of upper-outer quadrant of left breast in female, estrogen receptor positive (HCC) CBC STAT 01/07/2025 7:57 AM EST 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) History of breast cancer Metastasis to bone (HCC) Malignant neoplasm of upper-outer quadrant of left breast in female, estrogen receptor positive (HCC) PHOSPHORUS Routine 01/07/2025 7:57 AM EST 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) History of breast cancer Metastasis to bone (HCC) Malignant neoplasm of upper-outer quadrant of left breast in female, estrogen receptor positive (HCC) CBC STAT 01/07/2025 7:57 AM EST 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) History of breast cancer Metastasis to bone (HCC) Malignant neoplasm of upper-outer quadrant of left breast in female, estrogen receptor positive (HCC) documented in this encounter Results * EXTRA GOLD TOP (01/07/2025 7:57 AM EST) Blood Venous blood specimen / Unknown 01/07/2025 7:57 AM EST 01/07/2025 1:31 PM EST us Marquis Christiansen MD LAB BLOOD ORDERABLES Final Res ult [facility] [address] [place] [address] * (ABNORMAL) DIFFERENTIAL, AUTOMATED (01/07/2025 7:57 AM EST) WBC 3.13(L) 4.00 - 10.80 K/uL 01/07/2025 2:16 PM EST [facility] Neutrophils % 59.4 40.0 - 75.0 % 01/07/2025 2:16 PM EST [facility] Lymphocytes % 26.2 18.0 - 42.0 % 01/07/2025 2:16 PM EST [facility] Monocytes % 8.0 1.0 - 11.0 % 01/07/2025 2:16 PM EST [facility] Eosinophils % 3.2 0.0 - 6.0 % 01/07/2025 2:16 PM EST [facility] Basophils % 2.2(H) 0.0 - 2.0 % 01/07/2025 2:16 PM EST [facility] Immature Granulocytes % 1.0 0.0 - 2.0 % 01/07/2025 2:16 PM EST [facility] Absolute Neutrophils 1.86 1.80 - 7.70 K/uL 01/07/2025 2:16 PM EST [facility] Absolute Lymphocytes 0.82(L) 1.00 - 4.80 K/ul 01/07/2025 2:16 PM EST [facility] Absolute Monocytes 0.25 0.00 - 1.10 K/uL 01/07/2025 2:16 PM EST [facility] Absolute Eosinophils 0.10 0.00 - 0.70 K/uL 01/07/2025 2:16 PM EST [facility] Absolute Basophils 0.07 0.00 - 0.20 K/uL 01/07/2025 2:16 PM EST [facility] Absolute Immature Granulocytes 0.03 0.00 - 0.20 K/uL 01/07/2025 2:16 PM EST [facility] Blood Venous blood specimen / Unknown Venipuncture / Unknown 01/07/2025 7:57 AM EST 01/07/2025 7:57 AM EST us Marquis Christiansen MD LAB BLOOD ORDERABLES Final Res ult Performing Organization Address City/State/[facility] Co de Phone Number [facility] [address] [place] [address] * (ABNORMAL) CBC (01/07/2025 7:57 AM EST) WBC 3.13(L) 4.00 - 10.80 K/uL 01/07/2025 2:16 PM EST [facility] RBC 2.82 3.85 - 5.15 M/uL 01/07/2025 2:16 PM EST [facility] HGB 10.3(L) 12.0 - 15.3 g/dL 01/07/2025 2:16 PM EST [facility] HCT 31.7(L) 36.0 - 45.2 % 01/07/2025 2:16 PM EST [facility] MCV 112.4 81.5 - 97.5 fL 01/07/2025 2:16 PM EST [facility] MCH 36.5 27.0 - 34.0 pg 01/07/2025 2:16 PM EST [facility] MCHC 32.5 32.0 - 36.0 g/dL 01/07/2025 2:16 PM EST [facility] RDW 14.5 11.5 - 15.5 % 01/07/2025 2:16 PM EST [facility] PLT 166 140 - 400 K/uL 01/07/2025 2:16 PM EST [facility] MPV 10.4 6.6 - 11.1 fL 01/07/2025 2:16 PM EST [facility] nRBCs 0 <=0 /100 WBCs 01/07/2025 2:16 PM EST [facility] Blood Venous blood specimen / Unknown Venipuncture / Unknown 01/07/2025 7:57 AM EST 01/07/2025 7:57 AM EST Marquis Christiansen MD LAB BLOOD ORDERABLES Final Res ult Performing Organization Address City/[facility]/ZIP Co de Phone Number [facility] [address] [place] [address] * PHOSPHORUS (01/07/2025 7:57 AM EST) Phosphorus 2.7 2.5 - 4.8 mg/dL 01/07/2025 4:14 PM EST LABORATORY GM Blood Venous blood specimen / Unknown Venipuncture / Unknown 01/07/2025 7:57 AM EST 01/07/2025 7:57 AM EST Marquis Christiansen MD LAB BLOOD ORDERABLES Final Res ult Performing Organization Address City/[facility]/ZIP Co de Phone Number LABORATORY [facility] [address] [place] [address] * (ABNORMAL) COMPREHENSIVE METABOLIC PANEL (01/07/2025 7:57 AM EST) BUN 12 6 - 20 mg/dL 01/07/2025 4:14 PM EST [facility] CREATININE 1.0 0.5 - 1.0 mg/dL 01/07/2025 4:14 PM EST [facility] EGFR 60 >=60 mL/min 01/07/2025 4:14 PM EST [facility] Comment:eGFR is calculated b ased on the CKD-EPI 2020 equation. SODIUM 135 135 - 146 mmol/L 01/07/2025 4:14 PM EST [facility] POTASSIUM 4.4 3.5 - 5.1 mmol/L 01/07/2025 4:14 PM EST [facility] CHLORIDE 101 98 - 107 mmol/L 01/07/2025 4:14 PM EST [facility] CO2 23 22 - 32 mmol/L 01/07/2025 4:14 PM EST [facility] ANION GAP 11 7 - 15 mmol/L 01/07/2025 4:14 PM EST [facility] GLUCOSE 161(H) 70 - 120 mg/dL 01/07/2025 4:14 PM EST [facility] Albumin 4.1 3.8 - 5.0 g/dL 01/07/2025 4:14 PM EST [facility] AST 24 10 - 35 U/L 01/07/2025 4:14 PM EST [facility] Alkaline Phosphatase 473(H) 35 - 130 U/L 01/07/2025 4:14 PM EST [facility] Bilirubin, Total 0.5 <=1.2 mg/dL 01/07/2025 4:14 PM EST [facility] CALCIUM 7.5(L) 8.4 - 10.2 mg/dL 01/07/2025 4:14 PM EST [facility] Protein 6.8 6.0 - 8.3 g/dL 01/07/2025 4:14 PM EST [facility] ALT 10 10 - 35 U/L 01/07/2025 4:14 PM EST [facility] Blood Venous blood specimen / Unknown Venipuncture / Unknown 01/07/2025 7:57 AM EST 01/07/2025 7:57 AM EST us Marquis Christainsen MD LAB BLOOD ORDERABLES Final Res ult [facility] [address] [place] [address] documented in this encounter Visit Diagnoses Diagnosis [...] Discussed due to patient's condition Care Teams Manager Mba Relationship Specialty Start Date End Date Rowena Banks PA-C [address] [place] [address] PCP - General Physician Spot Washer 06/01/22 documented as of this encounter
--- OUTSIDE RECORDS SUMMARY | 2025-04-07 11:45 | External Medical Summary ---
Author Name Unknown Address Unknown Organization K01:LABORATORY C - [address] [place] [address] Laboratory Report Ordering Provider Test Date Status DINESH MOBLEY 01/07/2025 07:57:44 Final Observation Date Value Abnormality Reference (Units ) Status Phosphate 01/07/2025 07:57:44 2.7 2.5-4.8 (m g/dL) Final Performing Location [facility] - [address] [place] [address]
--- OUTSIDE RECORDS SUMMARY | 2025-04-07 11:45 | External Medical Summary | Summary of Care ---
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 (ordered, add on) documented in this encounter Plan of Treatment Upcoming Encounters Date Type Department Care Team (Latest Contact Info) Description 02/04/2025 12:00 PM EDT Laboratory Laboratory, [address] [place] [phone] [facility] [address] [place] [address] 02/05/2025 9:30 AM EDT Pharmacy Pharmacy Hematology Oncology [facility] [address] [place] [address] [facility] [place] Clinic Hem/Onc [facility] [place] [address] 02/05/2025 11:30 AM EDT Immunization/Inj ection Hematology/Onco logy Treatment, [place] [address] [facility] [place] [phone] Nimo, Chair 10 Hem Onc [address] [place] [address] 03/04/2025 9:00 AM EDT Office Visit Orthopaedics [facility] [address] [place] [phone] Javed Salas, DO [address] [place] [phone] 03/04/2025 9:45 AM EDT Imaging Radiology [address] [place] [phone] 03/04/2025 11:00 AM EDT Imaging Radiology [address] [place] [phone] 03/14/2025 11:00 AM EDT Office Visit Hematology/Onco logy [address] [place], [place] [address] Marquis Christiansen MD 200 [facility] [place], [place] [address] 04/01/2025 1:00 PM EDT Hospital Encounter ENDO OSSC, Endoscopy Room [facility] [address] [place] [phone] Amilcar Duran MD [address] [place] [address] 04/01/2025 1:00 PM EDT - 04/01/2025 1:30 PM EDT Surgery ENDO OSSC, Endoscopy Room [facility] [address] [place] [phone] Amilcar Duran MD [address] [place] [address] ESOPHAGOGASTRODUODENOSCOPY (EGD), FLEXIBLE, TRANSORAL, DIAGNOSTIC 06/24/2025 8:30 AM EDT Office Visit Cardiology, [facility] [address] [place] [address] Homar Ware PA-C [address] [place] [address] Scheduled Procedures Name Priority Associated Diagnoses Date/Ti ak ESOPHAGOGASTRODUODENOSCOPY ( EGD), FLEXIBLE, TRANSORAL, DIAGNOSTIC Gastroesophageal [...] filedocumented as of this encounter Results * GGTP (01/07/2025 7:57 AM EST) GGTP 19 <=40 U/L 01/08/2025 11:24 AM EST LABORATORY GM Blood Venous blood specimen / Unknown Venipuncture / Unknown 01/07/2025 7:57 AM EST 01/07/2025 7:57 AM EST us Marquis Christiansen MD LAB BLOOD ORDERABLES Final Res ult LABORATORY [facility] [address] [facility] [place] [address] documented in this encounter Visit Diagnoses Diagnosis 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)- Primary Metastasis to bone (HCC) Secondary malignant neoplasm of bone and bone marrow Elevated alkaline phosphatase level Other nonspecific abnormal serum enzyme levels Gastroesophageal reflux disease, unspecified whether esophagitis present [...] Discussed due to patient's condition Care Teams Supersonic Engineer Relationship Specialty Start Date End Date Rowena Banks PA-C [address] [place] [address] PCP - General Physician Milk Receiver Tank Truck 06/01/22 documented as of this encounter
--- OUTSIDE RECORDS SUMMARY | 2025-04-07 11:45 | External Medical Summary | Summary of Care ---
Author Name Unknown Organization [facility] Address [address] [place] [address] Phone [phone] Care Team Providers Care Cement Kiln Operator Name Role Phone Rowena Banks PA-C Primary Care Provider [phone] Reason for Visit * Reason Comments Medication Management Encounter Details Date Type Department Care Team (Late st Contact Info) Description 01/08/2025 9:30 AM [facility] Pharmacy Pharmacy Hematology Oncology [facility] [address] [place] [address] [facility] Clinic Hem/Onc [address], [place] [phone] Malignant neoplasm of upper-outer quadrant of left [...] this encounter Progress Notes * Lori Tesfaye, nursing resident - 01/08/2025 11:45 AM EST MEDICATION THERAPY MANAGEMENT ABEMACICLIB TREATMENT PROGRESS NOTE Sarah Burgos [id number] Patient Phone Numbers Preferred Lab: [place] Specialty Pharmacy: P Communication: Spoke with Patient Treatment: Medication: Abemaciclib (Verzenio) Indication/Staging/Diagnosis Code: met ER+/MT+/HER2- breast cancer / C50.412 Dose: 100mg BID ( 08/31/2024) Administration: +/- food Start Date: 03/28/24 Primary Refinery Operator Helper/Oncologist: Dr. Rui Christiansen She heard [facility] and has no further questions or concerns at this time. She was interested in the vitamin d test. Results have not processed at this time and office will reach out with results once obtained. Lori Tesfaye, nursing resident Head Filter Press Tender Hematology Oncology Oral Chemotherapy Clinic Medication Therapy Disease Management [facility] 01/08/25,11:47 AM Time Spent on Encounter: 6 - 10 minutes * Nessa Taveras, [facility] - 01/08/2025 10:35 AM EST MEDICATION THERAPY MANAGEMENT ABEMACICLIB TREATMENT PROGRESS NOTE Sarah Burgos [id number] Patient Phone Numbers Preferred Lab: [place] Specialty Pharmacy: [facility] Communication: Left message requesting return call to assess toleration to therapy Treatment: Medication: Abemaciclib (Verzenio) Indication/Staging/Diagnosis Code: met ER+/MT+/HER2- breast cancer / C50.412 Dose: 100mg BID ( 08/31/2024) Administration: +/- food Start Date: 03/28/24 Primary Refinery Operator Helper/Oncologist: Dr. Rui Christiansen Supportive Care Meds: Fulvestrant [...] BUN declining to WNL Ca2+ declining Per CUSTOMER RELATIONS COORDINATOR encounter 01/08/25, Xgeva held due to low Ca2+ Will monitor closely All other labs stable Continue current abemaciclib dose and monthly labs Assessment of compliance: N/A Assessment of adverse effects attributed to drug therapy: N/A Dose adjustment needed based on lab or adverse drug reaction? No Follow up: 1 month Nessa Taveras, PharmD, BCOP Clinical Pharmacist, [facility] Oral Chemotherapy [facility] 01/08/2025, 10:40 AM Monitoring Parameters: Estimated [...] Laboratory Laboratory, [facility] [address] [place] [phone] [facility] [address] [address] 02/05/2025 9:30 AM EDT Pharmacy Pharmacy Hematology Oncology [place] [address] [place] [address] [facility] [place], [facility] Clinic Hem/Onc [address] [place] [address] 02/05/2025 11:30 AM EDT Immunization/Inj ection Hematology/Onco logy Treatment, [place] [address] [facility] [place] [phone] Nimo, Chair 10 Hem Onc Scenery [address] [place] [address] 03/04/2025 9:00 AM EDT Office Visit Orthopaedics [facility] [address] [place] [phone] Javed Salas, DO [address] [place] [phone] 03/04/2025 9:45 AM EDT Imaging Radiology [address] [place] [phone] 03/04/2025 11:00 AM EDT Imaging Radiology [address] [place] [phone] 03/14/2025 11:00 AM EDT Office Visit Hematology/Onco logy [facility] [address] [place], [place] [phone] Marquis Christiansen MD [address] [facility] [place], [place] [address] 04/01/2025 1:00 PM EDT Hospital Encounter ENDO [facility], Endoscopy Room [facility] [address] [place] [address] Amilcar Duran MD [address] [place] [address] 04/01/2025 1:00 PM EDT - 04/01/2025 1:30 PM EDT Surgery ENDO [facility], Endoscopy Room [facility] [address] [place] [phone] Amilcar Duran MD [address] [place] [address] ESOPHAGOGASTRODUODENOSCOPY (EGD), FLEXIBLE, TRANSORAL, DIAGNOSTIC 06/24/2025 8:30 AM EDT Office Visit Cardiology, [facility] [address] [place] [address] Homar Ware PA-C [address] [place] [address] Scheduled Procedures Name Priority Associated Diagnoses Date/Ti [...] Discussed due to patient's condition Care Teams Cement Kiln Operator Relationship Specialty Start Date End Date Rowena Banks PA-C [address] [place] [address] PCP - General Physician Reciprocating Drill Operator 06/01/22 documented as of this encounter
--- OUTSIDE RECORDS SUMMARY | 2025-04-07 11:45 | External Medical Summary | Summary of Care ---
Author Name Unknown Organization [facility] Address [address] [facility] [address] Phone [phone] Care Team Providers Care Project Designer Name Role Phone Rowena Banks PA-C Primary Care Provider [phone] Reason for Visit * Reason Comments Medication Administration Faslodex/B12 Nurse Documentation Hold Xgeva * Episode Based Medications (Routine) - Authorized Specialty Diagnoses / Procedures Referred By Contdea t Referred To Contact Diagnoses 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) Procedures NV INJECTION, FULVESTRANT Marquis Christiansen MD [address] [place] [address] Phone: tel: fax: Hematology/Oncology Treatment, [address] [address] Phone: tel: fax: Referral ID Status Reason Start Date Expiration Date V isits Requested Visits Authorized [id number] Authorized 03/15/2024 11/20/2099 [id number] Encounter Details Date Type Department Care Team (Late st Contact Info) Description 01/08/2025 10:15 AM EST Immunization/I njection Hematology/Oncology Treatment, [address] [address] Carcinoma of left breast metastatic [...] mouth in the morning. 06/09/20 20 Active Spotfav Reporting TechnologiesTouch Verio w/Device KitIndications:T ype 2 diabetes mellitus with hemoglobin A1c goal of less than 7.0% (HCC) Use up to twice times a day E11.9 1 Kit 04/15/20 22 Active [employer]fav Reporting TechnologiesTouch Verio In Vitro Strip (Glucose Blood)Indication s:Type 2 diabetes mellitus with hemoglobin A1c goal of less than 7.0% (HCC) Use up to 2 times a day E11.9 100 Strip 11 04/15/20 22 Active Spotfav Reporting TechnologiesTouch UltraSoft LancetsIndicatio ns:Type 2 diabetes mellitus with [...] 02/04/2025 12:00 PM EDT [facility] [address] [place] [phone] [place], [facility] [address] [place] [address] 02/05/2025 9:30 AM EDT Pharmacy Pharmacy Hematology Oncology [place] [address] [place] [address] [facility] [place], [facility] Clinic Hem/Onc [address] [place] [address] 02/05/2025 11:30 AM EDT Immunization/Inj ection Hematology/Onco logy Treatment, [place] [address] [place] [address] Nimo Chair 10 Hem Onc Scenery [address] [facility] [place] [address] 03/04/2025 9:00 AM EDT Office Visit Orthopaedics [facility] [address] [place] [address] Javed Salas, [address] [place] [address] 03/04/2025 9:45 AM EDT Imaging Radiology [address] [place] [address] 03/04/2025 11:00 AM EDT Imaging Radiology [address] [place] [address] 03/14/2025 11:00 AM EDT Office Visit Hematology/Onco logy Patrick Suero [place] [address] [place] [phone] Marquis Christiansen MD [address] [place] [address] 04/01/2025 1:00 PM EDT Hospital Encounter ENDO [facility], Endoscopy Room [facility] [address] [place] [phone] Amilcar Duran MD [address] [place] [address] 04/01/2025 1:00 PM EDT - 04/01/2025 1:30 PM EDT Surgery ENDO [facility], Endoscopy Room [facility] [address] [place] [address] Amilcar Duran MD [address] [place] [address] ESOPHAGOGASTRODUODENOSCOPY (EGD), FLEXIBLE, TRANSORAL, DIAGNOSTIC 06/24/2025 8:30 AM EDT Office Visit Cardiology, [facility] [address] [place] [address] Homar Ware PA-C [address] [place] [address] Scheduled Procedures Name Priority Associated Diagnoses Date/Ti [...] Discussed due to patient's condition Care Teams Project Designer Relationship Specialty Start Date End Date Rowena Banks PA-C [address] [place] [address] PCP - General Physician Metal Roofing Mechanic 06/01/22 documented as of this encounter
--- OUTSIDE RECORDS SUMMARY | 2025-04-07 11:45 | External Medical Summary ---
Author Name Unknown Address Unknown Organization K01:LABORATORY [facility] - [address] [place] [address] Laboratory Report Ordering Provider Test Date Status 01/07/2025 13:33:41 Final Observation Date Value Abnormality Reference (Units) Status Bacteria identified in Specimen by Culture 01/07/2025 13:33:41 No significant growth Final Test: Culture, Urine, Quanti tative
Specimen Source: Urine, Clean Catch
Specimen Type: Urine
Specimen Date: 01/07/2025 1333
Result Date: 01/08/2025 1728
Result Status: Final result
Resulting Lab: [facility]
[address]
[place] [address]

CULTURE

No significant growth

null Performing Location LAB[facility]ATORY [facility] - [address] [place] [address]
--- OUTSIDE RECORDS SUMMARY | 2025-04-07 11:45 | External Medical Summary ---
Author Name Unknown Address Unknown Organization : Laboratory Report Ordering Provider Test Date Status 01/07/2025 13:27:00 Final Observation Date Value Abnormality Reference (Units ) Status Color of Urine by Auto 01/07/2025 13:27:00 Yellow Light Yellow, Yellow Final Clarity, Urine 01/07/2025 13:27:00 Clear Clear Final Glucose [Mass/volume] in Urine by Automated test strip 01/07/2025 13:27:00 Negative Negative (mg/dL) Final Bilirubin.total [Presence] in Urine by Automated test strip 01/07/2025 13:27:00 Negative Negative Final Ketones [Mass/volume] in Urine by Automated test strip 01/07/2025 13:27:00 Negative Negative (mg/dL) Final Specific gravity, Urine 01/07/2025 13:27:00 1.020 1.003-1.030 Final Hemoglobin [Presence] in Urine by Automated test strip 01/07/2025 13:27:00 Negative Negative Final pH, Urine 01/07/2025 13:27:00 6.0 5.0, 5.5, 6.0, 6.5, 7.0, 7.5 (units) Final Protein [Mass/volume] in Urine by Automated test strip 01/07/2025 13:27:00 30 Abnormal Negative (mg/dL) Final Urobilinogen, Urine 01/07/2025 13:27:00 0.2 0.2, 1.0 (mg/dL) Final Nitrite [Presence] in Urine by Automated test strip 01/07/2025 13:27:00 Negative Negative Final Leukocyte esterase [Presence] in Urine by Automated test strip 01/07/2025 13:27:00 Small Abnormal Negative Final Performing Location
--- OUTSIDE RECORDS SUMMARY | 2025-04-07 11:46 | External Medical Summary | Summary of Care ---
Author Name Unknown Organization [facility] Address [address] [facility] [address] Phone [phone] Care Team Providers Care Diesel Mechanic Apprentice Name Role Phone Rowena Banks PA-C Primary Care Provider [phone] Reason for Visit * Reason Comments IV Therapy Hydration Encounter Details Date Type Department Care Team (Late st Contact Info) Description 12/24/2024 2:30 PM EST Hem/Onc Treatment Hematology/Oncology Treatment, [place] [address] [phone] Nimo, Chair 3 Hem Onc Scenery [address] [place] [address] B12 deficiency* Allergies Active Allergy Reactions Criticality [...] as of this encounter (statuses as of 12/25/2024) Medications COMBIGAN 0.2-0.5 % ophthalmic solution Instill [...] or Wheezing. 8.5 g 11 024 Active oxyCODONE-Aceta minophen 5-325 MG Oral Tablet (Percocet)Indic ations:Carcinom a of left breast metastatic to axillary lymph node (HCC),Pain of left upper extremity Take 1 Tablet by mouth every 4 hours as needed for Pain, Severe. 18 Tablet 024 Active DULoxetine HCl 60 MG Oral [...] evening meals. 180 Tablet 3 024 Active Additional Information Patient not taking.Reported on 12/18/2024 Fluticasone Propionate 50 MCG/ACT Nasal Suspension (Flonase)Indica [...] at dinner. 120 Capsule 5 024 Active Famotidine 20 MG Oral Tablet (Pepcid) Take [...] for Nausea. 30 Tablet 3 024 Active Gabapentin 300 MG Oral Capsule (Neurontin) Take 2 Capsules by mouth at bedtime 60 Capsule 025 Active Ondansetron HCl 8 MG Oral Tablet (Zofran)Indicat ions: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),Malignant neoplasm of upper-outer quadrant of left breast in female, estrogen receptor positive (HCC) Take 1 Tablet by mouth every 8 hours as needed for Nausea. 30 Tablet 3 025 Active hydrALAZINE HCl 25 MG Oral Tablet (Apresoline)Ind ications:HTN, goal below 140/90 Take 1 Tablet by mouth in the morning and 1 Tablet at noon and 1 Tablet before bedtime. 270 Tablet 3 024 2024 Discontinued Losartan Potassium 100 MG Oral Tablet (Cozaar) Take 1 Tablet by mouth in the morning. 90 Tablet 3 025 2024 Discontinued Hospital, Clinic, or Other Facility Administered Medication Ordered Dose Route Frequency Start Date End Date Status albuterol sulfate (PROVENTIL) (2.5 MG/3ML) 0.083% inhalation solution 2.5 mgIndications:Restrictive lung disease,SOB (shortness of breath) 2.5 mg NEBULIZER Q4H PRN 11/07/2017 Act roe documented as of this encounter (statuses as of 12/25/2024) Active Problems Problem Noted Date Diagnosed Date [...] as of this encounter (statuses as of 12/25/2024) Resolved Problems Problem Noted Date Diagnosed Date [...] as of this encounter (statuses as of 12/25/2024) Immunizations Name Administration Dates Next Due COVID-19 [...] Nursing Notes * Kay Wilson RN - 12/24/2024 5:01 PM EST Goals: Patient will remain free from injury. Possible barriers to meeting goals: ambulating with IV pole Stability of the patient: Moderately stable - low risk of patient condition declining or worsening Summary regarding today's goals: Met: pt remained free of harm today Patient tolerated treatment well without any acute issues or problems. Patient left facility in stable condition and denied any further needs. * Kay Wilson RN - 12/24/2024 3:33 PM EST Chair 1. IV inserted by PATRICIA RN. Patient saw PAULINO Hollingsworth and was added for 1L NSS today since she has not been eating and drinking well lately. Saline started. Patient is comfortable at this time and denies further needs. Patient instructed on use of heat and massage functions where applicable. Patient shown how to operate the heat function of the chair and to alert nursing staff if the chair feels too warm. Patient instructed on the risk of potential yao while using the heat function. Safety and Risk for Injury Patient will remain free from injury. Ensure appropriate safety devices are available. Provide and maintain safe environment. documented in this encounter Plan of Treatment Upcoming Encounters Date Type Department Care Team (Latest Contact Info) Description 01/07/2025 8:00 AM EST Laboratory Laboratory, [facility] [address] [place] [phone] Mavis Rainey [address] [place] [address] 01/08/2025 9:30 AM EST Pharmacy Pharmacy Hematology Oncology [facility] [address] [place] [address] [facility] [place] [facility] Hem/Onc [address] [place] [facility] [place] [address] 01/08/2025 10:15 AM EST Immunization/Inj ection Hematology/Onco logy [address], [address] [phone] 01/24/2025 8:00 AM EST Laboratory Laboratory, [facility] [address] [facility] [phone] [facility] [address] [place] [address] 01/25/2025 12:45 PM EST Immunization/Inj ection Hematology/Onco logy Treatment, [address] [phone] 03/04/2025 9:45 AM EDT Imaging Radiology [address] [place] [phone] 03/04/2025 11:00 AM EDT Imaging Radiology [address] [place] [phone] 03/11/2025 10:45 AM EDT Office Visit Orthopaedics [facility] [address] [place] [phone] Javed Salas S, DO [address] [place] [phone] 03/14/2025 11:00 AM EDT Office Visit Hematology/Onco logy [place] [address] [address] [place] [phone] Marquis Christiansen MD [address] [place] [address] [place] [address] 04/01/2025 1:00 PM EDT Hospital Encounter ENDO [facility], Endoscopy Room [facility] [address] [place] [address] Amilcar Duran MD [address] [place] [address] 04/01/2025 1:00 PM EDT - 04/01/2025 1:30 PM EDT Surgery ENDO [facility], Endoscopy Room [facility] [address] [place] [address] Amilcar Duran MD [address] [place] [address] ESOPHAGOGASTRODUODENOSCOPY (EGD), FLEXIBLE, TRANSORAL, DIAGNOSTIC 06/24/2025 8:30 AM EDT Office Visit Cardiology, [facility] [address] [place] [address] Homar Ware PA-C [address] [place] [address] Scheduled Procedures Name Priority Associated Diagnoses Date/Ti [...] 11/29/2024, Additional history exists Colonoscopy 02/28/2028 02/27/2018, 07/2018, [...] MAR Action Action Date Dose Rate Site NSS infusion FOR HYDRATION Intravenous, at 500 mL/hr Administer over 2 Hours, ONCE, 1 dose, On 12/24/24 at 1530Indications:B12 deficiency Start Infusion 12/24/2024 2:53 PM EST 1,000 mL 500 mL/hr documented in this encounter Advance Directives * [...] Discussed due to patient's condition Care Teams Diesel Mechanic Apprentice Relationship Specialty Start Date End Date Rowena Banks PA-C PCP - General Physician Manager [employer] 06/01/22 documented as of this encounter
--- OUTSIDE RECORDS SUMMARY | 2025-04-07 11:46 | External Medical Summary ---
Author Name Unknown Address Unknown Organization K01:LABORATORY [facility] - [address] [facility] [place] [address] Laboratory Report Ordering Provider Test Date Status DINESH MOBLEY 01/07/2025 07:57:44 Final Observation Date Value Abnormality Reference (Units ) Status BUN 01/07/2025 07:57:44 12 6-20 (mg/dL) Final Creatinine 01/07/2025 07:57:44 1.0 0.5-1.0 (mg/dL) Final Glomerular filtration rate/1.73 sq M.predicted [Volume Rate/Area] in Serum, Plasma or Blood by Creatinine-based formula (CKD-EPI) 01/07/2025 07:57:44 60 >=60 (mL/min) Final eGFR is calculated based on the CKD-EPI 2020 equation. Sodium 01/07/2025 07:57:44 135 135-146 (m mol/L) Final Potassium 01/07/2025 07:57:44 4.4 3.5-5.1 (m mol/L) Final Cl 01/07/2025 07:57:44 101 98-107 (mm ol/L) Final CO2 01/07/2025 07:57:44 23 22-32 (mmo l/L) Final Anion gap 01/07/2025 07:57:44 11 7-15 (mmol /L) Final Glucose 01/07/2025 07:57:44 161 Above high normal 70 -120 (mg/dL) Final Albumin 01/07/2025 07:57:44 4.1 3.8-5.0 (g /dL) Final AST (Aspartate aminotransferase) 01/07/2025 07:57:44 24 10-35 (U/L) Fin al Alk Phos 01/07/2025 07:57:44 473 Above high normal 35 -130 (U/L) Final Bilirubin, Total 01/07/2025 07:57:44 0.5 <=1 .2 (mg/dL) Final Calcium 01/07/2025 07:57:44 7.5 Below low normal 8.4 -10.2 (mg/dL) Final Protein 01/07/2025 07:57:44 6.8 6.0-8.3 (g /dL) Final ALT (Alanine aminotransferase) 01/07/2025 07:57:44 10 10-35 (U/L) Charan bridges Performing Location LABORATORY [facility] - [address] [facility] [address]
--- OUTSIDE RECORDS SUMMARY | 2025-04-07 11:46 | External Medical Summary | Summary of Care ---
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) Procedures [place] INJECTION, FULVESTRANT Marquis Christiansen MD [address] [place] [address] Phone: tel: fax: Hematology/Oncology Treatment, [address] [address] Phone: tel: fax: Referral ID Status Reason Start Date Expiration Date V isits Requested Visits Authorized [id number] Authorized 03/15/2024 11/20/2099 [id number] Encounter Details Date Type Department Care Team (Late st Contact Info) Description 12/11/2024 10:15 AM EST Immunization/I njection Hematology/Oncology Treatment, [address] [address] Carcinoma of left breast metastatic [...] as of this encounter (statuses as of 12/30/2024) Medications COMBIGAN 0.2-0.5 % ophthalmic solution Instill 1 Drop into both eyes in the morning and 1 Drop before bedtime. 019 Active Naproxen Sodium 550 MG Oral Tablet TAKE 1 TABLET BY MOUTH TWICE A DAY WITH BREAKFAST AND DINNER 180 Tablet 1 023 Active aspirin enteric coated 81 MG TBEC Take 1 Tablet by mouth in the morning. 020 Active EllipticTouch Verio w/Device KitIndications: Type 2 diabetes mellitus with hemoglobin A1c goal of less than 7.0% (HCC) Use up to twice times a day E11.9 1 Kit 022 Active EllipticTouch Verio In Vitro Strip (Glucose Blood)Indicatio ns:Type 2 diabetes mellitus with hemoglobin A1c goal of less than 7.0% (HCC) Use up to 2 times a day E11.9 100 Strip 11 022 Active EllipticTouch UltraSoft LancetsIndicati ons:Type 2 diabetes mellitus with [...] Active Additional Information Patient not taking.Reported on 11/20/2024 Fluticasone Propionate 50 MCG/ACT Nasal Suspension (Flonase)Indica [...] mouth at bedtime 60 Capsule 025 Active Losartan Potassium 100 MG Oral Tablet (Cozaar)Indicat ions:HTN, goal below 140/90 Take 1 Tablet by mouth in the morning. 90 Tablet 3 024 2024 Discontinued(M edication List Clean Up) Lubiprostone 24 MCG Oral Capsule (Amitiza) Take 1 Capsule by mouth 2 times a day with morning and evening meals. 60 Capsule 5 024 2024 Discontinued(M edication List Clean Up) SITagliptin Phosphate 50 MG Oral Tablet (Januvia) Take 1 Tablet by mouth in the morning. 90 Tablet 1 024 2024 Discontinued(M edication List Clean Up) hydrALAZINE HCl 25 MG Oral Tablet (Apresoline)Ind ications:HTN, goal below 140/90 Take 1 Tablet by mouth in the morning and 1 Tablet at noon and 1 Tablet before bedtime. 270 Tablet 3 024 2024 Discontinued Hospital, Clinic, or Other Facility Administered Medication Ordered Dose Route Frequency Start Date End Date Status albuterol sulfate (PROVENTIL) (2.5 MG/3ML) 0.083% inhalation solution 2.5 mgIndications:Restrictive lung disease,SOB (shortness of breath) 2.5 mg NEBULIZER Q4H PRN 11/07/2017 Act roe documented as of this encounter (statuses as of 12/30/2024) Active Problems Problem Noted Date Diagnosed Date [...] as of this encounter (statuses as of 12/30/2024) Resolved Problems Problem Noted Date Diagnosed Date [...] as of this encounter (statuses as of 12/30/2024) Immunizations Name Administration Dates Next Due COVID-19 [...] Nursing Notes * Tameka Loco LPN - 12/11/2024 10:25 AM EST Pt arrived for Faslodex and vitamin b12 injection. Administered in R deltoid and B/L dorsogluteal. Pt tolerated well. To return in 4 weeks. Discharged in stable condition. documented in this encounter Plan of Treatment Upcoming Encounters Date Type Department Care Team (Latest Contact Info) Description 01/07/2025 8:00 AM EST [facility] [address] [place] [phone] [place] [facility] [address] 01/08/2025 9:30 AM EST Pharmacy Pharmacy Hematology Oncology [place] [address] [place] [address] [facility], [facility] Hem/Onc [address] [place] [address] 01/08/2025 10:15 AM EST Immunization/Inj ection Hematology/Onco [place]y [address], [address] [address] 01/24/2025 8:00 AM EST Laboratory Laboratory, [facility] [address] [place] [address] [place] [address] [facility] [address] 01/25/2025 12:45 PM EST Immunization/Inj ection Hematology/Onco logy [address], [address] [phone] 03/04/2025 9:00 AM EDT Office Visit Orthopaedics [facility] [address] [place] [phone] Javed Salas, [address] [place] [address] 03/04/2025 9:45 AM EDT Imaging Radiology [address] [place] [address] 03/04/2025 11:00 AM EDT Imaging Radiology [address] [place] [address] 03/14/2025 11:00 AM EDT Office Visit Hematology/Onco logy [facility] [address] [facility] [place] [phone] Marquis Christiansen MD [address] [facility] [place] [address] 04/01/2025 1:00 PM EDT Hospital Encounter ENDO [facility], Endoscopy Room [facility] [address] [place] [address] Amilcra Duran MD [address] [place] [address] 04/01/2025 1:00 PM EDT - 04/01/2025 1:30 PM EDT Surgery ENDO [facility], Endoscopy Room [facility] [address] [place] [address] Amilcar Duran MD [address] [place] [address] ESOPHAGOGASTRODUODENOSCOPY (EGD), FLEXIBLE, TRANSORAL, DIAGNOSTIC 06/24/2025 8:30 AM EDT Office Visit Cardiology, [facility] [address] [place] [address] Homar Ware PA-C [address] [place] [address] Scheduled Procedures Name Priority Associated Diagnoses Date/Ti [...] 500 mg 500 mg, Intramuscular, ONCE, On Tue12/11/24 at 1030, For 1 doseIndications:Carcin chela of left breast metastatic to axillary lymph node (HCC) Given 12/11/2024 10:11 AM EST 500 mg Dorsogluteal Right Vitamin B-12 (Cyanocobalamin) inj 1,000 mcg 1,000 mcg, Intramuscular, ONCE, On Tue12/11/24 at 1015, For 1 doseIndications:B12 deficiency Given 12/11/2024 10:08 AM EST 1,000 mcg Arm Right Upper documented in this encounter Additional Health Concerns [...] Discussed due to patient's condition Care Teams Transit Mixer Operator Relationship Specialty Start Date End Date Rowena Banks PA-C PCP - General Physician [employer] Specialist 06/01/22 documented as of this encounter
--- OUTSIDE RECORDS SUMMARY | 2025-04-07 11:46 | External Medical Summary | Summary of Care ---
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 180 Tablet 3 06/04/20 24 Active Additional Information Patient not taking.Reported on 12/18/2024 Fluticasone Propionate 50 MCG/ACT Nasal Suspension (Flonase)Indicat [...] dinner. 120 Capsule 5 10/08/20 24 Active Famotidine 20 MG Oral Tablet (Pepcid) Take 1 Tablet by mouth in the morning and 1 Tablet before bedtime. 180 Tablet 3 10/11/20 24 Active Esomeprazole Magnesium 40 MG Oral Capsule Delayed Release Take 1 Capsule by mouth daily before breakfast. 90 Capsule 3 10/11/20 24 Active hydrALAZINE HCl 25 MG Oral Tablet (Apresoline)Sharee cations:HTN, goal below 140/90 Take 1 Tablet by mouth in the morning and 1 Tablet at noon and 1 Tablet before bedtime. 270 Tablet 3 10/12/20 24 Active oxyCODONE HCl 5 MG Oral [...] mouth in the morning. 90 Tablet 3 12/19/19 25 Active Hospital, Clinic, or Other Facility [...] Department Care Team (Latest Contact Info) Description 12/25/2024 8:00 AM EST Office Visit Cardiology, [facility] [address] [place] [address] Homar Ware PA-C [address] [place] [address] 01/07/2025 8:00 AM EST Laboratory Laboratory, [address] [place] [phone] [facility] [address] [place] [address] 01/08/2025 9:30 AM EST Pharmacy Pharmacy Hematology Oncology [place] [address] [place] [address] [facility] Hem/Onc [address] [place] [address] 01/08/2025 10:15 AM EST Immunization/Inj ection Hematology/Onco logy Treatment, [place] [address] [facility], [place] [phone] 01/24/2025 8:00 AM EST Laboratory Laboratory, [place] [address] [place] [phone] [facility] [address] [place] [address] 01/25/2025 12:45 PM EST Immunization/Inj ection Hematology/Onco logy Treatment, [address], [place] [phone] 03/04/2025 9:45 AM EDT Imaging Radiology [address] [place] [address] 03/04/2025 11:00 AM EDT Imaging Radiology [address] [place] [address] 03/11/2025 10:45 AM EDT Office Visit Orthopaedics [facility] [address] [place] [address] Javed Salas, [address] [place] [address] 03/14/2025 11:00 AM EDT Office Visit Hematology/Onco logy [facility] [address] [place] [phone] Marquis Christiansen MD [address] [place] [address] 04/01/2025 1:00 PM EDT Hospital Encounter ENDO [facility], Endoscopy Room [facility] [address] [place] [phone] Amilcar Duran MD [address] [place] [address] 04/01/2025 1:00 PM EDT - 04/01/2025 1:30 PM EDT Surgery ENDO [facility], Endoscopy Room [facility] [address] [place] [address] Amilcar Duran MD [address] [place] [address] ESOPHAGOGASTRODUODENOSCOPY (EGD), FLEXIBLE, TRANSORAL, DIAGNOSTIC Scheduled Procedures Name Priority Associated Diagnoses Date/Ti [...] 11/29/2024, Additional history exists Colonoscopy 02/28/2028 02/27/2018, 040 [...] Date/Time Associated Diagnosis Comments DIFFERENTIAL, AUTOMATED STAT 12/24/2024 1:30 PM EST 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) Metastasis to bone (HCC) Malignant neoplasm of upper-outer quadrant of left breast in female, estrogen receptor positive (HCC) COMPREHENSIVE METABOLIC PANEL STAT 12/24/2024 1:30 PM EST 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) Metastasis to bone (HCC) Malignant neoplasm of upper-outer quadrant of left breast in female, estrogen receptor positive (HCC) CBC STAT 12/24/2024 1:30 PM EST 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) Metastasis to bone (HCC) Malignant neoplasm of upper-outer quadrant of left breast in female, estrogen receptor positive (HCC) CBC STAT 12/24/2024 1:30 PM EST 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) Metastasis to bone (HCC) Malignant neoplasm of upper-outer quadrant of left breast in female, estrogen receptor positive (HCC) MAGNESIUM STAT 12/24/2024 1:30 PM EST 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) Metastasis to bone (HCC) Malignant neoplasm of upper-outer quadrant of left breast in female, estrogen receptor positive (HCC) documented in this encounter Results * DIFFERENTIAL, AUTOMATED (12/24/2024 1:30 PM EST) WBC 5.64 4.00 - 10.80 K/uL 12/24/2024 1:38 PM [facility] 56-02 Neutrophils % 71.3 40.0 - 75.0 % 12/24/2024 1:38 PM [facility] 56-02 Lymphocytes % 19.5 18.0 - 42.0 % 12/24/2024 1:38 PM [facility] 56-02 Monocytes % 6.6 1.0 - 11.0 % 12/24/2024 1:38 PM [facility] 56-02 Eosinophils % 1.4 0.0 - 6.0 % 12/24/2024 1:38 PM [facility] 56-02 Basophils % 1.2 0.0 - 2.0 % 12/24/2024 1:38 PM [facility] 56-02 Absolute Neutrophils 4.02 1.80 - 7.70 K/uL 12/24/2024 1:38 PM [facility] 56-02 Absolute Lymphocytes 1.10 1.00 - 4.80 K/ul 12/24/2024 1:38 PM [facility] 56-02 Absolute Monocytes 0.37 0.00 - 1.10 K/uL 12/24/2024 1:38 PM [facility] 56-02 Absolute Eosinophils 0.08 0.00 - 0.70 K/uL 12/24/2024 1:38 PM [facility] 56-02 Absolute Basophils 0.07 0.00 - 0.20 K/uL 12/24/2024 1:38 PM [facility] 56-02 Blood Venous blood specimen / Unknown Venipuncture / Unknown 12/24/2024 1:30 PM EST 12/24/2024 1:30 PM EST us Marquis Christiansen MD LAB BLOOD ORDERABLES Final Res ult [facility] 56-[address] [place] [address] * (ABNORMAL) CBC (12/24/2024 1:30 PM EST) Pathologist [facility] WBC 5.64 4.00 - 10.80 K/uL 12/24/2024 1:38 PM EST [facility] 56-02 RBC 2.94 3.85 - 5.15 M/uL 12/24/2024 1:38 PM [facility] 56-02 HGB 10.6(L) 12.0 - 15.3 g/dL 12/24/2024 1:38 PM [facility] 56-02 HCT 32.1(L) 36.0 - 45.2 % 12/24/2024 1:38 PM [facility] 56-02 MCV 109.2 81.5 - 97.5 fL 12/24/2024 1:38 PM [facility] 56-02 MCH 36.1 27.0 - 34.0 pg 12/24/2024 1:38 PM [facility] 5602 MCHC 33.0 32.0 - 36.0 g/dL 12/24/2024 1:38 PM [facility] 5602 RDW 13.8 11.5 - 15.5 % 12/24/2024 1:38 PM [facility] 5602 PLT 188 140 - 400 K/uL 12/24/2024 1:38 PM [facility] 5602 MPV 9.9 6.6 - 11.1 fL 12/24/2024 1:38 PM [facility] 5602 Blood Venous blood specimen / Unknown Venipuncture / Unknown 12/24/2024 1:30 PM EST 12/24/2024 1:30 PM EST Marquis Christiansen MD LAB BLOOD ORDERABLES Final Res ult [facility] 56-02 [address] [place] [address] * MAGNESIUM (12/24/2024 1:30 PM EST) Magnesium 2.5 1.5 - 2.6 mg/dL 12/24/2024 1:54 PM EST [facility] 56-02 Blood Venous blood specimen / Unknown Venipuncture / Unknown 12/24/2024 1:30 PM EST 12/24/2024 1:30 PM EST us Marquis Christiansen MD LAB BLOOD ORDERABLES Final Res ult [facility] [address] [place] [address] * (ABNORMAL) COMPREHENSIVE METABOLIC PANEL (12/24/2024 1:30 PM EST) BUN 21(H) 6 - 20 mg/dL 12/24/2024 1:54 PM [facility] 56 CREATININE 1.0 0.5 - 1.0 mg/dL 12/24/2024 1:54 PM [facility] 56 EGFR 60 >=60 mL/min 12/24/2024 1:54 PM [facility] 56 Comment:eGFR is calculated b ased on the CKD-EPI 2020 equation. SODIUM 139 135 - 146 mmol/L 12/24/2024 1:54 PM [facility] 56 POTASSIUM 4.6 3.5 - 5.1 mmol/L 12/24/2024 1:54 PM [facility] 56 CHLORIDE 106 98 - 107 mmol/L 12/24/2024 1:54 PM [facility] 56 CO2 23 22 - 32 mmol/L 12/24/2024 1:54 PM [facility] 56 ANION GAP 10 7 - 15 mmol/L 12/24/2024 1:54 PM [facility] 56 GLUCOSE 101 70 - 120 mg/dL 12/24/2024 1:54 PM [facility] 56 Albumin 4.2 3.8 - 5.0 g/dL 12/24/2024 1:54 PM [facility] 56 AST 24 10 - 35 U/L 12/24/2024 1:54 PM [facility] 56- Alkaline Phosphatase 430(H) 35 - 130 U/L 12/24/2024 1:54 PM [facility] 56- Bilirubin, Total 0.5 <=1.2 mg/dL 12/24/2024 1:54 PM [facility] 56- CALCIUM 8.7 8.4 - 10.2 mg/dL 12/24/2024 1:54 PM [facility] 56- Protein 7.6 6.0 - 8.3 g/dL 12/24/2024 1:54 PM [facility] 56- ALT 7(L) 10 - 35 U/L 12/24/2024 1:54 PM EST [facility] 56-02 Blood Venous blood specimen / Unknown Venipuncture / Unknown 12/24/2024 1:30 PM EST 12/24/2024 1:30 PM EST us Marquis Christiansen MD LAB BLOOD ORDERABLES Final Res ult [facility] 56-[address] [place] [address] documented in this encounter Visit Diagnoses Diagnosis [...] Discussed due to patient's condition Care Teams Door Liner Relationship Specialty Start Date End Date Rowena Banks PA-C PCP - General Physician [employer] Instructor 06/01/22 documented as of this encounter
--- OUTSIDE RECORDS SUMMARY | 2025-04-07 11:46 | External Medical Summary | Summary of Care ---
Author Name Unknown Organization [facility] Address [address] [facility] [place] [address] Phone [phone] Care Team Providers Care Developmental Mathematics Professor Name Role Phone Rowena Banks PA-C Primary Care Provider [phone] Reason for Visit * Reason Comments Follow Up Encounter Details Date Type Department Care Team (Late st Contact Info) Description 12/25/2024 8:00 AM EST Office Visit Cardiology, [facility] [address] [place] [address] Homar Ware PA-C [address] [place] [id number] Hypotension due to drugs*; Hyperlipidemia with target LDL less than 70; Chronic diastolic congestive heart failure (HCC); Carotid stenosis, non-symptomatic, bilateral; Type 2 diabetes mellitus with hemoglobin A1c goal of less than 7.0% ([facility]) Allergies Active Allergy Reactions Criticality Noted Date [...] as of this encounter (statuses as of 12/26/2024) Medications COMBIGAN 0.2-0.5 % ophthalmic solution Instill [...] day E11.9 100 Strip 11 022 Active Pace4LifeTouch UltraSoft LancetsIndicati ons:Type 2 diabetes mellitus with [...] for Nausea. 30 Tablet 3 025 Active Losartan Potassium 100 MG Oral Tablet (Cozaar) Take 0.5 Tablets by mouth in the morning. 025 Active hydrALAZINE HCl 25 MG Oral [...] as of this encounter (statuses as of 12/26/2024) Active Problems Problem Noted Date Diagnosed Date [...] as of this encounter (statuses as of 12/26/2024) Resolved Problems Problem Noted Date Diagnosed Date [...] as of this encounter (statuses as of 12/26/2024) Immunizations Name Administration Dates Next Due COVID-19 [...] Sign Reading Time Taken Comments Blood Pressure 96/52 12/25/2024 7:57 AM EST Pulse 80 12/25/2024 7:57 AM EST Temperature - - Respiratory Rate 14 12/25/2024 7:57 AM EST Oxygen Saturation - - Inhaled Oxygen Concentration - - Weight 101.2 kg (223 lb) 12/25/2024 7:57 AM EST Height - - Body Mass Index 38.28 11/20/2024 10:08 AM EST documented in this encounter Progress Notes * Homar Ware PA-C - 12/25/2024 7:50 AM EST History of Present Illness: Sarah Burgos is a 69 year old female here today for routine cardiologyfollow-up evaluation. Last visit to this office was on 08/10/2023. 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 Blood pressure running low. Taking hydralazine 25 mg once daily in the AM. Also on Losartan 100 mg/day and Carvedilol 6.25 twice a day. Diarrhea from New Years Zina x 2 weeks. Received IV fluids via Hem/Onc yesterday. Hard time breathing some days. Stable orthopnea. No PND. No chest pain. No palpitations. No edema. No syncope. No fevers or chills. No epistaxis, hemoptysis, melena, hematochezia, or hematuria. Patient Active Problem List Diagnosis Type 2 diabetes mellitus with hemoglobin A1c goal of less than 7.0% (HCC) Hyperlipidemia with target LDL less than 70 Fibromyalgia Vitamin D deficiency HTN, goal below 140/90 Major depressive disorder, recurrent episode, moderate (HCC) Fatty liver disease, nonalcoholic Ventral hernia Left ventricular hypertrophy Gastroesophageal reflux disease without esophagitis Irritable bowel syndrome with both constipation and diarrhea Restrictive lung disease Glaucoma of right eye Malignant neoplasm of upper-outer quadrant of left breast in female, estrogen receptor positive (HCC) 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) Encounter for care related to vascular access port History of breast cancer BRCA negative Carotid stenosis, non-symptomatic, bilateral HLA B27 (HLA B27 positive) Primary osteoarthritis of both knees Chronic diastolic congestive heart failure (HCC) Hypertensive heart disease with chronic diastolic congestive heart failure (HCC) History of small bowel obstruction B12 deficiency Past Medical History: Diagnosis Date CODIE inhibitor [...] 09/2010 Past Surgical History: Procedure Laterality Date ARTHOJAYANT,W/ROTATOR CUFF 05/28/13 Dr Louis BREAST LESION,OTHER,EXCISION Bilateral 1980s Benign @ [facility] DELIVERY 1985 - emergency COLONOSCOPY, DIAGNOSTIC (RECTUM) 03/21/2012 COLONOSCOPY FLEXIBLE PROXIMAL DIAGNOSTIC performed by SHANTELL BRICE at ENDOSCOPY [facility] COLONOSCOPY, DIAGNOSTIC (RECTUM) 02/27/2018 normal, repeat 10 yrs/COLONOSCOPY FLEXIBLE PROXIMAL DIAGNOSTIC performed by Amilcar Duran MD at ENDOSCOPY [facility] EGD, FLEXIBLE, DIAGNOSTIC 01/24/2014 ESOPHAGOGASTRODUODENOSCOPY (EGD), FLEXIBLE, TRANSORAL, DIAGNOSTIC performed by Shantell Brice DO at ENDOSCOPY [facility] EGD, FLEXIBLE, DIAGNOSTIC 11/07/2014 mild-mod inflammation/ESOPHAGOGASTRODUODENOSCOPY (EGD), FLEXIBLE, TRANSORAL, DIAGNOSTIC performed by Amilcar Duran MD at ENDOSCOPY [facility] EGD, FLEXIBLE, DIAGNOSTIC 07/25/2019 acid reflux / [facility] GRAFT RIB CARTILAGE TO FACE/EAR/NOS N/A 08/12/2016 GRAFT RIB CARTILAGE TO FACE performed by Shea Alexandra MD at [place] [facility] INFORMATION 1996 lap HH repair INFORMATION 1997 emergency ulcer surgery INFORMATION 2000 10 hernia repairs with mesh INFORMATION 1976 ovarian cysts removed INFORMATION 1996 incidental cholecystectomy INFORMATION age 25 repair broken nose and R cheek bone IR BIOPSY 03/07/2024 L-/S-SPINE PARAVERTEBRAL FACET INJ,1 LEVEL 08/17/2023 L-/S-SPINE PARAVERTEBRAL FACET INJ, 1 LEVEL performed by Facundo Benitez DO at OR [facility] L-/S-SPINE PARAVERTEBRAL FACET INJ,1 LEVEL 10/19/2023 L-/S-SPINE PARAVERTEBRAL FACET INJ, 1 LEVEL performed by Facundo Benitez DO at OR [facility] PFT B/A 10/2014 normal RECONSTRUCTION OF NOSE/SEPTUM N/A 08/12/2016 RHINOPLASTY COMPLETE INCLUDING MAJOR SEPTAL REPAIR performed by Shea Alexandra MD at OR [facility] REMOVAL OF APPENDIX Appendectomy REMOVE TONSILS & ADENOIDS, AGE 12+ 1981 Tonsillectomy/Adenoids,12+ Y/O SACROILIAC JOINT INJECT W/GUIDANCE 09/25/2018 INJECTION SACROILIAC JOINT performed by Facundo Benitez DO at OR [facility] SACROILIAC JOINT INJECT W/GUIDANCE 06/04/2019 INJECTION SACROILIAC JOINT performed by Facundo Benitez DO at OR [facility] SACROILIAC JOINT INJECT W/GUIDANCE 12/08/2022 INJECTION SACROILIAC JOINT performed by Facundo Benitez DO at OR [facility] SKIN TISSUE REARRANGEMENT Bilateral 08/30/2023 SKIN TISSUE REARRANGEMENT performed by Kody Perez MD at OR [facility] SKIN TISSUE REARRANGEMENT, ADD-ON Bilateral 08/30/2023 SKIN TISSUE REARRANGEMENT, ADD-ON performed by Kody Perez MD at OR [facility] THERAPEUTIC FRACTURE OF NOSE Bilateral 08/12/2016 FRACTURE OF NASAL TURBINATES THERAPEUTIC performed by Shea Alexandra MD at OR [facility] TOTAL ABD HYSTERECTOMY W/WO REMOVAL OF TUBE(S) 1989 no Ca, RITO w/ Bilateral Salpingo-Oophorectomy Family History Problem Relation Name Age of Onset Mental Disorder Mother cher dorsey Gastro-intestinal disorder Mother cher quintana sunita Hypertension Mother cher dorsey Obesity Mother cher dorsey Heart Disorder Mother cher dorsey Liver cancer Mother cher quintana sunita 77 Arthritis Father alejandro ritter hartet sr HLA B27 Heart Disorder Father alejandro g hartet sr bypass surgery Asthma Father alejandro g hartet sr Diabetes Father alejandro g hartet sr Allergies Father alejandro g hartet sr Hypertension Father alejandro ritter hartet sr Lung Disorder Father alejandro g hartet sr Stroke Father alejandro ritter hartet sr Heart Disorder Brother Alejandro Arthritis Brother Alejandro Thyroid Disorder Brother oren xionger Gastro-intestinal disorder Brother oren sunita Heart Disorder Brother oren sunita Eye Problems Brother oren dorsey Obesity Brother oren sunita Glaucoma Grandmother (Maternal) alaina delucaer Mental Disorder Grandmother (Maternal) alaina sotomayor Thyroid Disorder Grandmother (Paternal) nessa foley sunita Allergies Daughter katalina bryan Asthma Daughter katalina bryan Allergies Son Jim hayfever Allergies Son Adonay Lymphoma Niece Susan 48 Breast Cancer Cousin (Maternal) Sheryl 55 Breast Cancer Cousin (Maternal) Alaina Garcia 46 Breast Cancer Cousin (Maternal) Aracelis 40 Sheryl's daughter Breast Cancer Cousin (Maternal) Susan 46 Alaina Garcia's Daughter Breast Cancer Cousin (Paternal) Nessakeron Foley 60 Treasure's daughter Lymphoma Cousin (Paternal) Jessica 73 Breast Cancer Aunt (Maternal) Samina 62 Breast Cancer Aunt (Paternal) Treasure Lung cancer Uncle (Paternal) Alban[place] Roche's daughter Social History: to Gilberto. Three children. Reformed smoker, 2 ppd x 25 years. She quit in 1987. No alcohol. No illegal drug use. Lives in [place]. Complete Review of Systems is as stated above, negative, or noncontributory. Review of patient's allergies indicates: Allergen Reactions [...] 1 Tablet by mouth in the morning. Albuterol Sulfate HFA 108 (90 Base) MCG/ACT Inhalation Aerosol Solution Inhale 2 Puffs by mouth every 6 hours as needed for Shortness of Breath or Wheezing. 8.5 g 11 oxyCODONE-Acetaminophen 5-325 MG Oral Tablet (Percocet) Take 1 Tablet by mouth every 4 hours as needed for Pain, Severe. 18 Tablet 0 DULoxetine HCl 60 MG Oral Capsule Delayed [...] as needed for Nausea. 90 Tablet 2 Montelukast Sodium 10 MG Oral Tablet (Singulair) TAKE 1 TABLET BY MOUTH EVERY MORNING 90 Tablet 2 Carvedilol 6.25 MG Oral Tablet (Coreg) Take 1 Tablet by mouth 2 times a day with morning and evening meals. 180 Tablet 3 Fluticasone Propionate 50 MCG/ACT Nasal Suspension (Flonase) Administer 2 Sprays into each nostril daily as needed for Congestion. 48 mL 1 Cyclobenzaprine HCl 10 MG Oral Tablet (Flexeril) [...] mouth daily before breakfast. 90 Capsule 3 hydrALAZINE HCl 25 MG Oral Tablet (Apresoline) Take 1 Tablet by mouth in the morning and 1 Tablet at noon and 1 Tablet before bedtime. (Patient taking differently: Take 1 Tablet by mouth in the morning.) 270 Tablet 3 oxyCODONE HCl 5 MG Oral Tablet [...] by mouth at bedtime 60 Capsule 0 Ondansetron HCl 8 MG Oral Tablet (Zofran) Take 1 Tablet by mouth every 8 hours as needed for Nausea. 30 Tablet 3 Losartan Potassium 100 MG Oral Tablet (Cozaar) Take 1 Tablet by mouth in the morning. 90 Tablet 3 OneTouch Verio w/Device Kit Use up to twice times a day E11.9 1 Kit 0 OneTouch Verio In Vitro Strip (Glucose Blood) Use up to 2 times a day E11.9 100 Strip 11 OneTouch UltraSoft Lancets Use as directed 2 times a day as needed for Hyperglycemia (high sugar) or Hypoglycemia (low sugar). 100 Each 1 Current Facility-Administered Medications Medication Dose Route Frequency Provider Last Rate Last Admin albuterol sulfate (PROVENTIL) (2.5 MG/3ML) 0.083% inhalation solution 2.5 mg 2.5 mg Nebulizer Q4H PRStephan oTpete MD 2.5 mg at 11/15/17 1121 OBJECTIVE/PHYSICAL EXAMINATION: BP 96/52 | Pulse 80 | Resp 14 | Wt 101.2 kg (223 lb) | BMI 38.28 kg/m² | BSA 2.14 m² Blood pressure my evaluation was 94/58 General: No acute distress. Pleasant. Comfortable. Cooperative. HENT: Atraumatic. PER. Conjunctiva pink, sclera clear. Neck: Neck veins are flat. Heart: Regular rate and rhythm, 70 bpm. Grade I-II/ systolic murmur heard best at the left upper sternal border. No diastolic murmur. No rub. No gallop. PMI is nondisplaced. Lungs: Clear to auscultation. SpO2 96% on room air at rest Abdomen: +BS. Extremities: No lower extremity peripheral edema. No clubbing. No cyanosis. Limited neurological examination is without focal deficits. Pulses: Posterior tibial=2/4. Data: April 13, 2017 DSE Interpretation Summary (as per Dr. Rob): Patient underwent complete resting echocardiogram 04/02/2017; report of that study was available at time of today's testing. The dobutamine stress echocardiographic examination is normal without resting left ventricular wall motion abnormalities or inducible ischemia. Hypertensive baseline blood pressure with a hypertensive response to dobutamine infusion. Normal heart rate response to dobutamine infusion. September 08, 2022 Lexiscan Interpretation Summary (as per Dr. Espinoza): Myocardial perfusion imagingis normal. Overall left ventricular systolic function was normal without regional wall motion abnormalities. The left ventricular ejection fraction was 65%. There are no prior studies available for comparison. 2021 TTE Interpretation Summary (as per Dr. Espinoza): Compared to last available study, there has been no interval change. Normal LV chamber size with mild concentric LVH. Normal LV systolic function without regional wall motion abnormalities. Calculated LV ejection Fraction = 60% (bi-plane method of discs). Mild aortic valve sclerosis without stenosis. There is focal calcification of the posterior mitral valve annulus preserved leaflet mobility and coaptation. Mitral stenosis is absent. Significant mitral regurgitation is absent. July 2023 Carotid Duplex: Mild bilateral internal carotid artery disease. Lipid Panel Results: Results for orders placed or performed in visit on 01/16/24 LIPID PANEL WITH DIRECT LDL IF TG IS HIGH Result Value Ref Range Triglycerides 298 (H) <=174 mg/dL Cholesterol 277 (H) <200 mg/dL HDL Cholesterol 50 >49 mg/dL Non-HDL Cholesterol 227 (H) <=159 mg/dL LDL Cholesterol 167 (H) <=129 mg/dL December 25, 2024 EKG: Sinus rhythm at 68 bpm with a first-degree AV block, left axis deviation, LVH, nonspecific T-wave abnormality inferiorly and laterally ASSESSMENT AND RECOMMENDATIONS/PLAN: Hypotension, symptomatic. Discontinue hydralazine (currently taking 25 mg once a day). Decrease losartan from 100 mg/day to 50 mg/day. Daughter (EDGERMAN) to let me know via MyChart if ongoing hypotensionobserved at which time I would further reduce or discontinue losartan prior to changing carvedilol to metoprolol Diastolic heart failure. Compensated. Dyslipidemia. - Optimal LDL cholesterol goal is less than 70 mg/dL. - Patient with documented intolerance to pravastatin, atorvastatin, rosuvastatin, and ezetimibe. + - Fatty liver disease. - PCSK9 inhibitor therapy approved, noncompliant. - Last available LDL cholesterol 167 mg/dL on 01/16/2024. Carotid artery stenosis. Duplex in July 2023 revealed stable mild bilateral internal carotid artery disease. Routine routine surveillance monitoring, July 2026. Routine Cardiology follow-up in 6 months time or as needed ER with emergencies Homar Ware PA-C Department of Cardiology I spent a total of 30-39 minutes (exact time 30 mins) on the date of service in preparation, delivery, and documentation of the care provided to Sarah Burgos excluding any time spent in the performance of separately billed services. This visit involved medical care services related to at least one serious condition or complex condition requiring ongoing care. This chart was completed in part utilizing [employer] Speech Voice Recognition Software. Grammatical errors, random word insertions, prounoun errors, and incomplete sentences are an occasional consequence of this system due to software limitations, ambient noise, and hardware issues. Any formal questions or concerns about the content, text, or information contained within the body of this dictation should be directly addressed to the provider for clarification. documented in this encounter Procedure Notes * Quinton Rob DO - 12/25/2024 8:05 AM ESTAssociated Order(s): EKG REASON FOR STUDY: routine;routine CONCLUSIONS: Sinus rhythm with 1st degree AV block Left axis deviation High QRS voltage may be normal variant or due to lve Nonspecific T wave abnormality Abnormal ECG When compared with ECG of 04-Aug-2023 12:46, Premature ventricular complexes are no longer Present AL interval has increased Nonspecific T wave abnormality now evident in Inferior leads Nonspecific T wave abnormality, worse in Lateral leads Ventricular Rate: 68 Atrial Rate: 68 AL Interval: 220 QRS Duration: 102 QT/QTc: 422/448 ms P-R-T [place]: 8 : -31 : 3 degrees documented in this encounter Nursing Notes * Bettye Bob LPN - 12/25/2024 7:55 AM EST Examination Room: 2 Name: Sarah Burgos Date of : 1955 Reason for Visit: Follow up Problems/Concerns: Lightheaded upon standing, still having low BP Interim Hosp(s): Jun 2024 covid/strep Chest Pain/SOB: denies MyChart Discussed: ALREADY ACTIVE Patient was instructed to not get up on the exam table until directed and assisted by their provider; patient is to remain seated in the chair/ wheelchair/ exam table for fall prevention and safety reasons. Patient is aware staff will assist stepping down off exam table with personnel. documented in this encounter Plan of Treatment Upcoming Encounters Date Type Department Care Team (Latest Contact Info) Description 01/07/2025 8:00 AM EST Laboratory Laboratory, [address] [place] [phone] Mavis Rainey [address] [place] [address] 01/08/2025 9:30 AM EST Pharmacy Pharmacy Hematology Oncology [place] [address] [place] [address] [facility], [facility] Hem/Onc [address] [place] [address] 01/08/2025 10:15 AM EST Immunization/Inj ection Hematology/Onco logy Treatment, [place] [address] [place] [phone] 01/24/2025 8:00 AM EST Laboratory Laboratory, [address] [place] [phone] [facility] [address] [address] 01/25/2025 12:45 PM EST Immunization/Inj ection Hematology/Onco logy Treatment, [place] [address] [place], [place] [phone] 03/04/2025 9:45 AM EDT Imaging Radiology [facility] [facility] [address] [place] [address] 03/04/2025 11:00 AM EDT Imaging Radiology [address], [place] [address] [place] [address] 03/11/2025 10:45 AM EDT Office Visit Orthopaedics [facility] [address] [place] [phone] Javed Salas DO [address] [place] [address] 03/14/2025 11:00 AM EDT Office Visit Hematology/Onco logy [facility] [address] [place], [place] [phone] Marquis Christiansen MD [address] [facility] [place], [place] [address] 04/01/2025 1:00 PM EDT Hospital Encounter [facility], Endoscopy Room [facility] [address] [place] [phone] Amilcar Duran MD [address] [place] [address] 04/01/2025 1:00 PM EDT - 04/01/2025 1:30 PM EDT Surgery ENDO [facility], Endoscopy Room [facility] [address] [place] [address] Amilcar Duran MD [address] [place] [address] ESOPHAGOGASTRODUODENOSCOPY (EGD), FLEXIBLE, TRANSORAL, DIAGNOSTIC 06/24/2025 8:30 AM EDT Office Visit Cardiology, [facility] [address] [place] [address] Homar Ware PA-C [address] [place] [address] Scheduled Procedures Name Priority Associated Diagnoses Date/Ti [...] Procedure Name Priority Date/Time Associated Diagnosis Comments AL ECG ROUTINE ECG W/LEAST 12 LDS W/I&R Routine 12/25/2024 8:05 AM EST Hyperlipidemia with target LDL less than 70 documented in this encounter Results * EKG (12/25/2024 8:05 AM EST) 12/25/2024 8:05 AM EST Narrative Procedure Note Quinton Rob DO - 12/25/2024 8:05 AM EST REASON FOR STUDY: routine;routine CONCLUSIONS: Sinus rhythm with 1st degree AV block Left axis deviation High QRS voltage may be normal variant or due to lve Nonspecific T wave abnormality Abnormal ECG When compared with ECG of 04-Aug-2023 12:46, Premature ventricular complexes are no longer Present AL interval has increased Nonspecific T wave abnormality now evident in Inferior leads Nonspecific T wave abnormality, worse in Lateral leads Ventricular Rate: 68 Atrial Rate: 68 AL Interval: 220 QRS Duration: 102 QT/QTc: 422/448 ms P-R-T [place]: 8 : -31 : 3 degrees Homar Ware PA-C EKG Final Resul t [facility] documented in this encounter Visit Diagnoses Diagnosis Hypotension due to drugs- Primary Other iatrogenic hypotension Hyperlipidemia with target LDL less than 70 Other and unspecified hyperlipidemia Chronic diastolic congestive heart failure (HCC) Chronic diastolic heart failure Carotid stenosis, non-symptomatic, bilateral Type 2 diabetes mellitus with hemoglobin A1c [...] Discussed due to patient's condition Care Teams Developmental Mathematics Professor Relationship Specialty Start Date End Date Rowena Banks PA-C PCP - General Physician Furnace Operator 06/01/22 documented as of this encounter"
--- OUTSIDE RECORDS SUMMARY | 2025-04-07 11:46 | External Medical Summary | Summary of Care ---
Author Name Unknown Organization [facility] Address [address] [facility] [place] [address] Phone [phone] Care Team Providers Care Veterinary Medicine Scientist Name Role Phone Rowena Banks PA-C Primary Care Provider [phone] Reason for Visit * Reason Comments Medication Administration Xgeva 120mg * Episode Based Medications (Routine) - Authorized Specialty Diagnoses / Procedures Referred By Contdea t Referred To Contact Diagnoses Malignant neoplasm of upper-outer quadrant of left breast in female, estrogen receptor positive (HCC) Procedures OR DENOSUMAB INJECTION Marquis Christiansen MD [address] [place] [address] [place] [address] Phone: tel: fax: Hematology/Oncology Treatment, [address] [address] Phone: tel: fax: Referral ID Status Reason Start Date Expiration Date V isits Requested Visits Authorized [id number] Authorized 03/16/2024 03/16/2025 [id number] Encounter Details Date Type Department Care Team (Late st Contact Info) Description 11/30/2024 12:45 PM EST Immunization/I njection Hematology/Oncology Treatment, [address] [place] [address] [place], Chair 2 Hem Onc [address] [place] [address] Malignant neoplasm of upper-outer quadrant of left [...] as of this encounter (statuses as of 01/01/2025) Medications COMBIGAN 0.2-0.5 % ophthalmic solution Instill [...] day E11.9 100 Strip 11 022 Active InNetworkTouch UltraSoft LancetsIndicati ons:Type 2 diabetes mellitus with [...] for Nausea. 30 Tablet 3 024 Active Losartan Potassium 100 MG Oral Tablet (Cozaar)Indicat ions:HTN, goal below 140/90 Take 1 Tablet by mouth in the morning. 90 Tablet 3 024 2024 Discontinued(M edication List Clean Up) Lubiprostone 24 MCG Oral Capsule (Amitiza) Take 1 Capsule by mouth 2 times a day with morning and evening meals. 60 Capsule 5 024 2024 Discontinued(M edication List Clean Up) Gabapentin 300 MG Oral Capsule (Neurontin) Take 2 Capsules by mouth at bedtime. 60 Capsule 1 024 2024 Discontinued SITagliptin Phosphate 50 MG Oral Tablet (Januvia) Take 1 Tablet by mouth in the morning. 90 Tablet 1 024 2024 Discontinued(M edication List Clean Up) hydrALAZINE HCl 25 MG Oral Tablet (Apresoline)Ind ications:HTN, goal below 140/90 Take 1 Tablet by mouth in the morning and 1 Tablet at noon and 1 Tablet before bedtime. 270 Tablet 3 024 2024 Discontinued Azithromycin 250 MG Oral Tablet (Zithromax)Sharee cations:Bronchi tis, complicated Take 2 tabs by mouth on the first day, then 1 tab daily on days two through five 6 Tablet 024 2024 Discontinued(M edication List Clean Up) Hospital, Clinic, or Other Facility Administered Medication Ordered Dose Route Frequency Start Date End Date Status albuterol sulfate (PROVENTIL) (2.5 MG/3ML) 0.083% inhalation solution 2.5 mgIndications:Restrictive lung disease,SOB (shortness of breath) 2.5 mg NEBULIZER Q4H PRN 11/07/2017 Act roe documented as of this encounter (statuses as of 01/01/2025) Active Problems Problem Noted Date Diagnosed Date [...] as of this encounter (statuses as of 01/01/2025) Resolved Problems Problem Noted Date Diagnosed Date [...] as of this encounter (statuses as of 01/01/2025) Immunizations Name Administration Dates Next Due COVID-19 [...] Nursing Notes * Akiko Mayo LPN - 11/30/2024 12:54 PM EST Calcium 9.0 Phosphorus 3.4 Patient denies any tooth, gum, or jaw pain. Xgeva 120mg administered SQ into the right upper extremity. Patient tolerated injection and will return in 4 weeks. documented in this encounter Plan of Treatment Upcoming Encounters Date Type Department Care Team (Latest Contact Info) Description 01/07/2025 8:00 AM EST Laboratory Laboratory, [address] [place] [phone] [facility] [address] [place] [address] 01/08/2025 9:30 AM EST Pharmacy Pharmacy Hematology Oncology [facility] [place] [address] [place] [address] [facility], [facility] Hem/Onc [address] [place] [address] 01/08/2025 10:15 AM EST Immunization/Inj ection Hematology/Onco logy Treatment, [address], [place] [phone] 01/24/2025 8:00 AM EST Laboratory Laboratory, [address] [place] [phone] [facility] [address] [place] [address] 01/25/2025 12:45 PM EST Immunization/Inj ection Hematology/Onco logy Treatment, [address], [place] [phone] 03/04/2025 9:00 AM EDT Office Visit Orthopaedics [facility] [address] [place] [phone] Javed Salas, DO [address] [place] [address] 03/04/2025 9:45 AM EDT Imaging Radiology [address] [place] [address] 03/04/2025 11:00 AM EDT Imaging Radiology [address] [place] [address] 03/14/2025 11:00 AM EDT Office [facility] [address] [place], [place] [phone] Marquis Christiansen MD [address] [facility] [place] [address] 04/01/2025 1:00 PM EDT Hospital Encounter ENDO [facility], Endoscopy Room [facility] [address] [place] [phone] Amilcar Duran MD [address] [place] [address] 04/01/2025 1:00 PM EDT - 04/01/2025 1:30 PM EDT Surgery ENDO [facility], Endoscopy Room [facility] [address] [place] [address] Amilcar Duran MD [address] [place] [address] ESOPHAGOGASTRODUODENOSCOPY (EGD), FLEXIBLE, TRANSORAL, DIAGNOSTIC 06/24/2025 8:30 AM EDT Office Visit Cardiology, [facility] [address] [place] [address] Homar Ware PA-C [address] [place] [address] Scheduled Procedures Name Priority Associated Diagnoses Date/Ti [...] 120 mg 120 mg, Subcutaneous, ONCE, On Tue11/30/24 at 1400, For 1 doseIndications:Malignant neoplasm of upper-outer quadrant of left breast in female, estrogen receptor positive (HCC) Given 11/30/2024 12:50 PM EST 120 mg Arm Right Upper documented in this encounter [...] Discussed due to patient's condition Care Teams Veterinary Medicine Scientist Relationship Specialty Start Date End Date Rowena Banks PA-C PCP - General Physician Dam Operator 06/01/22 documented as of this encounter
--- OUTSIDE RECORDS SUMMARY | 2025-04-07 11:46 | External Medical Summary | Summary of Care ---
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 020 Active INCHRONTouch Verio w/Device KitIndications: Type 2 diabetes mellitus with hemoglobin A1c goal of less than 7.0% (HCC) Use up to twice times a day E11.9 1 Kit 022 Active INCHRONTouch Verio In Vitro Strip (Glucose Blood)Indicatio ns:Type 2 diabetes mellitus with hemoglobin A1c goal of less than 7.0% (HCC) Use up to 2 times a day E11.9 100 Strip 11 022 Active INCHRONTouch UltraSoft LancetsIndicati ons:Type 2 diabetes mellitus with [...] Description 01/07/2025 8:00 AM EST Laboratory [facility], [place] [facility] [address] [place] [phone] [place] [facility] [address] [facility] [address] 01/08/2025 9:30 AM EST Pharmacy Pharmacy Hematology Oncology [place] [address] [place] [address] [facility], [facility] Hem/Onc [address] [place] [address] 01/08/2025 10:15 AM EST Immunization/Inj ection Hematology/Onco logy Treatment, [address] [address] 01/24/2025 8:00 AM EST Laboratory Laboratory, [facility] [address] [facility] [place] [phone] [place] [address] [facility] [address] 01/25/2025 12:45 PM EST Immunization/Inj ection Hematology/Onco logy Treatment, [address] [phone] 03/04/2025 9:00 AM EDT Office Visit Orthopaedics [facility] [address] [place] [phone] Javed Salas, [address] [place] [address] 03/04/2025 9:45 AM EDT Imaging Radiology [address] [place] [address] 03/04/2025 11:00 AM EDT Imaging Radiology [address] [place] [address] 03/14/2025 11:00 AM EDT Office Visit Hematology/Onco logy [facility] [address] [facility] [place] [phone] Marquis Christiansen MD [address] [facility] [place] [address] 04/01/2025 1:00 PM EDT Hospital Encounter ENDO [facility], Endoscopy Room [facility] [address] [place] [address] Amilcar Duran MD [address] [place] [address] 04/01/2025 1:00 PM EDT - 04/01/2025 1:30 PM EDT Surgery ENDO [facility], Endoscopy Room [facility] [address] [place] [address] Amilcar Duran MD [address] [place] [address] ESOPHAGOGASTRODUODENOSCOPY (EGD), FLEXIBLE, TRANSORAL, DIAGNOSTIC 06/24/2025 8:30 AM EDT Office Visit Cardiology, [facility] [address] [place] [address] Homar Ware PA-C [address] [place] [address] Scheduled Procedures Name Priority Associated Diagnoses Date/Ti [...] Discussed due to patient's condition Care Teams Dinkey Mechanic Relationship Specialty Start Date End Date Rowena Banks PA-C PCP - General Physician Domestic Laundry Worker 06/01/22 documented as of this encounter
--- OUTSIDE RECORDS SUMMARY | 2025-04-07 11:46 | External Medical Summary | Summary of Care ---
Author Name Unknown Organization [facility] Address [address] [facility] [place] [address] Phone [phone] Care Team Providers Care Rock Wool Insulator Name Role Phone Rowena Banks PA-C Primary Care Provider [phone] Reason for Visit * Reason Comments Follow Up Treatment Encounter Details Date Type Department Care Team (Late st Contact Info) Description 12/24/2024 2:00 PM EST Office Visit Hematology/Oncology [facility] [place] [address] [facility] [address] Carlene Alcantara CRNP [address] [facility] [place] [address] Malignant neoplasm of upper-outer quadrant of left breast in female, estrogen receptor positive (HCC)*; 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); Metastasis to bone (HCC); Dehydration; B12 deficiency Allergies Active Allergy Reactions Criticality [...] a day E11.9 1 Kit 022 Active Ingk LabsTouch Verio In Vitro Strip (Glucose Blood)Indicatio ns:Type 2 diabetes mellitus with hemoglobin A1c goal of less than 7.0% (HCC) Use up to 2 times a day E11.9 100 Strip 11 022 Active Ingk LabsTouch UltraSoft LancetsIndicati ons:Type 2 diabetes mellitus with [...] Sign Reading Time Taken Comments Blood Pressure 102/63 12/24/2024 1:44 PM EST Pulse 83 12/24/2024 1:44 PM EST Temperature 36.8 °C (98.2 °F) 12/24/2024 1:44 PM ES T Respiratory Rate - - Oxygen Saturation 95% 12/24/2024 1:44 PM EST Inhaled Oxygen Concentration - - Weight 99.3 kg (219 lb) 12/24/2024 1:44 PM EST Height - - Body Mass Index 37.59 11/20/2024 10:08 AM EST documented in this encounter Progress Notes * Carlene Alcantara CRNP - 12/24/2024 1:54 PM EST Hematology/Oncology Outpatient Clinic note Silvino Suero [address] [facility] [place] [address] Name: Sarah Burgos Date: 12/24/2024 CHIEF COMPLAINT: Sarah Burgos is a 69 year old female here today for f/u visit today. Patient of Dr. Marquis Christiansen. From Patient chart confirmed with patient. HEMATOLOGY/ONCOLOGY DIAGNOSIS: Left breast cancer, invasive carcinoma no special type, high grade, ER positive (moderate) in 60% malignant cells, VA weakly positive in 30% of malignamt cells, [...] weekly positive in 50% of malignant cells, VA moderately positive in 50 % malignant cells, her2/vance--> Negative.- PD-L1 less than 1%. DATE OF DIAGNOSIS: 10/31/19 TREATMENT HISTORY: -She completed neoadjuvant dose dense AC followed by weekly Paclitaxel between 12/25/2019-05/22/2020. -She underwent bilateral mastectomies, left axillary lymph node dissection by Dr. Sarah on 07/07/2020 -She completed adjuvant radiation treatment in October 2020 at [facility]. - anastrozole 1 mg once a day. ( since May 2020- 10/2022) - Exemestane 25 mg once a day ( mid- October 2022-02/2024) . Discontinued because of disease progression, now diagnosed with stage IV breast cancer with bone metastasis in 01/2024. CURRENT TREATMENT: Faslodex and Abemaciclib combination.( 03/28/2024--) She is on Abemacilcib at 100 mg twice a day. Xgeva every 4 weeks (03/22/2024--) Monthly IM [...] carcinoma. -ER moderately positive in 60% cells, VA weakly positive in 30% malignamt cells -Her2/Vance [...] asthma -Hyperlipidemia -nonspecific neuromuscular symptoms, seen by flat sorting machine clerk few years back, she says that she is positive for HLA B27 (November 2018) -Irritable bowel syndrome. -abdominal hernia surgery in the past -diverticulosis -discontinue smoking habit many years back, she smoked from age of 16 to 33. HISTORY OF PRESENT ILLNESS: Sarah Burgos is a 69 year old female with a history as outlined above. Currently here for acute visit today. Patient has been feeling increasingly weak for the last week. Began with dizziness yesterday. Denies any vomiting or diarrhea. Just has no energy to get up and eat and drink. Has a poor appetite. Past Medical History: Diagnosis Date CODIE inhibitor [...] Dr Louis BREAST LESION,OTHER,EXCISION Bilateral Benign @ [facility] DELIVERY 1985 - emergency COLONOSCOPY, DIAGNOSTIC (RECTUM) 03/21/2012 COLONOSCOPY FLEXIBLE PROXIMAL DIAGNOSTIC performed by SHANTELL BRICE at ENDOSCOPY [facility] COLONOSCOPY, DIAGNOSTIC (RECTUM) 02/27/2018 normal, repeat 10 yrs/COLONOSCOPY FLEXIBLE PROXIMAL DIAGNOSTIC performed by Amilcar Duran MD at ENDOSCOPY [facility] EGD, FLEXIBLE, DIAGNOSTIC 01/24/2014 ESOPHAGOGASTRODUODENOSCOPY (EGD), FLEXIBLE, TRANSORAL, DIAGNOSTIC performed by Shantell Brice DO at ENDOSCOPY [facility] EGD, FLEXIBLE, DIAGNOSTIC 11/07/2014 mild-mod inflammation/ESOPHAGOGASTRODUODENOSCOPY (EGD), FLEXIBLE, TRANSORAL, DIAGNOSTIC performed by Amilcar Duran MD at ENDOSCOPY [facility] EGD, FLEXIBLE, DIAGNOSTIC 07/25/2019 acid reflux / [facility] GRAFT RIB CARTILAGE TO FACE/EAR/NOS N/A 08/12/2016 GRAFT RIB CARTILAGE TO FACE performed by Shea Alexandra MD at OR [facility] INFORMATION 1996 lap HH repair INFORMATION 1997 emergency ulcer surgery INFORMATION 2000 10 hernia repairs with mesh INFORMATION 1976 ovarian cysts removed INFORMATION 1996 incidental cholecystectomy INFORMATION age 25 repair broken nose and R cheek bone IR BIOPSY 03/07/2024 L-/S-SPINE PARAVERTEBRAL FACET INJ,1 LEVEL 08/17/2023 L-/S-SPINE PARAVERTEBRAL FACET INJ, 1 LEVEL performed by Facundo Benitez DO at OR [facility] L-/S-SPINE PARAVERTEBRAL FACET INJ,1 LEVEL 10/19/2023 L-/S-SPINE PARAVERTEBRAL FACET INJ, 1 LEVEL performed by Facundo Benitez DO at OR [facility] PFT B/A 10/2014 normal RECONSTRUCTION OF NOSE/SEPTUM N/A 08/12/2016 RHINOPLASTY COMPLETE INCLUDING MAJOR SEPTAL REPAIR performed by Shea Alexandra MD at [facility] REMOVAL OF APPENDIX Appendectomy REMOVE TONSILS & ADENOIDS, AGE 12+ 1981 Tonsillectomy/Adenoids,12+ Y/O SACROILIAC JOINT INJECT W/GUIDANCE 09/25/2018 INJECTION SACROILIAC JOINT performed by Facundo Benitez DO at OR [facility] SACROILIAC JOINT INJECT W/GUIDANCE 06/04/2019 INJECTION SACROILIAC JOINT performed by Facundo Benitez, DO at OR [facility] SACROILIAC JOINT INJECT W/GUIDANCE 12/08/2022 INJECTION SACROILIAC JOINT performed by Facundo Benitez, at OR [facility] SKIN TISSUE REARRANGEMENT Bilateral 08/30/2023 SKIN TISSUE REARRANGEMENT performed by Kody Perez MD at [facility] SKIN TISSUE REARRANGEMENT, ADD-ON Bilateral 08/30/2023 SKIN TISSUE REARRANGEMENT, ADD-ON performed by Kody Perez MD at OR [facility] THERAPEUTIC FRACTURE OF NOSE Bilateral 08/12/2016 FRACTURE OF NASAL TURBINATES THERAPEUTIC performed by Shea Alexandra MD at OR [facility] TOTAL ABD HYSTERECTOMY W/WO REMOVAL OF TUBE(S) [...] date: 12/03/1970 Quit date: 12/03/1987 Years since quittin.0 Passive exposure: Never Smokeless tobacco: Never Vaping [...] no exercise: Walking daily diet: Low fat evangelical/christianity: [facility] marital status: 2002 children: 3 gc: 8 [...] 1 Tablet by mouth in the morning. Ingk LabsTouch Verio w/Device Kit Use up to twice times a day E11.9 1 Kit 0 OneTouch Verio In Vitro Strip (Glucose Blood) Use up to 2 times a day E11.9 100 Strip 11 OneTouch UltraSoft Lancets Use as directed 2 times a day as needed for Hyperglycemia (high sugar) or Hypoglycemia (low sugar). 100 Each 1 Albuterol Sulfate HFA 108 (90 Base) MCG/ACT [...] a day with morning and evening meals. (Patient not taking: Reported on 12/18/2024) 180 Tablet 3 Fluticasone Propionate 50 MCG/ACT [...] by mouth at dinner. 120 Capsule 5 Famotidine 20 MG Oral [...] 1 Tablet before bedtime. 270 Tablet 3 oxyCODONE HCl 5 MG [...] mouth in the morning. 90 Tablet 3 Current Facility-Administered Medications Medication Dose Route Frequency Provider Last Rate Last Admin albuterol sulfate (PROVENTIL) (2.5 MG/3ML) 0.083% inhalation solution 2.5 mg 2.5 mg Nebulizer Q4H PRN Stephan Simon MD 2.5 mg at 11/15/17 1121 REVIEW OF SYSTEMS: See HPI - otherwise negative OBJECTIVE: Filed Vitals: 12/24/24 1344 BP: 102/63 Pulse: 83 Temp: 36.8 °C (98.2 °F) TempSrc: Tympanic SpO2: 95% Weight: 99.3 kg (219 lb) Wt Readings from Last 5 Encounters: 12/24/24 99.3 kg (219 lb) 12/18/24 101.8 kg (224 lb 6.4 oz) 12/11/24 105.1 kg (231 lb 11.2 oz) 11/20/24 106.3 kg (234 lb 4.8 oz) 11/13/24 107 kg (236 lb) PHYSICAL EXAM: ECOG: Performance Status 1 = 80-90% Symptoms but nearly ambulatory General Appearance: Normal - Healthy appearing patient in no acute distress Lungs/Thorax: Normal respiratory effort Pulses/Extremities: Normal - 2+ throughout and symmetrical, no edema Neurologic: Normal - Grossly intact LABS: Results for orders placed or performed in visit on 12/24/24 COMPREHENSIVE METABOLIC PANEL Result Value Ref Range BUN 21 (H) 6 - 20 mg/dL CREATININE 1.0 0.5 - 1.0 mg/dL EGFR 60 >=60 mL/min SODIUM 139 135 - 146 mmol/L POTASSIUM 4.6 3.5 - 5.1 mmol/L CHLORIDE 106 98 - 107 mmol/L CO2 23 22 - 32 mmol/L ANION GAP 10 7 - 15 mmol/L GLUCOSE 101 70 - 120 mg/dL Albumin 4.2 3.8 - 5.0 g/dL AST 24 10 - 35 U/L Alkaline Phosphatase 430 (H) 35 - 130 U/L Bilirubin, Total 0.5 <=1.2 mg/dL CALCIUM 8.7 8.4 - 10.2 mg/dL Protein 7.6 6.0 - 8.3 g/dL ALT 7 (L) 10 - 35 U/L MAGNESIUM Result Value Ref Range Magnesium 2.5 1.5 - 2.6 mg/dL CBC Result Value Ref Range WBC 5.64 4.00 - 10.80 K/uL RBC 2.94 3.85 - 5.15 M/uL HGB 10.6 (L) 12.0 - 15.3 g/dL HCT 32.1 (L) 36.0 - 45.2 % MCV 109.2 81.5 - 97.5 fL MCH 36.1 27.0 - 34.0 pg MCHC 33.0 32.0 - 36.0 g/dL RDW 13.8 11.5 - 15.5 % PLT 188 140 - 400 K/uL MPV 9.9 6.6 - 11.1 fL DIFFERENTIAL, AUTOMATED Result Value Ref Range WBC 5.64 4.00 - 10.80 K/uL Neutrophils % 71.3 40.0 - 75.0 % Lymphocytes % 19.5 18.0 - 42.0 % Monocytes % 6.6 1.0 - 11.0 % Eosinophils % 1.4 0.0 - 6.0 % Basophils % 1.2 0.0 - 2.0 % Absolute Neutrophils 4.02 1.80 - 7.70 K/uL Absolute Lymphocytes 1.10 1.00 - 4.80 K/ul Absolute Monocytes 0.37 0.00 - 1.10 K/uL Absolute Eosinophils 0.08 0.00 - 0.70 K/uL Absolute Basophils 0.07 0.00 - 0.20 K/uL *Note: Due to a large number of results and/or encounters for the requested time period, some results have not been displayed. A complete set of results can be found in Results Review. IMPRESSION/PLAN: Metastatic breast cancer to bone Dehydration Vitamin B12 deficiency Current treatment plan as follows: Faslodex injection every four weeks Verzenio 100 mg BID Xgeva 120 mg subq every four weeks IM Vitamin B12 1,000 mcg monthly Patient reporting increasing weakness and dizziness today. Has no appetite and losing weight. Lab results reviewed: BUN increased at 21 likely d/t dehydration Alk phos elevated at 430 Hgb improved at 10.6 - will add on vitamin b12 level Order placed for patient to receive IL NSS over two hours today. Reinforced importance of drinking at least 64 ounces of fluids daily. Recommended patient consider starting a daily protein shake for supplementation. Approached option of appetite stimulant but patient adamantly declined. Will continue current treatment plan at this time. Continue monthly labs and MTM f/u - appreciate recommendations Next restaging PET/CT scheduled for 03/04/25 RTC as scheduled PAULINO El documented in this encounter Nursing Notes * Tameka Ibrahim MED ASSIST - 12/24/2024 1:49 PM EST Patient identifed by name and birthdate [...] it for you? ALREADY ACTIVE Filed Vitals: 12/24/24 1344 BP: 102/63 Pulse: 83 Temp: 36.8 °C (98.2 °F) TempSrc: Tympanic SpO2: 95% Weight: 99.3 kg (219 lb) Patient was instructed to not get up on the exam table/exam chair until directed and assisted by their provider; patient is to remain seated in the chair/ wheelchair/ exam table/ exam chair for fall prevention and safety reasons. Patient is aware to have assistance to step down off exam table/exam chair with personnel. Patient voiced full comprehension of instructions. Pt states she feels very tired. She feels like she's going to pass out. Has to hold on to things when she walks. Which started about 3 days ago. Reported having pain the in the ribs which started 2 weeks ago. Had a bout of diarrhea which lasted 10 days with weight loss. Has low BP when taken at home while sitting. Sees cad designer drafter tomorrow. documented in this encounter Plan of Treatment Upcoming Encounters Date Type Department Care Team (Latest Contact Info) Description 01/07/2025 8:00 AM EST Laboratory Laboratory, [address] [place] [phone] Mavis Rainey [address] [place] [address] 01/08/2025 9:30 AM EST Pharmacy Pharmacy Hematology Oncology [facility] [address] [place] [address] [facility] [place] Hem/Onc [address] [place] [address] 01/08/2025 10:15 AM EST Immunization/Inj ection Hematology/Onco logy Treatment, [place] [address] [place], [place] [phone] 01/24/2025 8:00 AM EST Laboratory Laboratory, [address] [place] [address] [facility] [address] [place] [address] 01/25/2025 12:45 PM EST Immunization/Inj ection Hematology[facility]co log[facility] [phone] 03/04/2025 9:00 AM EDT Office Visit Orthopaedics [facility] [address] [place] [address] Javed Salas, [address] [place] [address] 03/04/2025 9:45 AM EDT Imaging Radiology [address] [place] [address] 03/04/2025 11:00 AM EDT Imaging Radiology [address] [place] [address] 03/14/2025 11:00 AM EDT Office Visit Hematology/Onco logy [facility] [address] [place], [place] [phone] Marquis Christiansen MD [address] [facility] [address] 04/01/2025 1:00 PM EDT Hospital Encounter ENDO [facility], Endoscopy Room [facility] [address] [place] [address] Amilcar Duran MD [address] [place] [address] 04/01/2025 1:00 PM EDT - 04/01/2025 1:30 PM EDT Surgery ENDO [facility], Endoscopy Room [facility] [address] [place] [phone] Amilcar Duran MD [address] [place] [address] ESOPHAGOGASTRODUODENOSCOPY (EGD), FLEXIBLE, TRANSORAL, DIAGNOSTIC 06/24/2025 8:30 AM EDT Office Visit Cardiology, [facility] [address] [place] [address] Homar Ware PA-C [address] [place] [address] Scheduled Procedures Name Priority Associated Diagnoses Date/Ti [...] Procedure Name Priority Date/Time Associated Diagnosis Comments VITAMIN B12 Routine 12/24/2024 1:30 PM EST B12 deficiency documented in this encounter Results * VITAMIN B12 (12/24/2024 1:30 PM EST) Vitamin B12 418 232 - 1,245 pg/mL 12/25/2024 12:00 AM EST [facility] Blood Venous blood specimen / Unknown Venipuncture / Unknown 12/24/2024 1:30 PM EST 12/24/2024 1:30 PM EST us Carlene BOB LAB BLOOD ORDERABLES Fi nal Result [facility] [address] [place] [address] documented in this encounter Visit Diagnoses Diagnosis Malignant neoplasm of upper-outer quadrant of left breast in female, estrogen receptor positive (HCC)- Primary 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
--- OUTSIDE RECORDS SUMMARY | 2025-04-07 11:47 | External Medical Summary | Summary of Care ---
Author Name Unknown Organization [facility] Address [address] [facility] [place] [address] Phone [phone] Care Team Providers Care Cheese Cooker Name Role Phone Rowena Banks PA-C Primary Care Provider [phone] Reason for Visit * Reason Onset Date Comments Medication Refill 12/14/2024 Encounter Details Date Type Department Care Team (Late st Contact Info) Description 12/14/2024 Refill [facility]astroenterology, [facility] [place] [address] Rosendo Alcantara CRNP [address] [facility] [place] [address] Allergies Active Allergy Reactions Criticality Noted Date [...] as of this encounter (statuses as of 12/14/2024) Medications COMBIGAN 0.2-0.5 % ophthalmic solution Instill [...] E11.9 100 Strip 11 04/15/20 22 Active Evolent HealthTouch UltraSoft LancetsIndicatio ns:Type 2 diabetes mellitus with [...] Wheezing. 8.5 g 11 11/25/19 24 Active Losartan Potassium 100 MG Oral Tablet (Cozaar)Indicati ons:HTN, goal below 140/90 Take 1 Tablet by mouth in the morning. 90 Tablet 3 12/12/19 24 Active Additional Information Patient not taking.Reported on 11/20/2024 oxyCODONE-Acetam inophen 5-325 MG Oral Tablet (Percocet)Indica [...] (Calcium 500+D3) Take by mouth. Activ e Lubiprostone 24 MCG Oral Capsule (Amitiza) Take 1 Capsule by mouth 2 times a day with morning and evening meals. 60 Capsule 5 04/05/20 24 Active Additional Information Patient not taking.Reported on 11/20/2024 Prochlorperazine Maleate 10 MG Oral Tablet (Compazine)Indic [...] 11/20/2024 Fluticasone Propionate 50 MCG/ACT Nasal Suspension (Flonase)Indicat [...] (1 tablet) before bedtime. 60 Tablet 5 11/16/2024 10:11 AM EST 08/27/20 24 Active Gabapentin 100 MG Oral Capsule (Neurontin)Indic ations:Neuropath y Take 2 capsules by mouth in the morning and 1 capsule by mouth at lunch and 1 capsule by mouth at dinner. 120 Capsule 5 10/08/20 24 Active SITagliptin Phosphate 50 MG Oral Tablet (Januvia) Take 1 Tablet by mouth in the morning. 90 Tablet 1 10/08/20 24 Active Famotidine 20 MG Oral [...] at bedtime 60 Capsule 12/07/19 25 Active Hospital, Clinic, or Other Facility Administered Medication Ordered Dose Route Frequency Start Date End Date Status albuterol sulfate (PROVENTIL) (2.5 MG/3ML) 0.083% inhalation solution 2.5 mgIndications:Restrictive lung disease,SOB (shortness of breath) 2.5 mg NEBULIZER Q4H PRN 11/07/2017 Act roe documented as of this encounter (statuses as of 12/14/2024) Active Problems Problem Noted Date Diagnosed Date B12 deficiency 10/19/2024 History of small bowel obstruction 02/15/2023 Hypertensive heart disease w ith chronic diastolic congestive heart failure 02/03/2023 Chronic diastolic congestive heart failure 12/02 Primary osteoarthritis of both knees 02/03/2022 HLA B27 (HLA B27 positive) 12/21/2021 Carotid stenosis, non-symptomatic, bilateral 07/2021 BRCA negative 09/24/2020 Overview (09/24/2020): Negative Genetic testing for: JUNA, BARD1, BRCA1, BRCA2, BRIP1, CDH1, CHEK2, EPCAM*, MLH1, MSH2, MSH6, NBN, NF1, PALB2, PMS2, PTEN, RAD51C, RAD51D, STK11, TP53. History of breast cancer 07/30/2020 Encounter for care related to vascular access po rt 07/01/2020 Body mass index (BMI) of 40.0 to 44.9 in adult 0 01/01/2020 Overview: Per Obesity protocol Malignant neoplasm of upper- outer quadrant of [...] as of this encounter (statuses as of 12/14/2024) Resolved Problems Problem Noted Date Diagnosed Date Resolved Date Prediabetes 06/29/2021 08/13/2022 Overview: Per Prediabetes protocol Left renal artery stenosis 03/21/2018 0 [...] as of this encounter (statuses as of 12/14/2024) Immunizations Name Administration Dates Next Due COVID-19 [...] Description 01/07/2025 8:00 AM EST Laboratory Laboratory, [address] [place] [phone] [facility] [address] [place] [address] 01/08/2025 9:30 AM EST Pharmacy Pharmacy Hematology Oncology [place] [address] [place] [address] [facility] [place] [facility] Hem/Onc [address] [place] [address] 01/08/2025 10:15 AM EST Immunization/Inj ection Hematology/Onco logy Treatment, [place] [address] [facility] [address] [place] [phone] 01/24/2025 8:00 AM EST Laboratory Laboratory, [address] [place] [phone] [facility] [address] [place] [address] 01/25/2025 12:45 PM EST Immunization/Inj ection Hematology/Onco logy Treatment, [place] [address] [place] [address] 03/04/2025 9:45 AM EDT Imaging Radiology [address], [place] [address] [place] [phone] 03/04/2025 11:00 AM EDT Imaging Radiology [facility] [facility], [place] [address] [place] [phone] 03/11/2025 10:45 AM EDT Office Visit Orthopaedics [facility] [address] [place] [phone] Javed Salas DO [address] [place] [address] 03/14/2025 11:00 AM EDT Office Visit Hematology/Onco logy [facility] [address] [place] [phone] Marquis Christiansen MD [address] [place] [address] 04/01/2025 1:00 PM EDT Hospital Encounter ENDO [facility], Endoscopy Room [facility] [address] [place] [phone] Amilcar Duran MD [address] [place] [address] 04/01/2025 1:00 PM EDT - 04/01/2025 1:30 PM EDT Surgery ENDO [facility], Endoscopy Room [facility] [address] [place] [phone] Amilcar Duran MD [address] [place] [address] ESOPHAGOGASTRODUODENOSCOPY (EGD), FLEXIBLE, TRANSORAL, DIAGNOSTIC 07/04/2025 2:00 PM EDT Office Visit Cardiology, [facility] [address] [place] [address] Homar Ware PA-C [address] [place] [address] Scheduled Procedures Name Priority Associated Diagnoses Date/Ti [...] from 08/12/2017 (Patient Declined After Education) GFR 12/10/2025 12/10/2024, 07/2025, 11/12/2024, Additional history exists Colonoscopy 02/28/2028 02/27/2018, 07/2018, [...] Discussed due to patient's condition Care Teams Cheese Cooker Relationship Specialty Start Date End Date Rowena Banks PA-C PCP - General Physician Durable Medical Equipment Repairer 06/01/22 documented as of this encounter
--- OUTSIDE RECORDS SUMMARY | 2025-04-07 11:47 | External Medical Summary | Summary of Care ---
Author Name Unknown Organization [facility] Address [address] [facility] [place] [address] Phone [phone] Care Team Providers Care Life Science Technician Name Role Phone Rowena Banks PA-C Primary Care Provider [phone] Reason for Visit * Reason Comments Follow Up Return Encounter Details Date Type Department Care Team (Late st Contact Info) Description 12/11/2024 9:30 AM EST Office Visit Hematology/Oncology [facility] [place] [address] [facility] [address] Carlene Alcantara CRNP [address] [facility] [place] [address] Malignant neoplasm of upper-outer quadrant of left breast in female, estrogen receptor positive (HCC)*; 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 06/09/20 20 Active Affirmed NetworksTouch Verio w/Device KitIndications:T ype 2 diabetes mellitus with hemoglobin A1c goal of less than 7.0% (HCC) Use up to twice times a day E11.9 1 Kit 04/15/20 22 Active [employer]irmed NetworksToVittana Verio In Vitro Strip (Glucose Blood)Indication s:Type 2 diabetes mellitus with hemoglobin A1c goal of less than 7.0% (HCC) Use up to 2 times a day E11.9 100 Strip 11 04/15/20 22 Active [employer]irmed [employer]ToVittana UltraSoft LancetsIndicatio ns:Type 2 diabetes mellitus with [...] as of this encounter (statuses as of 12/12/2024) Active Problems Problem Noted Date Diagnosed Date [...] as of this encounter (statuses as of 12/12/2024) Resolved Problems Problem Noted Date Diagnosed Date [...] 06/21/2016 BITE BY CAT, RIGHT FOOT 05/04/201111/2015 Deviated nasal septum 03/26/20112015 Cough 03/22/2011 06/21/2016 [...] as of this encounter (statuses as of 12/12/2024) Immunizations Name Administration Dates Next Due COVID-19 [...] Sign Reading Time Taken Comments Blood Pressure 141/71 12/11/2024 9:35 AM EST Pulse 72 12/11/2024 9:35 AM EST Temperature 36.8 °C (98.2 °F) 12/11/2024 9:35 AM ES T Respiratory Rate - - Oxygen Saturation 95% 12/11/2024 9:35 AM EST Inhaled Oxygen Concentration - - Weight 105.1 kg (231 lb 11.2 oz) 12/11/2024 9:35 AM EST Height - - Body Mass Index 39.77 11/20/2024 10:08 AM EST documented in this encounter Progress Notes * Carlene Alcantara CRNP - 12/11/2024 9:30 AM EST Hematology/Oncology Outpatient Clinic note Silvino Nguyen [place] [address] [facility] [place] [address] Name: Sarah Burgos Date: 12/10/2024 CHIEF COMPLAINT: Sarah Burgos is a 69 year old female here today for f/u visit today. Patient of Dr. Marquis Christiansen. From Patient chart confirmed with patient. HEMATOLOGY/ONCOLOGY DIAGNOSIS: Left breast cancer, invasive carcinoma no special type, high grade, ER positive (moderate) in 60% malignant cells, SC weakly positive in 30% of malignamt cells, [...] weekly positive in 50% of malignant cells, SC moderately positive in 50 % malignant cells, her2/vance--> Negative.- PD-L1 less than 1%. DATE OF DIAGNOSIS: 10/31/19 TREATMENT HISTORY: -She completed neoadjuvant dose dense AC followed by weekly Paclitaxel between 12/25/2019-05/22/2020. -She underwent bilateral mastectomies, left axillary lymph node dissection by Dr. Sarah on 07/07/2020 -She completed adjuvant radiation treatment in October 2020 at [facility]. - anastrozole 1 mg once a day. [...] carcinoma. -ER moderately positive in 60% cells, SC weakly positive in 30% malignamt cells -Her2/Vance [...] asthma -Hyperlipidemia -nonspecific neuromuscular symptoms, seen by assembler convertible top few years back, she says that she is positive for HLA B27 (November 2018) -Irritable bowel syndrome. -abdominal hernia surgery in the past -diverticulosis -discontinue smoking habit many years back, she smoked from age of 16 to 33. HISTORY OF PRESENT ILLNESS: Sarah Burgos is a 69 year old female with a history as outlined above. Currently here for acute visit today. Did take a Z pack right before the diarrhea started. Diarrhea was explosive and foul smelling. Food would go right through her. Does have a history of cdiff. This went on about two weeks. Di arrhea has stopped now. Otherwise was tolerating treatment plan well. Was having nausea but denies vomiting. Takes three tablets of calcium/vitamin d daily. Past Medical History: Diagnosis Date CODIE inhibitor [...] Dr Louis BREAST LESION,OTHER,EXCISION Bilateral Benign @ [facility] DELIVERY 1985 - emergency COLONOSCOPY, DIAGNOSTIC (RECTUM) 03/21/2012 COLONOSCOPY FLEXIBLE PROXIMAL DIAGNOSTIC performed by SHANTELL BRICE at ENDOSCOPY [facility] COLONOSCOPY, DIAGNOSTIC (RECTUM) 02/27/2018 normal, repeat 10 yrs/COLONOSCOPY FLEXIBLE PROXIMAL DIAGNOSTIC performed by Amilcar Duran MD at ENDOSCOPY [facility] EGD, FLEXIBLE, DIAGNOSTIC 01/24/2014 ESOPHAGOGASTRODUODENOSCOPY (EGD), FLEXIBLE, TRANSORAL, DIAGNOSTIC performed by Shantell Brice DO at ENDOSCOPY [facility] EGD, FLEXIBLE, DIAGNOSTIC 11/07/2014 mild-mod inflammation/ESOPHAGOGASTRODUODENOSCOPY (EGD), FLEXIBLE, TRANSORAL, DIAGNOSTIC performed by Amilcar Duran MD at ENDOSCOPY [facility] EGD, FLEXIBLE, DIAGNOSTIC 07/25/2019 acid reflux / [facility] GRAFT RIB CARTILAGE TO FACE/EAR/NOS N/A 08/12/2016 GRAFT RIB CARTILAGE TO FACE performed by Shea Alexandra MD at [facility] INFORMATION 1996 lap HH repair INFORMATION 1997 emergency ulcer surgery INFORMATION 2000 10 hernia repairs with mesh INFORMATION 1976 ovarian cysts removed INFORMATION 1996 incidental cholecystectomy INFORMATION age 25 repair broken nose and R cheek bone IR BIOPSY 03/07/2024 L-/S-SPINE PARAVERTEBRAL FACET INJ,1 LEVEL 08/17/2023 L-/S-SPINE PARAVERTEBRAL FACET INJ, 1 LEVEL performed by Facundo Benitez DO at [facility] L-/S-SPINE PARAVERTEBRAL FACET INJ,1 LEVEL 10/19/2023 L-/S-SPINE PARAVERTEBRAL FACET INJ, 1 LEVEL performed by Facundo Benitez DO at OR [facility] PFT B/A 10/2014 normal RECONSTRUCTION OF NOSE/SEPTUM N/A 08/12/2016 RHINOPLASTY COMPLETE INCLUDING MAJOR SEPTAL REPAIR performed by Shea Alexandra MD at OR [facility] REMOVAL OF APPENDIX Appendectomy REMOVE TONSILS & ADENOIDS, AGE 12+ 1981 Tonsillectomy/Adenoids,12+ Y/O SACROILIAC JOINT INJECT W/GUIDANCE 09/25/2018 INJECTION SACROILIAC JOINT performed by Facundo Benitez DO at OR [facility] SACROILIAC JOINT INJECT W/GUIDANCE 06/04/2019 INJECTION SACROILIAC JOINT performed by Facundo Benitez, DO at OR [facility] SACROILIAC JOINT INJECT W/GUIDANCE 12/08/2022 INJECTION SACROILIAC JOINT performed by Facundo Benitez DO at OR [facility] SKIN TISSUE REARRANGEMENT Bilateral 08/30/2023 SKIN TISSUE REARRANGEMENT performed by Kody Perez MD at OR [facility] SKIN TISSUE REARRANGEMENT, ADD-ON Bilateral 08/30/2023 SKIN TISSUE REARRANGEMENT, ADD-ON performed by Kody Perez MD at OR [facility] THERAPEUTIC FRACTURE OF NOSE Bilateral 08/12/2016 FRACTURE OF NASAL TURBINATES THERAPEUTIC performed by Shea Alexandra MD at OR [facility] TOTAL ABD HYSTERECTOMY W/WO REMOVAL OF TUBE(S) [...] no exercise: Walking daily diet: Low fat holiness/latter-day[place] [facility] [place] status: 2002 children: [...] of Breath or Wheezing. 8.5 g 11 Losartan Potassium 100 MG Oral Tablet (Cozaar) Take 1 Tablet by mouth in the morning. (Patient not taking: Reported on 11/20/2024) 90 Tablet 3 oxyCODONE-Acetaminophen 5-325 MG Oral Tablet (Percocet) Take [...] Oral Tablet (Calcium 500+D3) Take by mouth. Lubiprostone 24 MCG Oral Capsule (Amitiza) Take 1 Capsule by mouth 2 times a day with morning and evening meals. (Patient not taking: Reported on 11/20/2024) 60 Capsule 5 Prochlorperazine Maleate 10 MG Oral Tablet (Compazine) [...] evening meals. (Patient not taking: Reported on 11/20/2024) 180 Tablet 3 Fluticasone Propionate 50 MCG/ACT [...] by mouth at dinner. 120 Capsule 5 SITagliptin Phosphate 50 MG Oral Tablet (Januvia) Take 1 Tablet by mouth in the morning. 90 Tablet 1 Famotidine 20 MG Oral Tablet (Pepcid) Take [...] by mouth at bedtime 60 Capsule 0 Current Facility-Administered Medications Medication Dose Route Frequency Provider Last Rate Last Admin albuterol sulfate (PROVENTIL) (2.5 MG/3ML) 0.083% inhalation solution 2.5 mg 2.5 mg Nebulizer Q4H PRN Stephan Simon MD 2.5 mg at 11/15/17 1121 REVIEW OF SYSTEMS: See HPI - otherwise negative OBJECTIVE: Filed Vitals: 12/11/24 0935 BP: 141/71 Pulse: 72 Temp: 36.8 °C (98.2 °F) TempSrc: Tympanic SpO2: 95% Weight: 105.1 kg (231 lb 11.2 oz) Wt Readings from Last 5 Encounters: 12/11/24 105.1 kg (231 lb 11.2 oz) 11/20/24 106.3 kg (234 lb 4.8 oz) 11/13/24 107 kg (236 lb) 10/11/24 108.4 kg (239 lb) 08/20/24 104.3 kg (230 lb) PHYSICAL EXAM: ECOG: Performance Status 1 = 80-90% Symptoms but nearly ambulatory General Appearance: Normal - Healthy appearing patient in no acute distress Lungs/Thorax: Normal respiratory effort Pulses/Extremities: Normal - 2+ throughout and symmetrical, no edema Neurologic: Normal - Grossly intact LABS: Results for orders placed or performed in visit on 12/10/24 COMPREHENSIVE METABOLIC PANEL Result Value Ref Range BUN 7 6 - 20 mg/dL CREATININE 1.1 (H) 0.5 - 1.0 mg/dL EGFR 58 (L) >=60 mL/min SODIUM 141 135 - 146 mmol/L POTASSIUM 3.8 3.5 - 5.1 mmol/L CHLORIDE 105 98 - 107 mmol/L CO2 24 22 - 32 mmol/L ANION GAP 12 7 - 15 mmol/L GLUCOSE 139 (H) 70 - 120 mg/dL Albumin 4.4 3.8 - 5.0 g/dL AST 23 10 - 35 U/L Alkaline Phosphatase 304 (H) 35 - 130 U/L Bilirubin, Total 0.6 <=1.2 mg/dL CALCIUM 7.7 (L) 8.4 - 10.2 mg/dL Protein 6.8 6.0 - 8.3 g/dL ALT 11 10 - 35 U/L PHOSPHORUS Result Value Ref Range Phosphorus 2.1 (L) 2.5 - 4.8 mg/dL CBC Result Value Ref Range WBC 3.48 (L) 4.00 - 10.80 K/uL RBC 2.67 3.85 - 5.15 M/uL HGB 9.8 (L) 12.0 - 15.3 g/dL HCT 29.8 (L) 36.0 - 45.2 % MCV 111.6 81.5 - 97.5 fL MCH 36.7 27.0 - 34.0 pg MCHC 32.9 32.0 - 36.0 g/dL RDW 14.7 11.5 - 15.5 % PLT 180 140 - 400 K/uL MPV 10.7 6.6 - 11.1 fL nRBCs 0 <=0 /100 WBCs DIFFERENTIAL, AUTOMATED Result Value Ref Range WBC 3.48 (L) 4.00 - 10.80 K/uL Neutrophils % 62.7 40.0 - 75.0 % Lymphocytes % 26.7 18.0 - 42.0 % Monocytes % 6.0 1.0 - 11.0 % Eosinophils % 2.3 0.0 - 6.0 % Basophils % 2.0 0.0 - 2.0 % Immature Granulocytes % 0.3 0.0 - 2.0 % Absolute Neutrophils 2.18 1.80 - 7.70 K/uL Absolute Lymphocytes 0.93 (L) 1.00 - 4.80 K/ul Absolute Monocytes 0.21 0.00 - 1.10 K/uL Absolute Eosinophils 0.08 0.00 - 0.70 K/uL Absolute Basophils 0.07 0.00 - 0.20 K/uL Absolute Immature Granulocytes 0.01 0.00 - 0.20 K/uL *Note: Due to a large number of results and/or encounters for the requested time period, some results have not been displayed. A complete set of results can be found in Results Review. IMPRESSION/PLAN: Metastatic breast cancer to bone Current treatment plan as follows: Faslodex injection every four weeks - patient will receive today Verzenio 100 mg BID Xgeva 120 mg subq every four weeks IM Vitamin B12 1,000 mcg monthly Patient reporting severe diarrhea for the last two weeks. Possible differentials include GI virus and Cdiff as patient does have a history of this. Less likely to be an adverse effect of treatment aspatient has previously tolerated well. Stool sample was ordered by PCP but now diarrhea has resolved. Lab results reviewed: Renal function stable Alk phos elevated but stable at 304 Calcium and phos low at 7.7 and 2.1 Hgb stable at 9.8 Patient will continue calcium/vitamin d supplement TID Will continue current treatment plan at this time. Ok to hold next Xgeva injection until due for Faslodex. Continue monthly labs and MTM f/u - appreciate recommendations Next restaging PET/CT scheduled for 03/04/25 RTC as scheduled with physician for scan review PAULINO El documented in this encounter Nursing Notes * Lin Hernandez CMA - 12/11/2024 9:37 AM EST Patient identifed by name and birthdate Do you have any concerns about pain management for today's visit? No Living Will or Advance Directive for Health Care as noted on the problem list. [facility] is a way you can talk to your provider on line through e-mail. Would you like to sign up? I can activate it for you? ALREADY ACTIVE Filed Vitals: 12/11/24 0935 BP: 141/71 Pulse: 72 Temp: 36.8 °C (98.2 °F) TempSrc: Tympanic SpO2: 95% Weight: 105.1 kg (231 lb 11.2 oz) Patient was instructed to not get [...] Description 01/07/2025 8:00 AM EST Laboratory Laboratory, [facility] [address] [place] [phone] [facility] [address] [place] [address] 01/08/2025 9:30 AM EST Pharmacy Pharmacy Hematology Oncology [facility] [address] [place] [address] [facility] Hem/Onc [address] [place] [address] 01/08/2025 10:15 AM EST Immunization/Inj ection Hematology/Onco logy Treatment, [place] [address] [place] [phone] 01/24/2025 8:00 AM EST Laboratory Laboratory, [address] [place] [phone] [facility] [address] [place] [address] 01/25/2025 12:45 PM EST Immunization/Inj ection Hematology/Onco logy [facility], [place] [address] [facility] [phone] 03/04/2025 9:45 AM EDT Imaging Radiology [address], [place] [address] [place] [address] 03/04/2025 11:00 AM EDT Imaging Radiology [address], [place] [address] [place] [address] 03/11/2025 10:45 AM EDT Office Visit Orthopaedics [facility] [address] [place] [phone] Javed Salas, [address] [place] [phone] 03/14/2025 11:00 AM EDT Office Visit Hematology/Onco logy [facility] [address] [facility] [place] [phone] Marquis Christiansen MD [address] [place] [address] 04/01/2025 1:00 PM EDT Hospital Encounter ENDO [facility], Endoscopy Room [facility] [address] [place] [phone] Amilcar Duran MD [address] [place] [address] 04/01/2025 1:00 PM EDT - 04/01/2025 1:30 PM EDT Surgery ENDO [facility], Endoscopy Room [facility] [address] [place] [phone] Amilcar Duran MD [address] [place] [address] ESOPHAGOGASTRODUODENOSCOPY (EGD), FLEXIBLE, TRANSORAL, DIAGNOSTIC 07/04/2025 2:00 PM EDT Office Visit Cardiology, [facility] [address] [place] [address] Homar Ware PA-C [address] [place] [address] Scheduled Procedures Name Priority Associated Diagnoses Date/Ti [...] 02/20/2025 08/22/2024, 02/04/2024, 08/04/2023, Additional history exists Depression Monitoring 08/20/2025 [...] malignant neoplasm of bone and bone marrow Gastroesophageal reflux disease, unspecified whether esophagitis present [...] Discussed due to patient's condition Care Teams Life Science Technician Relationship Specialty Start Date End Date Rowena Banks PA-C PCP - General Physician Tennis Director 06/01/22 documented as of this encounter
--- OUTSIDE RECORDS SUMMARY | 2025-04-07 11:47 | External Medical Summary ---
Author Name Unknown Address Unknown Organization K01:LABORATORY [facility] [place] [address] [place] [address] Laboratory Report Ordering Provider Test Date Status SINDHU ALFARO 12/24/2024 13:30:00 Final Observation Date Value Abnormality Reference (Units ) Status Vitamin B12 12/24/2024 13:30:00 [phone] (pg/mL) Final Performing Location LABORATORY [facility] - [address] [place] [id number]
--- OUTSIDE RECORDS SUMMARY | 2025-04-07 11:47 | External Medical Summary | Summary of Care ---
Author Name Unknown Organization [facility] Address [address] [facility] [place] [address] Phone [phone] Care Team Providers Care Appointment Coordinator Name Role Phone Rowena Banks PA-C Primary Care Provider +[phone] Reason for Visit * Reason Onset Date Comments Advice 12/24/2024 Dr. Christiansen Encounter Details Date Type Department Care Team (Late st Contact Info) Description 12/24/2024 Telephone Hematology/Oncology [facility] [place] [address] [place] [phone] Marquis Christiansen MD [address] [place] [address] Advice (Dr. Christiansen) Allergies Active Allergy Reactions Criticality Noted Date [...] as of this encounter (statuses as of 12/24/2024) Medications COMBIGAN 0.2-0.5 % ophthalmic solution Instill [...] as of this encounter (statuses as of 12/24/2024) Active Problems Problem Noted Date Diagnosed Date [...] as of this encounter (statuses as of 12/24/2024) Resolved Problems Problem Noted Date Diagnosed Date [...] as of this encounter (statuses as of 12/24/2024) Immunizations Name Administration Dates Next Due COVID-19 [...] Telephone Encounter - Estela Whitlock RN - 12/24/2024 10:32 AM EST Called patient. She states that she has been feeling weak for about a week now. Dizziness started yesterday, sometimes feels like she is going to pass out when she stands. Denies diarrhea or nausea. States that she is down 12 lbs in the past week because she just isnt eating- reports that she has no appetite. She is drinking fluids but admits probably not enough. Discussed that patient does need to push PO intake, can supplement with boost/ ensure. Offered appts for today for labs/ Carlene/ possible hydration, patient accepted. Message sent to scheduling to add appts. * Telephone Encounter - Monica Jimenez OSA - 12/24/2024 10:03 AM EST What is the reason for call? weakness for about a week now, also feeling very dizzy and lightheaded. What Clinic is the patient trying to reach? Hem/Onc [place] Call was sent to clinic nurse pool for callback per message sent on TT documented in this encounter Plan of Treatment Upcoming Encounters Date Type Department Care Team (Latest Contact Info) Description 12/25/2024 8:00 AM EST Office Visit Cardiology, [facility] [address] [place] [address] Homar Ware PA-C [address] [place] [address] 01/07/2025 8:00 AM EST Laboratory Laboratory, [address] [place] [phone] Mavis [place] [place] [address] 01/08/2025 9:30 AM EST Pharmacy Pharmacy Hematology Oncology [facility] [address] [place] [address] [facility] [place] Hem/Onc [address] [place] [address] 01/08/2025 10:15 AM EST Immunization/Inj ection Hematology/Onco logy Treatment, [address] [phone] 01/24/2025 8:00 AM EST [facility], [facility] [place] [phone] [facility] [address] 01/25/2025 12:45 PM EST Immunization/Inj ection Hematology/Onco logy Treatment, [address] [phone] 03/04/2025 9:45 AM EDT Imaging Radiology [address] [place] [phone] 03/04/2025 11:00 AM EDT Imaging Radiology [address] [place] [address] 03/11/2025 10:45 AM EDT Office Visit Orthopaedics [facility] [address] [place] [phone] Javed Salas, DO [address] [place] [address] 03/14/2025 11:00 AM EDT Office Visit Hematology/Onco logy [address] [address] Marquis Christiansen MD [address] [place] [facility] [address] 04/01/2025 1:00 PM EDT Hospital Encounter ENDO [facility], Endoscopy Room [facility] [address] [place], [place] [phone] Amilcar Duran MD [address] [place] [address] 04/01/2025 1:00 PM EDT - 04/01/2025 1:30 PM EDT Surgery ENDO [facility], Endoscopy Room [facility] [address] [place] [phone] Amilcar Duran MD [address] [place] [address] ESOPHAGOGASTRODUODENOSCOPY (EGD), FLEXIBLE, TRANSORAL, DIAGNOSTIC Scheduled Procedures [...] filedocumented as of this encounter Results * MAGNESIUM (12/24/2024 1:30 PM EST) Magnesium 2.5 1.5 - 2.6 mg/dL 12/24/2024 1:54 PM EST LAB[facility]ATORY [place] 56-02 Blood Venous blood specimen / Unknown Venipuncture / Unknown 12/24/2024 1:30 PM EST 12/24/2024 1:30 PM EST us Marquis Christiansen MD LAB BLOOD ORDERABLES Final Res ult [facility] [address] [place], [place] [phone] * (ABNORMAL) COMPREHENSIVE METABOLIC PANEL (12/24/2024 1:30 PM EST) BUN 21(H) 6 - 20 mg/dL 12/24/2024 1:54 PM EST [facility] 56 CREATININE 1.0 0.5 - 1.0 mg/dL 12/24/2024 1:54 PM EST [facility] 56 EGFR 60 >=60 mL/min 12/24/2024 1:54 PM [facility] 56 Comment:eGFR is calculated b ased on the CKD-EPI 2020 equation. SODIUM 139 135 - 146 mmol/L 12/24/2024 1:54 PM [facility] 56 POTASSIUM 4.6 3.5 - 5.1 mmol/L 12/24/2024 1:54 PM [facility] 56 CHLORIDE 106 98 - 107 mmol/L 12/24/2024 1:54 PM [facility] 56 CO2 23 22 - 32 mmol/L 12/24/2024 1:54 PM [facility] 56 ANION GAP 10 7 - 15 mmol/L 12/24/2024 1:54 PM [facility] 56 GLUCOSE 101 70 - 120 mg/dL 12/24/2024 1:54 PM [facility] 56 Albumin 4.2 3.8 - 5.0 g/dL 12/24/2024 1:54 PM [facility] 56 AST 24 10 - 35 U/L 12/24/2024 1:54 PM [facility] 56- Alkaline Phosphatase 430(H) 35 - 130 U/L 12/24/2024 1:54 PM [facility] 56- Bilirubin, Total 0.5 <=1.2 mg/dL 12/24/2024 1:54 PM [facility] 56 CALCIUM 8.7 8.4 - 10.2 mg/dL 12/24/2024 1:54 PM [facility] 56- Protein 7.6 6.0 - 8.3 g/dL 12/24/2024 1:54 PM EST [facility] 56-02 ALT 7(L) 10 - 35 U/L 12/24/2024 1:54 PM EST [facility] 56-02 Blood Venous blood specimen / Unknown Venipuncture / Unknown 12/24/2024 1:30 PM EST 12/24/2024 1:30 PM EST Marquis Christiansen MD LAB BLOOD ORDERABLES Final Res ult [facility] 56- [address] [place] [address] documented in this encounter Visit Diagnoses Diagnosis [...] Discussed due to patient's condition Care Teams Appointment Coordinator Relationship Specialty Start Date End Date Rowena Banks PA-C PCP - General Physician Cooky Machine Operator 06/01/22 documented as of this encounter
--- OUTSIDE RECORDS SUMMARY | 2025-04-07 11:47 | External Medical Summary | Summary of Care ---
Author Name Unknown Organization [facility] Address [address] [facility] [place] [address] Phone [phone] Care Team Providers Care Investment Director Name Role Phone Rowena Banks PA-C Primary Care Provider [phone] Reason for Visit * Reason Onset Date Comments Medication Refill 12/14/2024 Encounter Details Date Type Department Care Team (Late st Contact Info) Description 12/14/2024 Refill Hematology/Oncology [facility] [place] [address] [facility] [place] [address] Marquis Christiansen MD 200 [facility] [place] [address] 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 30 Tablet 3 12/14/19 25 Active Hospital, Clinic, or Other Facility [...] Telephone Encounter - Marquis Christiansen MD - 12/14/2024 5:17 PM EST E-prescribed Zofran 8 mg tablet, 1 tablet every 8 hourly as needed. 30 tablets with 3 refills. * Telephone Encounter - Elizabeth Denise LPN - 12/14/2024 11:50 AM ESTPending Prescriptions: Disp Refills Ondansetron HCl 4 MG Oral Tablet (Zofran) 30 Tab*3 Sig: Take 2 Tablets by mouth every 8 hours as needed for Nausea. * Telephone Encounter - Elizabeth Denise LPN - 12/14/2024 11:48 AM EST Refill request for Ondansetron Hcl 4 mg tab pended below: Last Refill: 10/29/2024 Last seen: 12/11/2024 Next Appt.: 03/14/2025 Requesting: Patient documented in this encounter Plan of Treatment Upcoming Encounters Date Type Department Care Team (Latest Contact Info) Description 01/07/2025 8:00 AM EST Laboratory Laboratory, [address] [place] [phone] [facility] [address] [place] [address] 01/08/2025 9:30 AM EST Pharmacy Pharmacy Hematology Oncology [address] [address] [facility] [place] [facility] Hem/Onc [facility] [place] [address] 01/08/2025 10:15 AM EST Immunization/Inj ection Hematology/Onco logy [address], [address] [address] 01/24/2025 8:00 AM EST Laboratory Laboratory, [address] [place] [phone] [facility] [address] [place] [address] 01/25/2025 12:45 PM EST Immunization/Inj ection Hematology/Onco logy Treatment, [address] [address] 03/04/2025 9:45 AM EDT Imaging Radiology [facility] [place] [address] [place] [address] 03/04/2025 11:00 AM EDT Imaging Radiology [facility] [place] [address] [place] [address] 03/11/2025 10:45 AM EDT Office Visit Orthopaedics [facility] [address] [place] [phone] Javed Salas DO [address] [place] [phone] 03/14/2025 11:00 AM EDT Office Visit Hematology/Onco logy [facility] [address] [facility] [place] [phone] Marquis Christiansen MD [address] [place] [address] 04/01/2025 1:00 PM EDT Hospital Encounter ENDO [facility], Endoscopy Room [facility] [address] [place] [phone] Amilcar Duran MD [address] [place] [address] 04/01/2025 1:00 PM EDT - 04/01/2025 1:30 PM EDT Surgery ENDO [facility], Endoscopy Room [facility] [address] [place] [phone] Amilcar Duran MD [address] [place] [address] ESOPHAGOGASTRODUODENOSCOPY (EGD), FLEXIBLE, TRANSORAL, DIAGNOSTIC 07/04/2025 2:00 PM EDT Office Visit Cardiology, [facility] [address] [place] [address] Homar Ware PA-C [address] [place] [address] Scheduled Procedures Name Priority Associated Diagnoses Date/Ti [...] 11/12/2024, Additional history exists Colonoscopy 02/28/2028 02/27/2018, 0 [...] Discussed due to patient's condition Care Teams Investment Director Relationship Specialty Start Date End Date Rowena Banks PA-C PCP - General Physician Career Development Counselor 06/01/22 documented as of this encounter
--- OUTSIDE RECORDS SUMMARY | 2025-04-07 11:47 | External Medical Summary | Summary of Care ---
Author Name Unknown Organization [facility] Address [address] [facility] [address] Phone [phone] Care Team Providers Care Loop Tender Name Role Phone Rowena Banks PA-C Primary Care Provider [phone] Reason for Visit * Reason Onset Date Comments Advice 12/24/2024 Dr. Christiansen Encounter Details Date Type Department Care Team (Late st Contact Info) Description 12/24/2024 Telephone Hematology/Oncology [facility] [place] [address] [place] [phone] Marquis Christiansen MD [address] [place] [address] Advice (Dr. Christiansen) Allergies Active Allergy Reactions [...] 12/25/2024 8:00 AM EST Office Visit Cardiology, [facility] [address] [place] [address] Homar Ware PA-C [address] [place] [address] 01/07/2025 8:00 AM EST Laboratory Laboratory, [address] [place] [phone] Mavis Rainey [address] [place] [address] 01/08/2025 9:30 AM EST Pharmacy Pharmacy Hematology Oncology [facility] [address] [place] [address] [facility] Hem/Onc [address] [place] [address] 01/08/2025 10:15 AM EST Immunization/Inj ection Hematology/Onco logy Treatment, [address] [address] 01/24/2025 8:00 AM EST Laboratory Laboratory, [place] [facility] [address] [facility] [place] [address] [facility] [address] 01/25/2025 12:45 PM EST Immunization/Inj ection Hematology/Onco logy Treatment, [address] [phone] 03/04/2025 9:45 AM EDT Imaging Radiology [address] [place] [address] 03/04/2025 11:00 AM EDT Imaging Radiology [address] [place] [address] 03/11/2025 10:45 AM EDT Office Visit Orthopaedics [facility] [address] [place] [phone] Javed Salas, DO [address] [place] [address] 03/14/2025 11:00 AM EDT Office Visit Hematology/Onco logy [address] [address] Marquis Christiansen MD [address] [facility] [place] [address] 04/01/2025 1:00 PM EDT Hospital Encounter ENDO [facility], Endoscopy Room [facility] [address] [place], [place] [phone] Amilcar Duran MD [address] [place] [address] 04/01/2025 1:00 PM EDT - 04/01/2025 1:30 PM EDT Surgery ENDO [facility], Endoscopy Room [facility] [address] [place] [phone] Amilcar Duran MD [address] [place] [address] ESOPHAGOGASTRODUODENOSCOPY (EGD), FLEXIBLE, TRANSORAL, DIAGNOSTIC Scheduled Procedures [...] 2.6 mg/dL 12/24/2024 1:54 PM EST [facility] [place] 56-02 Blood Venous blood specimen / Unknown Venipuncture / Unknown 12/24/2024 1:30 PM EST 12/24/2024 1:30 PM EST us Marquis Christiansen MD LAB BLOOD ORDERABLES Final Res ult [facility] [address] [place], [place] [phone] * (ABNORMAL) COMPREHENSIVE METABOLIC PANEL (12/24/2024 1:30 PM EST) BUN 21(H) 6 - 20 mg/dL 12/24/2024 1:54 PM EST [facility] 56 CREATININE 1.0 0.5 - 1.0 mg/dL 12/24/2024 1:54 PM EST [facility] 56 EGFR 60 >=60 mL/min 12/24/2024 1:54 PM [facility] 56 Comment:eGFR is calculated b ased on the CKD-EPI 2020 equation. SODIUM 139 135 - 146 mmol/L 12/24/2024 1:54 PM [facility] 56 POTASSIUM 4.6 3.5 - 5.1 mmol/L 12/24/2024 1:54 PM [facility] 56 CHLORIDE 106 98 - 107 mmol/L 12/24/2024 1:54 PM [facility] 56 CO2 23 22 - 32 mmol/L 12/24/2024 1:54 PM [facility] 56 ANION GAP 10 7 - 15 mmol/L 12/24/2024 1:54 PM [facility] 56 GLUCOSE 101 70 - 120 mg/dL 12/24/2024 1:54 PM [facility] 56 Albumin 4.2 3.8 - 5.0 g/dL 12/24/2024 1:54 PM [facility] 56 AST 24 10 - 35 U/L 12/24/2024 1:54 PM [facility] 56- Alkaline Phosphatase 430(H) 35 - 130 U/L 12/24/2024 1:54 PM [facility] 56- Bilirubin, Total 0.5 <=1.2 mg/dL 12/24/2024 1:54 PM [facility] 56 CALCIUM 8.7 8.4 - 10.2 mg/dL 12/24/2024 1:54 PM [facility] 56- Protein 7.6 6.0 - 8.3 g/dL 12/24/2024 1:54 PM EST [facility] 56-02 ALT 7(L) 10 - 35 U/L 12/24/2024 1:54 PM EST [facility] 56-02 Blood Venous blood specimen / Unknown Venipuncture / Unknown 12/24/2024 1:30 PM EST 12/24/2024 1:30 PM EST Marquis Christiansen MD LAB BLOOD ORDERABLES Final Res ult [facility] 56- [address] [place] [address] documented in this encounter Visit Diagnoses Diagnosis [...] Discussed due to patient's condition Care Teams Loop Tender Relationship Specialty Start Date End Date Rowena Banks PA-C PCP - General Physician Fur Farmer 06/01/22 documented as of this encounter
--- OUTSIDE RECORDS SUMMARY | 2025-04-07 11:47 | External Medical Summary ---
Author Name Unknown Address Unknown Organization K[facility] 56-02 - [address] [place] [address] Laboratory Report Ordering Provider Test Date Status DINESH MOBLEY 12/24/2024 13:30:00 Final Observation Date Value Abnormality Reference (Units ) Status BUN 12/24/2024 13:30:00 21 Above high normal 6-20 (mg/dL) Final Creatinine 12/24/2024 13:30:00 1.0 0.5-1.0 (mg/dL) Final Glomerular filtration rate/1.73 sq M.predicted [Volume Rate/Area] in Serum, Plasma or Blood by Creatinine-based formula (CKD-EPI) 12/24/2024 13:30:00 60 >=60 (mL/min) Final eGFR is calculated based on the CKD-EPI 2020 equation. Sodium 12/24/2024 13:30:00 139 135-146 (m mol/L) Final Potassium 12/24/2024 13:30:00 4.6 3.5-5.1 (m mol/L) Final Cl 12/24/2024 13:30:00 106 98-107 (mm ol/L) Final CO2 12/24/2024 13:30:00 23 22-32 (mmo l/L) Final Anion gap 12/24/2024 13:30:00 10 7-15 (mmol /L) Final Glucose 12/24/2024 13:30:00 101 70-120 (mg /dL) Final Albumin 12/24/2024 13:30:00 4.2 3.8-5.0 (g /dL) Final AST (Aspartate aminotransferase) 12/24/2024 13:30:00 24 10-35 (U/L) Fin al Alk Phos 12/24/2024 13:30:00 430 Above high normal 35 -130 (U/L) Final Bilirubin, Total 12/24/2024 13:30:00 0.5 <=1 .2 (mg/dL) Final Calcium 12/24/2024 13:30:00 8.7 8.4-10.2 ( mg/dL) Final Protein 12/24/2024 13:30:00 7.6 6.0-8.3 (g /dL) Final ALT (Alanine aminotransferase) 12/24/2024 13:30:00 7 Below low normal 10-35 (U/L) Final Performing Location [facility]- 02 - [address] [place] [address]
--- OUTSIDE RECORDS SUMMARY | 2025-04-07 11:47 | External Medical Summary ---
Author Name Unknown Address Unknown Organization [facility] [address] Laboratory Report Ordering Provider Test Date Status DINESH MOBLEY 12/24/2024 13:30:00 Final Observation Date Value Abnormality Reference (Units ) Status Magnesium 12/24/2024 13:30:00 2.5 1.5-2.6 (m g/dL) Final Performing Location [facility] [place] [address]
--- OUTSIDE RECORDS SUMMARY | 2025-04-07 11:47 | External Medical Summary ---
Author Name Unknown Address Unknown Organization [facility] [place] [address] Laboratory Report Ordering Provider Test Date Status DINESH MOBLEY 12/24/2024 13:30:00 Final Observation Date Value Abnormality Reference (Units ) Status WBC, Total 12/24/2024 13:30:00 5.64 4.00-10.8 0 (K/uL) Final RBC 12/24/2024 13:30:00 2.94 3.85-5.15 (M/uL) Final Hemoglobin 12/24/2024 13:30:00 10.6 Below low normal 12 .0-15.3 (g/dL) Final HCT 12/24/2024 13:30:00 32.1 Below low normal 36. 0-45.2 (%) Final MCV 12/24/2024 13:30:00 109.2 81.5-97.5 (fL) Final MCH 12/24/2024 13:30:00 36.1 27.0-34.0 (pg) Final MCHC 12/24/2024 13:30:00 33.0 32.0-36.0 (g/dL) Final RDW 12/24/2024 13:30:00 13.8 11.5-15.5 (%) Final Platelets 12/24/2024 13:30:00 188 140-400 (K /uL) Final MPV 12/24/2024 13:30:00 9.9 6.6-11.1 ( fL) Final Performing Location [facility] [place] [address]
--- OUTSIDE RECORDS SUMMARY | 2025-04-07 11:47 | External Medical Summary | Summary of Care ---
Author Name Unknown Organization [facility] Address [address] [facility] [place] [address] Phone [phone] Care Team Providers Care Lead Ramp Agent Name Role Phone Rowena Banks PA-C Primary Care Provider [phone] Reason for Referral * Precert (Within 10 days (routine)) - Authorized Specialty Diagnoses / Procedures Referred By Contdea t Referred To Contact Pain Medicine Diagnoses Primary osteoarthritis of both knees Procedures INJECT MAJOR JX/BURSA W/O US GUIDE Javed Salas DO [address] [place] [address] Phone: tel: fax: Referral ID Status Reason Start Date Expiration Date V isits Requested Visits Authorized [id number] Authorized 12/10/2024 999 999 Reason for Visit * Reason Comments Follow Up Bilateral knee Encounter Details Date Type Department Care Team (Latest Contact Info) Description 12/10/2024 11:45 AM EST Office Visit Orthopaedics [facility] [address] [place] [phone] Javed Salas DO [address] [place] [address] Primary osteoarthritis of both knees* Allergies Active Allergy Reactions Criticality Noted Date [...] as of this encounter (statuses as of 12/10/2024) Medications COMBIGAN 0.2-0.5 % ophthalmic solution Instill [...] mouth in the morning. 06/09/20 20 Active LoudCloud SystemsTouch Verio w/Device KitIndications:T ype 2 diabetes mellitus with hemoglobin A1c goal of less than 7.0% (HCC) Use up to twice times a day E11.9 1 Kit 04/15/20 22 Active LoudCloud SystemsTouch Verio In Vitro Strip (Glucose Blood)Indication s:Type 2 diabetes mellitus with hemoglobin A1c goal of less than 7.0% (HCC) Use up to 2 times a day E11.9 100 Strip 11 04/15/20 22 Active LoudCloud SystemsTouch UltraSoft LancetsIndicatio ns:Type 2 diabetes mellitus with [...] (PROVENTIL) (2.5 MG/3ML) 0.083% inhalation solution 2.5 mgIndications:Restricti ve lung disease,SOB (shortness of breath) 2.5 mg NEBULIZER Q4H PRN 11/07/2017 Act roe lidocaine 1% 1 mL - triamcinolone acetonide 40 mg/mL 1 mL inj 2 mLIndications:Primary osteoarthritis of both knees 2 mL IJ ONCE 12/10/2024 12/10/2024 Ended lidocaine 1% 1 mL - triamcinolone acetonide 40 mg/mL 1 mL inj 2 mLIndications:Primary osteoarthritis of both knees 2 mL IJ ONCE 12/10/2024 12/10/2024 Ended documented as of this encounter (statuses as of 12/10/2024) Active Problems Problem Noted Date Diagnosed Date [...] as of this encounter (statuses as of 12/10/2024) Resolved Problems Problem Noted Date Diagnosed Date [...] as of this encounter (statuses as of 12/10/2024) Immunizations Name Administration Dates Next Due COVID-19 [...] (FluLaval or Fluzone) 09/23/2020,10/05/2019 Seasonal Influenza, Quadriva ayla, No Preserve, IM 08/17/2018 08/17/2019 TDAP, Age [...] as of this encounter Progress Notes * Javed Salas, DO - 12/10/2024 11:45 AM EST Sarah Burgos [id number] INJECTION NOTE Sarah Burgos is a 69 year old female who presents to [facility] for Bilateral knee injections Last injected on 08/29/24 Today: She would like repeat injections. Patient Active Problem List Diagnosis Type 2 [...] breast metastatic to axillary lymph node (HCC) Body mass index (BMI) of 40.0 to 44.9 in adult ([facility] Encounter for care related to vascular access port History of breast cancer BRCA negative Carotid stenosis, non-symptomatic, bilateral HLA B27 (HLA B27 positive) Primary osteoarthritis of both knees Chronic diastolic congestive heart failure (HCC) Hypertensive heart disease with chronic diastolic congestive heart failure (HCC) History of small bowel obstruction B12 deficiency Current Outpatient Medications Medication Sig Dispense Refill COMBIGAN 0.2-0.5 % ophthalmic solution Instill 1 Drop into both eyes in the morning and 1 Drop before bedtime. Naproxen Sodium 550 MG Oral Tablet TAKE 1 TABLET BY MOUTH TWICE A DAY WITH BREAKFAST AND DINNER 180Tablet 1 aspirin enteric coated 81 MG TBEC Take 1 Tablet by mouth in the morning. Powered Outcomesuch Verio w/Device Kit Use up to twice times a day E11.9 1 Kit 0 LoudCloud SystemsTouch Verio In Vitro Strip (Glucose Blood) Use up to 2 times a day E11.9 100 Strip 11 Powered Outcomesuch UltraSoft Lancets Use as directed 2 times [...] by mouth at dinner. 120 Capsule 5 Gabapentin 300 MG Oral Capsule (Neurontin) Take 2 Capsules by mouth at bedtime. 60 Capsule 1 SITagliptin Phosphate 50 MG Oral Tablet (Januvia) [...] as needed for Nausea. 30 Tablet 3 Current Facility-Administered Medications Medication Dose Route Frequency Provider Last Rate Last Admin albuterol sulfate (PROVENTIL) (2.5 MG/3ML) 0.083% inhalation solution 2.5 mg 2.5 mg Nebulizer Q4H Stephan Jameson MD 2.5 mg at 11/15/17 1121 Hemoglobin AIC Results: Lab Results Component Value Date/Time HEMOGLOBIN A1C - [facility] 4.9 08/22/2024 07:47 AM HEMOGLOBIN A1C - [facility] 7.7 (H) 01/16/2024 11:03 AM HEMOGLOBIN A1C - [facility] 6.1 (H) 08/04/2023 12:20 PM HEMOGLOBIN A1C - [facility] 5.3 04/17/2020 08:59 AM HEMOGLOBIN A1C - [facility] 5.6 09/17/2019 09:58 AM HEMOGLOBIN A1C - [facility] 5.1 08/12/2015 09:53 AM PE: Bilateral knees have full range of motion 5/5 strength no significant effusion Tender to palpation bilateral medial joint lines Radiology: repeat imaging not indicated Assessment and Plan: see procedure note, f/u 3 months. Monitor blood sugar Primary osteoarthritis of both knees (Primary) - lidocaine 1% 1 mL - triamcinolone acetonide 40 mg/mL 1 mL inj 2 mL - lidocaine 1% 1 mL - triamcinolone acetonide 40 mg/mL 1 mL inj 2 mL - INJECT MAJOR JX/BURSA W/O US GUIDE JOSE Sanderson DOA, FAAFP, RMSK [facility] Sports Scoop DriverGypsum Block Setter Primary Care Sports Medicine Team Physician [facility] Office locations: Orthopaedics [place] [address] This chart was completed in part utilizing [employer] Speech Voice Recognition Software. Grammatical errors, random word insertions, pronoun errors, and incomplete sentences are an occasional consequence of this system due to software limitations, ambient noise, and hardware issues. Any formal questions or concerns about the content, text, or information contained within the body of this dictation should be directly addressed to the provider for clarification. Procedure note (knee/injection), bilateral Time out: Prior to injection, a time out was called to confirm the administration of appropriate medicine, patient name, procedure and confirm to the best of our ability and knowledge the presence of any necessary risks and benefits. Patient verbalizes understanding. Proper approach-lateral Reviewed benefits including potential pain reduction and improved function as well as risks including worsening pain or infection in detail with patient and patient verbalizes understanding. Sterile techinique applied. Skin sterilized with alcohol swab. Knee injected using 1.5 inch, 22 gauge needle with lidocaine 1% 1 mL - triamcinolone acetonide 40 mg/mL 1 mL inj 2 mL Patient tolerated procedure with no significant bleeding or adverse reaction. Patient instructed to call or return to clinic for fever or warmth and redness at injection site for potential infection. Patient also advised as to potential for steroid flare reaction including increased pain and redness at injection site which should be treated with ice and resolve within 24 hours. Javed Salas DO documented in this encounter Nursing Notes * Becca Serrano MED ASSIST - 12/10/2024 11:53 AM EST Follow up Patient Follow up: Knee Side: Bilateral Date of last visit: Improvement since last office visit: 0 percent. Prior Treatment: Injection Here for Test Results: No Goals for this appointment: inj documented in this encounter Plan of Treatment Upcoming Encounters Date Type Department Care Team (Latest Contact Info) Description 12/11/2024 9:30 AM EST Pharmacy Pharmacy Hematology Oncology [address] [address] [facility] Hem/Onc [address] [place] [address] 12/11/2024 9:30 AM EST Office Visit Hematology/Onco logy [facility] [phone] Carlene Alcantara CRNP [address] [place] [address] [place] [address] 12/11/2024 10:15 AM EST Immunization/Inj ection Hematology/Onco logy [facility] [place] 200 [place] [address] 12/27/2024 8:00 AM EST Laboratory Laboratory, [address] [place] [phone] [facility] [address] [place] [address] 12/28/2024 12:45 PM EST Immunization/Inj ection Hematology/Onco logy Treatment, [address], [place] [phone] Nimo, Chair 2 Hem Onc [address] [place] [address] 01/24/2025 8:00 AM EST Laboratory Laboratory, [address] [place] [phone] [facility] [address] [place] [address] 01/25/2025 12:45 PM EST Immunization/Inj ection Hematology/Onco logy Treatment, [address], [place] [phone] 03/04/2025 9:45 AM EDT Imaging Radiology [address] [place] [address] 03/04/2025 11:00 AM EDT Imaging Radiology [address] [place] [phone] 03/11/2025 10:45 AM EDT Office Visit Orthopaedics [facility] [address] [place] [phone] Javed Salas, [address] [place] [address] 03/14/2025 11:00 AM EDT Office Visit Hematology/Onco logy [address] [place] [address] Marquis Christiansen MD [address] [place] [address] 04/01/2025 1:00 PM EDT [facility] [address] [place] [phone] Amilcar Duran MD [address] [place] [address] 04/01/2025 1:00 PM EDT - 04/01/2025 1:30 PM EDT Surgery ENDO [facility], Endoscopy Room [facility] [address] [place] [phone] Amilcar Duran MD [address] [place] [address] ESOPHAGOGASTRODUODENOSCOPY (EGD), FLEXIBLE, TRANSORAL, DIAGNOSTIC 07/04/2025 2:00 PM EDT Office Visit Cardiology, [facility] [address] [place] [address] Homar Ware, PAMarimarC [address] [place] [address] Scheduled Orders Name Type Priority Associated Diagnoses Orde r Schedule INJECT MAJOR JX/BURSA W/O US GUIDE Procedures Routine Primary osteoarthritis of both knees Ordered: 12/10/2024 Scheduled Procedures Name Priority Associated Diagnoses Date/Ti [...] from 08/12/2017 (Patient Declined After Education) GFR 11/29/2025 11/29/2024, 10/22, 10/17/2024, Additional history exists Colonoscopy 02/28/2028 02/27/2018, 040 [...] as of this encounter Visit Diagnoses Diagnosis Primary osteoarthritis of both knees- Primary Primary localized osteoarthrosis, lower leg Gastroesophageal reflux disease, unspecified whether esophagitis present documented in this encounter Administered Medications Inactive Administered Medications - up to 3 most recent administrations Medication Order MAR Action Action Date Dose Rate Site lidocaine 1% 1 mL - triamcinolone acetonide 40 mg/mL 1 mL inj 2 mL 2 mL, Injection, ONCE, On Tue12/10/24 at 1230, For 1 dose, Lidocaine 1% 1mL Triamcinolone Acetonide 40 mg/mL 1 mL (Final concentration = 20 mg/mL) REFRIGERATE and SHAKE WELLIndications:Primary osteoarthritis of both knees Given 12/10/2024 11:59 AM EST 2 mL Knee Right lidocaine 1% 1 mL - triamcinolone acetonide 40 mg/mL 1 mL inj 2 mL 2 mL, Injection, ONCE, On Tue12/10/24 at 1230, For 1 dose, Lidocaine 1% 1mL Triamcinolone Acetonide 40 mg/mL 1 mL (Final concentration = 20 mg/mL) REFRIGERATE and SHAKE WELLIndications:Primary osteoarthritis of both knees Given 12/10/2024 11:59 AM EST 2 mL Knee Left documented in this encounter Additional Health Concerns Infection Onset Date Last Indicated Resolved Time C. difficile Rule-Out 12/10/2024 12/10/2024 documented as of this encounter Advance Directives [...] Discussed due to patient's condition Care Teams Lead Ramp Agent Relationship Specialty Start Date End Date Rowena Banks PA-C PCP - General Physician Corporate Risk Analyst 06/01/22 documented as of this encounter
--- OUTSIDE RECORDS SUMMARY | 2025-04-07 11:47 | External Medical Summary | Summary of Care ---
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) Procedures DC INJECTION, FULVESTRANT Marquis Christiansen MD [address] [place] [address] Phone: tel: fax: Hematology/Oncology Treatment, [address] [address] Phone: tel: fax: Referral ID Status Reason Start Date Expiration Date V isits Requested Visits Authorized [id number] Authorized 03/15/2024 11/20/2099 [id number] Encounter Details Date Type Department Care Team (Late st Contact Info) Description 12/11/2024 10:15 AM EST Immunization/I njection Hematology/Oncology Treatment, [address] [address] Carcinoma of left breast metastatic [...] as of this encounter (statuses as of 12/11/2024) Medications COMBIGAN 0.2-0.5 % ophthalmic solution Instill [...] mouth in the morning. 06/09/20 20 Active SafeRentTouch Verio w/Device KitIndications:T ype 2 diabetes mellitus with hemoglobin A1c goal of less than 7.0% (HCC) Use up to twice times a day E11.9 1 Kit 04/15/20 22 Active SafeRentTouch Verio In Vitro Strip (Glucose Blood)Indication s:Type 2 diabetes mellitus with hemoglobin A1c goal of less than 7.0% (HCC) Use up to 2 times a day E11.9 100 Strip 11 04/15/20 22 Active SafeRentTouch UltraSoft LancetsIndicatio ns:Type 2 diabetes mellitus with [...] as of this encounter (statuses as of 12/11/2024) Active Problems Problem Noted Date Diagnosed Date [...] as of this encounter (statuses as of 12/11/2024) Resolved Problems Problem Noted Date Diagnosed Date [...] as of this encounter (statuses as of 12/11/2024) Immunizations Name Administration Dates Next Due COVID-19 [...] Description 01/07/2025 8:00 AM EST Laboratory Laboratory, [place] [facility] [address] [place] [address] [facility] Laboratory [address] [place] [address] 01/08/2025 9:30 AM EST Pharmacy Pharmacy Hematology Oncology [place] [address] [place] [address] [facility], [facility] Clinic Hem/Onc [facility] [place] [address] 01/08/2025 10:15 AM EST Immunization/Inj ection Hematology/Onco logy Treatment, [place] 200 [facility], [place] [address] 01/24/2025 8:00 AM EST Laboratory Laboratory, [address] [place] [address] [place], Laboratory [address] [place] [address] 01/25/2025 12:45 PM EST Immunization/Inj ection Hematology/Onco logy Treatment, [place] 200 [place] [address] 03/04/2025 9:45 AM EDT Imaging Radiology [address] [place] [address] 03/04/2025 11:00 AM EDT Imaging Radiology [address] [place] [address] 03/11/2025 10:45 AM EDT Office Visit Orthopaedics [facility] [address] [place] [phone] Javed Salas DO [address] [place] [address] 03/14/2025 11:00 AM EDT Office Visit Hematology/Onco logy [address] [place] [phone] Marquis Christiansen MD 200 [facility] [place] [address] 04/01/2025 1:00 PM EDT Hospital Encounter ENDO [facility], Endoscopy Room [facility] [address] [place] [address] Amilcar Duran MD [address] [place] [address] 04/01/2025 1:00 PM EDT - 04/01/2025 1:30 PM EDT Surgery ENDO [facility], Endoscopy Room [facility] [address] [place] [phone] Amilcar Duran MD [address] [place] [address] ESOPHAGOGASTRODUODENOSCOPY (EGD), FLEXIBLE, TRANSORAL, DIAGNOSTIC 07/04/2025 2:00 PM EDT Office Visit Cardiology, [facility] [address] [place] [address] Homar Ware PA-C [address] [place] [address] Scheduled Procedures Name Priority Associated Diagnoses Date/Ti [...] (Patient Declined After Education) GFR 12/10/2025 12/10/2024, 0 07/2025, 11/12/2024, Additional history exists Colonoscopy 02/28/2028 [...] 500 mg 500 mg, Intramuscular, ONCE, On Tu12/11/24 at 1030, For 1 doseIndications:Carcin chela of [...] Discussed due to patient's condition Care Teams Catering Chef Relationship Specialty Start Date End Date Rowena Banks PA-C PCP - General Physician Director Of Nuclear Medicine 06/01/22 documented as of this encounter
--- OUTSIDE RECORDS SUMMARY | 2025-04-07 11:48 | External Medical Summary ---
Author Name Unknown Address Unknown Organization K01:[facility] - [address] [place] [address] Laboratory Report Ordering Provider Test Date Status DINESH MOBLEY 12/10/2024 08:53:51 Final Observation Date Value Abnormality Reference (Units ) Status Phosphate 12/10/2024 08:53:51 2.1 Below low normal 2.5 -4.8 (mg/dL) Final Performing Location [facility] - [address] [place] [address]
--- OUTSIDE RECORDS SUMMARY | 2025-04-07 11:48 | External Medical Summary | Summary of Care ---
Author Name Unknown Organization [facility] Address [address] [facility] [place] [address] Phone [phone] Care Team Providers Care Rail Transit Operator Name Role Phone Rowena Bonilla PA-C Primary Care Provider [phone] [phone] Reason for Visit * Reason Comments eRx-Medication Refill Encounter Details Date Type Department Care Team (Late st Contact Info) Description 12/06/2024 Refill [facility] [address] [place] [address] Rowena Bonilla PA-C 226 [facility] [place] [address] Allergies Active Allergy Reactions Criticality Noted [...] as of this encounter (statuses as of 12/07/2024) Medications COMBIGAN 0.2-0.5 % ophthalmic solution Instill [...] day E11.9 100 Strip 11 022 Active Zheng [employer]i Wireless Science and TechnologyTouch UltraSoft LancetsIndicati ons:Type 2 diabetes mellitus with [...] or Wheezing. 8.5 g 11 024 Active Losartan Potassium 100 MG Oral Tablet (Cozaar)Indicat ions:HTN, goal below 140/90 Take 1 Tablet by mouth in the morning. 90 Tablet 3 024 Active Additional Information Patient not taking.Reported on 11/20/2024 oxyCODONE-Aceta minophen 5-325 MG Oral Tablet (Percocet)Indic [...] and evening meals. 60 Capsule 5 024 Active Additional Information Patient not taking.Reported on 11/20/2024 Prochlorperazin e Maleate 10 MG Oral Tablet [...] (1 tablet) before bedtime. 60 Tablet 5 4 10:11 AM EST 024 Active Gabapentin 100 MG Oral Capsule (Neurontin)Sharee cations:Neuropa thy Take 2 capsules by mouth in the morning and 1 capsule by mouth at lunch and 1 capsule by mouth at dinner. 120 Capsule 5 024 Active SITagliptin Phosphate 50 MG Oral Tablet (Januvia) Take 1 Tablet by mouth in the morning. 90 Tablet 1 024 Active Famotidine 20 MG Oral Tablet (Pepcid) Take 1 Tablet by mouth in the morning and 1 Tablet before bedtime. 180 Tablet 3 024 Active Esomeprazole Magnesium 40 MG Oral Capsule Delayed Release Take 1 Capsule by mouth daily before breakfast. 90 Capsule 3 024 Active hydrALAZINE HCl 25 MG Oral Tablet (Apresoline)Ind ications:HTN, goal below 140/90 Take 1 Tablet by mouth in the morning and 1 Tablet at noon and 1 Tablet before bedtime. 270 Tablet 3 024 Active oxyCODONE HCl 5 MG [...] bedtime. 60 Capsule 1 024 2024 Discontinued Hospital, Clinic, or Other Facility Administered Medication Ordered Dose Route Frequency Start Date End Date Status albuterol sulfate (PROVENTIL) (2.5 MG/3ML) 0.083% inhalation solution 2.5 mgIndications:Restrictive lung disease,SOB (shortness of breath) 2.5 mg NEBULIZER Q4H PRN 11/07/2017 Act roe documented as of this encounter (statuses as of 12/07/2024) Active Problems Problem Noted Date Diagnosed Date [...] as of this encounter (statuses as of 12/07/2024) Resolved Problems Problem Noted Date Diagnosed Date [...] as of this encounter (statuses as of 12/07/2024) Immunizations Name Administration Dates Next Due COVID-19 [...] Telephone Encounter - Rowena Bonilla PA-C - 12/07/2024 9:28 AM ESTSigned Prescriptions: Disp Refills Gabapentin 300 MG Oral Capsule (Neurontin) 60 Cap*0 Sig: Take 2 Capsules by mouth at bedtime Authorizing Provider: ROWENA BONILLA * Telephone Encounter - Cori Moffett LPN - 12/07/2024 7:13 AM ESTPending Prescriptions: Disp Refills Gabapentin 300 MG Oral Capsule [Pharmacy M*60 Cap*0 Sig: Take 2 Capsules by mouth at bedtime. * Telephone Encounter - Elsie Mcgee - 12/06/2024 7:24 PM ESTPending Prescriptions: Disp Refills Gabapentin 300 MG Oral Capsule [Pharmacy M*60 Cap*0 Sig: Take 2Capsules by mouth at bedtime. documented in this encounter Plan of Treatment Upcoming Encounters Date Type Department Care Team (Latest Contact Info) Description 12/10/2024 9:00 AM EST Laboratory Laboratory, [address] [place] [address] Mavis Rainey 226 [place] [address] 12/10/2024 11:45 AM EST Office Visit Orthopaedics [facility] [address] [place] [phone] Javed Salas DO [address] [place] [address] 12/11/2024 9:30 AM EST Pharmacy Pharmacy Hematology Oncology [facility] [place] [address] [place] [address] [facility], [facility] Clinic Hem/Onc [address] [place] [address] 12/11/2024 9:30 AM EST Office [facility] 200 [facility], [place] [phone] Carlene Alcantara CRNP 400 [facility] [place] [phone] 12/11/2024 10:15 AM EST Immunization/Inj ection Hematology/Onco logy Treatment, [place] 200 [place] [address] 12/27/2024 8:00 AM EST Laboratory Laboratory, [address] [place] [phone] [facility] [address] [place] [address] 12/28/2024 12:45 PM EST Immunization/Inj ection Hematology/Onco logy Treatment, [address], [place] [address] Nimo, Chair 2 Hem Onc [place] [address] Bharti [place], [place] [address] 01/24/2025 8:00 AM EST Laboratory Laboratory, [place] [facility] [address] 226 [facility] [place] [phone] [place], Laboratory 226 [facility] [place] [address] 01/25/2025 12:45 PM EST Immunization/Inj ection Hematology/Onco logy Treatment, [address], [place] [phone] 03/04/2025 9:45 AM EDT Imaging Radiology [address], [place] [address] [place] [address] 03/04/2025 11:00 AM EDT Imaging Radiology [address] [place] [address] 03/14/2025 11:00 AM EDT Office Visit Hematology/Onco logy [address] [place], [place] [address] Marquis Christiansen MD 200 [facility] [place], [place] [address] 04/01/2025 1:00 PM EDT Hospital Encounter ENDO [facility], Endoscopy Room [facility] [address] [place] [address] Amilcar Duran MD [address] [place] [address] 04/01/2025 1:00 PM EDT - 04/01/2025 1:30 PM EDT Surgery ENDO [facility], Endoscopy Room [facility] [address] [place] [phone] Amilcar Duran MD [address] [place] [address] ESOPHAGOGASTRODUODENOSCOPY (EGD), FLEXIBLE, TRANSORAL, DIAGNOSTIC 07/04/2025 2:00 PM EDT Office Visit Cardiology, [facility] [address] [place] [address] Homar Ware PA-C [address] [place] [address] Scheduled Procedures Name Priority Associated Diagnoses Date/Ti [...] Adult Wellness Visit 2021 Albumin/Creatinine Ratio 02/01/2024 03/ 023, 09/17/2019, 06/03/2014, Additional history exists COVID-19 [...] Discussed due to patient's condition Care Teams Rail Transit Operator Relationship Specialty Start Date End Date Rowena Bonilla PA-C PCP - General Physician Asset Availability Leader 06/01/22 documented as of this encounter
--- OUTSIDE RECORDS SUMMARY | 2025-04-07 11:48 | External Medical Summary | Summary of Care ---
Author Name Unknown Organization [facility] Address [address] [facility] [place] [address] Phone [phone] Care Team Providers Care Inventory Assistant Name Role Phone Rowena Banks PA-C Primary Care Provider +1 [phone] Reason for Visit * Reason Comments Outpatient Testing Encounter Details Date Type Department Care Team (Late st Contact Info) Description 12/10/2024 9:00 AM EST Laboratory Laboratory, [facility] 226 [facility] [place] [address] [facility] 226 [place] [address] Diarrhea, unspecified type; History of Clostridioides difficile colitis; Malignant neoplasm of upper-outer quadrant of left [...] mouth in the morning. 06/09/20 20 Active Iscopia SoftwareTouch Verio w/Device KitIndications:T ype 2 diabetes mellitus with hemoglobin A1c goal of less than 7.0% (HCC) Use up to twice times a day E11.9 1 Kit 04/15/20 22 Active OneTouch Verio In Vitro Strip (Glucose Blood)Indication s:Type 2 diabetes mellitus with hemoglobin A1c goal of less than 7.0% (HCC) Use up to 2 times a day E11.9 100 Strip 11 04/15/20 22 Active Iscopia SoftwareTouch UltraSoft LancetsIndicatio ns:Type 2 diabetes mellitus with [...] 12/10/2024 11:45 AM EST Office Visit Orthopaedics [facility] [address] [place] [phone] Javed Salas DO [address] [place] [address] 12/11/2024 9:30 AM EST Pharmacy Pharmacy Hematology Oncology [address] [address] [facility], [facility] Hem/Onc [address] [place] [address] 12/11/2024 9:30 AM EST Office Visit Hematology/Onco logy [facility] 200 [facility] [phone] Carlene Alcantara CRNP 400 [place] [address] 12/11/2024 10:15 AM EST Immunization/Inj ection Hematology/Onco logy Treatment, [place] 200 [facility], [place] [phone] 12/27/2024 8:00 AM EST Laboratory Laboratory, [address] [place] [phone] [facility] [address] [place] [address] 12/28/2024 12:45 PM EST Immunization/Inj ection Hematology/Onco logy Treatment, [place] 200 [facility], [place] [address] Nimo, Chair 2 Hem Onc [facility] 200 [place] [address] 01/24/2025 8:00 AM EST Laboratory Laboratory, [place] [facility] [address] 226 [facility] [place] [phone] [place], Laboratory 226 [facility] [place], [place] [address] 01/25/2025 12:45 PM EST Immunization/Inj ection Hematology/Onco logy Treatment, [place] 200 [facility] [address] 03/04/2025 9:45 AM EDT Imaging Radiology [facility] 1st [facility], [place] [address] [place] [address] 03/04/2025 11:00 AM EDT Imaging Radiology [address], [place] [address] [place] [address] 03/14/2025 11:00 AM EDT Office Visit Hematology/Onco logy [facility] [place] 200 [place] [address] Marquis Christiansen MD 200 [place] [address] 04/01/2025 1:00 PM EDT Hospital Encounter ENDO [facility], Endoscopy Room [facility] [address] [place] [address] Amilcar Duran MD [address] [place] [address] 04/01/2025 1:00 PM EDT - 04/01/2025 1:30 PM EDT Surgery ENDO [facility], Endoscopy Room [facility] [address] [place] [address] Amilcar Duran MD [address] [place] [address] ESOPHAGOGASTRODUODENOSCOPY (EGD), FLEXIBLE, TRANSORAL, DIAGNOSTIC 07/04/2025 2:00 PM EDT Office Visit Cardiology, [facility] [address] [place] [address] Homar Ware PA-C [address] [place] [address] Pending Results Name Type Priority Associated Diagnoses Date /Time CBC WITH WBC DIFFERENTIAL Lab STAT Malignant neoplasm of upper-outer quadrant of left breast in female, estrogen receptor positive (HCC) 12/10/2024 8:53 AM EST COMPREHENSIVE METABOLIC PANEL Lab STAT Malignant neoplasm of upper-outer quadrant of left breast in female, estrogen receptor positive (HCC) 12/10/2024 8:53 AM EST PHOSPHORUS Lab STAT Malignant neoplasm of upper-outer quadrant of left breast in female, estrogen receptor positive (HCC) 12/10/2024 8:53 AM EST CBC Lab STAT Malignant neoplasm of upper-outer quadrant of left breast in female, estrogen receptor positive (HCC) 12/10/2024 8:53 AM EST DIFFERENTIAL, AUTOMATED Lab STAT Malignant neoplasm of upper-outer quadrant of left breast in female, estrogen receptor positive (HCC) 12/10/2024 8:53 AM EST Scheduled Procedures Name Priority Associated Diagnoses Date/Ti ms ESOPHAGOGASTRODUODENOSCOPY ( EGD), FLEXIBLE, TRANSORAL, DIAGNOSTIC Gastroesophageal [...] 10/17/2024, Additional history exists Colonoscopy 02/28/2028 02/27/2018, 04/0 [...] this encounter Visit Diagnoses Diagnosis Diarrhea, unspecified type History of Clostridioides difficile colitis Malignant neoplasm of upper-outer quadrant of left [...] Discussed due to patient's condition Care Teams Inventory Assistant Relationship Specialty Start Date End Date Rowena Banks PA-C PCP - General Physician Microfilming Document Preparer 06/01/22 documented as of this encounter
--- OUTSIDE RECORDS SUMMARY | 2025-04-07 11:48 | External Medical Summary | Summary of Care ---
Author Name Unknown Organization [facility] Address [address] [facility] [place] [address] Phone [phone] Care Team Providers Care Flask Maker Name Role Phone Rowena Banks PA-C Primary Care Provider [phone] [phone] Reason for Visit * Reason Comments Medication Administration Vitamin b12 Encounter Details Date Type Department Care Team (Late st Contact Info) Description 10/26/2024 10:30 AM EST Immunization/In jection Hematology/Oncology Treatment, [place] [address] [place] [address] Nimo, Chair 5 Hem Onc [place] [address] [place] [address] B12 deficiency* Allergies Active Allergy [...] as of this encounter (statuses as of 12/01/2024) Medications COMBIGAN 0.2-0.5 % ophthalmic solution Instill [...] the morning. 90 Tablet 3 024 Active oxyCODONE-Aceta minophen 5-325 MG Oral [...] Active Additional Information Patient not taking.Reported on 10/11/2024 Prochlorperazin e Maleate 10 MG Oral Tablet [...] (1 tablet) before bedtime. 60 Tablet 5 11/16/20 24 10:11 AM EST Active Gabapentin 100 MG Oral Capsule (Neurontin)Sharee cations:Neuropa thy Take 2 capsules by mouth in the morning and 1 capsule by mouth at lunch and 1 capsule by mouth at dinner. 120 Capsule 5 024 Active Gabapentin 300 MG Oral Capsule (Neurontin) Take 2 Capsules by mouth at bedtime. 60 Capsule 1 024 Active SITagliptin Phosphate 50 MG Oral [...] for Pain, Moderate. 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 60 Each 1 024 2023 Discontinued Hospital, Clinic, or Other Facility Administered Medication Ordered Dose Route Frequency Start Date End Date Status albuterol sulfate (PROVENTIL) (2.5 MG/3ML) 0.083% inhalation solution 2.5 mgIndications:Restrictive lung disease,SOB (shortness of breath) 2.5 mg NEBULIZER Q4H PRN 11/07/2017 Act roe documented as of this encounter (statuses as of 12/01/2024) Active Problems Problem Noted Date Diagnosed Date [...] as of this encounter (statuses as of 12/01/2024) Resolved Problems Problem Noted Date Diagnosed Date [...] as of this encounter (statuses as of 12/01/2024) Immunizations Name Administration Dates Next Due COVID-19 [...] Nursing Notes * Tameka Loco LPN - 10/26/2024 10:46 AM EST 1030: Pt arrived for vitamin b12 injection. Administered in R deltoid. Pt tolerated well. To returnin one week. Discharged in stable condition. documented in this encounter Plan of Treatment Upcoming Encounters Date Type Department Care Team (Latest Contact Info) Description 12/03/2024 8:00 AM EST Office Visit Orthopaedics [facility] [address] [place] [address] Javed Salas DO [address] [place] [address] 12/10/2024 9:00 AM EST [address] [place] [address] Mavis Rainey 226 [facility] [place] [address] 12/11/2024 9:30 AM EST Pharmacy Pharmacy Hematology Oncology [facility] [address] [place] [address] [facility], [facility] Hem/Onc [address] [place] [address] 12/11/2024 11:45 AM EST Immunization/Inj ection Hematology/Onco logy Treatment, [place] [address] [place] [phone] 12/27/2024 8:00 AM EST Laboratory Laboratory, [address] 226 [facility] [place] [address] [facility] 226 [facility] [place], [place] [address] 12/28/2024 12:45 PM EST Immunization/Inj ection Hematology/Onco logy Treatment, [place] 200 [facility], [place] [phone] [place], Chair [address] [facility] [address] [facility] [place], [place] [address] 01/24/2025 8:00 AM EST Laboratory Laboratory, [place] [facility] 226 [facility] [place] [phone] [facility] 226 [facility] [place], [place] [address] 01/25/2025 12:45 PM EST Immunization/Inj ection Hematology/Onco logy Treatment, [place] 200 [facility], [place] [address] 03/04/2025 9:45 AM EDT Imaging Radiology [address], [place] 132 [facility] [place] [address] 03/04/2025 11:00 AM EDT Imaging Radiology [address] 132 [facility] [place] [address] 03/14/2025 11:00 AM EDT Office Visit Hematology/Onco logy [facility] [place] [address] [facility] [place], [place] [phone] Marquis Christiansen MD [address] [place], [place] [address] 04/01/2025 1:00 PM EDT Hospital Encounter ENDO [facility], Endoscopy Room [facility] 132 [facility] [place] [phone] Amilcar Duran MD 132 [facility] [place] [address] 04/01/2025 1:00 PM EDT - 04/01/2025 1:30 PM EDT Surgery ENDO [facility], Endoscopy Room [facility] [address] [place] [phone] Amilcar Duran MD [address] [place] [address] ESOPHAGOGASTRODUODENOSCOPY (EGD), FLEXIBLE, TRANSORAL, DIAGNOSTIC 07/04/2025 2:00 PM EDT Office Visit Cardiology, [facility] [address] [place] [address] Homar Ware PAMerlene [address] [place] [address] Scheduled Procedures Name Priority Associated Diagnoses Date/Ti [...] 1,000 mcg 1,000 mcg, Intramuscular, ONCE, On Tue10/26/24 at 1130, For 1 doseIndications:B12 deficiency Given 10/26/2024 10:37 AM EST 1,000 mcg Deltoid Right Upper [...] Discussed due to patient's condition Care Teams Flask Maker Relationship Specialty Start Date End Date Rowena Banks PA-C PCP - General Physician Scientific Programmer 06/01/22 documented as of this encounter
--- OUTSIDE RECORDS SUMMARY | 2025-04-07 11:48 | External Medical Summary | Summary of Care ---
Author Name Unknown Organization [facility] Address [address] [facility] [place] [address] Phone [phone] Care Team Providers Care Merchandise Complaint Adjuster Name Role Phone Rowena Banks PA-C Primary Care Provider +1 -[phone] Reason for Visit * Reason Comments Outpatient Testing Encounter Details Date Type Department Care Team (Late st Contact Info) Description 12/10/2024 9:00 AM EST Laboratory Laboratory, [facility] 226 [facility] [place] [address] [facility] 226 [place] [address] Diarrhea, unspecified type; History of Clostridioides difficile [...] mouth in the morning. 06/09/20 20 [address] [employer] AccountingTouch Verio w/Device KitIndications:T ype 2 diabetes mellitus with hemoglobin A1c goal of less than 7.0% (HCC) Use up to twice times a day E11.9 1 Kit 04/15/20 22 Active OneTouch Verio In Vitro Strip (Glucose Blood)Indication s:Type 2 diabetes mellitus with hemoglobin A1c goal of less than 7.0% (HCC) Use up to 2 times a day E11.9 100 Strip 11 04/15/20 22 [address] AccountingTouch UltraSoft LancetsIndicatio ns:Type 2 diabetes mellitus with [...] 12/10/2024 11:45 AM EST Office Visit Orthopaedics [facility] [address] [place] [phone] Javed Salas DO [address] [place] [address] 12/11/2024 9:30 AM EST Pharmacy Pharmacy Hematology Oncology [address] [address] [facility], [facility] Clinic Hem/Onc [address] [place] [address] 12/11/2024 9:30 AM EST Office Visit Hematology/Onco logy [facility] 200 [facility] [phone] Carlene Alcantara CRNP 400 [place] [address] 12/11/2024 10:15 AM EST Immunization/Inj ection Hematology/Onco logy Treatment, [place] 200 [facility], [place] [phone] 12/27/2024 8:00 AM EST Laboratory Laboratory, [address] [place] [phone] [facility] [address] [place] [address] 12/28/2024 12:45 PM EST Immunization/Inj ection Hematology/Onco logy Treatment, [place] 200 [facility], [place] [address] Nimo, Chair 2 Hem Onc [facility] 200 [facility] [place] [address] 01/24/2025 8:00 AM EST Laboratory Laboratory, [place] [facility] [address] 226 [facility] [place] [phone] [place], Laboratory 226 [facility] [place], [place] [address] 01/25/2025 12:45 PM EST Immunization/Inj ection Hematology/Onco logy Treatment, [place] 200 [facility] [address] 03/04/2025 9:45 AM EDT Imaging Radiology [facility] 1st [facility], [place] [address] [place] [address] 03/04/2025 11:00 AM EDT Imaging Radiology [address], [place] [address] [place] [address] 03/14/2025 11:00 AM EDT Office Visit Hematology/Onco logy [facility] [place] 200 [facility] [place] [address] Marquis Christiansen MD 200 [facility] [place] [address] 04/01/2025 1:00 PM EDT Hospital Encounter ENDO OSSC, Endoscopy Room [facility] [address] [place] [address] Amilcar Duran MD [address] [place] [address] 04/01/2025 1:00 PM EDT - 04/01/2025 1:30 PM EDT Surgery ENDO OSSC, Endoscopy Room OSS [address] [place] [address] Amilcar Duran MD [address] [place] [address] ESOPHAGOGASTRODUODENOSCOPY (EGD), FLEXIBLE, TRANSORAL, DIAGNOSTIC 07/04/2025 2:00 PM EDT Office Visit Cardiology, [facility] [address] [place] [address] Homar Ware PA-C [address] [place] [address] Pending Results Name Type Priority Associated Diagnoses [...] Scheduled Procedures Name Priority Associated Diagnoses Date/Ti al ESOPHAGOGASTRODUODENOSCOPY ( EGD), FLEXIBLE, TRANSORAL, DIAGNOSTIC Gastroesophageal [...] Discussed due to patient's condition Care Teams Merchandise Complaint Adjuster Relationship Specialty Start Date End Date Rowena Banks PA-C PCP - General Physician Meat Department Manager 06/01/22 documented as of this encounter
--- OUTSIDE RECORDS SUMMARY | 2025-04-07 11:48 | External Medical Summary ---
Author Name Unknown Address Unknown Organization [id number]:LAB[facility]ATORY [facility] - [address] [facility] [place] [address] Laboratory Report Ordering Provider Test Date Status DINESH MOBLEY 12/10/2024 08:53:51 Final Observation Date Value Abnormality Reference (Units ) Status BUN 12/10/2024 08:53:51 7 6-20 (mg/dL) Final Creatinine 12/10/2024 08:53:51 1.1 Above high normal 0.5-1.0 (mg/dL) Final Glomerular filtration rate/1.73 sq M.predicted [Volume Rate/Area] in Serum, Plasma or Blood by Creatinine-based formula (CKD-EPI) 12/10/2024 08:53:51 58 Below low normal >=60 (mL/min) Final eGFR is calculated based on the CKD-EPI 2020 equation. Sodium 12/10/2024 08:53:51 141 135-146 (m mol/L) Final Potassium 12/10/2024 08:53:51 3.8 3.5-5.1 (m mol/L) Final Cl 12/10/2024 08:53:51 105 98-107 (mm ol/L) Final CO2 12/10/2024 08:53:51 24 22-32 (mmo l/L) Final Anion gap 12/10/2024 08:53:51 12 7-15 (mmol /L) Final Glucose 12/10/2024 08:53:51 139 Above high normal 70 -120 (mg/dL) Final Albumin 12/10/2024 08:53:51 4.4 3.8-5.0 (g /dL) Final AST (Aspartate aminotransferase) 12/10/2024 08:53:51 23 10-35 (U/L) Fin al Alk Phos 12/10/2024 08:53:51 304 Above high normal 35 -130 (U/L) Final Bilirubin, Total 12/10/2024 08:53:51 0.6 <=1 .2 (mg/dL) Final Calcium 12/10/2024 08:53:51 7.7 Below low normal 8.4 -10.2 (mg/dL) Final Protein 12/10/2024 08:53:51 6.8 6.0-8.3 (g /dL) Final ALT (Alanine aminotransferase) 12/10/2024 08:53:51 11 10-35 (U/L) Charan bridges Performing Location LABORATORY [facility] - [address] [facility] [address]
--- OUTSIDE RECORDS SUMMARY | 2025-04-07 11:48 | External Medical Summary ---
Author Name Unknown Address Unknown Organization K09:LAB[facility]ATORY [facility] [place] [address] Laboratory Report Ordering Provider Test Date Status DINESH MOBLEY 11/30/2024 12:18:16 Final Observation Date Value Abnormality Reference (Units ) Status WBC, Total 11/30/2024 12:18:16 2.82 Below low normal 4. 00-10.80 (K/uL) Final RBC 11/30/2024 12:18:16 2.49 3.85-5.15 (M/uL) Final Hemoglobin 11/30/2024 12:18:16 9.0 Below low normal 12 .0-15.3 (g/dL) Final HCT 11/30/2024 12:18:16 27.1 Below low normal 36. 0-45.2 (%) Final MCV 11/30/2024 12:18:16 108.8 81.5-97.5 (fL) Final MCH 11/30/2024 12:18:16 36.1 27.0-34.0 (pg) Final MCHC 11/30/2024 12:18:16 33.2 32.0-36.0 (g/dL) Final RDW 11/30/2024 12:18:16 14.0 11.5-15.5 (%) Final Platelets 11/30/2024 12:18:16 139 Below low normal 140 -400 (K/uL) Final MPV 11/30/2024 12:18:16 9.7 6.6-11.1 ( fL) Final Performing Location LAB[facility]ATORY [facility] [place] [address]
--- OUTSIDE RECORDS SUMMARY | 2025-04-07 11:48 | External Medical Summary ---
Author Name Unknown Address Unknown Organization K01:LAB[facility]ATORY [facility] - [address] [facility] [place] [address] Laboratory Report Ordering Provider Test Date Status DINESH MOBLEY 12/10/2024 08:53:51 Final Observation Date Value Abnormality Reference (Units ) Status SYNC LEUKOCYTES IN BLOOD BY AUTOMATED COUNT 12/10/2024 08:53:51 3.48 Below low normal 4.00-10.80 (K/uL) Final Segs 12/10/2024 08:53:51 62.7 40.0-75.0 (%) Final Lymphs % 12/10/2024 08:53:51 26.7 18.0-42.0 (%) Final Monos 12/10/2024 08:53:51 6.0 1.0-11.0 (%) Final Eosinophils 12/10/2024 08:53:51 2.3 0.0-6.0 (%) Final Basos 12/10/2024 08:53:51 2.0 0.0-2.0 (%) Final Immature Granulocyte, Percent 12/10/2024 08:53:51 0.3 0.0-2.0 (%) Final Absolute Segs 12/10/2024 08:53:51 2.18 1.80-7.70 (K/uL) Final Lymphs, absolute 12/10/2024 08:53:51 0.93 Below low normal 1.00-4.80 (K/ul) Final Monos, Abs 12/10/2024 08:53:51 0.21 0.00-1.10 (K/uL) Final Eos, Abs 12/10/2024 08:53:51 0.08 0.00-0.70 (K/uL) Final Basos, Abs 12/10/2024 08:53:51 0.07 0.00-0.20 (K/uL) Final Immature Granulocytes, Number 12/10/2024 08:53:51 0.01 0.00-0.20 (K/uL) Final Performing Location LABORATORY [facility] - [facility] [address]. [place] [address]
--- OUTSIDE RECORDS SUMMARY | 2025-04-07 11:48 | External Medical Summary | Summary of Care ---
Author Name Unknown Organization [facility] Address [address] [facility] [place] [address] Phone [phone] Care Team Providers Care Retail And Restaurant Associate Name Role Phone Rowena Banks PA-C Primary Care Provider +1 -[phone] Reason for Visit * Reason Comments Outpatient Testing Encounter Details Date Type Department Care Team (Late st Contact Info) Description 12/10/2024 9:00 AM EST Laboratory Laboratory, [facility] 226 [place] [address] [facility] 226 [place] [address] Diarrhea, unspecified type; History of Clostridioides difficile [...] mouth in the morning. 06/09/20 20 Active DrivableTouch Verio w/Device KitIndications:T ype 2 diabetes mellitus with hemoglobin A1c goal of less than 7.0% (HCC) Use up to twice times a day E11.9 1 Kit 04/15/20 22 Active OneTouch Verio In Vitro Strip (Glucose Blood)Indication s:Type 2 diabetes mellitus with hemoglobin A1c goal of less than 7.0% (HCC) Use up to 2 times a day E11.9 100 Strip 11 04/15/20 22 Active DrivableTouch UltraSoft LancetsIndicatio ns:Type 2 diabetes mellitus with [...] 12/10/2024 11:45 AM EST Office Visit Orthopaedics [facility] [address] [place] [phone] Javed Salas DO [address] [place] [address] 12/11/2024 9:30 AM EST Pharmacy Pharmacy Hematology Oncology [address] [address] [facility], [facility] Clinic Hem/Onc [address] [place] [address] 12/11/2024 9:30 AM EST Office Visit Hematology/Onco logy [facility] 200 [facility] [phone] Carlene Alcantara CRNP 400 [place] [address] 12/11/2024 10:15 AM EST Immunization/Inj ection Hematology/Onco logy Treatment, [place] 200 [facility], [place] [phone] 12/27/2024 8:00 AM EST Laboratory Laboratory, [address] [place] [phone] [facility] [address] [place] [address] 12/28/2024 12:45 PM EST Immunization/Inj ection Hematology/Onco logy Treatment, [place] 200 [facility], [place] [address] Nimo, Chair 2 Hem Onc [facility] 200 [place] [address] 01/24/2025 8:00 AM EST Laboratory Laboratory, [place] [address] 226 [place] [phone] [place], Laboratory 226 [facility] [place], [place] [address] 01/25/2025 12:45 PM EST Immunization/Inj ection Hematology/Onco logy Treatment, [place] 200 [facility] [address] 03/04/2025 9:45 AM EDT Imaging Radiology [facility] 1st [facility], [place] [address] [place] [address] 03/04/2025 11:00 AM EDT Imaging Radiology [address], [place] [address] [place] [address] 03/14/2025 11:00 AM EDT Office Visit Hematology/Onco logy [facility] [place] 200 [place] [address] Marquis Christiansen MD 200 [place] [address] 04/01/2025 1:00 PM EDT Hospital Encounter ENDO OSSC, Endoscopy Room [facility] [address] [place] [address] Amilcar Duran MD [address] [place] [address] 04/01/2025 1:00 PM EDT - 04/01/2025 1:30 PM EDT Surgery ENDO OSSC, Endoscopy Room OSS [address] [place] [address] Amilcar Duran MD [address] [place] [address] ESOPHAGOGASTRODUODENOSCOPY (EGD), FLEXIBLE, TRANSORAL, DIAGNOSTIC 07/04/2025 2:00 PM EDT Office Visit Cardiology, [facility] [address] [place] [address] Homar Ware PA-C [address] [place] [address] Pending Results Name Type Priority Associated Diagnoses [...] Scheduled Procedures Name Priority Associated Diagnoses Date/Ti de ESOPHAGOGASTRODUODENOSCOPY ( EGD), FLEXIBLE, TRANSORAL, DIAGNOSTIC Gastroesophageal [...] due to patient's condition Care Teams Retail And Restaurant Associate Relationship Specialty Start Date End Date Rowena Banks PA-C PCP - General Physician Print Washer 06/01/22 documented as of this encounter
--- OUTSIDE RECORDS SUMMARY | 2025-04-07 11:48 | External Medical Summary ---
Author Name Unknown Address Unknown Organization K09:[place] [address] Laboratory Report Ordering Provider Test Date Status DINESH MOBLEY 11/30/2024 12:18:16 Final Observation Date Value Abnormality Reference (Units ) Status SYNC LEUKOCYTES IN BLOOD BY AUTOMATED COUNT 11/30/2024 12:18:16 2.82 Below low normal 4.00-10.80 (K/uL) Final Segs 11/30/2024 12:18:16 63.2 40.0-75.0 (%) Final Lymphs % 11/30/2024 12:18:16 24.8 18.0-42.0 (%) Final Monos 11/30/2024 12:18:16 7.4 1.0-11.0 (%) Final Eosinophils 11/30/2024 12:18:16 2.5 0.0-6.0 (%) Final Basos 11/30/2024 12:18:16 2.1 Above high normal 0.0-2.0 (%) Final Absolute Segs 11/30/2024 12:18:16 1.78 Below low normal 1.80-7.70 (K/uL) Final Lymphs, absolute 11/30/2024 12:18:16 0.70 Below low normal 1.00-4.80 (K/ul) Final Monos, Abs 11/30/2024 12:18:16 0.21 0.00-1.10 (K/uL) Final Eos, Abs 11/30/2024 12:18:16 0.07 0.00-0.70 (K/uL) Final Basos, Abs 11/30/2024 12:18:16 0.06 0.00-0.20 (K/uL) Final Performing Location [place] [address]
--- OUTSIDE RECORDS SUMMARY | 2025-04-07 11:48 | External Medical Summary | Summary of Care ---
Author Name Unknown Organization [facility] Address [address] [facility] [place] [address] Phone [phone] Care Team Providers Care Ceramic Maker Demonstrator Name Role Phone Rowena Banks PA-C Primary Care Provider +1 [phone] Reason for Visit * Reason Comments Outpatient Testing Encounter Details Date Type Department Care Team (Late st Contact Info) Description 11/30/2024 12:00 PM EST Laboratory Laboratory [place] [address] [place] [phone] [place], Lab Scenery [address] [place] [address] Arrived Allergies Active Allergy Reactions Criticality Noted Date [...] as of this encounter (statuses as of 11/30/2024) Medications COMBIGAN 0.2-0.5 % ophthalmic solution Instill [...] dinner. 120 Capsule 5 10/08/20 24 Active Gabapentin 300 MG Oral Capsule (Neurontin) Take 2 Capsules by mouth at bedtime. 60 Capsule 1 10/08/20 24 Active SITagliptin Phosphate 50 MG [...] Nausea. 30 Tablet 3 10/29/20 24 Active Hospital, Clinic, or Other Facility Administered Medication Ordered Dose Route Frequency Start Date End Date Status albuterol sulfate (PROVENTIL) (2.5 MG/3ML) 0.083% inhalation solution 2.5 mgIndications:Restrictive lung disease,SOB (shortness of breath) 2.5 mg NEBULIZER Q4H PRN 11/07/2017 Act roe documented as of this encounter (statuses as of 11/30/2024) Active Problems Problem Noted Date Diagnosed Date [...] as of this encounter (statuses as of 11/30/2024) Resolved Problems Problem Noted Date Diagnosed Date Resolved Date Prediabetes 06/29/2021 08/13/2022 Overview: Per Prediabetes protocol Left renal artery stenosis 03/21/2018 0 07/13/2018 Restrictive lung disease 11/03/201708/2018 SOB (shortness of breath) 11/03/2017 BMI 45.0-49.9, adult 08/22/2017 02/ 020 Overview: Per Obesity protocol #1 Atypical [...] as of this encounter (statuses as of 11/30/2024) Immunizations Name Administration Dates Next Due COVID-19 [...] Department Care Team (Latest Contact Info) Description 11/30/2024 12:45 PM EST Immunization/Inj ection Hematology/Onco logy Treatment, [address], [place] [phone] Nimo, Chair 2 Hem Onc [address], [place] [address] Arrived 12/03/2024 8:00 AM EST Office Visit Orthopaedics [facility] [address] [place] [address] Javed Salas DO [address] [place] [address] 12/10/2024 9:00 AM EST Laboratory Laboratory, [address] [employer] [place] [phone] [facility] 226 [place] [address] 12/11/2024 9:30 AM EST Pharmacy Pharmacy Hematology Oncology [address] [address] [facility], [facility] Clinic Hem/Onc [address] [place] [address] 12/11/2024 11:45 AM EST Immunization/Inj ection Hematology/Onco logy Treatment, [address] [phone] 12/27/2024 8:00 AM EST Laboratory Laboratory, [address] [employer] [place] [phone] [facility] [address] [employer] [place] [address] 12/28/2024 12:45 PM EST Immunization/Inj ection Hematology/Onco logy Treatment, [place] 200 [facility], [place] [phone] Nimo, Chair 2 Hem Onc [facility] 200 [facility] [place], [place] [address] 01/24/2025 8:00 AM EST Laboratory Laboratory, [facility] 226 [facility] [place] [phone] [facility] 226 [facility] [address] 01/25/2025 12:45 PM EST Immunization/Inj ection Hematology/Onco logy Treatment, [place] 200 [facility], [place] [phone] 03/04/2025 9:45 AM EDT Imaging Radiology [address] 132 [facility] [place] [address] 03/04/2025 11:00 AM EDT Imaging Radiology [address] 132 [facility] [place] [address] 03/14/2025 11:00 AM EDT Office Visit Hematology/Onco logy [facility] [address] [place], [place] [phone] Marquis Christiansen MD [address] [place], [place] [address] 04/01/2025 1:00 PM EDT Hospital Encounter ENDO OSSC, Endoscopy Room [facility] 132 [facility] [place] [phone] Amilcar Duran MD 132 [facility] [place] [address] 04/01/2025 1:00 PM EDT - 04/01/2025 1:30 PM EDT Surgery ENDO O[facility], Endoscopy Room [facility] [address] [place] [phone] Amilcar Duran MD [address] [place] [address] ESOPHAGOGASTRODUODENOSCOPY (EGD), FLEXIBLE, TRANSORAL, DIAGNOSTIC 07/04/2025 2:00 PM EDT Office Visit Cardiology, [facility] [address] [place] [address] Homar Ware PA-C [address] [place] [address] Scheduled Procedures Name Priority Associated Diagnoses Date/Ti [...] Discussed due to patient's condition Care Teams Ceramic Maker Demonstrator Relationship Specialty Start Date End Date Rowena Banks PA-C PCP - General Physician Manager Database Administration 06/01/22 documented as of this encounter
--- OUTSIDE RECORDS SUMMARY | 2025-04-07 11:48 | External Medical Summary | Summary of Care ---
Author Name Unknown Organization [facility] Address [address] [facility] [place] [address] Phone [phone] Care Team Providers Care Customs Collector Name Role Phone Rowena Banks PA-C Primary Care Provider +1 -[phone] Reason for Visit * Reason Comments Medication Administration Xgeva 120mg * Episode Based Medications (Routine) - Authorized Specialty Diagnoses / Procedures Referred By Contdea t Referred To Contact Diagnoses Malignant neoplasm of upper-outer quadrant of left breast in female, estrogen receptor positive (HCC) Procedures [place] DENOSUMAB INJECTION Marquis Christiansen MD [address] [place] [address] [place] [address] Phone: tel: fax: Hematology/Oncology Treatment, [address] [address] Phone: tel: fax: Referral ID Status Reason Start Date Expiration Date V isits Requested Visits Authorized [id number] Authorized 03/16/2024 03/16/2025 [id number] Encounter Details Date Type Department Care Team (Late st Contact Info) Description 11/30/2024 12:45 PM EST Immunization/I njection Hematology/Oncology Treatment, [address] [place] [address] Nimo, Chair 2 Hem Onc [address] [place] [address] Malignant neoplasm of upper-outer quadrant of left [...] E11.9 100 Strip 11 04/15/20 22 Active LydiaTouch UltraSoft LancetsIndicatio ns:Type 2 diabetes mellitus with [...] 12/03/2024 8:00 AM EST Office Visit Orthopaedics [facility] [address] [place] [address] Javed Salas, 132 [place] [address] 12/10/2024 9:00 AM EST Laboratory Laboratory, [address] [place] [address] Mavis Rainey 226 [place] [address] 12/11/2024 9:30 AM EST Pharmacy Pharmacy Hematology Oncology [facility] [place] 100 [address] [facility] [place] [address] [facility] Hem/Onc 100 [place] [facility] [place] [address] 12/11/2024 11:45 AM EST Immunization/Inj ection Hematology/Onco logy Treatment, [address], [place] [phone] 12/27/2024 8:00 AM EST Laboratory Laboratory, [address] [place] [address] Brigid, Laboratory 226 [place] [address] 12/28/2024 12:45 PM EST Immunization/Inj ection Hematology/Onco logy Treatment, [address], [place] [phone] Nimo, Chair 2 Hem Onc [address], [place] [address] 01/24/2025 8:00 AM EST Laboratory Laboratory, [place] [address] [place] [address] [place], Laboratory [address] [place] [address] 01/25/2025 12:45 PM EST Immunization/Inj ection Hematology/Onco logy Treatment, [address], [place] [phone] 03/04/2025 9:45 AM EDT Imaging Radiology [address], [address] [place] [address] 03/04/2025 11:00 AM EDT Imaging Radiology [facility] 1st [facility] [address] [place] [address] 03/14/2025 11:00 AM EDT Office Visit Hematology/Onco logy [facility] [address] [place] [address] Marquis Christiansen MD [address] [place] [address] 04/01/2025 1:00 PM EDT Hospital Encounter ENDO OSSC, Endoscopy Room [facility] [address] [place] [phone] Amilcar Duran MD [address] [place] [address] 04/01/2025 1:00 PM EDT - 04/01/2025 1:30 PM EDT Surgery ENDO OSSC, Endoscopy Room [facility] [address] [place] [address] Amilcar Duran MD [address] [place] [address] ESOPHAGOGASTRODUODENOSCOPY (EGD), FLEXIBLE, TRANSORAL, DIAGNOSTIC 07/04/2025 2:00 PM EDT Office Visit Cardiology, [facility] [address] [place] [address] Homar Ware PA-C [address] [place] [address] Scheduled Procedures Name Priority Associated Diagnoses Date/Ti [...] 10/17/2024, Additional history exists Colonoscopy 02/28/2028 02/27/2018, 07/2018, [...] Discussed due to patient's condition Care Teams Customs Collector Relationship Specialty Start Date End Date Rowena Banks PA-C PCP - General Physician Salvage Worker 06/01/22 documented as of this encounter
--- OUTSIDE RECORDS SUMMARY | 2025-04-07 11:48 | External Medical Summary | Summary of Care ---
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) Procedures ND INJECTION, FULVESTRANT Marquis Christiansen MD [address] [place] [address] [place] [address] Phone: tel: fax: Hematology/Oncology Treatment, [address] [address] Phone: tel: fax: Referral ID Status Reason Start Date Expiration Date V isits Requested Visits Authorized [id number] Authorized 03/15/2024 11/20/2099 [id number] Encounter Details Date Type Department Care Team (Late st Contact Info) Description 11/13/2024 11:45 AM EST Immunization/I njection Hematology/Oncology Treatment, [address] [place] [address] Nimo, Chair 5 Hem Onc [address] [place] [address] Carcinoma of left breast metastatic to axillary [...] as of this encounter (statuses as of 11/29/2024) Medications COMBIGAN 0.2-0.5 % ophthalmic solution Instill [...] morning. 90 Tablet 3 12/12/19 24 Active oxyCODONE-Acetam inophen 5-325 MG Oral [...] Additional Information Patient not taking.Reported on 10/11/2024 Prochlorperazine Maleate 10 MG Oral Tablet (Compazine)Indic [...] as of this encounter (statuses as of 11/29/2024) Active Problems Problem Noted Date Diagnosed Date [...] as of this encounter (statuses as of 11/29/2024) Resolved Problems Problem Noted Date Diagnosed Date [...] as of this encounter (statuses as of 11/29/2024) Immunizations Name Administration Dates Next Due COVID-19 [...] Progress Notes * Elizabeth Denise LPN - 11/13/2024 11:46 AM EST Patient arrived for Vitamin B-12 and Faslodex injections. Vitamin B 12 administered in DOMINIQUE, patient tolerated well, denied any complaints. Administered Faslodex in bilateral dorsogluteal. Patient tolerated injections well denied any complaints. Patient stable at discharge. documented in this encounter Plan of Treatment Upcoming Encounters Date Type Department Care Team (Latest Contact Info) Description 11/30/2024 12:45 PM EST Immunization/Inj ection Hematology/Onco logy Treatment, [place] [address] [facility] [phone] Nimo, Chair 2 Hem Onc [facility] [address] 12/03/2024 8:00 AM EST Office Visit Orthopaedics [facility] [address] [place] [address] Javed Salas, [address] [place] [address] 12/10/2024 9:00 AM EST Laboratory Laboratory, [place] [facility] [address] [facility] [place] [address] Brigid, Laboratory [address] [place] [address] 12/11/2024 9:30 AM EST Pharmacy Pharmacy Hematology Oncology [facility] [address] [place] [address] [facility], [facility] Hem/Onc [address] [place] [address] 12/11/2024 11:45 AM EST Immunization/Inj ection Hematology/Onco logy Treatment, [place] 200 [place] [address] 03/04/2025 9:45 AM EDT Imaging Radiology [facility] 1st [facility], [place] [facility] [place] [address] 03/04/2025 11:00 AM EDT Imaging Radiology [address], [place] 132 [facility] [place] [address] 03/14/2025 11:00 AM EDT Office Visit Hematology/Onco logy [facility] 200 [facility] [place] [phone] Marquis Christiansen MD [address] [facility] [address] 04/01/2025 1:00 PM EDT Hospital Encounter ENDO OSSC, Endoscopy Room OSS [address] [place] [phone] Amilcar Duran MD 132 [facility] [place] [address] 04/01/2025 1:00 PM EDT - 04/01/2025 1:30 PM EDT Surgery ENDO OSSC, Endoscopy Room [facility] [address] [place] [phone] Amilcar Duran MD [address] [place] [address] ESOPHAGOGASTRODUODENOSCOPY (EGD), FLEXIBLE, TRANSORAL, DIAGNOSTIC 07/04/2025 2:00 PM EDT Office Visit Cardiology, [facility] [address] [place] [address] Homar Ware PA-C [address] [place] [address] Scheduled Procedures Name Priority Associated Diagnoses Date/Ti [...] 500 mg 500 mg, Intramuscular, ONCE, On Tue11/13/24 at 1215, For 1 doseIndications:Carcino ma of left breast metastatic to axillary lymph node (HCC) Given 11/13/2024 11:32 AM EST 500 mg Dorsogluteal Left Vitamin B-12 (Cyanocobalamin) inj 1,000 mcg 1,000 mcg, Intramuscular, ONCE, On Tue11/13/24 at 1215, For 1 doseIndications:B12 deficiency Given 11/13/2024 11:27 AM EST 1,000 mcg Arm Right Upper [...] Discussed due to patient's condition Care Teams Flow Floor Attendant Relationship Specialty Start Date End Date Rowena Banks PA-C PCP - General Physician Binding Stitcher 06/01/22 documented as of this encounter
--- OUTSIDE RECORDS SUMMARY | 2025-04-07 11:49 | External Medical Summary ---
Author Name Unknown Address Unknown Organization K01:[place] [facility] [address] [facility] [place] [address] Laboratory Report Ordering Provider Test Date Status DINESH MOBLEY 11/29/2024 08:17:25 Final Observation Date Value Abnormality Reference (Units ) Status BUN 11/29/2024 08:17:25 13 6-20 (mg/dL) Final Creatinine 11/29/2024 08:17:25 1.1 Above high normal 0.5-1.0 (mg/dL) Final Glomerular filtration rate/1.73 sq M.predicted [Volume Rate/Area] in Serum, Plasma or Blood by Creatinine-based formula (CKD-EPI) 11/29/2024 08:17:25 57 Below low normal >=60 (mL/min) Final eGFR is calculated based on the CKD-EPI 2020 equation. Sodium 11/29/2024 08:17:25 142 135-146 (m mol/L) Final Potassium 11/29/2024 08:17:25 3.8 3.5-5.1 (m mol/L) Final Cl 11/29/2024 08:17:25 107 98-107 (mm ol/L) Final CO2 11/29/2024 08:17:25 22 22-32 (mmo l/L) Final Anion gap 11/29/2024 08:17:25 13 7-15 (mmol /L) Final Glucose 11/29/2024 08:17:25 139 Above high normal 70 -120 (mg/dL) Final Albumin 11/29/2024 08:17:25 4.2 3.8-5.0 (g /dL) Final AST (Aspartate aminotransferase) 11/29/2024 08:17:25 20 10-35 (U/L) Fin al Results may be falsely eleva hillary due to hemolysis. Alk Phos 11/29/2024 08:17:25 320 Above high normal 35 -130 (U/L) Final Bilirubin, Total 11/29/2024 08:17:25 0.5 <=1 .2 (mg/dL) Final Calcium 11/29/2024 08:17:25 9.0 8.4-10.2 ( mg/dL) Final Protein 11/29/2024 08:17:25 6.8 6.0-8.3 (g /dL) Final ALT (Alanine aminotransferase) 11/29/2024 08:17:25 6 Below low normal 10-35 (U/L) Final Performing Location [place] [facility] [place] [address] [facility] [address]
--- OUTSIDE RECORDS SUMMARY | 2025-04-07 11:49 | External Medical Summary | Summary of Care ---
Author Name Unknown Organization [facility] Address [address] [facility] [place] [address] Phone [phone] Care Team Providers Care Aircraft Pneudraulics Repairer Name Role Phone Rowena Banks PA-C Primary Care Provider [phone] [phone] Reason for Visit * Reason Comments Outpatient Testing Encounter Details Date Type Department Care Team (Late st Contact Info) Description 11/29/2024 8:00 AM EST Laboratory Laboratory, [facility] 226 [place] [address] [facility] 226 [place], [place] [phone] Malignant neoplasm of upper-outer quadrant of left [...] mouth in the morning. 06/09/20 20 Active ParStreamTouch Verio w/Device KitIndications:T ype 2 diabetes mellitus [...] PM EST Immunization/Inj ection Hematology/Onco logy Treatment, [address] [phone] Nimo, Chair 2 Hem Onc [address] [address] 12/03/2024 8:00 AM EST Office Visit Orthopaedics [facility] [address] [place] [address] Javed Salas, [address] [facility] [place] [address] 12/10/2024 9:00 AM EST Laboratory Laboratory, Brigid Peña 226 [facility] [place] [phone] Brigid Laboratory 226 [facility] [address] 12/11/2024 9:30 AM EST Pharmacy Pharmacy Hematology Oncology [facility] [address] [place] [address] [facility] Hem/Onc [address] [place] [address] 12/11/2024 11:45 AM EST Immunization/Inj ection Hematology/Onco logy Treatment, [address] [phone] 03/04/2025 9:45 AM EDT Imaging Radiology [address] [place] [address] 03/04/2025 11:00 AM EDT Imaging Radiology [facility] 1st [facility] [address] [place] [address] 03/14/2025 11:00 AM EDT Office Visit Hematology/Onco logy [facility] [address] [place] [phone] Marquis Christiansen MD [address] [place] [address] 04/01/2025 1:00 PM EDT Hospital Encounter ENDO OSSC, Endoscopy Room [facility] [address] [place] [phone] Amilcar Duran MD [address] [place] [address] 04/01/2025 1:00 PM EDT - 04/01/2025 1:30 PM EDT Surgery ENDO OSSC, Endoscopy Room [facility] [address] [place] [phone] Amilcar Duran MD [address] [place] [address] ESOPHAGOGASTRODUODENOSCOPY (EGD), FLEXIBLE, TRANSORAL, DIAGNOSTIC 07/04/2025 2:00 PM EDT Office Visit Cardiology, [facility] [address] [place] [address] Homar Ware PA-C [address] [place] [address] Pending Results Name Type Priority Associated Diagnoses Date /Time CBC WITH WBC DIFFERENTIAL Lab STAT Malignant neoplasm of upper-outer quadrant of left breast in female, estrogen receptor positive (HCC) 11/29/2024 8:17 AM EST COMPREHENSIVE METABOLIC PANEL Lab STAT Malignant neoplasm of upper-outer quadrant of left breast in female, estrogen receptor positive (HCC) 11/29/2024 8:17 AM EST PHOSPHORUS Lab STAT Malignant neoplasm of upper-outer quadrant of left breast in female, estrogen receptor positive (HCC) 11/29/2024 8:17 AM EST CBC Lab STAT Malignant neoplasm of upper-outer quadrant of left breast in female, estrogen receptor positive (HCC) 11/29/2024 8:17 AM EST DIFFERENTIAL, AUTOMATED Lab STAT Malignant neoplasm of upper-outer quadrant of left breast in female, estrogen receptor positive (HCC) 11/29/2024 8:17 AM EST Scheduled Procedures Name Priority Associated [...] Additional history exists Depression Monitoring 08/20/2025 08/20/2024 GFR 11/12/2025 11/12/2024, 09/22, 09/19/2024, Additional history exists Diabetic Eye Exam 11/21/2025 08/12/2016, 04/17/2013 Postponed from 08/12/2017 (Patient Declined After Education) Colonoscopy 02/28/2028 02/27/2018, 04/0 07/2018, 03/21/2012, Additional [...] Discussed due to patient's condition Care Teams Aircraft Pneudraulics Repairer Relationship Specialty Start Date End Date Rowena Banks PA-C PCP - General Physician Chemistry Tutor 06/01/22 documented as of this encounter
--- OUTSIDE RECORDS SUMMARY | 2025-04-07 11:49 | External Medical Summary ---
Author Name Unknown Address Unknown Organization K01:LABORATORY [facility] [place] - 100 [facility] [address] Laboratory Report Ordering Provider Test Date Status BOBBY,11/20/2024 10:34:27 Final Observation Date Value Abnormality Reference (Units ) Status SARS Coronavirus 2 11/20/2024 10:34:27 Negative N egative Final No SARS-CoV2 Coronavirus RNA detected by PCR (amplified probe).
This express test was developed and its performance characteristics determined by [facility]. It has not been cleared or approved by the U.S. Food and Drug Administration (FDA). FDA does not require this test to go thru premarket FDA review. This test is used for clinical purposes. It should not be regarded as investigational or for research. This laboratory is certified under the Clinical Laboratory Improvement Amendments (CLIA) as qualified to perform high complexity clinical laboratory testing.

This test is a nucleic acid amplification test (NAAT), a reverse transcriptase polymerase chain reaction (RT-PCR) test, or a Centers for Disease Control-acceptable equivalent. The test is performed in a high complexity Clinical Laboratory Improvement Amendments-(CLIA) certified laboratory. The test is acceptable for SARS-CoV-2 diagnosis, surveillance, and travel within the [place] and to most countries. Please check with local testing authorities about requirements before travel.

The validation of bronchial specimens, tracheal aspirates, and sputum for this assay was developed and performance characteristics determined by [facility]. The validation of alternate specimen types has not been cleared or approved by the U.S. Food and Drug Administration (FDA). It has been determined that such clearance is not necessary. Influenza virus A RNA [Prese nce] in Specimen by AJ with probe detection 11/20/2024 10:34:27 Negative Negative Final No Influenza A RNA detected by PCR (amplified probe) Influenza virus B RNA [Prese nce] in Specimen by AJ with probe detection 11/20/2024 10:34:27 Negative Negative Final No Influenza B RNA detected by PCR (amplified probe) Respiratory syncytial virus RNA [Identifier] in Specimen by AJ with probe detection 11/20/2024 10:34:27 Negative Negative Final No Respiratory Syncytial Vir us RNA detected by PCR (amplified probe) Performing Location LABORATORY [address] [place] Benitez[address] [facility] [address]
--- OUTSIDE RECORDS SUMMARY | 2025-04-07 11:49 | External Medical Summary | Summary of Care ---
Author Name Unknown Organization [facility] Address [address] [facility] [place] [address] Phone [phone] Care Team Providers Care Printed Products Assembler Name Role Phone Rowena Banks PA-C Primary Care Provider [phone] [phone] Encounter Details Date Type Department Care Team (Late st Contact Info) Description 11/28/2024 Orders Only Hematology/Oncology [facility] [place] [address] [place] [phone] Marquis Christiansen MD [address] [place] [address] Allergies Active Allergy Reactions Criticality Noted Date [...] as of this encounter (statuses as of 11/28/2024) Medications COMBIGAN 0.2-0.5 % ophthalmic solution Instill [...] as of this encounter (statuses as of 11/28/2024) Active Problems Problem Noted Date Diagnosed Date [...] as of this encounter (statuses as of 11/28/2024) Resolved Problems Problem Noted Date Diagnosed Date [...] as of this encounter (statuses as of 11/28/2024) Immunizations Name Administration Dates Next Due COVID-19 [...] Department Care Team (Latest Contact Info) Description 11/29/2024 8:00 AM EST Laboratory Laboratory, [address] [place] [phone] Brigid [facility] 226 [place] [address] 11/30/2024 12:45 PM EST Immunization/Inj ection Hematology/Onco logy Treatment, [address] [place] [address] Nimo Chair 2 Hem Onc [address], [place] [address] 12/03/2024 8:00 AM EST Office Visit Orthopaedics [facility] [address] [facility] [place] [address] Javed Salas, [address] [place] [address] 12/10/2024 9:00 AM EST Laboratory Laboratory, [address] [place] [phone] Brigid Laboratory 226 [place] [address] 12/11/2024 9:30 AM EST Pharmacy Pharmacy Hematology Oncology [facility] [address] [place] [address] [facility], [facility] Hem[facility]Onc [address] [facility] [address] 12/11/2024 11:45 AM EST Immunization/Inj ection Hematology/Onco logy Treatment, [address], [place] [address] 03/04/2025 9:45 AM EDT Imaging Radiology [facility] 1st [facility] [address] [place] [address] 03/04/2025 11:00 AM EDT Imaging Radiology [address], [place] [address] [place] [address] 03/14/2025 11:00 AM EDT Office Visit Hematology/Onco logy Patrick Suero [place] [address] [place] [phone] Marquis Christiansen MD 200 [facility] [place] [address] 04/01/2025 1:00 PM EDT Hospital Encounter ENDO OSSC, Endoscopy Room [facility] [address] [place], [place] [phone] Amilcar Duran MD [address] [place] [address] 04/01/2025 1:00 PM EDT - 04/01/2025 1:30 PM EDT Surgery ENDO OSSC, Endoscopy Room [facility] [address] [place], [place] [phone] Amilcar Duran MD [address] [place] [address] ESOPHAGOGASTRODUODENOSCOPY (EGD), FLEXIBLE, TRANSORAL, DIAGNOSTIC 04/17/2025 10:30 AM EDT Office Visit Gastroenterolog y, [facility] [address] [place] [address] Rosendo Alcantara CRNP [address] [place] [address] 07/04/2025 2:00 PM EDT Office Visit Cardiology, Health system [address] [place] [address] Homar Ware PA-C [address] [place] [address] Scheduled Procedures Name Priority Associated Diagnoses Date/Ti [...] (Patient Declined After Education) Colonoscopy 02/28/2028 02/27/2018, 040 07/2018, 03/21/2012, Additional [...] Discussed due to patient's condition Care Teams Printed Products Assembler Relationship Specialty Start Date End Date Rowena Banks PA-C PCP - General Physician Auto Finance Sales Rep 06/01/22 documented as of this encounter
--- OUTSIDE RECORDS SUMMARY | 2025-04-07 11:49 | External Medical Summary | Summary of Care ---
Author Name Unknown Organization [facility] Address [address] [facility] [place] [address] Phone [phone] Care Team Providers Care Histologist Name Role Phone Rowena Banks PA-C Primary Care Provider +1 -[phone] Reason for Visit * Reason Comments Outpatient Testing Encounter Details Date Type Department Care Team (Late st Contact Info) Description 11/29/2024 8:00 AM EST Laboratory Laboratory, [facility] 226 [place] [address] [facility] 226 [place], [place] [phone] Malignant neoplasm of upper-outer quadrant of left [...] mouth in the morning. 06/09/20 20 Active ComparioTouch Verio w/Device KitIndications:T ype 2 diabetes mellitus [...] PM EST Immunization/Inj ection Hematology/Onco logy Treatment, [address] [phone] Nimo, Chair 2 Hem Onc [address] [address] 12/03/2024 8:00 AM EST Office Visit Orthopaedics [facility] [address] [place] [address] Javed Salas, [address] [facility] [place] [address] 12/10/2024 9:00 AM EST Laboratory Laboratory, Brigid Peña 226 [facility] [place] [phone] Brigid Laboratory 226 [facility] [address] 12/11/2024 9:30 AM EST Pharmacy Pharmacy Hematology Oncology [facility] [address] [place] [address] [facility], [facility] Hem/Onc [address] [place] [address] 12/11/2024 11:45 AM EST Immunization/Inj ection Hematology/Onco logy Treatment, [address] [phone] 03/04/2025 9:45 AM EDT Imaging Radiology [address] [place] [address] 03/04/2025 11:00 AM EDT Imaging Radiology [facility] 1st [facility] [address] [place] [address] 03/14/2025 11:00 AM EDT Office Visit Hematology/Onco logy [facility] [address] [place] [phone] Marquis Christiansen MD [address] [place] [address] 04/01/2025 1:00 PM EDT Hospital Encounter ENDO OSSC, Endoscopy Room [facility] [address] [place] [phone] Amilcar Duran MD [address] [place] [address] 04/01/2025 1:00 PM EDT - 04/01/2025 1:30 PM EDT Surgery ENDO OSSC, Endoscopy Room [facility] [address] [place] [phone] Amilcar Duran MD [address] [place] [address] ESOPHAGOGASTRODUODENOSCOPY (EGD), FLEXIBLE, TRANSORAL, DIAGNOSTIC 07/04/2025 2:00 PM EDT Office Visit Cardiology, [facility] [address] [place] [address] Homar Ware PA-C [address] [place] [address] Scheduled Orders Name Type Priority Associated Diagnoses Orde r Schedule CBC Lab STAT Malignant neoplasm of upper-outer quadrant of left breast in female, estrogen receptor positive (HCC) Ordered: 11/29/2024 DIFFERENTIAL, AUTOMATED Lab STAT Malignant neoplasm of upper-outer quadrant of left breast in female, estrogen receptor positive (HCC) Ordered: 11/29/2024 Scheduled Procedures Name Priority Associated Diagnoses Date/Ti [...] Procedure Name Priority Date/Time Associated Diagnosis Comments COMPREHENSIVE METABOLIC PANEL STAT 11/29/2024 8:17 AM EST Malignant neoplasm of upper-outer quadrant of left breast in female, estrogen receptor positive (HCC) PHOSPHORUS STAT 11/29/2024 8:17 AM EST Malignant neoplasm of upper-outer quadrant of left breast in female, estrogen receptor positive (HCC) documented in this encounter Results * PHOSPHORUS (11/29/2024 8:17 AM EST) Phosphorus 3.4 2.5 - 4.8 mg/dL 11/29/2024 2:48 PM EST LAB[facility]ATORY [facility] [place] Blood Venous blood specimen / Unknown Venipuncture / Unknown 11/29/2024 8:17 AM EST 11/29/2024 8:17 AM EST Marquis Christiansen MD LAB BLOOD ORDERABLES Final Res ult [facility]ATORY [facility] [address] [place] [address] * (ABNORMAL) COMPREHENSIVE METABOLIC PANEL (11/29/2024 8:17 AM EST) BUN 13 6 - 20 mg/dL 11/29/2024 2:48 PM EST LAB[facility]ORY [facility] CREATININE 1.1(H) 0.5 - 1.0 mg/dL 11/29/2024 2:48 PM EST [facility] EGFR 57(L) >=60 mL/min 11/29/2024 2:48 PM EST LAB[facility]ORY [facility] Comment:eGFR is calculated b ased on the CKD-EPI 2020 equation. SODIUM 142 135 - 146 mmol/L 11/29/2024 2:48 PM EST [facility] POTASSIUM 3.8 3.5 - 5.1 mmol/L 11/29/2024 2:48 PM EST [facility] CHLORIDE 107 98 - 107 mmol/L 11/29/2024 2:48 PM EST [facility] CO2 22 22 - 32 mmol/L 11/29/2024 2:48 PM EST [facility] ANION GAP 13 7 - 15 mmol/L 11/29/2024 2:48 PM EST [facility] GLUCOSE 139(H) 70 - 120 mg/dL 11/29/2024 2:48 PM EST [facility] Albumin 4.2 3.8 - 5.0 g/dL 11/29/2024 2:48 PM EST [facility] AST 20 10 - 35 U/L 11/29/2024 2:48 PM EST LAB[facility] Comment:Results may be false ly elevated due to hemolysis. Alkaline Phosphatase 320(H) 35 - 130 U/L 11/29/2024 2:48 PM EST [facility] Bilirubin, Total 0.5 <=1.2 mg/dL 11/29/2024 2:48 PM EST [facility] CALCIUM 9.0 8.4 - 10.2 mg/dL 11/29/2024 2:48 PM EST [facility] Protein 6.8 6.0 - 8.3 g/dL 11/29/2024 2:48 PM EST [facility] ALT 6(L) 10 - 35 U/L 11/29/2024 2:48 PM EST [facility] Blood Venous blood specimen / Unknown Venipuncture / Unknown 11/29/2024 8:17 AM EST 11/29/2024 8:17 AM EST us Marquis Christiansen MD LAB BLOOD ORDERABLES Final Res ult LAB[facility]ATORY [facility] [address] [place] [address] documented in this encounter Visit Diagnoses [...] Discussed due to patient's condition Care Teams Histologist Relationship Specialty Start Date End Date Rowena Banks PA-C PCP - General Physician Purchasing Specialist 06/01/22 documented as of this encounter
--- OUTSIDE RECORDS SUMMARY | 2025-04-07 11:49 | External Medical Summary ---
Author Name Unknown Address Unknown Organization K01:[place]ORY [facility] [place] [address] [place] [address] Laboratory Report Ordering Provider Test Date Status DINESH MOBLEY 11/20/2024 10:55:03 Final We have contact [facility] to send specimen to [facility] Observation Date Value Abnormality Reference (Units ) Status COMMENT 11/20/2024 10:55:03 Testing to be performed in house Final COMMENT 11/20/2024 10:55:03 Final COMMENT 11/20/2024 10:55:03 Final COMMENT 11/20/2024 10:55:03 Final COMMENT 11/20/2024 10:55:03 Final COMMENT 11/20/2024 10:55:03 Final Performing Location LAB[facility]ORY [facility] [place] [address] [place] [address]
--- OUTSIDE RECORDS SUMMARY | 2025-04-07 11:49 | External Medical Summary | Summary of Care ---
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) Procedures NC INJECTION, FULVESTRANT Marquis Christiansen MD [address] [place] [address] [place] [address] Phone: tel: fax: Hematology/Oncology Treatment, [address] [address] Phone: tel: fax: Referral ID Status Reason Start Date Expiration Date V isits Requested Visits Authorized [id number] Authorized 03/15/2024 11/20/2099 [id number] Encounter Details Date Type Department Care Team (Late st Contact Info) Description 11/13/2024 11:45 AM EST Immunization/I njection Hematology/Oncology Treatment, [address] [place] [address] Nimo, Chair [address] Hem On[address] [place] [address] Carcinoma of left breast metastatic to axillary [...] Description 11/29/2024 8:00 AM EST [place], [place] [address] [facility] [place] [address] [facility] [address] [facility] [place] [address] 11/30/2024 12:45 PM EST Immunization/Inj ection Hematology/Onco logy Treatment, [place] [address] [place] [address] Nimo, Chair 2 Hem Onc Scenery [address] [place] [address] 12/03/2024 8:00 AM EST Office Visit Orthopaedics [facility] [address] [facility] [place] [address] Javed Salas DO [address] [place] [address] 12/10/2024 9:00 AM EST Laboratory [facility], [place] [facility] [place] [phone] [facility] [address] 12/11/2024 9:30 AM EST Pharmacy Pharmacy Hematology Oncology [place] [address] [place] [address] [facility], [facility] Hem/Onc [address] [place] [address] 12/11/2024 11:45 AM EST Immunization/Inj ection Hematology/Onco logy Treatment, [place] [address] [place] [phone] 03/04/2025 9:45 AM EDT Imaging Radiology [address] [facility] [place] [address] 03/04/2025 11:00 AM EDT Imaging Radiology [address] [facility] [place] [address] 03/14/2025 11:00 AM EDT Office Visit Hematology/Onco logy [facility] [address] [place] [phone] Marquis Christiansen MD [address] [place] [address] 04/01/2025 1:00 PM EDT Hospital Encounter ENDO [facility], Endoscopy Room [facility] [address] [place] [address] Amilcar Duran MD [address] [place] [address] 04/01/2025 1:00 PM EDT - 04/01/2025 1:30 PM EDT Surgery ENDO [facility], Endoscopy Room [facility] [address] [place] [address] Amilcar Duran MD [address] [place] [address] ESOPHAGOGASTRODUODENOSCOPY (EGD), FLEXIBLE, TRANSORAL, DIAGNOSTIC 07/04/2025 2:00 PM EDT Office Visit Cardiology, [facility] [address] [place] [address] Homar Ware PA-C [address] [place] [address] Scheduled Procedures Name Priority Associated Diagnoses Date/Ti [...] 1,000 mcg 1,000 mcg, Intramuscular, ONCE, On Tu11/13/24 at 1215, For 1 doseIndications:B12 deficiency Given [...] 08/30/2023 8:07 AM 08/30/2023 12:53 PM This ord er reflects the patients wishes and were consensually agreed upon. Question Answer Comments Discussion of [employer] cash occurred with: Not Discussed due to patient's condition Care Teams Chlorinator Relationship Specialty Start Date End Date Rowena Banks PA-C PCP - General Physician Endoscopy Registered Nurse 06/01/22 documented as of this encounter
--- OUTSIDE RECORDS SUMMARY | 2025-04-07 11:49 | External Medical Summary | Summary of Care ---
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) Metastasis to bone (HCC) Procedures PET CT SKULL BASE TO MID-THIGH FDG Marquis Christiansen MD [address] [place] [address] Phone: tel: fax: Referral ID Status Reason Start Date Expiration Date V isits Requested Visits Authorized [id number] Pending Review 11/13/2024 [id number] Reason for Visit * Reason Comments Follow Up Appointment PET review Encounter Details Date Type Department Care Team (Late st Contact Info) Description 11/13/2024 11:15 AM EST Office Visit Hematology/Oncology [facility] Negre[facility] [address] [place] [address] Marquis Christiansen MD [address] [place] [address] [address] Malignant neoplasm of upper-outer quadrant of left [...] as of this encounter (statuses as of 11/13/2024) Medications COMBIGAN 0.2-0.5 % ophthalmic solution Instill [...] (1 tablet) before bedtime. 60 Tablet 5 10/23/2024 3:01 PM EST 08/27/20 24 Active Gabapentin 100 [...] as of this encounter (statuses as of 11/13/2024) Active Problems Problem Noted Date Diagnosed Date [...] as of this encounter (statuses as of 11/13/2024) Resolved Problems Problem Noted Date Diagnosed Date [...] as of this encounter (statuses as of 11/13/2024) Immunizations Name Administration Dates Next Due COVID-19 [...] Sign Reading Time Taken Comments Blood Pressure 136/76 11/13/2024 11:03 AM EST Pulse 76 11/13/2024 11:03 AM EST Temperature 36.4 °C (97.6 °F) 11/13/2024 11:[address] Respiratory Rate - - Oxygen Saturation 90% 11/13/2024 11:03 AM EST Inhaled Oxygen Concentration - - Weight 107 kg (236 lb) 11/13/2024 11:03 AM EST Height - - Body Mass Index 40.51 01/20/2024 2:59 PM EST documented in this encounter Progress Notes * Marquis Christiansen MD - 11/13/2024 11:15 AM EST Hematology/Oncology Outpatient Clinic note [address] [place], [place] [address] Name: Sarah Burgos Date: 08/22/2023 CHIEF COMPLAINT: Sarah Burgos is a 68 year old female here today for f/u visit today. HEMATOLOGY/ONCOLOGY DIAGNOSIS: Left breast cancer, invasive carcinoma no special type, high grade, ER positive (moderate) in 60% malignant cells, SD weakly positive in 30% of malignamt cells, Her2/Vance--> negative by FISH Imaging study showed 8 x 8 x 10 mm tumor -left axillary lymph yung enlargement, biopsy from that confirmed metastatic breast cancer ultrasound measuring 1.6 x 0.8 x 0.7 cm. Genetic Clinic evaluation (08/2020) --> negative for known 20 mutations. Left upper extremity lymphedema.(Mild) - multiple bone metastasis (01/2024) - ER weekly positive in 50% of malignant cells, SD moderately positive in 50 % malignant cells, her2/vance--> Negative.- PD-L1 less than 1%. DATE OF DIAGNOSIS: 10/31/19 TREATMENT HISTORY: -She completed neoadjuvant dose dense AC followed by weekly Paclitaxel between 12/25/2019-05/22/2020. She underwent bilateral mastectomies, left axillary lymph node dissection by Dr. Sarah on 07/07/2020: Final pathology: -right mastectomy showed benign findings -left mastectomy showed residual invasive ductal carcinoma measuring 6 mm, -left axillary lymph yung dissection showed 4/10 lymph node positive for metastatic disease, largest metastatic focus measuring less than 1 mm, extranodal extension noted. Genetic Clinic evaluation (08/2020) --> negative for known 20 mutations. -She completed adjuvant radiation treatment in October 2020 at [facility]. - - anastrozole 1 mg once a day. ( since May 2020- 10/2022) - Exemestane 25 mg once a day ( mid- October 2022-02/2024) . Discontinued because of disease progression, now diagnosed with stage IV breast cancer with bone metastasis in 01/2024. CURRENT TREATMENT: - Faslodex and Abemaciclib combination.( 03/28/2024--) She is on Abemacilcib at 100 mg twice a day. - Xgeva every 4 weekly (03/22/2024--) DIAGNOSTIC WORKUP: She felt small lump in [...] carcinoma. -ER moderately positive in 60% cells, SD weakly positive in 30% malignamt cells -Her2/Vance [...] asthma -Hyperlipidemia -nonspecific neuromuscular symptoms, seen by matrix supervisor few years back, she says that she is positive for HLA B27 (November 2018) -Irritable bowel syndrome. -abdominal hernia surgery in the past -diverticulosis -discontinue smoking habit many years back, she smoked from age of 16 to 33. HISTORY OF PRESENT ILLNESS: She has come the clinic for the follow-up, accompanied by her daughter in the office. Presently she is on Faslodex and Abemaciclib, overall tolerated well, earlier she had some mild diarrhea which has improved, previously noted left shoulder pain has improved, currently she is not on any pain medication on regular basis, She says that she is on Xgeva every monthly, recently she broke her 1 of the tooth, now she had dental extraction, excisional hold, planning to resume in November 2024. She takes vitamin-D and Calcium supplementation on regular basis. Current weight around 236 lb. Past Medical History: Diagnosis Date CODIE inhibitor [...] DIAGNOSTIC performed by SHANTELL BRICE at ENDOSCOPY [facility] COLONOSCOPY, DIAGNOSTIC (RECTUM) 02/27/2018 normal, repeat 10 yrs/COLONOSCOPY FLEXIBLE PROXIMAL DIAGNOSTIC performed by Amilcar Duran MD at ENDOSCOPY [facility] EGD, FLEXIBLE, DIAGNOSTIC 01/24/2014 ESOPHAGOGASTRODUODENOSCOPY (EGD), FLEXIBLE, TRANSORAL, DIAGNOSTIC performed by Shantell Brice DO at ENDOSCOPY [facility] EGD, FLEXIBLE, DIAGNOSTIC 11/07/2014 mild-mod inflammation/ESOPHAGOGASTRODUODENOSCOPY (EGD), FLEXIBLE, TRANSORAL, DIAGNOSTIC performed by Amilcar Duran MD at ENDOSCOPY [facility] EGD, FLEXIBLE, DIAGNOSTIC 07/25/2019 acid reflux / [facility] GRAFT RIB CARTILAGE TO FACE/EAR/NOS N/A 08/12/2016 GRAFT RIB CARTILAGE TO FACE performed by Shea Alxeandra MD at OR [facility] INFORMATION 1996 lap HH repair INFORMATION 1997 emergency ulcer surgery INFORMATION 2000 10 hernia repairs with mesh INFORMATION 1976 ovarian cysts removed INFORMATION 1996 incidental cholecystectomy INFORMATION age 25 repair broken nose and R cheek bone IR BIOPSY 03/07/2024 L-/S-SPINE PARAVERTEBRAL FACET INJ,1 LEVEL 08/17/2023 L-/S-SPINE PARAVERTEBRAL FACET INJ, 1 LEVEL performed by Facundo Benitez DO at OR [facility] L-/S-SPINE PARAVERTEBRAL FACET INJ,1 LEVEL 10/19/2023 L-/S-SPINE PARAVERTEBRAL FACET INJ, 1 LEVEL performed by Facundo Benitez DO at OR [facility] PFT B/A 10/2014 normal RECONSTRUCTION OF NOSE/SEPTUM N/A 08/12/2016 RHINOPLASTY COMPLETE INCLUDING MAJOR SEPTAL REPAIR performed by Shea Alexandra MD at OR [facility] REMOVAL OF APPENDIX Appendectomy REMOVE TONSILS & ADENOIDS, AGE 12+ 1981 Tonsillectomy/Adenoids,12+ Y/O SACROILIAC JOINT INJECT W/GUIDANCE 09/25/2018 INJECTION SACROILIAC JOINT performed by Facundo Benitez DO at OR [facility] SACROILIAC JOINT INJECT W/GUIDANCE 06/04/2019 INJECTION SACROILIAC JOINT performed by Facundo Benitez DO at OR [facility] SACROILIAC JOINT INJECT W/GUIDANCE 12/08/2022 INJECTION SACROILIAC JOINT performed by Facundo Benitez DO at OR [facility] SKIN TISSUE REARRANGEMENT Bilateral 08/30/2023 SKIN TISSUE REARRANGEMENT performed by Kody Perez MD at OR [facility] SKIN TISSUE REARRANGEMENT, ADD-ON Bilateral 08/30/2023 SKIN TISSUE REARRANGEMENT, ADD-ON performed by Kody Perez MD at OR [facility] THERAPEUTIC FRACTURE OF NOSE Bilateral 08/12/2016 FRACTURE OF NASAL TURBINATES THERAPEUTIC performed by Shea Alexandra MD at OR [facility] TOTAL ABD HYSTERECTOMY W/WO REMOVAL OF TUBE(S) [...] date: 12/03/1970 Quit date: 12/03/1987 Years since quittin.9 Passive exposure: Never Smokeless tobacco: Never Vaping [...] no exercise: Walking daily diet: Low fat orthodoxy/episcopalian: [facility] marital status: 2002 children: 3 gc: 8 [...] mouth in the morning. 90 Tablet 3 oxyCODONE-Acetaminophen 5-325 MG Oral [...] evening meals. (Patient not taking: Reported on 10/11/2024) 60 Capsule 5 Prochlorperazine Maleate 10 MG [...] OF SYSTEMS: See HPI - otherwise negative BP 136/76 (BP Site: Left Arm, BP Position: Sitting, BP Cuff Size: Large) | Pulse 76 | Temp 36.4 °C(97.6 °F) (Tympanic) | Wt 107 kg (236 lb) | SpO2 90% | BMI 40.51 kg/m² | BSA 2.2 m² OBJECTIVE: Constitutional: Patient is alert, cooperative and oriented x 3. Well built female, Patient is in noacute distress. HEENT: No icterus, no pallor, Throat and pharynx normal. Sinuses are non-tender. Neck: Supple and without lymphadenopathy or masses. No JVD. No Palpable supraclavicular lymph nodes. Lungs: Clear to auscultation. Bilateral symmetric air entry. No wheezing or rhonchi. Cardiovascular: Normal heart sounds, no murmurs.Regular rate and rhythm. Abdomen: Soft, nontender, no hepatomegaly, no splenomegaly. Bowel sounds are normal. Neurological: No gross focal neurological deficit; walks with a normal gait. Extremities: No finger clubbing, No cyanosis. No leg edema. Skin:: No skin rash. SPINE: No spinal or paraspinal tenderness. Tenderness in the axilla medially as well as tenderness in the left proximal letrozole No significant left upper extremity edema noted. LABS: Blood workup done on 10/14/2024: -WBC 3600, Hemoglobin and hematocrit - 9.7/29, Platelet count of 826114 -BUN/Creat: 10/0.9, normal LFT other than alkaline phosphatase 277. -phosphorus level --> 2.6 CT scan of the abdomen pelvis on 02/14/2024: New sclerotic osseous lesions involving left inferior scapula, bilateral ribs, vertebral bodies, pelvic bones and bilateral femora PET-CT scan done on 02/21/2024: - Hypermetabolic osseous metastases in the femurs, pelvis and spine. - * 1.3 cm subcortical sclerotic hypermetabolic lesion in the left posterior proximal intertrochanteric femur, SUV 4.1. * Amorphous sclerosis in the right intertrochanteric femur, SUV 4.2. * Anterior T12 vertebral body sclerotic lesion, SUV 3.9. * L2 vertebral body sclerotic lesions, SUV 4.2. * Right C3 lateral mass, SUV 4.0. * No sclerotic lesions are present in the humeral heads, despite mild circumferential left greater than right metabolic activity favored to represent arthropathy rather than metastases. Biopsy from the L2 vertebral body lesion --> Metastatic carcinoma, consistent with breast carcinoma primary (03/07/2024) - ER weekly positive in 50% of malignant cells, SD moderately positive in 50 was malignant cells, her2/vance--> Negative.- PD-L1 less than 1%. PET-CT scan done on 07/02/2024: -Redemonstrated innumerable treated osteoblastic lesions throughout the axial and appendicular skeleton, most decreasing or similar in avidity and at least one increased, indicating mixed treatment response. PET-CT scan done on 11/15/2024: -no FDG avid disease noted in middle stable bony changes without metabolic activity. Trace right pleural effusion noted. IMPRESSION/PLAN: Left breast cancer Metastatic disease involving multiple bones (01/2023) While on exemestane, she has developed increasing bone pain, now she has biopsy- proven metastatic disease involving the bones. Now since early March 2024, she is on Faslodex and Abemaciclib, tolerated well, initially had diarrhea which has improved, Previously noted bone pain has improved. She has chronic bilateral knee joint pain related underlying DJD. Left shoulder pain has improved. I reviewed with her and family member regarding the PET-CT scan findings and images, overall good response noted, clinically she is doing well, reviewed recent blood workup findings. Increasing alkaline phosphatase noted. She had a accidental fall few days back injuring to the right leg and right chest. Will continue Faslodex and Abemaciclib as we planned. Currently she is on Xgeva every monthly, she broke her 1 of the tooth, subsequently she had a dental extraction, Xgeva is on hold at this time since July 2024. Planning to resume in early November 2024. She will continue vitamin-D and Calcium supplementation. I am planning for follow-up PET-CT scan about 4 months and then will see her back in the clinic. Dr. Marquis Christiansen Hem/Onc (This note was [...] Notes * Tameka Ibrahim MED ASSIST - 11/13/2024 11:05 AM EST Patient identifed by name and [...] it for you? ALREADY ACTIVE Filed Vitals: 11/13/24 1103 BP: 136/76 Pulse: 76 Temp: 36.4 °C (97.6 °F) TempSrc: Tympanic SpO2: 90% Weight: 107 kg (236 lb) Patient was instructed to not get [...] Department Care Team (Latest Contact Info) Description 11/26/2024 9:00 AM EST Office Visit Cardiology, [facility] [address] [place] [address] Homar Ware PA-C [address] [place] [address] 11/29/2024 8:00 AM EST Laboratory Laboratory, [place] [facility] [address] [facility] [address] [facility] [address] 11/30/2024 12:45 PM EST Immunization/Inj ection Hematology/Onco logy Treatment, [address], [place] [phone] Nimo, Chair 7 Hem Onc [address] [address] 12/03/2024 8:00 AM EST Office Visit Orthopaedics [facility] [address] [place] [address] Javed Salas, DO [address] [place] [address] 12/11/2024 9:30 AM EST Pharmacy Pharmacy Hematology Oncology [address] [place] [place] [address] [facility] Hem/Onc [facility] [place] [address] 12/11/2024 11:45 AM EST Immunization/Inj ection Hematology/Onco logy Treatment, [address], [place] [phone] 03/04/2025 9:45 AM EDT Imaging Radiology [address] [place] [address] 03/04/2025 11:00 AM EDT Imaging Radiology [address] [place] [address] 03/14/2025 11:00 AM EDT Office Visit Hematology/Onco logy [facility] [address] [place] [address] Marquis Christiansen MD [address] [place] [address] 04/01/2025 1:00 PM EDT Hospital Encounter ENDO [facility], Endoscopy Room [facility] [address] [place], [place] [address] Amilcar Duran MD [address] [place] [address] 04/01/2025 1:00 PM EDT - 04/01/2025 1:30 PM EDT Surgery ENDO OSS, Endoscopy Room [facility] [address] [place] [phone] Amilcar Duran MD [address] [place] [address] ESOPHAGOGASTRODUODENOSCOPY (EGD), FLEXIBLE, TRANSORAL, DIAGNOSTIC 04/17/2025 10:30 AM EDT Office Visit Gastroenterolog y, [facility] [address] [place] [address] Rosendo Alcantara CRNP [address] [place] [address] Scheduled Orders Name Type Priority Associated Diagnoses Orde r Schedule PET CT SKULL BASE TO MID-THIGH FDG Medical Imaging Routine Malignant neoplasm of upper-outer quadrant of left breast in female, estrogen receptor positive (HCC) 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) Metastasis to bone (HCC) Ordered: 11/13/2024 Scheduled Procedures Name Priority Associated Diagnoses Date/Ti [...] Fecal Occult Blood Test 2000 Sigmoidoscopy 2000 Diabetic Eye Exam 08/12/2017 08/12/2016, 04/17/2013 DTap/Tdap Vaccines (2 - Td or Tdap) 12/22/2019 12/22/2009 Adult Wellness Visit 2021 Albumin/Creatinine Ratio 02/01/2024 023, 09/17/2019, 06/03/2014, Additional history exists COVID-19 Vaccine ( season) 2024 12/16/2021, 12/09/2021, 02/03/2021, Additional history exists Influenza Vaccine (FLU shot) (#1) 2024 09/23/2020, 10/05/2019, 08/17/2018, Additional history exists Pneumococcal Vaccine: 65+ Years (3 of 3 - PPSV23, PCV20 or PCV21) 10/05/2024 10/05/2019, 08/17/2018 HbA1c 02/20/2025 08/22/2024, 12/23, 08/04/2023, Additional history exists Depression Monitoring 08/20/2025 08/20/2024 GFR 11/12/2025 11/12/2024, 09/22, 09/19/2024, Additional history exists Colonoscopy 02/28/2028 02/27/2018, 07/2018, [...] Discussed due to patient's condition Care Teams Hatchery Laborer Relationship Specialty Start Date End Date Rowena Banks PA-C PCP - General Physician Mash Filter Press Operator 06/01/22 documented as of this encounter"
--- OUTSIDE RECORDS SUMMARY | 2025-04-07 11:49 | External Medical Summary | Summary of Care ---
Author Name Unknown Organization [facility] Address [address] [facility] [place] [address] Phone [phone] Care Team Providers Care Metal Rivet Machine Operator Name Role Phone Rowena Banks PA-C Primary Care Provider +1 [phone] Reason for Visit * Reason Onset Date Comments Outpatient Testing 11/20/2024 MyGenvar Encounter Details Date Type Department Care Team (Late st Contact Info) Description 11/20/2024 Telephone Hematology/Oncology Treatment, [place] [address] [place] [address] Marquis Christiansen MD [address] [place] [address] Outpatient Testing (MyGenvar) Allergies Active Allergy Reactions Criticality Noted Date [...] as of this encounter (statuses as of 11/20/2024) Medications COMBIGAN 0.2-0.5 % ophthalmic solution Instill [...] E11.9 100 Strip 11 04/15/20 22 Active Morvus TechnologyTouch UltraSoft LancetsIndicatio ns:Type 2 diabetes mellitus with [...] Nausea. 30 Tablet 3 10/29/20 24 Active Azithromycin 250 MG Oral Tablet (Zithromax)Indic ations:Bronchiti s, complicated Take 2 tabs by mouth on the first day, then 1 tab daily on days two through five 6 Tablet 11/20/20 24 025 Active Hospital, Clinic, or Other Facility Administered Medication Ordered Dose Route Frequency Start Date End Date Status albuterol sulfate (PROVENTIL) (2.5 MG/3ML) 0.083% inhalation solution 2.5 mgIndications:Restrictive lung disease,SOB (shortness of breath) 2.5 mg NEBULIZER Q4H PRN 11/07/2017 Act roe documented as of this encounter (statuses as of 11/20/2024) Active Problems Problem Noted Date Diagnosed Date [...] as of this encounter (statuses as of 11/20/2024) Resolved Problems Problem Noted Date Diagnosed Date [...] as of this encounter (statuses as of 11/20/2024) Immunizations Name Administration Dates Next Due COVID-19 [...] Telephone Encounter - Estela Whitlock RN - 11/20/2024 10:[address] Christiansen, add MyGenvar to [id number] collected 07/07/20 at [facility]. Order placed, staff message sent to pathology. Faxed request sent to [facility] to send specimen. documented in this encounter Plan of Treatment Upcoming Encounters Date Type Department Care Team (Latest Contact Info) Description 11/26/2024 9:00 AM EST Office Visit Cardiology, [facility] [address] [place] [address] Homar Ware PA-C [address] [place] [address] 11/29/2024 8:00 AM EST Laboratory Laboratory, Brigid Cruz [address] [place] [phone] Brig[facility] [address] [place] [address] 11/30/2024 12:45 PM EST Immunization/Inj ection Hematology/Onco logy Treatment, [place] [address] [place] [phone] Nimo, Chair 7 Hem Onc Scenery [address] [place] [address] 12/03/2024 8:00 AM EST Office Visit Orthopaedics [facility] [address] [facility] [place] [address] Javed Salas DO [address] [place] [address] 12/10/2024 9:00 AM EST Laboratory Laboratory, [facility] [address] [facility] [phone] [place] [address] 12/11/2024 9:30 AM EST Pharmacy Pharmacy Hematology Oncology [address] [address] [facility] [place], [facility] Hem/Onc [address] [place] [address] 12/11/2024 11:45 AM EST Immunization/Inj ection Hematology/Onco logy [facility], [place] [facility] [phone] 03/04/2025 9:45 AM EDT Imaging Radiology [address] [facility] [place] [address] 03/04/2025 11:00 AM EDT Imaging Radiology [address] [facility] [place] [address] 03/14/2025 11:00 AM EDT Office Visit Hematology/Onco logy [facility] [address] [place] [phone] Marquis Christiansen MD [address] [place] [address] 04/01/2025 1:00 PM EDT Hospital Encounter ENDO [facility], Endoscopy Room [facility] [address] [facility] [place] [address] Amilcar Duran MD [address] [place] [address] 04/01/2025 1:00 PM EDT - 04/01/2025 1:30 PM EDT Surgery ENDO [facility], Endoscopy Room [facility] [address] [place] [address] Amilcar Duran MD [address] [place] [address] ESOPHAGOGASTRODUODENOSCOPY (EGD), FLEXIBLE, TRANSORAL, DIAGNOSTIC 04/17/2025 10:30 AM EDT Office Visit Gastroenterolog y, [facility] [address] [place] [address] Rosendo Alcantara CRNP [address] [place] [address] Pending Results Name Type Priority Associated Diagnoses Date /Time ANATOMIC PATHOLOGY (BM/SURGICAL/CYTOLOGY) ADD ON REQUEST Lab Routine 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) Malignant neoplasm of upper-outer quadrant of left breast in female, estrogen receptor positive (HCC) Metastasis to bone (HCC) 11/20/2024 10:55 AM EST Scheduled Procedures Name Priority Associated Diagnoses Date/Ti wy ESOPHAGOGASTRODUODENOSCOPY ( EGD), FLEXIBLE, TRANSORAL, DIAGNOSTIC Gastroesophageal [...] breast in female, estrogen receptor positive (HCC) Metastasis to bone (HCC) Secondary malignant [...] Discussed due to patient's condition Care Teams Metal Rivet Machine Operator Relationship Specialty Start Date End Date Rowena Banks PA-C PCP - General Physician Boulevard Glassware Replacer 06/01/22 documented as of this encounter
--- OUTSIDE RECORDS SUMMARY | 2025-04-07 11:49 | External Medical Summary ---
Author Name Unknown Address Unknown Organization K01:LABORATORY C - [address] [place] [address] Laboratory Report Ordering Provider Test Date Status DINESH MOBLEY 11/29/2024 08:17:25 Final Observation Date Value Abnormality Reference (Units ) Status Phosphate 11/29/2024 08:17:25 3.4 2.5-4.8 (m g/dL) Final Performing Location [facility]ORY [facility] - [address] [place] [address]
--- OUTSIDE RECORDS SUMMARY | 2025-04-07 11:49 | External Medical Summary | Summary of Care ---
Author Name Unknown Organization [facility] Address [address] [facility] [place] [address] Phone [phone] Care Team Providers Care Manager Investigations Name Role Phone Rowena Banks PA-C Primary Care Provider [phone] [phone] Reason for Visit * Reason Comments Acute Patient is here toda y for an unproductive cough and SOB, reports having it for about three days. Reports using OTC meds with little to no relief. Encounter Details Date Type Department Care Team (Late st Contact Info) Description 11/20/2024 10:00 AM EST Office Visit [facility] [address] [facility] [place] [address] MarchJoseph MD [address] [facility] [place] [address] Bronchitis, complicated*; Restrictive lung disease; Malignant neoplasm of upper-outer quadrant of left breast in female, estrogen receptor positive (HCC); Carcinoma of left breast metastatic to [...] mouth in the morning. 06/09/20 20 Active BizzingoTouch Verio w/Device KitIndications:T ype 2 diabetes mellitus with hemoglobin A1c goal of less than 7.0% (HCC) Use up to twice times a day E11.9 1 Kit 04/15/20 22 Active BizzingoTouch Verio In Vitro Strip (Glucose Blood)Indication s:Type 2 diabetes mellitus with hemoglobin A1c goal of less than 7.0% (HCC) Use up to 2 times a day E11.9 100 Strip 11 04/15/20 22 Active BizzingoTouch UltraSoft LancetsIndicatio ns:Type 2 diabetes mellitus with [...] Sign Reading Time Taken Comments Blood Pressure 108/70 11/20/2024 10:08 AM EST Pulse 72 11/20/2024 10:08 AM EST Temperature 36.7 °C (98 °F) 11/20/2024 10: 08 AM EST Respiratory Rate 16 11/20/2024 10:0 8 AM EST Oxygen Saturation 96% 11/20/2024 10: 08 AM EST Inhaled Oxygen Concentration - - Weight 106.3 kg (234 lb 4.8 oz) 024 10:08 AM EST Height 162.6 cm (5' 4") 11/20/2024 10:0 8 AM EST Body Mass Index 40.22 11/20/2024 10:08 AM EST documented in this encounter Progress Notes * Joseph Vazquez MD - 11/20/2024 10:20 AM EST Images from the original note were not included. Assessment and Plan Likely viral illness though given patient has metastatic breast cancer for which she was on chemotherapy and is therefore immunocompromised I think it is reasonable to be a bit more aggressive with treatment. We will start azithromycin for a 5 day course and test for flu and COVID. I would recommend Tamiflu or packs Lopid if positive for flu or COVID respectively. Continue to push fluids. Continue Tylenol for fever and pain. 1. Bronchitis, complicated (Primary) - INFLUENZA A/B RSV SARS-COV2,PCR; Future - Azithromycin 250 MG Oral Tablet (Zithromax); Take 2 tabs by mouth on the first day, then 1 tab daily on days two through five Dispense: 6 Tablet; Refill: 0 - INFLUENZA A/B RSV SARS-COV2,PCR 2. Restrictive lung disease 3. Malignant neoplasm of upper-outer quadrant of left breast in female, estrogen receptor positive (HCC) 4. 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 History of Present Illness The patient is a 69-year-old female with past medical history of type 2 diabetes, hyperlipidemia, restrictive lung disease, hypertension, obesity, metastatic carcinoma of the left breast undergoing chemotherapy who presents for acute. Patient presents with 24-48 hours of viral URI symptoms along with chest congestion and mild shortness of breath. No fevers. Appetite is diminished and she has significant fatigue. No nausea/vomiting/diarrhea. She has been using Tylenol [id number]. Physical Exam Vitals: 11/20/24 1008 Temp: 98 °F (36.7 °C) Pulse: 72 Resp: 16 SpO2: 96% BP: 108/70 BMI: 40.2 Physical Exam Physical Exam Vitals reviewed. Constitutional: General: She is not in acute distress. HENT: Right Ear: Tympanic membrane normal. There is no impacted cerumen. Left Ear: Tympanic membrane normal. There is no impacted cerumen. Nose: Congestion present. Mouth/Throat: Mouth: Mucous membranes are moist. Pharynx: No oropharyngeal exudate or posterior oropharyngeal erythema. Cardiovascular: Rate and Rhythm: Normal rate and regular rhythm. Heart sounds: No murmur heard. Pulmonary: Effort: Pulmonary effort is normal. No respiratory distress. Breath sounds: Normal breath sounds. Musculoskeletal: Cervical back: Neck supple. Lymphadenopathy: Cervical: No cervical adenopathy. Neurological: General: No focal deficit present. Mental Status: She is alert. Psychiatric: Mood and Affect: Mood normal. Behavior: Behavior normal. This note has been completed in part utilizing [employer] Speech Voice Recognition Software. Due to technical limitations of the software, grammatical errors, random word insertions, prounoun errors, and incomplete sentences may occur. Any formal questions or concerns about the content, text, or information contained within the body of this dictation should be directly addressed to the provider for clarification. documented in this encounter Nursing Notes * Lin Merlos MED ASSIST - 11/20/2024 10:15 AM EST The patient has been properly identified by confirmation of name and date of . Chief Complaint Patient presents with Acute Patient is here today for an unproductive cough and SOB, reports having it for about three days. Reports using OTC meds with little to no relief. documented in this encounter Plan of Treatment Upcoming Encounters Date Type Department Care Team (Latest Contact Info) Description 11/26/2024 9:00 AM EST Office Visit Cardiology, [facility] [address] [place] [address] Homar Ware PA-C [address] [place] [address] 11/29/2024 8:00 AM EST Laboratory Laboratory, Brigid Peña [address] [facility] [place] [phone] Brigid [facility] [place] [address] 11/30/2024 12:45 PM EST Immunization/Inj ection Hematology/Onco logy Treatment, [place] [facility] [phone] Nimo, Chair 7 Hem Onc [facility] 200 [place] [address] 12/03/2024 8:00 AM EST Office Visit Orthopaedics [facility] [address] [place] [address] Javed Salas DO [address] [place] [address] 12/10/2024 9:00 AM EST Laboratory Laboratory, Brigid [address] [place] [address] Brigid, Laboratory [address] [place] [address] 12/11/2024 9:30 AM EST Pharmacy Pharmacy Hematology Oncology [facility] [address] [place] [address] [facility] Hem/Onc [address] [place] [address] 12/11/2024 11:45 AM EST Immunization/Inj ection Hematology/Onco logy Treatment, [place] 200 [place] [address] 03/04/2025 9:45 AM EDT Imaging Radiology [address] [place] [address] 03/04/2025 11:00 AM EDT Imaging Radiology [address] 132 [facility] [place] [address] 03/14/2025 11:00 AM EDT Office Visit Hematology/Onco logy [facility] 200 [place] [phone] Marquis Christiansen MD [address] [facility] [address] 04/01/2025 1:00 PM EDT Hospital Encounter ENDO [facility], Endoscopy Room [facility] [address] [place] [phone] Amilcar Duran MD [address] [place] [address] 04/01/2025 1:00 PM EDT - 04/01/2025 1:30 PM EDT Surgery ENDO [facility], Endoscopy Room [facility] [address] [place] [address] Amilcar Duran MD [address] [place] [address] ESOPHAGOGASTRODUODENOSCOPY (EGD), FLEXIBLE, TRANSORAL, DIAGNOSTIC 04/17/2025 10:30 AM EDT Office Visit Gastroenterolog y, [facility] [address] [place] [address] Rosendo Alcantara CRNP [address] [place] [address] Pending Results Name Type Priority Associated Diagnoses Date /Time INFLUENZA A/B RSV SARS-COV2,PCR Lab Routine Bronchitis, complicated 11/20/2024 10:34 AM EST Scheduled Orders Name Type Priority Associated Diagnoses Orde r Schedule INFLUENZA A/B RSV SARS-COV2,PCR Lab Routine Bronchitis, complicated Expected: 11/20/2024 (Approximate), Expires: 11/20/2025 Scheduled Procedures Name Priority Associated Diagnoses Date/Ti [...] as of this encounter Visit Diagnoses Diagnosis Bronchitis, complicated- Primary Bronchitis, not specified as acute or chronic Restrictive lung disease Other diseases of lung, not elsewhere classified Malignant neoplasm of upper-outer quadrant of left [...] due to patient's condition Care Teams Manager Investigations Relationship Specialty Start Date End Date Rowena Banks PA-C PCP - General Physician Methods Analyst Data Processing 06/01/22 documented as of this encounter
--- NOTE | 2025-04-07 11:50 | Emergency Department Note ---
Impression & Plan Acute dyspnea, Pleural effusion, bilateral, Elevated brain natriuretic peptide (BNP) level, Elevated troponin ED Provider Note HISTORY OF PRESENT ILLNESS: Patient is a 69-year-old female presenting with chest pain or shortness of breath. Patient reports she has been having intermittent episodes of shortness of breath for the last month. She follows with oncology and was on oral chemotherapy and they had thought that it was secondary to just generalized weakness. Patient reportedly was doing well last week. However, starting yesterday she developed some significant shortness of breath both at rest and with exertion. Patient woke up today and her breathing was significantly worse. She states that she developed chest pain today and locates the pain to the left of the sternum and describes it as sharp in nature. Reports the pain is worse when she takes a deep breath. Denies any DVT or PE history. 3 weeks ago she was having some left lower extremity isolated swelling and had a Doppler ultrasound performed with her oncologist which was negative. Patient has been off of her oral chemo for the last 2 weeks. She denies any recent fevers. She has had a cough productive of white sputum in the last 72 hours. Denies any recent sick contact exposures. Denies any abdominal pain, nausea or vomiting. Patient is on a baby aspirin daily but denies any other anticoagulation use. Denies any history of cardiac stents. ROS: as above PHYSICAL EXAM: Constitutional: Patient appears in no acute distress. HENT: Head: Normocephalic and atraumatic. Eyes: EOMI, PERRL Mouth/Throat: Mucous membranes moist. Neck: Trachea midline. Neck supple. Cardiovascular: RRR, No murmurs, rubs or gallops. Intact distal pulses. Pulmonary/Chest: No respiratory distress. Breath sounds equal and clear bilaterally. No appreciable wheezes. Patient does appear tachypneic. Decreased breath sounds in bilateral lung bases posteriorly. Abdominal: Abdomen soft, no tenderness, rebound or guarding. Musculoskeletal: No edema, tenderness or deformity noted. Skin: Warm and dry. No rash, erythema, pallor or cyanosis Psychiatric: Appropriate mood and affect for situation. Neurological: Alert and keenly responsive. CN II-XII grossly intact, moving all extremities equally and fully. MDM: - Vitals signs showed hypertension - History obtained via patient. History as above. - Chronic conditions affecting care: rheumatoid arthritis; HTN; HLD; carotid stenosis; DM-2; diastolic HF; metastatic breast cancer; DM-2 - Differential diagnoses include, but are not limited to: Congestive heart failure; acute coronary syndrome; COPD/asthma exacerbation; pulmonary edema; pulmonary embolism; pneumonia; pneumothorax; viral syndrome - Order placed for continuous cardiac monitoring. At this time, monitor showed rate of 82 bpm with normal sinus rhythm, per my interpretation. - External medical records reviewed. Cardiology office visit note dated 02/03/2023 was reviewed. Patient follows in the clinic for routine cardiology care. - EKG image interpreted by myself showed normal sinus rhythm. Rate 81 bpm. QT 408. No acute ischemic changes. - Laboratory workup interpreted by myself showed normal WBC; normal PT/INR; hypocalcemia (Ca 7.4); elevated troponin (29.7); elevated BNP (406) - Viral respiratory panel negative - VBG normal - CXR image reviewed by myself showed bilateral pleural effusions, per my interpretation. Radiology notes pulmonary vascular congestion with layering pleural effusions and right pleural effusion is multiloculated. - CT PE negative for PE. Noted to have bilateral pleural effusions. - Discussion was had with supervisor case loading about patient's case and need for admission - Hospitalist consulted for admission - [facility] ASSESSMENT AND PLAN: Diagnosis: acute dyspnea; elevated BNP; elevated troponin; bilateral pleural effusions Plan: admit Past Med/Surg History Problem List (Updated 04/07/25 @ 14:35 by Pau Fairbanks MD) Elevated troponin (Acute) Elevated brain natriuretic peptide (BNP) level (Acute) Pleural effusion, bilateral (Acute) Acute dyspnea (Acute) COVID-19 (Acute) Lymphedema of arm Encounter for pre-operative examination Malignant neoplasm of upper-outer quadrant of left breast in female, estrogen receptor positive (Chronic 10/31/19) Medical History Basal cell carcinoma nose Diastolic heart failure pt denies Diabetes mellitus "borderline" Recurrent headache MRI of brain with sedation (03/2023) no findings. Breast cancer Dx 2018, s/p chemo/XRT Fatty liver disease, nonalcoholic Neuropathy Bronchial asthma Stable History of migraine Rheumatoid arthritis stable without medical therapy Restrictive lung disease Carotid stenosis follows with vascular ([facility]) B/L ICA stenosis < 50% Morbid obesity Chronic back pain Fibromyalgia GI bleed 1998 2/2 stomach ulcer Irritable bowel disease Glaucoma Depression Anxiety Vertigo hx BPPV, no issues x months Hypertension Hyperlipidemia Surgical History Hx of right cataract extraction w/right hydrus stent insert Status post surgery removal of excess skin from the axilla/flank area (August 2023) History of Matt fundoplication LISTED ON ABOVE LIST, BUT PT DENIES H/O surgical procedure A-port insertion: 11/26/19: MAC sedation at [facility] has since been removed. History of bilateral mastectomy (07/07/20) with L axilla dissection (performed by Dr. Homar Sarah) History of left breast biopsy (10/31/19) Positive - Invasive CA, ER/NH+, HER2-, + axilla LN History of surgery (1979) Repair of broken nose and right cheek bone History of ovarian cystectomy (1976) History of breast surgery (~1979) Bilat Breast Excisions - Benign - @ [facility] History of cholecystectomy (1996) History of appendectomy (1989) History of esophagogastroduodenoscopy (EGD) 01/24/2014, 11/07/14, 07/25/19 ([facility]) History of colonoscopy 2011, 2017 History of tonsillectomy and adenoidectomy (1980) History of bilateral tubal ligation (1985) History of dilatation and curettage Multiple History of total abdominal hysterectomy and bilateral salpingo-oophorectomy (1989) History of section (1985) X 1 History of repair of rotator cuff (05/28/13) RIGHT History of herniorrhaphy (~2000) 2000 x10 repairs with implanted mesh H/O exploratory laparotomy (1997) Emergency ulcer repair History of tooth extraction wisdom teeth History of nasal septoplasty (08/12/16) Family History Mother , Passed age 77 of metastatic cancer (unknown primary) No problems noted. Father , Passed age 87 of CHF No problems noted. Aunt Breast cancer, Onset Age: 50 Maternal Family/Other Breast cancer, Onset Age: 60 Cousin Family/Other Breast cancer, Onset Age: 50 Cousin Brother No problems noted. Brother No problems noted. Daughter No problems noted. Son No problems noted. Son No problems noted. 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 Feels Safe at Home: Yes Childhood Exposure to Second-Hand Smoke: Yes Diet: low salt and regular caffeine: No during the past year weight has: remained stable Dental Care, Regularly: Yes Assistive Devices: Glasses Allergies Allergies Allergy/AdvReac Type Severity Reaction Status Date / Time amoxicillin Allergy Severe Augmentin- Verified 04/07/25 13:39 itchy, swelling, dyspnea clavulanic acid Allergy Severe Augmentin- Verified 04/07/25 13:39 itchy, swelling, dyspnea Penicillins Allergy Severe Augmentin- Verified 04/07/25 13:39 itchy, swelling, dyspnea lisinopril Allergy Mild cough/swell Verified 04/07/25 13:39 ing Sulfa (Sulfonamide Allergy Mild Rash Verified 04/07/25 13:39 Antibiotics) Home Meds Home Medications Medication Instructions Recorded Confirmed brimonidine 0.2 %-timolol 0.5 % 1 drp ophthalmic (eye) BID 08/15/18 04/07/25 eye drops (Combigan) duloxetine 60 mg capsule,delayed 60 mg PO HS 07/18/19 04/07/25 release (Cymbalta) montelukast 10 mg tablet 10 mg PO QAM 11/26/19 04/07/25 dorzolamide 2 % eye drops 1 drp OPB BID 01/19/20 04/07/25 aspirin 81 mg tablet,delayed 81 mg PO QAM 08/12/20 04/07/25 release calcium 600 mg (as 1 tab PO QAM 08/12/20 04/07/25 carbonate)-vitamin D3 20 mcg (800 unit) tablet (Caltrate with Vitamin D3) esomeprazole magnesium 40 mg 40 mg PO QAM 08/12/20 04/07/25 capsule,delayed release (Nexium) furosemide 20 mg tablet 20 mg PO QAM PRN Edema 02/17/21 04/07/25 gabapentin 300 mg capsule 300 mg PO QPM 07/14/24 04/07/25 albuterol sulfate 90 mcg/actuation 2 puff inhalation QID PRN 04/07/25 04/07/25 aerosol inhaler Shortness Of Breath Or Wheezing bupropion HCl 150 mg 24 hr tablet, 150 mg PO HS 04/07/25 04/07/25 extended release carvedilol 6.25 mg tablet 6.25 mg PO BID 04/07/25 04/07/25 famotidine 20 mg tablet 20 mg PO HS 04/07/25 04/07/25 fluticasone propionate 50 1 spray intranasal DAILY PRN 04/07/25 04/07/25 mcg/actuation nasal Congestion spray,suspension gabapentin 100 mg capsule 100 mg PO QAM 04/07/25 04/07/25 mv-mn-folic 200 mcg-vit K 15 1 cap PO QAM 04/07/25 04/07/25 mcg-lutein 5 mg-zeaxanthin 1 mg capsule (PreserVision AREDS 2 Plus Multivit) ondansetron HCl 8 mg tablet 8 mg PO Q6H PRN Nausea And Vomiting 04/07/25 04/07/25 prochlorperazine maleate 10 mg 10 mg PO Q6H PRN Nausea And 04/07/25 04/07/25 tablet Vomiting Results & Data (ED) Vital Signs Vital Signs - 24 hr 04/07/25 11:30 04/07/25 11:43 04/07/25 12:00 Temperature 36.7 C Temperature Source Temporal Artery Scan Pulse Rate 81 76 Pulse Rate [Apical] Pulse Rhythm Pulse Rhythm [Apical] Pulse Strength [Apical] Respiratory Rate 18 Respiratory Effort / Characteristics Non-Labored Spontaneous Short of Breath Respiratory Depth Normal Shallow Respiratory Pattern Regular Blood Pressure 142/72 H Blood Pressure [Right Arm] Blood Pressure Mean 95 Blood Pressure Mean [Right Arm] Blood Pressure Position Sitting Blood Pressure Position [Right Arm] Pulse Oximetry 92 Oxygen Delivery Method Room Air Room Air Sepsis Recent Fever Within 48 Hours No Sepsis New/Unexplained Change in Mental Status N/A Sepsis Action Taken by Nursing No Action Required 04/07/25 12:02 04/07/25 12:10 04/07/25 12:15 Temperature Temperature Source Pulse Rate 78 Pulse Rate [Apical] 76 Pulse Rhythm Regular Pulse Rhythm [Apical] Regular Pulse Strength [Apical] Normal Respiratory Rate 26 H 24 Respiratory Effort / Characteristics Respiratory Depth Respiratory Pattern Blood Pressure Blood Pressure [Right Arm] 156/89 H Blood Pressure Mean Blood Pressure Mean [Right Arm] 111 Blood Pressure Position Blood Pressure Position [Right Arm] Sitting Pulse Oximetry 93 93 91 Oxygen Delivery Method Room Air Room Air Room Air Sepsis Recent Fever Within 48 Hours Sepsis New/Unexplained Change in Mental Status Sepsis Action Taken by Nursing Laboratory Data 04/07/25 12:10 04/07/25 12:10 Lab Results 04/07/25 04/07/25 04/07/25 Range/Units 12:04 12:10 12:13 WBC 5.39 (4.8-10.8) K/ul RBC 3.01 L (4.20-5.40) M/uL Hgb 10.1 L (12.0-16.0) g/dl Hct 30.4 L (37.0-47.0) % MCV 101.0 H (80.0-100.0) fL MCH 33.6 (25.0-34.0) pg MCHC 33.2 (32.0-36.0) g/dL RDW Std Deviation 59.3 H (36.4-46.3) fL RDW Coeff of Yesi 16.1 H (11.5-14.5) % Plt Count 141 (130-400) K/uL MPV 10.9 (9.4-12.4) fL Immature Gran % (Auto) 0.4 % Neut % (Auto) 75.6 % Lymph % (Auto) 11.9 % [place] % (Auto) 8.9 % Eos % (Auto) 2.6 % Baso % (Auto) 0.6 % Neut # (Auto) 4.08 (1.40-6.50) K/uL Lymph # (Auto) 0.64 L (1.20-3.40) K/uL [place] # (Auto) 0.48 (0.11-0.59) K/uL Eos # (Auto) 0.14 (0.00-0.50) K/uL Baso # (Auto) 0.03 (0.00-0.20) K/uL Immature Gran # (Auto) 0.02 (0.01-0.20) K/uL PT Cancelled INR Cancelled VBG pH 7.37 (7.36-7.41) VBG pCO2 40 (38-50) mmHg VBG pO2 88 mmHg VBG HCO3 23 mmol/L VBG O2 Saturation 97.1 % VBG Base Excess -2.0 mEq/L Sodium 140 (136-145) mmol/L Potassium 3.8 (3.5-5.1) mmol/L Chloride 109 H (98-107) mmol/L Carbon Dioxide 24 (21-32) mmol/L Anion Gap 7 (3-11) BUN 9 (6-23) mg/dl Creatinine 0.47 L (0.6-1.2) mg/dl Est Cr Clr Drug Dosing 126.2 ml/min eGFR 102.99 BUN/Creatinine Ratio 19.1 (10-20) Glucose 171 H (70-99(Fasting)) mg/dl Calcium 7.4 L (8.6-10.3) mg/dl Magnesium 1.9 (1.7-2.4) mg/dl Total Bilirubin 1.3 H (0.2-1.0) mg/dl AST 34 (13-39) U/L ALT 17 (7-52) U/L Alkaline Phosphatase 252 H (34-104) U/L Troponin I High Sens 29.7 H (0-14) pg/ml B-Natriuretic Peptide 406 H (0-100) pg/ml Total Protein 6.4 (6.0-8.3) gm/dl Albumin 3.8 (3.4-5.0) gm/dl Globulin 2.6 (2.5-4.0) gm/dl Albumin/Globulin Ratio 1.5 (0.9-2) Adenovirus (PCR) Not Detected (NotDetected) B. pertussis DNA (PCR) Not Detected (NotDetected) B.parapertussis DNA PCR Not Detected (NotDetected) C. pneumoniae DNA (PCR) Not Detected (NotDetected) Coronavirus OC43 (PCR) Not Detected (NotDetected) Coronavirus HKU1 (PCR) Not Detected (NotDetected) Coronavirus 229E (PCR) Not Detected (NotDetected) SARS-CoV-2 (PCR) Not Detected (NotDetected) Coronavirus NL63 (PCR) Not Detected (NotDetected) Human Metapneumovir PCR Not Detected (NotDetected) Influenza Type A (PCR) Not Detected (NotDetected) Influenza Type B (PCR) Not Detected (NotDetected) M. pneumoniae (PCR) Not Detected (NotDetected) Parainfluenza 1 (PCR) Not Detected (NotDetected) Parainfluenza 2 (PCR) Not Detected (NotDetected) Parainfluenza 3 (PCR) Not Detected (NotDetected) Parainfluenza 4 (PCR) Not Detected (NotDetected) RSV (PCR) Not Detected (NotDetected) Entero/Rhino (PCR) Not Detected (NotDetected) 04/07/25 Range/Units 12:32 WBC (4.8-10.8) K/ul RBC (4.20-5.40) M/uL Hgb (12.0-16.0) g/dl Hct (37.0-47.0) % MCV (80.0-100.0) fL MCH (25.0-34.0) pg MCHC (32.0-36.0) g/dL RDW Std Deviation (36.4-46.3) fL RDW Coeff of Yesi (11.5-14.5) % Plt Count (130-400) K/uL MPV (9.4-12.4) fL Immature Gran % (Auto) % Neut % (Auto) % Lymph % (Auto) % [place] % (Auto) % Eos % (Auto) % Baso % (Auto) % Neut # (Auto) (1.40-6.50) K/uL Lymph # (Auto) (1.20-3.40) K/uL [place] # (Auto) (0.11-0.59) K/uL Eos # (Auto) (0.00-0.50) K/uL Baso # (Auto) (0.00-0.20) K/uL Immature Gran # (Auto) (0.01-0.20) K/uL PT 11.2 INR 1.0 VBG pH (7.36-7.41) VBG pCO2 (38-50) mmHg VBG pO2 mmHg VBG HCO3 mmol/L VBG O2 Saturation % VBG Base Excess mEq/L Sodium (136-145) mmol/L Potassium (3.5-5.1) mmol/L Chloride (98-107) mmol/L Carbon Dioxide (21-32) mmol/L Anion Gap (3-11) BUN (6-23) mg/dl Creatinine (0.6-1.2) mg/dl Est Cr Clr Drug Dosing ml/min eGFR BUN/Creatinine Ratio (10-20) Glucose (70-99(Fasting)) mg/dl Calcium (8.6-10.3) mg/dl Magnesium (1.7-2.4) mg/dl Total Bilirubin (0.2-1.0) mg/dl AST (13-39) U/L ALT (7-52) U/L Alkaline Phosphatase (34-104) U/L Troponin I High Sens (0-14) pg/ml B-Natriuretic Peptide (0-100) pg/ml Total Protein (6.0-8.3) gm/dl Albumin (3.4-5.0) gm/dl Globulin (2.5-4.0) gm/dl Albumin/Globulin Ratio (0.9-2) Adenovirus (PCR) (NotDetected) B. pertussis DNA (PCR) (NotDetected) B.parapertussis DNA PCR (NotDetected) C. pneumoniae DNA (PCR) (NotDetected) Coronavirus OC43 (PCR) (NotDetected) Coronavirus HKU1 (PCR) (NotDetected) Coronavirus 229E (PCR) (NotDetected) SARS-CoV-2 (PCR) (NotDetected) Coronavirus NL63 (PCR) (NotDetected) Human Metapneumovir PCR (NotDetected) Influenza Type A (PCR) (NotDetected) Influenza Type B (PCR) (NotDetected) M. pneumoniae (PCR) (NotDetected) Parainfluenza 1 (PCR) (NotDetected) Parainfluenza 2 (PCR) (NotDetected) Parainfluenza 3 (PCR) (NotDetected) Parainfluenza 4 (PCR) (NotDetected) RSV (PCR) (NotDetected) Entero/Rhino (PCR) (NotDetected) Administered Medications Discontinued Medications Ioversol (Optiray 320 125ml) 118 ml IV ONCE ONE Stop: 04/07/25 13:22 Last Admin: 04/07/25 13:21 Dose: 118 ml Documented By: YESI Imaging Data Radiologist's Impression: Chest X-Ray 04/07/25 11:36 XR chest 1V portable HISTORY: 69 years-old Female Dyspnea COMPARISON: 07/14/2024, CT chest 04/04/2022 TECHNIQUE: AP view of the chest FINDINGS: Cardiac silhouette is enlarged. Pulmonary vascular congestion with interstitial coarsening. Right greater than left pleural effusions. Right pleural effusion demonstrates a loculated component laterally. Bibasilar and lateral left midlung consolidation. Sclerotic bony lesions. IMPRESSION: 1. Cardiomegaly with pulmonary vascular congestion. 2. Layering pleural effusions with bibasilar consolidation. The right pleural effusion is multiloculated. 3. Bony sclerotic metastasis. ACT 112: Negative or not required by law. The above report was generated using voice recognition software. It may contain grammatical, syntax or spelling errors. Electronically signed by: Jose Martin Garber M.D. 04/07/2025 1:54 PM Chest CTA 04/07/25 11:46 CT pulmonary angiogram with IV contrast History: Shortness of breath COMPARISON: None TECHNIQUE: CT angiography of the chest was performed without IV contrast followed by IV contrast, including 3D post processing CTA image reconstruction. Dose reduction techniques were achieved by using automatic exposure control and/or adjustment of mA and/or kV according to patient size and/or use of iterative reconstruction technique. FINDINGS: Diagnostic quality: Adequate There is no evidence for pulmonary embolism. The heart is not enlarged. Moderate coronary calcification. Enlarged pulmonary artery at 3.7 cm suggesting pulmonary hypertension. Mitral annular calcifications. There is no pericardial effusion. There are no abnormally enlarged hilar or mediastinal lymph nodes. The central tracheobronchial tree is clear. Moderate bilateral pleural effusions with subjacent compressive atelectasis. Limited visualized upper abdomen. No destructive osseous changes are seen. Degenerative change of the shoulder joints. Bilateral mastectomy changes. There is a thin postoperative seroma in the right chest wall surrounded by soft tissue edema. Diffuse patchy sclerosis throughout the bones of the spine, ribs, shoulders, clavicles, and sternum consistent with bony metastatic disease. IMPRESSION: No evidence for pulmonary embolism. Moderate pleural effusions. Diffuse sclerotic lesions throughout the bones consistent with metastasis. Electronically signed by Luis Angel Mayo 04-07-2025 2:32 PM Discharge Plan Visit Data Chief Complaint: Shortness of Breath/Dyspnea Stated Complaint: SOB ED Provider: Pau Fairbanks Discharge Problem: Acute dyspnea, Pleural effusion, bilateral, Elevated brain natriuretic peptide (BNP) level, Elevated troponin Condition: Fair Forms Stand Alone Forms: My [facility] [employer] Prescriptions Prescriptions: No Action esomeprazole magnesium [Nexium] 40 mg capsule,delayed release(DR/EC) 40 mg PO QAM aspirin 81 mg tablet,delayed release (DR/EC) 81 mg PO QAM calcium carbonate-vitamin D3 [Caltrate with Vitamin D3] 600 mg(1,500mg) -800 unit tablet 1 tab PO QAM montelukast 10 mg tablet 10 mg PO QAM dorzolamide 2 % drops 1 drp OPB BID Rx Instructions: both eyes brimonidine-timolol [Combigan] 0.2-0.5 % Drops 1 drp OPHTHALMIC (EYE) BID Rx Instructions: both eyes duloxetine [Cymbalta] 60 mg Capsule,Delayed Release(Dr/Ec) 60 mg PO HS furosemide 20 mg tablet 20 mg PO QAM PRN (Reason: Edema) gabapentin 300 mg capsule 300 mg PO QPM carvedilol 6.25 mg tablet 6.25 mg PO BID ondansetron HCl 8 mg tablet 8 mg PO Q6H PRN (Reason: Nausea And Vomiting) prochlorperazine maleate 10 mg tablet 10 mg PO Q6H PRN (Reason: Nausea And Vomiting) famotidine 20 mg tablet 20 mg PO HS gabapentin 100 mg capsule 100 mg PO QAM albuterol sulfate 90 mcg/actuation HFA aerosol inhaler 2 puff INHALATION QID PRN (Reason: Shortness Of Breath Or Wheezing) fluticasone propionate 50 mcg/actuation spray,suspension 1 spray INTRANASAL DAILY PRN (Reason: Congestion) bupropion HCl 150 mg tablet extended release 24 hr 150 mg PO HS PreserVision AREDS 2 Plus MV 200 mcg-15 mcg- 5 mg-1 mg Capsule 1 cap PO QAM Referrals Referrals: Rowena Banks PA-C [Primary Care Provider] -
--- OUTSIDE RECORDS SUMMARY | 2025-04-07 11:50 | External Medical Summary ---
Author Name Unknown Address Unknown Organization K01:LABORATORY [facility] - [address] [facility] [place] [address] Laboratory Report Ordering Provider Test Date Status DINESH MOBLEY 11/12/2024 08:00:29 Final Observation Date Value Abnormality Reference (Units ) Status BUN 11/12/2024 08:00:29 10 6-20 (mg/dL) Final Creatinine 11/12/2024 08:00:29 0.9 0.5-1.0 (mg/dL) Final Glomerular filtration rate/1.73 sq M.predicted [Volume Rate/Area] in Serum, Plasma or Blood by Creatinine-based formula (CKD-EPI) 11/12/2024 08:00:29 71 >=60 (mL/min) Final eGFR is calculated based on the CKD-EPI 2020 equation. Sodium 11/12/2024 08:00:29 142 135-146 (m mol/L) Final Potassium 11/12/2024 08:00:29 4.3 3.5-5.1 (m mol/L) Final Cl 11/12/2024 08:00:29 107 98-107 (mm ol/L) Final CO2 11/12/2024 08:00:29 24 22-32 (mmo l/L) Final Anion gap 11/12/2024 08:00:29 11 7-15 (mmol /L) Final Glucose 11/12/2024 08:00:29 131 Above high normal 70 -120 (mg/dL) Final Albumin 11/12/2024 08:00:29 4.2 3.8-5.0 (g /dL) Final AST (Aspartate aminotransferase) 11/12/2024 08:00:29 24 10-35 (U/L) Fin al Alk Phos 11/12/2024 08:00:29 277 Above high normal 35 -130 (U/L) Final Bilirubin, Total 11/12/2024 08:00:29 0.6 <=1 .2 (mg/dL) Final Calcium 11/12/2024 08:00:29 9.2 8.4-10.2 ( mg/dL) Final Protein 11/12/2024 08:00:29 6.8 6.0-8.3 (g /dL) Final ALT (Alanine aminotransferase) 11/12/2024 08:00:29 6 Below low normal 10-35 (U/L) Final Performing Location LABORATORY [facility] - [address] [facility] [address]
--- OUTSIDE RECORDS SUMMARY | 2025-04-07 11:50 | External Medical Summary ---
Author Name Unknown Address Unknown Organization K01:LABORATORY [facility] - [facility] [address] [place] [address] Laboratory Report Ordering Provider Test Date Status DINESH MOBLEY 11/12/2024 08:00:29 Final Observation Date Value Abnormality Reference (Units ) Status WBC, Total 11/12/2024 08:00:29 3.60 Below low normal 4.00-10.80 (K/uL) Final RBC 11/12/2024 08:00:29 2.67 3.85-5.15 (M/uL) Final Hemoglobin 11/12/2024 08:00:29 9.7 Below low normal 12.0-15.3 (g/dL) Final HCT 11/12/2024 08:00:29 29.4 Below low normal 36.0-45.2 (%) Final MCV 11/12/2024 08:00:29 110.1 81.5-97.5 (fL) Final MCH 11/12/2024 08:00:29 36.3 27.0-34.0 (pg) Final MCHC 11/12/2024 08:00:29 33.0 32.0-36.0 (g/dL) Final RDW 11/12/2024 08:00:29 15.6 11.5-15.5 (%) Final Platelets 11/12/2024 08:00:29 150 140-400 (K/uL) Final MPV 11/12/2024 08:00:29 10.3 6.6-11.1 (fL) Final Nucleated erythrocytes/100 leukocytes [Ratio] in Blood by Automated count 11/12/2024 08:00:29 0 <=0 (/100 WBCs) Final Performing Location LABORATORY [facility] - [address] [place] [address]
--- OUTSIDE RECORDS SUMMARY | 2025-04-07 11:50 | External Medical Summary | Summary of Care ---
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) Procedures [place] INJECTION, FULVESTRANT Marquis Christiansen MD [address] [place] [address] [place] [address] Phone: tel: fax: Hematology/Oncology Treatment, [address] [address] Phone: tel: fax: Referral ID Status Reason Start Date Expiration Date V isits Requested Visits Authorized [id number] Authorized 03/15/2024 11/20/2099 [id number] Encounter Details Date Type Department Care Team (Late st Contact Info) Description 11/13/2024 11:45 AM EST Immunization/I njection Hematology/Oncology Treatment, [address] [place] [address] Nimo, Chair 5 Hem On[address] [place] [address] Carcinoma of left breast metastatic to axillary [...] 11/26/2024 9:00 AM EST Office Visit Cardiology, [facility] [address] [place] [address] Homar Ware PA-C [address] [place] [address] 11/29/2024 8:00 AM EST Laboratory Laboratory, Brigid Cruz [address] [place] [phone] [facility] [address] [place] [address] 11/30/2024 12:45 PM EST Immunization/Inj ection Hematology/Onco logy Treatment, [place] [facility] [phone] Nimo, Chair 7 Hem Onc Scenery [address] [place] [address] 12/03/2024 8:00 AM EST Office Visit Orthopaedics [facility] 132 [facility] [place] [address] Javed Salas, [address] [facility] [place] [address] 12/11/2024 9:30 AM EST Pharmacy Pharmacy Hematology Oncology [place] [address] [place] [address] [facility], [facility] Hem/Onc [facility] [place] [address] 12/11/2024 11:45 AM EST Immunization/Inj ection Hematology/Onco logy Treatment, [place] [address] [facility] [phone] 03/04/2025 9:45 AM EDT Imaging Radiology [address] [place] [address] 03/04/2025 11:00 AM EDT Imaging Radiology [address] [facility] [place] [address] 03/14/2025 11:00 AM EDT Office Visit Hematology/Onco logy [facility] Nimo [place] [address] [place] [phone] Marquis Christiansen MD [address] [place] [address] 04/01/2025 1:00 PM EDT Hospital Encounter ENDO [facility], Endoscopy Room OSS [address] [place] [address] Amilcar Duran MD [address] [place] [address] 04/01/2025 1:00 PM EDT - 04/01/2025 1:30 PM EDT Surgery [facility], Endoscopy Room OSS [address] [place] [phone] Amilcar Duran MD [address] [place] [address] ESOPHAGOGASTRODUODENOSCOPY (EGD), FLEXIBLE, TRANSORAL, DIAGNOSTIC 04/17/2025 10:30 AM EDT Office Visit Gastroenterolog y, [facility] [address] [place] [address] oRsendo Alcantara CRNP [address] [place] [address] Scheduled Procedures Name Priority Associated Diagnoses Date/Ti [...] 09/19/2024, Additional history exists Colonoscopy 02/28/2028 02/27/2018, 040 [...] Discussed due to patient's condition Care Teams Loader Helper Sorting Yard Relationship Specialty Start Date End Date Rowena Banks PA-C PCP - General Physician Bag Builder 06/01/22 documented as of this encounter
--- OUTSIDE RECORDS SUMMARY | 2025-04-07 11:50 | External Medical Summary | Summary of Care ---
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) Procedures RI INJECTION, FULVESTRANT Marquis Christiansen MD [address] [place] [id number] Phone: tel: fax: Hematology/Oncology Treatment, [address] [address] Phone: tel: fax: Referral ID Status Reason Start Date Expiration Date V isits Requested Visits Authorized [id number] Authorized 03/15/2024 11/20/2099 [id number] Encounter Details Date Type Department Care Team (Late st Contact Info) Description 10/19/2024 10:45 AM EST Immunization/I njection Hematology/Oncology Treatment, [address] [address] Carcinoma of left breast metastatic [...] as of this encounter (statuses as of 10/26/2024) Medications COMBIGAN 0.2-0.5 % ophthalmic solution Instill [...] mouth in the morning. 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 60 Each 1 09/04/20 24 Active Gabapentin 100 MG Oral Capsule [...] Pain, Moderate. 60 Tablet 10/14/20 24 Active Hospital, Clinic, or Other Facility Administered Medication Ordered Dose Route Frequency Start Date End Date Status albuterol sulfate (PROVENTIL) (2.5 MG/3ML) 0.083% inhalation solution 2.5 mgIndications:Restrictive lung disease,SOB (shortness of breath) 2.5 mg NEBULIZER Q4H PRN 11/07/2017 Act roe documented as of this encounter (statuses as of 10/26/2024) Active Problems Problem Noted Date Diagnosed Date [...] as of this encounter (statuses as of 10/26/2024) Resolved Problems Problem Noted Date Diagnosed Date [...] as of this encounter (statuses as of 10/26/2024) Immunizations Name Administration Dates Next Due COVID-19 [...] Nursing Notes * Tameka Loco LPN - 10/19/2024 10:53 AM EST Pt arrived for Faslodex injection and Vitamin B12 injection. Administered in R deltoid and B/L dorsogluteal. Pt tolerated well. To return in one week for Vitamin B12 and 4 weeks for Faslodex. Discharged in stable condition. documented in this encounter Plan of Treatment Upcoming Encounters Date Type Department Care Team (Latest Contact Info) Description 11/02/2024 10:30 AM EST Immunization/Inj ection Hematology/Oncol [facility], [place] [address] [facility] [address] [place] [address] Nimo, Chair 5 Hem Onc [address] [place] [address] 11/05/2024 9:45 AM EST Imaging Radiology [address] [facility] [place] [address] 11/05/2024 11:00 AM EST Imaging Radiology [address] [facility] [place] [address] 11/13/2024 11:15 AM EST Office Visit Hematology/Oncol ogy [address] [place] [phone] Marquis Christiansen MD [address] [place] [address] 11/15/2024 9:10 AM EST Laboratory Laboratory, [facility] [address] [place] [phone] [place], [address] [address] 11/16/2024 12:45 PM EST Immunization/Inj ection Hematology/Oncol ogy Treatment, [place] [address] [place] [phone] Nimo, Chair 7 Hem Onc Scenery [address] [place] [address] 11/26/2024 9:00 AM EST Office Visit Cardiology, [facility] [address] [facility] [place] [address] Homar Ware, PA-C [address] [place] [address] 12/03/2024 8:00 AM EST Office Visit Orthopaedics [facility] [address] [facility] [place] [address] Javed Salas S, DO [address] [facility] [place] [address] 12/11/2024 9:30 AM EST Pharmacy Pharmacy Hematology Oncology [facility] [address] [place] [address] [facility] Hem/Onc [address] [place] [address] 04/01/2025 1:00 PM EDT Hospital Encounter ENDO [facility], Endoscopy Room [facility] [address] [place] [address] Amilcar Duran MD [address] [place] [address] 04/01/2025 1:00 PM EDT - 04/01/2025 1:30 PM EDT Surgery ENDO O[facility], Endoscopy Room [facility] [address] [place] [phone] Amilcar Duran MD [address] [place] [address] ESOPHAGOGASTRODUODENOSCOPY (EGD), FLEXIBLE, TRANSORAL, DIAGNOSTIC 04/17/2025 10:30 AM EDT Office Visit Gastroenterology , [facility] [address] [place] [address] Rosendo Alcantara CRNP [address] [place] [address] Scheduled Procedures Name Priority Associated Diagnoses Date/Ti [...] Vaccine: 65+ Years (3 of 3 - PPSV23 or PCV20) 10/05/2024 10/05/2019, 08/17/2018 HbA1c 02/20/2025 08/22/2024, 12/23, 08/04/2023, Additional history exists Depression Monitoring 08/20/2025 08/20/2024 GFR 10/17/2025 10/17/2024, 08/23, 08/22/2024, Additional history exists Colonoscopy 02/28/2028 02/27/2018, 0 [...] 500 mg 500 mg, Intramuscular, ONCE, On Tue10/19/24 at 1145, For 1 doseIndications:Carcin chela of left breast metastatic to axillary lymph node (HCC) Given 10/19/2024 10:41 AM EST 500 mg Dorsogluteal Left Vitamin B-12 (Cyanocobalamin) inj 1,000 mcg 1,000 mcg, Intramuscular, ONCE, On Tue10/19/24 at 1130, For 1 doseIndications:B12 deficiency Given 10/19/2024 10:40 AM EST 1,000 mcg Deltoid Right Upper [...] Discussed due to patient's condition Care Teams Home Health Caregiver Relationship Specialty Start Date End Date Rowena Banks PA-C [address] [facility] [place] [address] PCP - General Physician Diver Pumper 06/01/22 documented as of this encounter
--- OUTSIDE RECORDS SUMMARY | 2025-04-07 11:50 | External Medical Summary | Summary of Care ---
Author Name Unknown Organization [facility] Address [address] [facility] [address] Phone [phone] Care Team Providers Care Crm Business Analyst Name Role Phone Rowena Banks PA-C Primary Care Provider [phone] [phone] Reason for Visit * Reason Onset Date Comments Appointment 11/09/2024 Encounter Details Date Type Department Care Team (Late st Contact Info) Description 11/09/2024 Telephone Hematology/Oncology [facility] Abdiaziz [place] 200 [facility] [place] [address] Marquis Christiansen MD [address] [facility] [place] [address] Appointment Allergies Active Allergy Reactions Criticality Noted [...] as of this encounter (statuses as of 11/09/2024) Medications COMBIGAN 0.2-0.5 % ophthalmic solution Instill [...] as of this encounter (statuses as of 11/09/2024) Active Problems Problem Noted Date Diagnosed Date [...] as of this encounter (statuses as of 11/09/2024) Resolved Problems Problem Noted Date Diagnosed Date [...] as of this encounter (statuses as of 11/09/2024) Immunizations Name Administration Dates Next Due COVID-19 [...] Telephone Encounter - Sandra Kenyon OSA - 11/09/2024 10:17 AM EST Pt is aware this has been moved * Telephone Encounter - Steven Hanna OSA - 11/09/2024 10:10 AM EST Marquis Christiansen MD Pt. Is calling and stated that she has an appointment for a B-12 injection today and she wants to change that appointment to 11/13/24. She will not be here today. If someone can call her back and assist her with changing that appointment it would be appreciated. documented in this encounter Plan of Treatment Upcoming Encounters Date Type Department Care Team (Latest Contact Info) Description 11/12/2024 8:00 AM EST Laboratory Laboratory, [facility] 226 [place] [phone] [facility] [address] 11/13/2024 11:15 AM EST Office Visit Hematology/Onco logy Patrick Suero [place] [address] [facility] [place] [address] Marquis Christiansen MD 200 [facility] [place] [address] 11/13/2024 11:45 AM EST Immunization/Inj ection Hematology/Onco logy Treatment, [place] [address] [place], [place] [phone] Nimo, Chair 5 Hem Onc [facility] 200 [address] [place] [address] 11/26/2024 9:00 AM EST Office Visit Cardiology, [facility] [address] [place] [address] Homar Ware PA-C [address] [place] [address] 11/29/2024 8:00 AM EST Laboratory Laboratory, [facility] [address] [place] [phone] [place], Laboratory [address] [place] [address] 11/30/2024 12:45 PM EST Immunization/Inj ection Hematology/Onco logy Treatment, [place] [address] [place] [phone] Nimo, Chair 7 Hem Onc Scenery [address] [place], [place] [address] 12/03/2024 8:00 AM EST Office Visit Orthopaedics [facility] [address] [place] [address] Javed Salas, [address] [place] [address] 12/11/2024 9:30 AM EST Pharmacy Pharmacy Hematology Oncology [facility] [place] [address] [place] [address] [facility] Hem/Onc [address] [place] [address] 04/01/2025 1:00 PM EDT Hospital Encounter ENDO [facility], Endoscopy Room [facility] [address] [place] [phone] Amilcar Duran MD [address] [place] [address] 04/01/2025 1:00 PM EDT - 04/01/2025 1:30 PM EDT Surgery ENDO [facility], Endoscopy Room [facility] [address] [place] [phone] Amilcar Duran MD [address] [place] [address] ESOPHAGOGASTRODUODENOSCOPY (EGD), FLEXIBLE, TRANSORAL, DIAGNOSTIC 04/17/2025 10:30 AM EDT Office Visit Gastroenterolog y, [facility] [address] [place] [address] Rosendo Alcantara CRNP [address] [place] [address] Scheduled Procedures Name Priority Associated Diagnoses Date/Ti [...] 08/22/2024, Additional history exists Colonoscopy 02/28/2028 02/27/2018, 07/2018, [...] Discussed due to patient's condition Care Teams Crm Business Analyst Relationship Specialty Start Date End Date Rowena Banks PA-C PCP - General Physician Flight Engineer Instructor 06/01/22 documented as of this encounter
--- OUTSIDE RECORDS SUMMARY | 2025-04-07 11:50 | External Medical Summary | Summary of Care ---
Author Name Unknown Organization [facility] Address [address] [facility] [address] Phone [phone] Care Team Providers Care Chemist Intern Name Role Phone Rowena Banks PA-C Primary Care Provider [phone] [phone] Reason for Visit * Reason Comments Medication Administration Vitamin B12 Encounter Details Date Type Department Care Team (Late st Contact Info) Description 11/02/2024 10:30 AM EST Immunization/In jection Hematology/Oncology Treatment, [place] [address] [place] [address] Nimo, Chair 5 Hem Onc Scenery [address] [place] [address] B12 deficiency* Allergies Active Allergy [...] as of this encounter (statuses as of 11/02/2024) Medications COMBIGAN 0.2-0.5 % ophthalmic solution Instill [...] as of this encounter (statuses as of 11/02/2024) Active Problems Problem Noted Date Diagnosed Date [...] as of this encounter (statuses as of 11/02/2024) Resolved Problems Problem Noted Date Diagnosed Date [...] as of this encounter (statuses as of 11/02/2024) Immunizations Name Administration Dates Next Due COVID-19 [...] Nursing Notes * Tameka Loco LPN - 11/02/2024 10:49 AM EST Pt arrived for vitamin b12 injection. Administered in R Deltoid. Pt tolerated well. To return in 4 weeks. Discharged in stable condition. documented in this encounter Plan of Treatment Upcoming Encounters Date Type Department Care Team (Latest Contact Info) Description 11/05/2024 9:45 AM EST Imaging Radiology [address] [address] 11/05/2024 11:00 AM EST Imaging Radiology [address], [address] [place] [address] 11/09/2024 11:00 AM EST Immunization/Inj ection Hematology/Oncol ogy Treatment, [address], [place] [phone] Nimo, Chair 5 Hem Onc [address] [place] [address] 11/13/2024 11:15 AM EST Office Visit Hematology/Oncol ogy [address] [place] [phone] Marquis Christiansen MD 200 [facility] [place] [address] 11/13/2024 11:45 AM EST Immunization/Inj ection Hematology/Oncol ogy Treatment, [address] [phone] Nimo, Chair 5 Hem Onc [facility] [address] [place] [address] [place] [address] 11/26/2024 9:00 AM EST Office Visit Cardiology, [address] [place] [address] Homar Ware PA-C [address] [place] [address] 11/29/2024 8:00 AM EST Laboratory Laboratory, [facility] [address] [place] [phone] [place], [address] [address] 11/30/2024 12:45 PM EST Immunization/Inj ection Hematology/Oncol ogy Treatment, [place] [address] [place] [address] Nimo, Chair 7 Hem Onc Scenery [address] [place] [address] 12/03/2024 8:00 AM EST Office Visit Orthopaedics [facility] [address] [place] [address] Javed Salas, [address] [place] [address] 12/11/2024 9:30 AM EST Pharmacy Pharmacy Hematology Oncology [facility] [address] [place] [address] [facility] [place], [facility] Hem/Onc [address] [place] [address] 04/01/2025 1:00 PM EDT Hospital Encounter ENDO [facility], Endoscopy Room [facility] [address] [place] [phone] Amilcar Duran MD [address] [place] [address] 04/01/2025 1:00 PM EDT - 04/01/2025 1:30 PM EDT Surgery ENDO [facility], Endoscopy Room [facility] [address] [place] [phone] Amilcar Duran MD [address] [place] [address] ESOPHAGOGASTRODUODENOSCOPY (EGD), FLEXIBLE, TRANSORAL, DIAGNOSTIC 04/17/2025 10:30 AM EDT Office Visit Gastroenterology , [facility] [address] [place] [address] Rosendo Alcantara CRNP [address] [place] [address] Scheduled Procedures Name Priority Associated Diagnoses Date/Ti [...] 1,000 mcg 1,000 mcg, Intramuscular, ONCE, On Tue11/02/24 at 1130, For 1 doseIndications:B12 deficiency Given 11/02/2024 10:37 AM EST 1,000 mcg Deltoid Right [...] Discussed due to patient's condition Care Teams Chemist Intern Relationship Specialty Start Date End Date Rowena Banks PA-C [address] [place] [phone] PCP - General Physician Developmental Services Worker 06/01/22 documented as of this encounter
--- OUTSIDE RECORDS SUMMARY | 2025-04-07 11:50 | External Medical Summary | Summary of Care ---
Author Name Unknown Organization [facility] Address [address] [facility] [place] [address] Phone [phone] Care Team Providers Care Production Cook Name Role Phone Rowena Bonilla PA-C Primary Care Provider [phone] Reason for Visit * Reason Comments eRx-Medication Refill Encounter Details Date Type Department Care Team (Late st Contact Info) Description 10/28/2024 [facility] [address] [place] [address] Rowena Bonilla PA-C 226 [facility] [place], [place] [phone] Chronic cough Allergies Active Allergy Reactions Criticality [...] as of this encounter (statuses as of 10/30/2024) Medications COMBIGAN 0.2-0.5 % ophthalmic solution Instill [...] day E11.9 100 Strip 11 022 Active VenueBookTouch UltraSoft LancetsIndicati ons:Type 2 diabetes mellitus with [...] tablet) before bedtime. 60 Tablet 5 4 3:01 PM EST 024 Active Gabapentin 100 MG [...] for Nausea. 30 Tablet 3 024 Active Serevent Diskus 50 MCG/ACT Inhalation [...] as of this encounter (statuses as of 10/30/2024) Active Problems Problem Noted Date Diagnosed Date [...] as of this encounter (statuses as of 10/30/2024) Resolved Problems Problem Noted Date Diagnosed Date [...] as of this encounter (statuses as of 10/30/2024) Immunizations Name Administration Dates Next Due COVID-19 [...] Telephone Encounter - Rowena Bonilla PA-C - 10/30/2024 9:11 AM ESTSigned Prescriptions: Disp Refills Serevent Diskus 50 MCG/ACT Inhalation Aero*60 Each5 Sig: Inhale 1 Puff by mouth in the morning and 1 Puff before bedtime. Authorizing Provider: ROWENA BONILLA * Telephone Encounter - Yee Enriquez RP - 10/30/2024 8:13 AM ESTPending Prescriptions: Disp Refills Serevent Diskus 50 MCG/ACT Inhalation Aero*60 Each5 Sig: Inhale 1 Puff by mouth in the morning and 1 Puff before bedtime. * Telephone Encounter - Yee Enriquez RPh - 10/30/2024 8:13 AM EST Pending Prescriptions: Disp Refills Serevent Diskus 50 MCG/ACT Inhalation Aero*60 Each5 Sig: Inhale 1 Puff by mouth in the morning and 1 Puff before bedtime. Visit date not found (in office), Visit date not found (telemedicine) Visit date not found If no future appointments scheduled, and last appointment is greater than a year ago, please schedule patient for a follow-up appointment Last date the medication was ordered: 09/04/24 Pharmacy: [id number] Is this request for a controlled substance?No Urine Drug Screen: Results for orders placed or performed in visit on 03/11/22 PAIN MANAGEMENT DRUG PANEL, URINE W/ INTERPRETATION Result Value Compliance Interpretation Based on the medication information provided: The presence of tramadol and o-desmethyltramadol is CONSISTENT with tramadol use. Amphetamines Screen, U Negative Benzodiazepines Screen, U Negative Cannabinoids Screen, U Negative Cocaine Metabolite Screen, U Negative Fentanyl Screen, U Negative Hydrocodone Screen, U Negative Methadone Metabolite Screen, U Negative Morphine/Codeine Screen, U Negative Oxycodone Screen, U Negative Valid Interpretation Normal Creatinine, U 136 Narrative Cutoff Concentrations: Drug Level Amphetamines 500 ng/mL Benzodiazepines 100 ng/mL Cannabinoids 50 ng/mL Cocaine Metabolite 150 ng/mL Fentanyl 1 ng/mL Hydrocodone / Hydromorphone 300 ng/mL Methadone Metabolite 100 ng/mL Morphine / Codeine 300 ng/mL Oxycodone / Oxymorphone 100 ng/mL Screening results are presumptive and can only be used for medical purposes. Confirmatory testing is available upon request. *Note: Due to a large number of results and/or encounters for the requested time period, some results have not been displayed. A complete set of results can be found in Results Review. Patient Phone Numbers Labs: Lab Results Component Value Date/Time CREAT 0.9 10/17/2024 08:04 AM CREAT 0.7 07/18/2020 11:20 AM POTASSIUM 4.0 10/17/2024 08:04 AM POTASSIUM 4.3 07/18/2020 11:20 AM TSH 1.49 09/27/2022 10:54 AM TSH 1.99 07/16/2020 02:11 PM LDL 167 (H) 01/16/2024 11:03 AM LDL 139 (H) 09/17/2019 09:58 AM LDL NOT APPLICABLE 09/17/2019 09:58 AM ALT 9 (L) 10/17/2024 08:04 AM ALT 27 07/16/2020 02:11 PM HGBA1C 4.9 08/22/2024 07:47 AM HGBA1C 5.3 04/17/2020 08:59 AM documented in this encounter Plan of Treatment Upcoming Encounters Date Type Department Care Team (Latest Contact Info) Description 11/02/2024 10:30 AM EST Immunization/Inj ection Hematology/Oncol ogy [facility] [place] [facility] [phone] iNmo, Chair 5 Hem Onc [facility] 200 [facility] [address] 11/05/2024 9:45 AM EST Imaging Radiology [address] 132 [facility] [place] [address] 11/05/2024 11:00 AM EST Imaging Radiology [address] 132 [facility] [place] [address] 11/13/2024 11:15 AM EST Office Visit Hematology/Oncol ogy [facility] 200 [facility] [place] [phone] Marquis Christiansen MD 200 [facility] [address] 11/26/2024 9:00 AM EST Office Visit Cardiology, [facility] 132 [facility] [place] [address] Homar Ware PA-C 132 [facility] [place] [address] 11/29/2024 8:00 AM EST Laboratory Laboratory, Brigid Peña 226 [place] [phone] [facility] [address] [facility] [place] [address] 11/30/2024 12:45 PM EST Immunization/Inj ection Hematology/Oncol ogy Treatment, [place] [address] [place] [phone] Nimo, Chair 7 Hem Onc Scenery [address] [place] [address] 12/03/2024 8:00 AM EST Office Visit Orthopaedics [facility] [address] [place] [address] Javed Salas DO [address] [place] [address] 12/11/2024 9:30 AM EST Pharmacy Pharmacy Hematology Oncology [facility] [address] [place] [address] [facility], [facility] Hem/Onc [address] [place] [address] 04/01/2025 1:00 PM EDT Hospital Encounter ENDO [facility], Endoscopy Room [facility] [address] [place] [phone] Amilcar Duran MD [address] [place] [address] 04/01/2025 1:00 PM EDT - 04/01/2025 1:30 PM EDT Surgery ENDO OSS, Endoscopy Room [facility] [address] [place] [address] Amilcar Duran MD [address] [place] [address] ESOPHAGOGASTRODUODENOSCOPY (EGD), FLEXIBLE, TRANSORAL, DIAGNOSTIC 04/17/2025 10:30 AM EDT Office Visit Gastroenterology , [facility] [address] [address] Rosendo Alcantara CRNP [address] [place] [address] Scheduled Procedures Name Priority Associated Diagnoses Date/Ti [...] PCV20) 10/05/2024 10/05/2019, 08/17/2018 HbA1c 02/20/2025 08/22/2024, 02/04/2024, 08/04/2023, Additional history exists Depression Monitoring 08/20/2025 08/20/2024 GFR 10/17/2025 10/17/2024, 08/23, 08/22/2024, Additional history exists Colonoscopy 02/28/2028 02/27/2018, 040 [...] Discussed due to patient's condition Care Teams Production Cook Relationship Specialty Start Date End Date Rowena Bonilla PA-C [address] [facility] [place] [address] PCP - General Physician Benefits Analyst 06/01/22 documented as of this encounter
--- OUTSIDE RECORDS SUMMARY | 2025-04-07 11:50 | External Medical Summary | Summary of Care ---
Author Name Unknown Organization [facility] Address [address] [facility] [place] [address] Phone [phone] Care Team Providers Care Capability Lead Name Role Phone Rowena Banks PA-C Primary Care Provider [phone] Reason for Visit * Reason Onset Date Comments Medication Refill 10/28/2024 Encounter Details Date Type Department Care Team (Late st Contact Info) Description 10/28/2024 Refill Hematology/Oncology [facility] [place] [address] [facility] [place] [address] Marquis Christiansen MD [address] [facility] [place] [address] Carcinoma of left breast metastatic to axillary [...] as of this encounter (statuses as of 10/29/2024) Medications COMBIGAN 0.2-0.5 % ophthalmic solution Instill [...] 60 Tablet 5 4 3:01 PM EST 08/27/20 24 Active Serevent Diskus 50 MCG/ACT Inhalation [...] Pain, Moderate. 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),Malignant neoplasm of upper-outer quadrant of left breast in female, estrogen receptor positive (HCC) TAKE ONE TABLET BY MOUTH EVERY SIX HOURS NEEDED FOR NAUSEA 30 Tablet 3 08/30/20 24 024 Discontin ued(Refil l) Hospital, Clinic, or Other Facility Administered Medication Ordered Dose Route Frequency Start Date End Date Status albuterol sulfate (PROVENTIL) (2.5 MG/3ML) 0.083% inhalation solution 2.5 mgIndications:Restrictive lung disease,SOB (shortness of breath) 2.5 mg NEBULIZER Q4H PRN 11/07/2017 Act roe documented as of this encounter (statuses as of 10/29/2024) Active Problems Problem Noted Date Diagnosed Date [...] as of this encounter (statuses as of 10/29/2024) Resolved Problems Problem Noted Date Diagnosed Date [...] as of this encounter (statuses as of 10/29/2024) Immunizations Name Administration Dates Next Due COVID-19 [...] Telephone Encounter - Elizabeth Denise LPN - 10/29/2024 7:33 AM ESTPending Prescriptions: Disp Refills Ondansetron HCl 4 MG Oral Tablet (Zofran) 30 Tab*3 * Telephone Encounter - Elizabeth Denise LPN - 10/29/2024 7:32 AM EST Refill request for Ondansetron Hcl 4 mg pended below: Last Refill: 08/30/2024 Last seen: 07/10/2024 Next Appt.:11/13/2024 Requestor: Patient documented in this encounter Plan of Treatment Upcoming Encounters Date Type Department Care Team (Latest Contact Info) Description 11/02/2024 10:30 AM EST Immunization/Inj ection Hematology/Oncol ogy Treatment, [place] [address] [place] [address] Nimo, Chair 5 Hem Onc Scen[place] [address] [place] [address] 11/05/2024 9:45 AM EST Imaging Radiology [facility] 132 [facility] [place] [address] 11/05/2024 11:00 AM EST Imaging Radiology [address], [place] 132 [facility] [place] [address] 11/13/2024 11:15 AM EST Office Visit Hematology/Oncol ogy [facility] [address] [place] [phone] Marquis Christiansen MD 200 [facility] [place] [address] 11/15/2024 9:10 AM EST Laboratory Laboratory, [address] [phone] [address] [address] 11/16/2024 12:45 PM EST Immunization/Inj ection Hematology/Oncol ogy [facility], [place] [address] [place], [place] [phone] Nimo, Chair 7 Hem Onc [facility] [address] [facility] [place] [address] 11/26/2024 9:00 AM EST Office Visit Cardiology, [facility] [address] [facility] [place] [address] Homar Ware PA-C [address] [place] [address] 12/03/2024 8:00 AM EST Office Visit Orthopaedics [facility] 132 [facility] [place] [address] Javed Salas S, DO [address] [place] [address] 12/11/2024 9:30 AM EST Pharmacy Pharmacy Hematology Oncology [facility], [place] [address] [place] [address] [facility], [facility] Hem/Onc [address] [place] [address] 04/01/2025 1:00 PM EDT Hospital Encounter ENDO [facility], Endoscopy Room [facility] [address] [place] [phone] Amilcar Duran MD [address] [place] [address] 04/01/2025 1:00 PM EDT - 04/01/2025 1:30 PM EDT Surgery ENDO [facility], Endoscopy Room [facility] [address] [place] [phone] Amilcar Duran MD [address] [place] [address] ESOPHAGOGASTRODUODENOSCOPY (EGD), FLEXIBLE, TRANSORAL, DIAGNOSTIC 04/17/2025 10:30 AM EDT Office Visit Gastroenterology , [facility] [address] [place] [address] Rosendo Alcantara CRNP [address] [place] [address] Scheduled Procedures Name Priority Associated Diagnoses Date/Ti [...] 08/22/2024, Additional history exists Colonoscopy 02/28/2028 02/27/2018, 0407/2018, [...] Discussed due to patient's condition Care Teams Capability Lead Relationship Specialty Start Date End Date Rowena Banks PA-C [address] [place] [address] PCP - General Physician Internet Designer 06/01/22 documented as of this encounter
--- OUTSIDE RECORDS SUMMARY | 2025-04-07 11:50 | External Medical Summary | Summary of Care ---
Author Name Unknown Organization [facility] Address [address] [facility] [place] [address] Phone [phone] Care Team Providers Care World Travel Counselor Name Role Phone Rowena Banks PA-C Primary Care Provider [phone] Reason for Visit * Reason Comments Outpatient Testing Encounter Details Date Type Department Care Team (Late st Contact Info) Description 11/12/2024 8:00 AM EST Laboratory Laboratory, [place] [facility] [address] [facility] [address] [facility] [address] [place], [place] [phone] Malignant neoplasm of upper-outer quadrant of left [...] as of this encounter (statuses as of 11/12/2024) Medications COMBIGAN 0.2-0.5 % ophthalmic solution Instill [...] as of this encounter (statuses as of 11/12/2024) Active Problems Problem Noted Date Diagnosed Date [...] as of this encounter (statuses as of 11/12/2024) Resolved Problems Problem Noted Date Diagnosed Date [...] as of this encounter (statuses as of 11/12/2024) Immunizations Name Administration Dates Next Due COVID-19 [...] Department Care Team (Latest Contact Info) Description 11/13/2024 11:15 AM EST Office Visit [facility] [place] [address] [place] [phone] Marquis Christiansen MD 200 [facility] [place] [address] 11/13/2024 11:45 AM EST Immunization/Inj ection Hematology/Onco logy [facility], [place] [facility] [phone] Nimo, Chair 5 Hem On[address] [place] [address] 11/26/2024 9:00 AM EST Office Visit Cardiology, [facility] [address] [facility] [place] [address] Homar Ware PA-C [address] [place] [address] 11/29/2024 8:00 AM EST Laboratory Laboratory, [address] [facility] [place] [phone] [facility] 226 [facility] [place] [address] 11/30/2024 12:45 PM EST Immunization/Inj ection Hematology/Onco logy Treatment, [place] 200 [facility] [phone] Nimo, Chair 7 Hem Onc [facility] 200 [facility] [place] [address] 12/03/2024 8:00 AM EST Office Visit Orthopaedics [facility] [address] [place] [address] Javed Salas, [address] [place] [address] 12/11/2024 9:30 AM EST Pharmacy Pharmacy Hematology Oncology [facility] [address] [place] [address] [facility], [facility] Hem/Onc [address] [place] [address] 04/01/2025 1:00 PM EDT Hospital Encounter ENDO [facility], Endoscopy Room [facility] [address] [place] [phone] Amilcar Duran MD [address] [place] [address] 04/01/2025 1:00 PM EDT - 04/01/2025 1:30 PM EDT Surgery ENDO [facility], Endoscopy Room [facility] [address] [place] [phone] Amilcar Duran MD [address] [place] [address] ESOPHAGOGASTRODUODENOSCOPY (EGD), FLEXIBLE, TRANSORAL, DIAGNOSTIC 04/17/2025 10:30 AM EDT [facility] [address] [place] [address] Rosendo Alcantara CRNP [address] [place] [address] Pending Results Name Type Priority Associated Diagnoses Date /Time CBC WITH WBC DIFFERENTIAL Lab STAT Malignant neoplasm of upper-outer quadrant of left breast in female, estrogen receptor positive (HCC) 11/12/2024 8:00 AM EST COMPREHENSIVE METABOLIC PANEL Lab STAT Malignant neoplasm of upper-outer quadrant of left breast in female, estrogen receptor positive (HCC) 11/12/2024 8:00 AM EST PHOSPHORUS Lab STAT Malignant neoplasm of upper-outer quadrant of left breast in female, estrogen receptor positive (HCC) 11/12/2024 8:00 AM EST CBC Lab STAT Malignant neoplasm of upper-outer quadrant of left breast in female, estrogen receptor positive (HCC) 11/12/2024 8:00 AM EST DIFFERENTIAL, AUTOMATED Lab STAT Malignant neoplasm of upper-outer quadrant of left breast in female, estrogen receptor positive (HCC) 11/12/2024 8:00 AM EST Scheduled Procedures Name Priority Associated [...] Discussed due to patient's condition Care Teams World Travel Counselor Relationship Specialty Start Date End Date Rowena Banks PA-C PCP - General Physician [employer] 06/01/22 documented as of this encounter
--- OUTSIDE RECORDS SUMMARY | 2025-04-07 11:50 | External Medical Summary | Summary of Care ---
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 06/09/20 20 Active Sleek Africa MagazineTouch Verio w/Device KitIndications:T ype 2 diabetes mellitus with hemoglobin A1c goal of less than 7.0% (HCC) Use up to twice times a day E11.9 1 Kit 04/15/20 22 Active S[employer]ek Africa MagazineTouch Verio In Vitro Strip (Glucose Blood)Indication s:Type 2 diabetes mellitus with hemoglobin A1c goal of less than 7.0% (HCC) Use up to 2 times a day E11.9 100 Strip 11 04/15/20 22 Active Sleek Africa MagazineTouch UltraSoft LancetsIndicatio ns:Type 2 diabetes mellitus with [...] 10:30 AM EST Immunization[facility]Inj e[facility] [place] [address] [place] [phone] Nimo, Chair 5 Hem Onc [address] [place] [address] 11/05/2024 9:45 AM EST Imaging Radiology [address] [facility] [place] [address] 11/05/2024 11:00 AM EST Imaging Radiology [address] [facility] [place] [address] 11/13/2024 11:15 AM EST Office Visit Hematology/Oncol ogy [address] [place] [phone] Marquis Christiansen MD [address] [place] [address] 11/15/2024 9:10 AM EST Laboratory Laboratory, [facility] [address] [place] [phone] [place], [address] [address] 11/16/2024 12:45 PM EST Immunization/Inj ection Hematology/Oncol ogy Treatment, [place] [address] [place] [phone] Nimo, Chair 7 Hem Onc Scenery [address] [place] [address] 11/26/2024 9:00 AM EST Office Visit Cardiology, [facility] [address] [facility] [place] [address] Homar Ware, PA-C [address] [place] [address] 12/03/2024 8:00 AM EST Office Visit Orthopaedics [facility] [address] [facility] [place] [address] Javed Salas S, DO [address] [facility] [place] [address] 12/11/2024 9:30 AM EST Pharmacy Pharmacy Hematology Oncology [facility] [address] [place] [address] [facility] Hem/Onc [address] [place] [address] 04/01/2025 1:00 PM EDT Hospital Encounter ENDO [facility], Endoscopy Room [facility] [address] [place] [address] Amilcar Duran MD [address] [place] [address] 04/01/2025 1:00 PM EDT - 04/01/2025 1:30 PM EDT Surgery ENDO [facility], Endoscopy Room [facility] [address] [place] [phone] Amilcar Duran MD [address] [place] [address] ESOPHAGOGASTRODUODENOSCOPY (EGD), FLEXIBLE, TRANSORAL, DIAGNOSTIC 04/17/2025 10:30 AM EDT Office Visit Gastroenterology , [facility] [address] [place] [address] Rosendo Alcantara CRNP [address] [place] [address] Scheduled Procedures Name Priority Associated Diagnoses Date/Ti [...] Discussed due to patient's condition Care Teams Safe Expert Relationship Specialty Start Date End Date Rowena Banks PA-C [address] [facility] [place] [address] PCP - General Physician [employer] Certified Internetwork Expert 06/01/22 documented as of this encounter
--- OUTSIDE RECORDS SUMMARY | 2025-04-07 11:50 | External Medical Summary ---
Author Name Unknown Address Unknown Organization [id number]:[facility] [place] - [address] [facility] [place] [address] Laboratory Report Ordering Provider Test Date Status DINESH MOBLEY 11/12/2024 08:00:29 Final Observation Date Value Abnormality Reference (Units ) Status SYNC LEUKOCYTES IN BLOOD BY AUTOMATED COUNT 11/12/2024 08:00:29 3.60 Below low normal 4.00-10.80 (K/uL) Final Segs 11/12/2024 08:00:29 66.4 40.0-75.0 (%) Final Lymphs % 11/12/2024 08:00:29 22.2 18.0-42.0 (%) Final Monos 11/12/2024 08:00:29 7.5 1.0-11.0 (%) Final Eosinophils 11/12/2024 08:00:29 2.2 0.0-6.0 (%) Final Basos 11/12/2024 08:00:29 1.4 0.0-2.0 (%) Final Immature Granulocyte, Percent 11/12/2024 08:00:29 0.3 0.0-2.0 (%) Final Absolute Segs 11/12/2024 08:00:29 2.39 1.80-7.70 (K/uL) Final Lymphs, absolute 11/12/2024 08:00:29 0.80 Below low normal 1.00-4.80 (K/ul) Final Monos, Abs 11/12/2024 08:00:29 0.27 0.00-1.10 (K/uL) Final Eos, Abs 11/12/2024 08:00:29 0.08 0.00-0.70 (K/uL) Final Basos, Abs 11/12/2024 08:00:29 0.05 0.00-0.20 (K/uL) Final Immature Granulocytes, Number 11/12/2024 08:00:29 0.01 0.00-0.20 (K/uL) Final Performing Location [facility] [place] - [facility] [address] [place] [id number]
--- OUTSIDE RECORDS SUMMARY | 2025-04-07 11:51 | External Medical Summary | Summary of Care ---
Author Name Unknown Organization [facility] Address [address] [facility] [place] [address] Phone [phone] Care Team Providers Care Fundraiser Name Role Phone Rowena Banks PA-C Primary Care Provider +1 -[phone] Encounter Details Date Type Department Care Team (Late st Contact Info) Description 10/19/2024 Orders Only Hematology/Oncology [facility] [place] 200 [facility] [place] [phone] Marquis Christiansen MD 200 [facility] [place] [address] B12 deficiency* Allergies Active Allergy Reactions Criticality [...] as of this encounter (statuses as of 10/19/2024) Medications COMBIGAN 0.2-0.5 % ophthalmic solution Instill [...] (1 tablet) before bedtime. 60 Tablet 5 09/28/2024 2:13 PM EST 08/27/20 24 Active Ondansetron HCl [...] as of this encounter (statuses as of 10/19/2024) Active Problems Problem Noted Date Diagnosed Date History of small bowel obstruction 02/15/2023 Hypertensive [...] as of this encounter (statuses as of 10/19/2024) Resolved Problems Problem Noted Date Diagnosed Date [...] as of this encounter (statuses as of 10/19/2024) Immunizations Name Administration Dates Next Due COVID-19 [...] Progress Notes * Marquis Christiansen MD - 10/19/2024 7:56 AM EST Blood workup done on 10/17/2024: -B12 level --> 180 which is on the lower side -BUN/Creat: 13/0.9, normal LFT other than alkaline phosphatase of 177. -Ferritin level --> 70 -folic acid--> 10.7 -Serum iron 79, TIBC 370, iron saturation 21%. She has chronically elevated alkaline phosphatase since 2019. 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 Currently she is on Faslodex and the Abemacilcib since March 2024 and Xgeva. Vitamin B12 deficiency noted. I would like to start Vitamin B12 injection 1000 microgram once a week x4 followed by 1000 microgram every monthly. documented in this encounter Plan of Treatment Upcoming Encounters Date Type Department Care Team (Latest Contact Info) Description 10/19/2024 9:30 AM EST Pharmacy Pharmacy Hematology Oncology [address] [address] [facility], [facility] Hem/Onc [address] [place] [address] 10/19/2024 10:45 AM EST Immunization/In jection Hematology/Oncol ogy [facility] [address] 11/05/2024 9:45 AM EST Imaging Radiology [address] [place] [address] 11/05/2024 11:00 AM EST Imaging Radiology [address] [place] [address] 11/13/2024 11:15 AM EST Office Visit Hematology/Oncol ogy [address] [place] [address] Marquis Christiansen MD [address] [place] [address] [place] [address] 11/16/2024 12:45 PM EST Immunization/In jection Hematology/Oncol ogy Treatment, [place] [address] [place] [phone] Nimo, Chair 7 Hem Onc Scenery [address] [place] [address] 11/26/2024 9:00 AM EST Office Visit Cardiology, [facility] [address] [place] [address] Homar Ware PA-Jun [address] [place] [address] 12/03/2024 8:00 AM EST Office Visit Orthopaedics [facility] [address] [place] [address] Javed Salas DO [address] [place] [address] 04/01/2025 1:00 PM EDT Hospital Encounter ENDO [facility], Endoscopy Room [facility] [address] [place] [phone] Amilcar Duran MD [address] [place] [address] 04/01/2025 1:00 PM EDT - 04/01/2025 1:30 PM EDT Surgery ENDO [facility], Endoscopy Room [facility] [address] [place] [phone] Amilcar Duran MD [address] [place] [address] ESOPHAGOGASTRODUODENOSCOPY (EGD), FLEXIBLE, TRANSORAL, DIAGNOSTIC 04/17/2025 10:30 AM EDT Office Visit Gastroenterology , [facility] [address] [place] [address] Rosendo Alcantara CRNP [address] [place] [address] Scheduled Procedures Name Priority Associated Diagnoses Date/Ti [...] Discussed due to patient's condition Care Teams Fundraiser Relationship Specialty Start Date End Date Rowena Banks PA-C [address] [facility] [place] [place] [address] PCP - General Physician Unit Manager Rn 06/01/22 documented as of this encounter
--- OUTSIDE RECORDS SUMMARY | 2025-04-07 11:51 | External Medical Summary ---
Author Name Unknown Address Unknown Organization [id number]:LABORATORY [facility] [place] - [address] [place] [address] Laboratory Report Ordering Provider Test Date Status DINESH MOBLEY 10/17/2024 08:04:23 Final Observation Date Value Abnormality Reference (Units ) Status Ferritin 10/17/2024 08:04:23 70 13-150 (ng /mL) Final Postmenopausal women have hi gher ferritin levels than pre-menopausal women. The above reference interval is based on pre-menopausal women. Performing Location [facility] - [address] [place] [address]
--- OUTSIDE RECORDS SUMMARY | 2025-04-07 11:51 | External Medical Summary ---
Author Name Unknown Address Unknown Organization K01:LABORATORY [facility] - [address] [place] [address] Laboratory Report Ordering Provider Test Date Status DINESH MOBLEY 10/17/2024 08:04:23 Final Observation Date Value Abnormality Reference (Units ) Status Phosphate 10/17/2024 08:04:23 3.1 2.5-4.8 (m g/dL) Final Performing Location [facility] - [address] [place] [address]
--- OUTSIDE RECORDS SUMMARY | 2025-04-07 11:51 | External Medical Summary | Summary of Care ---
Author Name Unknown Organization [facility] Address [address] [facility] [place] [address] Phone [phone] Care Team Providers Care Wheel Filler Name Role Phone Rowena Banks PA-C Primary Care Provider +1 -[phone] Reason for Visit * Reason Comments Medication Administration Vitamin b12 Encounter Details Date Type Department Care Team (Late st Contact Info) Description 10/26/2024 10:30 AM EST Immunization/In jection Hematology/Oncology Treatment, [place] [address] [place] [address] Nimo, Chair 5 Hem Onc Scenery [address] [place] [address] B12 deficiency* Allergies Active Allergy [...] AM EST Immunization/Inj ection Hematology/Oncol ogy Treatment, [place] [address] [place] [phone] Nimo, Chair [address] [place] [address] 11/05/2024 9:45 AM EST Imaging Radiology [address], [place] [address] [place] [address] 11/05/2024 11:00 AM EST Imaging Radiology [address], [place] 132 [place] [address] 11/13/2024 11:15 AM EST Office Visit Hematology/Oncol ogy [facility] 200 [facility] [place] [phone] Marquis Christiansen MD 200 [facility] [place] [address] 11/15/2024 9:10 AM EST Laboratory [facility], [facility] [place] [phone] [place], [address] [address] 11/16/2024 12:45 PM EST Immunization/Inj ection Hematology/Oncol ogy Treatment, [place] [address] [place] [phone] Park, Chair 7 Hem Onc Scenery [address] [place] [address] 11/26/2024 9:00 AM EST Office Visit Cardiology, [facility] [address] [place] [address] Homar Ware PA-C [address] [place] [address] 12/03/2024 8:00 AM EST Office Visit Orthopaedics [facility] [address] [place] [address] Javed Salas DO [address] [place] [address] 12/11/2024 9:30 AM EST Pharmacy Pharmacy Hematology Oncology [facility] [address] [place] [address] [facility], [facility] Hem/Onc [address] [place] [address] 04/01/2025 1:00 PM EDT Hospital Encounter ENDO [facility], Endoscopy Room [facility] [address] [place] [phone] Amilcar Duran MD [address] [place] [address] 04/01/2025 1:00 PM EDT - 04/01/2025 1:30 PM EDT Surgery ENDO [facility], Endoscopy Room [facility] [address] [place] [phone] Amilcar Duran MD [address] [place] [address] ESOPHAGOGASTRODUODENOSCOPY (EGD), FLEXIBLE, TRANSORAL, DIAGNOSTIC 04/17/2025 10:30 AM EDT Office Visit Gastroenterology , [facility] [address] [place] [address] Rosendo Alcantara CRNP [address] [place] [address] Scheduled Procedures Name Priority Associated Diagnoses Date/Ti [...] Discussed due to patient's condition Care Teams Wheel Filler Relationship Specialty Start Date End Date Rowena Banks PA-C [address] [place] [address] PCP - General Physician Plate Maker Zinc 06/01/22 documented as of this encounter
--- OUTSIDE RECORDS SUMMARY | 2025-04-07 11:51 | External Medical Summary | Summary of Care ---
Author Name Unknown Organization [facility] Address [address] [facility] [address] Phone [phone] Care Team Providers Care Planning Specialist Name Role Phone Rowena Banks PA-C Primary Care Provider +1 [phone] Reason for Visit * Reason Comments Outpatient Testing Encounter Details Date Type Department Care Team (Late st Contact Info) Description 10/17/2024 7:50 AM EST Laboratory Laboratory, [facility] [address] [place] [phone] [place], Laboratory [address] [place] [address] Malignant neoplasm of upper-outer quadrant of left [...] as of this encounter (statuses as of 10/17/2024) Medications ROME 0.2-0.5 % ophthalmic solution Instill [...] as of this encounter (statuses as of 10/17/2024) Active Problems Problem Noted Date Diagnosed Date [...] as of this encounter (statuses as of 10/17/2024) Resolved Problems Problem Noted Date Diagnosed Date [...] as of this encounter (statuses as of 10/17/2024) Immunizations Name Administration Dates Next Due COVID-19 [...] 9:30 AM EST Pharmacy Pharmacy Hematology Oncology [facility] [address] [place] [address] [facility], [facility] Hem/Onc [address] [place] [address] 10/19/2024 10:45 AM EST Immunization/In jection Hematology/Oncol ogy Treatment, [place] [address] [place] [address] 11/05/2024 9:45 AM EST Imaging Radiology [address], [place] 132 [facility] [place] [address] 11/05/2024 11:00 AM EST Imaging Radiology [address], [place] 132 [facility] [place] [address] 11/13/2024 11:15 AM EST Office Visit Hematology/Oncol ogy [facility] 200 [facility] [place] [phone] Marquis Christiansen MD [address] [facility] [address] 11/26/2024 9:00 AM EST Office Visit Cardiology, [facility] [address] [place] [address] Homar Ware PAMerlene [address] [place] [address] 12/03/2024 8:00 AM EST Office Visit Orthopaedics [facility] [address] [place] [address] Javed Salas S, DO [address] [place] [address] 04/01/2025 1:00 PM EDT Hospital Encounter ENDO [facility], Endoscopy Room [facility] [address] [place] [address] Amilcar Duran MD [address] [place] [address] 04/01/2025 1:00 PM EDT - 04/01/2025 1:30 PM EDT Surgery ENDO [facility], Endoscopy Room [facility] [address] [place] [address] Amilcar Duran MD [address] [place] [address] ESOPHAGOGASTRODUODENOSCOPY (EGD), FLEXIBLE, TRANSORAL, DIAGNOSTIC 04/17/2025 10:30 AM EDT Office Visit Gastroenterology , [facility] [address] [place] [address] Rosendo Alcantara CRNP [address] [place] [address] Pending Results Name Type Priority Associated Diagnoses Date /Time CBC WITH WBC DIFFERENTIAL Lab STAT Malignant neoplasm of upper-outer quadrant of left breast in female, estrogen receptor positive (HCC) 10/17/2024 8:04 AM EST COMPREHENSIVE METABOLIC PANEL Lab STAT Malignant neoplasm of upper-outer quadrant of left breast in female, estrogen receptor positive (HCC) 10/17/2024 8:04 AM EST PHOSPHORUS Lab STAT Malignant neoplasm of upper-outer quadrant of left breast in female, estrogen receptor positive (HCC) 10/17/2024 8:04 AM EST CBC Lab STAT Malignant neoplasm of upper-outer quadrant of left breast in female, estrogen receptor positive (HCC) 10/17/2024 8:04 AM EST DIFFERENTIAL, AUTOMATED Lab STAT Malignant neoplasm of upper-outer quadrant of left breast in female, estrogen receptor positive (HCC) 10/17/2024 8:04 AM EST Scheduled Procedures Name Priority Associated [...] history exists Depression Monitoring 08/20/2025 08/20/2024 GFR 09/19/2025 09/19/2024, 12/2023, 08/06/2024, Additional history exists Colonoscopy 02/28/2028 02/27/2018, 07/2018, [...] Discussed due to patient's condition Care Teams Planning Specialist Relationship Specialty Start Date End Date Rowena Banks PA-C [address] [place] [facility] [place] [address] PCP - General Physician Hydroelectric Plant Structural Engineer 06/01/22 documented as of this encounter
--- OUTSIDE RECORDS SUMMARY | 2025-04-07 11:51 | External Medical Summary ---
Author Name Unknown Address Unknown Organization K01:LABORATORY [facility] [place] - [address] [place] [address] Laboratory Report Ordering Provider Test Date Status LEANDRADINESH 10/17/2024 08:04:23 Final Observation Date Value Abnormality Reference (Units ) Status Folic Acid 10/17/2024 08:04:23 10.7 >4.5 (ng/ mL) Final Performing Location [facility] - [address] [place] [address]
--- OUTSIDE RECORDS SUMMARY | 2025-04-07 11:51 | External Medical Summary ---
Author Name Unknown Address Unknown Organization K01:[facility] [place] [address] [facility] [place] [address] Laboratory Report Ordering Provider Test Date Status DINESH MOBLEY 10/17/2024 08:04:23 Final Observation Date Value Abnormality Reference (Units ) Status BUN 10/17/2024 08:04:23 13 6-20 (mg/dL) Final Creatinine 10/17/2024 08:04:23 0.9 0.5-1.0 (mg/dL) Final Glomerular filtration rate/1.73 sq M.predicted [Volume Rate/Area] in Serum, Plasma or Blood by Creatinine-based formula (CKD-EPI) 10/17/2024 08:04:23 75 >=60 (mL/min) Final eGFR is calculated based on the CKD-EPI 2020 equation. Sodium 10/17/2024 08:04:23 142 135-146 (m mol/L) Final Potassium 10/17/2024 08:04:23 4.0 3.5-5.1 (m mol/L) Final Cl 10/17/2024 08:04:23 107 98-107 (mm ol/L) Final CO2 10/17/2024 08:04:23 24 22-32 (mmo l/L) Final Anion gap 10/17/2024 08:04:23 11 7-15 (mmol /L) Final Glucose 10/17/2024 08:04:23 128 Above high normal 70 -120 (mg/dL) Final Albumin 10/17/2024 08:04:23 4.1 3.8-5.0 (g /dL) Final AST (Aspartate aminotransferase) 10/17/2024 08:04:23 18 10-35 (U/L) Fin al Alk Phos 10/17/2024 08:04:23 177 Above high normal 35 -130 (U/L) Final Bilirubin, Total 10/17/2024 08:04:23 0.5 <=1 .2 (mg/dL) Final Calcium 10/17/2024 08:04:23 8.5 8.4-10.2 ( mg/dL) Final Protein 10/17/2024 08:04:23 6.6 6.0-8.3 (g /dL) Final ALT (Alanine aminotransferase) 10/17/2024 08:04:23 9 Below low normal 10-35 (U/L) Final Performing Location [facility] [place] [address] [facility] [address]
--- OUTSIDE RECORDS SUMMARY | 2025-04-07 11:51 | External Medical Summary | Summary of Care ---
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) Procedures IA INJECTION, FULVESTRANT Marquis Christiansen MD [address] [place] [address] Phone: tel: fax: Hematology/Oncology Treatment, [address] [address] Phone: tel: fax: Referral ID Status Reason Start Date Expiration Date V isits Requested Visits Authorized [id number] Authorized 03/15/2024 11/20/2099 [id number] Encounter Details Date Type Department Care Team (Late st Contact Info) Description 10/19/2024 10:45 AM EST Immunization/I njection Hematology/Oncology Treatment, [address] [address] Carcinoma of left breast metastatic [...] day E11.9 1 Kit 04/15/20 22 Active Teamwork [employer] Verio In Vitro Strip (Glucose Blood)Indication s:Type 2 diabetes mellitus with hemoglobin A1c goal of less than 7.0% (HCC) Use up to 2 times a day E11.9 100 Strip 11 04/15/20 22 Active Teamwork [employer] UltraSoft LancetsIndicatio ns:Type 2 diabetes mellitus with [...] Department Care Team (Latest Contact Info) Description 10/26/2024 10:30 AM EST [facility] [address] [facility] [address] [address] [address] [place] [address] N[place], Chair 5 Hem On[address] [place] [address] 11/05/2024 9:45 AM EST Imaging Radiology [address] 132 [facility] [place] [address] 11/05/2024 11:00 AM EST Imaging Radiology [address] 132 [facility] [place] [address] 11/13/2024 11:15 AM EST Office Visit Hematology/Oncol ogy [address] [place] [phone] Marquis Christiansen MD [address] [place], [place] [address] 11/16/2024 12:45 PM EST Immunization/In jection Hematology/Oncol ogy Treatment, [place] [address] [place], [place] [phone] [place], Chair 7 Hem Onc Scenery [address] [place], [place] [address] 11/26/2024 9:00 AM EST Office Visit Cardiology, [facility] [address] [place] [address] Homar Ware PA-C [address] [place] [address] 12/03/2024 8:00 AM EST Office Visit Orthopaedics [facility] [address] [place] [address] Javed Salas, [address] [place] [address] 04/01/2025 1:00 PM EDT Hospital Encounter ENDO [facility], Endoscopy Room [facility] [address] [place] [phone] Amilcar Duran MD [address] [place] [address] 04/01/2025 1:00 PM EDT - 04/01/2025 1:30 PM EDT Surgery ENDO [facility], Endoscopy Room [facility] [address] [place] [phone] Amilcar Duran MD [address] [place] [address] ESOPHAGOGASTRODUODENOSCOPY (EGD), FLEXIBLE, TRANSORAL, DIAGNOSTIC 04/17/2025 10:30 AM EDT Office Visit Gastroenterology , [facility] [address] [place] [address] Rosendo Alcantara CRNP [address] [place] [address] Scheduled Procedures Name Priority Associated Diagnoses Date/Ti [...] Discussed due to patient's condition Care Teams Compensator Relationship Specialty Start Date End Date Rowena Banks PA-C [address] [place] [address] PCP - General Physician Robot Designer 06/01/22 documented as of this encounter
--- OUTSIDE RECORDS SUMMARY | 2025-04-07 11:51 | External Medical Summary ---
Author Name Unknown Address Unknown Organization K01:[place]ORY [facility] [place] [facility] [address] [facility] [address] [place] [address] Laboratory Report Ordering Provider Test Date Status DINESH MOBLEY 10/17/2024 08:04:23 Final Observation Date Value Abnormality Reference (Units ) Status WBC, Total 10/17/2024 08:04:23 3.04 Below low normal 4.00-10.80 (K/uL) Final RBC 10/17/2024 08:04:23 2.62 3.85-5.15 (M/uL) Final Hemoglobin 10/17/2024 08:04:23 9.2 Below low normal 12.0-15.3 (g/dL) Final HCT 10/17/2024 08:04:23 28.9 Below low normal 36.0-45.2 (%) Final MCV 10/17/2024 08:04:23 110.3 81.5-97.5 (fL) Final MCH 10/17/2024 08:04:23 35.1 27.0-34.0 (pg) Final MCHC 10/17/2024 08:04:23 31.8 32.0-36.0 (g/dL) Final RDW 10/17/2024 08:04:23 14.4 11.5-15.5 (%) Final Platelets 10/17/2024 08:04:23 133 Below low normal 140-400 (K/uL) Final MPV 10/17/2024 08:04:23 10.4 6.6-11.1 (fL) Final Nucleated erythrocytes/100 leukocytes [Ratio] in Blood by Automated count 10/17/2024 08:04:23 0 <=0 (/100 WBCs) Final Performing Location LAB[facility]ATORY [facility] [place] [address] [place] [address]
--- OUTSIDE RECORDS SUMMARY | 2025-04-07 11:51 | External Medical Summary ---
Author Name Unknown Address Unknown Organization K01:LABORATORY [facility] [place] - [address] [facility] [place] [address] Laboratory Report Ordering Provider Test Date Status DINESH MOBLEY 10/17/2024 08:04:23 Final Observation Date Value Abnormality Reference (Units ) Status SYNC LEUKOCYTES IN BLOOD BY AUTOMATED COUNT 10/17/2024 08:04:23 3.04 Below low normal 4.00-10.80 (K/uL) Final Segs 10/17/2024 08:04:23 64.9 40.0-75.0 (%) Final Lymphs % 10/17/2024 08:04:23 25.7 18.0-42.0 (%) Final Monos 10/17/2024 08:04:23 5.9 1.0-11.0 (%) Final Eosinophils 10/17/2024 08:04:23 1.6 0.0-6.0 (%) Final Basos 10/17/2024 08:04:23 1.6 0.0-2.0 (%) Final Immature Granulocyte, Percent 10/17/2024 08:04:23 0.3 0.0-2.0 (%) Final Absolute Segs 10/17/2024 08:04:23 1.97 1.80-7.70 (K/uL) Final Lymphs, absolute 10/17/2024 08:04:23 0.78 Below low normal 1.00-4.80 (K/ul) Final Monos, Abs 10/17/2024 08:04:23 0.18 0.00-1.10 (K/uL) Final Eos, Abs 10/17/2024 08:04:23 0.05 0.00-0.70 (K/uL) Final Basos, Abs 10/17/2024 08:04:23 0.05 0.00-0.20 (K/uL) Final Immature Granulocytes, Number 10/17/2024 08:04:23 0.01 0.00-0.20 (K/uL) Final Performing Location LABORATORY [facility] [place] - [facility] [address] [place] [address]
--- OUTSIDE RECORDS SUMMARY | 2025-04-07 11:51 | External Medical Summary | Summary of Care ---
Author Name Unknown Organization [facility] Address [address] [place] [address] Phone [phone] Care Team Providers Care Drum Cleaner Name Role Phone Rowena Banks PA-C Primary Care Provider +1 -[phone] Reason for Visit * Reason Comments Medication Management Encounter Details Date Type Department Care Team (Late st Contact Info) Description 10/19/2024 9:30 AM [facility] Pharmacy Pharmacy Hematology Oncology [facility] [address] [place] [address] [facility], [facility] Hem/Onc [address] [place], [place] [id number] Malignant neoplasm of upper-outer quadrant of left [...] this encounter Progress Notes * Nessa Taveras, [facility] - 10/19/2024 9:13 AM EST MEDICATION THERAPY MANAGEMENT ABEMACICLIB TREATMENT PROGRESS NOTE Sarah Burgos [phone] Patient Phone Numbers Preferred Lab: [place] Specialty Pharmacy: [facility] Communication: Left message requesting return call to assess toleration to therapy Treatment: Medication: Abemaciclib (Verzenio) Indication/Staging/Diagnosis Code: met ER+/GA+/HER2- breast cancer / C50.412 Dose: 100mg BID ( 08/31/2024) Administration: +/- food Start Date: 03/28/24 Primary Food Safety Auditor/Oncologist: Dr. Rui Christiansen Supportive Care Meds: Fulvestrant Xgeva Ondansetron Prophylactic Meds: See anticoagulation Relevant Chronic Medications: Category Medications Pertinent Notes Antihypertensives HCTZ 12.5mg daily Losartain 100mg daily Carvedilol 6.25mg BID Hydralazine 50mg TID Per cardiology Antidiabetic Sitagliptin Pt hx Anticoagulation ASA 81mg daily Pt hx Treatment History: 12/25/19-05/22/20: DDAC + paclitaxel 07/07/20: b/l mastectomy 10/2020: RT 05/2020-10/2022: anastrozole 10/2022-02/2024: exemestane Dose adjustment / medication hold: 07/18/24-07/26/24: abemaciclib held due to elevated creatinine 07/27/24: resumed abemaciclib 150mg daily 08/08/24: DI to 150mg BID 08/23/24: DR to 150mg daily 08/31/2024: DR to 100mg BID Interval History: N/A Changes to medication list since last visit? No Assessment and Plan: Hgb declining Per TE 10/19/24, pt to start vitamin B12 injections Will monitor closely PLT declining to grade 1 thrombocytopenia Per PI, no dose adjustment recommended for PLT > 50K Will monitor closely Ca2+ improving to WNL All other labs stable Continue current abemaciclib dose and monthly labs (next due with OV) Assessment of compliance: N/A Assessment of adverse effects attributed to drug therapy: N/A Dose adjustment needed based on lab or adverse drug reaction? No Follow up: 11/13 OV/labs; 12/11 MTM with anticipated labs Nessa Taveras, PharmD, BCOP Clinical Pharmacist, [facility] Oral Chemotherapy [facility] 10/19/2024, 11:29 AM Monitoring Parameters: Estimated CrCl Serum creatinine: 0.9 mg/dL 10/17/24 0804 Estimated creatinine clearance: 72 mL/min Hepatitis panel Latest Reference Range & [...] Pertinent labs: Latest Reference Range & Units 08/22/24 07:47 09/19/24 08:03 10/17/24 08:04 WBC 4.00 - 10.80 K/uL 4.32 3.52 (L) 3.04 (L) RBC 3.85 - 5.15 M/uL 2.63 2.60 2.62 HGB 12.0 - 15.3 g/dL 9.7 (L) 9.5 (L) 9.2 (L) HCT 36.0 - 45.2 % 29.9 (L) 29.4 (L) 28.9 (L) MCV 81.5 - 97.5 fL 113.7 113.1 110.3 MCH 27.0 - 34.0 pg 36.9 36.5 35.1 MCHC 32.0 - 36.0 g/dL 32.4 32.3 31.8 RDW 11.5 - 15.5 % 13.0 14.0 14.4 PLT 140 - 400 K/uL 147 152 133 (L) MPV 6.6 - 11.1 fL 10.5 10.3 10.4 CBC WITH WBC DIFFERENTIAL Rpt ! Rpt ! Rpt ! Absolute Neutrophils 1.80 - 7.70 K/uL 2.95 2.27 1.97 Latest Reference Range & Units 08/22/24 07:47 09/19/24 08:03 10/17/24 08:04 CALCIUM 8.4 - 10.2 mg/dL 9.2 8.2 (L) 8.5 Latest Reference Range & Units 08/22/24 07:47 09/19/24 08:03 10/17/24 08:04 Albumin 3.8 - 5.0 g/dL 4.2 4.1 4.1 AST 10 - 35 U/L 15 16 18 ALT 10 - 35 U/L 9 (L) 13 9 (L) Alkaline Phosphatase 35 - 130 U/L 113 168 (H) 177 (H) Bilirubin, Total <=1.2 mg/dL 0.4 0.3 0.5 Time Spent on Encounter: 6 - [...] 10/26/2024 10:30 AM EST Immunization/In jection Hematology/Oncol ogy Treatment, [place] [address] [facility] [phone] Nimo, Chair 5 Hem Onc [facility] [address] 11/05/2024 9:45 AM EST Imaging Radiology [address], [place] 132 [facility] [place] [id number] 11/05/2024 11:00 AM EST Imaging Radiology [address], [place] [address] [place] [address] 11/13/2024 11:15 AM EST Office Visit Hematology/Oncol ogy [place] [address] [place], [place] [phone] Marquis Christiansen MD [address] [place] [address] 11/16/2024 12:45 PM EST Immunization/In jection Hematology/Oncol ogy Treatment, [place] [address] [place], [place] [phone] Nimo, Chair 7 Hem Onc [facility] [address] [facility], [place] [address] 11/26/2024 9:00 AM EST Office Visit Cardiology, [facility] [address] [place] [address] Homar Ware PAMarimarC [address] [place] [address] 12/03/2024 8:00 AM EST Office Visit Orthopaedics [facility] [address] [place] [address] Javed Salas, [address] [place] [address] 12/11/2024 9:30 AM EST Pharmacy Pharmacy Hematology Oncology [facility] [address] [place] [address] [facility]c [address] [place] [address] 04/01/2025 1:00 PM EDT Hospital Encounter ENDO [facility], Endoscopy Room [facility] [address] [place] [phone] Amilcar Duran MD 132 [place] [address] 04/01/2025 1:00 PM EDT - 04/01/2025 1:30 PM EDT Surgery ENDO [facility], Endoscopy Room [facility] [address] [place] [phone] Amilcar Duran MD [address] [place] [address] ESOPHAGOGASTRODUODENOSCOPY (EGD), FLEXIBLE, TRANSORAL, DIAGNOSTIC 04/17/2025 10:30 AM EDT Office Visit Gastroenterology , [facility] [address] [place] [address] Rosendo Alcantara CRNP [address] [place] [address] Scheduled Procedures Name Priority Associated Diagnoses Date/Ti [...] Discussed due to patient's condition Care Teams Drum Cleaner Relationship Specialty Start Date End Date Rowena Banks PA-C [address] [place] [address] PCP - General Physician Teacher Of The Handicapped 06/01/22 documented as of this encounter
--- OUTSIDE RECORDS SUMMARY | 2025-04-07 11:51 | External Medical Summary | Summary of Care ---
Author Name Unknown Organization [facility] Address [address] [facility] [place] [address] Phone [phone] Care Team Providers Care Cloud Software Engineer Name Role Phone Rowena Banks PA-C Primary Care Provider [phone] [phone] Reason for Visit * Reason Onset Date Comments Other 10/16/2024 [facility] Encounter Details Date Type Department Care Team (Late st Contact Info) Description 10/16/2024 Telephone Hematology/Oncology [facility] N[place] 200 [facility] [place] [phone] Marquis Christiansen MD 200 [facility] [place] [address] Other ([facility]) Allergies Active Allergy Reactions Criticality Noted Date [...] this encounter (statuses as of 10/17/2024) Medications COMBIGAN 0.2-0.5 % ophthalmic solution Instill [...] of breath) 11/03/2017 BMI 45.0-49.9, adult 08/22/2017 02/12/2 020 Overview: Per Obesity protocol #1 Atypical [...] Telephone Encounter - Elizabeth Denise LPN - 10/17/2024 11:52 AM EST Form completed, faxed to [facility] at [phone]. Confirmation page will be scanned into chartwith copy of form. * Telephone Encounter - Elizabeth Denise LPN - 10/16/2024 11:26 AM EST Fax received from [facility] post dated from 09/10/2024. Per Patient Message from 09/17/2024 she had the tooth pulled back in August. Form awaiting MD signature. documented in this encounter Plan of Treatment Upcoming Encounters Date Type Department Care Team (Latest Contact Info) Description 10/19/2024 9:30 AM EST Pharmacy Pharmacy Hematology Oncology [address] [address] [facility] Hem/Onc [address] [place] [address] 10/19/2024 10:45 AM EST Immunization/In jection Hematology/Oncol ogy Treatment, [place] [address] [place] [address] 11/05/2024 9:45 AM EST Imaging Radiology [facility], [place] 132 [facility] [place] [address] 11/05/2024 11:00 AM EST Imaging Radiology [facility], [place] 132 [facility] [place] [address] 11/13/2024 11:15 AM EST Office Visit Hematology/Oncol ogy [facility] [address] [place] [address] Marquis Christiansen MD 200 [facility] [place] [address] 11/26/2024 9:00 AM EST Office Visit Cardiology, [facility] [address] [place] [address] Homar Ware, [place] [address] [place] [address] 12/03/2024 8:00 AM EST Office Visit Orthopaedics [facility] [address] [place] [address] Javed Salas DO [address] [place] [address] 04/01/2025 1:00 PM EDT Hospital Encounter ENDO [facility], Endoscopy Room [facility] [address] [place] [phone] Amilcar Duran MD [address] [place] [address] 04/01/2025 1:00 PM EDT - 04/01/2025 1:30 PM EDT Surgery ENDO [facility], Endoscopy Room [facility] [address] [place] [phone] Amilcar Duran MD [address] [place] [address] ESOPHAGOGASTRODUODENOSCOPY (EGD), FLEXIBLE, TRANSORAL, DIAGNOSTIC 04/17/2025 10:30 AM EDT Office Visit Gastroenterology , [facility] [address] [place] [address] Rosendo Alcantara CRNP [address] [place] [address] Scheduled Procedures Name Priority Associated Diagnoses Date/Ti [...] Discussed due to patient's condition Care Teams Cloud Software Engineer Relationship Specialty Start Date End Date Rowena Banks PA-C [address] [place] [address] PCP - General Physician Credentialing Assistant 06/01/22 documented as of this encounter
--- OUTSIDE RECORDS SUMMARY | 2025-04-07 11:51 | External Medical Summary | Summary of Care ---
Author Name Unknown Organization [facility] Address [address] [facility] [place] [address] Phone [phone] Care Team Providers Care Dispatcher Service Or Work Name Role Phone Rowena Banks PA-C Primary Care Provider +1 -[phone] Reason for Visit * Reason Onset Date Comments Test Results Lab 10/19/2024 Encounter Details Date Type Department Care Team (Late st Contact Info) Description 10/19/2024 Telephone Hematology/Oncology Treatment, [place] [address] [place] [phone] Marquis Christiansen MD 200 [place] [address] Test Results Lab Allergies Active Allergy Reactions [...] Telephone Encounter - Estela Whitlock RN - 10/19/2024 8:[address] Christiansen: "Blood workup done on 10/17/2024: -B12 level --> [...] x4 followed by 1000 microgram every monthly. " Called patient, she verbalized understanding. [place] plan built and routed for signature. Prior auth not needed for B12. documented in this encounter Plan of Treatment Upcoming Encounters Date Type Department Care Team (Latest Contact Info) Description 10/19/2024 9:30 AM EST Pharmacy Pharmacy Hematology Oncology [address] [address] [facility], [facility] Hem/Onc [facility] [place] [address] 10/19/2024 10:45 AM EST Immunization/In jection Hematology/Oncol ogy Treatment, [place] [address] [place] [phone] 11/05/2024 9:45 AM EST Imaging Radiology [address], [address] [place] [address] 11/05/2024 11:00 AM EST Imaging Radiology [address], [address] [place] [address] 11/13/2024 11:15 AM EST Office Visit [facility] [address] [place] [phone] Marquis Christiansen MD [address] [place] [address] 11/16/2024 12:45 PM EST Immunization/In jection Hematology/Oncol ogy [facility], [place] [address] [place] [phone] Nimo, Chair 7 Hem Onc [address] 200 [place] [address] 11/26/2024 9:00 AM EST Office Visit Cardiology, [facility] [address] [place] [address] Homar Ware PA-C [address] [place] [address] 12/03/2024 8:00 AM EST Office Visit Orthopaedics [facility] [address] [place] [address] Javed Salas DO [address] [place] [address] 04/01/2025 1:00 PM EDT Hospital Encounter ENDO [facility], Endoscopy Room [facility] [address] [place] [phone] Amilcar Duran MD [address] [place] [address] 04/01/2025 1:00 PM EDT - 04/01/2025 1:30 PM EDT Surgery ENDO [facility], Endoscopy Room [facility] [address] [place] [phone] Amilcar Duran MD [address] [place] [address] ESOPHAGOGASTRODUODENOSCOPY (EGD), FLEXIBLE, TRANSORAL, DIAGNOSTIC 04/17/2025 10:30 AM EDT Office Visit Gastroenterology , [facility] [address] [place] [address] Rosendo Alcantara CRNP [address] [place] [address] Scheduled Procedures Name Priority Associated Diagnoses Date/Ti [...] Discussed due to patient's condition Care Teams Dispatcher Service Or Work Relationship Specialty Start Date End Date Rowena Banks PA-C [address] [place] [address] PCP - General Physician Director Cardiac 06/01/22 documented as of this encounter
--- OUTSIDE RECORDS SUMMARY | 2025-04-07 11:51 | External Medical Summary ---
Author Name Unknown Address Unknown Organization K01:[facility] [place] [address] [place] [address] Laboratory Report Ordering Provider Test Date Status DINESH MOBLEY 10/17/2024 08:04:23 Final Observation Date Value Abnormality Reference (Units ) Status Vitamin B12 10/17/2024 08:04:23 180 Below low normal 2 32-1245 (pg/mL) Final Performing Location [facility] [place] [address] [place] [address]
--- OUTSIDE RECORDS SUMMARY | 2025-04-07 11:52 | External Medical Summary | Summary of Care ---
Author Name Unknown Organization [facility] Address [address] [facility] [place] [address] Phone [phone] Care Team Providers Care Strike Off Machine Operator Name Role Phone Rowena Banks PA-C Primary Care Provider +1 -[phone] Encounter Details Date Type Department Care Team (Late st Contact Info) Description 10/16/2024 Orders Only Hematology/Oncology Treatment, [place] [address] [place] [address] Marquis Christiansen MD 200 [place] [address] Allergies Active Allergy Reactions Criticality Noted Date [...] as of this encounter (statuses as of 10/16/2024) Medications COMBIGAN 0.2-0.5 % ophthalmic solution Instill [...] as of this encounter (statuses as of 10/16/2024) Active Problems Problem Noted Date Diagnosed Date [...] as of this encounter (statuses as of 10/16/2024) Resolved Problems Problem Noted Date Diagnosed Date [...] as of this encounter (statuses as of 10/16/2024) Immunizations Name Administration Dates Next Due COVID-19 [...] Department Care Team (Latest Contact Info) Description 10/17/2024 7:50 AM EST Laboratory Laboratory, [place] [address] [facility] [place] [phone] Brig[place], Laboratory [address] [facility] [place] [address] 10/19/2024 9:30 AM EST Pharmacy Pharmacy Hematology Oncology [facility] [address] [place] [address] [facility] Hem/Onc [address] [place] [address] 10/19/2024 10:45 AM EST Immunization/Inj ection Hematology/Oncol ogy Treatment, [place] [address] [facility] [address] [place] [address] 11/05/2024 9:45 AM EST Imaging Radiology [address] 132 [facility] [place] [address] 11/05/2024 11:00 AM EST Imaging Radiology [address] 132 [facility] [place] [address] 11/13/2024 11:15 AM EST Office Visit Hematology/Oncol ogy [facility] 200 [facility] [place] [phone] Marquis Christiansen MD 200 [facility] [place] [address] 11/26/2024 9:00 AM EST Office Visit Cardiology, [facility] 132 [facility] [place] [address] Homar Ware PA-C 132 [facility] [place] [address] 12/03/2024 8:00 AM EST Office Visit Orthopaedics [facility] [address] [place] [address] Javed Salas, [address] [place] [address] 04/01/2025 1:00 PM EDT Hospital Encounter ENDO [facility], Endoscopy Room [facility] [address] [place] [phone] Amilcar Duran MD [address] [place] [address] 04/01/2025 1:00 PM EDT - 04/01/2025 1:30 PM EDT [facility] [address] [place] [address] Amilcar Duran MD [address] [place] [address] ESOPHAGOGASTRODUODENOSCOPY (EGD), FLEXIBLE, TRANSORAL, DIAGNOSTIC 04/17/2025 10:30 AM EDT Office Visit Gastroenterology , [facility] [address] [place] [address] Rosendo Alcantara CRNP [address] [place] [address] Scheduled Procedures Name Priority Associated Diagnoses Date/Ti in ESOPHAGOGASTRODUODENOSCOPY ( EGD), FLEXIBLE, TRANSORAL, DIAGNOSTIC Gastroesophageal [...] 08/06/2024, Additional history exists Colonoscopy 02/28/2028 02/27/2018, 040 [...] Discussed due to patient's condition Care Teams Strike Off Machine Operator Relationship Specialty Start Date End Date Rowena Banks PA-C [address] [facility] [place] [address] PCP - General Physician Forest Fire Equipment Operator 06/01/22 documented as of this encounter
--- OUTSIDE RECORDS SUMMARY | 2025-04-07 11:52 | External Medical Summary | Summary of Care ---
Author Name Unknown Organization [facility] Address [address] [facility] [place] [address] Phone [phone] Care Team Providers Care Maintenance Shop Manager Name Role Phone Rowena Banks PA-C Primary Care Provider +1 -[phone] Reason for Visit * Reason Onset Date Comments Other 10/16/2024 [facility] Encounter Details Date Type Department Care Team (Late st Contact Info) Description 10/16/2024 Telephone Hematology/Oncology [facility] N[place] 200 [facility] [place] [address] Marquis Christiansen MD 200 [facility] [place] [address] Other ([facility]) Allergies Active Allergy Reactions Criticality Noted [...] 10/16/2024 11:26 AM EST Fax received from [facility] post dated from 09/10/2024. Per Patient Message from 09/17/2024 she had the tooth pulled back in August. Form awaiting MD signature. documented in this encounter Plan of Treatment Upcoming Encounters Date Type Department Care Team (Latest Contact Info) Description 10/17/2024 7:50 AM EST Laboratory Laboratory, [facility] [address] [place] [address] [address] 10/19/2024 9:30 AM EST Pharmacy Pharmacy Hematology Oncology [facility] [address] [place] [address] [facility], [facility] Hem/Onc [address] [place] [address] 10/19/2024 10:45 AM EST Immunization/Inj ection Hematology/Oncol ogy Treatment, [place] [address] [place] [address] 11/05/2024 9:45 AM EST Imaging Radiology [address] 132 [facility] [place] [address] 11/05/2024 11:00 AM EST Imaging Radiology [address] 132 [facility] [place] [address] 11/13/2024 11:15 AM EST Office Visit Hematology/Oncol ogy [address] [place] [address] Marquis Christiansen MD 200 [place] [address] 11/26/2024 9:00 AM EST Office Visit Cardiology, [facility] [address] [place] [address] Homar Ware PA-C [address] [place] [address] 12/03/2024 8:00 AM EST Office Visit Orthopaedics [facility] [address] [place] [address] Javed Salas DO [address] [place] [address] 04/01/2025 1:00 PM EDT Hospital Encounter ENDO [facility], Endoscopy Room [facility] [address] [place] [phone] Amilcar Duran MD [address] [place] [address] 04/01/2025 1:00 PM EDT - 04/01/2025 1:30 PM EDT Surgery ENDO [facility], Endoscopy Room [facility] [address] [place] [phone] Amilcar Duran MD [address] [place] [address] ESOPHAGOGASTRODUODENOSCOPY (EGD), FLEXIBLE, TRANSORAL, DIAGNOSTIC 04/17/2025 10:30 AM EDT Office Visit Gastroenterology , [facility] [address] [place] [address] Rosendo Alcantara CRNP [address] [place] [address] Scheduled Procedures Name Priority Associated Diagnoses Date/Ti [...] Discussed due to patient's condition Care Teams Maintenance Shop Manager Relationship Specialty Start Date End Date Rowena Banks PA-C [address] [place] [address] PCP - General Physician Java Programmer Analyst 06/01/22 documented as of this encounter
--- OUTSIDE RECORDS SUMMARY | 2025-04-07 11:52 | External Medical Summary | Summary of Care ---
Author Name Unknown Organization [facility] Address [address] [facility] [place] [address] Phone [phone] Care Team Providers Care Particle Board Supervisor Name Role Phone Rowena Banks PA-C Primary Care Provider [phone] [phone] Reason for Visit * Reason Comments Follow Up Pt here to f/u for G ERD/IBS. Encounter Details Date Type Department Care Team (Latest Contact Info) Description 10/11/2024 9:30 AM EST Office Visit Gastroenterology, [facility] [address] [facility] [place] [address] Rosendo Alcantara CRNP [address] [facility] [place] [address] Gastroesophageal reflux disease, unspecified whether esophagitis present* Allergies Active Allergy Reactions Criticality Noted Date [...] as of this encounter (statuses as of 10/11/2024) Medications COMBIGAN 0.2-0.5 % ophthalmic solution Instill 1 Drop into both eyes in the morning and 1 Drop before bedtime. 019 Active Naproxen Sodium 550 MG Oral Tablet TAKE 1 TABLET BY MOUTH TWICE A DAY WITH BREAKFAST AND DINNER 180 Tablet 1 023 Active aspirin enteric coated 81 MG TBEC Take 1 Tablet by mouth in the morning. 020 Active HiFiKiddoTouch Verio w/Device KitIndications: Type 2 diabetes mellitus with hemoglobin A1c goal of less than 7.0% (HCC) Use up to twice times a day E11.9 1 Kit 022 Active HiFiKiddoTouch Verio In Vitro Strip (Glucose Blood)Indicatio ns:Type 2 diabetes mellitus with hemoglobin A1c goal of less than 7.0% (HCC) Use up to 2 times a day E11.9 100 Strip 11 022 Active HiFiKiddoTouch UltraSoft LancetsIndicati ons:Type 2 diabetes mellitus with [...] EVERY MORNING 90 Tablet 2 024 Active hydrALAZINE HCl 50 MG Oral Tablet (Apresoline)Ind ications:HTN, goal below 140/90 Take 1 Tablet by mouth in the morning and 1 Tablet at noon and 1 Tablet before bedtime. 270 Tablet 3 024 Active Carvedilol 6.25 MG Oral Tablet (Coreg)Indicati ons:HTN, goal below 140/90 Take 1 Tablet by mouth 2 times a day with morning and evening meals. 180 Tablet 3 024 Active Fluticasone Propionate 50 MCG/ACT Nasal Suspension (Flonase)Indica tions:Dysfuncti on of Eustachian tube, bilateral Administer 2 Sprays into each nostril daily as needed for Congestion. 48 mL 1 024 Active oxyCODONE HCl 5 MG Oral Tablet (Oxy IR)Indications: Malignant neoplasm of upper-outer quadrant of left breast in female, estrogen receptor positive (HCC),Metastasi s to bone (HCC) Take 1 Tablet by mouth every 6 hours as needed for Pain, Moderate. 60 Tablet 024 Active Cyclobenzaprine HCl 10 MG Oral [...] (1 tablet) before bedtime. 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 60 Each 1 Active Gabapentin 100 MG Oral Capsule (Neurontin)Sharee [...] 1 Tablet before bedtime. 180 Tablet 3 Active Esomeprazole Magnesium 40 MG Oral Capsule Delayed Release Take 1 Capsule by mouth daily before breakfast. 90 Capsule 3 024 Active Famotidine 20 MG Oral Tablet (Pepcid) Take 1 Tablet by mouth at bedtime. 90 Tablet 3 024 2023 Discontinued Esomeprazole Magnesium 40 MG Oral Capsule Delayed Release Take 1 Capsule by mouth daily before breakfast. 90 Capsule 024 2023 Discontinued(R efill) Hospital, Clinic, or Other Facility Administered Medication Ordered Dose Route Frequency Start Date End Date Status albuterol sulfate (PROVENTIL) (2.5 MG/3ML) 0.083% inhalation solution 2.5 mgIndications:Restrictive lung disease,SOB (shortness of breath) 2.5 mg NEBULIZER Q4H PRN 11/07/2017 Act roe documented as of this encounter (statuses as of 10/11/2024) Active Problems Problem Noted Date Diagnosed Date [...] as of this encounter (statuses as of 10/11/2024) Resolved Problems Problem Noted Date Diagnosed Date [...] as of this encounter (statuses as of 10/11/2024) Immunizations Name Administration Dates Next Due COVID-19 [...] Sign Reading Time Taken Comments Blood Pressure 102/64 10/11/2024 9:22 AM EST Pulse - - Temperature 36.7 °C (98.1 °F) 10/11/2024 9:22 AM ES T Respiratory Rate - - Oxygen Saturation - - Inhaled Oxygen Concentration - - Weight 108.4 kg (239 lb) 10/11/2024 9:22 AM EST Height - - Body Mass Index 41.02 01/20/2024 2:59 PM EST documented in this encounter Progress Notes * Rosendo Alcantara CRNP - 10/11/2024 9:33 AM EST CC: Recheck GERD, HPI: Recall that Ms. Sarah Burgos is a 68 yr old female pt of Dr. Jocelyn oropeza a hx of HLD, HTN, obesity, depression, fibromyalgia, IBS-C, left breast cancer 2019 S/P bilat mastectomies, chemo and radiation. Currently on Verenzio BID and Faslodex monthly injection. Current GI Meds: Esomeprazole 40mg daily Famotidine 20mg HS started a month ago. Current GI Symptoms: Reflux worsened about 1-2 m ago A lot of heartburn and reflux. Morning burning in the chest and neck Abdominal pain after eating, lower abd, both sides, gassing, not effected by passing flatus or defecation. Has diarrhea many times the past few times 6 - 7 times. Has intermittent episdoes of diarrhea. Diarrhea doesn't seem to cycle w the Chem meds, but told by onc pharmacist side effect of Rozinio PET in June 2024: Redemonstrated innumerable treated osteoblastic lesions throughout the axial and appendicular skeleton, most decreasing or similar in avidity and at least one increased, indicating mixed treatment response. CTAP January 2024: 1. New sclerotic osseous [...] for evaluation of microscopic colitis. EXAM: BP 102/64 | Temp 36.7 °C (98.1 °F) | Wt 108.4 kg (239 lb) | BMI 41.02 kg/m² | BSA 2.21 m² GENERAL: 68 year old female well developed and well nourished in no acute distress SKIN: no rashes, ulcers, or spider angiomata HEENT: normocephalic, sclera clear, pharynx normal NECK: supple, no lymphadenopathy, no masses or thyroid enlargement LUNGS: clear to auscultation anterior and posterior HEART: regular rate & rhythm, no murmurs and no gallops Chest: tenderness on superficial palpation of the left upper chest ABDOMEN: normo-active bowel sounds, soft, non-tender, non-distended no masses, no hepatosplenomegaly, no rebound or guarding, no bruits EXTREMITIES: no palmar erythema, no edema, no skin discoloration, no clubbing, no cyanosis NEURO: no lateralizing findings, Sensory/Motor grossly normal IMPRESSION/RECOMMENDATIONS: 68 year old female with Gastroesophageal reflux disease, unspecified whether esophagitis present (Primary) - EGD, FLEXIBLE, DIAGNOSTIC - Famotidine 20 MG Oral Tablet (Pepcid); Take 1 Tablet by mouth in the morning and 1 Tablet before bedtime. - Esomeprazole Magnesium 40 MG Oral Capsule Delayed Release; Take 1 Capsule by mouth daily before breakfast. Will consider sucralfate in addition if increased famotidine from daily -> BID not helpful. Continue imodium prn diarrhea. If persists w arrange repeat stool studies. Recheck in 6m, call sooner if worsening of symptoms I spent a total of 30 minutes [...] documented in this encounter Nursing Notes * Olga Hector CMA - 10/11/2024 9:21 AM EST Chief Complaint Patient presents with Follow Up Pt here to f/u for GERD/IBS. documented in this encounter Plan of Treatment Upcoming Encounters Date Type Department Care Team (Latest Contact Info) Description 10/17/2024 7:50 AM EST Laboratory Laboratory, [facility] [address] [place] [address] [id number] [place] [address] 10/19/2024 9:30 AM EST Pharmacy Pharmacy Hematology Oncology [address] [place] [address] [facility], [facility] Hem/Onc [address] [place] [address] 10/19/2024 10:45 AM EST Immunization/Inj ection Hematology/Oncol ogy Treatment, [place] [address] [place] [address] 11/05/2024 9:45 AM EST Imaging Radiology [address] [address] 11/05/2024 11:00 AM EST Imaging Radiology [address] [facility] [place] [address] 11/13/2024 11:15 AM EST Office Visit Hematology/Oncol ogy Patrick [facility] [place] [address] [place] [phone] Marquis Christiansen MD [address] [place] [address] 11/26/2024 9:00 AM EST Office Visit Cardiology, [facility] [address] [place] [address] Homar Ware PA-C [address] [place] [address] 12/03/2024 8:00 AM EST Office Visit Orthopaedics [facility] [address] [place] [address] Javed Salas DO [address] [place] [address] 04/01/2025 1:00 PM EDT Hospital Encounter ENDO OSSC, Endoscopy Room [facility] [address] [place] [phone] Amilcar Duran MD [address] [place] [address] 04/01/2025 1:00 PM EDT - 04/01/2025 1:30 PM EDT Surgery ENDO OSSC, Endoscopy Room [facility] [address] [place] [address] Amilcar Duran MD [address] [place] [address] ESOPHAGOGASTRODUODENOSCOPY (EGD), FLEXIBLE, TRANSORAL, DIAGNOSTIC 04/17/2025 10:30 AM EDT Office Visit Gastroenterology , [facility] [address] [place] [address] Rosendo Alcantara CRNP [address] [place] [address] Scheduled Orders Name Type Priority Associated Diagnoses Orde r Schedule EGD, FLEXIBLE, DIAGNOSTIC Procedures Routine Gastroesophageal reflux disease, unspecified whether esophagitis present Ordered: 10/11/2024 Scheduled Procedures Name Priority Associated Diagnoses Date/Ti [...] as of this encounter Visit Diagnoses Diagnosis Gastroesophageal reflux disease, unspecified whether esophagitis present- Primary Gastroesophageal reflux disease, unspecified whether esophagitis [...] Discussed due to patient's condition Care Teams Particle Board Supervisor Relationship Specialty Start Date End Date Rowena Banks PA-C [address] [facility] [place] [address] PCP - General Physician Fire Equipment Inspector 06/01/22 documented as of this encounter"
--- OUTSIDE RECORDS SUMMARY | 2025-04-07 11:52 | External Medical Summary | Summary of Care ---
Author Name Unknown Organization [facility] Address [address] [facility] [place] [address] Phone [phone] Care Team Providers Care Agency Appointments Supervisor Name Role Phone Rowena Banks PA-C Primary Care Provider [phone] [phone] Reason for Visit * Reason Onset Date Comments Medication Refill 10/12/2024 Encounter Details Date Type Department Care Team (Late st Contact Info) Description 10/12/2024 Refill Hematology/Oncology [facility] [place] [address] [facility] [place] [address] Marquis Christiansen MD [address] [facility] [place] [address] Malignant neoplasm of upper-outer quadrant of left breast in female, estrogen receptor positive (HCC); Metastasis to bone (HCC) Allergies Active [...] as of this encounter (statuses as of 10/14/2024) Medications COMBIGAN 0.2-0.5 % ophthalmic solution Instill [...] tablet) before bedtime. 60 Tablet 5 4 2:13 PM EST 08/27/20 24 Active Ondansetron [...] Pain, Moderate. 60 Tablet 10/14/20 24 Active oxyCODONE HCl 5 MG Oral Tablet (Oxy IR)Indications:M alignant neoplasm of upper-outer quadrant of left breast in female, estrogen receptor positive (HCC),Metastasis to bone (HCC) Take 1 Tablet by mouth every 6 hours as needed for Pain, Moderate. 60 Tablet 07/27/20 24 024 Discontin ued(Refil l) Hospital, Clinic, or Other Facility Administered Medication Ordered Dose Route Frequency Start Date End Date Status albuterol sulfate (PROVENTIL) (2.5 MG/3ML) 0.083% inhalation solution 2.5 mgIndications:Restrictive lung disease,SOB (shortness of breath) 2.5 mg NEBULIZER Q4H PRN 11/07/2017 Act roe documented as of this encounter (statuses as of 10/14/2024) Active Problems Problem Noted Date Diagnosed Date [...] as of this encounter (statuses as of 10/14/2024) Resolved Problems Problem Noted Date Diagnosed Date [...] as of this encounter (statuses as of 10/14/2024) Immunizations Name Administration Dates Next Due COVID-19 [...] Telephone Encounter - Marquis Christiansen MD - 10/14/2024 4:54 PM EST E-prescribed oxycodone. * Telephone Encounter - Estela Whitlock RN - 10/12/2024 3:47 PM ESTPending Prescriptions: Disp Refills oxyCODONE HCl 5 MG Oral Tablet (Oxy IR) 60 Tab*0 Sig: Take 1 Tablet by mouth every 6 hours as needed for Pain, Moderate. * Telephone Encounter - Estela Whitlock RN - 10/12/2024 3:40 PM EST PDMP reviewed. Oxycodone filled 07/27/24 for 60 tablets. No concerns. documented in this encounter Plan of Treatment Upcoming Encounters Date Type Department Care Team (Latest Contact Info) Description 10/17/2024 7:50 AM EST Laboratory Laboratory, [address] [place] [phone] [address] 10/19/2024 9:30 AM EST Pharmacy Pharmacy Hematology Oncology [facility] [place] [address] [place] [address] [facility] Hem/Onc [address] [place] [address] 10/19/2024 10:45 AM EST Immunization/Inj ection Hematology/Oncol ogy Treatment, [place] [address] [place] [phone] 11/05/2024 9:45 AM EST Imaging Radiology [address] [facility] [place] [address] 11/05/2024 11:00 AM EST Imaging Radiology [address] 132 [facility] [place] [address] 11/13/2024 11:15 AM EST Office Visit Hematology/Oncol ogy [facility] [address] [facility] [place] [phone] Marquis Christiansen [facility] [address] 11/26/2024 9:00 AM EST Office Visit Cardiology, [facility] [address] [place] [address] Homar Ware PA-C [address] [place] [address] 12/03/2024 8:00 AM EST Office Visit Orthopaedics [facility] [address] [place] [address] Javed Salas S, DO [address] [place] [address] 04/01/2025 1:00 PM EDT Hospital Encounter ENDO OSSC, Endoscopy Room [facility] [address] [place] [address] Amilcar Duran MD [address] [place] [address] 04/01/2025 1:00 PM EDT - 04/01/2025 1:30 PM EDT Surgery ENDO OSSC, Endoscopy Room [facility] [address] [place] [address] Amilcar Duran MD [address] [place] [address] ESOPHAGOGASTRODUODENOSCOPY (EGD), FLEXIBLE, TRANSORAL, DIAGNOSTIC 04/17/2025 10:30 AM EDT Office Visit Gastroenterology , [facility] [address] [place] [address] Rosendo Alcantara CRNP [address] [place] [address] Scheduled Procedures Name Priority Associated Diagnoses Date/Ti [...] Depression Monitoring 08/20/2025 08/20/2024 GFR 09/19/2025 09/19/2024, 10/0 12/2023, 08/06/2024, Additional history exists Colonoscopy 02/28/2028 02/27/2018, 04/0 [...] Discussed due to patient's condition Care Teams Agency Appointments Supervisor Relationship Specialty Start Date End Date Rowena Banks PA-C [address] [place] [address] PCP - General Physician Semi Driver 06/01/22 documented as of this encounter
[2025-04-07 12:27] LABS: Basophils # (auto) 0.03 K/uL (0.00-0.20); Basophils % (auto) 0.6 %; Eosinophils # (auto) 0.14 K/uL (0.00-0.50); Eosinophils % (auto) 2.6 %; Hematocrit (blood only) 30.4 % (37.0-47.0); Hemoglobin 10.1 g/dl (12.0-16.0); Immature Granulocytes # (auto) 0.02 K/uL (0.01-0.20); Immature Granulocytes % (auto) 0.4 %; Lymphocytes # (auto) 0.64 K/uL (1.20-3.40); Lymphocytes % (auto) 11.9 %; Mean Corpuscular Hemoglobin 33.6 pg (25.0-34.0); Mean Corpuscular Hgb Conc 33.2 g/dL (32.0-36.0); Mean Platelet Volume 10.9 fL (9.4-12.4); Monocytes # (auto) 0.48 K/uL (0.11-0.59); Monocytes % (auto) 8.9 %; Neutrophils # (auto) 4.08 K/uL (1.40-6.50); Neutrophils % (auto) 75.6 %; Platelet Count 141 K/uL (130-400); RDW Coefficient of Variation 16.1 % (11.5-14.5); RDW Standard Deviation 59.3 fL (36.4-46.3); Red Blood Count 3.01 M/uL (4.20-5.40); White Blood Count 5.39 K/ul (4.8-10.8)
[2025-04-07 12:32] LABS: HCO3 VBG 23 mmol/L; Oxygen Saturation VBG 97.1 %; PCO2 VBG 40 mmHg (38-50); PO2 VBG 88 mmHg; pH VBG 7.37 (7.36-7.41)
[2025-04-07 13:01] LABS: Albumin Globulin Ratio 1.5 (0.9-2); Albumin Level 3.8 gm/dl (3.4-5.0); BUN Creatinine Ratio 19.1 (10-20); Bilirubin,Total 1.3 mg/dl (0.2-1.0); Calcium 7.4 mg/dl (8.6-10.3); Creatinine Clr Calc Pharmacy 126.2 ml/min; Globulin 2.6 gm/dl (2.5-4.0); Magnesium 1.9 mg/dl (1.7-2.4); Potassium 3.8 mmol/L (3.5-5.1); Total Protein 6.4 gm/dl (6.0-8.3)
[2025-04-07 13:07] LABS: Troponin I High Sensitivity 29.7 pg/ml (0-14)
[2025-04-07 13:16] LABS: Adenovirus PCR Not Detected (NotDetected); Bordetella parapertussis PCR Not Detected (NotDetected); Bordetella pertussis PCR Not Detected (NotDetected); Chlamydia pneumoniae PCR Not Detected (NotDetected); Coronavirus 229E PCR Not Detected (NotDetected); Coronavirus CoV-2 (COVID19)PCR Not Detected (NotDetected); Coronavirus HKU1 PCR Not Detected (NotDetected); Coronavirus NL63 PCR Not Detected (NotDetected); Coronavirus OC43PCR Not Detected (NotDetected); Human Metapneumovirus PCR Not Detected (NotDetected); Influenza A PCR Not Detected (NotDetected); Influenza B PCR Not Detected (NotDetected); Mycoplasma pneumoniae PCR Not Detected (NotDetected); Parainfluenza Virus 1 PCR Not Detected (NotDetected); Parainfluenza Virus 2 PCR Not Detected (NotDetected); Parainfluenza Virus 3 PCR Not Detected (NotDetected); Parainfluenza Virus 4 PCR Not Detected (NotDetected); Respiratory Syncytial VirusPCR Not Detected (NotDetected); Rhinovirus/Enterovirus PCR Not Detected (NotDetected)
[2025-04-07] MEDS: OPTIRAY 320 125ml IV ONE (13:21)
[2025-04-07 13:44] LABS: Prothrombin Time 11.2 Seconds (9.0-12.0)
--- NOTE | 2025-04-07 13:56 | XRay Report ---
XR chest 1V portable HISTORY: 69 years-old Female Dyspnea COMPARISON: 07/14/2024, CT chest 04/04/2022 TECHNIQUE: AP view of the chest FINDINGS: Cardiac silhouette is enlarged. Pulmonary vascular congestion with interstitial coarsening. Right gre ater than left pleural effusions. Right pleural effusion demonstrates a loculated component laterally . Bibasilar and lateral left midlung consolidation. Sclerotic bony lesions. IMPRESSION: 1. Cardiomegaly with pulmonary vascular congestion. 2. Layering pleural effusions with bibasilar consolidation. The right pleural effusion is multilocula hillary. 3. Bony sclerotic metastasis. ACT 112: Negative or not required by law. The above report was generated using voice recognition software. It may contain grammatical, syntax o r spelling errors. Electronically signed by: Jose Martin Garber M.D. 04/07/2025 1:54 PM
--- NOTE | 2025-04-07 14:11 | Electrocardiogram Report ---
Test Reason : Blood Pressure : */* mmHG Vent. Rate : 81 BPM Atrial Rate : 81 BPM P-R Int : 192 ms QRS Dur : 90 ms QT Int : 408 ms P-R-T Axes : 39 -47 2 degrees QTcB Int : 473 ms Normal sinus rhythm Left anterior fascicular block Minimal voltage criteria for LVH, may be normal variant Septal infarct , age undetermined Abnormal ECG When compared with ECG of 06-Jul-2024 14:58, Septal infarct is now Present Nonspecific T wave abnormality, worse in Inferior leads Nonspecific T wave abnormality now evident in Anterior leads Confirmed by Tony Breaux ([id number]) on 04/07/2025 2:10:57 PM Referred By: Confirmed By: Tony Breaux
--- NOTE | 2025-04-07 14:32 | CT Scan Report ---
CT pulmonary angiogram with IV contrast History: Shortness of breath COMPARISON: None TECHNIQUE: CT angiography of the chest was performed without IV contrast followed by IV contrast, including 3D post processing CTA image reconstruction. Dose reduction techniques were achieved by using automatic exposure control and/or adjustment of mA and/or kV according to patient size and/or use of iterative reconstruction technique. FINDINGS: Diagnostic quality: Adequate There is no evidence for pulmonary embolism. The heart is not enlarged. Moderate coronary calcification. Enlarged pulmonary artery at 3.7 cm suggesting pulmonary hypertension. Mitral annular calcifications. There is no pericardial effusion. There are no abnormally enlarged hilar or mediastinal lymph nodes. The central tracheobronchial tree is clear. Moderate bilateral pleural effusions with subjacent compressive atelectasis. Limited visualized upper abdomen. No destructive osseous changes are seen. Degenerative change of the shoulder joints. Bilateral mastectomy changes. There is a thin postoperative seroma in the right chest wall surrounded by soft tissue edema. Diffuse patchy sclerosis throughout the bones of the spine, ribs, shoulders, clavicles, and sternum consistent with bony metastatic disease. IMPRESSION: No evidence for pulmonary embolism. Moderate pleural effusions. Diffuse sclerotic lesions throughout the bones consistent with metastasis. Electronically signed by Luis Angel Mayo 04-07-2025 2:32 PM
[2025-04-07] MEDS ORDERED: POLYETHYLENE (MIRALAX) 17 GM PACK PO PRN (15:19)
--- NOTE | 2025-04-07 15:20 | History & Physical Report ---
Date of Service April 07, 2025 Assessment & Plan (1) Pleural effusion, bilateral: Plan #SOB c/b chest pain likely 2/2 pleural effusions c/b malignancy #Breast ca w/mets to the bone #Hyperbilirubinemia, elevated alk phos in the setting of bone mets per onc #NSTEMI likely type 2 in the setting of above #Asthma -pulm referral, consider thora -diuresis, will give one dose IV then follow up oral -trend labs -trend trops to max -stat EKG any new chest pain or palpitations -scheduled duonebs per pt preference -consider cardio referral #Macrocytic anemia -monitor #GERD, htn, JUDITH/MDD, IBS-M -home meds No IVF, diet DVT ppx History of Present Illness Primary Care Provider: Rowena Banks PA-C 69F [facility] breast ca w/mets to the bone, asthma, JUDITH, MDD, htn, gerd, IBS-M who presents for worsening SOB, chest pain. Patient is accompanied by family who assist with history. State that for the last 1 month approximately she has been having SOB, which worsened until today when she had SOB at both rest and activity also with chest pain, L sided associated with breathing. They state that starting around October of last year she began to have pleural effusions, and then December began to have ascites when scanned by oncology. These fluid collections have been approximately stable. Currently she is taking a break from chemotherapy due to weakness. History of recent LLE swelling oncology did U/S which was negative. No other symptoms including fever, chills, palpitations. Allergies Allergy/AdvReac Type Severity Reaction Status Date / Time amoxicillin Allergy Severe Augmentin- Verified 04/07/25 13:39 itchy, swelling, dyspnea clavulanic acid Allergy Severe Augmentin- Verified 04/07/25 13:39 itchy, swelling, dyspnea Penicillins Allergy Severe Augmentin- Verified 04/07/25 13:39 itchy, swelling, dyspnea lisinopril Allergy Mild cough/swell Verified 04/07/25 13:39 ing Sulfa (Sulfonamide Allergy Mild Rash Verified 04/07/25 13:39 Antibiotics) Home Medications Medication Instructions Recorded Confirmed Type brimonidine 0.2 %-timolol 0.5 % 1 drp ophthalmic (eye) BID 08/15/18 04/07/25 History eye drops (Combigan) duloxetine 60 mg capsule,delayed 60 mg PO HS 07/18/19 04/07/25 History release (Cymbalta) montelukast 10 mg tablet 10 mg PO QAM 11/26/19 04/07/25 History dorzolamide 2 % eye drops 1 drp OPB BID 01/19/20 04/07/25 History aspirin 81 mg tablet,delayed 81 mg PO QAM 08/12/20 04/07/25 History release calcium 600 mg (as 1 tab PO QAM 08/12/20 04/07/25 History carbonate)-vitamin D3 20 mcg (800 unit) tablet (Caltrate with Vitamin D3) esomeprazole magnesium 40 mg 40 mg PO QAM 08/12/20 04/07/25 History capsule,delayed release (Nexium) furosemide 20 mg tablet 20 mg PO QAM PRN Edema 02/17/21 04/07/25 History gabapentin 300 mg capsule 300 mg PO QPM 07/14/24 04/07/25 History albuterol sulfate 90 mcg/actuation 2 puff inhalation QID PRN 04/07/25 04/07/25 History aerosol inhaler Shortness Of Breath Or Wheezing bupropion HCl 150 mg 24 hr tablet, 150 mg PO HS 04/07/25 04/07/25 History extended release carvedilol 6.25 mg tablet 6.25 mg PO BID 04/07/25 04/07/25 History famotidine 20 mg tablet 20 mg PO HS 04/07/25 04/07/25 History fluticasone propionate 50 1 spray intranasal DAILY PRN 04/07/25 04/07/25 History mcg/actuation nasal Congestion spray,suspension gabapentin 100 mg capsule 100 mg PO QAM 04/07/25 04/07/25 History mv-mn-folic 200 mcg-vit K 15 1 cap PO QAM 04/07/25 04/07/25 History mcg-lutein 5 mg-zeaxanthin 1 mg capsule (PreserVision AREDS 2 Plus Multivit) ondansetron HCl 8 mg tablet 8 mg PO Q6H PRN Nausea And Vomiting 04/07/25 04/07/25 History prochlorperazine maleate 10 mg 10 mg PO Q6H PRN Nausea And 04/07/25 04/07/25 History tablet Vomiting Past Med/Surg History Problem List (Updated 04/07/25 @ 14:35 by Pau Fairbanks MD) Elevated troponin (Acute) Elevated brain natriuretic peptide (BNP) level (Acute) Pleural effusion, bilateral (Acute) Acute dyspnea (Acute) COVID-19 (Acute) Lymphedema of arm Encounter for pre-operative examination Malignant neoplasm of upper-outer quadrant of left breast in female, estrogen receptor positive (Chronic 10/31/19) Medical History Basal cell carcinoma nose Diastolic heart failure pt denies Diabetes mellitus "borderline" Recurrent headache MRI of brain with sedation (03/2023) no findings. Breast cancer Dx 2018, s/p chemo/XRT Fatty liver disease, nonalcoholic Neuropathy Bronchial asthma Stable History of migraine Rheumatoid arthritis stable without medical therapy Restrictive lung disease Carotid stenosis follows with vascular ([facility]) B/L ICA stenosis < 50% Morbid obesity Chronic back pain Fibromyalgia GI bleed 1997 12/ stomach ulcer Irritable bowel disease Glaucoma Depression Anxiety Vertigo hx BPPV, no issues x months Hypertension Hyperlipidemia Surgical History Hx of right cataract extraction w/right hydrus stent insert Status post surgery removal of excess skin from the axilla/flank area (August 2023) History of Matt fundoplication LISTED ON ABOVE LIST, BUT PT DENIES H/O surgical procedure A-port insertion: 11/26/19: MAC sedation at [facility] has since been removed. History of bilateral mastectomy (07/07/20) with L axilla dissection (performed by Dr. Homar Sarah) History of left breast biopsy (10/31/19) Positive - Invasive CA, ER/WA+, HER2-, + axilla LN History of surgery (1979) Repair of broken nose and right cheek bone History of ovarian cystectomy (1976) History of breast surgery (~1979) Bilat Breast Excisions - Benign - @ [facility] History of cholecystectomy (1996) History of appendectomy (1989) History of esophagogastroduodenoscopy (EGD) 01/24/2014, 11/07/14, 07/25/19 ([facility]) History of colonoscopy 2011, 2017 History of tonsillectomy and adenoidectomy (1980) History of bilateral tubal ligation (1985) History of dilatation and curettage Multiple History of total abdominal hysterectomy and bilateral salpingo-oophorectomy (1989) History of section (1985) X 1 History of repair of rotator cuff (05/28/13) RIGHT History of herniorrhaphy (~2000) 2001 x10 repairs with implanted mesh H/O exploratory laparotomy (1997) Emergency ulcer repair History of tooth extraction wisdom teeth History of nasal septoplasty (08/12/16) Family History Mother , Passed age 77 of metastatic cancer (unknown primary) No problems noted. Father , Passed age 87 of CHF No problems noted. Aunt Breast cancer, Onset Age: 50 Maternal Family/Other Breast cancer, Onset Age: 60 Cousin Family/Other Breast cancer, Onset Age: 50 Cousin Brother No problems noted. Brother No problems noted. Daughter No problems noted. Son No problems noted. Son No problems noted. 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 Feels Safe at Home: Yes Childhood Exposure to Second-Hand Smoke: Yes Diet: low salt and regular caffeine: No during the past year weight has: remained stable Dental Care, Regularly: Yes Assistive Devices: Glasses Review of Systems Constitutional: no fever and no chills Respiratory: + cough, + chest congestion and + dyspne a Cardiovascular: + chest pain; no palpitations Physical Exam Constitutional: WD/WN, vitals as above Respiratory: normal respiratory effort, lungs clear to auscultation Cardiovascular: RRR, no murmur, no edema Results & Data Results & Data Vital Signs (Past 12 Hours) Vital Signs Temp Pulse Pulse Resp BP BP Pulse Ox 04/07/25 12:15 91 04/07/25 12:10 76 24 156/89 H 93 04/07/25 12:02 78 26 H 93 04/07/25 12:00 76 04/07/25 11:43 04/07/25 11:30 36.7 C 81 18 142/72 H 92 O2 Del Method 04/07/25 12:15 Room Air 04/07/25 12:10 Room Air 04/07/25 12:02 Room Air 04/07/25 12:00 04/07/25 11:43 Room Air 04/07/25 11:30 Room Air Laboratory Results Abnormal lab results 04/07/25 04/07/25 Range/Units 12:10 14:16 RBC 3.01 L (4.20-5.40) M/uL Hgb 10.1 L (12.0-16.0) g/dl Hct 30.4 L (37.0-47.0) % MCV 101.0 H (80.0-100.0) fL RDW Std Deviation 59.3 H (36.4-46.3) fL RDW Coeff of Yesi 16.1 H (11.5-14.5) % Lymph # (Auto) 0.64 L (1.20-3.40) K/uL Chloride 109 H (98-107) mmol/L Creatinine 0.47 L (0.6-1.2) mg/dl Glucose 171 H (70-99(Fasting)) mg/dl Calcium 7.4 L (8.6-10.3) mg/dl Total Bilirubin 1.3 H (0.2-1.0) mg/dl Alkaline Phosphatase 252 H (34-104) U/L Troponin I High Sens 29.7 H 36.0 H (0-14) pg/ml B-Natriuretic Peptide 406 H (0-100) pg/ml Diagnostic Findings Chest X-Ray 04/07/25 11:36 XR chest 1V portable HISTORY: 69 years-old Female Dyspnea COMPARISON: 07/14/2024, CT chest 04/04/2022 TECHNIQUE: AP view of the chest FINDINGS: Cardiac silhouette is enlarged. Pulmonary vascular congestion with interstitial coarsening. Right greater than left pleural effusions. Right pleural effusion demonstrates a loculated component laterally. Bibasilar and lateral left midlung consolidation. Sclerotic bony lesions. IMPRESSION: 1. Cardiomegaly with pulmonary vascular congestion. 2. Layering pleural effusions with bibasilar consolidation. The right pleural effusion is multiloculated. 3. Bony sclerotic metastasis. ACT 112: Negative or not required by law. The above report was generated using voice recognition software. It may contain grammatical, syntax or spelling errors. Electronically signed by: Jose Martin Garber M.D. 04/07/2025 1:54 PM Chest CTA 04/07/25 11:46 CT pulmonary angiogram with IV contrast History: Shortness of breath COMPARISON: None TECHNIQUE: CT angiography of the chest was performed without IV contrast followed by IV contrast, including 3D post processing CTA image reconstruction. Dose reduction techniques were achieved by using automatic exposure control and/or adjustment of mA and/or kV according to patient size and/or use of iterative reconstruction technique. FINDINGS: Diagnostic quality: Adequate There is no evidence for pulmonary embolism. The heart is not enlarged. Moderate coronary calcification. Enlarged pulmonary artery at 3.7 cm suggesting pulmonary hypertension. Mitral annular calcifications. There is no pericardial effusion. There are no abnormally enlarged hilar or mediastinal lymph nodes. The central tracheobronchial tree is clear. Moderate bilateral pleural effusions with subjacent compressive atelectasis. Limited visualized upper abdomen. No destructive osseous changes are seen. Degenerative change of the shoulder joints. Bilateral mastectomy changes. There is a thin postoperative seroma in the right chest wall surrounded by soft tissue edema. Diffuse patchy sclerosis throughout the bones of the spine, ribs, shoulders, clavicles, and sternum consistent with bony metastatic disease. IMPRESSION: No evidence for pulmonary embolism. Moderate pleural effusions. Diffuse sclerotic lesions throughout the bones consistent with metastasis. Electronically signed by Luis Angel Mayo 04-07-2025 2:32 PM Code Status & VTE Plan VTE Prophylaxis Plan VTE Prophylaxis will be ordered: Yes
[2025-04-07] MEDS ORDERED: hydrALAZINE HCL 20 MG/ML VIAL IV PRN (15:25)
[2025-04-07] MEDS: FUROSEMIDE 40 MG/4 ML VIAL IV ONE (16:04)
[2025-04-07] MEDS: ONDANSETRON INJ 2 MG/ML 2 ML VIAL IV PRN (16:26)
[2025-04-07 16:47] LABS: Appearance Urine Clear (Clear); Bacteria Urine Automated None Seen (None Seen); Bilirubin Urine Negative (Negative); Blood Urine Negative (Negative); Cast Urine Automated 0-2 /lpf (0-2); Color Urine Dark Yellow; Epithelial Cell Urine Auto 0-2 /hpf (0-2); Glucose Urine UA Negative (Negative); Ketones Urine Trace (Negative); Leukocyte Esterase Urine Trace (Negative); Nitrite Urine Negative (Negative); Protein Urine Trace (Negative); RBC Urine Automated 0-2 /hpf (0-2); Specific Gravity Urine > 1.045 (1.000-1.030); Urobilinogen Urine Positive (Negative); WBC Urine Automated 0-5 /hpf (0-5); pH Urine 6.5 (4.5-7.5)
[2025-04-07] MEDS ORDERED: ALBUTEROL HFA 8 GM INHALER INH PRN (17:12)
[2025-04-07] MEDS ORDERED: FUROSEMIDE 20 MG TAB PO PRN (17:12)
[2025-04-07] MEDS ORDERED: FLUTICASONE PROPIONATE NA SPR 16 GM BTL PRN (17:12)
[2025-04-07] MEDS: ENOXAPARIN INJ 40 MG/0.4 ML SYR SQ SCH (18:13)
[2025-04-07] MEDS: ACETAMINOPHEN 325 MG TAB PO PRN (19:29)
[2025-04-07] MEDS: GABAPENTIN 300 MG CAP PO SCH (20:39)
[2025-04-07] MEDS: DULoxetine HCL 60 MG CAP PO SCH (20:39)
[2025-04-07] MEDS: carvediloL 6.25 MG TAB PO SCH (20:39)
[2025-04-07] MEDS: buPROPion XL 150 MG TABCR PO SCH (20:39)
[2025-04-07] MEDS: TIMOLOL MALEATE 0.5% OP SOLN 5 ML BTL OPB SCH (20:42)
[2025-04-07] MEDS: DORZOLAMIDE HCL 2% OPH SOLN 10 ML BTL OPB SCH (20:45)
[2025-04-07] MEDS: BRIMONIDINE TARTRATE 0.2% 5ML OPB SCH (20:45)
[2025-04-07] MEDS: FAMOTIDINE 20 MG TAB PO SCH (20:46)
[2025-04-07] MEDS: ALBUT/IPRATROP 3MG/0.5MG NEB 3 ML VIAL NEB SCH (20:54)
[2025-04-07] MEDS ORDERED: NON-FORMULARY MEDICATION (Brimonidine-Timolol [Combigan] 0.2-0.5 % Drops) OP SCH (21:00)
[2025-04-07] MEDS ORDERED: Nursing to Pharmacy Communication SCH (21:00)
[2025-04-07] MEDS: MELATONIN 3 MG TAB PO PRN (21:21)
[2025-04-08] MEDS: PROCHLORPERAZINE MALEATE 10 MG TAB PO PRN (04:58)
[2025-04-08 06:30] LABS: INR 1.1 (0.9-1.1); Prothrombin Time 11.4 Seconds (9.0-12.0)
[2025-04-08 06:37] LABS: Albumin Level 3.7 gm/dl (3.4-5.0); Bilirubin,Total 1.5 mg/dl (0.2-1.0); Potassium 3.6 mmol/L (3.5-5.1)
[2025-04-08 06:43] LABS: Albumin Globulin Ratio 1.4 (0.9-2); Creatinine Clr Calc Pharmacy 114.3 ml/min; Globulin 2.6 gm/dl (2.5-4.0); Total Protein 6.3 gm/dl (6.0-8.3)
[2025-04-08 07:56] LABS: Basophils # (auto) 0.04 K/uL (0.00-0.20); Basophils % (auto) 0.8 %; Eosinophils # (auto) 0.16 K/uL (0.00-0.50); Hematocrit (blood only) 29.4 % (37.0-47.0); Hemoglobin 9.9 g/dl (12.0-16.0); Immature Granulocytes # (auto) 0.05 K/uL (0.01-0.20); Immature Granulocytes % (auto) 0.9 %; Lymphocytes # (auto) 0.71 K/uL (1.20-3.40); Lymphocytes % (auto) 13.4 %; Mean Corpuscular Hemoglobin 33.2 pg (25.0-34.0); Mean Corpuscular Hgb Conc 33.7 g/dL (32.0-36.0); Mean Corpuscular Volume 98.7 fL (80.0-100.0); Mean Platelet Volume 10.6 fL (9.4-12.4); Monocytes % (auto) 9.5 %; Neutrophils # (auto) 3.83 K/uL (1.40-6.50); Neutrophils % (auto) 72.4 %; Platelet Count 143 K/uL (130-400); Platelet Estimate Normal (Normal); RDW Coefficient of Variation 15.9 % (11.5-14.5); Red Blood Count 2.98 M/uL (4.20-5.40); White Blood Count 5.29 K/ul (4.8-10.8)
[2025-04-08] MEDS: CEROVITE ADV FORMULA TAB PO SCH (08:18)
[2025-04-08] MEDS: PANTOprazole 40 MG TAB PO SCH (08:18)
[2025-04-08] MEDS: ASPIRIN 81 MG ECTAB PO SCH (08:18)
[2025-04-08] MEDS: MONTELUKAST SODIUM 10 MG TABLET PO SCH (08:18)
[2025-04-08] MEDS: GABAPENTIN 100 MG CAP PO SCH (08:18)
[2025-04-08] MEDS: CALCIUM 600MG + VIT D 400 IU TAB PO SCH ×3 (08:18→20:34)
[2025-04-08] MEDS: FUROSEMIDE 40 MG TAB PO SCH (08:19)
[2025-04-08] MEDS: DORZOLAMIDE HCL 2% OPH SOLN 10 ML BTL OPB SCH (08:19)
[2025-04-08] MEDS: FAMOTIDINE 20 MG TAB PO SCH (08:25)
--- NOTE | 2025-04-08 08:40 | Cardiology Consultation ---
Date of Consultation April 08, 2025 Assessment & Plan (1) Acute dyspnea: (2) Malignant neoplasm of upper-outer quadrant of left breast in female, estrogen receptor positive: (3) Dyslipidemia: Plan Patient is a 69 yo female with medical history that includes compensated diastolic heart failure, dyslipidemia, and carotid artery stenosis, breast cancer with bone metastasis. Patient presented to the ER at [facility] on 04/07/25 with extreme SOB and some chest pain; admitted same day. Cardiology services requested for assessment and recommendations. 1. Acute dyspnea -No anginal complaints. -SOB at rest and exertion. Requiring O2 via nasal cannula and elevation of head of bed. -Slightly elevated troponin on admission, Trop HS 34.2; 35.0 today. -CXR 04/07/25 shows layering pleural effusions with bibasilar consolidation. -Chest CTA 04/07/25 shows no evidence for PE, moderate pleural effusions, bone metastasis -Cardiac echo, [facility] 03/28/25 shows low normal LVEF of 50-54% with borderline left ventricular hypokinesis -PET/CT scan 01/21/35: shows trace R pleural effusion and new small volume ascites However, chest CTA 04/07/25 with marked increase in pleural effusion (right > left) -proceed with IV diuretics 2. Left Breast cancer, Dx Oct 2019 -Managed by Dr. Christiansen, [facility] Heme/Onc. -Current Tx: -Capecitabine 1650mg (3-500mg + 1-150mg tab) twice a day for 1 week followed by 1 week off, started on 02/06/25; -Xgeva every 4 weeks (started on 03/22/2024) -Monthly Vitamin B12 1,000 mcg, IM -LLE edema with neg Doppler 03/08/25 3. Dyslipidemia. - Optimal LDL cholesterol goal is less than 70 mg/dL. - Patient with documented intolerance to pravastatin, atorvastatin, rosuvastatin, and ezetimibe. + - Fatty liver disease. - PCSK9 inhibitor therapy approved, noncompliant. - Last available LDL cholesterol 167 mg/dL on 01/16/2024. 4. Diastolic HF -Cardiac echo, [facility] 03/28/25 shows normal LVEF of 50-54% 5. Carotid artery stenosis - Duplex in July 2023 revealed stable mild bilateral internal carotid artery disease. - Routine routine surveillance monitoring, due July 2026. Telemetry reviewed: NSR overnight, HR 70s; NSR today, HR 70s. BP 132/72, P [address] Andrade. Further recommendations pending his evaluation and assessment I spent a total of 55 minutes on the date of service in preparation, delivery, and documentation of the care provided to this patient, excluding any time spent in the performance of separately billed services. Ceasar Cole, ALIAC Department of Cardiology, [facility] This chart was completed in part utilizing Speech Voice Recognition Software. Grammatical errors, random word insertions, pronoun errors, and incomplete sentences are an occasional consequence of this system due to software li mitations, ambient noise, and hardware issues. Any formal questions or concerns about the content, text, or information contained within the body of this dictation should be directly addressed to the provider for clarification. Supervising Physician Co-Signing Physician Notes Attending attestation: Case reviewed with the advanced practitioner. I have personally performed a history and physical examination on the patient. I have reviewed the advanced practitioner's documentation on the date of service referenced in note, and I agree with, and take responsibility for the plan of care. Subjective: Patient describes progressive shortness of breath over the last few weeks. Describes that she feels like she was "drowning ". Exam: Pulmonary: Decreased breath sounds bilaterally the bases, right worse than the left Cardiovascular regular rhythm, no murmurs, no edema Data: EKG performed on admission 04/04/2025 at 11:39 AM revealed sinus rhythm with age- indeterminate septal infarct pattern, nonspecific repolarization abnormalities. High-sensitivity troponin mildly elevated, flat trend Recent transthoracic echocardiogram performed as an outpatient on 03/29/2025 revealing borderline diffuse left ventricular hypokinesis, low normal LVEF 50 to 54%, with mildly abnormal global longitudinal strain, Grade 1 diastolic dysfunction Mitral annular calcification as well as diffuse coronary artery calcification noted at the time of recent CT PET scan performed as an outpatient in January,, as well as a CT angiogram performed on presentation to the hospital. Impression/ Plan: Shortness of breath, with noted moderate to large right pleural effusion, moderate left pleural effusion Presentation suggestive of acute heart failure with preserved ejection fraction. -Per review of PET/CT images performed in January,, mildly increased right pleural effusion was noted that time, significant interval change noted. -Patient is certainly at risk for underlying coronary heart disease with noted coronary calcification, and a history of significant elevation of the LDL cholesterol with medication intolerance/nonadherence -Patient has a history of breast carcinoma, with recurrence noted a year ago, with metastasis to the bones. Her initial chemotherapy regimen in 2019 included doxorubicin per review of her outpatient records. LVEF was normal at time of echocardiogram in 2021, low normal noted earlier this month. Will proceed with a repeat resting echocardiogram for reassessment of the left ventricular s ystolic function. No pericardial effusion noted at time of CT performed on presentation last night per report and per my personal review of the CT images. -Will discontinue oral furosemide and start more aggressive IV diuretics, with furosemide 40 mg IV twice daily. Potassium supplementation ordered. Case discussed with Dr. Malik of pulmonary medicine. We share concerns with regards to the patient's risk at this being a potential malignant pleural effusion. Will therefore proceed with IR guided thoracentesis for both therapeutic and diagnostic purposes with plans to send the fluid for cytology. I spent a total of 25 minutes coordinating, documenting, and providing care for this patient excluding time spent in the performance of separately billed services or time spent by another provider. Tirso Andrade DO History of Present Illness Reason for Consultation: SOB and concern for abnormal EKG Requesting Physician: Silvino gil Attending Physician: Estephania Maher MD History of Present Illness Patient is a 69 yo female with medical history that includes compensated diastolic heart failure, dyslipidemia, and carotid artery stenosis, breast ca ncer with bone metastasis. Patient presented to the ER at [facility] on 04/07/25 with extreme SOB; admitted same day. Cardiology services requested for assessment and recommendations. At time of evaluation this morning, patient is resting in bed without acute distress, requiring O2 via nasal cannula. Daughter at bedside. Patient states she experienced concerning SOB and some chest discomfort that started yesterday, 04/07/25. She states the SOB occurred with rest and exertion and it was difficult to breathe, which caused her to go to the ER for evaluation and treatment. She states she had some chest discomfort in the center of her chest that was a dull and aching sensation and subsided after a few seconds. She denies chest pain but complains of continued SOB, even while resting in bed. Patient states she "feels like she is drowning." She states the supplemental O2 somewhat helps alleviate her symptoms. Patient denies dizziness, blurry vision, abdominal pain, or any other issues. Patient following with [facility] hematology oncology for h/o breast cancer. Imaging on 03/28/25 showed trace pleural effusion. Telemetry reviewed: NSR overnight, HR 70s; NSR today, HR 70s. BP 132/72, P 70 Labs 04/08/25 show Trop I HS 35.0 (34.2 on 04/07/25), Hgb 9.9, Hct 29.4, RBC 2.98, Srikanth 7.0. Allergies Allergy/AdvReac Type Severity Reaction Status Date / Time amoxicillin Allergy Severe Augmentin- Verified 04/07/25 13:39 itchy, swelling, dyspnea clavulanic acid Allergy Severe Augmentin- Verified 04/07/25 13:39 itchy, swelling, dyspnea Penicillins Allergy Severe Augmentin- Verified 04/07/25 13:39 itchy, swelling, dyspnea lisinopril Allergy Mild cough/swell Verified 04/07/25 13:39 ing Sulfa (Sulfonamide Allergy Mild Rash Verified 04/07/25 13:39 Antibiotics) Home Medications Medication Instructions Recorded Confirmed Type brimonidine 0.2 %-timolol 0.5 % 1 drp ophthalmic (eye) BID 08/15/18 04/07/25 History eye drops (Combigan) duloxetine 60 mg capsule,delayed 60 mg PO HS 07/18/19 04/07/25 History release (Cymbalta) montelukast 10 mg tablet 10 mg PO QAM 11/26/19 04/07/25 History dorzolamide 2 % eye drops 1 drp OPB BID 01/19/20 04/07/25 History aspirin 81 mg tablet,delayed 81 mg PO QAM 08/12/20 04/07/25 History release calcium 600 mg (as 1 tab PO QAM 08/12/20 04/07/25 History carbonate)-vitamin D3 20 mcg (800 unit) tablet (Caltrate with Vitamin D3) esomeprazole magnesium 40 mg 40 mg PO QAM 08/12/20 04/07/25 History capsule,delayed release (Nexium) furosemide 20 mg tablet 20 mg PO QAM PRN Edema 02/17/21 04/07/25 History gabapentin 300 mg capsule 300 mg PO QPM 07/14/24 04/07/25 History albuterol sulfate 90 mcg/actuation 2 puff inhalation QID PRN 04/07/25 04/07/25 History aerosol inhaler Shortness Of Breath Or Wheezing bupropion HCl 150 mg 24 hr tablet, 150 mg PO HS 04/07/25 04/07/25 History extended release carvedilol 6.25 mg tablet 6.25 mg PO BID 04/07/25 04/07/25 History famotidine 20 mg tablet 20 mg PO HS 04/07/25 04/07/25 History fluticasone propionate 50 1 spray intranasal DAILY PRN 04/07/25 04/07/25 History mcg/actuation nasal Congestion spray,suspension gabapentin 100 mg capsule 100 mg PO QAM 04/07/25 04/07/25 History mv-mn-folic 200 mcg-vit K 15 1 cap PO QAM 04/07/25 04/07/25 History mcg-lutein 5 mg-zeaxanthin 1 mg capsule (PreserVision AREDS 2 Plus Multivit) ondansetron HCl 8 mg tablet 8 mg PO Q6H PRN Nausea And Vomiting 04/07/25 04/07/25 History prochlorperazine maleate 10 mg 10 mg PO Q6H PRN Nausea And 04/07/25 04/07/25 History tablet Vomiting Patient History Medical History Basal cell carcinoma nose Diastolic heart failure pt denies Diabetes mellitus "borderline" Recurrent headache MRI of brain with sedation (03/2023) no findings. Breast cancer Dx 2018, s/p chemo/XRT Fatty liver disease, nonalcoholic Neuropathy Bronchial asthma Stable History of migraine Rheumatoid arthritis stable without medical therapy Restrictive lung disease Carotid stenosis follows with vascular ([facility]) B/L ICA stenosis < 50% Morbid obesity Chronic back pain Fibromyalgia GI bleed 1997 2/2 stomach ulcer Irritable bowel disease Glaucoma Depression Anxiety Vertigo hx BPPV, no issues x months Hypertension Hyperlipidemia Surgical History Hx of right cataract extraction w/right hydrus stent insert Status post surgery removal of excess skin from the axilla/flank area (August 2023) History of Matt fundoplication LISTED ON ABOVE LIST, BUT PT DENIES H/O surgical procedure A-port insertion: 11/26/19: MAC sedation at [facility] has since been removed. History of bilateral mastectomy (07/07/20) with L axilla dissection (performed by Dr. Homar Sarah) History of left breast biopsy (10/31/19) Positive - Invasive CA, ER/NH+, HER2-, + axilla LN History of surgery (1979) Repair of broken nose and right cheek bone History of ovarian cystectomy (1976) History of breast surgery (~1979) Bilat Breast Excisions - Benign - @ [facility] History of cholecystectomy (1996) History of appendectomy (1989) History of esophagogastroduodenoscopy (EGD) 01/24/2014, 11/07/14, 07/25/19 ([facility]) History of colonoscopy 2017 History of tonsillectomy and adenoidectomy (1980) History of bilateral tubal ligation (1985) History of dilatation and curettage Multiple History of total abdominal hysterectomy and bilateral salpingo-oophorectomy (1989) History of section (1985) X 1 History of repair of rotator cuff (05/28/13) RIGHT History of herniorrhaphy (~2000) 2000 x10 repairs with implanted mesh H/O exploratory laparotomy (1997) Emergency ulcer repair History of tooth extraction wisdom teeth History of nasal septoplasty (08/12/16) Family History Mother , Passed age 77 of metastatic cancer (unknown primary) No problems noted. Father , Passed age 87 of CHF No problems noted. Aunt Breast cancer, Onset Age: 50 Maternal Family/Other Breast cancer, Onset Age: 60 Cousin Family/Other Breast cancer, Onset Age: 50 Cousin Brother No problems noted. Brother No problems noted. Daughter No problems noted. Son No problems noted. Son No problems noted. Other No family history of adverse response to anesthesia Social History Smoking Status: Former smoker Tobacco Type: Cigarettes packs per day: 1; Smoking End Date: 37 years ago; Second Hand Exposure: No; Do You Dip or Chew Tobacco: No; Tobacco Cessation Education Requested by Patient: No Hx Alcohol Use: No Hx Substance Use: No Preferred Language: Lithuanian Communication Ability: Effective Visual Impairment: Limited Hearing Ability: Normal Business Support Assistant Required: No Beliefs That Will Affect Care: None marital status: Current Living Situation: Spouse Current Living Situation Comment: Lives with current occupational status: retired current occupation: Retired [employer] Other Information That Helps Us Care for You: No Feels Safe at Home: Yes Safety Concerns: Feels Safe At This Time Childhood Exposure to Second-Hand Smoke: Yes Diet: low salt and regular caffeine: No during the past year weight has: remained stable Dental Care, Regularly: Yes Assistive Devices: Cane and Glasses Assistive Devices Comment: readers Review of Systems Review of Systems: All systems reviewed & are unremarkable except as noted in HPI & below Physical Exam Constitutional: WD/WN, vitals as above Eyes: PERRL, conjunctivae normal, anicteric sclerae ENMT: external ear and nose normal, oropharynx normal Neck: trachea midline Respiratory: + abnormal respiratory pattern (SOB, req uiring O2 via nasal cannula and elevation of head of bed) Auscultation: + diminished lung sounds (Decreased on right base) Cardiovascular: Rate/Rhythm: regular rate and regular rhythm Heart Sounds: + murmur (mitral stenosis noted) Vessels: no JVD and no carotid bruit Extremities: no edema Skin: no rashes, warm and dry Psychiatric: A+Ox3, euthymic affect Results & Data Vital Signs (Past 12 Hours) Vital Signs Temp Pulse Pulse Resp BP Pulse Ox O2 Del Method 04/08/25 08:21 36.3 C L 70 18 132/72 93 Nasal Cannula 04/08/25 07:27 75 18 86 L Room Air 04/08/25 07:00 Room Air 04/08/25 03:40 36.4 C L 86 16 128/77 90 Room Air 04/07/25 23:35 36.5 C 71 16 144/63 H 90 Room Air 04/07/25 22:20 73 04/07/25 20:55 77 18 94 Room Air O2 Flow Rate 04/08/25 08:21 2 04/08/25 07:27 04/08/25 07:00 04/08/25 03:40 04/07/25 23:35 04/07/25 22:20 04/07/25 20:55 Laboratory Results Cardiac Enzymes 04/07/25 04/07/25 04/07/25 Range/Units 12:10 14:16 16:06 AST 34 (13-39) U/L Troponin I High Sens 29.7 H 36.0 H 36.5 H (0-14) pg/ml B-Natriuretic Peptide 406 H (0-100) pg/ml 04/07/25 04/07/25 04/08/25 Range/Units 18:09 22:42 00:54 AST (13-39) U/L Troponin I High Sens 36.2 H 34.2 H 35.0 H (0-14) pg/ml B-Natriuretic Peptide (0-100) pg/ml 04/08/25 Range/Units 05:55 AST 36 (13-39) U/L Troponin I High Sens (0-14) pg/ml B-Natriuretic Peptide (0-100) pg/ml Coagulation 04/07/25 04/07/25 04/08/25 Range/Units 12:10 12:32 05:55 PT Cancelled 11.2 11.4 B-Natriuretic Peptide 406 H (0-100) pg/ml CBC 04/07/25 04/08/25 Range/Units 12:10 05:55 WBC 5.39 5.29 (4.8-10.8) K/ul RBC 3.01 L 2.98 L (4.20-5.40) M/uL Hgb 10.1 L 9.9 L (12.0-16.0) g/dl Hct 30.4 L 29.4 L (37.0-47.0) % Plt Count 141 143 (130-400) K/uL Neut # (Auto) 4.08 3.83 (1.40-6.50) K/uL Lymph # (Auto) 0.64 L 0.71 L (1.20-3.40) K/uL [place] # (Auto) 0.48 0.50 (0.11-0.59) K/uL Eos # (Auto) 0.14 0.16 (0.00-0.50) K/uL Baso # (Auto) 0.03 0.04 (0.00-0.20) K/uL Comprehensive Metabolic Panel 04/07/25 04/08/25 Range/Units 12:10 05:55 Sodium 140 140 (136-145) mmol/L Potassium 3.8 3.6 (3.5-5.1) mmol/L Chloride 109 H 106 (98-107) mmol/L Carbon Dioxide 24 26 (21-32) mmol/L BUN 9 9 (6-23) mg/dl Creatinine 0.47 L 0.53 L (0.6-1.2) mg/dl Glucose 171 H 132 H (70-99(Fasting)) mg/dl Calcium 7.4 L 7.0 L (8.6-10.3) mg/dl AST 34 36 (13-39) U/L ALT 17 17 (7-52) U/L Alkaline Phosphatase 252 H 254 H (34-104) U/L Total Protein 6.4 6.3 (6.0-8.3) gm/dl Albumin 3.8 3.7 (3.4-5.0) gm/dl Intake and Output 04/07/25 04/08/25 04/08/25 22:59 06:59 14:59 Intake Total 240 / 240 Output Total 500 / 650 150 / 650 Balance -500 / -410 90 / -410 Intake: Oral 240 / 240 Output: Urine 300 / 450 150 / 450 Other 200 / 200 Other: # Unmeasured Voids 1 Weight 98.475 kg 98.611 kg Weight Measurement Method [facility] Diagnostic Findings EKG 04/07/25: NSR, left anterior fascicular block CXR 04/07/25: 1. Cardiomegaly with pulmonary vascular congestion. 2. Layering pleural effusions with bibasilar consolidation. The right pleural effusion is multiloculated. 3. Bony sclerotic metastasis. Chest CTA 04/07/25: No evidence for pulmonary embolism. Moderate pleural effusions. Diffuse sclerotic lesions throughout the bones consistent with metastasis [facility] records reviewed: Echo, [facility] 03/28/25: The left ventricular cavity size is normal. The LV wall thickness is moderately increased (concentric). The basal septum is thickened and angulated consistent with sigmoid septum. There is borderline diffuse left ventricular hypokinesis. The global longitudinal strain (GLS) is - 12 %. Normal left ventricular systolic function is suggested if GLS is -14% to -30%. The qualitative LV ejection fraction is 50-54% (normal). The left ventricular diastolic function is mildly abnormal (grade I). There is moderate mitral annular calcification. Mild mitral regurgitation is present. PET/CT scan 01/21/35: Chest: Trace R pleural effusion Abd/Pelvis: new small volume ascites IMPRESSION: 1. Recurrent activity associated with disseminated sclerotic osseous metastases, some of which are increasing in size. 2. New mildly active nodularity within a left spigelian hernia and a retrocaval lymph node may represent additional sites of disease. Associated small volume ascites.
[2025-04-08] MEDS: ONDANSETRON 8MG OD TAB PO PRN (09:03)
--- NOTE | 2025-04-08 09:16 | Pulmonary Consultation ---
Date of Consultation April 08, 2025 Assessment & Plan (1) Acute respiratory failure with hypoxia: (2) Pleural effusion, bilateral: (3) Acute heart failure with preserved ejection fraction (HFpEF): (4) Malignant neoplasm of upper-outer quadrant of left breast in female, estrogen receptor positive: Plan CTA chest 04/07/2025 personally reviewed: Large right and moderate left-sided pleural effusion Minimal compressive atelectasis of the right lower lobe Linear atelectasis of the inferior lobe of the lingula No significant mediastinal lymphadenopathy 2D echo 09/08/2022: EF 60%, mild concentric LVH, RV normal in size and function -- Acute hypoxic respiratory failure Likely secondary to bilateral pleural effusion Respiratory BioFire negative for everything on 04/07/2025 BNP 406 --Bilateral pleural effusion Etiology is not clear Could be from HFpEF, from malignancy or from the chemotherapy that she is getting --History of breast cancer Initial diagnosis was 2018, relapse in 2023 Was treated with doxorubicin back in 2019. Capecitabine 1650mg (3-500mg + 1-150mg tab) twice a day for 1 week followed by 1 week off, started on 02/06/25 Denosumab started 03/22/2024 Plan: In/out: -410, urine output 650 Recommend aggressive diuresis to keep the patient negative balance of at least 1 L on a daily basis Given that the patient has history of breast cancer, I think it is reasonable to do a therapeutic as well as diagnostic tap of the right side. And follow-up cytology BiPAP nightly and as needed shortness of breath 2D echo if not already ordered Case was discussed with cardiology Dr. Andrade, interventional radiology as well as RN at bedside I spent more than 75 minutes looking in the chart, images, discussing the plan of care with the patient, RN as well as primary team Please note the above document was generated using voice recognition software. It may contain grammatical, syntax or spelling errors.Any formal questions or concerns about the content, text or information contained within the body of this dictation should be directly addressed to the provider for clarification. History of Present Illness Attending Physician: Estephania Maher MD History of Present Illness 69-year-old female was admitted to the hospital because of worsening shortness of breath Past medical history: Hypertension, GERD, IBS-mixed, breast cancer with mets to the bone Pulmonary consulted for pleural effusions Patient's daughter was in the room at the time of examination. Patient just returned from washroom. She was saturating 97% on 2 L, is able to take her off oxygen She was still saturating 92-93% on room air. She stated that she has been having issues with her shortness of breath going on since her last month or so, progressively getting worse It is worse when she is laying down. Denies any fever or chills No cough, no chest pain. She does have history of small right-sided pleural effusion as latest as January 2025 when she had a PET/CT done. No night sweats, no unintentional weight loss No unusual headache or blurry vision Social history: Approximately [id number] smoking history, quit around the age of 40 Allergies Allergy/AdvReac Type Severity Reaction Status Date / Time amoxicillin Allergy Severe Augmentin- Verified 04/07/25 13:39 itchy, swelling, dyspnea clavulanic acid Allergy Severe Augmentin- Verified 04/07/25 13:39 itchy, swelling, dyspnea Penicillins Allergy Severe Augmentin- Verified 04/07/25 13:39 itchy, swelling, dyspnea lisinopril Allergy Mild cough/swell Verified 04/07/25 13:39 ing Sulfa (Sulfonamide Allergy Mild Rash Verified 04/07/25 13:39 Antibiotics) Home Medications Medication Instructions Recorded Confirmed Type brimonidine 0.2 %-timolol 0.5 % 1 drp ophthalmic (eye) BID 08/15/18 04/07/25 History eye drops (Combigan) duloxetine 60 mg capsule,delayed 60 mg PO HS 07/18/19 04/07/25 History release (Cymbalta) montelukast 10 mg tablet 10 mg PO QAM 11/26/19 04/07/25 History dorzolamide 2 % eye drops 1 drp OPB BID 01/19/20 04/07/25 History aspirin 81 mg tablet,delayed 81 mg PO QAM 08/12/20 04/07/25 History release calcium 600 mg (as 1 tab PO QAM 08/12/20 04/07/25 History carbonate)-vitamin D3 20 mcg (800 unit) tablet (Caltrate with Vitamin D3) esomeprazole magnesium 40 mg 40 mg PO QAM 08/12/20 04/07/25 History capsule,delayed release (Nexium) furosemide 20 mg tablet 20 mg PO QAM PRN Edema 02/17/21 04/07/25 History gabapentin 300 mg capsule 300 mg PO QPM 07/14/24 04/07/25 History albuterol sulfate 90 mcg/actuation 2 puff inhalation QID PRN 04/07/25 04/07/25 History aerosol inhaler Shortness Of Breath Or Wheezing bupropion HCl 150 mg 24 hr tablet, 150 mg PO HS 04/07/25 04/07/25 History extended release carvedilol 6.25 mg tablet 6.25 mg PO BID 04/07/25 04/07/25 History famotidine 20 mg tablet 20 mg PO HS 04/07/25 04/07/25 History fluticasone propionate 50 1 spray intranasal DAILY PRN 04/07/25 04/07/25 History mcg/actuation nasal Congestion spray,suspension gabapentin 100 mg capsule 100 mg PO QAM 04/07/25 04/07/25 History mv-mn-folic 200 mcg-vit K 15 1 cap PO QAM 04/07/25 04/07/25 History mcg-lutein 5 mg-zeaxanthin 1 mg capsule (PreserVision AREDS 2 Plus Multivit) ondansetron HCl 8 mg tablet 8 mg PO Q6H PRN Nausea And Vomiting 04/07/25 04/07/25 History prochlorperazine maleate 10 mg 10 mg PO Q6H PRN Nausea And 04/07/25 04/07/25 History tablet Vomiting Patient History Medical History Basal cell carcinoma nose Diastolic heart failure pt denies Diabetes mellitus "borderline" Recurrent headache MRI of brain with sedation (03/2023) no findings. Breast cancer Dx 2018, s/p chemo/XRT Fatty liver disease, nonalcoholic Neuropathy Bronchial asthma Stable History of migraine Rheumatoid arthritis stable without medical therapy Restrictive lung disease Carotid stenosis follows with vascular ([facility]) B/L ICA stenosis < 50% Morbid obesity Chronic back pain Fibromyalgia GI bleed 1997 2/2 stomach ulcer Irritable bowel disease Glaucoma Depression Anxiety Vertigo hx BPPV, no issues x months Hypertension Hyperlipidemia Surgical History Hx of right cataract extraction w/right hydrus stent insert Status post surgery removal of excess skin from the axilla/flank area (August 2023) History of Matt fundoplication LISTED ON ABOVE LIST, BUT PT DENIES H/O surgical procedure A-port insertion: 11/26/19: MAC sedation at [facility] has since been removed. History of bilateral mastectomy (07/07/20) with L axilla dissection (performed by Dr. Homar Sarah) History of left breast biopsy (10/31/19) Positive - Invasive CA, ER/RI+, HER2-, + axilla LN History of surgery (1979) Repair of broken nose and right cheek bone History of ovarian cystectomy (1976) History of breast surgery (~1979) Bilat Breast Excisions - Benign - @ [facility] History of cholecystectomy (1996) History of appendectomy (1989) History of esophagogastroduodenoscopy (EGD) 01/24/2014, 11/07/14, 07/25/19 ([facility]) History of colonoscopy 2011, 2017 History of tonsillectomy and adenoidectomy (1980) History of bilateral tubal ligation (1985) History of dilatation and curettage Multiple History of total abdominal hysterectomy and bilateral salpingo-oophorectomy (1989) History of section (1985) X 1 History of repair of rotator cuff (05/28/13) RIGHT History of herniorrhaphy (~2000) 2000 x10 repairs with implanted mesh H/O exploratory laparotomy (1997) Emergency ulcer repair History of tooth extraction wisdom teeth History of nasal septoplasty (08/12/16) Family History Mother , Passed age 77 of metastatic cancer (unknown primary) No problems noted. Father , Passed age 87 of CHF No problems noted. Aunt Breast cancer, Onset Age: 50 Maternal Family/Other Breast cancer, Onset Age: 60 Cousin Family/Other Breast cancer, Onset Age: 50 Cousin Brother No problems noted. Brother No problems noted. Daughter No problems noted. Son No problems noted. Son No problems noted. Other No family history of adverse response to anesthesia Social History Smoking Status: Former smoker Tobacco Type: Cigarettes packs per day: 1; Smoking End Date: 37 years ago; Second Hand Exposure: No; Do You Dip or Chew Tobacco: No; Tobacco Cessation Education Requested by Patient: No Hx Alcohol Use: No Hx Substance Use: No Preferred Language: Tajik Communication Ability: Effective Visual Impairment: Limited Hearing Ability: Normal Core Dropper Required: No Beliefs That Will Affect Care: None marital status: Current Living Situation: Spouse Current Living Situation Comment: Lives with current occupational status: retired 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 Other Information That Helps Us Care for You: No Feels Safe at Home: Yes Safety Concerns: Feels Safe At This Time Childhood Exposure to Second-Hand Smoke: Yes Diet: low salt and regular caffeine: No during the past year weight has: remained stable Dental Care, Regularly: Yes Assistive Devices: None Assistive Devices Comment: readers Review of Systems 2 Review of Systems: All systems reviewed & are unremarkable except as noted in HPI & below Physical Exam 2 Physical Exam: Constitutional: No acute distress HEENT: EOMI, PERRLA Respiratory system: Decreased air entry bilaterally, no wheeze, no rhonchi, mild crackles bilaterally CVS: S1-S2 positive, no murmurs or gallops, accentuated P2 Abdomen: Soft, nontender, nondistended, positive bowel sounds x4 Extremities: +2 pulses bilaterally radialis/ dorsalis pedis, no cyanosis, minimal pitting edema bilateral lower extremity, left greater than right Neuro: Awake alert oriented x3 Psych: Normal mood and affect G/U: No Lopez Skin: no rashes, warm and dry Lymphatic: no cervical or axillary lymphadenopathy Results & Data Results & Data Vital Signs (Past 12 Hours) Vital Signs Temp Pulse Pulse Resp BP Pulse Ox O2 Del Method 04/08/25 08:21 36.3 C L 70 18 132/72 93 Nasal Cannula 04/08/25 07:27 75 18 86 L Room Air 04/08/25 07:00 Room Air 04/08/25 03:40 36.4 C L 86 16 128/77 90 Room Air 04/07/25 23:35 36.5 C 71 16 144/63 H 90 Room Air 04/07/25 22:20 73 O2 Flow Rate 04/08/25 08:21 2 04/08/25 07:27 04/08/25 07:00 04/08/25 03:40 04/07/25 23:35 04/07/25 22:20 Laboratory Results 04/08/25 05:55 04/08/25 05:55 PG Care Time/CCT Total # of Minutes Spent Total Time Spent with Patient: Total time spent is greater than 50% in coordination of care (as documented) at patient's floor/unit and/or counseling patient: Coding Level of Care Code 39587 INT INP/OBS CARE 3/75MIN Diagnoses Acute respiratory failure with hypoxia J96.01 Pleural effusion, bilateral J90 Acute heart failure with preserved ejection fraction (HFpEF) I50.31 Malignant neoplasm of upper-outer quadrant of left breast in female, estrogen receptor positive C50.412; Z17.0
[2025-04-08 10:11] LABS: Albumin Level 3.8 gm/dl (3.4-5.0); Bilirubin,Total 1.2 mg/dl (0.2-1.0); Total Protein 6.3 gm/dl (6.0-8.3)
--- NOTE | 2025-04-08 12:31 | Hospitalist Progress Note ---
Date of Service April 08, 2025 Assessment & Plan (1) Pleural effusion, bilateral: Plan 69F PMH breast ca w/mets to the bone (diagnosed February,; currently off chemo due to weakness, last dose March 26), asthma, JUDITH, MDD, htn, gerd, IBS-M who presents for worsening SOB, chest pain for about a month. Pt reports she was actually having better weak in terms of SOB and then started w/ acute worsening sob on the day of arrival. She also had midsternal chest pain, constant, exacerbated w/ breathing and deep palpation. Pt denied fever, sore throat. She is being managed for the following: Progressive dyspnea Chest pain: Likely secondary to bony metastasis. Trop flat trends in 30s. Pt has constant chest pain. Await Echo. ro ACS, cardio on board. Breast ca w/mets to the bone Hyperbilirubinemia, elevated alk phos: in the setting of bone mets per onc Admitting CXR: Cardiomegaly with pulmonary vascular congestion. Layering pleural effusions with bibasilar consolidation. The right pleural effusion is multiloculated. Bony sclerotic metastasis. CTA Chest: No evidence for pulmonary embolism. Moderate pleural effusions. Diffuse sclerotic lesions throughout the bones consistent with metastasis. BNP 406, RPP neg, WBC nl at presentation. SOB at mostly w/ exertion 2/2 increasing pleural effusion iso metastatic cancer. Pulm on board, plan for IR thoracentesis and aggressive diuresis. Admitting physician d/w Dr Christiansen, no additional recs at this time, continue to hold chemo for now. IS, Bowel reg, Pain control. c/w lasix, monitor Is and Os. Macrocytic anemia: likely iso chemotherapy. Monitor. get folate and b12 level and iron studies. Other chronic medical conditions: asthma, HTN, GERD, JUDITH --> c/w or resume home meds as able. DVT ppx Admission and Anticipated Discharge Date Admission Date: April 07, 2025 Subjective Patient was seen and examined at bedside. Patient was lying in bed, on 2L NC O2, NAD, resting comfortably. Patient denies any new complaints since yesterday, denies sore throat or fever. She reports constant midsternal chest pain. Patient reports her chest pain has been constant for about a month, exacerbated with deep breathing and palpation. Physical Exam Physical Exam: GENERAL: Alert and oriented x3. NAD, on 2L NC O2. Appears ill/sick. HEENT: No pallor, no icterus. Pupils equal, round and reactive to light. Oral mucosa moist. NECK: No JVD, no neck masses. HEART: S1 and S2 heard. Regular rate and rhythm. + murmur, no gallop. RESPIRATORY SYSTEM: Normal AP diameter. No accessory muscle use. No wheezing, no crackles. decreased b/b breath sounds. ABDOMEN: Soft, bowel sounds present, nontender, no distention. CENTRAL NERVOUS SYSTEM: No facial droop. Speech is clear. Obeys simple commands. Moves extremities. EXTREMITIES: No edema, no erythema seen. Results & Data Results & Data Vital Signs (Past 12 Hours) Vital Signs Temp Pulse Resp BP Pulse Ox O2 Del Method O2 Flow Rate 04/08/25 12:14 36.4 C L 72 18 138/80 90 Room Air 04/08/25 08:21 36.3 C L 70 18 132/72 93 Nasal Cannula 2 04/08/25 07:27 75 18 86 L Room Air 04/08/25 07:00 Room Air 04/08/25 03:40 36.4 C L 86 16 128/77 90 Room Air
--- NOTE | 2025-04-08 14:06 | XRay Report ---
XR chest 1V not portable CLINICAL HISTORY: s/p rt thora COMPARISON STUDY: 04/07/2025 FINDINGS: Stable cardiomegaly with mild pulmonary vascular congestion. There is mild opacity in the l bailey bases with mild blunting of the costophrenic angles, improved on the right and stable on the left . No pneumothorax seen. IMPRESSION: No pneumothorax. ACT 112: Negative or not required by law. Electronically signed by: Pedro Wooten M.D. 04/08/2025 2:05 PM
[2025-04-08] MEDS: POTASSIUM CHLORIDE CRTAB 20 MEQ TABCR PO STA (14:18)
[2025-04-08] MEDS: FUROSEMIDE 40 MG/4 ML VIAL IV SCH (14:18)
--- NOTE | 2025-04-08 14:39 | Ultrasound Report ---
ULTRASOUND-GUIDED RIGHT THORACENTESIS CLINICAL HISTORY: Right pleural effusion PROCEDURE: Procedure and risks were explained. Informed consent was obtained. A final timeout was com pleted. The right posterior thorax was prepped and draped in sterile fashion. 1% lidocaine was utiliz ed for skin anesthesia. Utilizing ultrasound guidance, a 5 Turkmen safety centesis catheter was advanced into the right pleura l effusion. Ultrasound images were obtained. A total of 1250 mL of cloudy pleural fluid was removed a nd sent to the lab. The catheter was removed and Band-Aid applied. The patient tolerated the procedur e well. A chest x-ray will be obtained and vital signs will be monitored postprocedure. IMPRESSION: Ultrasound-guided right thoracentesis as above. Performed, dictated, and signed by Kelechi Acevedo PA-C; to be co-signed by Dr. Pedro Wooten. Electronically signed by: Pedro Wooten M.D. 04/08/2025 2:51 PM
--- NOTE | 2025-04-08 15:54 | Electrocardiogram Report ---
Test Reason : Blood Pressure : */* mmHG Vent. Rate : 73 BPM Atrial Rate : 73 BPM P-R Int : 194 ms QRS Dur : 100 ms QT Int : 430 ms P-R-T Axes : 39 -41 73 degrees QTcB Int : 473 ms Normal sinus rhythm Left atrial enlargement Left axis deviation Minimal voltage criteria for LVH, may be normal variant Nonspecific T wave abnormality Abnormal ECG When compared with ECG of 07-Apr-2025 11:39, Criteria for Septal infarct are no longer Present Nonspecific T wave abnormality, worse in Anterolateral leads Confirmed by Tony Breaux ([id number]) on 04/08/2025 3:54:25 PM Referred By: REFERRED SELF Confirmed By: Tony Breaux
[2025-04-08 16:05] LABS: Appearance Pleural Fluid Slightly Hazy; Color Pleural Fluid Straw; RBC Pleural Fluid Auto 7000 /uL; Source Pleural Fluid Right Lung; WBC Pleural Fluid Auto 481 /uL
[2025-04-08 16:13] LABS: Total Protein Pleural Fluid 4.4 gm/dl
[2025-04-08] MEDS: oxyCODONE HCL IR 5 MG TAB (IMMEDIATE RELEASE) PO PRN (16:35)
[2025-04-08] MEDS: POTASSIUM CHLORIDE CRTAB 20 MEQ TABCR PO SCH (16:37)
[2025-04-08] MEDS: MoRPHine SULFATE 4 MG/ML 1 ML CARP\\VIAL ONE (19:40)
[2025-04-09 04:55] LABS: Hematocrit (blood only) 31.1 % (37.0-47.0); Hemoglobin 10.3 g/dl (12.0-16.0); Mean Corpuscular Hemoglobin 33.3 pg (25.0-34.0); Mean Corpuscular Hgb Conc 33.1 g/dL (32.0-36.0); Mean Corpuscular Volume 100.6 fL (80.0-100.0); Mean Platelet Volume 10.9 fL (9.4-12.4); Platelet Count 148 K/uL (130-400); RDW Coefficient of Variation 15.9 % (11.5-14.5); RDW Standard Deviation 58.3 fL (36.4-46.3); Red Blood Count 3.09 M/uL (4.20-5.40); White Blood Count 6.97 K/ul (4.8-10.8)
[2025-04-09 05:28] LABS: BUN Creatinine Ratio 19.7 (10-20); Calcium 7.5 mg/dl (8.6-10.3); Creatinine Clr Calc Pharmacy 99.3 ml/min; Magnesium 1.6 mg/dl (1.7-2.4); Potassium 3.9 mmol/L (3.5-5.1)
[2025-04-09 05:46] LABS: Ferritin 95.6 ng/ml (8-388)
[2025-04-09] MEDS: MAGNESIUM SULFATE / D5W 1 GM/100 ML BAG IV ONE (06:14)
--- NOTE | 2025-04-09 07:05 | Pulmonology Progress Note ---
Date of Service April 09, 2025 Assessment & Plan (1) Acute respiratory failure with hypoxia: (2) Pleural effusion, bilateral: (3) Acute heart failure with preserved ejection fraction (HFpEF): (4) Malignant neoplasm of upper-outer quadrant of left breast in female, estrogen receptor positive: Plan CTA chest 04/07/2025 personally reviewed: Large right and moderate left-sided pleural effusion Minimal compressive atelectasis of the right lower lobe Linear atelectasis of the inferior lobe of the lingula No significant mediastinal lymphadenopathy 2D echo 04/08/2025: EF 50-55 %, moderate concentric LVH, RV normal in size and function -- Acute hypoxic respiratory failure Likely secondary to bilateral pleural effusion Respiratory BioFire negative for everything on 04/07/2025 BNP 406 --Bilateral pleural effusion Etiology is not clear Could be from HFpEF, from malignancy or from the chemotherapy that she is getting S/p right-sided thoracentesis 04/08/2025, 1250 mL removed, exudative as per lights criteria --> cytology positive for breast cancer In future if the patient's pleural fluid comes back in a short duration of time then Pleurx catheter could be sort of Pleural fluid: LDH 589, protein 4.4, pH 7.33 Serum: LDH 230, protein 6.3 --History of breast cancer Initial diagnosis was 2018, relapse in 2023 Was treated with doxorubicin back in 2019. Capecitabine 1650mg (3-500mg + 1-150mg tab) twice a day for 1 week followed by 1 week off, started on 02/06/25 Denosumab started 03/22/2024 Plan: In/out: -2 L since coming to the hospital Continuous diuresis to keep the patient negative balance of at least 1 L on a daily basis Will do a therapeutic and diagnostic thoracentesis of the left side, case discussed with IR Unfortunately patient was not able to tolerate BiPAP as she is claustrophobic Case discussed with Dr. Andrade, interventional radiology as well as RN at bedside I spent more than 50 minutes looking in the chart, images, discussing the plan of care with the patient, RN as well as primary team Please note the above document was generated using voice recognition software. It may contain grammatical, syntax or spelling errors.Any formal questions or concerns about the content, text or information contained within the body of this dictation should be directly addressed to the provider for clarification. Admission and Anticipated Discharge Date Admission Date: April 07, 2025 Subjective Patient seen and examined at bedside. No acute distress, no adverse events overnight She was saturating 87-88% on room air while she was lying on the bed. When I asked her to take deep breaths and her saturation did improve to 96%. She stated she is feeling much better after she had the thoracentesis on the right side done. Denied any nausea or vomiting Appetite is fair. Review of Systems 2 Review of Systems: All systems reviewed & are unremarkable except as noted in Subjective Physical Exam 2 Physical Exam: Constitutional: No acute distress HEENT: EOMI, PERRLA Respiratory system: Decreased air entry on the left side, no wheeze, no rhonchi, positive crackles bilaterally more on the right side CVS: S1-S2 positive, no murmurs or gallops, accentuated P2 Abdomen: Soft, nontender, nondistended, positive bowel sounds x4 Extremities: +2 pulses bilaterally radialis/ dorsalis pedis, no cyanosis, minimal pitting edema bilateral lower extremity, left greater than right Neuro: Awake alert oriented x3 Psych: Normal mood and affect G/U: Positive Lopez Skin: no rashes, warm and dry Lymphatic: no cervical or axillary lymphadenopathy Results & Data Results & Data Vital Signs (Past 12 Hours) Vital Signs Temp Pulse Pulse Resp BP Pulse Ox Pulse Ox 04/09/25 04:34 36.7 C 73 17 148/79 H 95 04/09/25 00:04 36.8 C 74 18 151/85 H 95 04/08/25 21:48 80 04/08/25 20:03 18 93 04/08/25 19:38 37.1 C 79 18 154/73 H 92 04/08/25 19:37 92 04/08/25 19:30 O2 Del Method O2 Del Method O2 Flow Rate 04/09/25 04:34 Room Air 04/09/25 00:04 Room Air 04/08/25 21:48 04/08/25 20:03 Room Air 04/08/25 19:38 Room Air 04/08/25 19:37 Room Air 04/08/25 19:30 Nasal Cannula 2 Laboratory Results 04/09/25 04:21 04/09/25 04:21 PG Care Time/CCT Total # of Minutes Spent Total Time Spent with Patient: Total time spent is greater than 50% in coordination of care (as documented) at patient's floor/unit and/or counseling patient: Coding Level of Care Code 99585 SUB INP/OBS CARE 350MIN Diagnoses Acute respiratory failure with hypoxia J96.01 Pleural effusion, bilateral J90 Acute heart failure with preserved ejection fraction (HFpEF) I50.31 Malignant neoplasm of upper-outer quadrant of left breast in female, estrogen receptor positive C50.412; Z17.0
--- NOTE | 2025-04-09 08:28 | Cardiology Progress Note ---
Date of Service April 09, 2025 Assessment & Plan (1) Acute dyspnea: (2) Malignant neoplasm of upper-outer quadrant of left breast in female, estrogen receptor positive: Plan Patient is a 69 yo female seen and examined in follow-up today. At time of exam, patient states she is feeling very well, much improved from yesterday. She states breathing has improved dramatically since removing 1250 mL fluid from right lung yesterday afternoon, now breathing comfortably on room air. Denies chest pain, SOB with rest or exertion, dizziness, lightheadedness, fever, chills, or any other issues. 1. Acute dyspnea -No anginal complaints. -Denies SOB at rest or with exertion. Comfortable on room air today, no longer requiring O2 via nasal cannula. -EKG 04/08/25: NSR, rate 73 bpm, QTc 473, Left atrial enlargement, LAD, nonspecific T wave abnormality, worse in anterolateral leads. -Thoracentesis, right lung 04/08/25: 1250 mL cloudy pleural fluid removed. Cytology pending. -Telemetry reviewed: NSR overnight, HR 70s; NSR today, HR 80s. -Continue with IV diuretics, Lasix 40mg IV BID -Continue oral potassium chloride supplementation. -Pulmonology remains on consult. Appreciate recommendations. 2. Left Breast cancer, Dx Oct 2019 -Managed by Dr. Christiansen, [facility]. -Initial Tx regimen in 2019 included Doxorubicin. -Current Tx: -Capecitabine 1650mg (3-500mg + 1-150mg tab) twice a day for 1 week followed by 1 week off, started on 02/06/25; -Xgeva every 4 weeks (started on 03/22/2024) -Monthly Vitamin B12 1,000 mcg, IM -Doppler 03/08/25 obtained due to LLE edema was negative. -Limited echo 04/08/25 shows severe mitral annular calcification. No pericardial effusion. Low normal LVEF 50-55%. Case discussed with Dr. Andrade. Further recommendations pending his evaluation and assessment I spent a total of 35 minutes on the date of service in preparation, delivery, and documentation of the care provided to this patient, excluding any time spent in the performance of separately billed services. Ceasar Cole, PA-C Department of Cardiology, [facility] This chart was completed in part utilizing Speech Voice Recognition Software. Grammatical errors, random word insertions, pronoun errors, and incomplete sentences are an occasional consequence of this system due to software limitations, ambient noise, and hardware issues. Any formal questions or concerns about the content, text, or information contained within the body of this dictation should be directly addressed to the provider for clarification. Admission and Anticipated Discharge Date Admission Date: April 07, 2025 Supervising Physician Co-Signing Physician Notes Attending attestation: Case reviewed with the advanced practitioner. I have personally performed a history and physical examination on the patient. I have reviewed the advanced practitioner's documentation on the date of service referenced in note, and I agree with, and take responsibility for the plan of care. Patient states that she feels much better status postthoracentesis on 04/08/2025. Cytology of the pleural fluid has come back consistent with metastatic adenocarcinoma and therefore the pleural effusion is felt to be a malignant pleural effusion. Continue diuretic therapy for now. Plan for outpatient oncology follow-up. I spent a total of 25 minutes coordinating, documenting, and providing care for this patient excluding time spent in the performance of separately billed services or time spent by another provider. Tirso Andrade DO Subjective Patient is a 69 yo female seen and examined in follow-up today. At time of exam, patient states she is feeling very well, much improved from yesterday. She states breathing has improved dramatically since removing 1250 mL fluid from right lung yesterday afternoon, now breathing comfortably on room air. Denies chest pain, SOB with rest or exertion, dizziness, lightheadedness, fever, chills, or any other issues. Labs, vitals, diagnostics, and documentation reviewed. Telemetry reviewed: NSR overnight, HR 70s; NSR today, HR 80s. Review of Systems Review of Systems: All systems reviewed & are unremarkable except as noted in HPI & below Physical Exam Constitutional: WD/WN, vitals as above Eyes: PERRL, conjunctivae normal, anicteric sclerae ENMT: external ear and nose normal, oropharynx normal Neck: trachea midline Respiratory: normal respiratory effort Auscultation: + diminished lung sounds (Slightly decreased on left base); no rales and no wheezes Cardiovascular: Rate/Rhythm: regular rate and regular rhythm Vessels: no JVD and no carotid bruit Extremities: no edema Musculoskeletal: Extremities: extremities normal to inspection Skin: no rashes, warm and dry Psychiatric: A+Ox3, euthymic affect Results & Data Vital Signs (Past 12 Hours) Vital Signs Temp Pulse Pulse Resp BP Pulse Ox O2 Del Method 04/09/25 07:45 77 16 94 Nasal Cannula 04/09/25 07:16 36.7 C 70 16 153/65 H 95 Room Air 04/09/25 04:34 36.7 C 73 17 148/79 H 95 Room Air 04/09/25 00:04 36.8 C 74 18 151/85 H 95 Room Air 04/08/25 21:48 80 O2 Flow Rate 04/09/25 07:45 2 04/09/25 07:16 04/09/25 04:34 04/09/25 00:04 04/08/25 21:48 Laboratory Results Cardiac Enzymes 04/08/25 Range/Units 09:34 Lactate Dehydrogenase 230 (86-244) U/L CBC 04/09/25 Range/Units 04:21 WBC 6.97 (4.8-10.8) K/ul RBC 3.09 L (4.20-5.40) M/uL Hgb 10.3 L (12.0-16.0) g/dl Hct 31.1 L (37.0-47.0) % Plt Count 148 (130-400) K/uL Comprehensive Metabolic Panel 04/08/25 04/09/25 Range/Units 09:34 04:21 Sodium 138 (136-145) mmol/L Potassium 3.9 (3.5-5.1) mmol/L Chloride 105 (98-107) mmol/L Carbon Dioxide 25 (21-32) mmol/L BUN 12 (6-23) mg/dl Creatinine 0.61 (0.6-1.2) mg/dl Glucose 132 H (70-99(Fasting)) mg/dl Calcium 7.5 L (8.6-10.3) mg/dl Total Protein 6.3 (6.0-8.3) gm/dl Albumin 3.8 (3.4-5.0) gm/dl Intake and Output 04/08/25 04/09/25 04/09/25 22:59 06:59 14:59 Intake Total 100 / 100 Output Total 800 / 1550 150 / 1550 Balance -800 / -1550 -150 / -1550 100 / 100 Intake: IV 100 / 100 Magnesium Sulfate / D5w 1 gm In 100 / 100 100 ml @ 50 mls/hr IV ONE ONE Rx#:[id number] Output: Urine Amount (Catheter) 800 / 950 150 / 950 Lopez/Indwelling 800 / 950 150 / 950 Other: Weight 94.393 kg Weight Measurement Method Built in [facility] Diagnostic Findings Limited echo 04/08/25: Left ventricle normal in size. Moderate concentric LV hypertrophy. LVEF 50-55%. LV systolic function is low normal. There is borderline global hypokinesis of the left ventricle. Severe mitral annular calcification. No pericardial effusion. EKG 04/08/25: NSR, rate 73 bpm, QTc 473, Left atrial enlargement, LAD, non specific T wave abnormality, worse in anterolateral leads Thoracentesis, right lung 04/08/25: 1250 mL cloudy pleural fluid removed. Cytology pending. CXR 04/08/25: No pneumothorax Medications Administered Current Inpatient Medications Acetaminophen (Acetaminophen 325 Mg Tab) 650 mg PO Q4H PRN PRN Reason: Pain or Fever Stop: 05/07/25 15:18 Last Admin: 04/08/25 04:56 Dose: 650 mg Albuterol (Albut/Ipratrop 3mg/0.5mg Neb 3 Ml Vial) 3 ml NEB BIDR KITA; Protocol Stop: 05/07/25 18:59 Last Admin: 04/09/25 07:42 Dose: 3 ml Albuterol (Albuterol Hfa 8 Gm Inhaler) 2 puffs INH QID PRN PRN Reason: Shortness Of Breath Or Wheezing Stop: 05/07/25 17:11 Aspirin (Aspirin 81 Mg Ectab) 81 mg PO QAM KITA Stop: 05/08/25 08:59 Last Admin: 04/09/25 08:43 Dose: 81 mg Brimonidine Tartrate (Brimonidine Tartrate 0.2% 5ml) 1 drops OPB HS KITA Stop: 05/07/25 20:59 Last Admin: 04/08/25 20:35 Dose: 1 drops Bupropion HCl (Bupropion Xl 150 Mg Tabcr) 150 mg PO HS KITA Stop: 05/07/25 20:59 Last Admin: 04/08/25 20:34 Dose: 150 mg Calcium/Vitamin D (Calcium 600mg + Vit D 400 Iu Tab) 2 tab PO DAILY [facility] Stop: 05/08/25 09:14 Last Admin: 04/09/25 08:43 Dose: 2 tab Calcium/Vitamin D (Calcium 600mg + Vit D 400 Iu Tab) 1 tab PO HS KITA Stop: 05/08/25 20:59 Last Admin: 04/08/25 20:34 Dose: 1 tab Carvedilol (Carvedilol 6.25 Mg Tab) 6.25 mg PO BID KITA Stop: 05/07/25 20:59 Last Admin: 04/09/25 08:44 Dose: 6.25 mg Dorzolamide HCl (Dorzolamide Hcl 2% Oph Soln 10 Ml Btl) 1 drops OPB QAM KITA Stop: 05/07/25 20:59 Last Admin: 04/09/25 08:44 Dose: 1 drops Duloxetine HCl (Duloxetine Hcl 60 Mg Cap) 60 mg PO HS KITA Stop: 05/07/25 20:59 Last Admin: 04/08/25 20:34 Dose: 60 mg Enoxaparin Sodium (Enoxaparin Inj 40 Mg/0.4 Ml Syr) 40 mg SQ Q24H KITA Stop: 05/08/25 17:59 Famotidine (Famotidine 20 Mg Tab) 20 mg PO QAM KITA Stop: 05/08/25 08:59 Last Admin: 04/09/25 08:42 Dose: 20 mg Fluticasone Propionate (Fluticasone Propionate Na Spr 16 Gm Btl) 1 sprays NA DAILY PRN PRN Reason: Congestion Stop: 05/07/25 17:11 Furosemide (Furosemide 40 Mg/4 Ml Vial) 40 mg IV [id number] KITA Stop: 05/08/25 13:59 Last Admin: 04/09/25 08:43 Dose: 40 mg Gabapentin (Gabapentin 100 Mg Cap) 100 mg PO QAM KITA Stop: 05/08/25 08:59 Last Admin: 04/09/25 08:44 Dose: 100 mg Gabapentin (Gabapentin 300 Mg Cap) 300 mg PO QPM KITA Stop: 05/07/25 20:59 Last Admin: 04/08/25 20:34 Dose: 300 mg Hydralazine HCl (Hydralazine Hcl 20 Mg/Ml Vial) 5 mg IV Q4H PRN PRN Reason: hypertension Stop: 05/07/25 15:24 Melatonin (Melatonin 3 Mg Tab) 3 mg PO HS PRN PRN Reason: Sleep Stop: 05/07/25 15:18 Last Admin: 04/07/25 21:21 Dose: 3 mg Montelukast Sodium (Montelukast Sodium 10 Mg Tablet) 10 mg PO QAM [facility] Stop: 05/08/25 08:59 Last Admin: 04/09/25 08:43 Dose: 10 mg Morphine Sulfate (Morphine Sulfate 4 Mg/Ml 1 Ml Carp\Vial) 4 mg IV Q4H PRN PRN Reason: Pain Stop: 04/22/25 19:27 Multivitamins/Minerals (Cerovite Adv Formula Tab) 1 tab PO QAM [facility] Stop: 05/08/25 08:59 Last Admin: 04/09/25 08:43 Dose: 1 tab Ondansetron HCl (Ondansetron Inj 2 Mg/Ml 2 Ml Vial) 4 mg IV Q6H PRN PRN Reason: Nausea Stop: 05/07/25 15:18 Last Admin: 04/08/25 19:50 Dose: 4 mg Ondansetron HCl (Ondansetron 8mg Od Tab) 8 mg PO Q6H PRN PRN Reason: Nausea And Vomiting Stop: 05/07/25 17:23 Last Admin: 04/08/25 09:03 Dose: 8 mg Oxycodone HCl (Oxycodone Hcl Ir 5 Mg Tab (Immediate Release)) 5 - 10 mg PO QID PRN PRN Reason: Pain Stop: 04/22/25 19:24 Pantoprazole Sodium (Pantoprazole 40 Mg Tab) 40 mg PO QAM [facility] Stop: 05/08/25 08:59 Last Admin: 04/09/25 08:43 Dose: 40 mg Polyethylene Glycol (Polyethylene (Miralax) 17 Gm Pack) 17 gm PO DAILY PRN PRN Reason: Constipation Stop: 05/07/25 15:18 Potassium Chloride (Potassium Chloride Crtab 20 Meq Tabcr) 20 meq PO ONE [facility] Stop: 05/08/25 16:59 Last Admin: 04/08/25 16:37 Dose: 20 meq Potassium Chloride (Potassium Chloride Crtab 20 Meq Tabcr) 20 meq PO QAM [facility] Stop: 05/09/25 08:59 Last Admin: 04/09/25 08:42 Dose: 20 meq Prochlorperazine (Prochlorperazine Maleate 10 Mg Tab) 10 mg PO Q6H PRN PRN Reason: Nausea And Vomiting Stop: 05/07/25 17:11 Last Admin: 04/08/25 04:58 Dose: 10 mg Timolol Maleate (Timolol Maleate 0.5% Op Soln 5 Ml Btl) 1 drops OPB HS [facility] Stop: 05/07/25 20:59 Last Admin: 04/08/25 20:35 Dose: 1 drops
[2025-04-09] MEDS: POTASSIUM CHLORIDE CRTAB 20 MEQ TABCR PO SCH (08:42)
[2025-04-09 09:10] LABS: Folate (Folic Acid),Ser orPlas 15.47 ng/ml (>5.38)
[2025-04-09 11:11] LABS: Basophils, Fluid 3 %; Lymphocytes, Fluid 47 %; Mono,Macrophage,Mesothelial 5 %; Neutrophils, Fluid 8 %; Other Cells Pleural Cells 37 %
--- NOTE | 2025-04-09 13:06 | Hospitalist Progress Note ---
Date of Service April 09, 2025 Assessment & Plan (1) Pleural effusion, bilateral: Plan 69F PMH breast ca w/mets to the bone (diagnosed February,; currently off chemo due to weakness, last dose March 26), asthma, JUDITH, MDD, htn, gerd, IBS-M who presents for worsening SOB, chest pain for about a month. Pt reports she was actually having better weak in terms of SOB and then started w/ acute worsening sob on the day of arrival. She also had midsternal chest pain, constant, exacerbated w/ breathing and deep palpation. Pt denied fever, sore throat. She is being managed for the following: Progressive dyspnea Chest pain: Likely secondary to bony metastasis. Trop flat trends in 30s. Pt has constant chest pain. Await Echo. ro ACS, cardio on board. Breast ca w/mets to the bone Hyperbilirubinemia, elevated alk phos: in the setting of bone mets per onc Admitting CXR: Cardiomegaly with pulmonary vascular congestion. Layering pleural effusions with bibasilar consolidation. The right pleural effusion is multiloculated. Bony sclerotic metastasis. CTA Chest: No evidence for pulmonary embolism. Moderate pleural effusions. Diffuse sclerotic lesions throughout the bones consistent with metastasis. BNP 406, RPP neg, WBC nl at presentation. s/p Rt thoracentesis: 1250 ml fluid taken out. exudative effusion per light's criteria, Cx no growth, cytopatho +ve for metastatic adenocarcinoma. SOB at mostly w/ exertion 2/2 increasing pleural effusion iso metastatic cancer. Pulm on board, now plan for left thoracentesis, being diuresed aggresively. Admitting physician d/w Dr Christiansen 04/07, no additional recs at this time, continue to hold chemo for now. IS, Bowel reg, Pain control. c/w lasix iv, monitor Is and Os. Macrocytic anemia: likely iso chemotherapy. Monitor. folate and b12 level and iron studies --> all wnl. Other chronic medical conditions: asthma, HTN, GERD, JUDITH --> c/w or resume home meds as able. DVT ppx: enoxaparin on hold for lt thora today. Admission and Anticipated Discharge Date Admission Date: April 07, 2025 Subjective Patient was seen and examined at bedside. Patient was lying in bed, on RA, NAD, resting comfortably. Pt's dtr at bedside who was also updated on plan of care. Patient denies any new complaints, denies sore throat or fever. reports improving breathing and she feels a lot better after right thoracentesis. Physical Exam Physical Exam: GENERAL: Alert and oriented x3. NAD, on RA. Appears ill/sick. HEENT: No pallor, no icterus. Pupils equal, round and reactive to light. Oral mucosa moist. NECK: No JVD, no neck masses. HEART: S1 and S2 heard. Regular rate and rhythm. + murmur, no gallop. RESPIRATORY SYSTEM: Normal AP diameter. No accessory muscle use. No wheezing, no crackles. decreased LLL breath sounds. RLL breath sounds has improved some. ABDOMEN: Soft, bowel sounds present, nontender, no distention. CENTRAL NERVOUS SYSTEM: No facial droop. Speech is clear. Obeys simple commands. Moves extremities. EXTREMITIES: No edema, no erythema seen. Results & Data Results & Data Vital Signs (Past 12 Hours) Vital Signs Temp Pulse Resp BP Pulse Ox O2 Del Method O2 Flow Rate 04/09/25 12:15 36.7 C 71 17 151/84 H 91 Room Air 04/09/25 07:45 77 16 94 Nasal Cannula 2 04/09/25 07:16 36.7 C 70 16 153/65 H 95 Room Air 04/09/25 04:34 36.7 C 73 17 148/79 H 95 Room Air
[2025-04-09] MEDS: oxyCODONE HCL IR 5 MG TAB (IMMEDIATE RELEASE) PO PRN (20:38)
[2025-04-10 06:11] LABS: Calcium 8.4 mg/dl (8.6-10.3); Magnesium 1.6 mg/dl (1.7-2.4); Potassium 4.2 mmol/L (3.5-5.1)
[2025-04-10 06:17] LABS: BUN Creatinine Ratio 23.5 (10-20); Creatinine Clr Calc Pharmacy 86.8 ml/min
[2025-04-10 07:25] LABS: Basophils # (auto) 0.02 K/uL (0.00-0.20); Basophils % (auto) 0.3 %; Eosinophils # (auto) 0.17 K/uL (0.00-0.50); Eosinophils % (auto) 2.6 %; Hemoglobin 10.4 g/dl (12.0-16.0); Immature Granulocytes # (auto) 0.04 K/uL (0.01-0.20); Immature Granulocytes % (auto) 0.6 %; Lymphocytes # (auto) 0.85 K/uL (1.20-3.40); Lymphocytes % (auto) 13.2 %; Mean Corpuscular Hemoglobin 33.2 pg (25.0-34.0); Mean Corpuscular Hgb Conc 33.5 g/dL (32.0-36.0); Monocytes # (auto) 0.58 K/uL (0.11-0.59); Neutrophils # (auto) 4.76 K/uL (1.40-6.50); Neutrophils % (auto) 74.3 %; Platelet Count 134 K/uL (130-400); RDW Coefficient of Variation 15.7 % (11.5-14.5); RDW Standard Deviation 56.1 fL (36.4-46.3); Red Blood Count 3.13 M/uL (4.20-5.40); White Blood Count 6.42 K/ul (4.8-10.8)
--- NOTE | 2025-04-10 08:05 | Pulmonology Progress Note ---
Date of Service April 10, 2025 Assessment & Plan (1) Acute respiratory failure with hypoxia: (2) Pleural effusion, bilateral: (3) Acute heart failure with preserved ejection fraction (HFpEF): (4) Malignant neoplasm of upper-outer quadrant of left breast in female, estrogen receptor positive: Plan CTA chest 04/07/2025 personally reviewed: Large right and moderate left-sided pleural effusion Minimal compressive atelectasis of the right lower lobe Linear atelectasis of the inferior lobe of the lingula No significant mediastinal lymphadenopathy 2D echo 04/08/2025: EF 50-55 %, moderate concentric LVH, RV normal in size and function -- Acute hypoxic respiratory failure Likely secondary to bilateral pleural effusion Respiratory BioFire negative for everything on 04/07/2025 BNP 406 --Bilateral pleural effusion Etiology is not clear Could be from HFpEF, from malignancy or from the chemotherapy that she is getting S/p right-sided thoracentesis 04/08/2025, 1250 mL removed, exudative as per lights criteria --> cytology positive for breast cancer In future if the patient's pleural fluid comes back in a short duration of time then Pleurx catheter could be thought of Pleural fluid: LDH 589, protein 4.4, pH 7.33 Serum: LDH 230, protein 6.3 --History of breast cancer Initial diagnosis was 2018, relapse in 2023 Was treated with doxorubicin back in 2019. Capecitabine 1650mg (3-500mg + 1-150mg tab) twice a day for 1 week followed by 1 week off, started on 02/06/25 Denosumab started 03/22/2024 Plan: In/out: -2.2 L since coming to the hospital Ultrasound of the chest did not show small pleural effusion on the left. No thoracentesis was performed yesterday. Continuous diuresis to keep the patient negative balance. Would recommend diuretics even on discharge at home Patient was emotional. Emotional support was given to the patient as well as the daughter who was in the room. Repeat chest x-ray in the morning Okay to discontinue Lopez catheter Patient will probably need oxygen nightly and on exertion Continue with incentive spirometry Recommend out of the bed to chair Unfortunately patient was not able to tolerate BiPAP as she is claustrophobic Please note the above document was generated using voice recognition software. It may contain grammatical, syntax or spelling errors.Any formal questions or concerns about the content, text or information contained within the body of this dictation should be directly addressed to the provider for clarification. Admission and Anticipated Discharge Date Admission Date: April 07, 2025 Subjective Patient seen and examined at bedside. No acute distress, no adverse events overnight She was lying on the bed when I entered the room. Saturation was 87% on room air On making a talking having her take deep breaths it went up to 93-94% Overall she says she is feeling better since she came to the hospital Has been diuresing well Denies any nausea or vomiting No headache, no blurry vision Appetite is poor. No bowel movement Review of Systems 2 Review of Systems: All systems reviewed & are unremarkable except as noted in Subjective Physical Exam 2 Physical Exam: Constitutional: No acute distress HEENT: EOMI, PERRLA Respiratory system: Decreased air entry bilaterally, no wheeze, no rhonchi, positive crackles bilaterally lower lobes CVS: S1-S2 positive, no murmurs or gallops, accentuated P2 Abdomen: Soft, nontender, nondistended, positive bowel sounds x4 Extremities: +2 pulses bilaterally radialis/ dorsalis pedis, no cyanosis, minimal pitting edema bilateral lower extremity, left greater than right Neuro: Awake alert oriented x3 Psych: Normal mood and affect G/U: Positive Lopez Skin: no rashes, warm and dry Lymphatic: no cervical or axillary lymphadenopathy Results & Data Results & Data Vital Signs (Past 12 Hours) Vital Signs Temp Pulse Pulse Resp BP Pulse Ox O2 Del Method 04/10/25 07:00 36.2 C L 72 16 149/81 H 92 Room Air 04/10/25 06:57 73 16 97 Nasal Cannula 04/10/25 03:09 36.7 C 78 16 156/85 H 97 Nasal Cannula 04/09/25 23:38 77 04/09/25 23:19 36.7 C 79 16 159/89 H 96 Nasal Cannula O2 Flow Rate 04/10/25 07:00 04/10/25 06:57 2 04/10/25 03:09 2 04/09/25 23:38 04/09/25 23:19 2 Laboratory Results 04/10/25 07:06 04/10/25 05:40 PG Care Time/CCT Total # of Minutes Spent Total Time Spent with Patient: Total time spent is greater than 50% in coordination of care (as documented) at patient's floor/unit and/or counseling patient: Coding Level of Care Code 11716 SUB INP/OBS CARE 235MIN Diagnoses Acute respiratory failure with hypoxia J96.01 Pleural effusion, bilateral J90 Acute heart failure with preserved ejection fraction (HFpEF) I50.31 Malignant neoplasm of upper-outer quadrant of left breast in female, estrogen receptor positive C50.412; Z17.0
[2025-04-10] MEDS: MAGNESIUM SULFATE / D5W 1 GM/100 ML BAG IV SCH (09:41)
[2025-04-10] MEDS: MAGNESIUM OXIDE 400 MG TAB PO ONE (10:05)
--- NOTE | 2025-04-10 13:17 | Cardiology Progress Note ---
Date of Service April 10, 2025 Assessment & Plan (1) Acute dyspnea: (2) Malignant neoplasm of upper-outer quadrant of left breast in female, estrogen receptor positive: Plan Assessment: Patient is a 69 yo female seen and examined in follow-up today. At time of exam, patient states she is feeling very well, much improved from yesterday. She states breathing has improved dramatically since removing 1250 mL fluid from right lung yesterday afternoon, now breathing comfortably on room air. Denies chest pain, SOB with rest or exertion, dizziness, lightheadedness, fever, chills, or any other issues. Plan: 1. Acute dyspnea -No anginal complaints. -Denies SOB at rest or with exertion. Breathing comfortably on room air.. -Thoracentesis, right lung 04/08/25: 1250 mL cloudy pleural fluid removed. Cytology: metastatic adenocarcinoma. Morphology is nonspecific but compatible with the history of metastatic breast carcinoma. -Telemetry reviewed: NSR, HR 80s. -Continue with IV diuretics, Lasix 40mg IV BID -Continue oral potassium chloride supplementation as necessary. -Pulmonology remains on consult. Appreciate recommendations. 2. Left Breast cancer, Dx Oct 2019 -Managed by Dr. Christiansen, [facility]. -Initial Tx regimen in 2019 included Doxorubicin. -Current Tx: -Capecitabine 1650mg (3-500mg + 1-150mg tab) twice a day for 1 week followed by 1 week off, started on 02/06/25; -Xgeva every 4 weeks (started on 03/22/2024) -Monthly Vitamin B12 1,000 mcg, IM -Doppler 03/08/25 obtained due to LLE edema was negative. -Limited echo 04/08/25 shows severe mitral annular calcification. No pericardial effusion. Low normal LVEF 50-55%. -Thoracentesis, right lung 04/08/25: 1250 mL cloudy pleural fluid removed. Cytology: metastatic adenocarcinoma. Morphology is nonspecific but compatible with the history of metastatic breast carcinoma. Patient to discuss plan regarding cytology results with [facility] tomorrow morning. Case discussed with Dr. Andrade. Further recommendations pending his evaluation and assessment I spent a total of 35 minutes on the date of service in preparation, delivery, and documentation of the care provided to this patient, excluding any time spent in the performance of separately billed services. Ann Huffman [facility] [place], [facility] Department of Cardiology, [facility] This chart was completed in part utilizing Speech Voice Recognition Software. Grammatical errors, random word insertions, pronoun errors, and incomplete sentences are an occasional consequence of this system due to software limitations, ambient noise, and hardware issues. Any formal questions or concerns about the content, text, or information contained within the body of this dictation should be directly addressed to the provider for clarification. Admission and Anticipated Discharge Date Admission Date: April 07, 2025 Supervising Physician Co-Signing Physician Notes Attending attestation: Case reviewed with the advanced practitioner. I have personally performed a history and physical examination on the patient. I have reviewed the advanced practitioner's documentation on the date of service referenced in note, and I agree with, and take responsibility for the plan of care. Patient states that she feels much better status post thoracentesis on 04/08/2025. Cytology of the pleural fluid has come back consistent with metastatic adenocarcinoma and therefore the pleural effusion is felt to be a malignant pleural effusion. Continue diuretic IV therapy for now. Will consider Removing Lopez catheter on 04/11/2025. Considered resuming losartan 25 mg for BP control. Outpatient notes however reveal that this was stoppled last month due to concerns of low BP. Will cautiously add spironolactone. Plan for outpatient oncology follow-up. Pulmonary input noted and appreciated. Future considerations include indwelling pleural catheter if the pleural effusion reaccumulate's rapidly. I spent a total of 25 minutes coordinating, documenting, and providing care for this patient excluding time spent in the performance of separately billed servi yovany or time spent by another provider. Tirso Andrade, Subjective Patient seen and examined today for follow-up. Sitting comfortably in a chair, surrounded by her and daughter. Offers no acute cardiac complaints. Denies shortness of breath, chest pain, palpitations, dizziness, or any other issues. Labs, diagnostics, vitals, telemetry, and documentation reviewed. Telemetry shows NSR, HR 80s. No acute events overnight. Review of Systems Review of Systems: All systems reviewed & are unremarkable except as noted in HPI & below Physical Exam Constitutional: WD/WN, vitals as above Eyes: PERRL, conjunctivae normal, anicteric sclerae ENMT: external ear and nose normal, oropharynx normal Neck: trachea midline Respiratory: normal respiratory effort and + abnormal respiratory pattern (SOB, requiring O2 via nasal cannula and elevation of head of bed) Auscultation: + diminished lung sounds (Slightly decreased on left base); no rales and no wheezes Cardiovascular: Rate/Rhythm: regular rate and regular rhythm Heart Sounds: + murmur Vessels: no JVD and no carotid bruit Extremities: no edema Musculoskeletal: Extremities: extremities normal to inspection Skin: no rashes, warm and dry Psychiatric: A+Ox3, euthymic affect Results & Data Vital Signs (Past 12 Hours) Vital Signs Temp Pulse Pulse Resp BP Pulse Ox O2 Del Method 04/10/25 11:00 73 16 137/85 92 Room Air 04/10/25 08:00 79 04/10/25 08:00 Room Air, Nasal Cannula 04/10/25 07:00 36.2 C L 72 16 149/81 H 92 Room Air 04/10/25 06:57 73 16 97 Nasal Cannula 04/10/25 03:09 36.7 C 78 16 156/85 H 97 Nasal Cannula O2 Flow Rate 04/10/25 11:00 04/10/25 08:00 04/10/25 08:00 2 04/10/25 07:00 04/10/25 06:57 2 04/10/25 03:09 2 Laboratory Results CBC 04/10/25 04/10/25 Range/Units 05:40 07:06 WBC Cancelled 6.42 RBC Cancelled 3.13 L Hgb Cancelled 10.4 L Hct Cancelled 31.0 L Plt Count Cancelled 134 Neut # (Auto) 4.76 (1.40-6.50) K/uL Lymph # (Auto) 0.85 L (1.20-3.40) K/uL [place] # (Auto) 0.58 (0.11-0.59) K/uL Eos # (Auto) 0.17 (0.00-0.50) K/uL Baso # (Auto) 0.02 (0.00-0.20) K/uL Comprehensive Metabolic Panel 04/10/25 Range/Units 05:40 Sodium 138 (136-145) mmol/L Potassium 4.2 (3.5-5.1) mmol/L Chloride 102 (98-107) mmol/L Carbon Dioxide 27 (21-32) mmol/L BUN 16 (6-23) mg/dl Creatinine 0.68 (0.6-1.2) mg/dl Glucose 138 H (70-99(Fasting)) mg/dl Calcium 8.4 L (8.6-10.3) mg/dl Intake and Output 04/09/25 04/10/25 04/10/25 22:59 06:59 14:59 Output Total 150 / 900 Balance -150 / -250 Output: Urine Amount (Catheter) 150 / 150 Lopez/Indwelling 150 / 150 Other: Weight 93.9 kg Diagnostic Findings -Thoracentesis, right lung 04/08/25: 1250 mL cloudy pleural fluid removed. Cytology: metastatic adenocarcinoma. Morphology is nonspecific but compatible with the history of metastatic breast carcinoma. Medications Administered Current Inpatient Medications Acetaminophen (Acetaminophen 325 Mg Tab) 650 mg PO Q4H PRN PRN Reason: Pain or Fever Stop: 05/07/25 15:18 Last Admin: 04/08/25 04:56 Dose: 650 mg Albuterol (Albut/Ipratrop 3mg/0.5mg Neb 3 Ml Vial) 3 ml NEB BIDR [facility]; Protocol Stop: 05/07/25 18:59 Last Admin: 04/10/25 06:57 Dose: 3 ml Albuterol (Albuterol Hfa 8 Gm Inhaler) 2 puffs INH QID PRN PRN Reason: Shortness Of Breath Or Wheezing Stop: 05/07/25 17:11 Aspirin (Aspirin 81 Mg Ectab) [facility] Stop: 05/08/25 08:59 Last Admin: 04/10/25 08:02 Dose: 81 mg Brimonidine Tartrate (Brimonidine Tartrate 0.2% 5ml) [address] [facility] Stop: 05/07/25 20:59 Last Admin: 04/09/25 20:38 Dose: 1 drops Bupropion HCl (Bupropion Xl 150 Mg Tabcr) 150 [address] [facility] Stop: 05/07/25 20:59 Last Admin: 04/09/25 20:40 Dose: 150 mg Calcium/Vitamin D (Calcium 600mg + Vit D 400 Iu Tab) 2 tab PO DAILY [facility] Stop: 05/08/25 09:14 Last Admin: 04/10/25 08:02 Dose: 2 tab Calcium/Vitamin D (Calcium 600mg + Vit D 400 Iu Tab) 1 tab PO [facility] Stop: 05/08/25 20:59 Last Admin: 04/09/25 20:40 Dose: 1 tab Carvedilol (Carvedilol 6.25 Mg Tab) 6.25 mg PO BID [facility] Stop: 05/07/25 20:59 Last Admin: 04/10/25 08:02 Dose: 6.25 mg Dorzolamide HCl (Dorzolamide Hcl 2% Oph Soln 10 Ml Btl) 1 drops OPB QAM [facility] Stop: 05/07/25 20:59 Last Admin: 04/10/25 08:03 Dose: 1 drops Duloxetine HCl (Duloxetine Hcl 60 Mg Cap) 60 mg PO HS [facility] Stop: 05/07/25 20:59 Last Admin: 04/09/25 20:39 Dose: 60 mg Enoxaparin Sodium (Enoxaparin Inj 40 Mg/0.4 Ml Syr) 40 mg SQ Q24H [facility] Stop: 05/08/25 17:59 Famotidine (Famotidine 20 Mg Tab) 20 mg PO QAM [facility] Stop: 05/08/25 08:59 Last Admin: 04/10/25 08:05 Dose: 20 mg Fluticasone Propionate (Fluticasone Propionate Na Spr 16 Gm Btl) 1 sprays NA DAILY PRN PRN Reason: Congestion Stop: 05/07/25 17:11 Furosemide (Furosemide 40 Mg/4 Ml Vial) 40 mg IV [id number] [facility] Stop: 05/08/25 13:59 Last Admin: 04/10/25 07:57 Dose: 40 mg Gabapentin (Gabapentin 100 Mg Cap) 100 mg PO QAM [facility] Stop: 05/08/25 08:59 Last Admin: 04/10/25 08:02 Dose: 100 mg Gabapentin (Gabapentin 300 Mg Cap) 300 mg PO QPM [facility] Stop: 05/07/25 20:59 Last Admin: 04/09/25 20:40 Dose: 300 mg Hydralazine HCl (Hydralazine Hcl 20 Mg/Ml Vial) 5 mg IV Q4H PRN PRN Reason: hypertension Stop: 05/07/25 15:24 Melatonin (Melatonin 3 Mg Tab) 3 mg PO HS PRN PRN Reason: Sleep Stop: 05/07/25 15:18 Last Admin: 04/07/25 21:21 Dose: 3 mg Montelukast Sodium (Montelukast Sodium 10 Mg Tablet) 10 mg PO QAM [facility] Stop: 05/08/25 08:59 Last Admin: 04/10/25 08:03 Dose: 10 mg Morphine Sulfate (Morphine Sulfate 4 Mg/Ml 1 Ml Carp\Vial) 4 mg IV Q4H PRN PRN Reason: Pain Stop: 04/22/25 19:27 Multivitamins/Minerals (Cerovite Adv Formula Tab) 1 tab PO QAM [facility] Stop: 05/08/25 08:59 Last Admin: 04/10/25 08:03 Dose: 1 tab Ondansetron HCl (Ondansetron Inj 2 Mg/Ml 2 Ml Vial) 4 mg IV Q6H PRN PRN Reason: Nausea Stop: 05/07/25 15:18 Last Admin: 04/08/25 19:50 Dose: 4 mg Ondansetron HCl (Ondansetron 8mg Od Tab) 8 mg PO Q6H PRN PRN Reason: Nausea And Vomiting Stop: 05/07/25 17:23 Last Admin: 04/08/25 09:03 Dose: 8 mg Oxycodone HCl (Oxycodone Hcl Ir 5 Mg Tab (Immediate Release)) 5 - 10 mg PO QID PRN PRN Reason: Pain Stop: 04/22/25 19:24 Last Admin: 04/09/25 20:38 Dose: 10 mg Pantoprazole Sodium (Pantoprazole 40 Mg Tab) 40 mg PO QAM [facility] Stop: 05/08/25 08:59 Last Admin: 04/10/25 08:02 Dose: 40 mg Polyethylene Glycol (Polyethylene (Miralax) 17 Gm Pack) 17 gm PO DAILY PRN PRN Reason: Constipation Stop: 05/07/25 15:18 Potassium Chloride (Potassium Chloride Crtab 20 Meq Tabcr) 20 meq PO ONE [facility] Stop: 05/08/25 16:59 Last Admin: 04/09/25 18:11 Dose: 20 meq Potassium Chloride (Potassium Chloride Crtab 20 Meq Tabcr) 20 meq PO QAM [facility] Stop: 05/09/25 08:59 Last Admin: 04/10/25 08:05 Dose: 20 meq Prochlorperazine (Prochlorperazine Maleate 10 Mg Tab) 10 mg PO Q6H PRN PRN Reason: Nausea And Vomiting Stop: 05/07/25 17:11 Last Admin: 04/08/25 04:58 Dose: 10 mg Timolol Maleate (Timolol Maleate 0.5% Op Soln 5 Ml Btl) 1 drops OPB HS [facility] Stop: 05/07/25 20:59 Last Admin: 04/09/25 20:38 Dose: 1 drops
--- NOTE | 2025-04-10 13:26 | Ultrasound Report ---
Limited left chest ultrasound INDICATION: Thoracentesis request FINDINGS: Ultrasound imaging of the left chest demonstrates a small left pleural effusion, estimated at approximately 300 mL. No thoracentesis was performed. The referring physician was notified. IMPRESSION: Small left pleural effusion as detailed above. Performed, dictated, and signed by Kelechi Acevedo PA-C; to be co-signed by Dr. Jose Martin Garber. Electronically signed by: Jose Martin Garber M.D. 04/10/2025 1:57 PM
[2025-04-10] MEDS: ENOXAPARIN INJ 40 MG/0.4 ML SYR SQ SCH (17:15)
[2025-04-10] MEDS: DOCUSATE SODIUM/SENNA 50/8.6MG TAB PO PRN (17:15)
--- NOTE | 2025-04-10 17:16 | Hospitalist Progress Note ---
Date of Service April 10, 2025 Assessment & Plan (1) Pleural effusion, bilateral: Plan 69F PMH breast ca w/mets to the bone (diagnosed February,; currently off chemo due to weakness, last dose March 26), asthma, JUDITH, MDD, htn, gerd, IBS-M who presents for worsening SOB, chest pain for about a month. Pt reports she was actually having better weak in terms of SOB and then started w/ acute worsening sob on the day of arrival. She also had midsternal chest pain, constant, exacerbated w/ breathing and deep palpation. Pt denied fever, sore throat. She is being managed for the following: Progressive dyspnea Chest pain: Likely secondary to bony metastasis. Trop flat trends in 30s. Pt has constant chest pain. Await Echo. ro ACS, cardio on board. Breast ca w/mets to the bone Hyperbilirubinemia, elevated alk phos: in the setting of bone mets per onc Malignant Pleural Effusions -Admitting CXR: Cardiomegaly with pulmonary vascular congestion. Layering pleural effusions with bibasilar consolidation. The right pleural effusion is multiloculated. Bony sclerotic metastasis. -CTA Chest: No evidence for pulmonary embolism. Moderate pleural effusions. Diffuse sclerotic lesions throughout the bones consistent with metastasis. -BNP 406, RPP neg, WBC nl at presentation. -s/p Rt thoracentesis: 1250 ml fluid taken out. exudative effusion per light's criteria, Cx no growth, cytopatho +ve for metastatic adenocarcinoma. Plan: -SOB at mostly w/ exertion 2/2 increasing pleural effusion iso metastatic cancer. -Pulm on board, now plan for left thoracentesis, being diuresed aggresively. -Admitting physician d/w Dr Christiansen 04/07 -IS, Bowel reg, Pain control. c/w lasix iv, monitor Is and Os. -will discuss further with Dr. Christiansen when he is avaliable -will discuss GOC with patient tomorrow pending discussion with oncology and pulmonology Macrocytic anemia: likely iso chemotherapy. Monitor. folate and b12 level and iron studies --> all wnl. Other chronic medical conditions: asthma, HTN, GERD, JUDITH --> c/w or resume home meds as able. I spent a total of 50 minutes in direct patient care, including [id number] time with the patient and/or family, reviewing medical records, ordering and reviewing diagnostic tests, and coordinating care with other healthcare provide rs. This time includes: history taking, physical examination, medical decision making, counseling, ECG interpretation, imaging interpretation, lab interpretation, orders, and education, excluding time spent in the performance of separately billed services. I spent a total of 45 minutes providing advanced care planning to the patient and/or family, including [id number] time discussing the patient's health status, prognosis, and treatment options. This time includes specific activities such as: discussing advance directives, goals of care, prognostication, and end-of-life planning. Admission and Anticipated Discharge Date Admission Date: April 07, 2025 Subjective Patient seen and examined at bedside. Patient doing ok today, discussed goals and values, see note below. Advanced Care Plannin minutes spent discussing goals and values with patient, , daughter. We began by introducing myself and role on care team. Family introduced themselves. Discussed patient's concerning condition, and chloride including biopsy-proven malignant pleural effusions. Discussed concern that fluid is going to reaccumulate. Discussed that our hope is that she stabilizes and even improves her functional status, concern is that her functional status is declining and only for effusions can carry out poor prognosis. this provider was asked about prognosis, numbness this is estimated on the scale of months, perhaps weeks depending on progression of pleural effusions. Discussed that breast cancer is a slow-moving malignancy and that her functional status is borderline but likely candidate for further therapies if desired. Patient states her priority is quality of life at this time. She states she is open to doing treatment but only if there is not significant side effects and her quality of life does not suffer. Discussed that I will discuss this case further with her oncologist and pulmonology, and we will discuss further plans once this information is gathered. Review of Systems Review of Systems: CONSTITUTIONAL: fatigue, weakness EYES: Patient denies any visual symptoms. EARS, NOSE, AND THROAT: No difficulties with hearing. No symptoms of rhinitis or sore throat. CARDIOVASCULAR: Patient denies chest pains, palpitations, orthopnea and paroxysmal nocturnal dyspnea. RESPIRATORY: No dyspnea on exertion, no wheezing or cough. GI: No nausea, vomiting, diarrhea, constipation, abdominal pain, hematochezia or melena. : No urinary hesitancy or dribbling. No nocturia or urinary frequency. No abnormal urethral discharge. MUSCULOSKELETAL: No myalgias or arthralgias. NEUROLOGIC: No chronic headaches, no seizures. Patient denies numbness, tingling or weakness. PSYCHIATRIC: Patient denies problems with mood disturbance. No problems with anxiety. ENDOCRINE: No excessive urination or excessive thirst. DERMATOLOGIC: Patient denies any rashes or skin changes. Physical Exam Physical Exam: Gen: A&O 3 NAD, sarcopenia notedd, HEENT: NCAT, EOMI, not icteric. External ears normal. No rhinorrhea. Moist mucous membranes. Neck: Supple, full range of motion, no observable masses, No meningeal sign. Lungs: No Respiratory distress. CV: RRR, no edema. Abdomen: Soft, nondistended, No rebound tenderness. MSK: No joint swelling, no redness. Skin: No rashes, petechiae, lesions. Normal color per patient. Neuro: Normal Gait, Grossly intact. Psych: Appropriate for situation. Results & Data Results & Data Vital Signs (Past 12 Hours) Vital Signs Temp Pulse Pulse Resp BP Pulse Ox O2 Del Method 04/10/25 16:00 36.4 C L 77 16 152/81 H 91 Room Air 04/10/25 14:51 81 04/10/25 11:00 73 16 137/85 92 Room Air 04/10/25 08:00 79 04/10/25 08:00 Room Air, Nasal Cannula 04/10/25 07:00 36.2 C L 72 16 149/81 H 92 Room Air 04/10/25 06:57 73 16 97 Nasal Cannula O2 Flow Rate 04/10/25 16:00 04/10/25 14:51 04/10/25 11:00 04/10/25 08:00 04/10/25 08:00 2 04/10/25 07:00 04/10/25 06:57 2 Laboratory Results -personally reviewed, no leukocytosis noted, Mg of 1.6 and replenished Diagnostic Findings Chest Ultrasound 04/10/25 00:00 Limited left chest ultrasound INDICATION: Thoracentesis request FINDINGS: Ultrasound imaging of the left chest demonstrates a small left pleural effusion, estimated at approximately 300 mL. No thoracentesis was performed. The referring physician was notified. IMPRESSION: Small left pleural effusion as detailed above. Performed, dictated, and signed by Kelechi Acevedo PA-C; to be co-signed by Dr. Jose Martin Garber. -personally reviewed, left pleural effusion noted Medications Administered Acetaminophen (Acetaminophen 325 Mg Tab) 650 mg PO Q4H PRN PRN Reason: Pain or Fever Stop: 05/07/25 15:18 Last Admin: 04/08/25 04:56 Dose: 650 mg Documented By: Admin: 04/07/25 19:29 Dose: 650 mg Documented By: MERCEDEST Albuterol (Albut/Ipratrop 3mg/0.5mg Neb 3 Ml Vial) 3 ml NEB BIDR [facility]; Protocol Stop: 05/07/25 18:59 Last Admin: 04/10/25 06:57 Dose: 3 ml Documented By: Admin: 04/09/25 19:51 Dose: 3 ml Documented By: Admin: 04/09/25 07:42 Dose: 3 ml Documented By: Admin: 04/08/25 20:03 Dose: 3 ml Documented By: Admin: 04/08/25 07:25 Dose: 3 ml Documented By: Admin: 04/07/25 20:54 Dose: 3 ml Documented By: HELIO Aspirin (Aspirin 81 Mg Ectab) [address] [facility] Stop: 05/08/25 08:59 Last Admin: 04/10/25 08:02 Dose: 81 mg Documented By: Admin: 04/09/25 08:43 Dose: 81 mg Documented By: Admin: 04/08/25 08:18 Dose: 81 mg Documented By: PK Brimonidine Tartrate (Brimonidine Tartrate 0.2% 5ml) 1 drops OPB [facility] Stop: 05/07/25 20:59 Last Admin: 04/09/25 20:38 Dose: 1 drops Documented By: Admin: 04/08/25 20:35 Dose: 1 drops Documented By: Admin: 04/07/25 20:45 Dose: 1 drops Documented By: MERCEDEST Bupropion HCl (Bupropion Xl 150 Mg Tabcr) 150 mg PO [facility] Stop: 05/07/25 20:59 Last Admin: 04/09/25 20:40 Dose: 150 mg Documented By: Admin: 04/08/25 20:34 Dose: 150 mg Documented By: Admin: 04/07/25 20:39 Dose: 150 mg Documented By: HNT Calcium/Vitamin D (Calcium 600mg + Vit D 400 Iu Tab) 2 tab PO DAILY [facility] Stop: 05/08/25 09:14 Last Admin: 04/10/25 08:02 Dose: 2 tab Documented By: Admin: 04/09/25 08:43 Dose: 2 tab Documented By: Admin: 04/08/25 10:06 Dose: 2 tab Documented By: PK Calcium/Vitamin D (Calcium 600mg + Vit D 400 Iu Tab) 1 tab PO HS [facility] Stop: 05/08/25 20:59 Last Admin: 04/09/25 20:40 Dose: 1 tab Documented By: Admin: 04/08/25 20:34 Dose: 1 tab Documented By: CHRISTIANA Carvedilol (Carvedilol 6.25 Mg Tab) 6.25 mg PO BID [facility] Stop: 05/07/25 20:59 Last Admin: 04/10/25 08:02 Dose: 6.25 mg Documented By: Admin: 04/09/25 20:39 Dose: 6.25 mg Documented By: Admin: 04/09/25 08:44 Dose: 6.25 mg Documented By: Admin: 04/08/25 20:34 Dose: 6.25 mg Documented By: Admin: 04/08/25 08:17 Dose: 6.25 mg Documented By: Admin: 04/07/25 20:39 Dose: 6.25 mg Documented By: MERCEDEST Dorzolamide HCl (Dorzolamide Hcl 2% Oph Soln 10 Ml Btl) 1 drops [facility] Stop: 05/07/25 20:59 Last Admin: 04/10/25 08:03 Dose: 1 drops Documented By: Admin: 04/09/25 08:44 Dose: 1 drops Documented By: Admin: 04/08/25 08:19 Dose: 1 drops Documented By: PK Duloxetine HCl (Duloxetine Hcl 60 Mg Cap) 60 mg PO [facility] Stop: 05/07/25 20:59 Last Admin: 04/09/25 20:39 Dose: 60 mg Documented By: Admin: 04/08/25 20:34 Dose: 60 mg Documented By: Admin: 04/07/25 20:39 Dose: 60 mg Documented By: MERCEDEST Famotidine (Famotidine 20 Mg Tab) 20 mg PO QAM [facility] Stop: 05/08/25 08:59 Last Admin: 04/10/25 08:05 Dose: 20 mg Documented By: Admin: 04/09/25 08:42 Dose: 20 mg Documented By: Admin: 04/08/25 08:25 Dose: 20 mg Documented By: PK Furosemide (Furosemide 40 Mg/4 Ml Vial) 40 mg IV [id number] [facility] Stop: 05/08/25 13:59 Last Admin: 04/10/25 14:00 Dose: 40 mg Documented By: Admin: 04/10/25 07:57 Dose: 40 mg Documented By: Admin: 04/09/25 14:16 Dose: 40 mg Documented By: Admin: 04/09/25 08:43 Dose: 40 mg Documented By: Admin: 04/08/25 14:18 Dose: 40 mg Documented By: PK Gabapentin (Gabapentin 100 Mg Cap) 100 mg PO QAM [facility] Stop: 05/08/25 08:59 Last Admin: 04/10/25 08:02 Dose: 100 mg Documented By: Admin: 04/09/25 08:44 Dose: 100 mg Documented By: Admin: 04/08/25 08:18 Dose: 100 mg Documented By: PK Gabapentin (Gabapentin 300 Mg Cap) 300 mg PO QPM [facility] Stop: 05/07/25 20:59 Last Admin: 04/09/25 20:40 Dose: 300 mg Documented By: Admin: 04/08/25 20:34 Dose: 300 mg Documented By: Admin: 04/07/25 20:39 Dose: 300 mg Documented By: HNT Melatonin (Melatonin 3 Mg Tab) 3 mg PO HS PRN PRN Reason: Sleep Stop: 05/07/25 15:18 Last Admin: 04/07/25 21:21 Dose: 3 mg Documented By: HNT Montelukast Sodium (Montelukast Sodium 10 Mg Tablet) 10 mg PO QAM [facility] Stop: 05/08/25 08:59 Last Admin: 04/10/25 08:03 Dose: 10 mg Documented By: Admin: 04/09/25 08:43 Dose: 10 mg Documented By: Admin: 04/08/25 08:18 Dose: 10 mg Documented By: PK Multivitamins/Minerals (Cerovite Adv Formula Tab) 1 tab PO QAM [facility] Stop: 05/08/25 08:59 Last Admin: 04/10/25 08:03 Dose: 1 tab Documented By: Admin: 04/09/25 08:43 Dose: 1 tab Documented By: Admin: 04/08/25 08:18 Dose: 1 tab Documented By: DUYEN Ondansetron HCl (Ondansetron Inj 2 Mg/Ml 2 Ml Vial) 4 mg IV Q6H PRN PRN Reason: Nausea Stop: 05/07/25 15:18 Last Admin: 04/08/25 19:50 Dose: 4 mg Documented By: Admin: 04/07/25 16:26 Dose: 4 mg Documented By: ANTONIO Ondansetron HCl (Ondansetron 8mg Od Tab) 8 mg PO Q6H PRN PRN Reason: Nausea And Vomiting Stop: 05/07/25 17:23 Last Admin: 04/08/25 09:03 Dose: 8 mg Documented By: DUYEN Oxycodone HCl (Oxycodone Hcl Ir 5 Mg Tab (Immediate Release)) 5 - 10 mg PO QID PRN PRN Reason: Pain Stop: 04/22/25 19:24 Last Admin: 04/09/25 20:38 Dose: 10 mg Documented By: TRISTEN Pantoprazole Sodium (Pantoprazole 40 Mg Tab) 40 mg PO QAM [facility] Stop: 05/08/25 08:59 Last Admin: 04/10/25 08:02 Dose: 40 mg Documented By: Admin: 04/09/25 08:43 Dose: 40 mg Documented By: Admin: 04/08/25 08:18 Dose: 40 mg Documented By: DUYEN Potassium Chloride (Potassium Chloride Crtab 20 Meq Tabcr) 20 meq PO ONE [facility] Stop: 05/08/25 16:59 Last Admin: 04/09/25 18:11 Dose: 20 meq Documented By: Admin: 04/08/25 16:37 Dose: 20 meq Documented By: DUYEN Potassium Chloride (Potassium Chloride Crtab 20 Meq Tabcr) 20 meq PO QAM [facility] Stop: 05/09/25 08:59 Last Admin: 04/10/25 08:05 Dose: 20 meq Documented By: Admin: 04/09/25 08:42 Dose: 20 meq Documented By: DUYEN Prochlorperazine (Prochlorperazine Maleate 10 Mg Tab) 10 mg PO Q6H PRN PRN Reason: Nausea And Vomiting Stop: 05/07/25 17:11 Last Admin: 04/08/25 04:58 Dose: 10 mg Documented By: JOANNE Timolol Maleate (Timolol Maleate 0.5% Op Soln 5 Ml Btl) 1 drops OPB HS [facility] Stop: 05/07/25 20:59 Last Admin: 04/09/25 20:38 Dose: 1 drops Documented By: Admin: 04/08/25 20:35 Dose: 1 drops Documented By: Admin: 04/07/25 20:45 Dose: 1 drops Documented By: JOANNE
[2025-04-11 06:25] LABS: Calcium 7.3 mg/dl (8.6-10.3); Potassium 4.4 mmol/L (3.5-5.1)
[2025-04-11 06:31] LABS: BUN Creatinine Ratio 25.7 (10-20); Creatinine Clr Calc Pharmacy 84.2 ml/min
--- NOTE | 2025-04-11 07:48 | XRay Report ---
EXAM: XR chest 1V portable CLINICAL HISTORY: F/u. TECHNIQUE: X-ray image of the chest obtained in AP portable projection. COMPARISON: Prior X-ray dated 04/08/2025 for comparison. FINDINGS: Pulmonary Parenchyma: Unchanged prominent bilateral parahilar markings. Mild interval progression of faint opacity in bilateral basal lung zones, more on the right. Unchanged blunting of bilateral costophrenic angles likely pleural effusion. Heart and Mediastinum: Cardiomegaly. No mediastinal widening or masses. No hilar or mediastinal lymphadenopathy. Bony Thorax: Degenerative changes in bilateral shoulder joints. Spondylotic changes in thoracic spine. Bony thorax appears intact without fractures or deformities. Soft Tissues: Soft tissues overlying the chest wall are unremarkable. IMPRESSION: 1. Cardiomegaly. 2. Unchanged prominent bilateral parahilar markings. 3. Mild interval progression of haziness in bilateral basal lung zones, more on the right likely pulmonary edema vs infection. 4. Unchanged blunting of bilateral costophrenic angles likely pleural effusion. Electronically signed by Jared Pittman 04-11-2025 07:48 AM
--- NOTE | 2025-04-11 08:54 | Cardiology Progress Note ---
Date of Service April 11, 2025 Assessment & Plan (1) Acute dyspnea: (2) Malignant neoplasm of upper-outer quadrant of left breast in female, estrogen receptor positive: Plan Assessment: Patient is a 69 yo female seen and examined in follow-up today. At time of exam, patient is sitting comfortably in a chair with daughter and at her side. States she is feeling well with no acute complaints. Denies chest pain, palpitations, SOB, dizziness, lightheadedness, fever, chills, or any other issues. Plan: 1. Acute dyspnea,Malignant pleural effusion -No anginal complaints. -Denies SOB. Breathing comfortably on room air.. -Thoracentesis, right lung 04/08/25: 1250 mL cloudy pleural fluid removed. Cytology: metastatic adenocarcinoma. Morphology is nonspecific but compatible with the history of metastatic breast carcinoma. -Telemetry reviewed: NSR, HR 70s. No acute events overnight. -Continue with IV diuretics, Lasix 40mg IV BID -Continue oral potassium chloride supplementation as necessary. -Pulmonology remains on consult. Appreciate recommendations. 2. Left Breast cancer, Dx Oct 2019 -Managed by Dr. Christiansen, [facility]. -Initial Tx regimen in 2019 included Doxorubicin. -Current Tx: -Capecitabine 1650mg (3-500mg + 1-150mg tab) twice a day for 1 week followed by 1 week off, started on 02/06/25; -Xgeva every 4 weeks (started on 03/22/2024) -Monthly Vitamin B12 1,000 mcg, IM -Doppler 03/08/25 obtained due to LLE edema was negative. -Limited echo 04/08/25 shows severe mitral annular calcification. No pericardial effusion. Low normal LVEF 50-55%. -Thoracentesis, right lung 04/08/25: 1250 mL cloudy pleural fluid removed. Cytology: metastatic adenocarcinoma. Case discussed with Dr. Andrade. Further recommendations pending his evaluation and assessment I spent a total of 35 minutes on the date of service in preparation, delivery, and documentation of the care provided to this patient, excluding any time spent in the performance of separately billed services. Ceasar Cole, PAMarimarC Department of Cardiology, [facility] This chart was completed in part utilizing Speech Voice Recognition Software. Grammatical errors, random word insertions, pronoun errors, and incomplete sentences are an occasional consequence of this system due to software limitations, ambient noise, and hardware issues. Any formal questions or concerns about the content, text, or information contained within the body of this dictation should be directly addressed to the provider for clarification. Admission and Anticipated Discharge Date Admission Date: April 07, 2025 Supervising Physician Co-Signing Physician Notes Attending attestation: Case reviewed with the advanced practitioner. I have personally performed a history and physical examination on the patient. I have reviewed the advanced practitioner's documentation on the date of service referenced in note, and I agree with, and take responsibility for the plan of care. No acute complaints Exam: Pulmonary: Mildly decreased breath sounds at the bases Impression Fluid retention, malignant right pleural effusion Recurrent metastatic breast carcinoma -Chest x-ray a.m. of 04/11/2025 reveals trace residual bilateral pleural effusions, mild interstitial edema. - Patient/daughter tell me that she has elected to not pursue further breast cancer treatment. - Lopez catheter has been removed - Continue furosemide 40 mg IV twice daily with next dose at 1400 today. -Will plan to transition to torsemide 40 mg daily in 24 -48 hours depending upon progress. -Blood pressure trending high today. Continue carvedilol. She had previously been on losartan as an outpatient but had been discontinued due to concerns of low blood pressure/orthostatic hypotension within the last few weeks. If blood pressure remains high, consider resuming losartan at lower dose, 25 mg daily. -Will need outpatient chest x-ray within 2 to 3 weeks. If rapid accumulation takes place, future considerations include palliative pleural catheter placement. -Cardiology to sign off. Call with questions or concerns. I spent a total of 20 minutes coordinating, documenting, and providing care for this patient excluding time spent in the performance of separately billed services or time spent by another provider. DO Deysi Rachel Patient is a 69 yo female seen and examined in follow-up today. At time of exam, patient is sitting comfortably in a chair with daughter and at her side. States she is feeling well with no acute complaints. She is however anxiously awaiting a meeting with [facility] at 10 am to discuss updated plan from Oncology regarding her breast cancer treatment. Denies chest pain, palpitations, SOB, dizziness, lightheadedness, fever, chills, or any other issues. Labs, vitals, diagnostics, and documentation reviewed. Telemetry reviewed: NSR, HR 70s. No acute events overnight; NSR, HR 70s. Review of Systems Review of Systems: All systems reviewed & are unremarkable except as noted in HPI & below Physical Exam Constitutional: WD/WN, vitals as above Eyes: PERRL, conjunctivae normal, anicteric sclerae ENMT: external ear and nose normal, oropharynx normal Neck: trachea midline Respiratory: normal respiratory effort and + abnormal respiratory pattern (SOB, requiring O2 via nasal cannula and elevation of head of bed) Auscultation: + diminished lung sounds (Slightly decreased bilaterally); no rales and no wheezes Cardiovascular: Rate/Rhythm: regular rate and regular rhythm Heart Sounds: + murmur Vessels: no JVD and no carotid bruit Extremities: no edema Skin: no rashes, warm and dry Psychiatric: Orientation: alert and oriented x 3 [facility]. Results & Data Vital Signs (Past 12 Hours) Vital Signs Temp Pulse Pulse Resp BP Pulse Ox O2 Del Method 04/11/25 08:51 36.5 C 82 17 165/90 H 90 Room Air 04/11/25 07:27 75 04/11/25 07:03 78 16 92 Nasal Cannula 04/11/25 06:36 72 156/90 H 04/11/25 03:41 36.3 C L 76 15 163/92 H 96 Room Air 04/10/25 22:48 82 04/10/25 22:38 36.5 C 80 16 168/91 H 96 Room Air Laboratory Results Comprehensive Metabolic Panel 04/11/25 Range/Units 05:56 Sodium 136 (136-145) mmol/L Potassium 4.4 (3.5-5.1) mmol/L Chloride 101 (98-107) mmol/L Carbon Dioxide 26 (21-32) mmol/L BUN 18 (6-23) mg/dl Creatinine 0.70 (0.6-1.2) mg/dl Glucose 132 H (70-99(Fasting)) mg/dl Calcium 7.3 L (8.6-10.3) mg/dl Intake and Output 04/10/25 04/11/25 04/11/25 22:59 06:59 14:59 Output Total 525 / 925 100 / 925 450 / 450 Balance -525 / -925 -100 / -925 -450 / -450 Output: Urine 450 / 450 Urine Amount (Catheter) 525 / 925 100 / 925 Lopez/Indwelling 525 / 925 100 / 925 Other: Weight 93.8 kg Weight Measurement Method Built in [facility] Diagnostic Findings CXR 04/11/25: 1. Cardiomegaly. 2. Unchanged prominent bilateral parahilar markings. 3. Mild interval progression of haziness in bilateral basal lung zones, more on the right likely pulmonary edema vs infection. 4. Unchanged blunting of bilateral costophrenic angles likely pleural effusion. Medications Administered Current Inpatient Medications Acetaminophen (Acetaminophen 325 Mg Tab) 650 mg PO Q4H PRN PRN Reason: Pain or Fever Stop: 05/07/25 15:18 Last Admin: 04/08/25 04:56 Dose: 650 mg Albuterol (Albut/Ipratrop 3mg/0.5mg Neb 3 Ml Vial) 3 ml NEB BIDR [facility]; Protocol Stop: 05/07/25 18:59 Last Admin: 04/11/25 07:02 Dose: 3 ml Albuterol (Albuterol Hfa 8 Gm Inhaler) 2 puffs INH QID PRN PRN Reason: Shortness Of Breath Or Wheezing Stop: 05/07/25 17:11 Aspirin (Aspirin 81 Mg Ectab) 81 mg PO QAM [facility] Stop: 05/08/25 08:59 Last Admin: 04/11/25 09:52 Dose: 81 mg Brimonidine Tartrate (Brimonidine Tartrate 0.2% 5ml) 1 drops OPB [facility] Stop: 05/07/25 20:59 Last Admin: 04/10/25 20:25 Dose: 1 drops Bupropion HCl (Bupropion Xl 150 Mg Tabcr) 150 mg PO HS [facility] Stop: 05/07/25 20:59 Last Admin: 04/10/25 20:24 Dose: 150 mg Calcium/Vitamin D (Calcium 600mg + Vit D 400 Iu Tab) 2 tab PO DAILY [facility] Stop: 05/08/25 09:14 Last Admin: 04/11/25 09:53 Dose: 2 tab Carvedilol (Carvedilol 6.25 Mg Tab) 6.25 mg PO BID [facility] Stop: 05/07/25 20:59 Last Admin: 04/11/25 09:53 Dose: 6.25 mg Dorzolamide HCl (Dorzolamide Hcl 2% Oph Soln 10 Ml Btl) 1 drops OPB QAM [facility] Stop: 05/07/25 20:59 Last Admin: 04/11/25 10:00 Dose: 1 drops Duloxetine HCl (Duloxetine Hcl 60 Mg Cap) 60 mg PO HS [facility] Stop: 05/07/25 20:59 Last Admin: 04/10/25 20:24 Dose: 60 mg Enoxaparin Sodium (Enoxaparin Inj 40 Mg/0.4 Ml Syr) 40 mg SQ Q24H [facility] Stop: 05/08/25 17:59 Last Admin: 04/10/25 17:15 Dose: 40 mg Famotidine (Famotidine 20 Mg Tab) 20 mg PO QAM [facility] Stop: 05/08/25 08:59 Last Admin: 04/11/25 09:59 Dose: 20 mg Fluticasone Propionate (Fluticasone Propionate Na Spr 16 Gm Btl) 1 sprays NA DAILY PRN PRN Reason: Congestion Stop: 05/07/25 17:11 Furosemide (Furosemide 40 Mg/4 Ml Vial) 40 mg IV [id number] [facility] Stop: 05/08/25 13:59 Last Admin: 04/11/25 06:37 Dose: 40 mg Gabapentin (Gabapentin 100 Mg Cap) 100 mg PO QAM [facility] Stop: 05/08/25 08:59 Last Admin: 04/11/25 09:55 Dose: 100 mg Gabapentin (Gabapentin 300 Mg Cap) 300 mg PO QPM [facility] Stop: 05/07/25 20:59 Last Admin: 04/10/25 20:24 Dose: 300 mg Melatonin (Melatonin 3 Mg Tab) 3 mg PO HS PRN PRN Reason: Sleep Stop: 05/07/25 15:18 Last Admin: 04/07/25 21:21 Dose: 3 mg Montelukast Sodium (Montelukast Sodium 10 Mg Tablet) 10 mg PO QAM [facility] Stop: 05/08/25 08:59 Last Admin: 04/11/25 09:56 Dose: 10 mg Morphine Sulfate (Morphine Sulfate 4 Mg/Ml 1 Ml Carp\Vial) 4 mg IV Q4H PRN PRN Reason: Pain Stop: 04/22/25 19:27 Multivitamins/Minerals (Cerovite Adv Formula Tab) 1 tab PO QAM [facility] Stop: 05/08/25 08:59 Last Admin: 04/11/25 09:54 Dose: 1 tab Ondansetron HCl (Ondansetron Inj 2 Mg/Ml 2 Ml Vial) 4 mg IV Q6H PRN PRN Reason: Nausea Stop: 05/07/25 15:18 Last Admin: 04/08/25 19:50 Dose: 4 mg Oxycodone HCl (Oxycodone Hcl Ir 5 Mg Tab (Immediate Release)) 5 - 10 mg PO QID PRN PRN Reason: Pain Stop: 04/22/25 19:24 Last Admin: 04/10/25 19:33 Dose: 10 mg Pantoprazole Sodium (Pantoprazole 40 Mg Tab) 40 mg PO QAM [facility] Stop: 05/08/25 08:59 Last Admin: 04/11/25 09:54 Dose: 40 mg Polyethylene Glycol (Polyethylene (Miralax) 17 Gm Pack) 17 gm PO DAILY PRN PRN Reason: Constipation Stop: 05/07/25 15:18 Potassium Chloride (Potassium Chloride Crtab 20 Meq Tabcr) 20 meq PO QAM [facility] Stop: 05/09/25 08:59 Last Admin: 04/11/25 09:59 Dose: 20 meq Senna/Docusate Sodium (Docusate Sodium/Senna 50/8.6mg Tab) 1 tab PO BID PRN PRN Reason: Constipation Stop: 05/10/25 20:59 Last Admin: 04/10/25 17:15 Dose: 1 tab Spironolactone (Spironolactone 12.5 Mg Tab) 12.5 mg PO DAILY [facility] Stop: 05/11/25 08:59 Last Admin: 04/11/25 09:55 Dose: 12.5 mg Timolol Maleate (Timolol Maleate 0.5% Op Soln 5 Ml Btl) 1 drops OPB HS [facility] Stop: 05/07/25 20:59 Last Admin: 04/10/25 20:25 Dose: 1 drops
[2025-04-11] MEDS ORDERED: LOSARTAN POTASSIUM 25 MG TAB PO SCH (09:00)
[2025-04-11] MEDS: SPIRONOLACTONE 12.5 MG TAB PO SCH (09:55)
--- NOTE | 2025-04-11 11:13 | Pulmonology Progress Note ---
Date of Service April 11, 2025 Assessment & Plan (1) Acute respiratory failure with hypoxia: (2) Pleural effusion, bilateral: (3) Acute heart failure with preserved ejection fraction (HFpEF): (4) Malignant neoplasm of upper-outer quadrant of left breast in female, estrogen receptor positive: Plan CTA chest 04/07/2025 personally reviewed: Large right and moderate left-sided pleural effusion Minimal compressive atelectasis of the right lower lobe Linear atelectasis of the inferior lobe of the lingula No significant mediastinal lymphadenopathy 2D echo 04/08/2025: EF 50-55 %, moderate concentric LVH, RV normal in size and function -- Acute hypoxic respiratory failure Likely secondary to bilateral pleural effusion Respiratory BioFire negative for everything on 04/07/2025 BNP 406 --Bilateral pleural effusion Etiology is not clear Could be from HFpEF, from malignancy or from the chemotherapy that she is getting S/p right-sided thoracentesis 04/08/2025, 1250 mL removed, exudative as per lights criteria --> cytology positive for breast cancer Chest x-ray 04/11/2025 showed some persistent blunting of the costophrenic angle but improved from CXR on 04/08/2025. In future if the patient's pleural fluid comes back in a short duration of time then Pleurx catheter could be thought of. Pleural fluid: LDH 589, protein 4.4, pH 7.33 Serum: LDH 230, protein 6.3 --History of breast cancer Initial diagnosis was 2018, relapse in 2023 Was treated with doxorubicin back in 2019. Capecitabine 1650mg (3-500mg + 1-150mg tab) twice a day for 1 week followed by 1 week off, started on 02/06/25 Denosumab started 03/22/2024 Admission and Anticipated Discharge Date Admission Date: April 07, 2025 Supervising Physician Co-Signing Physician Notes I saw and evaluated the patient with PAULINO Garsia, and agree with findings and plan as documented in the note. Patient seen and examined at bedside. Patient's as well as daughter were in the room at the time of examination No acute distress, no adverse events overnight She was saturating 96% on room air while sitting on the chair She stated she is feeling better. Diuresing well. No chest pain, no chest tightness Appetite is still poor. No difficulty swallowing. No nausea or vomiting Constitutional: No acute distress HEENT: EOMI, PERRLA Respiratory system: Decreased air entry bilaterally, no wheeze, no rhonchi, positive crackles bilaterally lower lobes CVS: S1-S2 positive, no murmurs or gallops, accentuated P2 Abdomen: Soft, nontender, nondistended, positive bowel sounds x4 Extremities: +2 pulses bilaterally radialis/ dorsalis pedis, no cyanosis, minimal pitting edema bilateral lower extremity, left greater than right Neuro: Awake alert oriented x3 Psych: Normal mood and affect G/U: Positive Lopez Plan: In/out: -3.5 L since coming to the hospital Ultrasound of the chest did not show small pleural effusion on the left. No thoracentesis on left indicated.. Continuous diuresis to keep the patient negative balance. Would recommend diuretics even on discharge at home Patient will probably need oxygen nightly and on exertion Continue with incentive spirometry Unfortunately patient was not able to tolerate BiPAP as she is claustrophobic Case was discussed with primary team in the room No further recommendation from pulmonary perspective, will sign off Please call directly with any questions Please note the above document was generated using voice recognition software. It may contain grammatical, syntax or spelling errors.Any formal questions or concerns about the content, text or information contained within the body of this dictation should be directly addressed to the provider for clarification. Subjective "It's a lot to process." " I would like to go home." Patient clinically improved this am. Patient sitting at the side of the bed, comfortable, nonlabored breathing. SpO2 93%-95% on room air at rest. Patient will require home oxygen at least while sleeping and with exertion. Chest x-ray this am showed some persistent blunting of the costophrenic angle but improved from CXR on 04/08/2025. Discussed need for continued diuretics and incentive spirometry even after discharge. Patient asked if fluid will come back there is a high likelihood it will but the course can be unpredictable. Patient instructed to call if she feels short of breath for possible evaluation and thoracentesis. Review of Systems 2 Review of Systems: All systems reviewed & are unremarkable except as noted in Subjective Physical Exam 2 Physical Exam: Constitutional: No acute distress HEENT: EOMI, PERRLA Respiratory system: Decreased air entry bilaterally, no wheeze, no rhonchi, positive crackles bilaterally lower lobes CVS: S1-S2 positive, no murmurs or gallops, accentuated P2 Abdomen: Soft, nontender, nondistended, positive bowel sounds x4 Extremities: +2 pulses bilaterally radialis/ dorsalis pedis, no cyanosis, minimal pitting edema bilateral lower extremity, left greater than right Neuro: Awake alert oriented x3 Psych: Normal mood and affect G/U: Voiding Skin: no rashes, warm and dry Lymphatic: no cervical or axillary lymphadenopathy Results & Data Results & Data Vital Signs (Past 12 Hours) Vital Signs Temp Pulse Pulse Resp BP Pulse Ox O2 Del Method 04/11/25 08:51 36.5 C 82 17 165/90 H 90 Room Air 04/11/25 07:27 75 04/11/25 07:03 78 16 92 Nasal Cannula 04/11/25 06:36 72 156/90 H 04/11/25 03:41 36.3 C L 76 15 163/92 H 96 Room Air Laboratory Results 04/10/25 07:06 04/11/25 05:56 Abnormal Lab Results 04/11/25 05:56 Sodium 136 Potassium 4.4 Chloride 101 Carbon Dioxide 26 Anion Gap 9 BUN 18 Creatinine 0.70 Est Cr Clr Drug Dosing 84.2 eGFR 93.56 BUN/Creatinine Ratio 25.7 H Glucose 132 H Calcium 7.3 L Diagnostic Findings Chest Ultrasound 04/10/25 00:00 Limited left chest ultrasound INDICATION: Thoracentesis request FINDINGS: Ultrasound imaging of the left chest demonstrates a small left pleural effusion, estimated at approximately 300 mL. No thoracentesis was performed. The referring physician was notified. IMPRESSION: Small left pleural effusion as detailed above. Performed, dictated, and signed by Kelechi Acevedo PA-C; to be co-signed by Dr. Jose Martin Garber. Electronically signed by: Jose Martin Garber M.D. 04/10/2025 1:57 PM Chest X-Ray 04/11/25 07:00 EXAM: XR chest 1V portable CLINICAL HISTORY: F/u. TECHNIQUE: X-ray image of the chest obtained in AP portable projection. COMPARISON: Prior X-ray dated 04/08/2025 for comparison. FINDINGS: Pulmonary Parenchyma: Unchanged prominent bilateral parahilar markings. Mild interval progression of faint opacity in bilateral basal lung zones, more on the right. Unchanged blunting of bilateral costophrenic angles likely pleural effusion. Heart and Mediastinum: Cardiomegaly. No mediastinal widening or masses. No hilar or mediastinal lymphadenopathy. Bony Thorax: Degenerative changes in bilateral shoulder joints. Spondylotic changes in thoracic spine. Bony thorax appears intact without fractures or deformities. Soft Tissues: Soft tissues overlying the chest wall are unremarkable. IMPRESSION: 1. Cardiomegaly. 2. Unchanged prominent bilateral parahilar markings. 3. Mild interval progression of haziness in bilateral basal lung zones, more on the right likely pulmonary edema vs infection. 4. Unchanged blunting of bilateral costophrenic angles likely pleural effusion. Electronically signed by Jared Pittman 04-11-2025 07:48 AM PG Care Time/CCT Total # of Minutes Spent Total Time Spent with Patient: Total time spent is greater than 50% in coordination of care (as documented) at patient's floor/unit and/or counseling patient: Coding Level of Care Code 95545 SUB INP/OBS CARE 2/35MIN Diagnoses Acute respiratory failure with hypoxia J96.01 Pleural effusion, bilateral J90 Acute heart failure with preserved ejection fraction (HFpEF) I50.31 Malignant neoplasm of upper-outer quadrant of left breast in female, estrogen receptor positive C50.412; Z17.0
--- NOTE | 2025-04-11 19:26 | Hospitalist Progress Note ---
Date of Service April 11, 2025 Assessment & Plan (1) Pleural effusion, bilateral: Plan 69F PMH breast ca w/mets to the bone (diagnosed February,; currently off chemo due to weakness, last dose March 26), asthma, JUDITH, MDD, htn, gerd, IBS-M who presents for worsening SOB, chest pain for about a month. Pt reports she was actually having better weak in terms of SOB and then started w/ acute worsening sob on the day of arrival. She also had midsternal chest pain, constant, exacerbated w/ breathing and deep palpation. Pt denied fever, sore throat. She is being managed for the following: Progressive dyspnea Chest pain: Likely secondary to bony metastasis. Trop flat trends in 30s. Pt has constant chest pain. Await Echo. ro ACS, cardio on board. Breast ca w/mets to the bone Hyperbilirubinemia, elevated alk phos: in the setting of bone mets per onc Malignant Pleural Effusions -Admitting CXR: Cardiomegaly with pulmonary vascular congestion. Layering pleural effusions with bibasilar consolidation. The right pleural effusion is multiloculated. Bony sclerotic metastasis. -CTA Chest: No evidence for pulmonary embolism. Moderate pleural effusions. Diffuse sclerotic lesions throughout the bones consistent with metastasis. -BNP 406, RPP neg, WBC nl at presentation. -s/p Rt thoracentesis: 1250 ml fluid taken out. exudative effusion per light's criteria, Cx no growth, cytopatho +ve for metastatic adenocarcinoma. -per pulmonology, no need for pleurx catheter placement at this time -prognosis on scale of months given malignant pleural effusions, ECOG 3, poor nutritional status, has been through many lines of treatment Plan: -patient has chosen to focus on comfort, sign on with hospice -[facility] hospice referral placed -discharge tomorrow with hospice services Macrocytic anemia: likely iso chemotherapy. Monitor. folate and b12 level and iron studies --> all wnl. Other chronic medical conditions: asthma, HTN, GERD, JUDITH --> c/w or resume home meds as able. I spent a total of 50 minutes in direct patient care, including kmlk-cw-bval time with the patient and/or family, reviewing medical records, ordering and reviewing diagnostic tests, and coordinating care with other healthcare providers. This time includes: history taking, physical examination, medical decision making, counseling, ECG interpretation, imaging interpretation, lab interpretation, orders, and education, excluding time spent in the performance of separately billed services. I spent a total of 30 minutes providing advanced care planning to the patient and/or family, including [id number] time discussing the patient's health status, prognosis, and treatment options. This time includes specific activities such as: discussing advance directives, goals of care, prognostication, and end-of-life planning. Admission and Anticipated Discharge Date Admission Date: April 07, 2025 Subjective Patient seen and examined at bedside. [facility] discussion with patient, see below. [facility]annin minutes spent discussing goals and values with patient, daughter, and . Meeting started by discussing how she is doing today, she feels well today. Discussed patient's current clinical situation including having malignant pleural effusion secondary to stage IV breast cancer. Discussed patient's went through numerous rounds of therapies, and over the past few months has not tolerated therapies well. Patient's declining functional status and nutritional status. 3 rounds were offered to patient in regard to goals of care. 1 route was to pursue all medical therapies at this time including chemotherapies or immunotherapies if offered and return to the hospital if things get worse. Next route forward is to follow-up outpatient with oncologist for next steps and consideration if she would like to continue treatment. Third option is to focus on quality of life and comfort, treating symptoms rather than underlying condition. Discussed that prognosis for malignant pleural effusions is on the scale of months. Patient states that quality life is most important thing to her. She states she does not want any further treatment with the focus on comfort at this time. Discussed hospice at length. Patient would like a referral to [facility] hospice. Review of Systems Review of Systems: CONSTITUTIONAL: fatigue, weakness EYES: Patient denies any visual symptoms. EARS, NOSE, AND THROAT: No difficulties with hearing. No symptoms of rhinitis or sore throat. CARDIOVASCULAR: Patient denies chest pains, palpitations, orthopnea and paroxysmal nocturnal dyspnea. RESPIRATORY: No dyspnea on exertion, no wheezing or cough. GI: No nausea, vomiting, diarrhea, constipation, abdominal pain, hematochezia or melena. : No urinary hesitancy or dribbling. No nocturia or urinary frequency. No abnormal urethral discharge. MUSCULOSKELETAL: No myalgias or arthralgias. NEUROLOGIC: No chronic headaches, no seizures. Patient denies numbness, tingling or weakness. PSYCHIATRIC: Patient denies problems with mood disturbance. No problems with anxiety. ENDOCRINE: No excessive urination or excessive thirst. DERMATOLOGIC: Patient denies any rashes or skin changes. Physical Exam Physical Exam: Gen: A&O 3 NAD, sarcopenia noted HEENT: NCAT, EOMI, not icteric. External ears normal. No rhinorrhea. Moist mucous membranes. Neck: Supple, full range of motion, no observable masses, No meningeal sign. Lungs: No Respiratory distress. CV: RRR, no edema. Abdomen: Soft, nondistended, No rebound tenderness. MSK: No joint swelling, no redness. Skin: No rashes, petechiae, lesions. Normal color per patient. Neuro: Normal Gait, Grossly intact. Psych: Appropriate for situation. Results & Data Results & Data Vital Signs (Past 12 Hours) Vital Signs Temp Pulse Pulse Resp BP Pulse Ox O2 Del Method 04/11/25 15:05 36.8 C 79 17 167/78 H 90 Room Air 04/11/25 13:57 84 04/11/25 11:45 36.4 C L 92 H 17 165/81 H 92 Room Air 04/11/25 08:51 36.5 C 82 17 165/90 H 90 Room Air 04/11/25 07:45 Room Air 04/11/25 07:27 75 Laboratory Results -personally reviewed, stable creatinine at this time Medications Administered Acetaminophen (Acetaminophen 325 Mg Tab) 650 mg PO Q4H PRN PRN Reason: Pain or Fever Stop: 05/07/25 15:18 Last Admin: 04/08/25 04:56 Dose: 650 mg Documented By: Admin: 04/07/25 19:29 Dose: 650 mg Documented By: HNT Albuterol (Albut/Ipratrop 3mg/0.5mg Neb 3 Ml Vial) 3 ml NEB BIDR KITA; Protocol Stop: 05/07/25 18:59 Last Admin: 04/11/25 19:22 Dose: 3 ml Documented By: Admin: 04/11/25 07:02 Dose: 3 ml Documented By: Admin: 04/10/25 20:05 Dose: 3 ml Documented By: Admin: 04/10/25 06:57 Dose: 3 ml Documented By: Admin: 04/09/25 19:51 Dose: 3 ml Documented By: Admin: 04/09/25 07:42 Dose: 3 ml Documented By: ONEYDA(2) Admin: 04/08/25 20:03 Dose: 3 ml Documented By: Admin: 04/08/25 07:25 Dose: 3 ml Documented By: Admin: 04/07/25 20:54 Dose: 3 ml Documented By: HELIO Aspirin (Aspirin 81 Mg Ectab) 81 mg PO QAM KITA Stop: 05/08/25 08:59 Last Admin: 04/11/25 09:52 Dose: 81 mg Documented By: Admin: 04/10/25 08:02 Dose: 81 mg Documented By: Admin: 04/09/25 08:43 Dose: 81 mg Documented By: Admin: 04/08/25 08:18 Dose: 81 mg Documented By: PK Brimonidine Tartrate (Brimonidine Tartrate 0.2% 5ml) 1 drops OPB [facility] Stop: 05/07/25 20:59 Last Admin: 04/10/25 20:25 Dose: 1 drops Documented By: Admin: 04/09/25 20:38 Dose: 1 drops Documented By: Admin: 04/08/25 20:35 Dose: 1 drops Documented By: Admin: 04/07/25 20:45 Dose: 1 drops Documented By: MERCEDEST Bupropion HCl (Bupropion Xl 150 Mg Tabcr) 150 mg PO [facility] Stop: 05/07/25 20:59 Last Admin: 04/10/25 20:24 Dose: 150 mg Documented By: Admin: 04/09/25 20:40 Dose: 150 mg Documented By: Admin: 04/08/25 20:34 Dose: 150 mg Documented By: Admin: 04/07/25 20:39 Dose: 150 mg Documented By: MERCEDEST Calcium/Vitamin D (Calcium 600mg + Vit D 400 Iu Tab) 2 tab PO DAILY KITA Stop: 05/08/25 09:14 Last Admin: 04/11/25 09:53 Dose: 2 tab Documented By: Admin: 04/10/25 08:02 Dose: 2 tab Documented By: Admin: 04/09/25 08:43 Dose: 2 tab Documented By: Admin: 04/08/25 10:06 Dose: 2 tab Documented By: PK Carvedilol (Carvedilol 6.25 Mg Tab) 6.25 mg PO BID KITA Stop: 05/07/25 20:59 Last Admin: 04/11/25 09:53 Dose: 6.25 mg Documented By: Admin: 04/10/25 20:24 Dose: 6.25 mg Documented By: Admin: 04/10/25 08:02 Dose: 6.25 mg Documented By: Admin: 04/09/25 20:39 Dose: 6.25 mg Documented By: Admin: 04/09/25 08:44 Dose: 6.25 mg Documented By: Admin: 04/08/25 20:34 Dose: 6.25 mg Documented By: Admin: 04/08/25 08:17 Dose: 6.25 mg Documented By: Admin: 04/07/25 20:39 Dose: 6.25 mg Documented By: HNT Dorzolamide HCl (Dorzolamide Hcl 2% Oph Soln 10 Ml Btl) 1 drops OPB QAM KITA Stop: 05/07/25 20:59 Last Admin: 04/11/25 10:00 Dose: 1 drops Documented By: Admin: 04/10/25 08:03 Dose: 1 drops Documented By: Admin: 04/09/25 08:44 Dose: 1 drops Documented By: Admin: 04/08/25 08:19 Dose: 1 drops Documented By: PK Duloxetine HCl (Duloxetine Hcl 60 Mg Cap) 60 mg PO HS KITA Stop: 05/07/25 20:59 Last Admin: 04/10/25 20:24 Dose: 60 mg Documented By: Admin: 04/09/25 20:39 Dose: 60 mg Documented By: Admin: 04/08/25 20:34 Dose: 60 mg Documented By: Admin: 04/07/25 20:39 Dose: 60 mg Documented By: HNT Enoxaparin Sodium (Enoxaparin Inj 40 Mg/0.4 Ml Syr) 40 mg SQ Q24H KITA Stop: 05/08/25 17:59 Last Admin: 04/11/25 17:58 Dose: 40 mg Documented By: Admin: 04/10/25 17:15 Dose: 40 mg Documented By: NMK Famotidine (Famotidine 20 Mg Tab) 20 mg PO QAM KITA Stop: 05/08/25 08:59 Last Admin: 04/11/25 09:59 Dose: 20 mg Documented By: Admin: 04/10/25 08:05 Dose: 20 mg Documented By: Admin: 04/09/25 08:42 Dose: 20 mg Documented By: Admin: 04/08/25 08:25 Dose: 20 mg Documented By: PK Furosemide (Furosemide 40 Mg/4 Ml Vial) 40 mg IV [id number] KITA Stop: 05/08/25 13:59 Last Admin: 04/11/25 14:28 Dose: 40 mg Documented By: Admin: 04/11/25 06:37 Dose: 40 mg Documented By: Admin: 04/10/25 14:00 Dose: 40 mg Documented By: Admin: 04/10/25 07:57 Dose: 40 mg Documented By: Admin: 04/09/25 14:16 Dose: 40 mg Documented By: Admin: 04/09/25 08:43 Dose: 40 mg Documented By: Admin: 04/08/25 14:18 Dose: 40 mg Documented By: PK Gabapentin (Gabapentin 100 Mg Cap) 100 mg PO QAM KITA Stop: 05/08/25 08:59 Last Admin: 04/11/25 09:55 Dose: 100 mg Documented By: Admin: 04/10/25 08:02 Dose: 100 mg Documented By: Admin: 04/09/25 08:44 Dose: 100 mg Documented By: Admin: 04/08/25 08:18 Dose: 100 mg Documented By: PK Gabapentin (Gabapentin 300 Mg Cap) 300 mg PO QPM KITA Stop: 05/07/25 20:59 Last Admin: 04/10/25 20:24 Dose: 300 mg Documented By: Admin: 04/09/25 20:40 Dose: 300 mg Documented By: Admin: 04/08/25 20:34 Dose: 300 mg Documented By: Admin: 04/07/25 20:39 Dose: 300 mg Documented By: HNT Melatonin (Melatonin 3 Mg Tab) 3 mg PO HS PRN PRN Reason: Sleep Stop: 05/07/25 15:18 Last Admin: 04/07/25 21:21 Dose: 3 mg Documented By: HNT Montelukast Sodium (Montelukast Sodium 10 Mg Tablet) 10 mg PO QAM KITA Stop: 05/08/25 08:59 Last Admin: 04/11/25 09:56 Dose: 10 mg Documented By: Admin: 04/10/25 08:03 Dose: 10 mg Documented By: Admin: 04/09/25 08:43 Dose: 10 mg Documented By: Admin: 04/08/25 08:18 Dose: 10 mg Documented By: DUYEN Multivitamins/Minerals (Cerovite Adv Formula Tab) 1 tab PO QAM KITA Stop: 05/08/25 08:59 Last Admin: 04/11/25 09:54 Dose: 1 tab Documented By: Admin: 04/10/25 08:03 Dose: 1 tab Documented By: Admin: 04/09/25 08:43 Dose: 1 tab Documented By: Admin: 04/08/25 08:18 Dose: 1 tab Documented By: DUYEN Ondansetron HCl (Ondansetron Inj 2 Mg/Ml 2 Ml Vial) 4 mg IV Q6H PRN PRN Reason: Nausea Stop: 05/07/25 15:18 Last Admin: 04/08/25 19:50 Dose: 4 mg Documented By: Admin: 04/07/25 16:26 Dose: 4 mg Documented By: ANTONIO Oxycodone HCl (Oxycodone Hcl Ir 5 Mg Tab (Immediate Release)) 5 - 10 mg PO QID PRN PRN Reason: Pain Stop: 04/22/25 19:24 Last Admin: 04/11/25 12:43 Dose: 5 mg Documented By: Admin: 04/10/25 19:33 Dose: 10 mg Documented By: Admin: 04/09/25 20:38 Dose: 10 mg Documented By: TRISTEN Pantoprazole Sodium (Pantoprazole 40 Mg Tab) 40 mg PO QAM KITA Stop: 05/08/25 08:59 Last Admin: 04/11/25 09:54 Dose: 40 mg Documented By: Admin: 04/10/25 08:02 Dose: 40 mg Documented By: Admin: 04/09/25 08:43 Dose: 40 mg Documented By: Admin: 04/08/25 08:18 Dose: 40 mg Documented By: DUYEN Potassium Chloride (Potassium Chloride Crtab 20 Meq Tabcr) 20 meq PO QAM KITA Stop: 05/09/25 08:59 Last Admin: 04/11/25 09:59 Dose: 20 meq Documented By: Admin: 04/10/25 08:05 Dose: 20 meq Documented By: Admin: 04/09/25 08:42 Dose: 20 meq Documented By: PK Senna/Docusate Sodium (Docusate Sodium/Senna 50/8.6mg Tab) 1 tab PO BID PRN PRN Reason: Constipation Stop: 05/10/25 20:59 Last Admin: 04/10/25 17:15 Dose: 1 tab Documented By: PRAVEENK Spironolactone (Spironolactone 12.5 Mg Tab) 12.5 mg PO DAILY KITA Stop: 05/11/25 08:59 Last Admin: 04/11/25 09:55 Dose: 12.5 mg Documented By: Timolol Maleate (Timolol Maleate 0.5% Op Soln 5 Ml Btl) 1 drops OPB HS KITA Stop: 05/07/25 20:59 Last Admin: 04/10/25 20:25 Dose: 1 drops Documented By: Admin: 04/09/25 20:38 Dose: 1 drops Documented By: Admin: 04/08/25 20:35 Dose: 1 drops Documented By: Admin: 04/07/25 20:45 Dose: 1 drops Documented By: JOANNE
[2025-04-11 20:13] VITALS: TEMP 97.9
[2025-04-11] MEDS: MoRPHine SULFATE 4 MG/ML 1 ML CARP\\VIAL IV PRN (20:43)
[2025-04-12 07:55] VITALS: RESP 20
[2025-04-12] MEDS: dexAMETHasone 4 MG TAB PO SCH (07:55)
[2025-04-12] MEDS: FIRST - Mouthwash BLM 5 ML UDP PO PRN (07:59)
[2025-04-12 12:10] VITALS: BP 134/78; PULSE 74; O2SAT 91
--- NOTE | 2025-04-12 16:04 | Discharge Summary ---
Discharge Summary Date of Service April 12, 2025 Principal Dx & Hospital Course #1 = Principal Diagnosis (1) Pleural effusion, bilateral: Plan 69F PMH breast ca w/mets to the bone (diagnosed February,; currently off chemo due to weakness, last dose March 26), asthma, JUDITH, MDD, htn, gerd, IBS-M who presents for worsening SOB, chest pain for about a month. Pt reports she was actually having better weak in terms of SOB and then started w/ acute worsening sob on the day of arrival. She also had midsternal chest pain, constant, exacerbated w/ breathing and deep palpation. Pt denied fever, sore throat. She is being managed for the following: Progressive dyspnea Chest pain: Likely secondary to bony metastasis. Trop flat trends in 30s. Pt has constant chest pain. Await Echo. ro ACS, cardio on board. Breast ca w/mets to the bone Hyperbilirubinemia, elevated alk phos: in the setting of bone mets per onc Malignant Pleural Effusions -Admitting CXR: Cardiomegaly with pulmonary vascular congestion. Layering pleural effusions with bibasilar consolidation. The right pleural effusion is multiloculated. Bony sclerotic metastasis. -CTA Chest: No evidence for pulmonary embolism. Moderate pleural effusions. Diffuse sclerotic lesions throughout the bones consistent with metastasis. -BNP 406, RPP neg, WBC nl at presentation. -s/p Rt thoracentesis: 1250 ml fluid taken out. exudative effusion per light's criteria, Cx no growth, cytopatho +ve for metastatic adenocarcinoma. -per pulmonology, no need for pleurx catheter placement at this time -prognosis on scale of months given malignant pleural effusions, ECOG 3, poor nutritional status, has been through many lines of treatment Plan: -patient has chosen to focus on comfort, sign on with hospice -[facility] hospice referral placed -discharge tomorrow with hospice services Macrocytic anemia: likely iso chemotherapy. Monitor. folate and b12 level and iron studies --> all wnl. Other chronic medical conditions: asthma, HTN, GERD, JUDITH --> c/w or resume home meds as able. I spent a total of 50 minutes in direct patient care, including opyl-rw-[id number] time with the patient and/or family, reviewing medical records, ordering and reviewing diagnostic tests, and coordinating care with other healthcare providers. This time includes: history taking, physical examination, medical decision making, counseling, ECG interpretation, imaging interpretation, lab interpretation, orders, and education, excluding time spent in the performance of separately billed services. I spent a total of 30 minutes providing advanced care planning to the patient and/or family, including pmhu-md-lycu time discussing the patient's health status, prognosis, and treatment options. This time includes specific activities such as: discussing advance directives, goals of care, prognostication, and end-of-life planning. Notes For Next Care Provider 69F [facility] breast ca w/mets to the bone, asthma, JUDITH, MDD, htn, gerd, IBS-M who p resents for worsening SOB, chest pain. Noted to have bilateral pleural effusions, lculated right pleural effusion. Pulmonary consulted, performed thoracentesis, cytology came back with malignant pleural effusions. Patient with significant symptom relief post thoracentesis. GOC discussed with patient and family, patient does not want further treatments and wants to focus on quality of life at this time. Patient and family signed with [facility] hospice services. Patient discharged home with hospice services. To do: [ ] may need pleurx catheter placement pending rate of fluid reaccumulation Medication Changes From Visit -see below Admission HPI Per Admitting Provider 69F [facility] breast ca w/mets to the bone, asthma, JUDITH, MDD, htn, gerd, IBS-M who presents for worsening SOB, chest pain. Patient is accompanied by family who assist with history. State that for the last 1 month approximately she has been having SOB, which worsened until today when she had SOB at both rest and activity also with chest pain, L sided associated with breathing. They state that starting around October of last year she began to have pleural effusions, and then December began to have ascites when scanned by oncology. These fluid collections have been approximately stable. Currently she is taking a break from chemotherapy due to weakness. History of recent LLE swelling oncology did U/S which was negative. No other symptoms including fever, chills, palpitations. Discharge Exam Gen: A&O 3 NAD, sarcopenia noted HEENT: NCAT, EOMI, not icteric. External ears normal. No rhinorrhea. Moist mucous membranes. Neck: Supple, full range of motion, no observable masses, No meningeal sign. Lungs: No Respiratory distress. CV: RRR, no edema. Abdomen: Soft, nondistended, No rebound tenderness. MSK: No joint swelling, no redness. Skin: No rashes, petechiae, lesions. Normal color per patient. Neuro: Normal Gait, Grossly intact. Psych: Appropriate for situation. Updated Medication List Medication Instructions Recorded Confirmed Type brimonidine 0.2 %-timolol 0.5 % 1 drp ophthalmic (eye) BID 08/15/18 04/07/25 History eye drops (Combigan) duloxetine 60 mg capsule,delayed 60 mg PO HS 07/18/19 04/07/25 History release (Cymbalta) montelukast 10 mg tablet 10 mg PO QAM 11/26/19 04/07/25 History dorzolamide 2 % eye drops 1 drp OPB BID 01/19/20 04/07/25 History aspirin 81 mg tablet,delayed 81 mg PO QAM 08/12/20 04/07/25 History release calcium 600 mg (as 1 tab PO QAM 08/12/20 04/07/25 History carbonate)-vitamin D3 20 mcg (800 unit) tablet (Caltrate with Vitamin D3) esomeprazole magnesium 40 mg 40 mg PO QAM 08/12/20 04/07/25 History capsule,delayed release (Nexium) gabapentin 300 mg capsule 300 mg PO QPM 07/14/24 04/07/25 History albuterol sulfate 90 mcg/actuation 2 puff inhalation QID PRN 04/07/25 04/07/25 History aerosol inhaler Shortness Of Breath Or Wheezing bupropion HCl 150 mg 24 hr tablet, 150 mg PO HS 04/07/25 04/07/25 History extended release carvedilol 6.25 mg tablet 6.25 mg PO BID 04/07/25 04/07/25 History famotidine 20 mg tablet 20 mg PO HS 04/07/25 04/07/25 History fluticasone propionate 50 1 spray intranasal DAILY PRN 04/07/25 04/07/25 History mcg/actuation nasal Congestion spray,suspension gabapentin 100 mg capsule 100 mg PO QAM 04/07/25 04/07/25 History mv-mn-folic 200 mcg-vit K 15 1 cap PO QAM 04/07/25 04/07/25 History mcg-lutein 5 mg-zeaxanthin 1 mg capsule (PreserVision AREDS 2 Plus Multivit) ondansetron HCl 8 mg tablet 8 mg PO Q6H PRN Nausea And Vomiting 04/07/25 04/07/25 History prochlorperazine maleate 10 mg 10 mg PO Q6H PRN Nausea And 04/07/25 04/07/25 History tablet Vomiting dexamethasone 4 mg tablet 4 mg PO DAILY 30 days #30 tabs 04/12/25 Rx furosemide 20 mg tablet 20 mg PO BID #60 tabs 04/12/25 Rx spironolactone 25 mg tablet 12.5 mg (1/2 x 25 mg) PO DAILY #30 04/12/25 Rx tabs Hospital Stay Data Consultations 04/07/25 14:50 ED Decision to Admit Stat 04/07/25 15:19 Consult Pulmonology Routine 04/07/25 15:46 Consult Cardiology Stat 04/07/25 17:58 Consult Oncology Routine Diagnostic Imagining Performed 04/07/25 11:46 CT for pulmonary embolism PE [CT angio chest PE protocol] Stat 04/08/25 09:14 IR thoracentesis wo tube US Routine 04/10/25 US effusion-chest/mediastinum Routine Pending Results Patient Have Any Pending Studies at Discharge: No Discharge Instructions Given to Patient (Per Discharging Provider) 1. Please follow up with [facility] hospice services. Total Time Total Time Spent Total Time Spent (In Minutes): I spent a total of 35 minutes in direct patient care, including hovz-wo-srfw time with the patient and/or family, reviewing medical records, ordering and reviewing diagnostic tests, and coordinating care with other healthcare providers. This time includes: history taking, physical examination, medical decision making, counseling, ECG interpretation, imaging interpretation, lab interpretation, orders, and education, excluding time spent in the performance of separately billed services.
== END 2025-04-12 12:44 | disposition hospice, home (50) | DRG 597 ==
LOC: ED 11:28 → SUATTDRO 15:20 → 4W 15:20